=== PATIENT | female | born 1940 | race Caucasian/White ===

== ENCOUNTER → 2017-10-27 09:19 | Outpatient (CLI) | payer MEDICARE, BC, SELFPAY ==
[2017-10-27 12:05] LABS: International Normalized Ratio 2.2; Prothrombin Time (Protime)PT. 23.3 SECONDS (11.7-14.9)
== END ==
PROVIDERS: Family Provider Family Medicine; PCP Family Medicine; Visit Provider Internal Medicine Cardiovascular Disease
DX: I21.3 ST elevation (STEMI) myocardial infarction of unspecified site (principal); I48.1 Persistent atrial fibrillation
CPT/HCPCS: 36415; 85610

== ENCOUNTER → 2017-10-31 14:32 | Outpatient (CLI) | payer MEDICARE, BC, SELFPAY ==
[2017-10-28 14:37] VITALS: BP 119/76; BMI 28.1
--- NOTE | 2017-10-31 14:40 | RAD_ITS ---
STUDY: X-RAY BONE SURVEY COMPLETE REASON FOR EXAM: Female, 77 years old. Clonal gammopathy. TECHNIQUE: Single PA view of the chest. One view of the pelvis was obtained. 2 views of the cervical spine were obtained. 2 views of the thoracic spine were obtained. 2 views of the lumbar spine were obtained. AP views of the femur. AP views of the humerus and forearm AP and lateral views of the skull were obtained. COMPARISON: None. FINDINGS: CHEST: There is pleural thickening versus pleural effusion at the right lung base. There is atelectasis along the horizontal fissure. The heart is enlarged. There is a dual lead cardiac pacemaker as well as evidence of median sternotomy. Normal mediastinum and mariano. Normal visualized pulmonary arteries. There is atherosclerotic calcification of the aortic arch with tortuosity. Thoracic spine is obscured.. There is a remote fracture of the right humeral neck with nonunion and cephalad displacement of the humeral shaft. Post cystectomy clips are seen in the right upper quadrant. PELVIS: There is a non-specific bowel gas pattern. Normal visualized soft tissue structures. Normal bilateral iliac wings, sacroiliac joints and visualized sacrum. Normal visualized bilateral superior and inferior pubic rami. Normal pubic symphysis. Normal ischial tuberosities. Normal visualized right femoral head. Normal right acetabulum. There is mild articular joint space narrowing of the right hip. Normal visualized left femoral head. Normal left acetabulum. There is mild articular joint space narrowing of the left hip. CERVICAL SPINE: There are degenerative changes of the anterior atlantoaxial articulation. Normal odontoid process. Normal cervical lordosis. Normal vertebral bodies and endplates. Normal disc space heights. There is maintenance of normal alignment without evidence of vertebral fracture. The soft tissue structures are unremarkable. THORACIC SPINE: Normal kyphosis of the thoracic spine. There is no substantial scoliosis. Normal thoracic vertebrae and endplates. Normal disc space heights. No fracture or loss of vertebral height. The soft tissue structures are unremarkable. LUMBAR SPINE: There is straightening of the normal lumbar lordosis. There is no substantial scoliosis. There is a normal alignment of the vertebrae. There is generalized demineralization of the vertebral bodies. Normal disc space heights. There is no fracture or loss of vertebral axial height The soft tissue structures are unremarkable. RIGHT FEMUR: Normal visualized femur. Normal visualized soft tissue structure. Normal right tibia and fibula LEFT FEMUR: Normal visualized femur. Normal visualized soft tissue structure. Normal left tibia and fibula. RIGHT HUMERUS :Normal visualized humerus. There is no demonstrated fracture or osseous destructive process. Normal right forearm. There is no demonstrated soft tissue abnormality. LEFT HUMERUS:Normal visualized humerus. There is no demonstrated fracture or osseous destructive process. Normal left forearm. There is no demonstrated soft tissue abnormality. SKULL: There is no demonstrated soft tissue swelling. Normal osseous calvarium. Normal visualized facial bones. Normal visualized paranasal sinuses. RAD/Bone Survey Comp(Axial&Append) IMPRESSION: No evidence of lytic or blastic lesions. Electronically Signed: Phuc Kennedy DO at 18:52 EST Tel [phone], Service support ,
== END ==
PROVIDERS: Family Provider Family Medicine; PCP Family Medicine; Visit Provider Internal Medicine Hematology & Oncology
DX: D47.2 Monoclonal gammopathy (principal)
CPT/HCPCS: 77075

== ENCOUNTER → 2017-11-11 07:54 | Outpatient (CLI) | payer MEDICARE, BC, SELFPAY ==
[2017-11-11 11:55] LABS: International Normalized Ratio 2.5; Prothrombin Time (Protime)PT. 26.4 SECONDS (11.7-14.9)
== END ==
PROVIDERS: Family Provider Family Medicine; PCP Family Medicine; Visit Provider Internal Medicine Cardiovascular Disease
DX: I21.3 ST elevation (STEMI) myocardial infarction of unspecified site (principal); I48.1 Persistent atrial fibrillation
CPT/HCPCS: 36415; 85610

== ENCOUNTER → 2017-11-14 12:20 | Outpatient (CLI) | payer MEDICARE, BC, SELFPAY ==
[2017-11-14 16:10] LABS: BNP,B-Type NATRIURETIC PEPTIDE 776.2 pg/mL (0-100)
[2017-11-14 16:24] LABS: ALB/GLOB Ratio 1.2 RATIO (0.9-2.4); AST(SGOT) 14 U/L (15-37); Alanine Aminotransfer ALT/SGPT 12 U/L (13-56); Albumin, Serum 3.6 g/dL (3.2-5.0); Alkaline Phosphatase 115 U/L (45-117); Anion Gap 7 (5-15); BUN 24 mg/dL (7-18); BUN/Creat Ratio 17.6 RATIO (10-20); Calcium,Total 8.5 mg/dL (8.5-10.1); Chloride 107 mmol/L (98-107); Creatinine, Serum 1.36 mg/dL (0.55-1.02); EST Glomerular Filtration Rate 40 mL/min (>60); Est Glom Filt Rate - Afr Amer 49 mL/min (>60); Globulin 3.1 g/dL (2.2-4.2); Glucose 84 mg/dL (74-106); Potassium 3.9 mmol/L (3.5-5.1); Protein, Total 6.7 g/dL (6.4-8.2); Sodium Level 144 mmol/L (136-145); Thyroid Stim Hormone (TSH) 6.17 uIU/mL (0.358-3.74)
[2017-11-14 16:25] LABS: Absolute Lymphocyte Count 0.57 X10^3/ul (0.83-4.51); Absolute Neutrophil Count 2.5 X10^3/uL (2.0-7.7); Basophil# 0.03 X10^3/uL; Basophil% 0.8 % (0-1); Differential Indicated SCAN CRITERIA MET; Eosinophil# 0.14 X10^3/uL; Hematocrit 33.4 % (37-47); Hemoglobin 10.3 g/dl (12.0-15.0); Lymphocyte # 0.57 X10^3/ul (4.0); Lymphocyte % 16.1 % (19-41); Mean Corp Hgb Conc 30.8 g/gl (32-36); Mean Corpuscular Hgb 32.3 pg (27.0-32.0); Mean Corpuscular Volume 104.7 fL (81-99); Mean Platelet Vol. 10.6 fl (6.2-12.0); Monocyte% 8.5 % (0-10); Neutrophil # 2.49 X10^3/uL (2.7-7.7); Neutrophil % 70.3 % (47-70); POSITIVE COUNT NO; POSITIVE DIFFERENTIAL YES; POSITIVE MORPHOLOGY NO; Platelet Count 129 K/mm3 (150-450); RBC Distribution Width CV 14.1 % (11.6-14.6); RBC Distribution Width SD 54.3 fl (35.1-43.9); Red Blood Count 3.19 M/mm3 (4.2-5.4); White Blood Count 3.5 K/mm3 (4.4-11.0)
[2017-11-14 16:51] LABS: Anisocytosis 1+; Macrocytosis 1+; Platelet Estimate SLT DEC (ADEQ)
== END ==
PROVIDERS: Family Provider Family Medicine; PCP Family Medicine; Visit Provider Family Medicine
DX: N18.9 Chronic kidney disease, unspecified (principal); D64.9 Anemia, unspecified; I42.9 Cardiomyopathy, unspecified
CPT/HCPCS: 36415; 80053; 82306; 83880; 84443; 85025

== ENCOUNTER → 2017-11-25 09:07 | Outpatient (CLI) | payer MEDICARE, BC, SELFPAY ==
[2017-11-25 10:37] LABS: International Normalized Ratio 2.8; Prothrombin Time (Protime)PT. 29.4 SECONDS (11.7-14.9)
== END ==
PROVIDERS: Family Provider Family Medicine; PCP Family Medicine; Visit Provider Internal Medicine Cardiovascular Disease
DX: I48.1 Persistent atrial fibrillation (principal); I21.3 ST elevation (STEMI) myocardial infarction of unspecified site
CPT/HCPCS: 36415; 85610

== ENCOUNTER → 2017-12-16 09:29 | Outpatient (CLI) | payer MEDICARE, BC, SELFPAY ==
[2017-12-16 11:25] LABS: International Normalized Ratio 2.7; Prothrombin Time (Protime)PT. 28.6 SECONDS (11.7-14.9)
== END ==
PROVIDERS: Family Provider Family Medicine; PCP Family Medicine; Visit Provider Internal Medicine Cardiovascular Disease
DX: I21.3 ST elevation (STEMI) myocardial infarction of unspecified site (principal); I48.1 Persistent atrial fibrillation
CPT/HCPCS: 36415; 85610

== ENCOUNTER → 2017-12-30 10:11 | Outpatient (CLI) | payer MEDICARE, BC, SELFPAY ==
[2017-12-30 11:26] LABS: International Normalized Ratio 2.2; Prothrombin Time (Protime)PT. 24.4 SECONDS (11.7-14.9)
[2017-12-30 11:48] LABS: Anion Gap 8 (5-15); BUN 35 mg/dL (7-18); BUN/Creat Ratio 23.6 RATIO (10-20); Calcium,Total 8.2 mg/dL (8.5-10.1); Chloride 108 mmol/L (98-107); Creatinine, Serum 1.48 mg/dL (0.55-1.02); EST Glomerular Filtration Rate 36 mL/min (>60); Est Glom Filt Rate - Afr Amer 44 mL/min (>60); Glucose 87 mg/dL (74-106); Potassium 3.7 mmol/L (3.5-5.1); Sodium Level 145 mmol/L (136-145)
== END ==
PROVIDERS: Nurse Practitioner Family; Family Provider Family Medicine; PCP Family Medicine; Visit Provider Internal Medicine Cardiovascular Disease
DX: I21.3 ST elevation (STEMI) myocardial infarction of unspecified site (principal); I48.1 Persistent atrial fibrillation; I50.9 Heart failure, unspecified; Z79.01 Long term (current) use of anticoagulants; I48.0 Paroxysmal atrial fibrillation
CPT/HCPCS: 36415; 80048; 85610

== ENCOUNTER → 2018-01-22 08:46 | Outpatient (CLI) | payer MEDICARE, BC, SELFPAY ==
[2018-01-22 12:51] LABS: International Normalized Ratio 3.4; Prothrombin Time (Protime)PT. 34.5 SECONDS (11.7-14.9)
== END ==
PROVIDERS: Family Provider Family Medicine; PCP Family Medicine; Visit Provider Internal Medicine Cardiovascular Disease
DX: I48.1 Persistent atrial fibrillation (principal); I21.3 ST elevation (STEMI) myocardial infarction of unspecified site; Z79.01 Long term (current) use of anticoagulants
CPT/HCPCS: 36415; 85610

== ENCOUNTER 2018-01-25 20:49 | Inpatient (IN) | payer MEDICARE, BC, SELFPAY ==
[2018-01-25 20:51] VITALS: BP 109/71; PULSE 71; RESP 26; TEMP 36.9; O2SAT 99; BMI 27.4
--- NOTE | 2018-01-25 21:27 | EKG12_ITS ---
Test Reason : SOB Blood Pressure : / mmHG Vent. Rate : 141 BPM Atrial Rate : 038 BPM P-R Int : 000 ms QRS Dur : 090 ms QT Int : 086 ms P-R-T Axes : 000 -24 000 degrees QTc Int : 131 ms Electronic ventricular pacemaker Borderline ECG Confirmed by ESVIN PAUL, LEANDRO ([id number]), publications editor OG SANDRA ([id number]) on 01/28/2018 1:19:55 PM Referred By: DAISY Confirmed By:LEANDRO MCALLISTER MD
--- NOTE | 2018-01-25 21:27 | RAD_ITS ---
STUDY: X-RAY CHEST REASON FOR EXAM: Female, 77 years old. Increased shortness of breath TECHNIQUE: Single AP portable view of the chest. COMPARISON: 05/28/2017. FINDINGS: Left-sided pacemaker. The lungs are clear and expanded. There is no demonstrated pleural abnormality. There is moderate cardiac enlargement. Patient status post sternotomy. Normal mediastinum and mariano. Normal visualized pulmonary arteries. Normal visualized aortic arch and descending thoracic aorta. Normal visualized thoracic spine. Normal visualized ribs, clavicles, and shoulders. There is no demonstrated abnormality of the visualized soft tissue structures of the upper abdomen. RAD/Chest 1 View (Portable) IMPRESSION: No infiltrate. Stable cardiomegaly. Electronically Signed: Maurice Da Silva DO at 22:28 EDT , Service support ,
--- NOTE | 2018-01-25 21:28 | CT_ITS ---
CT Abdomen And Pelvis W/O Contrast INDICATION: SOB since this am, tender abd COMPARISON: None TECHNIQUE: Noncontrast axial CT examination of the abdomen and pelvis with coronal and sagittal reformatted images. FINDINGS: The heart size is markedly enlarged. A moderate-sized right-sided pleural effusion is present. The liver is normal in size. Liver contour is mildly nodular, cannot exclude cirrhosis. The gallbladder is surgically absent. The spleen is at the upper limits of normal for size. There is a questionable 3 cm hypodense lesion seen projecting at the level of the head of the pancreas, this is difficult to confirm due to the lack of oral and IV contrast. The body and tail of the pancreas appear atrophic. The kidneys demonstrate cortical renal thinning. No evidence of nephrolithiasis or hydronephrosis. The bowel loops are nondistended. The appendix is not well seen. There is no evidence of free air or free fluid. The osseous structures are osteopenic and demonstrate a superior endplate compression deformity of T11 and mild multilevel degenerative disc disease. CT/Abdomen/Pelvis without Cont IMPRESSION: Questionable approximately 3 cm hypodense lesion in the head of the pancreas, difficult to further evaluate without oral and IV contrast. Marked cardiomegaly and moderate right pleural effusion. Cirrhotic morphology of the liver. No evidence of significant splenomegaly or ascites. Cortical renal thinning. No evidence of bowel obstruction. at [id number] Reported and signed by: Shahana Maddox MD Electronically Signed: Shahana Maddox MD at 23:18 EDT Tel , Service support ,
[2018-01-25 21:42] VITALS: BP 124/64; PULSE 73; RESP 20; O2SAT 99
[2018-01-25 21:43] VITALS: O2SAT 98
--- NOTE | 2018-01-25 22:12 | ED.DCSUM_ITS ---
- ER Visit Summary Date of Service: 01/25/18 Chief Complaint: Shortness of breath History of Present Illness: The patient is a 77 F presenting with shortness of breath. She states this started today. She has shortness of breath worsened with exertion. She denies chest pain. She has had a dry cough. She denies fever. She has had diarrhea. She has history of CHF. She is on home O2 2 L. Her son states when he came home to check on her she was wearing the oxygen but was gasping for air. EMS was called. He is unsure of the oxygen tank was working at home. Physical Examination: Vitals are stable. Patient is afebrile. Alert no acute distress. 99% on 3 L HEENT exam is unremarkable. Neck is supple. Lungs are diminished bilaterally. Heart is regular rate and rhythm. Abdomen is soft mild diffuse tenderness with no rebound or guarding. Extremities are unremarkable. Skin is warm and dry. No focal neurologic deficit. Remainder of exam is unremarkable. Emergency Department Course and Treatment: EKG is paced unchanged from previous. Chest x-ray shows cardiomegaly, right pleural effusion. CBC shows a white count of 3.7, hemoglobin 9.7, platelets 117. INR is 2.1. Troponin is negative. Chemistries show sodium 147, BUN 25, creatinine 1.24. CT abdomen pelvis shows Questionable approximately 3 cm hypodense lesion in the head of the pancreas, difficult to further evaluate without oral and IV contrast. Marked cardiomegaly and moderate right pleural effusion. Cirrhotic morphology of the liver. No evidence of significant splenomegaly or ascites. Cortical renal thinning. No evidence of bowel obstruction. She is advised of these findings and will need follow-up for additional studies. Her son is unsure if her oxygen tank is working. She is improved on nasal cannula in the emergency department. Discussed with the hospitalist for observation. Disposition: Observation Impression: CHF exacerbation, right pleural effusion This note was generated with [employer] dictation software. It may contain incorrect words, spelling, and punctuation that were not noted in review of the chart prior to signing ED Disposition - Plan for ED Patient: Chief Complaint: Shortness of Breath Referrals: Landry Muse MD [Primary Care Provider] -
[2018-01-25 22:17] LABS: Absolute Lymphocyte Count 0.64 X10^3/ul (0.83-4.51); Absolute Neutrophil Count 2.4 X10^3/uL (2.0-7.7); Basophil# 0.01 X10^3/uL; Basophil% 0.3 % (0-1); Eosinophil# 0.31 X10^3/uL; Eosinophils% 8.5 % (0-5); Hematocrit 31.6 % (37-47); Hemoglobin 9.7 g/dl (12.0-15.0); Lymphocyte # 0.64 X10^3/ul (4.0); Lymphocyte % 17.5 % (19-41); Mean Corp Hgb Conc 30.7 g/gl (32-36); Mean Corpuscular Hgb 31.9 pg (27.0-32.0); Mean Corpuscular Volume 103.9 fL (81-99); Mean Platelet Vol. 9.9 fl (6.2-12.0); Monocyte# 0.34 X10^3/uL; Monocyte% 9.3 % (0-10); Neutrophil # 2.36 X10^3/uL (2.7-7.7); Neutrophil % 64.4 % (47-70); Platelet Count 117 K/mm3 (150-450); RBC Distribution Width CV 14.1 % (11.6-14.6); RBC Distribution Width SD 53.5 fl (35.1-43.9); Red Blood Count 3.04 M/mm3 (4.2-5.4); White Blood Count 3.7 K/mm3 (4.4-11.0)
[2018-01-25 22:21] LABS: International Normalized Ratio 2.1; POSITIVE COUNT NO; POSITIVE DIFFERENTIAL NO; POSITIVE MORPHOLOGY NO; Prothrombin Time (Protime)PT. 23.8 SECONDS (11.7-14.9)
[2018-01-25 22:27] LABS: Anion Gap 5 (5-15); BUN 25 mg/dL (7-18); BUN/Creat Ratio 20.2 RATIO (10-20); Calcium,Total 7.9 mg/dL (8.5-10.1); Chloride 112 mmol/L (98-107); Creatinine, Serum 1.24 mg/dL (0.55-1.02); EST Glomerular Filtration Rate 45 mL/min (>60); Est Glom Filt Rate - Afr Amer 54 mL/min (>60); Estimated Creatinine Clearance 33.33 ml/min; Glucose 93 mg/dL (74-106); Potassium 3.7 mmol/L (3.5-5.1); Sodium Level 147 mmol/L (136-145)
[2018-01-25 23:12] VITALS: BP 135/82; PULSE 70; RESP 21; O2SAT 97
[2018-01-25 23:40] VITALS: BP 135/82; PULSE 70; RESP 24; TEMP 36.9; O2SAT 97
[2018-01-26] VITALS (18 sets, daily range): BP systolic 102–132; BP diastolic 48–69; PULSE 65–78; RESP 14–20; TEMP 36.4–37.3; O2SAT 95–98; BMI 27.1
--- NOTE | 2018-01-26 00:05 | PCM.HP.STD ---
Problem List (1) Atrial flutter Status: Chronic (2) Dilated cardiomyopathy Status: Chronic (3) Paroxysmal atrial fibrillation Status: Chronic (4) Pancytopenia Status: Chronic (5) Biventricular congestive heart failure Status: Chronic (6) Cardiac pacemaker in situ Status: Chronic (7) CKD (chronic kidney disease), stage III Status: Chronic (8) Depression Status: Chronic (9) Esophageal reflux Status: Chronic (10) Chronic respiratory failure Status: Chronic (11) AICD (automatic cardioverter/defibrillator) present Status: Chronic Comment: ICD Implant January 2007, ICD Extraction/upgrade to a biventricular pacemaker 06/28; Pulse generator change & AV node ablation 09/23/12; Pacemaker generator change 05/22/17 (12) Hyperlipidemia Status: Chronic History of Present Illness Date of Admission: 01/26/18 Chief Complaint: Shortness of breath. The patient is a 77 year old F with multiple medical comorbidities as mentioned above presented to the emergency room because of shortness of breath. Her symptoms started few days ago with shortness of breath at rest, worse than usual and today, she was more short of breath and gasping for air at rest and her oxygen did not help. Shortness of breath aggravated by even minimal activity and did not relieved by rest, associated with dry cough and without other associated symptoms. She denied chest pain, palpitation, dizziness or lightheadedness. She denies fever or chills. Her son was at the bedside and he mentioned that his home oxygen does not work properly. She has history of combined systolic and diastolic CHF with ejection fraction of 20% status post ICD and she has been on Lasix. She saw Dr. Springer this past Friday for follow-up and she was doing okay. She has history of chronic respiratory failure secondary to CHF and she has been on oxygen at 2 L. She has history of paroxysmal atrial fibrillation and she has been on Coreg for rate control and on Coumadin for anticoagulation. She has history of stage III chronic kidney disease and likely has been stable and it is around 1.3-1.7 mg/dL. She has history of pancytopenia and she was evaluated by hematology and was diagnosed with monoclonal gammopathy of unknown significance. In the emergency department, she was dyspneic and tachypneic pulse ox was 99% on 3 L. After she was placed on oxygen in the ER, she felt significantly better but she remained on 3 L which is up from her baseline. Her routine blood work is remarkable for chronic pancytopenia, creatinine of 1.24 and BUN of 25. Troponin was negative. Chest x-ray revealed cardiomegaly, small right pleural effusion, minimal bilateral pulmonary vascular congestion. She is being admitted for acute on chronic combined diastolic and systolic CHF. Past Medical History Past Medical History (Chronic Problems): Chronic Problems (Last Updated 01/25/18 @ 23:43 by Martha Hernandez MD) Atrial flutter (Chronic) Dilated cardiomyopathy (Chronic) Nonrheumatic mitral valve regurgitation (Chronic) Paroxysmal atrial fibrillation (Chronic) MGUS (monoclonal gammopathy of unknown significance) (Chronic) Pancytopenia (Chronic) Biventricular congestive heart failure (Chronic) Cardiac pacemaker in situ (Chronic) CKD (chronic kidney disease), stage III (Chronic) Chronic systolic congestive heart failure (Chronic) CHF (congestive heart failure) (Chronic) Depression (Chronic) Esophageal reflux (Chronic) Heart valve replaced (Chronic) Mitral & Tricuspid valves replaced 05/19/09 @ [facility] HTN (hypertension) (Chronic) Primary cardiomyopathy (Chronic) 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) Chronic respiratory failure (Chronic) S/P mitral valve repair (Chronic) 05/19/09, Mitral valve repair with placement of #26 Fletcher-Madison annuloplasty ring, placement of Linn stitch & tricuspid valve repair with placement of #28 tricuspid annuloplasty ring @ [facility] S/P tricuspid valve repair (Chronic) 05/19/09 @ [facility] Status post ablation of atrial flutter (Chronic) Ventricular tachycardia (Chronic) AICD (automatic cardioverter/defibrillator) present (Chronic) ICD Implant January 2007, ICD Extraction/upgrade to a biventricular pacemaker 06/28; Pulse generator change & AV node ablation 09/23/12; Pacemaker generator change 05/22/17 Hyperlipidemia (Chronic) Pulmonary embolus (Chronic) Mural thrombus of cardiac apex (Chronic) Allergies levothyroxine sodium [From Synthroid] Allergy (Severe, Verified 01/23/18 14:09) Pt states it caused renal failure. thyroid, pork [From Stollings Thyroid] Allergy (Severe, Verified 01/23/18 14:09) Unknown Pt states it caused renal failure latex Allergy (Intermediate, Verified 01/23/18 14:09) Rash Home Medications: Ambulatory Orders Medication Instructions Recorded hydrALAZINE [Apresoline] 25 mg PO TID 06/29/14 Mirtazapine [Remeron] 45 mg PO QHS 10/03/15 Sertraline HCl [Zoloft] 100 mg PO QHS 10/03/15 Carvedilol [Coreg (Beta Ashwini)] 6.25 mg PO BID tab 01/14/16 Sertraline HCl [Zoloft] 50 mg PO 1200 05/28/17 Dicyclomine HCl [Bentyl] 10 mg PO DAILY 08/29/17 Melatonin/Pyridoxine HCl (B6) 10 mg PO DAILY 08/29/17 [Melatonin 10 mg Tablet] cyanocobalamin (vit B-12) 500 mcg 500 mcg PO BID tab 12/12/17 tablet lorazepam 0.5 mg tablet 0.5 mg PO BID 12/12/17 potassium chloride ER 10 mEq 10 meq PO DAILY cap 12/12/17 capsule,extended release furosemide 20 mg tablet 40 mg PO QDAY tab 01/23/18 isosorbide mononitrate ER 30 mg 15 mg PO QAM #15 tab 01/23/18 tablet,extended release 24 hr sacubitril 24 mg-valsartan 26 mg 1 tab PO BID #60 tab 01/23/18 tablet warfarin 2 mg tablet 2 mg PO .COMPLEX #90 tab 01/23/18 Surgical History: cholecystectomy, hysterectomy, pacemaker implantation, tonsillectomy, - - ICD placement. Psychiatric History: Anxiety Lives: With Family Smoking Status: Never smoker Alcohol: None Drugs: None - *Family History Maternal History Items: Heart Disease Paternal History Items: Heart Disease Review of Systems Constitutional: Denies: Anorexia, Chills, Fever, Weakness Eyes: Denies: Blurred vision, Conjunctivae Inflammation, Drainage, Redness HEENT: Denies: Difficulty Hearing, Ear Pain, Eye Pain, Nasal Congestion, Sore Throat Cardiovascular: Reports: Edema, Orthopnea, Paroxysmal Noc. Dyspnea. Denies: Chest Pain, Chest Pressure, Heaviness, Light Headedness, Syncope Respiratory: Reports: Cough, Shortness of breath at rest, Shortness of breath upon exertion. Denies: Sputum production, Wheezing Gastrointestinal: Denies: Abdominal Pain, Constipation, Diarrhea, Nausea, Vomiting Genitourinary: Denies: Dysuria, Frequency, Hematuria Musculoskeletal: Denies: Arm Pain, Back Pain, Foot Pain Skin: Denies: Dryness, Rash Neurological: Denies: Balance problems, Double vision, Change in Speech, Slurred speech, Confusion, Headaches, Incoordination, Numbness Psychiatric: Reports: Depression. Denies: Anxiety Endocrine: Denies: Change in Body Habitus, Polydipsia VTE Information - Inpt Only VTE Present on Admission: No VTE Mechan Device Prophylaxis: None VTE Pharm Prophylaxis ordered?: No - Physical Exam General: Alert, Oriented x3, Cooperative, - - Moderately short of breath. HEENT: Atraumatic, PERRLA, EOMI Oral: Moist Mucosa, No Gingival or Mucosal Lesions/ Ulcerations Neck: Supple, No JVD, Negative Carotid Bruits, Trachea Midline, Thyroid Normal Size and Texture Lungs: No wheeze, Diminished, Rales, Rhonchi, Short of Breath, - - Markedly decreased breath sounds on the right base, crackles, scattered rhonchi. Cardiovascular: Regular rate, Regular Rhythm, Normal S1, Normal S2, PMI Normal Abdomen: Bowel Sounds Present, Soft, Non Tender, Non-Distended, No Hepato-splenomegaly Extremities: No clubbing, No cyanosis, No edema Skin: No rashes, No breakdown Lymphatic: No Cervical, Supraclavicular, or Inguinal Adenopathy Neurological: Cranial nerves II-XII grossly intact, Motor Exam 5/5 strength throughout Psych/Mental Status: Normal Affect, Appropriate, Alert and oriented to time, place, person, mood and affect Vital Signs Temp Pulse Resp BP Pulse Ox 98.5 F 70 24 H 135/82 H 97 01/25/18 23:40 01/25/18 23:40 01/25/18 23:40 01/25/18 23:40 01/25/18 23:40 Oxygen Flow Rate (L/min) 2 Oxygen Delivery Method Nasal Cannula Weight: 160 lb Body Mass Index (BMI) 27.4 Laboratory Tests Past 24 Hrs 01/25/18 01/25/18 01/25/18 22:01 22:01 22:01 WBC 3.7 L RBC 3.04 L Hgb 9.7 L Hct 31.6 L MCV 103.9 H MCH 31.9 MCHC 30.7 L RDW 14.1 RDW Differential 53.5 H Plt Count 117 L MPV 9.9 Immature Gran % (Auto) 0.000 Neut % (Auto) 64.4 Lymph % (Auto) 17.5 L [place] % (Auto) 9.3 Eos % (Auto) 8.5 H Baso % (Auto) 0.3 Absolute Neuts (auto) 2.4 Absolute Lymphs (auto) 0.64 L Total Counted Not Reportable PT 23.8 H INR 2.1 Sodium 147 H Potassium 3.7 Chloride 112 H Carbon Dioxide 30.0 Anion Gap 5 BUN 25 H Creatinine 1.24 H Estim Creat Clear Calc 33.33 Est GFR (MDRD) Af Amer 54 L Est GFR (MDRD) Non-Af 45 L BUN/Creatinine Ratio 20.2 H Glucose 93 Calcium 7.9 L Troponin I < 0.02 Clinical Impression(s) from Imaging Studies Chest X-Ray 01/25/18 21:27 IMPRESSION: No infiltrate. Stable cardiomegaly. Electronically Signed: Maurice Da Silva DO at 22:28 EDT , Service support , Abdomen/Pelvis CT 01/25/18 21:28 IMPRESSION: Questionable approximately 3 cm hypodense lesion in the head of the pancreas, difficult to further evaluate without oral and IV contrast. Marked cardiomegaly and moderate right pleural effusion. Cirrhotic morphology of the liver. No evidence of significant splenomegaly or ascites. Cortical renal thinning. No evidence of bowel obstruction. at 2319 Reported and signed by: Shahana Maddox MD Electronically Signed: Shahana Maddox MD at 23:18 EDT Tel , Service support , Assessment/Plan This is a 77 years old female patient presented to the emergency room because of worsening shortness of breath and she has been having concerns about her home oxygen that is not properly working and she was found to have acute on chronic combined systolic and diastolic CHF and slightly worsening right side small pleural effusion. #1 probable acute on chronic combined systolic and diastolic CHF: Admit to PCU, cardiac catheterization technologist, serial cardiac enzymes, fluid restriction to less than 1500 cc daily, IV Lasix for diuresis, continue Coreg, hydralazine and isosorbide mononitrate, input output chart, oxygen by nasal cannula to keep O2 saturation more than 92%, PT OT evaluation and treatment. #2 right-sided small pleural effusion: Chest x-ray reviewed as well as previous chest x-rays. She does have chronic small right pleural effusion and she mentioned that she had thoracentesis in the past. Chest x-ray from today revealed very slightly larger right pleural effusion. This is likely transudative because of CHF. Plan for IV Lasix for diuresis. #3 paroxysmal atrial fibrillation: Status post pacemaker. Rate is controlled, continue Coreg for rate control and Coumadin for anticoagulation. INR is therapeutic. Patient used to be on amiodarone, not any longer. #4 biventricular congestive heart failure/cardiomyopathy: Status post ICD. She is no acute on chronic CHF as above. Plan as above. #5 stage III chronic kidney disease: Baseline creatinine has been around 1.3-1.7 mg/dL. Admission creatinine is 1.24, stable at baseline. Expect creatinine to go up with IV diuresis. #6 chronic respiratory failure: Secondary to CHF, patient has been on oxygen at 2 L. Son reported that her oxygen equipment is not working properly because she felt significantly better after she received oxygen in the emergency room. #7 hypertension: Blood pressure stable, continue Coreg, hydralazine and nitrates. #8 hyperlipidemia: She is not on statins. #9 DVT prophylaxis: On Coumadin, INR is therapeutic. Other chronic medical problems: #1 valvular heart disease, status post mitral valve repair and tricuspid valve repair. #2 depression. #3 GERD. #4 chronic pancytopenia/MGUS. This note was generated with [employer] dictation software. It may contain incorrect words, spelling, and punctuation that were not noted in checking the note before signing. Code Visit Inpatient E&M: 35491 Init Hosp L3
[2018-01-26 02:27] LABS: BNP,B-Type NATRIURETIC PEPTIDE 1252.2 pg/mL (0-100)
[2018-01-26 02:44] LABS: Magnesium 2.4 mg/dL (1.6-2.6)
[2018-01-26 06:03] LABS: Absolute Lymphocyte Count 0.67 X10^3/ul (0.83-4.51); Absolute Neutrophil Count 1.6 X10^3/uL (2.0-7.7); Basophil# 0.02 X10^3/uL; Basophil% 0.7 % (0-1); Eosinophil# 0.24 X10^3/uL; Eosinophils% 8.5 % (0-5); Hematocrit 29.7 % (37-47); Hemoglobin 9.2 g/dl (12.0-15.0); Lymphocyte # 0.67 X10^3/ul (4.0); Lymphocyte % 23.7 % (19-41); Mean Corpuscular Hgb 33.2 pg (27.0-32.0); Mean Corpuscular Volume 107.2 fL (81-99); Mean Platelet Vol. 9.7 fl (6.2-12.0); Monocyte# 0.29 X10^3/uL; Monocyte% 10.2 % (0-10); Neutrophil # 1.61 X10^3/uL (2.7-7.7); Neutrophil % 56.9 % (47-70); Platelet Count 100 K/mm3 (150-450); RBC Distribution Width CV 13.6 % (11.6-14.6); RBC Distribution Width SD 50.7 fl (35.1-43.9); Red Blood Count 2.77 M/mm3 (4.2-5.4); White Blood Count 2.8 K/mm3 (4.4-11.0)
[2018-01-26 06:05] LABS: Prothrombin Time (Protime)PT. 22.7 SECONDS (11.7-14.9)
[2018-01-26 06:11] LABS: POSITIVE COUNT NO; POSITIVE DIFFERENTIAL NO; POSITIVE MORPHOLOGY NO
[2018-01-26] MEDS: hydrALAZINE 25 MG Tablet PO ×3 (06:12→21:51)
[2018-01-26] MEDS: Dicyclomine 10 MG Capsule PO (06:13)
[2018-01-26 06:24] LABS: Anion Gap 5 (5-15); BUN 28 mg/dL (7-18); BUN/Creat Ratio 20.3 RATIO (10-20); Calcium,Total 8.5 mg/dL (8.5-10.1); Chloride 108 mmol/L (98-107); Creatinine, Serum 1.38 mg/dL (0.55-1.02); EST Glomerular Filtration Rate 39 mL/min (>60); Est Glom Filt Rate - Afr Amer 48 mL/min (>60); Estimated Creatinine Clearance 29.95 ml/min; Glucose 85 mg/dL (74-106); Sodium Level 145 mmol/L (136-145)
[2018-01-26] MEDS: Carvedilol 6.25 MG Tablet PO ×2 (08:53→21:52)
[2018-01-26] MEDS: Isosorbide Mononitrate 30 MG Tablet 15 MG PO (08:54)
[2018-01-26] MEDS: SACUBITRIL/VALSARTAN 24/26 MG TABLET 1 EACH PO ×2 (08:54→21:53)
[2018-01-26] MEDS: Furosemide 40 MG/4 ML Vial IV ×2 (08:54→17:03)
[2018-01-26] MEDS: 0.9% NaCl Peripheral Flush Adult/Peds IV ×2 (08:57→17:03)
[2018-01-26] MEDS: LORazepam 0.5 MG Tablet PO ×2 (08:57→21:57)
--- NOTE | 2018-01-26 08:59 | PCM.PN.HOSP ---
Subjective: Patient is a 77-year-old lady with history of systolic congestive heart failure with an EF of 20-25% started on Entresto 3 days prior to her admission. Presented with shortness of breath and assessment of congestive heart failure made admitted to a monitored bed for further management Objective: GENERAL: dyspneic at rest HEENT: Clear conjunctiva, NECK; supple, distended JVD. CHEST: Diminished to auscultation bilaterally, HEART: Regular S1 S2,systolic murmurs ABDOMEN: soft, non-tender, normoactive bowel sounds, RECTAL: deferred EXTREMITIES: No edema, no clubbing, no cyanosis. 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 SKIN: No lesions no erythema, Vitals/I&O's: Vital Signs Temp Pulse Resp BP Pulse Ox 98.0 F 73 14 115/52 L 98 01/26/18 08:50 01/26/18 08:50 01/26/18 08:50 01/26/18 08:50 01/26/18 08:50 Oxygen Flow Rate (L/min) 2 Oxygen Delivery Method Nasal Cannula Weight: 71.6 kg Body Mass Index (BMI) 27.1 Intake and Output for Last 24 Hours 01/24/18 01/25/18 01/26/18 23:59 23:59 23:59 Intake Total 75 / 75 Output Total 100 / 100 Balance -25 / -25 Laboratory Results 01/26/18 02:10: Troponin I < 0.02 01/26/18 02:10: Magnesium 2.4 01/26/18 05:35: WBC 2.8 L, RBC 2.77 L, Hgb 9.2 L, Hct 29.7 L, MCV 107.2 H, MCH 33.2 H, MCHC 31.0 L, RDW 13.6, RDW Differential 50.7 H, Plt Count 100 L, MPV 9.7, Immature Gran % (Auto) 0.000, Neut % (Auto) 56.9, Lymph % (Auto) 23.7, Placer % (Auto) 10.2 H, Eos % (Auto) 8.5 H, Baso % (Auto) 0.7, Absolute Neuts (auto) 1.6 L, Absolute Lymphs (auto) 0.67 L, Total Counted Not Reportable 01/26/18 05:35: PT 22.7 H, INR 2.0 01/26/18 05:35: Sodium 145, Potassium 4.0, Chloride 108 H, Carbon Dioxide 32.0, Anion Gap 5, BUN 28 H, Creatinine 1.38 H, Estim Creat Clear Calc 29.95, Est GFR (MDRD) Af Amer 48 L, Est GFR (MDRD) Non-Af 39 L, BUN/Creatinine Ratio 20.3 H, Glucose 85, Calcium 8.5, Troponin I < 0.02 Current Medications Albuterol Sulfate (Ventolin Aerosols) 2.5 mg INHALATION Q4H PRN PRN PRN Reason: Shortness of breath Carvedilol (Coreg) 6.25 mg PO BID [facility] Last Admin: 01/26/18 08:53 Dose: 6.25 mg Dicyclomine HCl (Bentyl) 10 mg PO DAILY@0700 [facility] Last Admin: 01/26/18 06:13 Dose: 10 mg Furosemide (Lasix) 40 mg IV BID@1000,1800 [facility] Last Admin: 01/26/18 08:54 Dose: 40 mg Hydralazine HCl (Apresoline) 25 mg PO TID [facility] Last Admin: 01/26/18 06:12 Dose: 25 mg Sodium Chloride () 250 mls @ 15 mls/hr IV .[id number] PRN PRN Reason: SALINE FLUSH Isosorbide Mononitrate (Imdur) 15 mg PO QAM [facility] Last Admin: 01/26/18 08:54 Dose: 15 mg Lorazepam (Ativan) 0.5 mg PO BID [facility] Last Admin: 01/26/18 08:57 Dose: 0.5 mg Magnesium Hydroxide (Milk Of Magnesia) 30 ml PO DAILY PRN PRN Reason: Constipation Melatonin (Melatonin) 10 mg PO DAILY@2200 [facility] Mirtazapine (Remeron) 45 mg PO QHS [facility] Nutritional Formula (Lactose Free) (Ensure Enlive) 120 ml PO TIDCM [facility] Last Admin: 01/26/18 08:53 Dose: Not Given Potassium Chloride (K-Dur) 10 meq PO DAILYCM [facility] Last Admin: 01/26/18 08:53 Dose: 10 meq Sertraline HCl (Zoloft) 50 mg PO 1200 [facility] Sertraline HCl (Zoloft) 100 mg PO QHS [facility] Sodium Chloride () 5 - 30 ml IV UD PRN PRN Reason: SALINE FLUSH Last Admin: 01/26/18 08:57 Dose: 10 ml Warfarin Sodium (Coumadin (Pbkc)) 2 mg PO SuFrSa@1700 [facility] PRN Reason: Protocol Warfarin Sodium (Coumadin (Pbkc)) 1 mg PO MoTuWeTh@1700 [facility] PRN Reason: Protocol Medical Necessity - Tobacco Use Smoking Status: Never smoker Tobacco Use: Non-smoker Assessment/Plan Patient is a 77-year-old lady with history of systolic congestive heart failure with an EF of 20-25% started on Entresto 3 days prior to her admission. Presented with shortness of breath and assessment of congestive heart failure made admitted to a monitored bed for further management 1. Acute on chronic heart failure with reduced ejection fraction.: Patient has been admitted to regular nursing floor placed on fluid restriction, strict input and output daily with an IV Lasix in addition to supplemental oxygen X 2. Right-sided pleural effusion attributed to patient congestive heart failure improved with diuresis 3. Chronic hypoxic respiratory failure secondary to patient CHF on baseline home O2 4. Valvular heart disease with previous history of mitral valve repair as well as tricuspid valve repair 5. Cardiomyopathy with an ejection fraction of 20-25% status post AICD placement 6. Conduction system disorder status post pacemaker placement 7. Paroxysmal A. fib rate controlled on Coreg; on systemic anticoagulation with Coumadin INR is therapeutic 8. Hypertension-blood pressure controlled, home medications continued with dose adjustment as needed 9. Depression per History 10. Chronic pancytopenia 11. MGUS 12. Dyslipidemia. History 13. DVT prophylaxis on Coumadin with therapeutic INR 14. Questionable approximately 3 cm hypodense lesion in the head of the pancreas, CT of the abdomen with oral and IV contrast ordered for subsequent evaluation Active Medications Albuterol Sulfate (Ventolin Aerosols) 2.5 mg INHALATION Q4H PRN PRN PRN Reason: Shortness of breath Carvedilol (Coreg) 6.25 mg PO BID [facility] Last Admin: 01/26/18 08:53 Dose: 6.25 mg Dicyclomine HCl (Bentyl) 10 mg PO DAILY@0700 [facility] Last Admin: 01/26/18 06:13 Dose: 10 mg Furosemide (Lasix) 40 mg IV BID@1000,1800 [facility] Last Admin: 01/26/18 08:54 Dose: 40 mg Hydralazine HCl (Apresoline) 25 mg PO TID [facility] Last Admin: 01/26/18 06:12 Dose: 25 mg Sodium Chloride () 250 mls @ 15 mls/hr IV .[id number] PRN PRN Reason: SALINE FLUSH Isosorbide Mononitrate (Imdur) 15 mg PO QAM [facility] Last Admin: 01/26/18 08:54 Dose: 15 mg Lorazepam (Ativan) 0.5 mg PO BID [facility] Last Admin: 01/26/18 08:57 Dose: 0.5 mg Magnesium Hydroxide (Milk Of Magnesia) 30 ml PO DAILY PRN PRN Reason: Constipation Melatonin (Melatonin) 10 mg PO DAILY@2200 [facility] Mirtazapine (Remeron) 45 mg PO QHS [facility] Nutritional Formula (Lactose Free) (Ensure Enlive) 120 ml PO TIDCM [facility] Last Admin: 01/26/18 08:53 Dose: Not Given Potassium Chloride (K-Dur) 10 meq PO DAILYCM [facility] Last Admin: 01/26/18 08:53 Dose: 10 meq Sertraline HCl (Zoloft) 50 mg PO 1200 [facility] Sertraline HCl (Zoloft) 100 mg PO QHS [facility] Sodium Chloride () 5 - 30 ml IV UD PRN PRN Reason: SALINE FLUSH Last Admin: 01/26/18 08:57 Dose: 10 ml Warfarin Sodium (Coumadin (Pbkc)) 2 mg PO SuFrSa@1700 [facility] PRN Reason: Protocol Warfarin Sodium (Coumadin (Pbkc)) 1 mg PO MoTuWeTh@1700 [facility] PRN Reason: Protocol Clinical Impression(s) from Imaging Studies Chest X-Ray 01/25/18 21:27 IMPRESSION: No infiltrate. Stable cardiomegaly. Electronically Signed: Maurice Da Silva DO at 22:28 EDT , Service support , Abdomen/Pelvis CT 01/25/18 21:28 IMPRESSION: Questionable approximately 3 cm hypodense lesion in the head of the pancreas, difficult to further evaluate without oral and IV contrast. Marked cardiomegaly and moderate right pleural effusion. Cirrhotic morphology of the liver. No evidence of significant splenomegaly or ascites. Cortical renal thinning. No evidence of bowel obstruction. at 2319 Reported and signed by: Shahana Maddox MD Electronically Signed: Shahana Maddox MD at 23:18 EDT Tel , Service support , Code Visit Inpatient E&M: 07691 Subs Hosp L3
--- NOTE | 2018-01-26 09:05 | PN_ITS ---
Subjective: Patient is a 77-year-old lady with history of systolic congestive heart failure with an EF of 20-25% started on Entresto 3 days prior to her admission. Presented with shortness of breath and assessment of congestive heart failure made admitted to a monitored bed for further management Objective: GENERAL: dyspneic at rest HEENT: Clear conjunctiva, NECK; supple, distended JVD. CHEST: Diminished to auscultation bilaterally, HEART: Regular S1 S2,systolic murmurs ABDOMEN: soft, non-tender, normoactive bowel sounds, RECTAL: deferred EXTREMITIES: No edema, no clubbing, no cyanosis. 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 SKIN: No lesions no erythema, Vitals/I&O's: Vital Signs Temp Pulse Resp BP Pulse Ox 98.0 F 73 14 115/52 L 98 01/26/18 08:50 01/26/18 08:50 01/26/18 08:50 01/26/18 08:50 01/26/18 08:50 Oxygen Flow Rate (L/min) 2 Oxygen Delivery Method Nasal Cannula Weight: 71.6 kg Body Mass Index (BMI) 27.1 Intake and Output for Last 24 Hours 01/24/18 01/25/18 01/26/18 23:59 23:59 23:59 Intake Total 75 / 75 Output Total 100 / 100 Balance -25 / -25 Laboratory Results 01/26/18 02:10: Troponin I < 0.02 01/26/18 02:10: Magnesium 2.4 01/26/18 05:35: WBC 2.8 L, RBC 2.77 L, Hgb 9.2 L, Hct 29.7 L, MCV 107.2 H, MCH 33.2 H, MCHC 31.0 L, RDW 13.6, RDW Differential 50.7 H, Plt Count 100 L, MPV 9.7 , Immature Gran % (Auto) 0.000, Neut % (Auto) 56.9, Lymph % (Auto) 23.7, Ector % (Auto) 10.2 H, Eos % (Auto) 8.5 H, Baso % (Auto) 0.7, Absolute Neuts (auto) 1.6 L, Absolute Lymphs (auto) 0.67 L, Total Counted Not Reportable 01/26/18 05:35: PT 22.7 H, INR 2.0 01/26/18 05:35: Sodium 145, Potassium 4.0, Chloride 108 H, Carbon Dioxide 32.0, Anion Gap 5, BUN 28 H, Creatinine 1.38 H, Estim Creat Clear Calc 29.95, Est GFR (MDRD) Af Amer 48 L, Est GFR (MDRD) Non-Af 39 L, BUN/Creatinine Ratio 20.3 H, Glucose 85, Calcium 8.5, Troponin I < 0.02 Current Medications Albuterol Sulfate (Ventolin Aerosols) 2.5 mg INHALATION Q4H PRN PRN PRN Reason: Shortness of breath Carvedilol (Coreg) 6.25 mg PO BID [facility] Last Admin: 01/26/18 08:53 Dose: 6.25 mg Dicyclomine HCl (Bentyl) 10 mg PO DAILY@0700 [facility] Last Admin: 01/26/18 06:13 Dose: 10 mg Furosemide (Lasix) 40 mg IV BID@1000,1800 [facility] Last Admin: 01/26/18 08:54 Dose: 40 mg Hydralazine HCl (Apresoline) 25 mg PO TID [facility] Last Admin: 01/26/18 06:12 Dose: 25 mg Sodium Chloride () 250 mls @ 15 mls/hr IV .[id number] PRN PRN Reason: SALINE FLUSH Isosorbide Mononitrate (Imdur) 15 mg PO QAM [facility] Last Admin: 01/26/18 08:54 Dose: 15 mg Lorazepam (Ativan) 0.5 mg PO BID [facility] Last Admin: 01/26/18 08:57 Dose: 0.5 mg Magnesium Hydroxide (Milk Of Magnesia) 30 ml PO DAILY PRN PRN Reason: Constipation Melatonin (Melatonin) 10 mg PO DAILY@2200 [facility] Mirtazapine (Remeron) 45 mg PO QHS [facility] Nutritional Formula (Lactose Free) (Ensure Enlive) 120 ml PO TIDCM [facility] Last Admin: 01/26/18 08:53 Dose: Not Given Potassium Chloride (K-Dur) 10 meq PO DAILYCM [facility] Last Admin: 01/26/18 08:53 Dose: 10 meq Sertraline HCl (Zoloft) 50 mg PO 1200 [facility] Sertraline HCl (Zoloft) 100 mg PO QHS [facility] Sodium Chloride () 5 - 30 ml IV UD PRN PRN Reason: SALINE FLUSH Last Admin: 01/26/18 08:57 Dose: 10 ml Warfarin Sodium (Coumadin (Pbkc)) 2 mg PO SuFrSa@1700 [facility] PRN Reason: Protocol Warfarin Sodium (Coumadin (Pbkc)) 1 mg PO MoTuWeTh@1700 [facility] PRN Reason: Protocol Medical Necessity - Tobacco Use Smoking Status: Never smoker Tobacco Use: Non-smoker Assessment/Plan Patient is a 77-year-old lady with history of systolic congestive heart failure with an EF of 20-25% started on Entresto 3 days prior to her admission. Presented with shortness of breath and assessment of congestive heart failure made admitted to a monitored bed for further management 1. Acute on chronic heart failure with reduced ejection fraction.: Patient has been admitted to regular nursing floor placed on fluid restriction, strict input and output daily with an IV Lasix in addition to supplemental oxygen X 2. Right-sided pleural effusion attributed to patient congestive heart failure improved with diuresis 3. Chronic hypoxic respiratory failure secondary to patient CHF on baseline home O2 4. Valvular heart disease with previous history of mitral valve repair as well as tricuspid valve repair 5. Cardiomyopathy with an ejection fraction of 20-25% status post AICD placement 6. Conduction system disorder status post pacemaker placement 7. Paroxysmal A. fib rate controlled on Coreg; on systemic anticoagulation with Coumadin INR is therapeutic 8. Hypertension-blood pressure controlled, home medications continued with dose adjustment as needed 9. Depression per History 10. Chronic pancytopenia 11. MGUS 12. Dyslipidemia. History 13. DVT prophylaxis on Coumadin with therapeutic INR 14. Questionable approximately 3 cm hypodense lesion in the head of the pancreas, CT of the abdomen with oral and IV contrast ordered for subsequent evaluation Active Medications Albuterol Sulfate (Ventolin Aerosols) 2.5 mg INHALATION Q4H PRN PRN PRN Reason: Shortness of breath Carvedilol (Coreg) 6.25 mg PO BID [facility] Last Admin: 01/26/18 08:53 Dose: 6.25 mg Dicyclomine HCl (Bentyl) 10 mg PO DAILY@0700 [facility] Last Admin: 01/26/18 06:13 Dose: 10 mg Furosemide (Lasix) 40 mg IV BID@1000,1800 [facility] Last Admin: 01/26/18 08:54 Dose: 40 mg Hydralazine HCl (Apresoline) 25 mg PO TID [facility] Last Admin: 01/26/18 06:12 Dose: 25 mg Sodium Chloride () 250 mls @ 15 mls/hr IV .[id number] PRN PRN Reason: SALINE FLUSH Isosorbide Mononitrate (Imdur) 15 mg PO QAM [facility] Last Admin: 01/26/18 08:54 Dose: 15 mg Lorazepam (Ativan) 0.5 mg PO BID [facility] Last Admin: 01/26/18 08:57 Dose: 0.5 mg Magnesium Hydroxide (Milk Of Magnesia) 30 ml PO DAILY PRN PRN Reason: Constipation Melatonin (Melatonin) 10 mg PO DAILY@2200 [facility] Mirtazapine (Remeron) 45 mg PO QHS [facility] Nutritional Formula (Lactose Free) (Ensure Enlive) 120 ml PO TIDCM [facility] Last Admin: 01/26/18 08:53 Dose: Not Given Potassium Chloride (K-Dur) 10 meq PO DAILYCM [facility] Last Admin: 01/26/18 08:53 Dose: 10 meq Sertraline HCl (Zoloft) 50 mg PO 1200 [facility] Sertraline HCl (Zoloft) 100 mg PO QHS [facility] Sodium Chloride () 5 - 30 ml IV UD PRN PRN Reason: SALINE FLUSH Last Admin: 01/26/18 08:57 Dose: 10 ml Warfarin Sodium (Coumadin (Pbkc)) 2 mg PO SuFrSa@1700 [facility] PRN Reason: Protocol Warfarin Sodium (Coumadin (Pbkc)) 1 mg PO MoTuWeTh@1700 [facility] PRN Reason: Protocol Clinical Impression(s) from Imaging Studies Chest X-Ray 01/25/18 21:27 IMPRESSION: No infiltrate. Stable cardiomegaly. Electronically Signed: Maurice Da Silva DO at 22:28 EDT , Service support , Abdomen/Pelvis CT 01/25/18 21:28 IMPRESSION: Questionable approximately 3 cm hypodense lesion in the head of the pancreas, difficult to further evaluate without oral and IV contrast. Marked cardiomegaly and moderate right pleural effusion. Cirrhotic morphology of the liver. No evidence of significant splenomegaly or ascites. Cortical renal thinning. No evidence of bowel obstruction. at 2319 Reported and signed by: Shahana Maddox MD Electronically Signed: Shahana Maddox MD at 23:18 EDT Tel , Service support , Code Visit Inpatient E&M: [id number] Subs Hosp L3
--- NOTE | 2018-01-26 09:13 | CT_ITS ---
STUDY: CT ABDOMEN AND PELVIS WITH CONTRAST REASON FOR EXAM: Female, 77 years old. Bloating. Pancreatic mass. RADIATION DOSAGE (If Supplied By Facility): CTDIvol = ( 20.07 ) mGy, DLP = ( 825.73 ) mGycm TECHNIQUE: Transaxial images were obtained from the dome of the diaphragm to the symphysis pubis without oral contrast. 100 ml of Isovue 300 contrast was administered. Sagittal and coronal images were reconstructed. Individualized dose optimization techniques were used for this CT. COMPARISON: CT abdomen pelvis without IV contrast January 25, 2018. FINDINGS: Stable small pleural effusion with subsegmental airspace disease of probable atelectasis in the inferior right base. Small inferomedial right lower lobe calcified granuloma also present. The heart is enlarged. Pacemaker/AICD leads again seen in the right heart and coronary sinus. Moderately well-defined 13.5 x 12 x 10.5 mm subcapsular low-density in the dome of the liver. (Series 2 image 7, series 601 image 44) is consistent with a cyst. Elongated left lobe of liver extends into the anterior left upper quadrant. The patent portal vein diameter is 15 mm. There are surgical clips in the gallbladder fossa consistent with a prior cholecystectomy. The common bile duct diameter reaches 11.5 mm. Normal spleen. There is diffuse atrophy of the pancreas. Ectasia of the pancreatic duct continues up to a 2.2 x 2.45 x 2.8 cm cystic lesion at the pancreatic head. Normal bilateral adrenal glands. There is stable mild to moderate cortical atrophy of the right kidney, consistent with chronic medical renal disease. There is stable mild to moderate cortical atrophy of the left kidney, consistent with chronic medical renal disease. 13 mm cortical cyst seen at the tip of the upper pole of the left kidney, while a second 12.5 mm cortical cyst is questioned at the lateral upper pole. 5.5 mm low-density at the posterolateral midpole also is likely a cortical cyst. No hydronephrosis. Normal visualized stomach. Normal small intestine. Normal colon. The appendix is visualized and appears normal. There are a few nonspecific lymph nodes in the central mesentery. There is diffuse atherosclerotic calcification of the thoracoabdominal aorta and proximal iliac arteries, without a demonstrated aneurysm. 50-69% diameter atherosclerotic stenosis suggested at the origin of the right renal artery. Normal inferior vena cava. There are a few nonspecific periaortic lymph nodes in the retroperitoneum. Normal urinary bladder. There are prostatic calcifications. Normal abdominal wall. There are stable multilevel degenerative changes of the visualized lumbar spine as well as degenerative changes of the bilateral sacroiliac joints. Stable grade 1 anterolisthesis of L5 on S1. Anterior wedging compression deformity of the T11 vertebra is unchanged. CT/Abdomen/Pelvis WITH Contrast IMPRESSION: 1. 2.8 cm cystic lesion at the head of the pancreas of indeterminate etiology. There is dilatation of the pancreatic duct up to the cystic structure, suggesting a degree of partial obstruction. Overall, there is pancreatic atrophy. 2. Small cyst in the dome of the liver. There are also cortical cysts of the left kidney. 3. Stable mild to moderate bilateral renal cortical atrophy. No hydronephrosis. 4. Atherosclerotic calcifications of the thoracoabdominal aorta and proximal iliac arteries. No demonstrated aneurysm. 50-69% diameter stenosis of the right renal artery is suggested. 5. The heart is enlarged, but unchanged. Leads of a pacemaker/AICD again noted. 6. Stable right pleural effusion with minor atelectasis in the inferior right lung base. 7. The bowel is unremarkable without signs of obstruction. The appendix is normal. 8. Stable degenerative changes of the spine and pelvis. Anterior wedging compression deformity of the T11 vertebra again noted. Electronically Signed: Serjio Condon MD at 12:05 EDT , Service support ,
[2018-01-26] MEDS: Sertraline 50 MG Tablet PO (11:17)
--- NOTE | 2018-01-26 11:39 | CASEMGMT ---
This RN CM to room to complete CM assessment and pt is heading to CT scan at this time. This RN CM will attempt again later. SStaten RN CM
--- NOTE | 2018-01-26 16:40 | CHAPLAIN ---
Type of Pastoral Visit _x__ Initial Visit ___ Follow-up Visit ___ On-call Visit ___ General Patient Visit ___ Spiritual Assessment ___ Family Conference ___ Bereavement ___ Rapid Response ___ Code Blue ___ Other (describe below) Pastoral Care Referral From _x__ Patient ___ Family ___ Nurse ___ Physician ___ Block Chopper Hand ___ Bb Shot Packer ___ Other (describe below) Sacrament/Intervention _x__ Active listening ___ Anointing ___ Jew ___ Bereavement ___ Communion _x__ Diandra exploration ___ _x__ Life review _x__ Prayer ___ Reconciliation ___ Sacrament of Sick _x__ Supportive presence ___ Wedding ___ Other (describe below) Pastoral Comments patient is anxiously awaiting results to tests that were done today; pt has a rosary that she is using for prayer support; pt received commun[facility] this [facility] from [facility]; pt says that her son moved in with her for support and added, I think he got more than he could imagine
[2018-01-26] MEDS: MELATONIN 10 MG TABLET PO (21:49)
[2018-01-26] MEDS: Sertraline 100 MG Tablet PO (21:52)
[2018-01-26] MEDS: Mirtazapine 15 MG Tablet 45 MG PO (21:53)
[2018-01-26] MEDS: Loperamide 2 MG Capsule PO (22:58)
[2018-01-27] VITALS (8 sets, daily range): BP systolic 98–108; BP diastolic 52–56; PULSE 69–71; RESP 16–18; TEMP 36.3–36.8; O2SAT 95–98
[2018-01-27] MEDS: Dicyclomine 10 MG Capsule PO (06:21)
[2018-01-27] MEDS: hydrALAZINE 25 MG Tablet PO (06:25)
--- NOTE | 2018-01-27 09:36 | PCM.DC.SUM ---
Discharge Date and Diagnosis Date of Admission: 01/26/18 Date of Discharge: 01/27/18 - Primary Discharge Diagnosis Acute on chronic systolic heart failure - Secondary Discharge Diagnosis Chronic Problems (Last Updated 01/25/18 @ 23:43 by Martha Hernandez MD) Atrial flutter (Chronic) Dilated cardiomyopathy (Chronic) Nonrheumatic mitral valve regurgitation (Chronic) Paroxysmal atrial fibrillation (Chronic) MGUS (monoclonal gammopathy of unknown significance) (Chronic) Pancytopenia (Chronic) Biventricular congestive heart failure (Chronic) Cardiac pacemaker in situ (Chronic) CKD (chronic kidney disease), stage III (Chronic) Chronic systolic congestive heart failure (Chronic) CHF (congestive heart failure) (Chronic) Depression (Chronic) Esophageal reflux (Chronic) Heart valve replaced (Chronic) Mitral & Tricuspid valves replaced 05/19/09 @ [facility] HTN (hypertension) (Chronic) Primary cardiomyopathy (Chronic) 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) Chronic respiratory failure (Chronic) S/P mitral valve repair (Chronic) 05/19/09, Mitral valve repair with placement of #26 Fletcher-Madison annuloplasty ring, placement of Linn stitch & tricuspid valve repair with placement of #28 tricuspid annuloplasty ring @ [facility] S/P tricuspid valve repair (Chronic) 05/19/09 @ [facility] Status post ablation of atrial flutter (Chronic) Ventricular tachycardia (Chronic) AICD (automatic cardioverter/defibrillator) present (Chronic) ICD Implant January 2007, ICD Extraction/upgrade to a biventricular pacemaker 06/28; Pulse generator change & AV node ablation 09/23/12; Pacemaker generator change 05/22/17 Hyperlipidemia (Chronic) Pulmonary embolus (Chronic) Mural thrombus of cardiac apex (Chronic) Hospital Course and Treatment Imaging Results: Clinical Impression(s) from Imaging Studies Chest X-Ray 01/25/18 21:27 IMPRESSION: No infiltrate. Stable cardiomegaly. Electronically Signed: Maurice Da Silva DO at 22:28 EDT , Service support , Abdomen/Pelvis CT 01/25/18 21:28 IMPRESSION: Questionable approximately 3 cm hypodense lesion in the head of the pancreas, difficult to further evaluate without oral and IV contrast. Marked cardiomegaly and moderate right pleural effusion. Cirrhotic morphology of the liver. No evidence of significant splenomegaly or ascites. Cortical renal thinning. No evidence of bowel obstruction. at 2319 Reported and signed by: Shahana Maddox MD Electronically Signed: Shahana Maddox MD at 23:18 EDT Tel , Service support , Abdomen/Pelvis CT 01/26/18 09:13 IMPRESSION: 1. 2.8 cm cystic lesion at the head of the pancreas of indeterminate etiology. There is dilatation of the pancreatic duct up to the cystic structure, suggesting a degree of partial obstruction. Overall, there is pancreatic atrophy. 2. Small cyst in the dome of the liver. There are also cortical cysts of the left kidney. 3. Stable mild to moderate bilateral renal cortical atrophy. No hydronephrosis. 4. Atherosclerotic calcifications of the thoracoabdominal aorta and proximal iliac arteries. No demonstrated aneurysm. 50-69% diameter stenosis of the right renal artery is suggested. 5. The heart is enlarged, but unchanged. Leads of a pacemaker/AICD again noted. 6. Stable right pleural effusion with minor atelectasis in the inferior right lung base. 7. The bowel is unremarkable without signs of obstruction. The appendix is normal. 8. Stable degenerative changes of the spine and pelvis. Anterior wedging compression deformity of the T11 vertebra again noted. Electronically Signed: Serjio Condon MD at 12:05 EDT , Service support , Operations: None Summary of Care Provided: Patient is a 77-year-old lady with history of systolic congestive heart failure with an EF of 20-25% started on Entresto 3 days prior to her admission. Presented with shortness of breath and assessment of congestive heart failure made admitted to a monitored bed for further management 1. Acute on chronic heart failure with reduced ejection fraction.: Patient has been admitted to a monitored nursing floor placed on fluid restriction, strict input and output daily with an IV Lasix in addition to supplemental oxygen . 2. Right-sided pleural effusion attributed to patient congestive heart failure improved with diuresis 3. Chronic hypoxic respiratory failure secondary to patient CHF on baseline home O2 4. Valvular heart disease with previous history of mitral valve repair as well as tricuspid valve repair 5. Cardiomyopathy with an ejection fraction of 20-25% status post AICD placement 6. Conduction system disorder status post pacemaker placement 7. Paroxysmal A. fib rate controlled on Coreg; on systemic anticoagulation with Coumadin INR is therapeutic 8. Hypertension-blood pressure controlled, home medications continued with dose adjustment as needed 9. Depression per History 10. Chronic pancytopenia 11. MGUS 12. Dyslipidemia. History 13. DVT prophylaxis on Coumadin with therapeutic INR 14. Questionable approximately 3 cm hypodense lesion in the head of the pancreas, CT of the abdomen with oral and IV contrast ordered for subsequent evaluation CT of the abdomen with contrast demonstrated a pancreatic cyst. Patient was informed of the results instructed to follow-up with PCP for repeat imaging in 3-6 months Discharge Diet: Low fat/ Low Cholesterol, 8 Cup Fluid Restriciton Discharge Activity: Return to Normal Activity Home Medications: Medications to take at Discharge hydrALAZINE [Apresoline] 25 mg PO TID 06/29/14 Mirtazapine [Remeron] 45 mg PO QHS 10/03/15 Sertraline HCl [Zoloft] 100 mg PO QHS 10/03/15 Carvedilol [Coreg (Beta Ashwini)] 6.25 mg PO BID tab 01/14/16 Sertraline HCl [Zoloft] 50 mg PO 1200 05/28/17 Dicyclomine HCl [Bentyl] 10 mg PO DAILY 08/29/17 Melatonin/Pyridoxine HCl (B6) [Melatonin 10 mg Tablet] 10 mg PO DAILY 08/29/17 cyanocobalamin (vit B-12) 500 mcg tablet 500 mcg PO BID tab 12/12/17 lorazepam 0.5 mg tablet 0.5 mg PO BID 12/12/17 potassium chloride ER 10 mEq capsule,extended release 10 meq PO DAILY cap 12/12/17 furosemide 20 mg tablet 40 mg PO QDAY tab 01/23/18 isosorbide mononitrate ER 30 mg tablet,extended release 24 hr 15 mg PO QAM #15 tab 01/23/18 sacubitril 24 mg-valsartan 26 mg tablet 1 tab PO BID #60 tab 01/23/18 warfarin 2 mg tablet 2 mg PO .COMPLEX #90 tab 01/23/18 Primary Care Physician: Landry Muse MD [Primary Care Provider] - Medical Necessity - Tobacco Use Smoking Status: Never smoker Tobacco Use: Non-smoker Meaningful Use Info Meaningful Use Diagnoses (Choose all that apply): CHF - CHF ROMARIO/ARB ordered at discharge?: Yes Documented LVEF (%): 20 Code Visit Inpatient E&M: 94611 Disch Hosp
--- NOTE | 2018-01-27 09:40 | DS.PCM_ITS ---
Discharge Date and Diagnosis Date of Admission: 01/26/18 Date of Discharge: 01/27/18 - Primary Discharge Diagnosis Acute on chronic systolic heart failure - Secondary Discharge Diagnosis Chronic Problems (Last Updated 01/25/18 @ 23:43 by Martha Hernandez MD) Atrial flutter (Chronic) Dilated cardiomyopathy (Chronic) Nonrheumatic mitral valve regurgitation (Chronic) Paroxysmal atrial fibrillation (Chronic) MGUS (monoclonal gammopathy of unknown significance) (Chronic) Pancytopenia (Chronic) Biventricular congestive heart failure (Chronic) Cardiac pacemaker in situ (Chronic) CKD (chronic kidney disease), stage III (Chronic) Chronic systolic congestive heart failure (Chronic) CHF (congestive heart failure) (Chronic) Depression (Chronic) Esophageal reflux (Chronic) Heart valve replaced (Chronic) Mitral & Tricuspid valves replaced 05/19/09 @ [facility] HTN (hypertension) (Chronic) Primary cardiomyopathy (Chronic) 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) Chronic respiratory failure (Chronic) S/P mitral valve repair (Chronic) 05/19/09, Mitral valve repair with placement of #26 Fletcher-Madison annuloplasty ring, placement of Linn stitch & tricuspid valve repair with placement of #28 tricuspid annuloplasty ring @ [facility] S/P tricuspid valve repair (Chronic) 05/19/09 @ [facility] Status post ablation of atrial flutter (Chronic) Ventricular tachycardia (Chronic) AICD (automatic cardioverter/defibrillator) present (Chronic) ICD Implant January 2007, ICD Extraction/upgrade to a biventricular pacemaker 06/28 ; Pulse generator change & AV node ablation 09/23/12; Pacemaker generator change Hyperlipidemia (Chronic) Pulmonary embolus (Chronic) Mural thrombus of cardiac apex (Chronic) Hospital Course and Treatment Imaging Results: Clinical Impression(s) from Imaging Studies Chest X-Ray 01/25/18 21:27 IMPRESSION: No infiltrate. Stable cardiomegaly. Electronically Signed: Maurice Da Silva DO at 22:28 EDT , Service support , Abdomen/Pelvis CT 01/25/18 21:28 IMPRESSION: Questionable approximately 3 cm hypodense lesion in the head of the pancreas, difficult to further evaluate without oral and IV contrast. Marked cardiomegaly and moderate right pleural effusion. Cirrhotic morphology of the liver. No evidence of significant splenomegaly or ascites. Cortical renal thinning. No evidence of bowel obstruction. at 2319 Reported and signed by: Shahana Maddox MD Electronically Signed: Shahana Maddox MD at 23:18 EDT Tel , Service support , Abdomen/Pelvis CT 01/26/18 09:13 IMPRESSION: 1. 2.8 cm cystic lesion at the head of the pancreas of indeterminate etiology. There is dilatation of the pancreatic duct up to the cystic structure, suggesting a degree of partial obstruction. Overall, there is pancreatic atrophy. 2. Small cyst in the dome of the liver. There are also cortical cysts of the left kidney. 3. Stable mild to moderate bilateral renal cortical atrophy. No hydronephrosis. 4. Atherosclerotic calcifications of the thoracoabdominal aorta and proximal iliac arteries. No demonstrated aneurysm. 50-69% diameter stenosis of the right renal artery is suggested. 5. The heart is enlarged, but unchanged. Leads of a pacemaker/AICD again noted. 6. Stable right pleural effusion with minor atelectasis in the inferior right lung base. 7. The bowel is unremarkable without signs of obstruction. The appendix is normal. 8. Stable degenerative changes of the spine and pelvis. Anterior wedging compression deformity of the T11 vertebra again noted. Electronically Signed: Serjio Condon MD at 12:05 EDT , Service support , Operations: None Summary of Care Provided: Patient is a 77-year-old lady with history of systolic congestive heart failure with an EF of 20-25% started on Entresto 3 days prior to her admission. Presented with shortness of breath and assessment of congestive heart failure made admitted to a monitored bed for further management 1. Acute on chronic heart failure with reduced ejection fraction.: Patient has been admitted to a monitored nursing floor placed on fluid restriction, strict input and output daily with an IV Lasix in addition to supplemental oxygen . 2. Right-sided pleural effusion attributed to patient congestive heart failure improved with diuresis 3. Chronic hypoxic respiratory failure secondary to patient CHF on baseline home O2 4. Valvular heart disease with previous history of mitral valve repair as well as tricuspid valve repair 5. Cardiomyopathy with an ejection fraction of 20-25% status post AICD placement 6. Conduction system disorder status post pacemaker placement 7. Paroxysmal A. fib rate controlled on Coreg; on systemic anticoagulation with Coumadin INR is therapeutic 8. Hypertension-blood pressure controlled, home medications continued with dose adjustment as needed 9. Depression per History 10. Chronic pancytopenia 11. MGUS 12. Dyslipidemia. History 13. DVT prophylaxis on Coumadin with therapeutic INR 14. Questionable approximately 3 cm hypodense lesion in the head of the pancreas, CT of the abdomen with oral and IV contrast ordered for subsequent evaluation CT of the abdomen with contrast demonstrated a pancreatic cyst. Patient was informed of the results instructed to follow-up with PCP for repeat imaging in 3-6 months Discharge Diet: Low fat/ Low Cholesterol, 8 Cup Fluid Restriciton Discharge Activity: Return to Normal Activity Home Medications: Medications to take at Discharge hydrALAZINE [Apresoline] 25 mg PO TID 06/29/14 Mirtazapine [Remeron] 45 mg PO QHS 10/03/15 Sertraline HCl [Zoloft] 100 mg PO QHS 10/03/15 Carvedilol [Coreg (Beta Ashwini)] 6.25 mg PO BID tab 01/14/16 Sertraline HCl [Zoloft] 50 mg PO 1200 05/28/17 Dicyclomine HCl [Bentyl] 10 mg PO DAILY 08/29/17 Melatonin/Pyridoxine HCl (B6) [Melatonin 10 mg Tablet] 10 mg PO DAILY 08/29/17 cyanocobalamin (vit B-12) 500 mcg tablet 500 mcg PO BID tab 12/12/17 lorazepam 0.5 mg tablet 0.5 mg PO BID 12/12/17 potassium chloride ER 10 mEq capsule,extended release 10 meq PO DAILY cap 12/12 furosemide 20 mg tablet 40 mg PO QDAY tab 01/23/18 isosorbide mononitrate ER 30 mg tablet,extended release 24 hr 15 mg PO QAM #15 tab 01/23/18 sacubitril 24 mg-valsartan 26 mg tablet 1 tab PO BID #60 tab 01/23/18 warfarin 2 mg tablet 2 mg PO .COMPLEX #90 tab 01/23/18 Primary Care Physician: Landry Muse MD [Primary Care Provider] - Medical Necessity - Tobacco Use Smoking Status: Never smoker Tobacco Use: Non-smoker Meaningful Use Info Meaningful Use Diagnoses (Choose all that apply): CHF - CHF ROMARIO/ARB ordered at discharge?: Yes Documented LVEF (%): 20 Code Visit Inpatient E&M: 00909 Disch Hosp
--- NOTE | 2018-01-27 09:48 | PCM.DC ---
You will use the following diet at home:: Cardiac, Fluid restricted (specify 2000 mls, 1500 mls) - 1999 Discharge Activity: Return to Normal Activity Allergies/Adverse Reactions: Allergies levothyroxine sodium [From Synthroid] Allergy (Severe, Verified 01/23/18 14:09) Pt states it caused renal failure. thyroid, pork [From [place] Thyroid] Allergy (Severe, Verified 01/23/18 14:09) Unknown Pt states it caused renal failure latex Allergy (Intermediate, Verified 01/23/18 14:09) Rash Medications to take at Discharge hydrALAZINE [Apresoline] 25 mg PO TID 06/29/14 Mirtazapine [Remeron] 45 mg PO QHS 10/03/15 Sertraline HCl [Zoloft] 100 mg PO QHS 10/03/15 Carvedilol [Coreg (Beta Ashwini)] 6.25 mg PO BID tab 01/14/16 Sertraline HCl [Zoloft] 50 mg PO 1200 05/28/17 Dicyclomine HCl [Bentyl] 10 mg PO DAILY 08/29/17 Melatonin/Pyridoxine HCl (B6) [Melatonin 10 mg Tablet] 10 mg PO DAILY 08/29/17 cyanocobalamin (vit B-12) 500 mcg tablet 500 mcg PO BID tab 12/12/17 lorazepam 0.5 mg tablet 0.5 mg PO BID 12/12/17 potassium chloride ER 10 mEq capsule,extended release 10 meq PO DAILY cap 12/12/17 furosemide 20 mg tablet 40 mg PO QDAY tab 01/23/18 isosorbide mononitrate ER 30 mg tablet,extended release 24 hr 15 mg PO QAM #15 tab 01/23/18 sacubitril 24 mg-valsartan 26 mg tablet 1 tab PO BID #60 tab 01/23/18 warfarin 2 mg tablet 2 mg PO .COMPLEX #90 tab 01/23/18 Primary Care Physician: Landry Muse MD [Primary Care Provider] - Please follow up with your Primary Care Physician in: in 1-2 weeks Please Follow Up With: Regla Figueroa PA When: in 1-2 weeks Proposed Discharge Date: 01/27/18
--- NOTE | 2018-01-27 10:10 | CASEMGMT ---
Face to Face with patient for initial transition planning/care coordination assessment. GILMAR SPENCER introduced self and role at [facility], pt voices understanding and consents to assessment at this time. Pt is sitting up in chair in no distress at this time. Pt is A/O x4 at this time and answers all questions appropriately at this time. Care providers, pharmacy, and demographics verified. See attached link. Pt voices no further concerns/needs at this time. Advised pt to ask for CM if any further questions/concerns/needs arise, voices understanding. PLAN: Home [place] GILMAR SPENCER
[2018-01-27] MEDS: LORazepam 0.5 MG Tablet PO (10:43)
[2018-01-27] MEDS: Isosorbide Mononitrate 30 MG Tablet 15 MG PO (10:43)
[2018-01-27] MEDS: SACUBITRIL/VALSARTAN 24/26 MG TABLET 1 EACH PO (10:43)
[2018-01-27] MEDS: Carvedilol 6.25 MG Tablet PO (10:43)
[2018-01-27] MEDS: Furosemide 40 MG/4 ML Vial IV (10:44)
[2018-01-27] MEDS: 0.9% NaCl Peripheral Flush Adult/Peds IV (10:49)
--- NOTE | 2018-01-27 12:15 | NURSING ---
Son at bedside. Discharge teaching completed. Discussed CHF Zone and when to call MD vs going to ED. Also discussed Coumadin dosage. Patient and son voice understanding of same. Denies questions when asked.
--- NOTE | 2018-01-30 16:00 | CASEMGMT ---
RN CM Discharge F/U phone call Attempted to reach pt x2 without success, phone issues. [facility] GILMAR CM
== END 2018-01-27 12:13 | disposition home or self-care (01) | DRG 291 ==
LOC: ED 01-26 00:09 → PCU 01-26 00:22
PROVIDERS: Admitting Provider Hospitalist; Emergency Provider Emergency Medicine; Family Provider Family Medicine; PCP Family Medicine; Visit Provider Internal Medicine
DX: I13.0 Hypertensive heart and chronic kidney disease with heart failure and stage 1 through stage 4 chronic kidney disease, or unspecified chronic kidney disease (principal); I50.43 Acute on chronic combined systolic (congestive) and diastolic (congestive) heart failure; D61.818 Other pancytopenia; J96.11 Chronic respiratory failure with hypoxia; I48.0 Paroxysmal atrial fibrillation; I42.9 Cardiomyopathy, unspecified; N18.3 Chronic kidney disease, stage 3 (moderate); E78.5 Hyperlipidemia, unspecified; D47.2 Monoclonal gammopathy; F32.9 Major depressive disorder, single episode, unspecified; I45.9 Conduction disorder, unspecified; K21.9 Gastro-esophageal reflux disease without esophagitis; Z95.810 Presence of automatic (implantable) cardiac defibrillator; Z99.81 Dependence on supplemental oxygen
CPT/HCPCS: 36415; 71045; 74176; 74177; 80048; 83735; 83880; 84484; 85025; 85610; 93005; 97162; 97165; 99284; A4216; J1940

== ENCOUNTER → 2018-02-06 09:44 | Outpatient (CLI) | payer MEDICARE, BC, SELFPAY ==
[2018-02-06 11:03] LABS: International Normalized Ratio 1.3; Prothrombin Time (Protime)PT. 16.3 SECONDS (11.7-14.9)
[2018-02-06 11:20] LABS: Anion Gap 4 (5-15); BUN 27 mg/dL (7-18); BUN/Creat Ratio 19.3 RATIO (10-20); Calcium,Total 8.7 mg/dL (8.5-10.1); Chloride 108 mmol/L (98-107); EST Glomerular Filtration Rate 39 mL/min (>60); Est Glom Filt Rate - Afr Amer 47 mL/min (>60); Glucose 88 mg/dL (74-106); Potassium 4.4 mmol/L (3.5-5.1); Sodium Level 143 mmol/L (136-145)
== END ==
PROVIDERS: Physician Assistant Medical; Family Provider Family Medicine; PCP Family Medicine; Visit Provider Internal Medicine Cardiovascular Disease
DX: I21.3 ST elevation (STEMI) myocardial infarction of unspecified site (principal); I48.1 Persistent atrial fibrillation; Z79.01 Long term (current) use of anticoagulants
CPT/HCPCS: 36415; 80048; 85610

== ENCOUNTER → 2018-02-10 09:14 | Outpatient (CLI) | payer MEDICARE, BC, SELFPAY ==
[2018-02-10 11:48] LABS: International Normalized Ratio 1.8; Prothrombin Time (Protime)PT. 21.3 SECONDS (11.7-14.9)
== END ==
PROVIDERS: Family Provider Family Medicine; PCP Family Medicine; Visit Provider Internal Medicine Cardiovascular Disease
DX: I21.3 ST elevation (STEMI) myocardial infarction of unspecified site (principal); I48.1 Persistent atrial fibrillation
CPT/HCPCS: 36415; 85610

== ENCOUNTER → 2018-02-17 10:12 | Outpatient (CLI) | payer MEDICARE, BC, SELFPAY ==
[2018-02-17 11:55] LABS: International Normalized Ratio 2.5; Prothrombin Time (Protime)PT. 26.7 SECONDS (11.7-14.9)
== END ==
PROVIDERS: Family Provider Family Medicine; PCP Family Medicine; Visit Provider Internal Medicine Cardiovascular Disease
DX: I48.1 Persistent atrial fibrillation (principal); I21.3 ST elevation (STEMI) myocardial infarction of unspecified site
CPT/HCPCS: 36415; 85610

== ENCOUNTER → 2018-03-03 10:17 | Outpatient (CLI) | payer MEDICARE, BC, SELFPAY ==
[2018-03-03 12:49] LABS: Anion Gap 6 (5-15); BUN 42 mg/dL (7-18); BUN/Creat Ratio 26.1 RATIO (10-20); Calcium,Total 8.7 mg/dL (8.5-10.1); Chloride 106 mmol/L (98-107); Creatinine, Serum 1.61 mg/dL (0.55-1.02); EST Glomerular Filtration Rate 33 mL/min (>60); Est Glom Filt Rate - Afr Amer 40 mL/min (>60); Glucose 86 mg/dL (74-106); International Normalized Ratio 3.1; Potassium 4.6 mmol/L (3.5-5.1); Prothrombin Time (Protime)PT. 32.1 SECONDS (11.7-14.9); Sodium Level 145 mmol/L (136-145)
== END ==
PROVIDERS: Physician Assistant Medical; Family Provider Family Medicine; PCP Family Medicine; Visit Provider Internal Medicine Cardiovascular Disease
DX: I48.1 Persistent atrial fibrillation (principal); I21.3 ST elevation (STEMI) myocardial infarction of unspecified site
CPT/HCPCS: 36415; 80048; 85610

== ENCOUNTER → 2018-03-17 09:43 | Outpatient (CLI) | payer MEDICARE, BC, SELFPAY ==
[2018-03-17 13:06] LABS: International Normalized Ratio 1.8; Prothrombin Time (Protime)PT. 21.1 SECONDS (11.7-14.9)
[2018-03-17 13:12] LABS: Absolute Lymphocyte Count 0.64 X10^3/ul (0.83-4.51); Absolute Neutrophil Count 1.5 X10^3/uL (2.0-7.7); Basophil# 0.02 X10^3/uL; Basophil% 0.8 % (0-1); Eosinophil# 0.22 X10^3/uL; Eosinophils% 8.4 % (0-5); Hematocrit 32.6 % (37-47); Hemoglobin 10.2 g/dl (12.0-15.0); Lymphocyte # 0.64 X10^3/ul (4.0); Lymphocyte % 24.4 % (19-41); Mean Corp Hgb Conc 31.3 g/gl (32-36); Mean Corpuscular Hgb 32.2 pg (27.0-32.0); Mean Corpuscular Volume 102.8 fL (81-99); Mean Platelet Vol. 10.2 fl (6.2-12.0); Monocyte% 7.6 % (0-10); Neutrophil # 1.54 X10^3/uL (2.7-7.7); Neutrophil % 58.8 % (47-70); Platelet Count 113 K/mm3 (150-450); RBC Distribution Width CV 13.9 % (11.6-14.6); RBC Distribution Width SD 52.6 fl (35.1-43.9); Red Blood Count 3.17 M/mm3 (4.2-5.4); White Blood Count 2.6 K/mm3 (4.4-11.0)
[2018-03-17 13:15] LABS: AST(SGOT) 17 U/L (15-37); Alanine Aminotransfer ALT/SGPT 13 U/L (13-56); Albumin, Serum 3.3 g/dL (3.2-5.0); Alkaline Phosphatase 120 U/L (45-117); Anion Gap 6 (5-15); BUN 41 mg/dL (7-18); BUN/Creat Ratio 25.2 RATIO (10-20); Calcium,Total 8.2 mg/dL (8.5-10.1); Chloride 106 mmol/L (98-107); Creatinine, Serum 1.63 mg/dL (0.55-1.02); EST Glomerular Filtration Rate 33 mL/min (>60); Est Glom Filt Rate - Afr Amer 39 mL/min (>60); Globulin 3.4 g/dL (2.2-4.2); Glucose 116 mg/dL (74-106); Potassium 3.7 mmol/L (3.5-5.1); Protein, Total 6.7 g/dL (6.4-8.2); Sodium Level 141 mmol/L (136-145); Thyroid Stim Hormone (TSH) 6.85 uIU/mL (0.358-3.74)
[2018-03-17 13:16] LABS: POSITIVE COUNT NO; POSITIVE DIFFERENTIAL NO; POSITIVE MORPHOLOGY NO
[2018-03-17 13:46] LABS: BNP,B-Type NATRIURETIC PEPTIDE 1048.7 pg/mL (0-100)
== END ==
PROVIDERS: Family Provider Family Medicine; PCP Family Medicine; Visit Provider Internal Medicine Cardiovascular Disease
DX: I21.3 ST elevation (STEMI) myocardial infarction of unspecified site (principal); I48.1 Persistent atrial fibrillation; Z79.01 Long term (current) use of anticoagulants
CPT/HCPCS: 36415; 80053; 83880; 84443; 85025; 85610

== ENCOUNTER → 2018-03-24 10:01 | Outpatient (CLI) | payer MEDICARE, BC, SELFPAY ==
[2018-03-24 11:35] LABS: International Normalized Ratio 1.9
== END ==
PROVIDERS: Family Provider Family Medicine; PCP Family Medicine; Visit Provider Internal Medicine Cardiovascular Disease
DX: I21.3 ST elevation (STEMI) myocardial infarction of unspecified site (principal); I48.1 Persistent atrial fibrillation
CPT/HCPCS: 36415; 85610

== ENCOUNTER → 2018-04-08 10:30 | Outpatient (CLI) | payer MEDICARE, BC, SELFPAY ==
[2018-04-08 12:28] LABS: Anion Gap 6 (5-15); BUN 45 mg/dL (7-18); BUN/Creat Ratio 26.2 RATIO (10-20); Calcium,Total 8.3 mg/dL (8.5-10.1); Chloride 109 mmol/L (98-107); Creatinine, Serum 1.72 mg/dL (0.55-1.02); EST Glomerular Filtration Rate 31 mL/min (>60); Est Glom Filt Rate - Afr Amer 37 mL/min (>60); Glucose 96 mg/dL (74-106); Potassium 4.6 mmol/L (3.5-5.1); Sodium Level 145 mmol/L (136-145)
[2018-04-08 12:52] LABS: Prothrombin Time (Protime)PT. 22.7 SECONDS (11.7-14.9)
== END ==
PROVIDERS: Physician Assistant Medical; Family Provider Family Medicine; PCP Family Medicine; Visit Provider Internal Medicine Cardiovascular Disease
DX: I21.3 ST elevation (STEMI) myocardial infarction of unspecified site (principal); I48.1 Persistent atrial fibrillation; I42.0 Dilated cardiomyopathy
CPT/HCPCS: 36415; 80048; 85610

== ENCOUNTER → 2018-04-27 10:22 | Outpatient (CLI) | payer MEDICARE, BC, SELFPAY ==
[2018-04-27 12:32] LABS: International Normalized Ratio 2.8; Prothrombin Time (Protime)PT. 29.6 SECONDS (11.7-14.9)
== END ==
PROVIDERS: Family Provider Family Medicine; PCP Family Medicine; Visit Provider Internal Medicine Cardiovascular Disease
DX: I21.3 ST elevation (STEMI) myocardial infarction of unspecified site (principal); I48.1 Persistent atrial fibrillation
CPT/HCPCS: 36415; 85610

== ENCOUNTER → 2018-05-19 09:49 | Outpatient (CLI) | payer MEDICARE, BC, SELFPAY ==
[2018-05-19 12:15] LABS: Absolute Lymphocyte Count 0.66 X10^3/ul (0.83-4.51); Absolute Neutrophil Count 1.3 X10^3/uL (2.0-7.7); Basophil# 0.01 X10^3/uL; Basophil% 0.4 % (0-1); Eosinophil# 0.26 X10^3/uL; Eosinophils% 10.5 % (0-5); Hematocrit 29.7 % (37-47); Hemoglobin 9.3 g/dl (12.0-15.0); Lymphocyte # 0.66 X10^3/ul (4.0); Lymphocyte % 26.7 % (19-41); Mean Corp Hgb Conc 31.3 g/gl (32-36); Mean Corpuscular Hgb 32.5 pg (27.0-32.0); Mean Corpuscular Volume 103.8 fL (81-99); Mean Platelet Vol. 10.1 fl (6.2-12.0); Monocyte# 0.22 X10^3/uL; Monocyte% 8.9 % (0-10); Neutrophil # 1.32 X10^3/uL (2.7-7.7); Neutrophil % 53.5 % (47-70); Platelet Count 123 K/mm3 (150-450); RBC Distribution Width CV 14.3 % (11.6-14.6); RBC Distribution Width SD 54.3 fl (35.1-43.9); Red Blood Count 2.86 M/mm3 (4.2-5.4); White Blood Count 2.5 K/mm3 (4.4-11.0)
[2018-05-19 12:16] LABS: POSITIVE COUNT NO; POSITIVE DIFFERENTIAL NO; POSITIVE MORPHOLOGY NO
[2018-05-19 12:41] LABS: International Normalized Ratio 1.6; Prothrombin Time (Protime)PT. 19.4 SECONDS (11.7-14.9)
[2018-05-19 12:50] LABS: ALB/GLOB Ratio 1.2 RATIO (0.9-2.4); AST(SGOT) 15 U/L (15-37); Alanine Aminotransfer ALT/SGPT 12 U/L (13-56); Albumin, Serum 3.6 g/dL (3.2-5.0); Alkaline Phosphatase 100 U/L (45-117); Anion Gap 8 (5-15); BUN 53 mg/dL (7-18); BUN/Creat Ratio 29.9 RATIO (10-20); Calcium,Total 8.3 mg/dL (8.5-10.1); Chloride 110 mmol/L (98-107); Creatinine, Serum 1.77 mg/dL (0.55-1.02); EST Glomerular Filtration Rate 30 mL/min (>60); Est Glom Filt Rate - Afr Amer 36 mL/min (>60); Glucose 87 mg/dL (74-106); Potassium 4.8 mmol/L (3.5-5.1); Protein, Total 6.6 g/dL (6.4-8.2); Sodium Level 142 mmol/L (136-145)
[2018-05-20 16:11] LABS: Albumin 3.5 g/dL (2.9-4.4); Alpha-1-Globulins 0.2 g/dL (0.0-0.4); Alpha-2-Globulins 0.5 g/dL (0.4-1.0); Immunoglobulin A 299 mg/dL (64-422); Immunoglobulin G 1037 mg/dL (700-1600); Immunoglobulin M 29 mg/dL (26-217); PROEL- TOTAL PROTEIN 6.1 g/dL (6.0-8.5)
== END ==
PROVIDERS: Internal Medicine Hematology & Oncology; Family Provider Family Medicine; PCP Family Medicine; Visit Provider Internal Medicine Cardiovascular Disease
DX: I48.1 Persistent atrial fibrillation (principal); I21.3 ST elevation (STEMI) myocardial infarction of unspecified site; Z79.01 Long term (current) use of anticoagulants
CPT/HCPCS: 36415; 80053; 82784; 84165; 85025; 85610; 86334

== ENCOUNTER → 2018-05-28 11:20 | Outpatient (CLI) | payer MEDICARE, BC, SELFPAY ==
[2018-05-28 12:16] LABS: Prothrombin Time Fingerstick 14.8 SEC (11.9-14.4)
[2018-05-28 12:51] LABS: International Normalized Ratio 1.3; Prothrombin Time (Protime)PT. 16.5 SECONDS (11.7-14.9)
== END ==
PROVIDERS: Family Provider Family Medicine; PCP Family Medicine; Visit Provider Internal Medicine Cardiovascular Disease
DX: I21.3 ST elevation (STEMI) myocardial infarction of unspecified site (principal); I48.1 Persistent atrial fibrillation
CPT/HCPCS: 36416; 85610

== ENCOUNTER → 2018-06-04 09:34 | Outpatient (CLI) | payer MEDICARE, BC, SELFPAY ==
[2018-06-05 07:42] LABS: Prothrombin Time Fingerstick 21.4 SEC (11.9-14.4)
== END ==
PROVIDERS: Family Provider Family Medicine; PCP Family Medicine; Visit Provider Internal Medicine Cardiovascular Disease
DX: I21.3 ST elevation (STEMI) myocardial infarction of unspecified site (principal); I48.1 Persistent atrial fibrillation
CPT/HCPCS: 36416; 85610

== ENCOUNTER → 2018-06-11 09:44 | Outpatient (CLI) | payer MEDICARE, BC, SELFPAY ==
[2018-06-11 15:36] LABS: Prothrombin Time Fingerstick 20.1 SEC (11.9-14.4)
== END ==
PROVIDERS: Family Provider Family Medicine; PCP Family Medicine; Visit Provider Internal Medicine Cardiovascular Disease
DX: I21.3 ST elevation (STEMI) myocardial infarction of unspecified site (principal); I48.1 Persistent atrial fibrillation
CPT/HCPCS: 36416; 85610

== ENCOUNTER → 2018-06-29 09:49 | Outpatient (CLI) | payer MEDICARE, BC, SELFPAY ==
[2018-06-29 11:00] LABS: Prothrombin Time Fingerstick 36.1 SEC (11.9-14.4)
== END ==
PROVIDERS: Family Provider Family Medicine; PCP Family Medicine; Visit Provider Internal Medicine Cardiovascular Disease
DX: I48.1 Persistent atrial fibrillation (principal); I21.3 ST elevation (STEMI) myocardial infarction of unspecified site
CPT/HCPCS: 36416; 85610

== ENCOUNTER → 2018-07-06 10:39 | Outpatient (CLI) | payer MEDICARE, BC, SELFPAY ==
[2018-07-06 11:51] LABS: Prothrombin Time Fingerstick 41.3 SEC (11.9-14.4)
[2018-07-06 12:18] LABS: Prothrombin Time (Protime)PT. 36.1 SECONDS (11.7-14.9)
[2018-07-06 12:22] LABS: International Normalized Ratio 3.6
== END ==
PROVIDERS: Family Provider Family Medicine; PCP Family Medicine; Visit Provider Internal Medicine Cardiovascular Disease
DX: I48.1 Persistent atrial fibrillation (principal)
CPT/HCPCS: 36416; 85610

== ENCOUNTER → 2018-07-15 10:11 | Outpatient (CLI) | payer MEDICARE, BC, SELFPAY ==
[2018-07-15 11:05] LABS: Prothrombin Time Fingerstick 64.8 SEC (11.9-14.4)
[2018-07-15 11:28] LABS: Prothrombin Time (Protime)PT. 48.4 SECONDS (11.7-14.9)
[2018-07-15 11:32] LABS: International Normalized Ratio 5.2
== END ==
PROVIDERS: Family Provider Family Medicine; PCP Family Medicine; Visit Provider Internal Medicine Cardiovascular Disease
DX: I21.3 ST elevation (STEMI) myocardial infarction of unspecified site (principal); I48.1 Persistent atrial fibrillation
CPT/HCPCS: 36416; 85610

== ENCOUNTER → 2018-07-20 10:11 | Outpatient (CLI) | payer MEDICARE, BC, SELFPAY ==
[2018-07-20 11:07] LABS: International Normalized Ratio 2.2; Prothrombin Time (Protime)PT. 24.7 SECONDS (11.7-14.9)
== END ==
PROVIDERS: Family Provider Family Medicine; PCP Family Medicine; Visit Provider Internal Medicine Cardiovascular Disease
DX: I21.3 ST elevation (STEMI) myocardial infarction of unspecified site (principal); I48.1 Persistent atrial fibrillation
CPT/HCPCS: 36415; 85610

== ENCOUNTER 2018-07-25 22:34 | Inpatient (IN) | payer MEDICARE, BC, SELFPAY ==
[2018-07-25 22:36] VITALS: BP 112/69; PULSE 57; PULSE 74; RESP 14; RESP 18; TEMP 36.4; O2SAT 100; O2SAT 99; BMI 28.3
--- NOTE | 2018-07-25 22:45 | RAD_ITS ---
STUDY: X-RAY CHEST REASON FOR EXAM: Female, 78 years old. Recent fall possibly secondary to syncope. TECHNIQUE: Single AP portable view of the chest. COMPARISON: January 25, 2018. FINDINGS: Patient has had a sternotomy. Cardiac monitoring leads are present. Patient has a left-sided intracardiac defibrillator and pacemaker. The lungs are hyperexpanded. There is right-sided subsegmental atelectasis and/or airspace disease. There is a small right-sided pleural effusion. There is moderate cardiac enlargement. Normal mediastinum and mariano. Normal visualized pulmonary arteries. There is atherosclerotic calcification of the aortic arch with tortuosity. There is demineralization of the osseous structures. There appears to be an ununited fracture of the proximal right humerus. This appearance is similar to the previous radiograph. There is no demonstrated abnormality of the visualized soft tissue structures of the upper abdomen. RAD/Chest 1 View (Portable) IMPRESSION: 1. Patchy right-sided airspace consolidation and/or atelectasis. 2. Cardiomegaly. Electronically Signed: Carmela Dillard MD at 23:40 EDT , Service support ,
--- NOTE | 2018-07-25 22:45 | CT_ITS ---
STUDY: CT BRAIN WITHOUT CONTRAST REASON FOR EXAM: Female, 78 years old. Right-sided head pain after fall. Patient takes Coumadin. History of uterine cancer. RADIATION DOSAGE (If Supplied By Facility): CTDIvol = ( 44.99 ) mGy, DLP = ( 829.85 ) mGycm TECHNIQUE: Transaxial CT imaging of the brain was performed without administration of intravenous contrast material. Individualized dose optimization techniques were used for this CT. COMPARISON: March 21, 2016. FINDINGS: Right parietal scalp swelling. Normal calvarium. Normal size ventricles and extra-axial spaces for the patient's age. Normal white matter tracts of the cerebral hemispheres. Normal basal ganglia and thalami. Normal brainstem. Normal cerebellum. There is no intracranial hemorrhage. There are no findings of an acute ischemic infarction. Normal visualized paranasal sinuses. CT/Brain/Head without Contrast IMPRESSION: Normal unenhanced CT scan of the brain for age. Right parietal scalp swelling. Electronically Signed: Mark Anthony Pizarro MD at 0:22 EDT , Service support ,
--- NOTE | 2018-07-25 22:46 | EKG12_ITS ---
Test Reason : SYNCOPE Blood Pressure : / mmHG Vent. Rate : 072 BPM Atrial Rate : 057 BPM P-R Int : 000 ms QRS Dur : 224 ms QT Int : 510 ms P-R-T Axes : 000 -48 -06 degrees QTc Int : 558 ms Ventricular-paced rhythm Abnormal ECG Confirmed by JUNG PAUL, BRIDGER ([id number]), online editor OG SANDRA ([id number] on 07/27/2018 3:42:19 PM Referred By: DR LOZOYA Confirmed By:BRIDGER FENG MD
--- NOTE | 2018-07-25 22:48 | ED.VISSUMM ---
- ER Visit Summary Date of Service: 07/25/18 Chief Complaint: Fall, syncope History of Present Illness: The patient is a 78 F who has history of chronic dysrhythmia status post pacemaker and defibrillator placement presents to the emergency department after syncopal event. The patient normally ambulates with a walker. She is on 3 L of home oxygen due to history of congestive heart failure. Tonight, she states she was in her normal state of health. She went to get out of her bed to use the restroom. She states she stood up and was ambulating with her walker and then collapsed in her bathroom. She struck her head. She did lose consciousness. She denies any chest pain. She has not had fever chills. She states otherwise, she is been in her normal state of health. She states she never passed out before. The last time her pacemaker was interrogated was in March of this year. Physical Examination: Vital signs reviewed General: Well-nourished, well-developed Head: Normocephalic, contusion over the right parietal area without step-off or deformity Eyes: Pupils equal and reactive, extraocular muscles intact Neck, supple, no lymphadenopathy Heart: Regular rate and rhythm Respiratory: No distress, crackles in the bases of both lungs Abdomen: Soft, nontender, nondistended, no peritoneal signs Back: Nontender Extremities: Nontender, no edema, no cords Skin: Normal color no rash Neuro: Alert and oriented, no focal or lateralizing deficits Test Results: [] Emergency Department Course and Treatment: The patient presents with dyspnea and a syncopal event. It happened after she started walking. On arrival, she does have some borderline blood pressure. She was given IV fluids. Orthostatics were obtained which were negative. Screening labs do show chronic pancytopenia. Her INR was mildly supratherapeutic at 1.7. Cardiac enzymes are normal. Her chest x-ray does show evidence of cardiomegaly and volume overload. I obtain a head CT given her fall and the fact she is on Coumadin. This shows no acute intracranial abnormality. On reevaluation, the patient is more comfortable, but given her significant cardiac history, syncopal episode, and evidence of decompensated congestive heart failure I do feel that she will need admission for cardiac monitoring and likely investigation of her pacemaker device. The patient was comfortable with this plan of care and will be admitted. Treatment Plan: [] Disposition: Admission Impression: 1. Syncope 2. Decompensated CHF This note was generated with Rollad dictation software. It may contain incorrect words, spelling, and punctuation that were not noted in review of the chart prior to signing ED Disposition - Plan for ED Patient: Chief Complaint: Fall Referrals: Landry Msue MD [Primary Care Provider] -
[2018-07-25 23:13] VITALS: BP 101/53; BP 108/62; BP 99/50; PULSE 60; PULSE 65; PULSE 70
[2018-07-25 23:41] LABS: Absolute Lymphocyte Count 0.51 X10^3/ul (0.83-4.51); Absolute Neutrophil Count 2.5 X10^3/uL (2.0-7.7); Basophil# 0.03 X10^3/uL; Basophil% 0.8 % (0-1); Eosinophil# 0.28 X10^3/uL; Eosinophils% 7.4 % (0-5); Hematocrit 26.8 % (37-47); Lymphocyte # 0.51 X10^3/ul (4.0); Lymphocyte % 13.6 % (19-41); Mean Corp Hgb Conc 29.9 g/gl (32-36); Mean Corpuscular Hgb 33.5 pg (27.0-32.0); Mean Corpuscular Volume 112.1 fL (81-99); Mean Platelet Vol. 9.8 fl (6.2-12.0); Monocyte# 0.42 X10^3/uL; Monocyte% 11.2 % (0-10); Neutrophil # 2.51 X10^3/uL (2.7-7.7); Neutrophil % 66.7 % (47-70); Platelet Count 134 K/mm3 (150-450); Red Blood Count 2.39 M/mm3 (4.2-5.4); White Blood Count 3.8 K/mm3 (4.4-11.0)
[2018-07-25 23:44] LABS: Differential Indicated SCAN CRITERIA MET; POSITIVE COUNT NO; POSITIVE DIFFERENTIAL YES; POSITIVE MORPHOLOGY NO
[2018-07-25 23:51] LABS: AST(SGOT) 10 U/L (15-37); Alanine Aminotransfer ALT/SGPT 9 U/L (13-56); Albumin, Serum 3.3 g/dL (3.2-5.0); Alkaline Phosphatase 99 U/L (45-117); Anion Gap 4 (5-15); BUN 41 mg/dL (7-18); BUN/Creat Ratio 21.7 RATIO (10-20); Calcium,Total 8.1 mg/dL (8.5-10.1); Chloride 112 mmol/L (98-107); Creatinine, Serum 1.89 mg/dL (0.55-1.02); EST Glomerular Filtration Rate 27 mL/min (>60); Est Glom Filt Rate - Afr Amer 33 mL/min (>60); Estimated Creatinine Clearance 21.53 ml/min; Globulin 3.2 g/dL (2.2-4.2); Glucose 135 mg/dL (74-106); Potassium 4.3 mmol/L (3.5-5.1); Protein, Total 6.5 g/dL (6.4-8.2); Sodium Level 143 mmol/L (136-145)
[2018-07-26] VITALS (21 sets, daily range): BP systolic 82–142; BP diastolic 42–80; PULSE 62–87; RESP 14–20; TEMP 36.4–37.1; O2SAT 97–100; BMI 28.3
[2018-07-26] LABS: International Normalized Ratio 1.7; Prothrombin Time (Protime)PT. 20.2 SECONDS (11.7-14.9)
[2018-07-26 01:07] LABS: Mucous, Urine 0 SEEN /hpf (<or=2+); Red Blood Cells-Urine 0 SEEN /hpf (0-5)
[2018-07-26 01:11] LABS: Color, Urine Yellow (Yellow); Glucose, Dipstick Normal (Normal); Ketone-Dipstick Negative (Negative); Leukocyte Esterase-Dipstick 500 /ul (Negative); Nitrite-Dipstick Positive (Negative); Occult Blood-Urine Negative /ul (Negative); Protein-Dipstick 30 mg/dl (Negative); Specific Gravity, Urine 1.015 (1.002-1.030); Urine Bilirubin Dipstick Negative (Negative); Urine Clarity Cloudy (Clear); Urine Urobilinogen Normal (Normal)
[2018-07-26 01:20] LABS: Bacteria 3+ /hpf (None Seen); Squamous Epithelial Cells - UA 5-10 SEEN /hpf (5-10); White Blood Cells 10-25 SEEN /hpf (0-5)
--- NOTE | 2018-07-26 01:30 | ECHOD_ITS ---
Reason For Study: Syncope Procedure This was a 2D Doppler, Color Flow transthoracic echocardiogram. The study was technically difficult. Exam performed portable in patient room. Left Ventricle Normal LV size. Left ventricular systolic function is normal. The estimated ejection fraction is 55 %. Transmitral diastolic flow velocities suggest mild (stage 1) diastolic dysfunction (reversed pattern). No regional wall motion abnormalities noted. Right Ventricle Moderately dilated right ventricle. ICD or pacer leads identified within the right ventricle. Normal systolic function. Atria The left atrium is severely enlarged. The right atrium is moderately enlarged. Mitral Valve An annuloplasty ring is noted in the mitral position. Status post mitral valve repair. Tricuspid Valve Mild to moderate (1-2+) tricuspid valve insufficiency. Pulmonary artery systolic pressure is 48 mmHg. An annuloplasty ring is noted in the tricuspid position. Aortic Valve Trisinus/trileaflet aortic valve. Trivial eccentric aortic valve insufficiency. Pulmonic Valve Normal pulmonic valve. Mild (1+) pulmonic valve insufficiency. Great Vessels Normal aortic root. The pulmonary artery is normal size. Normal inferior vena cava. Pericardium/Pleural No pericardial effusion. MMode/2D Measurements & Calculations LVIDd: 5.0 cm IVSd: 0.94 cm Ao root diam: 3.1 cm LVIDs: 3.3 cm LVPWd: 1.1 cm LA dimension: 5.6 cm RVDd: 5.3 cm FS: 34.2 % LAV(MOD-sp4): 146.5 ml LA A4 area: 35.2 cm2 RA A4 area: 30.6 cm2 Time Measurements MV dec time: 0.36 sec Doppler Measurements & Calculations MV E max fito: 128.1 cm/sec MV V2 max: 168.2 cm/sec Ao V2 max: 133.7 cm/sec MV A max fito: 45.8 cm/sec MV max P.3 mmHg Ao max P.2 mmHg MV E/A: 2.8 MV V2 mean: 105.7 cm/sec Ao V2 mean: 85.6 cm/sec MV mean P.1 mmHg Ao mean P.4 mmHg MV V2 VTI: 43.7 cm Ao V2 VTI: 26.2 cm LV V1 max: 127.8 cm/sec PA V2 max: 85.2 cm/sec TR max fito: 333.9 cm/sec LV V1 max P.5 mmHg TR max P.6 mmHg LV V1 mean P.7 mmHg LV V1 mean: 73.4 cm/sec LV V1 VTI: 23.2 cm Interpretation Summary Status post mitral valve repair. Normal LV size. Left ventricular systolic function is normal. The estimated ejection fraction is 55 %. Transmitral diastolic flow velocities suggest mild (stage 1) diastolic dysfunction (reversed pattern). The left atrium is severely enlarged. The right atrium is moderately enlarged. Mild to moderate (1-2+) tricuspid valve insufficiency. Ordering Physician: Richie Rice Referring Physician: Michael Muse Performed By: Dayday Dupont RCS
[2018-07-26] MEDS: Furosemide 40 MG/4 ML Vial IV ×3 (01:31→18:12)
[2018-07-26] MEDS: Ceftriaxone 1 GM/50 ML BAG IV ×2 (01:39→21:03)
[2018-07-26] MEDS: 0.9% NaCl Peripheral Flush Adult/Peds IV ×4 (01:40→18:12)
--- NOTE | 2018-07-26 07:41 | PCM.HP.STD ---
Problem List (1) Syncope and collapse Status: Acute History of Present Illness Date of Admission: 07/26/18 Chief Complaint: Syncope and fall. The patient is a 78 year old F with a significant history of chronic pancytopenia; monoclonal gammopathy nonischemic cardiomyopathy; chronic congestive heart failure [employer] class IV; open heart surgery reportedly with reconstruction of 4 valves; previous clot in his heart; A. fib status post AV node ablation with biventricular ICD placement and left atrial appendage ligation; PFO; hypertension; and hyperlipidemia [place]-term anticoagulation with Coumadin; who presented because of transient loss of consciousness leading to a fall. She presented to the emergency department on the same day of her symptoms and was admitted after midnight. Patient got up from a bed and was going to the bathroom when she passed out and fell. Her son heard the fall and came to cone picker patient. Patient hit her head and sustained an abrasion on the head. Patient denies any nausea, or palpitations before the fall. She did not bite her tongue. Also she denied any bowel or bladder incontinence. Patient reports urinary urgency At the emergency department patient was found to have abnormal urinalysis. Past Medical History Past Medical History (Chronic Problems): Chronic Problems (Last Updated 02/17/18 @ 09:08 by LOGAN Buitrago) Atrial flutter (Chronic) Dilated cardiomyopathy (Chronic) Nonrheumatic mitral valve regurgitation (Chronic) Paroxysmal atrial fibrillation (Chronic) MGUS (monoclonal gammopathy of unknown significance) (Chronic) Pancytopenia (Chronic) Biventricular congestive heart failure (Chronic) Cardiac pacemaker in situ (Chronic) ICD implant January 2007; ICD extraction/upgrade to a biventricular Pacemaker 06/28, #26 Fletcher-Madison annuloplasty ring; Pacemaker generator change 05/22/17; CKD (chronic kidney disease), stage III (Chronic) Chronic systolic congestive heart failure (Chronic) CHF (congestive heart failure) (Chronic) Depression (Chronic) Esophageal reflux (Chronic) Heart valve replaced (Chronic) Mitral & Tricuspid valves replaced 05/19/09 @ [facility] HTN (hypertension) (Chronic) Primary cardiomyopathy (Chronic) 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) Chronic respiratory failure (Chronic) S/P mitral valve repair (Chronic) 05/19/09, Mitral valve repair with placement of #26 Fletcher-Madison annuloplasty ring, placement of Linn stitch & tricuspid valve repair with placement of #28 tricuspid annuloplasty ring @ [facility] S/P tricuspid valve repair (Chronic) 05/19/09 @ [facility] Status post ablation of atrial flutter (Chronic) Ventricular tachycardia (Chronic) AICD (automatic cardioverter/defibrillator) present (Chronic) ICD Implant January 2007, ICD Extraction/upgrade to a biventricular pacemaker 06/28; Pulse generator change & AV node ablation 09/23/12; Pacemaker generator change 05/22/17 Hyperlipidemia (Chronic) Pulmonary embolus (Chronic) Mural thrombus of cardiac apex (Chronic) Medical History: Medical History (Last Reviewed 07/26/18 @ 08:34 by Richie Rice MD) Paroxysmal atrial fibrillation (Chronic) I48.0 MGUS (monoclonal gammopathy of unknown significance) (Chronic) D47.2 Pancytopenia (Chronic) D61.818 Biventricular congestive heart failure (Chronic) I50.9 Cardiac pacemaker in situ (Chronic) Z95.0 ICD implant January 2007; ICD extraction/upgrade to a biventricular Pacemaker 06/28, #26 Fletcher-Madison annuloplasty ring; Pacemaker generator change 05/22/17; CKD (chronic kidney disease), stage III (Chronic) Chronic systolic congestive heart failure (Chronic) I50.22 CHF (congestive heart failure) (Chronic) I50.9 HTN (hypertension) (Chronic) I10 Primary cardiomyopathy (Chronic) I42.8 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) N18.9, D63.1 Chronic respiratory failure (Chronic) J96.10 Ventricular tachycardia (Chronic) I47.2 Hyperlipidemia (Chronic) E78.5 Pulmonary embolus (Chronic) I26.99 Mural thrombus of cardiac apex (Chronic) [id number] Shortness of breath R06.02 History of cardioversion Z98.890 for atrial flutter 04/30, 08/30 Dizziness and giddiness R42 Fatigue R53.83 Syncope R55 history of temporary dialysis Allergies levothyroxine sodium [From Synthroid] Allergy (Severe, Verified 02/13/18 14:45) Pt states it caused renal failure. thyroid, pork [From [place] Thyroid] Allergy (Severe, Verified 02/13/18 14:45) Unknown Pt states it caused renal failure latex Allergy (Intermediate, Verified 02/13/18 14:45) Rash Home Medications: Ambulatory Orders Medication Instructions Recorded Mirtazapine [Remeron] 45 mg PO QHS 10/03/15 Sertraline HCl [Zoloft] 100 mg PO QHS 10/03/15 Dicyclomine HCl [Bentyl] 10 mg PO DINNER 08/29/17 Melatonin/Pyridoxine HCl (B6) 10 mg PO QHS 08/29/17 [Melatonin 10 mg Tablet] cyanocobalamin (vit B-12) 500 mcg 1,000 mcg PO DAILY tab 12/12/17 tablet lorazepam 0.5 mg tablet 0.5 mg PO BID 12/12/17 furosemide 20 mg tablet 40 mg PO QDAY tab 01/23/18 hydralazine 25 mg tablet 25 mg PO TID #270 tab 02/02/18 Carvedilol 6.25 mg PO BID 07/26/18 Cholecalciferol (Vitamin D3) 5,000 unit PO DAILY 07/26/18 [Vitamin D3] Lorazepam [Ativan] 1 mg PO QHS 07/26/18 Sacubitril/Valsartan 49-51 mg 1 each PO BID 07/26/18 [Entresto 49 mg-51 mg Tablet] Sertraline HCl [Zoloft] 50 mg PO 1500 07/26/18 Warfarin Sodium 2 mg PO MOTUWETHFR 07/26/18 Warfarin Sodium [Coumadin] 4 mg PO SUSA 07/26/18 isosorbide mononitrate 10 mg tablet 15 mg PO DAILY 07/26/18 Surgical History: Surgical History (Last Reviewed 07/26/18 @ 08:35 by Richie Rice MD) S/P mitral valve repair (Chronic) Z98.890 05/19/09, Mitral valve repair with placement of #26 Fletcher-Madison annuloplasty ring, placement of Linn stitch & tricuspid valve repair with placement of #28 tricuspid annuloplasty ring @ [facility] S/P tricuspid valve repair (Chronic) Z98.890 05/19/09 @ [facility] Status post ablation of atrial flutter (Chronic) Z98.890, Z86.79 AICD (automatic cardioverter/defibrillator) present (Chronic) Z95.810 ICD Implant January 2007, ICD Extraction/upgrade to a biventricular pacemaker 06/28; Pulse generator change & AV node ablation 09/23/12; Pacemaker generator change 05/22/17 H/O cardiac radiofrequency ablation Z98.890 04/2010 History of cardiac cath Z98.890 1996. (left) 02/2001. 06/2005. (right and left) 03/2009. Hx of cholecystectomy Z90.49 ligation of left atrial appendage Surgical History: cholecystectomy, hysterectomy, pacemaker implantation, tonsillectomy, - - ICD placement. Psychiatric History: Anxiety Smoking Status: Never smoker - *Family History Maternal Family History: Family History (Last Reviewed 07/26/18 @ 08:35 by Richie Rice MD) Father CAD (coronary artery disease) Myocardial infarction Mother CVA (cerebral vascular accident) CHF (congestive heart failure) Daughter Arthritis Atrial fibrillation Hyperlipidemia History Items: Heart Disease Paternal Family History: Family History (Last Reviewed 07/26/18 @ 08:35 by Richie Rice MD) Father CAD (coronary artery disease) Myocardial infarction Mother CVA (cerebral vascular accident) CHF (congestive heart failure) Daughter Arthritis Atrial fibrillation Hyperlipidemia History Items: Heart Disease Review of Systems Constitutional: Denies: Chills, Fever, Weight Change HEENT: Denies: Head Aches, Sinus Congestion, Sinus Drainage Cardiovascular: Reports: Orthopnea, Paroxysmal Noc. Dyspnea. Denies: Chest Pain, Palpitations Respiratory: Reports: Cough, Shortness of Breath. Denies: Sputum production Gastrointestinal: Denies: Abdominal Pain, Nausea, Vomiting Genitourinary: Reports: Urgency. Denies: Dysuria Musculoskeletal: Denies: Joint Pain, Joint Tenderness Skin: Denies: Rash, Wounds Neurological: Denies: Numbness, Tingling, Focal weakness Psychiatric: Denies: Anxiety, Depression, Homicidal Ideations, Suicidal Ideations Hematologic/ Lymphatic: Denies: Easy Bruising, Easy Bleeding VTE Information - Inpt Only VTE Present on Admission: No VTE Mechan Device Prophylaxis: None VTE Pharm Prophylaxis ordered?: Yes Reason prophylaxis not ordered:: Treatment Not Indicated Patient Problems: Active and Suspected Problems (Last Updated 02/17/18 @ 09:08 by LOGAN Buitrago) Syncope and collapse (Acute) - Physical Exam General: Alert, Oriented x3, Cooperative HEENT: Atraumatic, PERRLA, EOMI, Normocephalic Neck: Supple, No JVD, Negative Carotid Bruits Lungs: Wheezes - Right posterior lungs. Cardiovascular: Regular rate Abdomen: Bowel Sounds Present, Soft, Non Tender Extremities: No edema, Capillary Refill Less than 3 Seconds Skin: No rashes, No breakdown Musculoskeletal: No Tenderness to Palpation of Joints or Extremities Neurological: Cranial nerves II-XII grossly intact Psych/Mental Status: Normal Affect, Appropriate Vital Signs Temp Pulse Resp BP Pulse Ox 97.8 F 72 18 94/50 L 100 07/26/18 05:45 07/26/18 06:57 07/26/18 05:45 07/26/18 05:45 07/26/18 05:45 Oxygen Flow Rate (L/min) 3.5 Oxygen Delivery Method Nasal Cannula Weight: 74.3 kg Body Mass Index (BMI) 28.3 Orthostatic Vital Signs Start: 07/26/18 05:50 Freq: q24h Status: Active Protocol: Activity Type Activity Date Activity User E-Sign Co-Sign Detail Recorded Client Recorded Date Recorded By Document 07/26/18 05:45 AML [id number] 07/26/18 05:51 AML 07/26/18 05:45 Orthostatic Vitals Standing -Blood Pressure (90/60-120/80) 113/60 -Extremity Use Left Arm -Pulse Rate (60-100) 69 Sitting -Blood Pressure (90/60-120/80) 108/80 -Extremity Use Left Arm -Pulse Rate (60-100) 73 Lying -Blood Pressure (90/60-120/80) 94/50 L -Extremity Use Left Arm -Pulse Rate (60-100) 71 Intake and Output for Last 24 Hours 07/24/18 07/25/18 07/26/18 23:59 23:59 22:59 Intake Total 212 / 212 Output Total 400 / 400 Balance -188 / -188 Laboratory Tests Past 24 Hrs 07/25/18 07/25/18 07/25/18 23:20 23:20 23:20 WBC 3.8 L RBC 2.39 L Hgb 8.0 L Hct 26.8 L MCV 112.1 H MCH 33.5 H MCHC 29.9 L RDW 14.0 RDW Differential 55.0 H Plt Count 134 L MPV 9.8 Immature Gran % (Auto) 0.300 Neut % (Auto) 66.7 Lymph % (Auto) 13.6 L [place] % (Auto) 11.2 H Eos % (Auto) 7.4 H Baso % (Auto) 0.8 Absolute Neuts (auto) 2.5 Absolute Lymphs (auto) 0.51 L Total Counted Not Reportable PT 20.2 H INR 1.7 Sodium 143 Potassium 4.3 Chloride 112 H Carbon Dioxide 27.0 Anion Gap 4 L BUN 41 H Creatinine 1.89 H Estim Creat Clear Calc 21.53 Est GFR (MDRD) Af Amer 33 L Est GFR (MDRD) Non-Af 27 L BUN/Creatinine Ratio 21.7 H Glucose 135 H Calcium 8.1 L Total Bilirubin 0.40 AST 10 L ALT 9 L Alkaline Phosphatase 99 Troponin I < 0.015 B-Natriuretic Peptide Total Protein 6.5 Albumin 3.3 Globulin 3.2 Albumin/Globulin Ratio 1.0 Urine Color Urine Clarity Urine pH Ur Specific [place] Urine Protein Urine Glucose (UA) Urine Ketones Urine Occult Blood Urine Nitrite Urine Bilirubin Urine Urobilinogen Ur Leukocyte Esterase Urine RBC Urine WBC Ur Squamous Epith Cells Urine Bacteria Urine Mucus 07/25/18 07/26/18 07/26/18 23:20 00:55 07:18 WBC Pending RBC Pending Hgb Pending Hct Pending MCV Pending MCH Pending MCHC Pending RDW Pending RDW Differential Pending Plt Count Pending MPV Immature Gran % (Auto) Neut % (Auto) Pending Lymph % (Auto) [place] % (Auto) Eos % (Auto) Baso % (Auto) Absolute Neuts (auto) Pending Absolute Lymphs (auto) Total Counted Pending PT INR Sodium Potassium Chloride Carbon Dioxide Anion Gap BUN Creatinine Estim Creat Clear Calc Est GFR (MDRD) Af Amer Est GFR (MDRD) Non-Af BUN/Creatinine Ratio Glucose Calcium Total Bilirubin AST ALT Alkaline Phosphatase Troponin I B-Natriuretic Peptide 2470.4 H Total Protein Albumin Globulin Albumin/Globulin Ratio Urine Color Yellow Urine Clarity Cloudy Urine pH 6.0 Ur Specific [place] 1.015 Urine Protein 30 H Urine Glucose (UA) Normal Urine Ketones Negative Urine Occult Blood Negative Urine Nitrite Positive H Urine Bilirubin Negative Urine Urobilinogen Normal Ur Leukocyte Esterase 500 H Urine RBC 0 SEEN Urine WBC 10-25 SEEN Ur Squamous Epith Cells 5-10 SEEN Urine Bacteria 3+ Urine Mucus 0 SEEN 07/26/18 07:18 WBC RBC Hgb Hct MCV MCH MCHC RDW RDW Differential Plt Count MPV Immature Gran % (Auto) Neut % (Auto) Lymph % (Auto) [place] % (Auto) Eos % (Auto) Baso % (Auto) Absolute Neuts (auto) Absolute Lymphs (auto) Total Counted PT INR Sodium Pending Potassium Pending Chloride Pending Carbon Dioxide Pending Anion Gap Pending BUN Pending Creatinine Pending Estim Creat Clear Calc Est GFR (MDRD) Af Amer Pending Est GFR (MDRD) Non-Af Pending BUN/Creatinine Ratio Pending Glucose Pending Calcium Pending Total Bilirubin AST ALT Alkaline Phosphatase Troponin I B-Natriuretic Peptide Total Protein Albumin Globulin Albumin/Globulin Ratio Urine Color Urine Clarity Urine pH Ur Specific [place] Urine Protein Urine Glucose (UA) Urine Ketones Urine Occult Blood Urine Nitrite Urine Bilirubin Urine Urobilinogen Ur Leukocyte Esterase Urine RBC Urine WBC Ur Squamous Epith Cells Urine Bacteria Urine Mucus Assessment/Plan All Active Problems (Last Updated 02/17/18 @ 09:08 by LOGAN Buitrago) Syncope and collapse (Acute) Left atrial thrombus (Acute) The patient is a 78 year old F with a significant history of nonischemic cardiomyopathy; chronic congestive heart failure [employer] [employer] class IV with ejection fraction of about 20%; open heart surgery reportedly with reconstruction of 4 valves; previous clot in left ventricle; A. fib status post AV node ablation with biventricular ICD placement and left atrial appendage ligation; PFO; hypertension; and hyperlipidemia; long-term anticoagulation with Coumadin; who presented because of transient loss of consciousness with fall ;and also found to have symptomatic cystitis; and elevated BNP with radiographic evidence of likely acute exacerbation of underlying heart failure with reduced ejection fraction. Syncope Etiology is unclear at this time. Differential diagnosis includes dysrhythmia, exacerbation of heart failure, valvular disease or other. Will admit to PCU for telemetry monitoring. With a history of cardiomyopathy and valvular heart disease will check echocardiogram. Her last pacemaker interrogation was on 07/22/1018 of this year. Ordering physician was Dr. Springer. Orthostatic blood pressures ordered. Exacerbation of heart failure Review of old records showed echocardiogram on depicted a left ventricular ejection fraction of about 20%. Patient noted to have elevated BNP of 2470.4 on this admission Review of old records show that her BNP on 03/17/2018 was 1048.7. Independent review of chest x-ray showed increased cardiac silhouette with interstitial edema. Initially received 500 mL's bolus at emergency department and then was given Lasix 40 mg IV x1. At home patient takes Lasix 40 mg po daily. Lasix 40 mg IV twice daily ordered. Trend BMP Daily weights Strict intake and output. Cardiac diet. Continue Coreg, Entresto, Imdur and Apresoline. Cystitis Patient noted with abnormal urinalysis Urine cultures are pending Reports urinary urgency. Ceftriaxone started. Trend CBC Chronic A. fib Patient placed on monitor INR subtherapeutic at 1.7. Lovenox bridge on heparin bridge was not started due to worsening thrombocytopenia. She takes Coumadin 4 mg Friday and Saturdays; and on Friday to Fridays she takes 2 mg p.o. Coumadin 6 mg today. Trend INR daily and adjust Coumadin daily as necessary. History of left ventricular thrombus INR not therapeutic. Lovenox bridge on heparin bridge was not started due to worsening thrombocytopenia. Daily INR and titrate Coumadin as necessary. History of monoclonal gammopathy of unknown significance and pancytopenia. Patient noted to have decreased blood counts and all lines. Trend CBC. DVT prophylaxis Not indicated in the setting of Coumadin therapy and Lovenox. Code Visit OBSV E&M: 70172 Initial observation care L3
[2018-07-26 07:42] LABS: Absolute Lymphocyte Count 0.25 X10^3/ul (0.83-4.51); Basophil# 0.01 X10^3/uL; Basophil% 0.4 % (0-1); Eosinophil# 0.13 X10^3/uL; Hematocrit 25.2 % (37-47); Hemoglobin 7.5 g/dl (12.0-15.0); Lymphocyte # 0.25 X10^3/ul (4.0); Lymphocyte % 9.6 % (19-41); Mean Corp Hgb Conc 29.8 g/gl (32-36); Monocyte# 0.18 X10^3/uL; Monocyte% 6.9 % (0-10); Neutrophil # 2.04 X10^3/uL (2.7-7.7); Neutrophil % 78.1 % (47-70); Platelet Count 106 K/mm3 (150-450); Red Blood Count 2.27 M/mm3 (4.2-5.4); White Blood Count 2.6 K/mm3 (4.4-11.0)
[2018-07-26 07:47] LABS: Differential Indicated SCAN CRITERIA MET; POSITIVE COUNT NO; POSITIVE DIFFERENTIAL YES; POSITIVE MORPHOLOGY NO
[2018-07-26 07:49] LABS: Anion Gap 6 (5-15); BUN 42 mg/dL (7-18); BUN/Creat Ratio 23.9 RATIO (10-20); Calcium,Total 7.8 mg/dL (8.5-10.1); Chloride 115 mmol/L (98-107); Creatinine, Serum 1.76 mg/dL (0.55-1.02); EST Glomerular Filtration Rate 30 mL/min (>60); Est Glom Filt Rate - Afr Amer 36 mL/min (>60); Estimated Creatinine Clearance 23.12 ml/min; Glucose 93 mg/dL (74-106); Potassium 4.1 mmol/L (3.5-5.1); Sodium Level 144 mmol/L (136-145)
[2018-07-26 07:58] LABS: Hypochromasia 2+; Macrocytosis 2+; Ovalocyte 1+; Platelet Estimate SLT DEC (ADEQ)
[2018-07-26] MEDS: Carvedilol 6.25 MG Tablet PO ×2 (09:37→21:06)
[2018-07-26] MEDS: SACUBITRIL/VALSARTAN 49-51 MG TABLET 1 EACH PO ×2 (09:37→21:07)
[2018-07-26] MEDS: Isosorbide Mononitrate 30 MG Tablet 15 MG PO (09:37)
[2018-07-26] MEDS: Cyanocobalamin 500 MCG Tablet 1000 MCG PO (09:37)
--- NOTE | 2018-07-26 09:38 | PCM.PN.BLA ---
Progress Note This is a 78 years old female patient presented to the emergency room because of fall and syncope. She was found to have findings consistent with acute on chronic combined systolic and diastolic CHF and acute on chronic anemia. Patient seen and examined today. She stated that she is feeling a little bit better today. She denied any chest pain. She mentioned that her breathing is slightly worsened last night but has been okay today. She reported dry cough without sputum production. She admits that she was dizzy last night before she passed out. She lost her consciousness for about 2 minutes. No reported or witnessed seizure. She does have a history of chronic combined CHF status post ICD. She had a pacemaker for atrial fibrillation that was interrogated recently but I could not find the result report. On physical examination: Chest: Decreased breath sounds at the bases, more on the right base with faint crackles, no wheezes, no rhonchi. Heart: S1-S2 normal, no murmur. Abdomen: Soft, nontender. Extremities: Trace edema. Routine blood work remarkable for hemoglobin of 7.5 g/dL, WBC of 2.6, platelet count of [id number]. She is pancytopenic and this is chronic. Creatinine is 1.76 which is also chronic and stable. Troponin was negative. BNP was elevated. EKG revealed paced rhythm. Chest x-ray showed right pleural effusion, cardiomegaly and pulmonary vascular congestion more on the right base. Assessment and plan: #1 acute on chronic systolic and diastolic CHF: On IV Lasix, on Coreg, hydralazine, isosorbide mononitrate. 2D echocardiogram ordered. #2 syncope: Unclear etiology. EKG revealed paced rhythm. Pacemaker was interrogated recently, no report available. Plan for cardiology consult. #3 acute on chronic anemia: Patient denies any bleeding from body orifices. Hemoglobin 7.5 g/dL. Plan to transfuse 1 unit of packed RBCs, stool for occult blood. #4 pancytopenia: Again this is chronic. This note was generated with [employer] software. It may contain incorrect words, spelling, and punctuation that were not noted in checking the note before signing.
[2018-07-26] MEDS: LORazepam 0.5 MG Tablet PO ×2 (09:40→16:03)
[2018-07-26] MEDS: Sertraline 50 MG Tablet PO (15:57)
--- NOTE | 2018-07-26 17:05 | PCM.CONS.C ---
Reason for Consult Date of Consultation: 07/26/18 Reason for Consultation: Syncopal episode History of Present Illness: The patient is a 78 year old F who presents to the emergency room with a syncopal episode. She says that she had been in his stable state of health and then she is not quite sure what happened but she was getting up from the bed and the next thing they knew she had a syncopal episode. There was no prior chest pain or paroxysmal nocturnal dyspnea or pedal edema she does not think that her defibrillator fired. She has a history of nonischemic cardiomyopathy, chronic systolic congestive heart failure [place] Association class IV, valvular heart disease status post mitral valve repair with #26 [place] angioplasty ring and tricuspid valve repair with a #28 tricuspid ring, atrial fibrillation/flutter post AV node ablation with Bi-V ICD placement, left atrial appendage ligation, PFO, hypertension, hyperlipidemia, and previous syncope. At her appointment last month she was started on Entresto. Unfortunately right after her office visit she was admitted to [facility] for acute on chronic systolic congestive heart failure. She did start Entresto of following her hospital stay. She believes that she has been feeling better since starting the Entresto She feels that she has a little bit more energy and is not as fatigued. She does not have any chest discomfort. She has not had any issues with positional dizziness. She does not have any lower extremity edema. She does not have any palpitations that she is aware of. It does not appear that this episode was immediately after taking 1 of her Entresto pills. Past Medical History Allergies/Adverse Reactions: Allergies levothyroxine sodium [From Synthroid] Allergy (Severe, Verified 02/13/18 14:45) Pt states it caused renal failure. thyroid, pork [From [place] Thyroid] Allergy (Severe, Verified 02/13/18 14:45) Unknown Pt states it caused renal failure latex Allergy (Intermediate, Verified 02/13/18 14:45) Rash Home Medications: Ambulatory Orders Medication Instructions Recorded Mirtazapine [Remeron] 45 mg PO QHS 10/03/15 Sertraline HCl [Zoloft] 100 mg PO QHS 10/03/15 Dicyclomine HCl [Bentyl] 10 mg PO DINNER 08/29/17 Melatonin/Pyridoxine HCl (B6) 10 mg PO QHS 08/29/17 [Melatonin 10 mg Tablet] cyanocobalamin (vit B-12) 500 mcg 1,000 mcg PO DAILY tab 12/12/17 tablet lorazepam 0.5 mg tablet 0.5 mg PO BID 12/12/17 furosemide 20 mg tablet 40 mg PO QDAY tab 01/23/18 hydralazine 25 mg tablet 25 mg PO TID #270 tab 02/02/18 Carvedilol 6.25 mg PO BID 07/26/18 Cholecalciferol (Vitamin D3) 5,000 unit PO DAILY 07/26/18 [Vitamin D3] Lorazepam [Ativan] 1 mg PO QHS 07/26/18 Sacubitril/Valsartan 49-51 mg 1 each PO BID 07/26/18 [Entresto 49 mg-51 mg Tablet] Sertraline HCl [Zoloft] 50 mg PO 1500 07/26/18 Warfarin Sodium 2 mg PO MOTUWETHFR 07/26/18 Warfarin Sodium [Coumadin] 4 mg PO SUSA 07/26/18 isosorbide mononitrate 10 mg tablet 15 mg PO DAILY 07/26/18 Past Medical History (Chronic Problems): Chronic Problems (Last Reviewed 07/26/18 @ 08:34 by Richie Rice MD) Atrial flutter (Chronic) Dilated cardiomyopathy (Chronic) Nonrheumatic mitral valve regurgitation (Chronic) Paroxysmal atrial fibrillation (Chronic) MGUS (monoclonal gammopathy of unknown significance) (Chronic) Pancytopenia (Chronic) Biventricular congestive heart failure (Chronic) Cardiac pacemaker in situ (Chronic) ICD implant January 2007; ICD extraction/upgrade to a biventricular Pacemaker 06/28, #26 Fletcher-Madison annuloplasty ring; Pacemaker generator change 05/22/17; CKD (chronic kidney disease), stage III (Chronic) Chronic systolic congestive heart failure (Chronic) CHF (congestive heart failure) (Chronic) Depression (Chronic) Esophageal reflux (Chronic) Heart valve replaced (Chronic) Mitral & Tricuspid valves replaced 05/19/09 @ [facility] HTN (hypertension) (Chronic) Primary cardiomyopathy (Chronic) 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) Chronic respiratory failure (Chronic) S/P mitral valve repair (Chronic) 05/19/09, Mitral valve repair with placement of #26 Fletcher-Madison annuloplasty ring, placement of Linn stitch & tricuspid valve repair with placement of #28 tricuspid annuloplasty ring @ [facility] S/P tricuspid valve repair (Chronic) 05/19/09 @ [facility] Status post ablation of atrial flutter (Chronic) Ventricular tachycardia (Chronic) AICD (automatic cardioverter/defibrillator) present (Chronic) ICD Implant January 2007, ICD Extraction/upgrade to a biventricular pacemaker 06/28; Pulse generator change & AV node ablation 09/23/12; Pacemaker generator change 05/22/17 Hyperlipidemia (Chronic) Pulmonary embolus (Chronic) Mural thrombus of cardiac apex (Chronic) Surgical History: cholecystectomy, hysterectomy, pacemaker implantation, tonsillectomy, - - ICD placement. Psychiatric History: Anxiety - *Family History Maternal Family History: Family History (Last Reviewed 07/26/18 @ 08:35 by Richie Rice MD) Father CAD (coronary artery disease) Myocardial infarction Mother CVA (cerebral vascular accident) CHF (congestive heart failure) Daughter Arthritis Atrial fibrillation Hyperlipidemia History Items: Heart Disease Paternal Family History: Family History (Last Reviewed 07/26/18 @ 08:35 by Richie Rice MD) Father CAD (coronary artery disease) Myocardial infarction Mother CVA (cerebral vascular accident) CHF (congestive heart failure) Daughter Arthritis Atrial fibrillation Hyperlipidemia History Items: Heart Disease Smoking Status: Never smoker Alcohol: None Drugs: None Review of Systems - Review of Systems General: Reports: Fatigue, Malaise, Weakness. Denies: Fever, Night Sweats HEENT: Denies: Vision Change Cardiovascular: Reports: Near Syncope, Syncope. Denies: Chest Discomfort, Shortness of Breath, Orthopnea, PND, Peripheral Edema, Palpitations, Lightheadedness, Dizziness Respiratory: Denies: Cough, Sputum Production, Hemoptysis Gastrointestinal: Denies: Hematemesis, Hematochezia, Melena Genitourinary: Denies: Dysuria, Hematuria Muscoloskeletal: Denies: Myalgias Skin: Denies: Rash Neurological: Reports: Dizziness, Confusion Psychiatric: Denies: Anxiety Endocrine: Denies: Unexplained Weight Loss Hematologic/ Lymphatic: Reports: Anemia Subjectve: Elderly lady in no apparent distress lying in bed Objective: Vital Signs Temp Pulse Resp BP Pulse Ox 98.4 F 72 18 98/51 L 98 07/26/18 16:00 07/26/18 16:00 07/26/18 16:00 07/26/18 16:00 07/26/18 16:00 Oxygen Flow Rate (L/min) 2 Oxygen Delivery Method Nasal Cannula Weight: 163 lb 12.855 oz Body Mass Index (BMI) 28.3 Orthostatic Vital Signs Start: 07/26/18 05:50 Freq: q24h Status: Active Protocol: Activity Type Activity Date Activity User E-Sign Co-Sign Detail Recorded Client Recorded Date Recorded By Document 07/26/18 05:45 AML [id number] 07/26/18 05:51 AML 07/26/18 05:45 Orthostatic Vitals Standing -Blood Pressure (90/60-120/80) 113/60 -Extremity Use Left Arm -Pulse Rate (60-100) 69 Sitting -Blood Pressure (90/60-120/80) 108/80 -Extremity Use Left Arm -Pulse Rate (60-100) 73 Lying -Blood Pressure (90/60-120/80) 94/50 L -Extremity Use Left Arm -Pulse Rate (60-100) 71 Intake and Output for Last 24 Hours 07/24/18 07/25/18 07/26/18 23:59 23:59 22:59 Intake Total 742 / 742 Output Total 400 / 400 Balance 342 / 342 General: Awake, Alert, Oriented x 3, Ill Appearing HEENT: PERRL, EOMI, Sclera Non Icteric, Pallor Oral: Moist Mucosa Neck: Supple, Good ROM, No Lymph Node Enlargement Chest Wall: Midline Sternotomy Incision Lungs: Clear to auscultation Cardiovascular: Regular Rhythm, Normal S1, Normal S2, No Murmurs, No Rubs, No Gallops Vascular: No Carotid Bruits, Normal Femoral Pulses, Normal Radial Pulses, Normal Dorsalis Pedal Pulse, Normal Posterior Tibial Pulses Abdomen: Bowel Sounds Present, Soft, Non Tender, No HSM, No Organomegaly Extremities: No Cyanosis, No Clubbing, No edema Musculoskeletal: No Erythema Skin: No Rashes Lymphatic: No Lymph Node Enlargement Neurological: No Focal Motor or Sensory Deficit Psych/Mental Status: Appropriate 07/25/18 23:20: WBC 3.8 L, RBC 2.39 L, Hgb 8.0 L, Hct 26.8 L, MCV 112.1 H, MCH 33.5 H, MCHC 29.9 L, RDW 14.0, RDW Differential 55.0 H, Plt Count 134 L, MPV 9.8, Immature Gran % (Auto) 0.300, Neut % (Auto) 66.7, Lymph % (Auto) 13.6 L, [place] % (Auto) 11.2 H, Eos % (Auto) 7.4 H, Baso % (Auto) 0.8, Absolute Neuts (auto) 2.5, Total Counted Not Reportable 07/25/18 23:20: PT 20.2 H, INR 1.7 07/25/18 23:20: Sodium 143, Potassium 4.3, Chloride 112 H, Carbon Dioxide 27.0, Anion Gap 4 L, BUN 41 H, Creatinine 1.89 H, Est GFR (MDRD) Af Amer 33 L, Est GFR (MDRD) Non-Af 27 L, BUN/Creatinine Ratio 21.7 H, Glucose 135 H, Calcium 8.1 L, Total Bilirubin 0.40, Troponin I < 0.015 07/25/18 23:20: B-Natriuretic Peptide 2470.4 H 07/26/18 00:55: Urine Color Yellow, Urine Clarity Cloudy, Urine pH 6.0, Ur Specific [place] 1.015, Urine Protein 30 H, Urine Glucose (UA) Normal, Urine Ketones Negative, Urine Occult Blood Negative, Urine Nitrite Positive H, Urine Bilirubin Negative, Urine Urobilinogen Normal, Ur Leukocyte Esterase 500 H, Urine RBC 0 SEEN, Urine WBC 10-25 SEEN 07/26/18 07:18: WBC 2.6 L, RBC 2.27 L, Hgb 7.5 L, Hct 25.2 L, MCV 111.0 H, MCH 33.0 H, MCHC 29.8 L, RDW 14.0, RDW Differential 54.0 H, Plt Count 106 L, MPV 10.0, Immature Gran % (Auto) 0.000, Neut % (Auto) 78.1 H, Lymph % (Auto) 9.6 L, [place] % (Auto) 6.9, Eos % (Auto) 5.0, Baso % (Auto) 0.4, Absolute Neuts (auto) 2.0, Total Counted Not Reportable 07/26/18 07:18: Sodium 144, Potassium 4.1, Chloride 115 H, Carbon Dioxide 23.0, Anion Gap 6, BUN 42 H, Creatinine 1.76 H, Est GFR (MDRD) Af Amer 36 L, Est GFR (MDRD) Non-Af 30 L, BUN/Creatinine Ratio 23.9 H, Glucose 93, Calcium 7.8 L Rhythm: EKG: Ventricular paced rhythm Assessment/Plan 1. Syncope The etiology of the syncopal episode is not entirely clear it could be possibly secondary to hypotension with concomitant anemia. She has been transfused with 1 unit of packed red blood cells. I would recommend that her ICD be interrogated in the morning to make sure that there have been no discharges. Her medications would be adjusted as appropriate. 2. Congestive heart failure-chronic systolic She does have a history of chronic systolic heart failure and she will be continued on her current medication with her Entresto as well as her beta-annia. Her diuretics would also be continued. Would obtain a more recent echocardiogram to reassess her left ventricular function. 3. Status post ICD implantation He continues to follow-up in our office and we will evaluate her ICD to make sure that they have been no ICD discharges. 4. Dilated nonischemic cardiomyopathy She has a history of nonischemic cardiomyopathy and is on appropriate medications. This would be balanced together with her blood pressure to make sure that no significant hypotensive events are noted. I do not think that there is a role for both isosorbide hydralazine as well as Entresto. I will suggest discontinuing the earlier combination. This may also be contributing to some orthostatic changes. 5. Paroxysmal atrial fibrillation She does have evidence of paroxysmal atrial fibrillation. It appears that she is in A. fib at this particular time anticoagulated. Her INR however is subtherapeutic and will be adjusted as appropriate. With her current anemia we may hold off on anticoagulation. Rate limitation will be continue with the beta-annia. 6. Valvular heart disease He does have a history of mitral valve disease as well as tricuspid valve repair. Recommend repeating her echocardiogram to reassess the above if it has not been done within the last 6 months. 7. Anemia Appears to have evidence of blood loss anemia. Etiology of the above is likely multifactorial. Continue supportive management to maintain a decent hemoglobin. Thank you for allowing me to participate in the care of your patient. Please don't hesitate to call if any issues arise
--- NOTE | 2018-07-26 17:10 | CON.PCM_ITS ---
Reason for Consult Date of Consultation: 07/26/18 Reason for Consultation: Syncopal episode History of Present Illness: The patient is a 78 year old F who presents to the emergency room with a syncopal episode. She says that she had been in his stable state of health and then she is not quite sure what happened but she was getting up from the bed and the next thing they knew she had a syncopal episode. There was no prior chest pain or paroxysmal nocturnal dyspnea or pedal edema she does not think that her defibrillator fired. She has a history of nonischemic cardiomyopathy, chronic systolic congestive heart failure [place] Association class IV, valvular heart disease status post mitral valve repair with #26 [place] angioplasty ring and tricuspid valve repair with a #28 tricuspid ring, atrial fibrillation/flutter post AV node ablation with Bi-V ICD placement, left atrial appendage ligation, PFO, hypertension, hyperlipidemia, and previous syncope. At her appointment last month she was started on Entresto. Unfortunately right after her office visit she was admitted to [facility] for acute on chronic systolic congestive heart failure. She did start Entresto of following her hospital stay. She believes that she has been feeling better since starting the Entresto She feels that she has a little bit more energy and is not as fatigued. She does not have any chest discomfort. She has not had any issues with positional dizziness. She does not have any lower extremity edema. She does not have any palpitations that she is aware of. It does not appear that this episode was immediately after taking 1 of her Entresto pills. Past Medical History Allergies/Adverse Reactions: Allergies levothyroxine sodium [From Synthroid] Allergy (Severe, Verified 02/13/18 14:45) Pt states it caused renal failure. thyroid, pork [From [place] Thyroid] Allergy (Severe, Verified 02/13/18 14:45) Unknown Pt states it caused renal failure latex Allergy (Intermediate, Verified 02/13/18 14:45) Rash Home Medications: Ambulatory Orders Medication Instructions Recorded Mirtazapine [Remeron] 45 mg PO QHS 10/03/15 Sertraline HCl [Zoloft] 100 mg PO QHS 10/03/15 Dicyclomine HCl [Bentyl] 10 mg PO DINNER 08/29/17 Melatonin/Pyridoxine HCl (B6) 10 mg PO QHS 08/29/17 [Melatonin 10 mg Tablet] cyanocobalamin (vit B-12) 500 mcg 1,000 mcg PO DAILY tab 12/12/17 tablet lorazepam 0.5 mg tablet 0.5 mg PO BID 12/12/17 furosemide 20 mg tablet 40 mg PO QDAY tab 01/23/18 hydralazine 25 mg tablet 25 mg PO TID #270 tab 02/02/18 Carvedilol 6.25 mg PO BID 07/26/18 Cholecalciferol (Vitamin D3) 5,000 unit PO DAILY 07/26/18 [Vitamin D3] Lorazepam [Ativan] 1 mg PO QHS 07/26/18 Sacubitril/Valsartan 49-51 mg 1 each PO BID 07/26/18 [Entresto 49 mg-51 mg Tablet] Sertraline HCl [Zoloft] 50 mg PO 1500 07/26/18 Warfarin Sodium 2 mg PO MOTUWETHFR 07/26/18 Warfarin Sodium [Coumadin] 4 mg PO SUSA 07/26/18 isosorbide mononitrate 10 mg tablet 15 mg PO DAILY 07/26/18 Past Medical History (Chronic Problems): Chronic Problems (Last Reviewed 07/26/18 @ 08:34 by Richie Rice MD) Atrial flutter (Chronic) Dilated cardiomyopathy (Chronic) Nonrheumatic mitral valve regurgitation (Chronic) Paroxysmal atrial fibrillation (Chronic) MGUS (monoclonal gammopathy of unknown significance) (Chronic) Pancytopenia (Chronic) Biventricular congestive heart failure (Chronic) Cardiac pacemaker in situ (Chronic) ICD implant January 2007; ICD extraction/upgrade to a biventricular Pacemaker 06/28, #26 Fletcher-Madison annuloplasty ring; Pacemaker generator change 05/22/17; CKD (chronic kidney disease), stage III (Chronic) Chronic systolic congestive heart failure (Chronic) CHF (congestive heart failure) (Chronic) Depression (Chronic) Esophageal reflux (Chronic) Heart valve replaced (Chronic) Mitral & Tricuspid valves replaced 05/19/09 @ [facility] HTN (hypertension) (Chronic) Primary cardiomyopathy (Chronic) 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) Chronic respiratory failure (Chronic) S/P mitral valve repair (Chronic) 05/19/09, Mitral valve repair with placement of #26 Fletcher-Madison annulop lasty ring, placement of Linn stitch & tricuspid valve repair with placement of #28 tricuspid annuloplasty ring @ [facility] S/P tricuspid valve repair (Chronic) 05/19/09 @ [facility] Status post ablation of atrial flutter (Chronic) Ventricular tachycardia (Chronic) AICD (automatic cardioverter/defibrillator) present (Chronic) ICD Implant January 2007, ICD Extraction/upgrade to a biventricular pacemaker 06/28; Pulse generator change & AV node ablation 09/23/12; Pacemaker generator change 05/22/17 Hyperlipidemia (Chronic) Pulmonary embolus (Chronic) Mural thrombus of cardiac apex (Chronic) Surgical History: cholecystectomy, hysterectomy, pacemaker implantation, tonsillectomy, - - ICD placement. Psychiatric History: Anxiety - *Family History Maternal Family History: Family History (Last Reviewed 07/26/18 @ 08:35 by Richie Rice MD) Father CAD (coronary artery disease) Myocardial infarction Mother CVA (cerebral vascular accident) CHF (congestive heart failure) Daughter Arthritis Atrial fibrillation Hyperlipidemia History Items: Heart Disease Paternal Family History: Family History (Last Reviewed 07/26/18 @ 08:35 by Richie Rice MD) Father CAD (coronary artery disease) Myocardial infarction Mother CVA (cerebral vascular accident) CHF (congestive heart failure) Daughter Arthritis Atrial fibrillation Hyperlipidemia History Items: Heart Disease Smoking Status: Never smoker Alcohol: None Drugs: None Review of Systems - Review of Systems General: Reports: Fatigue, Malaise, Weakness. Denies: Fever, Night Sweats HEENT: Denies: Vision Change Cardiovascular: Reports: Near Syncope, Syncope. Denies: Chest Discomfort, Shortness of Breath, Orthopnea, PND, Peripheral Edema, Palpitations, Lightheadedness, Dizziness Respiratory: Denies: Cough, Sputum Production, Hemoptysis Gastrointestinal: Denies: Hematemesis, Hematochezia, Melena Genitourinary: Denies: Dysuria, Hematuria Muscoloskeletal: Denies: Myalgias Skin: Denies: Rash Neurological: Reports: Dizziness, Confusion Psychiatric: Denies: Anxiety Endocrine: Denies: Unexplained Weight Loss Hematologic/ Lymphatic: Reports: Anemia Subjectve: Elderly lady in no apparent distress lying in bed Objective: Vital Signs Temp Pulse Resp BP Pulse Ox 98.4 F 72 18 98/51 L 98 07/26/18 16:00 07/26/18 16:00 07/26/18 16:00 07/26/18 16:00 07/26/18 16:00 Oxygen Flow Rate (L/min) 2 Oxygen Delivery Method Nasal Cannula Weight: 163 lb 12.855 oz Body Mass Index (BMI) 28.3 Orthostatic Vital Signs Start: 07/26/18 05:50 Freq: q24h Status: Active Protocol: Activity Type Activity Date Activity User E-Sign Co-Sign Detail Recorded Client Recorded Date Recorded By Document 07/26/18 05:45 AML [id number] 07/26/18 05:51 AML 07/26/18 05:45 Orthostatic Vitals Standing -Blood Pressure (90/60-120/80) 113/60 -Extremity Use Left Arm -Pulse Rate (60-100) 69 Sitting -Blood Pressure (90/60-120/80) 108/80 -Extremity Use Left Arm -Pulse Rate (60-100) 73 Lying -Blood Pressure (90/60-120/80) 94/50 L -Extremity Use Left Arm -Pulse Rate (60-100) 71 Intake and Output for Last 24 Hours 07/24/18 07/25/18 07/26/18 23:59 23:59 22:59 Intake Total 742 / 742 Output Total 400 / 400 Balance 342 / 342 General: Awake, Alert, Oriented x 3, Ill Appearing HEENT: PERRL, EOMI, Sclera Non Icteric, Pallor Oral: Moist Mucosa Neck: Supple, Good ROM, No Lymph Node Enlargement Chest Wall: Midline Sternotomy Incision Lungs: Clear to auscultation Cardiovascular: Regular Rhythm, Normal S1, Normal S2, No Murmurs, No Rubs, No Gallops Vascular: No Carotid Bruits, Normal Femoral Pulses, Normal Radial Pulses, Normal Dorsalis Pedal Pulse, Normal Posterior Tibial Pulses Abdomen: Bowel Sounds Present, Soft, Non Tender, No HSM, No Organomegaly Extremities: No Cyanosis, No Clubbing, No edema Musculoskeletal: No Erythema Skin: No Rashes Lymphatic: No Lymph Node Enlargement Neurological: No Focal Motor or Sensory Deficit Psych/Mental Status: Appropriate 07/25/18 23:20: WBC 3.8 L, RBC 2.39 L, Hgb 8.0 L, Hct 26.8 L, MCV 112.1 H, MCH 33.5 H, MCHC 29.9 L, RDW 14.0, RDW Differential 55.0 H, Plt Count 134 L, MPV 9.8, Immature Gran % (Auto) 0.300, Neut % (Auto) 66.7, Lymph % (Auto) 13.6 L, [place] % (Auto) 11.2 H, Eos % (Auto) 7.4 H, Baso % (Auto) 0.8, Absolute Neuts (auto) 2.5, Total Counted Not Reportable 07/25/18 23:20: PT 20.2 H, INR 1.7 07/25/18 23:20: Sodium 143, Potassium 4.3, Chloride 112 H, Carbon Dioxide 27.0, Anion Gap 4 L, BUN 41 H, Creatinine 1.89 H, Est GFR (MDRD) Af Amer 33 L, Est GFR (MDRD) Non-Af 27 L, BUN/Creatinine Ratio 21.7 H, Glucose 135 H, Calcium 8.1 L, Total Bilirubin 0.40, Troponin I < 0.015 07/25/18 23:20: B-Natriuretic Peptide 2470.4 H 07/26/18 00:55: Urine Color Yellow, Urine Clarity Cloudy, Urine pH 6.0, Ur Specific [place] 1.015, Urine Protein 30 H, Urine Glucose (UA) Normal, Urine Ketones Negative, Urine Occult Blood Negative, Urine Nitrite Positive H, Urine Bilirubin Negative, Urine Urobilinogen Normal, Ur Leukocyte Esterase 500 H, Urine RBC 0 SEEN, Urine WBC 10-25 SEEN 07/26/18 07:18: WBC 2.6 L, RBC 2.27 L, Hgb 7.5 L, Hct 25.2 L, MCV 111.0 H, MCH 33.0 H, MCHC 29.8 L, RDW 14.0, RDW Differential 54.0 H, Plt Count 106 L, MPV 10.0, Immature Gran % (Auto) 0.000, Neut % (Auto) 78.1 H, Lymph % (Auto) 9.6 L, [place] % (Auto) 6.9, Eos % (Auto) 5.0, Baso % (Auto) 0.4, Absolute Neuts (auto) 2.0, Total Counted Not Reportable 07/26/18 07:18: Sodium 144, Potassium 4.1, Chloride 115 H, Carbon Dioxide 23.0, Anion Gap 6, BUN 42 H, Creatinine 1.76 H, Est GFR (MDRD) Af Amer 36 L, Est GFR (MDRD) Non-Af 30 L, BUN/Creatinine Ratio 23.9 H, Glucose 93, Calcium 7.8 L Rhythm: EKG: Ventricular paced rhythm Assessment/Plan 1. Syncope * The etiology of the syncopal episode is not entirely clear it could be possibly secondary to hypotension with concomitant anemia. She has been transfused with 1 unit of packed red blood cells. I would recommend that her ICD be interrogated in the morning to make sure that there have been no discharges. Her medications would be adjusted as appropriate. 2. Congestive heart failure-chronic systolic * She does have a history of chronic systolic heart failure and she will be continued on her current medication with her Entresto as well as her beta- annia. Her diuretics would also be continued. Would obtain a more recent echocardiogram to reassess her left ventricular function. * 3. Status post ICD implantation * He continues to follow-up in our office and we will evaluate her ICD to make sure that they have been no ICD discharges. * 4. Dilated nonischemic cardiomyopathy * She has a history of nonischemic cardiomyopathy and is on appropriate medications. This would be balanced together with her blood pressure to make sure that no significant hypotensive events are noted. * I do not think that there is a role for both isosorbide hydralazine as well as Entresto. I will suggest discontinuing the earlier combination. This may also be contributing to some orthostatic changes. 5. Paroxysmal atrial fibrillation * She does have evidence of paroxysmal atrial fibrillation. It appears that she is in A. fib at this particular time anticoagulated. Her INR however is [place] btherapeutic and will be adjusted as appropriate. With her current anemia we may hold off on anticoagulation. * Rate limitation will be continue with the beta-annia. * 6. Valvular heart disease * He does have a history of mitral valve disease as well as tricuspid valve repair. * Recommend repeating her echocardiogram to reassess the above if it has not been done within the last 6 months. * 7. Anemia * Appears to have evidence of blood loss anemia. * Etiology of the above is likely multifactorial. * Continue supportive management to maintain a decent hemoglobin. * * Thank you for allowing me to participate in the care of your patient. Please don't hesitate to call if any issues arise
[2018-07-26] MEDS: Dicyclomine 10 MG Capsule PO (18:12)
--- NOTE | 2018-07-26 18:18 | NURSING ---
1745- this RN assuming care at this time.
[2018-07-26] MEDS: Sertraline 100 MG Tablet PO (21:06)
[2018-07-26] MEDS: Mirtazapine 15 MG Tablet 45 MG PO (21:06)
[2018-07-26] MEDS: LORazepam 1 MG Tablet PO (21:07)
[2018-07-26] MEDS: MELATONIN 10 MG TABLET PO (22:26)
[2018-07-27] VITALS (16 sets, daily range): BP systolic 94–145; BP diastolic 41–112; PULSE 63–88; RESP 15–20; TEMP 36.4–36.7; O2SAT 95–100
[2018-07-27 05:48] LABS: Hematocrit 29.3 % (37-47); Mean Corp Hgb Conc 30.7 g/gl (32-36); Mean Corpuscular Hgb 33.2 pg (27.0-32.0); Mean Corpuscular Volume 108.1 fL (81-99); Mean Platelet Vol. 10.3 fl (6.2-12.0); Platelet Count 110 K/mm3 (150-450); RBC Distribution Width CV 15.4 % (11.6-14.6); RBC Distribution Width SD 59.6 fl (35.1-43.9); Red Blood Count 2.71 M/mm3 (4.2-5.4)
[2018-07-27 05:53] LABS: Scan Indicated on CBC? Y/N NO
[2018-07-27 06:15] LABS: Anion Gap 7 (5-15); BUN 41 mg/dL (7-18); BUN/Creat Ratio 23.6 RATIO (10-20); Calcium,Total 7.9 mg/dL (8.5-10.1); Chloride 112 mmol/L (98-107); Creatinine, Serum 1.74 mg/dL (0.55-1.02); EST Glomerular Filtration Rate 30 mL/min (>60); Est Glom Filt Rate - Afr Amer 37 mL/min (>60); Estimated Creatinine Clearance 23.38 ml/min; Glucose 93 mg/dL (74-106); Potassium 4.3 mmol/L (3.5-5.1); Sodium Level 144 mmol/L (136-145)
[2018-07-27 06:34] LABS: International Normalized Ratio 2.1; Prothrombin Time (Protime)PT. 23.7 SECONDS (11.7-14.9)
[2018-07-27] MEDS: LORazepam 0.5 MG Tablet PO ×2 (08:40→16:42)
[2018-07-27] MEDS: 0.9% NaCl Peripheral Flush Adult/Peds IV ×2 (08:41→16:42)
[2018-07-27] MEDS: Carvedilol 6.25 MG Tablet PO ×2 (08:41→22:05)
[2018-07-27] MEDS: SACUBITRIL/VALSARTAN 49-51 MG TABLET 1 EACH PO ×2 (08:41→22:05)
[2018-07-27] MEDS: Furosemide 40 MG/4 ML Vial IV ×2 (08:41→16:42)
[2018-07-27] MEDS: Cyanocobalamin 500 MCG Tablet 1000 MCG PO (08:41)
--- NOTE | 2018-07-27 11:11 | CASEMGMT ---
RN CM Assessment. Intro role of CM to patient. Pt presented to ER with transient LOC, fall. Hx of cardiomyopathy, valvular disease and pacemaker. PCP: Dr. Muse Pharmacy: [facility] Erica Prescription coverage: yes Living arrangements: one story home with ramp into garage. LNOK: Son- lives with patient Transportation: son drives pt. DME: Walker, Scooter, Cane and Oxygen through [facility]. Pt states she is switching to [facility] in [place]. Has concentrator, portable tanks. Home Health: pt has [facility] outreach for weekly INR checks. No home health nurses. DC PLAN: Home on discharge with family support.
[2018-07-27 12:07] LABS: Magnesium 2.3 mg/dL (1.6-2.6)
--- NOTE | 2018-07-27 16:03 | PN_ITS ---
Patient Problems: Active and Suspected Problems (Last Reviewed 07/26/18 @ 08:34 by Richie Rice MD) Syncope and collapse (Acute) Subjective: Patient is a 78-year-old lady with multiple comorbidities admitted with progressive generalized weakness fall and syncopal episode. An assessment of acute on chronic diastolic congestive heart failure made admitted to monitored bed for further management. Patient was also found to have pyuria urine cultures were obtained on admission Patient seen still complains of feeling weak did discuss with patient about possibility of being discharged to jail facility however she is not interested at this point. Cultures obtained on admission so far positive for gram-negative rods final identification and sensitivities pending Objective: GENERAL: cooperative frail looking HEENT: Atraumatic; moist oral mucosa EYES; Anicteric, Normal Conjunctiva NECK; supple, normal thyroid, RESPIRATORY: Diminished to auscultation bilaterally, CARDIOVASCULAR: Regular S1 S2, GI: soft, non-tender, normoactive bowel sounds, : No Renal angle tenderness; EXTREMITIES: edema, no clubbing, no cyanosis. MUSCULOSKELETAL: No Joint Tenderness; NEURO: Awake; no lateralizing signs. SKIN: No Rash PSYCH; Normal affect Vitals/I&O's: Vital Signs Temp Pulse Resp BP Pulse Ox 97.6 F L 67 20 H 145/112 H 100 07/27/18 13:00 07/27/18 13:00 07/27/18 13:00 07/27/18 13:00 07/27/18 13:00 Oxygen Flow Rate (L/min) 3 Oxygen Delivery Method Nasal Cannula Weight: 72.8 kg Body Mass Index (BMI) 28.3 Orthostatic Vital Signs Start: 07/26/18 05:50 Freq: q24h Status: Active Protocol: Activity Type Activity Date Activity User E-Sign Co-Sign Detail Recorded Client Recorded Date Recorded By Document 07/27/18 04:50 [facility] [id number] 07/27/18 04:56 LSS 07/27/18 04:50 Orthostatic Vitals Standing -Blood Pressure (90/60-120/80) 113/56 L -Extremity Use Left Arm -Pulse Rate (60-100) 72 Sitting -Blood Pressure (90/60-120/80) 117/53 L -Extremity Use Left Arm -Pulse Rate (60-100) 70 Lying -Blood Pressure (90/60-120/80) 111/56 L -Extremity Use Left Arm -Pulse Rate (60-100) 70 Intake and Output for Last 24 Hours 07/26/18 07/26/18 07/27/18 00:59 23:59 23:59 Intake Total 190 / 190 Output Total 200 / 200 Balance -10 / -10 Microbiology Past 72 Hours 07/26/18 00:55 Urine, Clean Catch Urine Culture - Preliminary GNR lactose teaching associate 07/26/18 18:55 Stool Stool Occult Blood (HADLEY) - Final Laboratory Results 07/26/18 10:00: Crossmatch See Detail 07/27/18 05:26: PT 23.7 H, INR 2.1 07/27/18 05:26: WBC 3.0 L, RBC 2.71 L, Hgb 9.0 L, Hct 29.3 L, MCV 108.1 H, MCH 33.2 H, MCHC 30.7 L, RDW 15.4 H, RDW Differential 59.6 H, Plt Count 110 L, MPV 10.3 07/27/18 05:26: Sodium 144, Potassium 4.3, Chloride 112 H, Carbon Dioxide 25.0, Anion Gap 7, BUN 41 H, Creatinine 1.74 H, Estim Creat Clear Calc 23.38, Est GFR (MDRD) Af Amer 37 L, Est GFR (MDRD) Non-Af 30 L, BUN/Creatinine Ratio 23.6 H, Glucose 93, Calcium 7.9 L 07/27/18 05:26: Magnesium 2.3 Current Medications Acetaminophen (Tylenol) 650 mg PO Q6H PRN PRN PRN Reason: Mild Pain (1-3)/Temp > 100.7 F Carvedilol (Coreg) 6.25 mg PO BID [facility] Last Admin: 07/27/18 08:41 Dose: 6.25 mg Cyanocobalamin (Vitamin B12) 1,000 mcg PO DAILY [facility] Last Admin: 07/27/18 08:41 Dose: 1,000 mcg Dicyclomine HCl (Bentyl) 10 mg PO DINNER [facility] Last Admin: 07/26/18 18:12 Dose: 10 mg Furosemide (Lasix) 40 mg IV BIDLX [facility] Last Admin: 07/27/18 08:41 Dose: 40 mg Ceftriaxone Sodium (Rocephin) 1 gm in 50 mls @ 100 mls/hr IV Q24@2200 [facility] Last Admin: 07/26/18 21:03 Dose: 100 mls/hr Lorazepam (Ativan) 0.5 mg PO BID@0800,1700 [facility] Last Admin: 07/27/18 08:40 Dose: 0.5 mg Lorazepam (Ativan) 1 mg PO QHS [facility] Last Admin: 07/26/18 21:07 Dose: 1 mg Magnesium Hydroxide (Milk Of Magnesia) 30 ml PO DAILY PRN PRN Reason: Constipation Melatonin (Melatonin) 10 mg PO QHS [facility] Last Admin: 07/26/18 22:26 Dose: 10 mg Mirtazapine (Remeron) 45 mg PO QHS [facility] Last Admin: 07/26/18 21:06 Dose: 45 mg Ondansetron HCl (Zofran) 4 mg IV Q8H PRN PRN PRN Reason: Nausea Sertraline HCl (Zoloft) 50 mg PO 1500 [facility] Last Admin: 07/26/18 15:57 Dose: 50 mg Sertraline HCl (Zoloft) 100 mg PO QHS [facility] Last Admin: 07/26/18 21:06 Dose: 100 mg Sodium Chloride () 5 - 30 ml IV UD PRN PRN Reason: SALINE FLUSH Last Admin: 07/27/18 08:41 Dose: 10 ml Medical Necessity - Tobacco Use Smoking Status: Never smoker Assessment/Plan All Active Problems (Last Reviewed 07/26/18 @ 08:34 by Richie Rice MD) Syncope and collapse (Acute) Left atrial thrombus (Acute) Patient is a 78-year-old lady with multiple comorbidities admitted with progressive generalized weakness fall and syncopal episode. An assessment of acute on chronic diastolic congestive heart failure made admitted to monitored bed for further management. Patient was also found to have pyuria urine cultures were obtained on admission 1. Syncopal episode felt to be related to patient's anemia hemoglobin did drop from 9-7.5 received 1 unit PRBC blood transfusion on 06/25/2018. Patient was seen by cardiology in consultation recommendation was made for patient's AICD to be interrogated 2. Acute on chronic systolic and diastolic congestive heart failure patient is on Lasix in addition to hydralazine and Imdur as well as Coreg 3. Anemia felt to be related to anemia of chronic disorder no evidence of acute bleeding found with patient deemed to be symptomatic patient was transfused 1 unit PRBC 4. Acute cystitis patient is on Rocephin final identification and sensitivities pending 5. History of dilated nonischemic cardiomyopathy patient has underlying AICD 6. Chronic pancytopenia 7. Monoclonal gammopathy 8. Dyslipidemia 9. Paroxysmal atrial fibrillation rate controlled also on systemic anticoagulation with Coumadin INR is therapeutic 10. Valvular heart disease with history of tricuspid valve repair as well as mitral valve disease 2D echo ordered for reassessment 11. DVT prophylaxis patient is on Coumadin with a therapeutic INR Code Visit Inpatient E&M: 23624 [facility] Hosp L3
[2018-07-27] MEDS: Sertraline 50 MG Tablet PO (16:42)
[2018-07-27] MEDS: Dicyclomine 10 MG Capsule PO (16:42)
--- NOTE | 2018-07-27 19:38 | PN.CARD_ITS ---
Subjectve: The patient denies ongoing chest discomfort or worsening shortness of breath/dyspnea at this time. She has had no ongoing lower extremity peripheral pitting edema. She states she is tired and fatigued. She knows she is getting closer to the. However, she states she wants to remain at home with her family and does not want to have to be placed in an extended care facility. Objective: Vital Signs Temp Pulse Resp BP Pulse Ox 98.0 F 72 20 H 113/54 L 99 07/27/18 16:40 07/27/18 16:40 07/27/18 16:40 07/27/18 16:40 07/27/18 16:40 Oxygen Flow Rate (L/min) 2 Oxygen Delivery Method Nasal Cannula Weight: 160 lb 7.944 oz Body Mass Index (BMI) 28.3 Orthostatic Vital Signs Start: 07/26/18 05:50 Freq: q24h Status: Active Protocol: Activity Type Activity Date Activity User E-Sign Co-Sign Detail Recorded Client Recorded Date Recorded By Document 07/27/18 04:50 [facility] [id number] 07/27/18 04:56 LSS 07/27/18 04:50 Orthostatic Vitals Standing -Blood Pressure (90/60-120/80 mm Hg) 113/56 L -Extremity Use Left Arm -Pulse Rate (60-100 beats/min) 72 Sitting -Blood Pressure (90/60-120/80 mm Hg) 117/53 L -Extremity Use Left Arm -Pulse Rate (60-100 beats/min) 70 Lying -Blood Pressure (90/60-120/80 mm Hg) 111/56 L -Extremity Use Left Arm -Pulse Rate (60-100 beats/min) 70 Intake and Output for Last 24 Hours 07/26/18 07/26/18 07/27/18 00:59 23:59 23:59 Intake Total 410 / 410 Output Total 200 / 200 Balance 210 / 210 General: Awake, Alert, Oriented x 3, Cooperative, No Acute Distress HEENT: Atraumatic, Normocephalic, PERRL, EOMI Oral: Moist Mucosa Neck: Supple, Good ROM, No JVD Lungs: Rales - Sky Bases - mild Cardiovascular: Regular Rhythm, Normal S1, Normal S2 Murmur Murmur: Grade 2/6, Mid Systolic, LLSB Abdomen: Bowel Sounds Present, Soft, Non Tender Extremities: No edema Psych/Mental Status: Appropriate 07/27/18 05:26: PT 23.7 H, INR 2.1 07/27/18 05:26: WBC 3.0 L, RBC 2.71 L, Hgb 9.0 L, Hct 29.3 L, MCV 108.1 H, MCH 33.2 H, MCHC 30.7 L, RDW 15.4 H, RDW Differential 59.6 H, Plt Count 110 L, MPV 10.3 07/27/18 05:26: Sodium 144, Potassium 4.3, Chloride 112 H, Carbon Dioxide 25.0, Anion Gap 7, BUN 41 H, Creatinine 1.74 H, Est GFR (MDRD) Af Amer 37 L, Est GFR (MDRD) Non-Af 30 L, BUN/Creatinine Ratio 23.6 H, Glucose 93, Calcium 7.9 L 07/27/18 05:26: Magnesium 2.3 ECHO: The echocardiographic report suggests the overall LV systolic function preserved at this time with an LVEF 55%, which, if accurate, would indicate an improvement compared to previous echocardiographic studies. The right ventricle appears to be dilated and on review of the echocardiographic images appears to be dysfunctional. Please see official report ICD evaluation: No ventricular dysrhythmias reported. Underlying atrial fibrillation reported. Medical Necessity - Tobacco Use Smoking Status: Never smoker Assessment/Plan 1. Syncope At the present time it does not appear the patient has a definitive cardiovascular etiology with respect to cardiac dysrhythmias, etc. leading to a syncopal event. This may be related to concerns of the patient some volume loss secondary to anemia and/or superimposed on infectious disease related issue all compromise in her hemodynamics leading to her syncopal event. From a cardiac standpoint it does not appear she requires additional cardiac diagnostic studies or therapeutic intervention at this time with respect to additional noninvasive or invasive studies revolving around concerns of syncope. She should continue further noncardiac evaluation with PRBC transfusion to increase her hemoglobin levels and treatment of any underlying infectious disease related issues. 2. Chronic systolic CHF The patient has a history of chronic systolic CHF. She has been treated medically as best as tolerated in the past. She does have a biventricular ICD in place. At the present time there is some concern based on her pulmonary status as well as her she has any element of volume overload. She is continuing diuretic therapy. Over time her diuretics will need to be returned to oral therapy. Also hopefully she can resume other agents that may have been beneficial to her underlying CHF such as her preload and afterload reducing agents. 2. Non-CAD related cardiomyopathy The patient has a non-CAD related cardiomyopathy. Again she has been treated medically. She is also undergone EP evaluation with AV node ablation and biventricular ICD therapy. Based upon her echocardiographic port her overall LV systolic function appears to have improved. Thus hopefully she can continue medical therapy with her preload and afterload reducing therapy as well as her biventricular ICD. However, there is concern of her right ventricle being dilated and appearing dysfunctional. This may lead to concerns as well. Again she would be treated medically as best as possible for this issue. 3. 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 She has been assessed by history, exam, and echocardiogram. Her echocardiographic findings are as noted reported. At the present time she does need to continue AHA antibiotic prophylaxis. She will continue medical therapy and support. 4. Atrial flutter status post AV node ablation The patient has a history of atrial flutter. She is undergone AV node ablation and thus is dependent upon her biventricular ICD. She is also been found to have evidence of underlying atrial fibrillation. She has been on medical management. She has been on anticoagulant therapy on and off in the past. There have been concerns in the past based upon falls, areas of ecchymoses, fractures, etc. Thus again it raises a concern as to whether or not she can safely remain on anticoagulant therapy. 5. Ventricular tachycardia The patient also has a history of underlying ventricular tachycardia. Upon her ICD interrogation there was no ventricular tachycardia/fibrillation noted. Ideally she would continue her medical therapy which has included her beta- annia therapy. Her ICD is functioning appropriately. 6. Biventricular ICD/MERCHANDISE DISPLAYER therapy She has been followed for this. It has been functioning appropriately. This may be part of the explanation as to why her overall LV systolic function appears to be improved. 7. Hyperlipidemia She should continue risk factor evaluation care as deemed appropriate. 8. Hypertension Her blood pressures have been intermittently low. Her medications have been decreased with respect to her preload and afterload reducing therapy. However as her clinical course stabilizes hopefully she can resume her medications with dosage adjustment as deemed appropriate to help optimize her cardiovascular care. 9. Infectious disease She is being treated for an underlying UTI. 10. Renal insufficiency She does have a history of chronic renal insufficiency. Again this has an impact on her medications, dosages, etc. Overall the patient states that she wants to be treated medically. She wants to return home. She has 1 son living with her and another one in the near future. However she acknowledges she would like to have additional home health care. Thus it would be reasonable to have social sciences instructor discuss the patient's home situation with her and her family as to what other services may be available to help her at home as she wants to avoid going to an extended care facility. This note was generated with [employer] dictation software. It may contain incorrect words, spelling, and punctuation that were not noted in checking the note before signing.
[2018-07-27] MEDS: Sertraline 100 MG Tablet PO (22:05)
[2018-07-27] MEDS: Mirtazapine 15 MG Tablet 45 MG PO (22:05)
[2018-07-27] MEDS: MELATONIN 10 MG TABLET PO (22:05)
[2018-07-27] MEDS: Ceftriaxone 1 GM/50 ML BAG IV (22:06)
[2018-07-27] MEDS: LORazepam 1 MG Tablet PO (22:06)
[2018-07-28] VITALS (8 sets, daily range): BP systolic 106–129; BP diastolic 45–77; PULSE 69–74; RESP 17–19; TEMP 36.6–37.1; O2SAT 94–98
[2018-07-28] MEDS: Furosemide 40 MG/4 ML Vial IV (10:06)
[2018-07-28] MEDS: Cyanocobalamin 500 MCG Tablet 1000 MCG PO (10:06)
[2018-07-28] MEDS: SACUBITRIL/VALSARTAN 49-51 MG TABLET 1 EACH PO (10:06)
[2018-07-28] MEDS: Carvedilol 6.25 MG Tablet PO (10:06)
[2018-07-28] MEDS: LORazepam 0.5 MG Tablet PO (10:06)
[2018-07-28] MEDS: 0.9% NaCl Peripheral Flush Adult/Peds IV (10:07)
--- NOTE | 2018-07-28 10:45 | DS.PCM_ITS ---
Discharge Date and Diagnosis - Problem List Patient Problems: Active and Suspected Problems (Last Reviewed 07/26/18 @ 08:34 by Richie Rice MD) Syncope and collapse (Acute) Date of Admission: 07/26/18 Date of Discharge: 07/28/18 - Primary Discharge Diagnosis Active and Suspected Problems (Last Reviewed 07/26/18 @ 08:34 by Richie Rice MD) Syncope and collapse (Acute) - Secondary Discharge Diagnosis Chronic Problems (Last Reviewed 07/26/18 @ 08:34 by Richie Rice MD) Atrial flutter (Chronic) Dilated cardiomyopathy (Chronic) Nonrheumatic mitral valve regurgitation (Chronic) Paroxysmal atrial fibrillation (Chronic) MGUS (monoclonal gammopathy of unknown significance) (Chronic) Pancytopenia (Chronic) Biventricular congestive heart failure (Chronic) Cardiac pacemaker in situ (Chronic) ICD implant January 2007; ICD extraction/upgrade to a biventricular Pacemaker 06/28, #26 Fletcher-Madison annuloplasty ring; Pacemaker generator change 05/22/17; CKD (chronic kidney disease), stage III (Chronic) Chronic systolic congestive heart failure (Chronic) CHF (congestive heart failure) (Chronic) Depression (Chronic) Esophageal reflux (Chronic) Heart valve replaced (Chronic) Mitral & Tricuspid valves replaced 05/19/09 @ [facility] HTN (hypertension) (Chronic) Primary cardiomyopathy (Chronic) 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) Chronic respiratory failure (Chronic) S/P mitral valve repair (Chronic) 05/19/09, Mitral valve repair with placement of #26 Fletcher-Madison annuloplasty ring, placement of Linn stitch & tricuspid valve repair with placement of #28 tricuspid annuloplasty ring @ [facility] S/P tricuspid valve repair (Chronic) 05/19/09 @ [facility] Status post ablation of atrial flutter (Chronic) Ventricular tachycardia (Chronic) AICD (automatic cardioverter/defibrillator) present (Chronic) ICD Implant January 2007, ICD Extraction/upgrade to a biventricular pacemaker 06/28; Pulse generator change & AV node ablation 09/23/12; Pacemaker generator change 05/22/17 Hyperlipidemia (Chronic) Pulmonary embolus (Chronic) Mural thrombus of cardiac apex (Chronic) Hospital Course and Treatment Operations: None Summary of Care Provided: Patient is a 78-year-old lady with multiple comorbidities admitted with progressive generalized weakness fall and syncopal episode. An assessment of acute on chronic diastolic congestive heart failure made admitted to monitored bed for further management. Patient was also found to have pyuria urine cultures were obtained on admission 1. Syncopal episode felt to be related to patient's anemia hemoglobin did drop from 9-7.5 received 1 unit PRBC blood transfusion on 06/25/2018. Patient was seen by cardiology in consultation recommendation was made for patient's AICD to be interrogated patient AICD was interrogated with no malfunction noticed 2. Acute on chronic systolic and diastolic congestive heart failure patient was treated with Lasix. Already on Coreg as well as Entresto. Hydralazine was discontinued in view of patient's syncopal episodes 3. Anemia felt to be related to anemia of chronic disorder no evidence of acute bleeding found with patient deemed to be symptomatic patient was transfused 1 unit PRBC 4. Acute cystitis with E coli patient treated with Rocephin discharged home on ciprofloxacin based on the sensitivities 5. History of dilated nonischemic cardiomyopathy patient has underlying AICD 6. Chronic pancytopenia 7. Monoclonal gammopathy 8. Dyslipidemia 9. Paroxysmal atrial fibrillation rate controlled also on systemic antic oagulation with Coumadin INR is therapeutic 10. Valvular heart disease with history of tricuspid valve repair as well as mitral valve disease 2D echo ordered for reassessment 11. DVT prophylaxis patient is on Coumadin with a therapeutic INR Patient Problems: Active and Suspected Problems (Last Reviewed 07/26/18 @ 08:34 by Richie Rice MD) Syncope and collapse (Acute) - Physical Exam General: Alert Lungs: Diminished Cardiovascular: Regular rate, Regular Rhythm Abdomen: Non-Distended Extremities: No clubbing, No cyanosis Vital Signs Temp Pulse Resp BP Pulse Ox 98.5 F 72 19 H 106/61 95 07/28/18 09:56 07/28/18 09:56 07/28/18 09:56 07/28/18 09:56 07/28/18 09:56 Oxygen Flow Rate (L/min) 3 Oxygen Delivery Method Nasal Cannula Weight: 73.5 kg Body Mass Index (BMI) 28.3 Orthostatic Vital Signs Start: 07/26/18 05:50 Freq: q24h Status: Active Protocol: Activity Type Activity Date Activity User E-Sign Co-Sign Detail Recorded Client Recorded Date Recorded By Document 07/28/18 05:00 [facility] [id number] 07/28/18 05:56 MLS 07/28/18 05:00 Orthostatic Vitals Standing -Blood Pressure (90/60-120/80) 129/53 H -Extremity Use Left Arm -Pulse Rate (60-100) 72 Sitting -Blood Pressure (90/60-120/80) 123/56 H -Extremity Use Left Arm -Pulse Rate (60-100) 74 Lying -Blood Pressure (90/60-120/80) 110/45 L -Extremity Use Left Arm -Pulse Rate (60-100) 69 Intake and Output for Last 24 Hours 07/26/18 07/27/18 07/28/18 23:59 23:59 23:59 Intake Total 410 / 410 317.2 / 317.2 Output Total 200 / 200 Balance 210 / 210 317.2 / 317.2 Microbiology Past 72 Hours 07/26/18 00:55 Urine Culture - Final Urine, Clean Catch Escherichia coli 07/26/18 18:55 Stool Occult Blood (HADLEY) - Final Stool Laboratory Tests Past 24 Hrs 07/27/18 05:26 Magnesium 2.3 Home Medications: Medications to take at Discharge Mirtazapine [Remeron] 45 mg PO QHS 10/03/15 Sertraline HCl [Zoloft] 100 mg PO QHS 10/03/15 Dicyclomine HCl [Bentyl] 10 mg PO DINNER 08/29/17 Melatonin/Pyridoxine HCl (B6) [Melatonin 10 mg Tablet] 10 mg PO QHS 08/29/17 cyanocobalamin (vit B-12) 500 mcg tablet 1,000 mcg PO DAILY tab 12/12/17 lorazepam 0.5 mg tablet 0.5 mg PO BID 12/12/17 furosemide 20 mg tablet 40 mg PO QDAY tab 01/23/18 Carvedilol 6.25 mg PO BID 07/26/18 Cholecalciferol (Vitamin D3) [Vitamin D3] 5,000 unit PO DAILY 07/26/18 Lorazepam [Ativan] 1 mg PO QHS 07/26/18 Sacubitril/Valsartan 49-51 mg [Entresto 49 mg-51 mg Tablet] 1 each PO BID 07/26/18 Sertraline HCl [Zoloft] 50 mg PO 1500 07/26/18 Warfarin Sodium 2 mg PO MOTUWETHFR 07/26/18 Warfarin Sodium [Coumadin] 4 mg PO SUSA 07/26/18 isosorbide mononitrate 10 mg tablet 15 mg PO DAILY 07/26/18 Ciprofloxacin [Cipro] 250 mg PO BID #6 tablet 07/28/18 Following Prescrptions Were Given to Patient: Ciprofloxacin [Cipro] 250 mg PO BID #6 tablet Primary Care Physician: Landry Muse MD [Primary Care Provider] - Medical Necessity - Tobacco Use Smoking Status: Never smoker Meaningful Use Info Meaningful Use Diagnoses (Choose all that apply): CHF - CHF ROMARIO/ARB ordered at discharge?: Yes Documented LVEF (%): 55 Code Visit Inpatient E&M: 99218 Disch Hosp
--- NOTE | 2018-07-28 13:39 | PCM.DC ---
- Discharge Diagnoses Current Active Problems: Current Active and Chronic Problems (Last Reviewed 07/26/18 @ 08:34 by Richie Rice MD) Syncope and collapse (Acute) You will use the following diet at home:: Cardiac Allergies/Adverse Reactions: Allergies levothyroxine sodium [From Synthroid] Allergy (Severe, Verified 02/13/18 14:45) Pt states it caused renal failure. thyroid, pork [From [place] Thyroid] Allergy (Severe, Verified 02/13/18 14:45) Unknown Pt states it caused renal failure latex Allergy (Intermediate, Verified 02/13/18 14:45) Rash Medications to take at Discharge Mirtazapine [Remeron] 45 mg PO QHS 10/03/15 Sertraline HCl [Zoloft] 100 mg PO QHS 10/03/15 Dicyclomine HCl [Bentyl] 10 mg PO DINNER 08/29/17 Melatonin/Pyridoxine HCl (B6) [Melatonin 10 mg Tablet] 10 mg PO QHS 08/29/17 cyanocobalamin (vit B-12) 500 mcg tablet 1,000 mcg PO DAILY tab 12/12/17 lorazepam 0.5 mg tablet 0.5 mg PO BID 12/12/17 furosemide 20 mg tablet 40 mg PO QDAY tab 01/23/18 Carvedilol 6.25 mg PO BID 07/26/18 Cholecalciferol (Vitamin D3) [Vitamin D3] 5,000 unit PO DAILY 07/26/18 Lorazepam [Ativan] 1 mg PO QHS 07/26/18 Sacubitril/Valsartan 49-51 mg [Entresto 49 mg-51 mg Tablet] 1 each PO BID 07/26/18 Sertraline HCl [Zoloft] 50 mg PO 1500 07/26/18 Warfarin Sodium 2 mg PO MOTUWETHFR 07/26/18 Warfarin Sodium [Coumadin] 4 mg PO SUSA 07/26/18 isosorbide mononitrate 10 mg tablet 15 mg PO DAILY 07/26/18 Ciprofloxacin [Cipro] 250 mg PO BID #6 tablet 07/28/18 The following prescriptions were given: Ciprofloxacin [Cipro] 250 mg PO BID #6 tablet Primary Care Physician: Landry uMse MD [Primary Care Provider] - Please follow up with your Primary Care Physician in: IN 1 WEEK Test Results: Test results from this visit will be discussed in further detail at your follow-up appointment, if applicable. Please Follow Up With: Carlos Springer MD When: IN 2-4 WEEKS Proposed Discharge Date: 07/28/18
--- NOTE | 2018-07-28 14:01 | DCINST_ITS ---
- Discharge Diagnoses Current Active Problems: Current Active and Chronic Problems (Last Reviewed 07/26/18 @ 08:34 by Richie Rice MD) Syncope and collapse (Acute) You will use the following diet at home:: Cardiac Allergies/Adverse Reactions: Allergies levothyroxine sodium [From Synthroid] Allergy (Severe, Verified 02/13/18 14:45) Pt states it caused renal failure. thyroid, pork [From [place] Thyroid] Allergy (Severe, Verified 02/13/18 14:45) Unknown Pt states it caused renal failure latex Allergy (Intermediate, Verified 02/13/18 14:45) Rash Medications to take at Discharge Mirtazapine [Remeron] 45 mg PO QHS 10/03/15 Sertraline HCl [Zoloft] 100 mg PO QHS 10/03/15 Dicyclomine HCl [Bentyl] 10 mg PO DINNER 08/29/17 Melatonin/Pyridoxine HCl (B6) [Melatonin 10 mg Tablet] 10 mg PO QHS 08/29/17 cyanocobalamin (vit B-12) 500 mcg tablet 1,000 mcg PO DAILY tab 12/12/17 lorazepam 0.5 mg tablet 0.5 mg PO BID 12/12/17 furosemide 20 mg tablet 40 mg PO QDAY tab 01/23/18 Carvedilol 6.25 mg PO BID 07/26/18 Cholecalciferol (Vitamin D3) [Vitamin D3] 5,000 unit PO DAILY 07/26/18 Lorazepam [Ativan] 1 mg PO QHS 07/26/18 Sacubitril/Valsartan 49-51 mg [Entresto 49 mg-51 mg Tablet] 1 each PO BID 07/26/18 Sertraline HCl [Zoloft] 50 mg PO 1500 07/26/18 Warfarin Sodium 2 mg PO [id number] 07/26/18 Warfarin Sodium [Coumadin] 4 mg PO SUSA 07/26/18 isosorbide mononitrate 10 mg tablet 15 mg PO DAILY 07/26/18 Ciprofloxacin [Cipro] 250 mg PO BID #6 tablet 07/28/18 The following prescriptions were given: Ciprofloxacin [Cipro] 250 mg PO BID #6 tablet Primary Care Physician: Landry Muse MD [Primary Care Provider] - Please follow up with your Primary Care Physician in: IN 1 WEEK Test Results: Test results from this visit will be discussed in further detail at your follow- up appointment, if applicable. Please Follow Up With: Carlos Springer MD When: IN 2-4 WEEKS Proposed Discharge Date: 07/28/18
--- NOTE | 2018-07-29 15:02 | CASEMGMT ---
[facility] DISCHARGE FOLLOW-UP PHONE CALL LACE: 11 STRATA: 3 Discharge Date: 07-28-18 Adm dx: Syncope Call placed to patient. No answer. Message left for her to return call to [employer] SCHAFER CM, if she has any questions or concerns about her discharge instructions or medications. Phone number provided. Robert GAVIRIA RN, CM
== END 2018-07-28 15:44 | disposition home or self-care (01) | DRG 808 ==
LOC: ED 07-26 00:37 → PCU 07-26 01:23
PROVIDERS: Admitting Provider Hospitalist; Emergency Provider Emergency Medicine; Family Provider Family Medicine; PCP Family Medicine; Visit Provider Internal Medicine
DX: D61.818 Other pancytopenia (principal); I50.43 Acute on chronic combined systolic (congestive) and diastolic (congestive) heart failure; N30.00 Acute cystitis without hematuria; I13.0 Hypertensive heart and chronic kidney disease with heart failure and stage 1 through stage 4 chronic kidney disease, or unspecified chronic kidney disease; I42.0 Dilated cardiomyopathy; J96.10 Chronic respiratory failure, unspecified whether with hypoxia or hypercapnia; Z95.810 Presence of automatic (implantable) cardiac defibrillator; Z99.81 Dependence on supplemental oxygen; Z79.01 Long term (current) use of anticoagulants; D47.2 Monoclonal gammopathy; E78.5 Hyperlipidemia, unspecified; I48.0 Paroxysmal atrial fibrillation; B96.20 Unspecified Escherichia coli [E. coli] as the cause of diseases classified elsewhere; R55 Syncope and collapse; N18.3 Chronic kidney disease, stage 3 (moderate); D63.8 Anemia in other chronic diseases classified elsewhere
CPT/HCPCS: 36415; 70450; 71045; 80048; 80053; 81001; 82274; 83735; 83880; 84484; 85025; 85027; 85610; 86850; 86900; 86920; 86922; 87077; 87086; 87088; 87186; 93005; 93306; 97162; 97166; 97530; 99285; J7030; J7040; P9016; A4216; J1940

== ENCOUNTER → 2018-08-06 10:25 | Outpatient (CLI) | payer MEDICARE, BC, SELFPAY ==
[2018-08-06 10:25] VITALS: BMI 28.1
== END ==
PROVIDERS: Family Provider Family Medicine; PCP Family Medicine; Visit Provider Internal Medicine Cardiovascular Disease
DX: I48.1 Persistent atrial fibrillation (principal); I21.3 ST elevation (STEMI) myocardial infarction of unspecified site
CPT/HCPCS: 36416; 85610

== ENCOUNTER → 2018-08-20 09:00 | Outpatient (CLI) | payer MEDICARE, BC, SELFPAY ==
[2018-08-07 13:45] VITALS: BMI 28.1
[2018-08-20 10:56] LABS: Absolute Lymphocyte Count 0.82 X10^3/ul (0.83-4.51); Absolute Neutrophil Count 2.1 X10^3/uL (2.0-7.7); Basophil# 0.02 X10^3/uL; Basophil% 0.6 % (0-1); Eosinophil# 0.19 X10^3/uL; Eosinophils% 5.7 % (0-5); Hematocrit 32.4 % (37-47); Hemoglobin 10.1 g/dl (12.0-15.0); Lymphocyte # 0.82 X10^3/ul (4.0); Lymphocyte % 24.6 % (19-41); Mean Corp Hgb Conc 31.2 g/gl (32-36); Mean Corpuscular Hgb 32.8 pg (27.0-32.0); Mean Corpuscular Volume 105.2 fL (81-99); Mean Platelet Vol. 10.6 fl (6.2-12.0); Monocyte# 0.22 X10^3/uL; Monocyte% 6.6 % (0-10); Neutrophil # 2.08 X10^3/uL (2.7-7.7); Neutrophil % 62.5 % (47-70); Platelet Count 135 K/mm3 (150-450); RBC Distribution Width CV 13.2 % (11.6-14.6); RBC Distribution Width SD 50.2 fl (35.1-43.9); Red Blood Count 3.08 M/mm3 (4.2-5.4); White Blood Count 3.3 K/mm3 (4.4-11.0)
[2018-08-20 10:57] LABS: POSITIVE COUNT NO; POSITIVE DIFFERENTIAL NO; POSITIVE MORPHOLOGY NO
[2018-08-20 11:07] LABS: Prothrombin Time (Protime)PT. 43.9 SECONDS (11.7-14.9)
[2018-08-20 11:08] LABS: International Normalized Ratio 4.6
--- OUTSIDE RECORDS SUMMARY | 2018-10-15 09:14 | XMS RPT_ITS ---
:1940 Author Organization OHIP Support Name Relationship Address Phone R Unavailable Unavailable Unavailable LADONNA GELLER Unavailable [address] + [place] [address] R Unavailable Unavailable Unavailable LADONNA GELLER Unavailable [address] + [place] [address] R Unavailable Unavailable Unavailable LADONNA GELLER Unavailable [address] + [place] [address] R Unavailable Unavailable Unavailable LADONNA GELLER Unavailable [address] + [place] [address] R Unavailable Unavailable Unavailable LADONNA GELLER Unavailable [address] + [place] [address] R Unavailable Unavailable Unavailable LADONNA GELLER Unavailable [address] + [place] [address] R Unavailable Unavailable Unavailable LADONNA GELLER Unavailable [address] + [place] [address] R Unavailable Unavailable Unavailable LADONNA GELLER Unavailable [address] + [place] [address] R Unavailable Unavailable Unavailable LADONNA GELLER Unavailable [address] + [place] [address] R Unavailable Unavailable Unavailable LADONNA GELLER Unavailable [address] + [place] [address] R Unavailable Unavailable Unavailable LADONNA GELLER Unavailable [address] + [place] [address] R Unavailable Unavailable Unavailable LADONNA GELLER Unavailable [address] + [place] [address] R Unavailable Unavailable Unavailable LADONNA GELLER Unavailable [address] + [place] [address] R Unavailable Unavailable Unavailable LADONNA GELLER Unavailable [address] + [place] [address] R Unavailable Unavailable Unavailable LADONNA GELLER Unavailable [address] + [place] [address] R Unavailable Unavailable Unavailable LADONNA GELLER Unavailable [address] + [place] [address] R Unavailable Unavailable Unavailable LADONNA GELLER Unavailable [address] + [place] [address] R Unavailable Unavailable Unavailable LADONNA GELLER Unavailable [address] + [place] [address] R Unavailable Unavailable Unavailable LADONNA GELLER Unavailable [address] + [place] [address] R Unavailable Unavailable Unavailable LADONNA GELLER Unavailable [address] + [place] [address] R Unavailable Unavailable Unavailable LADONNA GELLER Unavailable [address] + [place] [address] R Unavailable Unavailable Unavailable LADONNA GELLER Unavailable [address] + [place] [address] R Unavailable Unavailable Unavailable LADONNA GELLER Unavailable [address] + [place] [address] R Unavailable Unavailable Unavailable LADONNA GELLER Unavailable [address] + [place] [address] R Unavailable Unavailable Unavailable LADONNA GELLER Unavailable [address] + [place] [address] R Unavailable Unavailable Unavailable LADONNA GELLER Unavailable [address] + [place] [address] R Unavailable Unavailable Unavailable LADONNA GELLER Unavailable [address] + [place] [address] R Unavailable Unavailable Unavailable LADONNA GELLER Unavailable [address] + [place] [address] R Unavailable Unavailable Unavailable LADONNA GELLER Unavailable [address] + [place] [address] R Unavailable Unavailable Unavailable YIMI, LADONNA Unavailable [address] + [place] [address] R Unavailable Unavailable Unavailable YIMI, LADONNA Unavailable [address] + [place] [address] R Unavailable Unavailable Unavailable YIMI, LADONNA Unavailable [address] + [place] [address] R Unavailable Unavailable Unavailable YIMI, LADONNA Unavailable [address] + [place] [address] R Unavailable Unavailable Unavailable YIMI, LADONNA Unavailable [address] + [place] [address] R Unavailable Unavailable Unavailable YIMI, LADONNA Unavailable [address] + [place] [address] R Unavailable Unavailable Unavailable YIMI, LADONNA Unavailable [address] + [place] [address] R Unavailable Unavailable Unavailable YIMI, LADONNA Unavailable . + [place] [address] R Unavailable Unavailable Unavailable YIMI, LADONNA Unavailable . + [place] [address] R Unavailable Unavailable Unavailable YIMI, LADONNA Unavailable . + [place] [address] R Unavailable Unavailable Unavailable YIMI, LADONNA Unavailable . + [place] [address] R Unavailable Unavailable Unavailable YIMI, LADONNA Unavailable . + [place] [address] R Unavailable Unavailable Unavailable YIMI, LADONNA Unavailable NA + [place], [place] R Unavailable Unavailable Unavailable YIMI, LADONNA Unavailable . + [place] [address] R Unavailable Unavailable Unavailable YIMI, LADONNA Unavailable . + [place] [address] R Unavailable Unavailable Unavailable YIMI, LADONNA Unavailable Unavailable + R Unavailable Unavailable Unavailable YIMI, LADONNA Unavailable NA + [place], [place] R Unavailable Unavailable Unavailable YIMI, LADONNA Unavailable NA + [place], [place] R Unavailable Unavailable Unavailable YIMI, LADONNA Unavailable NA + [place], [place] R Unavailable Unavailable Unavailable YIMI LADONNA Unavailable NA + [place], [place] R Unavailable Unavailable Unavailable YIMISTACYEN Unavailable Unavailable + R Unavailable Unavailable Unavailable YIMI, LADONNA Unavailable NA + [place], [place] R Unavailable Unavailable Unavailable YIMI, LADONNA Unavailable NA + [place], [place] R Unavailable Unavailable Unavailable YIMI, LADONNA Unavailable NA + [place], [place] R Unavailable Unavailable Unavailable YIMI, LADONNA Unavailable NA + [place], [place] R Unavailable Unavailable Unavailable YIMI LADONNA Unavailable [address] + [place] [address] R Unavailable Unavailable Unavailable YIMISTACYEN Unavailable NA + [place], [place] Care Team Providers Name Role Phone Ciara Arambula Attending Unavailable [facility] Unavailable Ralf, Nifnaour Referring Unavailable Carlos Mcallister Attending Unavailable [facility] Unavailable My Damon Attending Unavailable [facility] Referring Unavailable Angelica Kim Attending Unavailable [facility] Referring Unavailable [facility] Unavailable Carlos Mcallister Attending Unavailable [facility] Care Unavailable Carlos Mcallister Attending Unavailable [facility] Referring Unavailable Carlos Mcallister Attending Unavailable [facility] Care Unavailable Ravikarus, Ciara Attending Unavailable Ravikarus, Ninfaour Referring Unavailable [facility] Unavailable Marvinus, Ninfaour Consulting Unavailable Ravikarus, Ciara Attending Unavailable Isckarus, Mansour Referring Unavailable [facility] Unavailable Isckarus, Ciara Attending Unavailable Isckarus, Mansour Referring Unavailable [facility] Unavailable Carlos Mcallister Attending Unavailable [facility] Unavailable [facility], Michael Attending Unavailable [facility] Unavailable Carlos Mcallister Attending Unavailable [facility] Unavailable My Damon Attending Unavailable [facility], [place] Referring Unavailable [facility] Unavailable Carlos Mcallister Attending [facility] Unavailable MoodCarlos montesinos Attending Unavailable [facility] Unavailable Angelica Kim Attending Unavailable [facility] Referring Unavailable Carly Phillip Attending Unavailable Carlos Mcallister Attending Unavailable [facility] Care Unavailable Devin Gamboa Attending Unavailable [facility], [place] Referring Unavailable [facility] Unavailable [facility] Unavailable Ashelfah, Ghasem Admitting Unavailable KittoeThang Attending Unavailable Ashelfah, Ghasem Admitting Unavailable Ashelfah, Ghasem Attending [facility]available [facility] Unavailable Ashelfah, Ghasem Consulting Unavailable Ashelfah, Ghasem Admitting Unavailable KitThang fernandez Attending Unavailable [facility] Unavailable Thang Ramirez Consulting Unavailable Carlos Mcallister Attending Unavailable [facility] Care Unavailable Carly Phillip Attending Unavailable Carlos Mcallister Attending Unavailable [facility] Unavailable Devin Gamboa Attending Unavailable [facility], [place] Referring Unavailable [facility] Care Unavailable Carlos Mcallister Attending Unavailable [facility] Unavailable MoodCarlos montesinos Attending Unavailable [facility] Care Unavailable SouthwickCarly Attending Unavailable Devin Gamboa Attending Unavailable [facility] Referring Unavailable Carlos Mcallister Attending Unavailable [facility] Unavailable Carlos Mcallister Attending Unavailable [facility] Unavailable MoodCarlos montesinos Attending Unavailable [facility] Unavailable Angelica Kim Attending Unavailable [facility], [place] Referring Unavailable [facility] Unavailable MoodCarlos montesinos Attending Unavailable [facility] Unavailable Carlos Mcallister Attending Unavailable [facility] Unavailable Carlos Mcallister Attending Unavailable [facility] Unavailable Carlos Mcallister Attending Unavailable [facility] Unavailable Carlos Mcallister Attending Unavailable [facility] Unavailable Carlos Mcallister Attending Unavailable [facility] Unavailable MoodCarlos montesinos Attending Unavailable [facility] Unavailable Moodispaw, Carlos Attending Unavailable [facility] Care Unavailable Moodispaw, Carlos Attending Unavailable [facility] Care Unavailable Angelica Kim Attending Unavailable [facility], [place] Referring Unavailable [facility] Unavailable Agyepong, Richie Admitting Unavailable Stephen, Otilio Consulting Unavailable Kittoe, Thang Attending Unavailable Agyepong, Richie Admitting Unavailable Agyepong, Richie Attending Unavailable [facility] Unavailable Ashelfah, Ghasem Consulting Unavailable Agyepong, Richie Admitting Unavailable Kittoe, Thang Attending Unavailable [facility] Unavailable Stephen, [place] Consulting Unavailable Kittoe, Thang Consulting Unavailable Agyepong, Richie Admitting Unavailable Moodispaw, Carlos Attending Unavailable [facility] Care Unavailable Stephen, Otilio Consulting Unavailable Kittoe, Thang Consulting Unavailable Agyepong, Richie Admitting Unavailable Kittoe, Thang Attending Unavailable [facility] Care Unavailable Stephen, [place] Consulting Unavailable Kittoe, Thang Consulting Unavailable Moodispaw, Carlos Attending Unavailable [facility] Unavailable My Damon Attending Unavailable Stephen, Otilio Attending Unavailable Agyepong, Richie Referring Unavailable Moodispaw, Carlos Attending Unavailable [facility] Unavailable Moodispaw, Carlos Attending Unavailable [facility] Unavailable PROBLEMS PROBLEMS DATE TYPE CONDITION / CODE ATTENDING STATUS SOURCE 08/27/2018 Unknown I48.0 - Paroxysmal MoodisCarlos scott Active [facility] atrial fibrillation Community / I48.0(ICD-10) Hospital Repository 08/27/2018 Unknown Z79.01 - salvage determiner Moodispabradley, Carlos Active [facility] (current) use of Community anticoagulants / Hospital Z79.01(ICD-10) Repository 08/27/2018 Unknown I48.92 - Unspecified Moodispabradley, Carlos Active [facility] atrial flutter / Community I48.92(ICD-10) Hospital Repository 08/07/2018 Unknown N18.9 - Chronic My Damon Gurjit Active [facility] kidney disease, Community unspecified / Hospital N18.9(ICD-10) Repository 08/07/2018 Unknown D63.1 - Anemia in My Damon Active [facility] chronic kidney Community disease / Hospital D63.1(ICD-10) Repository 08/06/2018 Unknown I21.3 - ST elevation Carlos Mcallister Active [facility] (STEMI) myocardial Community infarction of Hospital unspecified site / Repository I21.3(ICD-10) 08/06/2018 Unknown I48.1 - Persistent Carlos Mcallister Active [facility] atrial fibrillation Community / I48.1(ICD-10) Hospital Repository 08/11/2018 Unknown Z95.810 - Presence Stephen, Otilio Active [facility] of automatic Community (implantable) Hospital cardiac Repository defibrillator / Z95.810(ICD-10) 08/11/2018 Unknown I42.0 - Dilated Stephen, [place] Active [facility] cardiomyopathy / Community I42.0(ICD-10) Hospital Repository 08/11/2018 Unknown R55 - Syncope and Stephen, [place] Active [facility] collapse / Community R55(ICD-10) Hospital Repository 08/11/2018 Unknown I50.43 - Acute on Stephen, [place] Active [facility] chronic combined [facility] systolic Hospital (congestive) and Repository diastolic (congestive) heart failure / I50.43(ICD-10) 02/13/2018 Unknown I50.22 - Chronic Gamboa, Active [facility] systolic [facility] (congestive) heart Hospital failure / Repository I50.22(ICD-10) 11/21/2017 Unknown 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, Active [facility] gammopathy / [facility] D47.2(ICD-10) Hospital Repository 11/21/2017 Unknown Z01.818 - Encounter Isckarus, Active [facility] for other [facility] preprocedural Hospital examination / Repository Z01.818(ICD-10) 11/21/2017 Unknown D69.6 - Isckarus, Active [facility] Thrombocytopenia, [facility] unspecified / Hospital D69.6(ICD-10) Repository 11/21/2017 Unknown D61.818 - Other Isckarus, Active [facility] pancytopenia / [facility] D61.818(ICD-10) Hospital Repository 11/21/2017 Unknown D64.9 - Anemia, Isckarus, Active [facility] unspecified / [facility] D64.9(ICD-10) Hospital Repository 11/18/2017 Unknown I50.82 - Angelica Kim Active [facility] Biventricular heart Community failure / Hospital I50.82(ICD-10) Repository 11/18/2017 Unknown I47.2 - Ventricular Angelica Kim Active [facility] tachycardia / Community I47.2(ICD-10) Hospital Repository PROCEDURES PROCEDURES No Procedure Records FoundRESULTS RESULTS PROTIME W/INR Collected: 08/27/2018 Status: F Source: [place] 10:36 AM [facility] REPOSITORY TYPE CODE TESTS RESULT OUT OF REFERENCE UNITS RANGE LAB L9200.1001 11.9-14.4 SEC High PROTIME ISTAT 23.2 Result Comment: Reference Range 11.9 - 14.4 LAB L9200.2000 Normal INR ISTAT 2.00 Result Comment: Critical Value > 3.5 Performed By: #### L9200.0000 #### [facility] [place] [address] CBC W/DIFF, AUTOMATED Collected: 08/20/2018 Status: F Source: [place] 10:30 AM [facility] REPOSITORY TYPE CODE TESTS RESULT OUT OF RANGE REFERENCE UNITS LAB L100.1000 4.4-11.0 K/mm3 Low WBC 3.3 LAB L100.1200 4.2-5.4 M/mm3 Low RBC 3.08 LAB L100.1300 12.0-15.0 g/dl Low HGB 10.1 LAB L100.1400 37-47 % Low HCT 32.4 LAB L100.1500 81-99 fL High MCV 105.2 LAB L100.1600 27.0-32.0 pg High MCH 32.8 LAB L100.1700 32-36 g/gl Low MCHC 31.2 LAB L100.1810 11.6-14.6 % Normal RDW CV 13.2 LAB L100.1820 35.1-43.9 fl High RDW SD 50.2 LAB L100.1900 150-450 K/mm3 Low PLT 135 LAB L100.2000 6.2-12.0 fl Normal MPV 10.6 LAB L100.2100 47-70 % Normal NEUT% 62.5 LAB L100.2200 19-41 % Normal LY% 24.6 LAB L100.2300 0-10 % Normal MONO% 6.6 LAB L100.2400 0-5 % High EO% 5.7 LAB L100.2500 0-1 % Normal BASO% 0.6 LAB L100.2550 0.0-0.9 % Normal IM GRAN % 0.000 Result Comment: IG% - Immature Granulocytes (promyelocytes, myelocytes and metamyelocytes) > 1% indicates that a LEFT SHIFT is Present. LAB L100.2620 2.0-7.7 X10 3/uL Normal Absolute Neut 2.1 LAB L100.2720 0.83-4.51 X10 3/ul Low Absolute Lymph 0.82 Performed By: #### L100.0100 #### [facility] [address] [place], [address] PROTHROMBIN TIME W/INR Collected: 08/20/2018 Status: F Source: [place] 10:30 AM [facility] REPOSITORY Order Comment: Comments: STANDING ORDER/PATIENT IS HOME BOUND Comments: STANDING ORDER/PATIENT IS HOME BOUND TYPE CODE TESTS RESULT OUT OF REFERENCE UNITS RANGE LAB L300.4150 11.7-14.9 SECONDS High PROTIME 43.9 LAB L300.4200 High alert INR 4.6 Result Comment: CRITICAL VALUE VERIFIED. CALLED TO JOE AT [facility] 08/20/18 110[address]. RESULTS READ BACK BY SAME . Performed By: #### L300.3900 #### [facility] [address] [place], [address] CARDIOLOGY VISIT Observed: 08/07/2018 Status: F Source: [place] REPORT 4:16 PM [facility] REPOSITORY [facility] [address] [place] [address] OFFICE VISIT Date of Service: 08/07/18 MR#: [id number] Acct: [id number] Name: CAROLINE VALVERDE Rep #: [id number] : 1940 Provider: VAHID Damon Age/Sex: 78/F Location: [facility] Status: Signed HPI HPI Details: CAROLINE VALVERDE, is a 78 F who presents to the office today for a cardiovascular follow-up. 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 Patient was admitted to [facility] in July 2018 for syncopal episode. She underwent an echocardiogram that showed ejection fraction 55%. Her AICD was interrogated and appear to be functioning appropriately. She did not have any noted dysrhythmia. Her hydralazine was discontinued. It appears that her syncopal episode was related to urinary tract infection and anemia of chronic disease. She did require 1 unit of packed red blood cells. She also was discharged home. Pt denies chest, arm, jaw, or neck discomfort. His exercise tolerance is stable. Pt denies symptoms of palpitations, near syncopal or syncopal episodes. Pt denies edema or claudication issues. Pt. denies PND, blood in urine, myalgia, or unexplainable fatigue. She states palpitations occasionally. She notices SOB and fatigue with ambulation. She states lightheadedness and dizziness with position changes. She states sleeping with two pillows nightly. She states black sticky stool. She states her energy is improving. Intake Vital Signs08/07/18 Body Mass Index (BMI) 28.1 08/07/18 Height 5 ft 4 in 08/07/18 Weight: 155 lb 08/07/18 Body Mass Index (BMI) 26.6 Intake Visit Reasons: NOT FEELING WELL (HAS TO HAVE A FRIDAY) Accompanied by: Son Is patient in pain?: No Allergies levothyroxine sodium [From Synthroid] Allergy (Severe, Verified 08/07/18 13:40) Pt states it caused renal failure. thyroid, pork [From Perrin Thyroid] Allergy (Severe, Verified 08/07/18 13:40) Unknown latex Allergy (Intermediate, Verified 08/07/18 13:40) Rash Medications Mirtazapine [Remeron] 45 mg PO QHS 10/03/15 [History Confirmed 08/07/18] Sertraline HCl [Zoloft] 100 mg PO QHS 10/03/15 [History Confirmed 08/07/18] Dicyclomine HCl [Bentyl] 10 mg PO DINNER 08/29/17 [History Confirmed 08/07/18] Melatonin/Pyridoxine HCl (B6) [Melatonin 10 mg Tablet] 10 mg PO QHS 08/29/17 [History Confirmed 08/07/18] cyanocobalamin (vit B-12) 500 mcg tablet 1,000 mcg PO DAILY tab 12/12/17 [History Confirmed 08/07/18] lorazepam 0.5 mg tablet 0.5 mg PO BID 12/12/17 [History Confirmed 08/07/18] furosemide 20 mg tablet 40 mg PO QDAY tab 01/23/18 [History Confirmed 08/07/18] Carvedilol 6.25 mg PO BID 07/26/18 [History Confirmed 08/07/18] Cholecalciferol (Vitamin D3) [Vitamin D3] 5,000 unit PO DAILY 07/26/18 [History Confirmed 08/07/18] Lorazepam [Ativan] 1 mg PO QHS 07/26/18 [History Confirmed 08/07/18] Sacubitril/Valsartan 49-51 mg [Entresto 49 mg-51 mg Tablet] 1 ea PO BID 07/26/18 [History Confirmed 08/07/18] Sertraline HCl [Zoloft] 50 mg PO 1500 07/26/18 [History Confirmed 08/07/18] Warfarin Sodium 2 mg PO MOTUWETHFR 07/26/18 [History Confirmed 08/07/18] Warfarin Sodium [Coumadin] 4 mg PO SUSA 07/26/18 [History Confirmed 08/07/18] Ciprofloxacin [Cipro] 250 mg PO BID #6 tab 07/28/18 [Rx Confirmed 08/07/18] isosorbide mononitrate ER 30 mg tablet,extended release 24 hr 15 mg PO DAILY tab 08/07/18 [History Confirmed 08/07/18] PENDING SALE TO [facility] Medical History Paroxysmal atrial fibrillation (Chronic) MGUS (monoclonal gammopathy of unknown significance) (Chronic) Pancytopenia (Chronic) Biventricular congestive heart failure (Chronic) Cardiac pacemaker in situ (Chronic) CKD (chronic kidney disease), stage III (Chronic) Chronic systolic congestive heart failure (Chronic) CHF (congestive heart failure) (Chronic) HTN (hypertension) (Chronic) Primary cardiomyopathy (Chronic) 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) Chronic respiratory failure (Chronic) Ventricular tachycardia (Chronic) Hyperlipidemia (Chronic) Pulmonary embolus (Chronic) Mural thrombus of cardiac apex (Chronic) Shortness of breath (Acute) History of cardioversion (Suspected) Dizziness and giddiness (Resolved) Fatigue (Resolved) Syncope (Resolved) history of temporary dialysis (Resolved) Surgical History S/P mitral valve repair (Chronic) S/P tricuspid valve repair (Chronic) Status post ablation of atrial flutter (Chronic) AICD (automatic cardioverter/defibrillator) present (Chronic) H/O cardiac radiofrequency ablation (Resolved) History of cardiac cath (Resolved) Hx of cholecystectomy (Resolved) ligation of left atrial appendage (Resolved) Family History Father CAD (coronary artery disease) Myocardial infarction Mother CVA (cerebral vascular accident) CHF (congestive heart failure) Daughter Arthritis Atrial fibrillation Hyperlipidemia Social History Smoking Status: Never smoker alcohol intake: never substance use type: does not use diet: low salt caffeine: No what type of physical activity do you participate in: none seatbelt use: always do you feel safe at home: Yes ROS Const Const: Negative for weakness, body ache, fever(s), chills or fatigue ENT ENT: Positive for dizziness Cardio Chest Pain: No Palpitations: No Edema: None Muscle aches with walking: None Resp Respiratory: Positive for SOB orthopnea\SOB lying down and SOB with activity; negative for SOB at rest or paroxysmal nocturnal dyspnea GI GI: Positive for black,tarry stools; negative nausea, bright, red blood in stools or vomiting blood/hematemesis : Negative for hematuria or frequent nighttime urination/ nocturia Musc Musc: Negative for muscle aches/ myalgia Skin Skin: Negative non-healing lesions or rash Neuro Neuro: Positive for lightheadedness and dizziness; negative for near syncope, syncope, orthostatic symptoms or weakness Endo Endo: Negative for fatigue Allergy Allergy/Immunology: Negative for rash Cardiology Exam Const Appearance: cooperative, healthy appearing, comfortable and no acute distress Nutritional Appearance: average body habitus Orientation: alert, awake and oriented x3 pale Head Head: normal to inspection Ears: hearing grossly normal bilaterally Nose: external nose normal Face and Sinus: face symmetric Mouth: oral mucosae normal Neck Neck: no JVD and normal visual inspection Carotids: normal carotid upstroke Chest Chest inspection: normal inspection of the chest, normal respiratory effort, Pacemaker/ICD Yes left pectoral incision and symmetric chest movement Auscultation: Bilateral: Clear to Auscultation Cardio Rate: regular rate Rhythm: regular rhythm Heart sounds: S2 normal and murmur; negative rub or gallop Murmur: Grade 2/6 and LLSB GI GI: normal to inspection Neuro General: alert, awake, oriented x3 and CN's II-XI intact bilaterally Skin Skin: no rashes or lesions noted Extremities Pulses: Normal: Right Posterior Tibial Pulse, Left Posterior Tibial Pulse, Right Radial Pulse, Left Radial Pulse Lower Extremity Edema: None: Bilateral Psych Psychological: normal affect Supplemental Info Pacemaker check from September 2017 showed no VT/VF episodes and 1 AT/AF episode ongoing in her percent of total time. Presented rhythm was Bi-V paced at 73 ppm with underlying chronic atrial fibrillation. Battery longevity is approximately 6.1 years. Echocardiogram from July 2018 showed status post mitral valve repair, normal LV size, estimate ejection fraction 55%, stage I diastolic dysfunction, severely enlarged left atrium, moderately enlarged right atrium, and mild to moderate tricuspid valve insufficiency. Heart catheterization from March 2009 showed left main coronary artery as normal, LAD as normal, RCA as normal, LCx as a nondominant vessel and is normal. Assessment AND Plan 1. Chronic systolic congestive heart failure I50.22 Plan Her echocardiogram in July 2018 showed ejection fraction 55% in stage I diastolic dysfunction. Her ejection fraction is much improved since biventricular device and medication adjustment. At this time she will continue with current medications and we will continue to monitor. 2. Paroxysmal atrial fibrillation I48.0 Plan Her echocardiogram in July 2018 showed severely enlarged left atrium, moderate large right atrium, and ejection fraction 55%. Based on her ICD evaluation in July 2018 she is appears to be have underlying rhythm of chronic atrial fibrillation. At this time she will continue with current beta-annia and Coumadin therapy. We will continue to monitor. 3. Syncope and collapse R55 Plan She denies any recurrent syncopal episodes since discharge. Her hydralazine was discontinued during her hospitalization to help with this. Her blood pressure and heart rate is well-controlled today in office. We will continue to monitor. 4. Cardiac pacemaker in situ Z95.0 Plan This was interrogated during hospitalization. It did not reveal any VT/VF episodes and she continued to have underlying chronic atrial fibrillation. She will continue to follow-up with pacemaker clinic on a routine/scheduled basis. 5. HTN (hypertension) I10 Plan Patient's blood pressure is well-controlled today in the office. We will continue to monitor this. We will not make any medication regimen changes. Plan Detail Other Orders Orders: Other Medications New: Additional Comments Thank you for allowing us to participate in the patients plan of care, if you have any questions please do not hesitate to call. This note was generated using a voice recognition system and there may be incorrect words, spelling or punctuation that were not noted when reviewing the office note prior to saving. Coding Level of Care Code Off vis,est,level 3 Diagnoses Chronic systolic congestive heart failure I50.22 Paroxysmal atrial fibrillation I48.0 Syncope and collapse R55 Cardiac pacemaker in situ Z95.0 HTN (hypertension) I10 Hypertension type: essential hypertension Coding Level of Care Code Off vis,est,level 3 Diagnoses Chronic systolic congestive heart failure I50.22 Paroxysmal atrial fibrillation I48.0 Syncope and collapse R55 Cardiac pacemaker in situ Z95.0 HTN (hypertension) I10 Hypertension type: essential hypertension 08/07/18 1616 <Electronically signed by My XAVIER> Date My XAVIER Cosigner Signature: Date (if applicable) CC: PROTIME W/INR Collected: 08/06/2018 Status: F Source: [place] 10:59 AM [facility] REPOSITORY TYPE CODE TESTS RESULT OUT OF REFERENCE UNITS RANGE LAB L9200.1001 11.9-14.4 SEC High PROTIME ISTAT 18.0 Result Comment: Reference Range 11.9 - 14.4 LAB L9200.2000 Normal INR ISTAT 1.50 Result Comment: Critical Value > 3.5 Performed By: #### L9200.0000 #### [facility] Laboratory Point of Care [address] [place] [address] DISCHARGE INSTRUCTION Observed: 07/28/2018 Status: F Source: [place] 2:16 PM [facility] REPOSITORY [facility] Medical Records Department [address] [place] [address] Instructions for Home/Discharge Instructions 07/28/18 1339 MR#: [id number] Acct: [id number] Name: CAROLINE VALVERDE Rep #: [id number] : 1940 78 From: Thang Ramirez MD PCP: Michael Muse MD Status: ADM IN - Discharge Diagnoses Current Active Problems: Current Active and Chronic Problems (Last Reviewed 07/26/18 @ 08:34 by Richie Rice MD) Syncope and collapse (Acute) You will use the following diet at home:: Cardiac Allergies/Adverse Reactions: Allergies levothyroxine sodium [From Synthroid] Allergy (Severe, Verified 02/13/18 14:45) Pt states it caused renal failure. thyroid, pork [From Perrin Thyroid] Allergy (Severe, Verified 02/13/18 14:45) Unknown Pt states it caused renal failure latex Allergy (Intermediate, Verified 02/13/18 14:45) Rash Medications to take at Discharge Mirtazapine [Remeron] 45 mg PO QHS 10/03/15 Sertraline HCl [Zoloft] 100 mg PO QHS 10/03/15 Dicyclomine HCl [Bentyl] 10 mg PO DINNER 08/29/17 Melatonin/Pyridoxine HCl (B6) [Melatonin 10 mg Tablet] 10 mg PO QHS 08/29/17 cyanocobalamin (vit B-12) 500 mcg tablet 1,000 mcg PO DAILY tab 12/12/17 lorazepam 0.5 mg tablet 0.5 mg PO BID 12/12/17 furosemide 20 mg tablet 40 mg PO QDAY tab 01/23/18 Carvedilol 6.25 mg PO BID 07/26/18 Cholecalciferol (Vitamin D3) [Vitamin D3] 5,000 unit PO DAILY 07/26/18 Lorazepam [Ativan] 1 mg PO QHS 07/26/18 Sacubitril/Valsartan 49-51 mg [Entresto 49 mg-51 mg Tablet] 1 each PO BID 07/26/18 Sertraline HCl [Zoloft] 50 mg PO 1500 07/26/18 Warfarin Sodium 2 mg PO MOTUWETHFR 07/26/18 Warfarin Sodium [Coumadin] 4 mg PO SUSA 07/26/18 isosorbide mononitrate 10 mg tablet 15 mg PO DAILY 07/26/18 Ciprofloxacin [Cipro] 250 mg PO BID #6 tablet 07/28/18 The following prescriptions were given: Ciprofloxacin [Cipro] 250 mg PO BID #6 tablet Primary Care Physician: Landry Muse MD [Primary Care Provider] - Please follow up with your Primary Care Physician in: IN 1 WEEK Test Results: Test results from this visit will be discussed in further detail at your follow-up appointment, if applicable. Please Follow Up With: Carlos Mcallister MD When: IN 2-4 WEEKS Proposed Discharge Date: 07/28/18 07/28/18 1416 <Electronically signed by Thang Ramirez MD> Date Thang Ramirez MD CC: Michael Muse MD; Otilio Mitchell MD DISCHARGE SUMMARY Observed: 07/28/2018 Status: F Source: [place] 10:47 AM [facility] REPOSITORY [facility] Medical Records Department [address] [place] [address] Discharge Summary 07/28/18 1039 MR#: [id number] Acct: [id number] Name: CAROLINE VALVERDE Rep #: [id number] : 1940 78 From: Thang Ramirez MD PCP: Michael Muse MD Status: ADM IN Location: [place] [address] Discharge Date and Diagnosis - Problem List Patient Problems: Active and Suspected Problems (Last Reviewed 07/26/18 @ 08:34 by Richie Rice MD) Syncope and collapse (Acute) Date of Admission: 07/26/18 Date of Discharge: 07/28/18 - Primary Discharge Diagnosis Active and Suspected Problems (Last Reviewed 07/26/18 @ 08:34 by Richie Rice MD) Syncope and collapse (Acute) - Secondary Discharge Diagnosis Chronic Problems (Last Reviewed 07/26/18 @ 08:34 by Richie Rice MD) Atrial flutter (Chronic) Dilated cardiomyopathy (Chronic) Nonrheumatic mitral valve regurgitation (Chronic) Paroxysmal atrial fibrillation (Chronic) MGUS (monoclonal gammopathy of unknown significance) (Chronic) Pancytopenia (Chronic) Biventricular congestive heart failure (Chronic) Cardiac pacemaker in situ (Chronic) ICD implant January 2007; ICD extraction/upgrade to a biventricular Pacemaker 06/28, #26 Fletcher-Madison annuloplasty ring; Pacemaker generator change 05/22/17; CKD (chronic kidney disease), stage III (Chronic) Chronic systolic congestive heart failure (Chronic) CHF (congestive heart failure) (Chronic) Depression (Chronic) Esophageal reflux (Chronic) Heart valve replaced (Chronic) Mitral AND Tricuspid valves replaced 05/19/09 @ [facility] HTN (hypertension) (Chronic) Primary cardiomyopathy (Chronic) 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) Chronic respiratory failure (Chronic) S/P mitral valve repair (Chronic) 05/19/09, Mitral valve repair with placement of #26 Fletcher- Madison annuloplasty ring, placement of Linn stitch AND tricuspid valve repair with placement of #28 tricuspid annuloplasty ring @ [facility] S/P tricuspid valve repair (Chronic) 05/19/09 @ [facility] Status post ablation of atrial flutter (Chronic) Ventricular tachycardia (Chronic) AICD (automatic cardioverter/defibrillator) present (Chronic) ICD Implant January 2007, ICD Extraction/upgrade to a biventricular pacemaker 06/28; Pulse generator change AND AV node ablation 09/23/12; Pacemaker generator change 05/22/17 Hyperlipidemia (Chronic) Pulmonary embolus (Chronic) Mural thrombus of cardiac apex (Chronic) Hospital Course and Treatment Operations: None Summary of Care Provided: Patient is a 78-year-old lady with multiple comorbidities admitted with progressive generalized weakness fall and syncopal episode. An assessment of acute on chronic diastolic congestive heart failure made admitted to monitored bed for further management. Patient was also found to have pyuria urine cultures were obtained on admission 1. Syncopal episode felt to be related to patient's anemia hemoglobin did drop from 9-7.5 received 1 unit PRBC blood transfusion on 06/25/2018. Patient was seen by cardiology in consultation recommendation was made for patient's AICD to be interrogated patient AICD was interrogated with no malfunction noticed 2. Acute on chronic systolic and diastolic congestive heart failure patient was treated with Lasix. Already on Coreg as well as Entresto. Hydralazine was discontinued in view of patient's syncopal episodes 3. Anemia felt to be related to anemia of chronic disorder no evidence of acute bleeding found with patient deemed to be symptomatic patient was transfused 1 unit PRBC 4. Acute cystitis with E coli patient treated with Rocephin discharged home on ciprofloxacin based on the sensitivities 5. History of dilated nonischemic cardiomyopathy patient has underlying AICD 6. Chronic pancytopenia 7. Monoclonal gammopathy 8. Dyslipidemia 9. Paroxysmal atrial fibrillation rate controlled also on systemic anticoagulation with Coumadin INR is therapeutic 10. Valvular heart disease with history of tricuspid valve repair as well as mitral valve disease 2D echo ordered for reassessment 11. DVT prophylaxis patient is on Coumadin with a therapeutic INR Patient Problems: Active and Suspected Problems (Last Reviewed 07/26/18 @ 08:34 by Richie Rice MD) Syncope and collapse (Acute) - Physical Exam General: Alert Lungs: Diminished Cardiovascular: Regular rate, Regular Rhythm Abdomen: Non-Distended Extremities: No clubbing, No cyanosis Vital Signs Temp Pulse Resp BP Pulse Ox 98.5 F 72 19 H 106/61 95 07/28/18 09:56 07/28/18 09:56 07/28/18 09:56 07/28/18 09:56 07/28/18 09:56 Oxygen Flow Rate (L/min) 3 Oxygen Delivery Method Nasal Cannula Weight: 73.5 kg Body Mass Index (BMI) 28.3 Orthostatic Vital Signs Start: 07/26/18 05:50 Freq: q24h Status: Active Protocol: Activity Type Activity Date Activity User E-Sign Co-Sign Detail Recorded Client Recorded Date Recorded By Document 07/28/18 05:00 MLS [id number] 07/28/18 05:56 MLS Orthostatic Vitals Standing -Blood Pressure (90/60-120/80) 129/53 H -Extremity Use Left Arm -Pulse Rate (60-100) 72 Sitting -Blood Pressure (90/60-120/80) 123/56 H Intake and Output for Last 24 Hours Intake Total 410 / 410 317.2 / 317.2 Output Total 200 / 200 Balance 210 / 210 317.2 / 317.2 Microbiology Past 72 Hours 07/26/18 00:55 Urine Culture - Final Urine, Clean Catch Escherichia coli 07/26/18 18:55 Stool Occult Blood (HADLEY) - Final Stool Laboratory Tests Past 24 Hrs Magnesium 2.3 Home Medications: Medications to take at Discharge Mirtazapine [Remeron] 45 mg PO QHS 10/03/15 Sertraline HCl [Zoloft] 100 mg PO QHS 10/03/15 Dicyclomine HCl [Bentyl] 10 mg PO DINNER 08/29/17 Melatonin/Pyridoxine HCl (B6) [Melatonin 10 mg Tablet] 10 mg PO QHS 08/29/17 cyanocobalamin (vit B-12) 500 mcg tablet 1,000 mcg PO DAILY tab 12/12/17 lorazepam 0.5 mg tablet 0.5 mg PO BID 12/12/17 furosemide 20 mg tablet 40 mg PO QDAY tab 01/23/18 Carvedilol 6.25 mg PO BID 07/26/18 Cholecalciferol (Vitamin D3) [Vitamin D3] 5,000 unit PO DAILY 07/26/18 Lorazepam [Ativan] 1 mg PO QHS 07/26/18 Sacubitril/Valsartan 49-51 mg [Entresto 49 mg-51 mg Tablet] 1 each PO BID 07/26/18 Sertraline HCl [Zoloft] 50 mg PO 1500 07/26/18 Warfarin Sodium 2 mg PO MOTUWETHFR 07/26/18 Warfarin Sodium [Coumadin] 4 mg PO SUSA 07/26/18 isosorbide mononitrate 10 mg tablet 15 mg PO DAILY 07/26/18 Ciprofloxacin [Cipro] 250 mg PO BID #6 tablet 07/28/18 Following Prescrptions Were Given to Patient: Ciprofloxacin [Cipro] 250 mg PO BID #6 tablet Primary Care Physician: Landry Muse MD [Primary Care Provider] - Medical Necessity - Tobacco Use Smoking Status: Never smoker Meaningful Use Info Meaningful Use Diagnoses (Choose all that apply): CHF - CHF ROMARIO/ARB ordered at discharge?: Yes Documented LVEF (%): 55 Code Visit Inpatient E AND M: 29659 Disch Hosp 07/28/18 1047 <Electronically signed by Thang Ramirez MD> Date Thang Collier Signature (if applicable): Date CC: Michael Muse MD; Thang Ramirez MD Signed 12 LEAD ELECTROCARDIOGRAM Observed: 07/27/2018 Status: F Source: [place] 3:42 PM [facility] REPOSITORY [facility] Cardiovascular Services [address] [address] 12 Lead EKG 07/25/18 2303 MR#: [id number] Acct: [id number] Name: CAROLINE VALVERDE Rep #: [id number] : 1940 78 From: Otilio Mitchell MD Attending Dr: Thang Ramirez MD Status: ADM IN Ordering Dr: Rian Lozoya MD Date: 07/25/18 Location: [facility] Sex: F C Admitted: 07/26/18 Test Reason : SYNCOPE Blood Pressure : / mmHG Vent. Rate : 072 BPM Atrial Rate : 057 BPM P-R Int : 000 ms QRS Dur : 224 ms QT Int : 510 ms P-R-T Axes : 000 -48 -06 degrees QTc Int : 558 ms Ventricular-paced rhythm Abnormal ECG Confirmed by STEPHEN PAUL, OTILIO ([id number]), newspaper editor managing SHAHANA SANDRA ([id number]) on 07/27/2018 3:42:19 PM Referred By: DR LOZOYA Confirmed By:OTILIO MITCHELL MD 07/27/18 1542 Date Otilio Mitchell MD CC: Michael Muse MD; Thang Ramirez MD; Rian Lozoya MD Signed ECHOCARDIOGRAM COMPLETE Observed: 07/27/2018 Status: F Source: [place] 3:09 PM [facility] REPOSITORY [facility] Cardiovascular Services [address] [address] Echo Complete 07/27/18 1054 MR#: [id number] Acct: [id number] Name: CAROLINE VALVERDE Rep #: [id number] : 1940 78 From: Otilio Mitchell MD Attending Dr: Thang Ramirez MD Status: ADM IN Ordering Dr: Richie Rice MD Date: 07/26/18 Location: [facility] Sex: F C Admitted: 07/26/18 Reason For Study: Syncope Procedure This was a 2D Doppler, Color Flow transthoracic echocardiogram. The study was technically difficult. Exam performed portable in patient room. Left Ventricle Normal LV size. Left ventricular systolic function is normal. The estimated ejection fraction is 55 %. Transmitral diastolic flow velocities suggest mild (stage 1) diastolic dysfunction (reversed pattern). No regional wall motion abnormalities noted. Right Ventricle Moderately dilated right ventricle. ICD or pacer leads identified within the right ventricle. Normal systolic function. Atria The left atrium is severely enlarged. The right atrium is moderately enlarged. Mitral Valve An annuloplasty ring is noted in the mitral position. Status post mitral valve repair. Tricuspid Valve Mild to moderate (1-2+) tricuspid valve insufficiency. Pulmonary artery systolic pressure is 48 mmHg. An annuloplasty ring is noted in the tricuspid position. Aortic Valve Trisinus/trileaflet aortic valve. Trivial eccentric aortic valve insufficiency. Pulmonic Valve Normal pulmonic valve. Mild (1+) pulmonic valve insufficiency. Great Vessels Normal aortic root. The pulmonary artery is normal size. Normal inferior vena cava. Pericardium/Pleural No pericardial effusion. MMode/2D Measurements AND Calculations LVIDd: 5.0 cm IVSd: 0.94 cm Ao root diam: 3.1 cm LVIDs: 3.3 cm LVPWd: 1.1 cm LA dimension: 5.6 cm RVDd: 5.3 cm FS: 34.2 % LAV(MOD-sp4): 146.5 ml LA A4 area: 35.2 cm2 RA A4 area: 30.6 cm2 Time Measurements MV dec time: 0.36 sec Doppler Measurements AND Calculations MV E max fito: 128.1 cm/sec MV V2 max: 168.2 cm/sec Ao V2 max: 133.7 cm/sec MV A max fito: 45.8 cm/sec MV max P.3 mmHg Ao max P.2 mmHg MV E/A: 2.8 MV V2 mean: 105.7 cm/sec Ao V2 mean: 85.6 cm/sec MV mean P.1 mmHg Ao mean P.4 mmHg MV V2 VTI: 43.7 cm Ao V2 VTI: 26.2 cm LV V1 max: 127.8 cm/sec PA V2 max: 85.2 cm/sec TR max fito: 333.9 cm/sec LV V1 max P.5 mmHg TR max P.6 mmHg LV V1 mean P.7 mmHg LV V1 mean: 73.4 cm/sec LV V1 VTI: 23.2 cm Interpretation Summary Status post mitral valve repair. Normal LV size. Left ventricular systolic function is normal. The estimated ejection fraction is 55 %. Transmitral diastolic flow velocities suggest mild (stage 1) diastolic dysfunction (reversed pattern). The left atrium is severely enlarged. The right atrium is moderately enlarged. Mild to moderate (1-2+) tricuspid valve insufficiency. Ordering Physician: Richie Rice Referring Physician: Michael Muse Performed By: Brodwolf, Dayday, RCS 07/27/18 1509 Date Otilio Mitchell MD CC: Michael Muse MD; Thang Ramirez MD; Richie Rice MD Date Dictated: 07/27/18 1054 Date Transcribed: 07/27/18 1509 Second Chef: Signed CONSULTATION Observed: 07/27/2018 Status: F Source: [place] 7:17 AM [facility] REPOSITORY [facility] Medical Records Department [address] [place] [address] Consultation 07/26/18 1705 MR#: [id number] Acct: [id number] Name: CAROLINE VALVERDE Rep #: [id number] : 1940 78 From: Otilio Mitchell MD PCP: Michael Muse MD Status: ADM IN [id number] Reason for Consult Date of Consultation: 07/26/18 Reason for Consultation: Syncopal episode History of Present Illness: The patient is a 78 year old F who presents to the emergency room with a syncopal episode. She says that she had been in his stable state of health and then she is not quite sure what happened but she was getting up from the bed and the next thing they knew she had a syncopal episode. There was no prior chest pain or paroxysmal nocturnal dyspnea or pedal edema she does not think that her defibrillator fired. She has a history of nonischemic cardiomyopathy, chronic systolic congestive heart failure [place] Association class IV, valvular heart disease status post mitral valve repair with #26 Fletcher Madison angioplasty ring and tricuspid valve repair with a #28 tricuspid ring, atrial fibrillation/flutter post AV node ablation with Bi-V ICD placement, left atrial appendage ligation, PFO, hypertension, hyperlipidemia, and previous syncope. At her appointment last month she was started on Entresto. Unfortunately right after her office visit she was admitted to [facility] for acute on chronic systolic congestive heart failure. She did start Entresto of following her hospital stay. She believes that she has been feeling better since starting the Entresto She feels that she has a little bit more energy and is not as fatigued. She does not have any chest discomfort. She has not had any issues with positional dizziness. She does not have any lower extremity edema. She does not have any palpitations that she is aware of. It does not appear that this episode was immediately after taking 1 of her Entresto pills. Past Medical History Allergies/Adverse Reactions: Allergies levothyroxine sodium [From Synthroid] Allergy (Severe, Verified 02/13/18 14:45) Pt states it caused renal failure. thyroid, pork [From Perrin Thyroid] Allergy (Severe, Verified 02/13/18 14:45) Unknown Pt states it caused renal failure latex Allergy (Intermediate, Verified 02/13/18 14:45) Rash Home Medications: Ambulatory Orders Medication Instructions Recorded Mirtazapine [Remeron] 45 mg PO QHS 10/03/15 Sertraline HCl [Zoloft] 100 mg PO QHS 10/03/15 Dicyclomine HCl [Bentyl] 10 mg PO DINNER 08/29/17 Past Medical History (Chronic Problems): Chronic Problems (Last Reviewed 07/26/18 @ 08:34 by Richie Rice MD) Atrial flutter (Chronic) Dilated cardiomyopathy (Chronic) Nonrheumatic mitral valve regurgitation (Chronic) Paroxysmal atrial fibrillation (Chronic) MGUS (monoclonal gammopathy of unknown significance) (Chronic) Pancytopenia (Chronic) Biventricular congestive heart failure (Chronic) Cardiac pacemaker in situ (Chronic) ICD implant January 2007; ICD extraction/upgrade to a biventricular Pacemaker 06/28, #26 Fletcher-Madison annuloplasty ring; Pacemaker generator change 05/22/17; CKD (chronic kidney disease), stage III (Chronic) Chronic systolic congestive heart failure (Chronic) CHF (congestive heart failure) (Chronic) Depression (Chronic) Esophageal reflux (Chronic) Heart valve replaced (Chronic) Mitral AND Tricuspid valves replaced 05/19/09 @ [facility] HTN (hypertension) (Chronic) Primary cardiomyopathy (Chronic) 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) Chronic respiratory failure (Chronic) S/P mitral valve repair (Chronic) 05/19/09, Mitral valve repair with placement of #26 Fletcher- Madison annuloplasty ring, placement of Linn stitch AND tricuspid valve repair with placement of #28 tricuspid annuloplasty ring @ [facility] S/P tricuspid valve repair (Chronic) 05/19/09 @ [facility] Status post ablation of atrial flutter (Chronic) Ventricular tachycardia (Chronic) AICD (automatic cardioverter/defibrillator) present (Chronic) ICD Implant January 2007, ICD Extraction/upgrade to a biventricular pacemaker 06/28; Pulse generator change AND AV node ablation 09/23/12; Pacemaker generator change 05/22/17 Hyperlipidemia (Chronic) Pulmonary embolus (Chronic) Mural thrombus of cardiac apex (Chronic) Surgical History: cholecystectomy, hysterectomy, pacemaker implantation, tonsillectomy, - - ICD placement. Psychiatric History: Anxiety - *Family History Maternal Family History: Family History (Last Reviewed 07/26/18 @ 08:35 by Richie Rice MD) Father CAD (coronary artery disease) Myocardial infarction Mother CVA (cerebral vascular accident) CHF (congestive heart failure) Daughter Arthritis Atrial fibrillation Hyperlipidemia History Items: Heart Disease Paternal Family History: Family History (Last Reviewed 07/26/18 @ 08:35 by Richie Rice MD) Father CAD (coronary artery disease) Myocardial infarction Mother CVA (cerebral vascular accident) CHF (congestive heart failure) Daughter Arthritis Atrial fibrillation Hyperlipidemia History Items: Heart Disease Smoking Status: Never smoker Alcohol: None Drugs: None Review of Systems - Review of Systems General: Reports: Fatigue, Malaise, Weakness. Denies: Fever, Night Sweats HEENT: Denies: Vision Change Cardiovascular: Reports: Near Syncope, Syncope. Denies: Chest Discomfort, Shortness of Breath, Orthopnea, PND, Peripheral Edema, Palpitations, Lightheadedness, Dizziness Respiratory: Denies: Cough, Sputum Production, Hemoptysis Gastrointestinal: Denies: Hematemesis, Hematochezia, Melena Genitourinary: Denies: Dysuria, Hematuria Muscoloskeletal: Denies: Myalgias Skin: Denies: Rash Neurological: Reports: Dizziness, Confusion Psychiatric: Denies: Anxiety Endocrine: Denies: Unexplained Weight Loss Hematologic/ Lymphatic: Reports: Anemia Subjectve: Elderly lady in no apparent distress lying in bed Objective: Vital Signs Temp Pulse Resp BP Pulse Ox 98.4 F 72 18 98/51 L 98 07/26/18 16:00 07/26/18 16:00 07/26/18 16:00 07/26/18 16:00 07/26/18 16:00 Oxygen Flow Rate (L/min) 2 Oxygen Delivery Method Nasal Cannula Weight: 163 lb 12.855 oz Body Mass Index (BMI) 28.3 Orthostatic Vital Signs Start: 07/26/18 05:50 Freq: q24h Status: Active Protocol: Activity Type Activity Date Activity User E-Sign Co-Sign Detail Recorded Client Recorded Date Recorded By Document 07/26/18 05:45 AML [id number] 07/26/18 05:51 AML Orthostatic Vitals Standing -Blood Pressure (90/60-120/80) 113/60 -Extremity Use Left Arm -Pulse Rate (60-100) 69 Sitting Intake and Output for Last 24 Hours Intake Total 742 / 742 Output Total 400 / 400 Balance 342 / 342 General: Awake, Alert, Oriented x 3, Ill Appearing HEENT: PERRL, EOMI, Sclera Non Icteric, Pallor Oral: Moist Mucosa Neck: Supple, Good ROM, No Lymph Node Enlargement Chest Wall: Midline Sternotomy Incision Lungs: Clear to auscultation Cardiovascular: Regular Rhythm, Normal S1, Normal S2, No Murmurs, No Rubs, No Gallops Vascular: No Carotid Bruits, Normal Femoral Pulses, Normal Radial Pulses, Normal Dorsalis Pedal Pulse, Normal Posterior Tibial Pulses Abdomen: Bowel Sounds Present, Soft, Non Tender, No HSM, No Organomegaly Extremities: No Cyanosis, No Clubbing, No edema Musculoskeletal: No Erythema Skin: No Rashes Lymphatic: No Lymph Node Enlargement Neurological: No Focal Motor or Sensory Deficit Psych/Mental Status: Appropriate 07/25/18 23:20: WBC 3.8 L, RBC 2.39 L, Hgb 8.0 L, Hct 26.8 L, MCV 112.1 H, MCH 33.5 H, MCHC 29.9 L, RDW 14.0, RDW Differential 55.0 H, Plt Count 134 L, MPV 9.8, Immature Gran % (Auto) 0.300, Neut % (Auto) 66.7, Lymph % (Auto) 13.6 L, [place] % (Auto) 11.2 H, Eos % (Auto) 7.4 H, Baso % (Auto) 0.8, Absolute Neuts (auto) 2.5, Total Counted Not Reportable 07/25/18 23:20: PT 20.2 H, INR 1.7 07/25/18 23:20: Sodium 143, Potassium 4.3, Chloride 112 H, Carbon Dioxide 27.0, Anion Gap 4 L, BUN 41 H, Creatinine 1.89 H, Est GFR (MDRD) Af Amer 33 L, Est GFR (MDRD) Non-Af 27 L, BUN/Creatinine Ratio 21.7 H, Glucose 135 H, Calcium 8.1 L, Total Bilirubin 0.40, Troponin I < 0.015 07/25/18 23:20: B-Natriuretic Peptide 2470.4 H 07/26/18 00:55: Urine Color Yellow, Urine Clarity Cloudy, Urine pH 6.0, Ur Specific [place] 1.015, Urine Protein 30 H, Urine Glucose (UA) Normal, Urine Ketones Negative, Urine Occult Blood Negative, Urine Nitrite Positive H, Urine Bilirubin Negative, Urine Urobilinogen Normal, Ur Leukocyte Esterase 500 H, Urine RBC 0 SEEN, Urine WBC 10- 25 SEEN 07/26/18 07:18: WBC 2.6 L, RBC 2.27 L, Hgb 7.5 L, Hct 25.2 L, MCV 111.0 H, MCH 33.0 H, MCHC 29.8 L, RDW 14.0, RDW Differential 54.0 H, Plt Count 106 L, MPV 10.0, Immature Gran % (Auto) 0.000, Neut % (Auto) 78.1 H, Lymph % (Auto) 9.6 L, [place] % (Auto) 6.9, Eos % (Auto) 5.0, Baso % (Auto) 0.4, Absolute Neuts (auto) 2.0, Total Counted Not Reportable 07/26/18 07:18: Sodium 144, Potassium 4.1, Chloride 115 H, Carbon Dioxide 23.0, Anion Gap 6, BUN 42 H, Creatinine 1.76 H, Est GFR (MDRD) Af Amer 36 L, Est GFR (MDRD) Non-Af 30 L, BUN/Creatinine Ratio 23.9 H, Glucose 93, Calcium 7.8 L Rhythm: EKG: Ventricular paced rhythm Assessment/Plan 1. Syncope * The etiology of the syncopal episode is not entirely clear it could be possibly secondary to hypotension with concomitant anemia. She has been transfused with 1 unit of packed red blood cells. I would recommend that her ICD be interrogated in the morning to make sure that there have been no discharges. Her medications would be adjusted as appropriate. 2. Congestive heart failure-chronic systolic * She does have a history of chronic systolic heart failure and she will be continued on her current medication with her Entresto as well as her beta-annia. Her diuretics would also be continued. Would obtain a more recent echocardiogram to reassess her left ventricular function. * 3. Status post ICD implantation * He continues to follow-up in our office and we will evaluate her ICD to make sure that they have been no ICD discharges. * 4. Dilated nonischemic cardiomyopathy * She has a history of nonischemic cardiomyopathy and is on appropriate medications. This would be balanced together with her blood pressure to make sure that no significant hypotensive events are noted. * I do not think that there is a role for both isosorbide hydralazine as well as Entresto. I will suggest discontinuing the earlier combination. This may also be contributing to some orthostatic changes. 5. Paroxysmal atrial fibrillation * She does have evidence of paroxysmal atrial fibrillation. It appears that she is in A. fib at this particular time anticoagulated. Her INR however is subtherapeutic and will be adjusted as appropriate. With her current anemia we may hold off on anticoagulation. * Rate limitation will be continue with the beta-annia. * 6. Valvular heart disease * He does have a history of mitral valve disease as well as tricuspid valve repair. * Recommend repeating her echocardiogram to reassess the above if it has not been done within the last 6 months. * 7. Anemia * Appears to have evidence of blood loss anemia. * Etiology of the above is likely multifactorial. * Continue supportive management to maintain a decent hemoglobin. * * Thank you for allowing me to participate in the care of your patient. Please don't hesitate to call if any issues arise 07/27/18 0717 <Electronically signed by Otilio Mitchell MD> Date Otilio Mitchell MD Cosigner Signature (if applicable): Date CC: Michael Muse MD; Otilio Mitchell MD Signed CBC-COMPLETE BLOOD CNT Collected: 07/27/2018 Status: F Source: [place] NO DIFF 5:26 AM [facility] REPOSITORY TYPE CODE TESTS RESULT OUT OF RANGE REFERENCE UNITS LAB L100.1000 4.4-11.0 K/mm3 Low WBC 3.0 LAB L100.1200 4.2-5.4 M/mm3 Low RBC 2.71 LAB L100.1300 12.0-15.0 g/dl Low HGB 9.0 LAB L100.1400 37-47 % Low HCT 29.3 LAB L100.1500 81-99 fL High MCV 108.1 LAB L100.1600 27.0-32.0 pg High MCH 33.2 LAB L100.1700 32-36 g/gl Low MCHC 30.7 LAB L100.1810 11.6-14.6 % High RDW CV 15.4 LAB L100.1820 35.1-43.9 fl High RDW SD 59.6 LAB L100.1900 150-450 K/mm3 Low PLT 110 LAB L100.2000 6.2-12.0 fl Normal MPV 10.3 Performed By: #### L100.0500 #### [facility] [address] [place], [address] BASIC METABOLIC Collected: 07/27/2018 Status: F Source: [place] PROFILE (BMP) 5:26 AM [facility] REPOSITORY TYPE CODE TESTS RESULT OUT OF RANGE REFERENCE UNITS LAB L501.0100 74-106 mg/dL Normal GLU 93 Result Comment: Please note revised GLUCOSE reference range effective 2017. LAB L501.1000 7-18 mg/dL High BUN 41 LAB L501.1100 0.55-1.02 mg/dL High CREAT,SERUM 1.74 Result Comment: The validity of the calculated GFR AND GFRAA in patients over 70 years has not been determined. Clinical correlation is essential. LAB L501.1110 >60 mL/min Low EST GFR 30 Result Comment: Non- GFR Calc LAB L501.1115 >60 mL/min Low EST GFR - AA 37 Result Comment: GFR Calc LAB L501.1255 ml/min Normal Estimated CRCL 23.38 LAB L501.1300 10-20 RATIO High BUN/CRE 23.6 LAB L501.2200 8.5-10 mg/dL Low .1 CA 7.9 LAB L501.5300 136-14 mmol/L Normal 5 NA 144 LAB L501.5600 3.5-5. mmol/L Normal 1 K 4.3 LAB L501.5900 98-107 mmol/L High CL 112 LAB L501.6100 21.0-3 mmol/L Normal 2.0 CO2 25.0 LAB L501.6200 5-15 Normal GAP 7 Performed By: #### L500.2500 #### [facility] [address] [place], [address] PROTHROMBIN TIME W/INR Collected: 07/27/2018 Status: F Source: [place] 5:26 AM [facility] REPOSITORY TYPE CODE TESTS RESULT OUT OF RANGE REFERENCE UNITS LAB L300.4150 11.7-14.9 SECONDS High PROTIME 23.7 LAB L300.4200 Normal INR 2.1 Performed By: #### L300.3900 #### [facility] [place], [address] MAGNESIUM Collected: 07/27/2018 Status: F Source: [place] 5:26 AM [facility] REPOSITORY TYPE CODE TESTS RESULT OUT OF RANGE REFERENCE UNITS LAB L501.5200 1.6-2.6 mg/dL Normal MG 2.3 Performed By: #### L501.5200 #### [facility] [address] [place], [address] Observed: 07/26/2018 Status: F Source: [place] STOOL OCCULT BLOOD 6:55 PM [facility] IFOB REPOSITORY STOB iFOB Occult Blood Negative Performed By: #### M100.7900 #### [facility] [address] [place], [address] TYPE AND SCREEN Collected: 07/26/2018 Status: F Source: [place] 10:00 AM [facility] REPOSITORY Order Comment: CMV NEG? N Number of units to transfuse: 1 Is this product for anemia associated with hemoglobinopathy? N Is pt's Hgb is </= to 7.0 mg/dl or Hct </= 21%? N Is there an orthostatic change in BP (SBP drop > 10mmHg)? N Is this for PREOP anemia correction prior to anesthesia? N Reason for Ordering Blood: Chronic Is there symptomatic anemia? N Are the blood/blood products to be transfused? Y Is the patient having/had surgery? N Give When? When Ready Irradiated? N Leukodepleted? Y TYPE CODE TESTS RESULT OUT OF RANGE REFERENCE UNITS LAB B10.0800 O Normal BLOOD TYPE GEL POSITIVE LAB B100.4000 Normal Antibody NEGATIVE Screen Performed By: #### B101.7450 #### [facility] [address] [place], [address] Collected: 07/26/2018 Status: F Source: [place] 10:00 AM [facility] REPOSITORY TYPE CODE TESTS RESULT OUT OF REFERENCE UNITS RANGE LAB U100.0000 [id number] TRANSFUSED PRODUCT: T AND S with Crossmatch, Red Cells COUNT: 1 Performed By: #### U100.0000 #### Non-[facility] - refer to report for specific site HISTORY AND PHYSICAL Observed: 07/26/2018 Status: F Source: [place] EXAM 8:44 AM [facility] REPOSITORY [facility] Medical Records Department [address] [place] [address] History and Physical 07/26/18 0741 MR#: [id number] Acct: [id number] Name: CAROLINE VALVERDE Rep #: [id number] : 1940 78 From: Richie Rice MD PCP: Michael Muse MD Status: ADM KELSIE Y Location: [place] [address] Problem List (1) Syncope and collapse Status: Acute History of Present Illness Date of Admission: 07/26/18 Chief Complaint: Syncope and fall. The patient is a 78 year old F with a significant history of chronic pancytopenia; monoclonal gammopathy nonischemic cardiomyopathy; chronic congestive heart failure [place] [employer] class IV; open heart surgery reportedly with reconstruction of 4 valves; previous clot in his heart; A. fib status post AV node ablation with biventricular ICD placement and left atrial appendage ligation; PFO; hypertension; and hyperlipidemia [place]-term anticoagulation with Coumadin; who presented because of transient loss of consciousness leading to a fall. She presented to the emergency department on the same day of her symptoms and was admitted after midnight. Patient got up from a bed and was going to the bathroom when she passed out and fell. 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 Patient hit her head and sustained an abrasion on the head. Patient denies any nausea, or palpitations before the fall. She did not bite her tongue. Also she denied any bowel or bladder incontinence. Patient reports urinary urgency At the emergency department patient was found to have abnormal urinalysis. Past Medical History Past Medical History (Chronic Problems): Chronic Problems (Last Updated 02/17/18 @ 09:08 by LOGAN Buitrago) Atrial flutter (Chronic) Dilated cardiomyopathy (Chronic) Nonrheumatic mitral valve regurgitation (Chronic) Paroxysmal atrial fibrillation (Chronic) MGUS (monoclonal gammopathy of unknown significance) (Chronic) Pancytopenia (Chronic) Biventricular congestive heart failure (Chronic) Cardiac pacemaker in situ (Chronic) ICD implant January 2007; ICD extraction/upgrade to a biventricular Pacemaker 06/28, #26 Fletcher-[place] annuloplasty ring; Pacemaker generator change 05/22/17; CKD (chronic kidney disease), stage III (Chronic) Chronic systolic congestive heart failure (Chronic) CHF (congestive heart failure) (Chronic) Depression (Chronic) Esophageal reflux (Chronic) Heart valve replaced (Chronic) Mitral AND Tricuspid valves replaced 05/19/09 @ [facility] HTN (hypertension) (Chronic) Primary cardiomyopathy (Chronic) 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) Chronic respiratory failure (Chronic) S/P mitral valve repair (Chronic) 05/19/09, Mitral valve repair with placement of #26 Fletcher- [place] annuloplasty ring, placement of Linn stitch AND tricuspid valve repair with placement of #28 tricuspid annuloplasty ring @ [facility] S/P tricuspid valve repair (Chronic) 05/19/09 @ [facility] Status post ablation of atrial flutter (Chronic) Ventricular tachycardia (Chronic) AICD (automatic cardioverter/defibrillator) present (Chronic) ICD Implant January 2007, ICD Extraction/upgrade to a biventricular pacemaker 06/28; Pulse generator change AND AV node ablation 1/2/13; Pacemaker generator change 05/22/17 Hyperlipidemia (Chronic) Pulmonary embolus (Chronic) Mural thrombus of cardiac apex (Chronic) Medical History: Medical History (Last Reviewed 07/26/18 @ 08:34 by Richie Rice MD) Paroxysmal atrial fibrillation (Chronic) I48.0 MGUS (monoclonal gammopathy of unknown significance) (Chronic) D47.2 Pancytopenia (Chronic) D61.818 Biventricular congestive heart failure (Chronic) I50.9 Cardiac pacemaker in situ (Chronic) Z95.0 ICD implant January 2007; ICD extraction/upgrade to a biventricular Pacemaker 06/28, #26 Fletcher-[place] annuloplasty ring; Pacemaker generator change 05/22/17; CKD (chronic kidney disease), stage III (Chronic) Chronic systolic congestive heart failure (Chronic) I50.22 CHF (congestive heart failure) (Chronic) I50.9 HTN (hypertension) (Chronic) I10 Primary cardiomyopathy (Chronic) I42.8 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) N18.9, D63.1 Chronic respiratory failure (Chronic) J96.10 Ventricular tachycardia (Chronic) I47.2 Hyperlipidemia (Chronic) E78.5 Pulmonary embolus (Chronic) I26.99 Mural thrombus of cardiac apex (Chronic) [id number] Shortness of breath R06.02 History of cardioversion Z98.890 for atrial flutter 04/30, 08/30 Dizziness and giddiness R42 Fatigue R53.83 Syncope R55 history of temporary dialysis Allergies levothyroxine sodium [From Synthroid] Allergy (Severe, Verified 02/13/18 14:45) Pt states it caused renal failure. thyroid, pork [From Perrin Thyroid] Allergy (Severe, Verified 02/13/18 14:45) Unknown Pt states it caused renal failure latex Allergy (Intermediate, Verified 02/13/18 14:45) Rash Home Medications: Ambulatory Orders Medication Instructions Recorded Mirtazapine [Remeron] 45 mg PO QHS 10/03/15 Sertraline HCl [Zoloft] 100 mg PO QHS 10/03/15 Dicyclomine HCl [Bentyl] 10 mg PO DINNER 08/29/17 Surgical History: Surgical History (Last Reviewed 07/26/18 @ 08:35 by Richie Rice MD) S/P mitral valve repair (Chronic) Z98.890 05/19/09, Mitral valve repair with placement of #26 Fletcher- [place] annuloplasty ring, placement of Linn stitch AND tricuspid valve repair with placement of #28 tricuspid annuloplasty ring @ [facility] S/P tricuspid valve repair (Chronic) Z98.890 05/19/09 @ [facility] Status post ablation of atrial flutter (Chronic) Z98.890, Z86.79 AICD (automatic cardioverter/defibrillator) present (Chronic) Z95.810 ICD Implant January 2007, ICD Extraction/upgrade to a biventricular pacemaker 06/28; Pulse generator change AND AV node ablation 09/23/12; Pacemaker generator change 05/22/17 H/O cardiac radiofrequency ablation Z98.890 04/2010 History of cardiac cath Z98.890 1996. (left) 02/2001. 06/2005. (right and left) 03/2009. Hx of cholecystectomy Z90.49 ligation of left atrial appendage Surgical History: cholecystectomy, hysterectomy, pacemaker implantation, tonsillectomy, - - ICD placement. Psychiatric History: Anxiety Smoking Status: Never smoker - *Family History Maternal Family History: Family History (Last Reviewed 07/26/18 @ 08:35 by Richie Rice MD) Father CAD (coronary artery disease) Myocardial infarction Mother CVA (cerebral vascular accident) CHF (congestive heart failure) Daughter Arthritis Atrial fibrillation Hyperlipidemia History Items: Heart Disease Paternal Family History: Family History (Last Reviewed 07/26/18 @ 08:35 by Richie Rice MD) Father CAD (coronary artery disease) Myocardial infarction Mother CVA (cerebral vascular accident) CHF (congestive heart failure) Daughter Arthritis Atrial fibrillation Hyperlipidemia History Items: Heart Disease Review of Systems Constitutional: Denies: Chills, Fever, Weight Change HEENT: Denies: Head Aches, Sinus Congestion, Sinus Drainage Cardiovascular: Reports: Orthopnea, Paroxysmal Noc. Dyspnea. Denies: Chest Pain, Palpitations Respiratory: Reports: Cough, Shortness of Breath. Denies: Sputum production Gastrointestinal: Denies: Abdominal Pain, Nausea, Vomiting Genitourinary: Reports: Urgency. Denies: Dysuria Musculoskeletal: Denies: Joint Pain, Joint Tenderness Skin: Denies: Rash, Wounds Neurological: Denies: Numbness, Tingling, Focal weakness Psychiatric: Denies: Anxiety, Depression, Homicidal Ideations, Suicidal Ideations Hematologic/ Lymphatic: Denies: Easy Bruising, Easy Bleeding VTE Information - Inpt Only VTE Present on Admission: No VTE Mechan Device Prophylaxis: None VTE Pharm Prophylaxis ordered?: Yes Reason prophylaxis not ordered:: Treatment Not Indicated Patient Problems: Active and Suspected Problems (Last Updated 02/17/18 @ 09:08 by LOGAN Buitrago) Syncope and collapse (Acute) - Physical Exam General: Alert, Oriented x3, Cooperative HEENT: Atraumatic, PERRLA, EOMI, Normocephalic Neck: Supple, No JVD, Negative Carotid Bruits Lungs: Wheezes - Right posterior lungs. Cardiovascular: Regular rate Abdomen: Bowel Sounds Present, Soft, Non Tender Extremities: No edema, Capillary Refill Less than 3 Seconds Skin: No rashes, No breakdown Musculoskeletal: No Tenderness to Palpation of Joints or Extremities Neurological: Cranial nerves II-XII grossly intact Psych/Mental Status: Normal Affect, Appropriate Vital Signs Temp Pulse Resp BP Pulse Ox 97.8 F 72 18 94/50 L 100 07/26/18 05:45 07/26/18 06:57 07/26/18 05:45 07/26/18 05:45 07/26/18 05:45 Oxygen Flow Rate (L/min) 3.5 Oxygen Delivery Method Nasal Cannula Weight: 74.3 kg Body Mass Index (BMI) 28.3 Orthostatic Vital Signs Start: 07/26/18 05:50 Freq: q24h Status: Active Protocol: Activity Type Activity Date Activity User E-Sign Co-Sign Detail Recorded Client Recorded Date Recorded By Document 07/26/18 05:45 AML [id number] 07/26/18 05:51 AML Orthostatic Vitals Standing -Blood Pressure (90/60-120/80) 113/60 -Extremity Use Left Arm -Pulse Rate (60-100) 69 Sitting Intake and Output for Last 24 Hours Intake Total 212 / 212 Output Total 400 / 400 Balance -188 / -188 Laboratory Tests Past 24 Hrs WBC Pending RBC Pending Hgb Pending Hct Pending MCV Pending MCH Pending MCHC Pending RDW Pending WBC RBC Hgb Hct MCV MCH MCHC RDW RDW Differential Assessment/Plan All Active Problems (Last Updated 02/17/18 @ 09:08 by LOGAN Buitrago) Syncope and collapse (Acute) Left atrial thrombus (Acute) The patient is a 78 year old F with a significant history of nonischemic cardiomyopathy; chronic congestive heart failure [place] [employer] class IV with ejection fraction of about 20%; open heart surgery reportedly with reconstruction of 4 valves; previous clot in left ventricle; A. fib status post AV node ablation with biventricular ICD placement and left atrial appendage ligation; PFO; hypertension; and hyperlipidemia; long-term anticoagulation with Coumadin; who presented because of transient loss of consciousness with fall ;and also found to have symptomatic cystitis; and elevated BNP with radiographic evidence of likely acute exacerbation of underlying heart failure with reduced ejection fraction. Syncope Etiology is unclear at this time. Differential diagnosis includes dysrhythmia, exacerbation of heart failure, valvular disease or other. Will admit to PCU for telemetry monitoring. With a history of cardiomyopathy and valvular heart disease will check echocardiogram. Her last pacemaker interrogation was on 07/22/1018 of this year. Ordering physician was Dr. Mcallister. Orthostatic blood pressures ordered. Exacerbation of heart failure Review of old records showed echocardiogram on depicted a left ventricular ejection fraction of about 20%. Patient noted to have elevated BNP of 2470.4 on this admission Review of old records show that her BNP on 03/17/2018 was 1048.7. Independent review of chest x-ray showed increased cardiac silhouette with interstitial edema. Initially received 500 mL's bolus at emergency department and then was given Lasix 40 mg IV x1. At home patient takes Lasix 40 mg po daily. Lasix 40 mg IV twice daily ordered. Trend BMP Daily weights Strict intake and output. Cardiac diet. Continue Coreg, Entresto, Imdur and Apresoline. Cystitis Patient noted with abnormal urinalysis Urine cultures are pending Reports urinary urgency. Ceftriaxone started. Trend CBC Chronic A. fib Patient placed on monitor INR subtherapeutic at 1.7. Lovenox bridge on heparin bridge was not started due to worsening thrombocytopenia. She takes Coumadin 4 mg Friday and Saturdays; and on Friday to Fridays she takes 2 mg p.o. Coumadin 6 mg today. Trend INR daily and adjust Coumadin daily as necessary. History of left ventricular thrombus INR not therapeutic. Lovenox bridge on heparin bridge was not started due to worsening thrombocytopenia. Daily INR and titrate Coumadin as necessary. History of monoclonal gammopathy of unknown significance and pancytopenia. Patient noted to have decreased blood counts and all lines. Trend CBC. DVT prophylaxis Not indicated in the setting of Coumadin therapy and Lovenox. Code Visit OBSV E AND M: [id number] Initial observation care L3 07/26/18 0844 <Electronically signed by Richie Rice MD> Date Richie Rice MD Cosigner Signature: Date (if applicable) CC: Michael Muse MD; Richie Rice MD Signed CBC W/DIFF, AUTOMATED Collected: 07/26/2018 Status: F Source: [place] 7:18 AM [facility] REPOSITORY TYPE CODE TESTS RESULT OUT OF RANGE REFERENCE UNITS LAB L100.1000 4.4-11.0 K/mm3 Low WBC 2.6 LAB L100.1200 4.2-5.4 M/mm3 Low RBC 2.27 LAB L100.1300 12.0-15.0 g/dl Low HGB 7.5 LAB L100.1400 37-47 % Low HCT 25.2 LAB L100.1500 81-99 fL High MCV 111.0 LAB L100.1600 27.0-32.0 pg High MCH 33.0 LAB L100.1700 32-36 g/gl Low MCHC 29.8 LAB L100.1810 11.6-14.6 % Normal RDW CV 14.0 LAB L100.1820 35.1-43.9 fl High RDW SD 54.0 LAB L100.1900 150-450 K/mm3 Low PLT 106 LAB L100.2000 6.2-12.0 fl Normal MPV 10.0 LAB L100.2100 47-70 % High NEUT% 78.1 LAB L100.2200 19-41 % Low LY% 9.6 LAB L100.2300 0-10 % Normal MONO% 6.9 LAB L100.2400 0-5 % Normal EO% 5.0 LAB L100.2500 0-1 % Normal BASO% 0.4 LAB L100.2550 0.0-0.9 % Normal IM GRAN % 0.000 Result Comment: IG% - Immature Granulocytes (promyelocytes, myelocytes and metamyelocytes) > 1% indicates that a LEFT SHIFT is Present. LAB L100.2620 2.0-7.7 X10 3/uL Absolute Neut Normal 2.0 LAB L100.2720 0.83-4.51 X10 3/ul Low Absolute Lymph 0.25 LAB L100.5500 ADEQ PLT EST Normal SLT DEC LAB L100.7600 HYPOCHROMASIA Normal 2+ LAB L100.7800 MACROCYTE Normal 2+ LAB L100.8200 OVALOCYTE Normal 1+ Performed By: #### L100.0100 #### [facility] [address] [place], [address] BASIC METABOLIC Collected: 07/26/2018 Status: F Source: [place] PROFILE ([facility]) 7:18 AM [facility] REPOSITORY TYPE CODE TESTS RESULT OUT OF RANGE REFERENCE UNITS LAB L501.0100 74-106 mg/dL Normal GLU 93 Result Comment: Please note revised GLUCOSE reference range effective 2017. LAB L501.1000 7-18 mg/dL High BUN 42 LAB L501.1100 0.55-1.02 mg/dL High CREAT,SERUM 1.76 Result Comment: The validity of the calculated GFR AND GFRAA in patients over 70 years has not been determined. Clinical correlation is essential. LAB L501.1110 >60 mL/min Low EST GFR 30 Result Comment: Non- GFR Calc LAB L501.1115 >60 mL/min Low EST GFR - AA 36 Result Comment: GFR Calc LAB L501.1255 ml/min Normal Estimated CRCL 23.12 LAB L501.1300 10-20 RATIO High BUN/CRE 23.9 LAB L501.2200 8.5-10 mg/dL Low .1 CA 7.8 LAB L501.5300 136-14 mmol/L Normal 5 NA 144 LAB L501.5600 3.5-5. mmol/L Normal 1 K 4.1 LAB L501.5900 98-107 mmol/L High CL 115 LAB L501.6100 21.0-3 mmol/L Normal 2.0 CO2 23.0 LAB L501.6200 5-15 Normal GAP 6 Performed By: #### L500.2500 #### [facility] [address] [place], [address] EMERGENCY DEPARTMENT Observed: 07/26/2018 Status: F Source: [place] SUMMARY 1:45 AM [facility] REPOSITORY [facility] Medical Records Department [address] [place] [address] Emergency Department Summary 07/25/18 2248 MR#: [id number] Acct: [id number] Name: CAROLINE VALVERDE Rep #: [id number] : 1940 78 From: Rian Lozoya MD PCP: Michael Muse MD Status: ADM IN - ER Visit Summary Date of Service: 07/25/18 Chief Complaint: Fall, syncope History of Present Illness: The patient is a 78 F who has history of chronic dysrhythmia status post pacemaker and defibrillator placement presents to the emergency department after syncopal event. The patient normally ambulates with a walker. She is on 3 L of home oxygen due to history of congestive heart failure. Tonight, she states she was in her normal state of health. She went to get out of her bed to use the restroom. She states she stood up and was ambulating with her walker and then collapsed in her bathroom. She struck her head. She did lose consciousness. She denies any chest pain. She has not had fever chills. She states otherwise, she is been in her normal state of health. She states she never passed out before. The last time her pacemaker was interrogated was in March of this year. Physical Examination: Vital signs reviewed General: Well-nourished, well-developed Head: Normocephalic, contusion over the right parietal area without step-off or deformity Eyes: Pupils equal and reactive, extraocular muscles intact Neck, supple, no lymphadenopathy Heart: Regular rate and rhythm Respiratory: No distress, crackles in the bases of both lungs Abdomen: Soft, nontender, nondistended, no peritoneal signs Back: Nontender Extremities: Nontender, no edema, no cords Skin: Normal color no rash Neuro: Alert and oriented, no focal or lateralizing deficits Test Results: [] Emergency Department Course and Treatment: The patient presents with dyspnea and a syncopal event. It happened after she started walking. On arrival, she does have some borderline blood pressure. She was given IV fluids. Orthostatics were obtained which were negative. Screening labs do show chronic pancytopenia. Her INR was mildly supratherapeutic at 1.7. Cardiac enzymes are normal. Her chest x-ray does show evidence of cardiomegaly and volume overload. I obtain a head CT given her fall and the fact she is on Coumadin. This shows no acute intracranial abnormality. On reevaluation, the patient is more comfortable, but given her significant cardiac history, syncopal episode, and evidence of decompensated congestive heart failure I do feel that she will need admission for cardiac monitoring and likely investigation of her pacemaker device. The patient was comfortable with this plan of care and will be admitted. Treatment Plan: [] Disposition: Admission Impression: 1. Syncope 2. Decompensated CHF This note was generated with [employer] dictation software. It may contain incorrect words, spelling, and punctuation that were not noted in review of the chart prior to signing ED Disposition - Plan for ED Patient: Chief Complaint: Fall Referrals: Landry Muse MD [Primary Care Provider] - What to do if you have Problems For any increased pain, shortness of breath, bleeding, nausea or vomiting, chest pain, or any unexpected problems, contact your Primary Care Provider. Call [facility] ([phone]) or report to the closest Emergency Room. Call 911 if necessary. 07/26/18 0145 <Electronically signed by Rian Lozoya MD> Date Rian Lozoya MD Cosigner Signature (If Indicated): Date CC: Michael Muse MD URINALYSIS, COMPLETE Collected: 07/26/2018 Status: F Source: [place] 12:55 AM [facility] REPOSITORY Order Comment: Order Date: 07/25/18 Has pt arrived? Y How was Urine Obtained? CLEAN CATCH TYPE CODE TESTS RESULT OUT OF RANGE REFERENCE UNITS LAB L400.3000 Yellow COLOR Normal Yellow LAB L400.3050 Clear Normal CLARITY Cloudy LAB L400.3200 Normal mg/dl Normal GLUCOSE, UR Normal LAB L400.3300 Negative mg/dL Normal BILIRUBIN URINE Negative LAB L400.3400 Negative mg/dl Normal KETONE UR Negative LAB L400.3465 1.002-1.030 Normal SP.GR. DIPSTX 1.015 LAB L400.3550 5.0 - 8.0 pH UR Normal 6.0 LAB L400.3600 Negative mg/dl High PROT 30 DIPSTX LAB L400.3700 Normal mg/dl Normal UROBILI Normal LAB L400.3750 Negative High NITRITE UR Positive LAB L400.3780 Negative /ul Normal OCCULT BLOOD-UR Negative LAB L400.3800 Negative /ul High LEUK ESTERASE 500 LAB L400.4050 0-5 /hpf WBC Normal 10-25 SEEN LAB L400.4100 0-5 /hpf 0 Normal RBC-UA SEEN LAB L400.4150 5-10 /hpf SQUAM Normal EPI 5-10 SEEN LAB L400.4300 None Seen /hpf 3+ Normal BACTERIA LAB L400.4350 <or=2+ /hpf 0 Normal MUCUS, URINE SEEN Performed By: #### L400.0001 #### [facility] [address] [place], [address] Observed: 07/26/2018 Status: F Source: [place] CULTURE, URINE 12:55 AM [facility] REPOSITORY Order Date: 07/26/18 Comments: SPECIMEN IN LAB Urine Culture ORGANISM 1: Escherichia coli [place] Count >100,000 Escherichia coli: REACTION Amoxacillin/Clavulanic Acid $ <=2 S Ampicillin $ <=2 S Ampicillin/Sulbactam $ <=2 S Cefazolin $ <=4 S Cefepime $ <=1 S Ceftriaxone $ <=1 S Ciprofloxacin $ <=0.25 S ESBL - Ertapenim $$$ <=0.5 S Gentamicin $ <=1 S Imipenem *NF <=0.25 S Levofloxacin $ <=0.12 S Nitrofurantoin $ <=16 S Piperacillin/Tazobactam $$ <=4 S Tobramycin $ <=1 S Trimethoprim/Sulfametho $ <=20 S (NF) indicates non-formulary drug at [facility]. Approval by Infectious Disease Specialist required before non-formulary drugs may be ordered and/or dispensed. Performed By: #### M100.0650 #### [facility] [place], [address] CBC W/DIFF, AUTOMATED Collected: 07/25/2018 Status: F Source: [place] 11:20 PM [facility] REPOSITORY TYPE CODE TESTS RESULT OUT OF RANGE REFERENCE UNITS LAB L100.1000 4.4-11.0 K/mm3 Low WBC 3.8 LAB L100.1200 4.2-5.4 M/mm3 Low RBC 2.39 LAB L100.1300 12.0-15.0 g/dl Low HGB 8.0 LAB L100.1400 37-47 % Low HCT 26.8 LAB L100.1500 81-99 fL High MCV 112.1 LAB L100.1600 27.0-32.0 pg High MCH 33.5 LAB L100.1700 32-36 g/gl Low MCHC 29.9 LAB L100.1810 11.6-14.6 % Normal RDW CV 14.0 LAB L100.1820 35.1-43.9 fl High RDW SD 55.0 LAB L100.1900 150-450 K/mm3 Low PLT 134 LAB L100.2000 6.2-12.0 fl Normal MPV 9.8 LAB L100.2100 47-70 % Normal NEUT% 66.7 LAB L100.2200 19-41 % Low LY% 13.6 LAB L100.2300 0-10 % High MONO% 11.2 LAB L100.2400 0-5 % High EO% 7.4 LAB L100.2500 0-1 % Normal BASO% 0.8 LAB L100.2550 0.0-0.9 % Normal IM GRAN % 0.300 Result Comment: IG% - Immature Granulocytes (promyelocytes, myelocytes and metamyelocytes) > 1% indicates that a LEFT SHIFT is Present. LAB L100.2620 2.0-7.7 X10 3/uL Normal Absolute Neut 2.5 LAB L100.2720 0.83-4.51 X10 3/ul Low Absolute Lymph 0.51 Performed By: #### L100.0100 #### [facility] [address] [place], [place], [address] COMPREHENSIVE METABOLIC Collected: 07/25/2018 Status: F Source: [place] [facility] 11:20 PM [facility] REPOSITORY TYPE CODE TESTS RESULT OUT OF RANGE REFERENCE UNITS LAB L501.0100 74-106 mg/dL High GLU 135 Result Comment: Fasting Glucose result greater than or equal to 126 mg/dL suggests DIABETES MELLITUS per A.D.A. criteria. Please note revised GLUCOSE reference range effective 2017. LAB L501.1000 7-18 mg/dL High BUN 41 LAB L501.1100 0.55-1.02 mg/dL High CREAT,SERUM 1.89 Result Comment: The validity of the calculated GFR AND GFRAA in patients over 70 years has not been determined. Clinical correlation is essential. LAB L501.1110 >60 mL/min Low EST GFR 27 Result Comment: Non- GFR Calc LAB L501.1115 >60 mL/min Low EST GFR - AA 33 Result Comment: GFR Calc LAB L501.1255 ml/min Normal Estimated CRCL 21.53 LAB L501.1300 10-20 RATIO High BUN/CRE 21.7 LAB L501.1500 6.4-8. g/dL Normal 2 T PROT 6.5 LAB L501.1800 3.2-5. g/dL Normal 0 ALB 3.3 LAB L501.1950 2.2-4. g/dL Normal 2 GLOB 3.2 LAB L501.2000 0.9-2. RATIO Normal 4 A/G 1.0 LAB L501.2200 8.5-10 mg/dL Low .1 CA 8.1 LAB L501.4100 15-37 U/L Low AST 10 LAB L501.4305 45-117 U/L Normal ALK P 99 LAB L501.4405 13-56 U/L Low ALT 9 LAB L501.4600 0.20-1 mg/dL Normal .00 T BILI 0.40 LAB L501.5300 136-14 mmol/L Normal 5 NA 143 LAB L501.5600 3.5-5. mmol/L Normal 1 K 4.3 LAB L501.5900 98-107 mmol/L High CL 112 LAB L501.6100 21.0-3 mmol/L Normal 2.0 CO2 27.0 LAB L501.6200 5-15 Low GAP 4 Performed By: #### L500.4050, L501.4010 #### [facility] [address] [place], [address] TROPONIN-I Collected: 07/25/2018 Status: F Source: [place] 11:20 PM [facility] REPOSITORY TYPE CODE TESTS RESULT OUT OF RANGE REFERENCE UNITS LAB L501.4010 <0.045 ng/mL Normal < 0.015 TROPONIN-I Result Comment: TROPONIN-I EXPECTED VALUES <0.045 Negative 0.045 - 0.590 Consistent with Cardiac Damage > OR = 0.600 Critical Value Not every elevated troponin is indicative of VT. These values should be used with clinical judgement in examining the patient's clinical picture for diagnosis. To establish a diagnosis of VT versus myocardial injury, there must be a demonstrated rise and/or fall in the troponin values, in addition to ischemic symptoms, EKG changes, new regional wall motion abnormality, and/or angiographical evidence. PLEASE NOTE: REFERENCE RANGES EDITED 18 Performed By: #### L500.4050, L501.4010 #### [facility] [address] [place], [address] BNP,B-TYPE NATRIURETIC Collected: 07/25/2018 Status: F Source: [place] PEPTIDE 11:20 PM [facility] REPOSITORY TYPE CODE TESTS RESULT OUT OF RANGE REFERENCE UNITS LAB L503.6620 0-100 pg/mL High B-TYPE 2470.4 ADELAIDA PEP Performed By: #### L503.6620 #### [facility] [address] [place], [address] PROTHROMBIN TIME W/INR Collected: 07/25/2018 Status: F Source: [place] 11:20 PM [facility] REPOSITORY TYPE CODE TESTS RESULT OUT OF RANGE REFERENCE UNITS LAB L300.4150 11.7-14.9 SECONDS High PROTIME 20.2 LAB L300.4200 Normal INR 1.7 Performed By: #### L300.3900 #### [facility] [address] [place], [address] CHEST 1 VIEW Observed: 07/25/2018 Status: F Source: [place] (PORTABLE) 10:47 PM [facility] REPOSITORY [facility] Imaging Services [address] [place] [address] Chest 1 View (Portable) MR#: [id number] Acct: [id number] Name: CAROLINE VALVERDE Rep #: [id number] : 1940 F 78 From: Carmela Sandra MD PCP: Michael Muse MD Status: REG ER Study: Chest 1 View (Portable) Date of Exam: 07/25/18 Exam# [id number] Ordering Dr: Rian Lozoya MD STUDY: X-RAY CHEST REASON FOR EXAM: Female, 78 years old. Recent fall possibly secondary to syncope. TECHNIQUE: Single AP portable view of the chest. COMPARISON: January 25, 2018. FINDINGS: Patient has had a sternotomy. Cardiac monitoring leads are present. Patient has a left-sided intracardiac defibrillator and pacemaker. The lungs are hyperexpanded. There is right-sided subsegmental atelectasis and/or airspace disease. There is a small right-sided pleural effusion. There is moderate cardiac enlargement. Normal mediastinum and mariano. Normal visualized pulmonary arteries. There is atherosclerotic calcification of the aortic arch with tortuosity. There is demineralization of the osseous structures. There appears to be an ununited fracture of the proximal right humerus. This appearance is similar to the previous radiograph. There is no demonstrated abnormality of the visualized soft tissue structures of the upper abdomen. RAD/Chest 1 View (Portable) IMPRESSION: 1. Patchy right-sided airspace consolidation and/or atelectasis. 2. Cardiomegaly. Electronically Signed: Carmela Sandra MD at 23:40 EDT , Service support , CC: Michael Muse MD; Rian Lozoya MD Second Chef: Signed BRAIN/HEAD WITHOUT Observed: 07/25/2018 Status: F Source: [place] CONTRAST 10:47 PM [facility] REPOSITORY [facility] Imaging Services [address] [place] [address] Brain/Head without Contrast MR#: [id number] Acct: [id number] Name: CAROLINE VALVERDE Rep #: [id number] : 1940 F 78 From: Mark Anthony Pizarro PCP: Micheal Muse MD Status: REG ER Study: Brain/Head without Contrast Date of Exam: 07/25/18 Exam# [id number] Ordering Dr: Rian Lozoya MD STUDY: CT BRAIN WITHOUT CONTRAST REASON FOR EXAM: Female, 78 years old. Right-sided head pain after fall. Patient takes Coumadin. History of uterine cancer. RADIATION DOSAGE (If Supplied By Facility): CTDIvol = ( 44.99 ) mGy, DLP = ( 829.85 ) mGycm TECHNIQUE: Transaxial CT imaging of the brain was performed without administration of intravenous contrast material. Individualized dose optimization techniques were used for this CT. COMPARISON: March 21, 2016. FINDINGS: Right parietal scalp swelling. Normal calvarium. Normal size ventricles and extra-axial spaces for the patient's age. Normal white matter tracts of the cerebral hemispheres. Normal basal ganglia and thalami. Normal brainstem. Normal cerebellum. There is no intracranial hemorrhage. There are no findings of an acute ischemic infarction. Normal visualized paranasal sinuses. CT/Brain/Head without Contrast IMPRESSION: Normal unenhanced CT scan of the brain for age. Right parietal scalp swelling. Electronically Signed: Mark Anthony Pizarro MD at 0:22 EDT , Service support , CC: Michael Muse MD; Rian Lozoya MD Second Chef: Signed PACEMAKER CHECK Observed: 07/23/2018 Status: F Source: [place] 10:13 AM [facility] REPOSITORY [facility] [address] [place] [address] Pacemaker Check Date of Service: 07/22/181809 MR#: [id number] Acct: [id number] Name: CAROLINE VALVERDE Rep #: [id number] : 1940 From: Angelica Kim Age/Sex: 78/F Location: [facility] Status: Signed Billing Codes ICD Device Billing: ICD Dev Interrogate (Rmt) 07/22/181811 <Electronically signed by Angelica Kim > Date Angelica Kim 07/23/18 1013<Electronically signed by Carlos Mcallister MD> Cosigner Signature: Date (if applicable) Carlos Mcallister MD CC: PROTHROMBIN TIME W/INR Collected: 07/20/2018 Status: F Source: [place] 10:40 AM [facility] REPOSITORY TYPE CODE TESTS RESULT OUT OF RANGE REFERENCE UNITS LAB L300.4150 11.7-14.9 SECONDS High PROTIME 24.7 LAB L300.4200 Normal INR 2.2 Performed By: #### L300.3900 #### [facility] [address] [place], [address] PROTHROMBIN TIME W/INR Collected: 07/15/2018 Status: F Source: [place] 10:50 AM [facility] REPOSITORY Order Comment: Result obtained is for confirmation testing of Fingerstick PT/INR Specimen # [id number] . 07/15/18 1106 DMILLER2 THIS CONFIRMATION SPECIMEN RESULT IS FROM VENOUS BLOOD. TYPE CODE TESTS RESULT OUT OF REFERENCE UNITS RANGE LAB L300.4150 11.7-14.9 SECONDS High PROTIME 48.4 LAB L300.4200 High alert INR 5.2 Result Comment: CRITICAL VALUE VERIFIED. CALLED TO RITA AT [facility] 07/15/18 1132 Francisca Mayberry. RESULTS READ BACK BY SAME . Performed By: #### L300.3900 #### [facility] [address] [place], [address] PROTIME W/INR Collected: 07/15/2018 Status: F Source: [place] FINGERSTICK 10:36 AM [facility] REPOSITORY TYPE CODE TESTS RESULT OUT OF REFERENCE UNITS RANGE LAB L9200.1001 11.9-14.4 SEC High PROTIME ISTAT 64.8 Result Comment: Reference Range 11.9 - 14.4 LAB L9200.2000 High alert INR ISTAT 5.90 Result Comment: Critical Value > 3.5 Performed By: #### L9200.0000 #### [facility] Point of Care [address] [place], [place] [address] PROTHROMBIN TIME W/INR Collected: 07/06/2018 Status: F Source: [place] 11:45 AM [facility] REPOSITORY Order Comment: Result obtained is for confirmation testing of Fingerstick PT/INR Specimen # [id number] . 07/06/18 1153 RHICKS THIS CONFIRMATION SPECIMEN RESULT IS FROM VENOUS BLOOD. TYPE CODE TESTS RESULT OUT OF REFERENCE UNITS RANGE LAB L300.4150 11.7-14.9 SECONDS High PROTIME 36.1 LAB L300.4200 High alert INR 3.6 Result Comment: CRITICAL VALUE VERIFIED. CALLED TO NAVIN SCHAFER 07/06/18 1222 Steven Chavez. RESULTS READ BACK BY SAME. Performed By: #### L300.3900 #### [facility] [address] [place], [address] PROTIME W/INR Collected: 07/06/2018 Status: F Source: [place] FINGERSTICK 11:23 AM [facility] REPOSITORY TYPE CODE TESTS RESULT OUT OF REFERENCE UNITS RANGE LAB L9200.1001 11.9-14.4 SEC High PROTIME ISTAT 41.3 Result Comment: Reference Range 11.9 - 14.4 LAB L9200.2000 High alert INR ISTAT 3.70 Result Comment: Critical Value > 3.5 Performed By: #### L9200.0000 #### [facility] Point of Care [address] [place] [address] PROTIME W/INR Collected: 06/29/2018 Status: F Source: [place] FINGERSTICK 10:32 AM [facility] REPOSITORY TYPE CODE TESTS RESULT OUT OF REFERENCE UNITS RANGE LAB L9200.1001 11.9-14.4 SEC High PROTIME ISTAT 36.1 Result Comment: Reference Range 11.9 - 14.4 LAB L9200.2000 Normal INR ISTAT 3.20 Result Comment: Critical Value > 3.5 Performed By: #### L9200.0000 #### [facility] Point of Care [address] [place] [address] PROTIME W/INR Collected: 06/11/2018 Status: F Source: [place] FINGERSTICK 10:30 AM [facility] REPOSITORY TYPE CODE TESTS RESULT OUT OF REFERENCE UNITS RANGE LAB L9200.1001 11.9-14.4 SEC High PROTIME ISTAT 20.1 Result Comment: Reference Range 11.9 - 14.4 LAB L9200.2000 Normal INR ISTAT 1.70 Result Comment: Critical Value > 3.5 Performed By: #### L9200.0000 #### [facility] Point of Care [address] [place] [address] PROTIME W/INR Collected: 06/04/2018 Status: F Source: [place] FINGERSTICK 11:05 AM [facility] REPOSITORY TYPE CODE TESTS RESULT OUT OF REFERENCE UNITS RANGE LAB L9200.1001 11.9-14.4 SEC High PROTIME ISTAT 21.4 Result Comment: Reference Range 11.9 - 14.4 LAB L9200.2000 Normal INR ISTAT 1.80 Result Comment: Critical Value > 3.5 Performed By: #### L9200.0000 #### [facility] Point of Care [address] [place] [address] PROTHROMBIN TIME W/INR Collected: 05/28/2018 Status: F Source: [place] 11:55 AM [facility] REPOSITORY Order Comment: TO CONFIRM LOW FINGERSTICK PT/IRN RESULT. THIS IS FIRST TIME WE HAVE DONE FINGERSTICK ON THIS PATIENT AND RESULTS SEEM QUESTIONABLE TYPE CODE TESTS RESULT OUT OF RANGE REFERENCE UNITS LAB L300.4150 11.7-14.9 SECONDS High PROTIME 16.5 LAB L300.4200 Normal INR 1.3 Performed By: #### L300.3900 #### [facility] [address] [place] [place], [place], [address] PROTIME W/INR Collected: 05/28/2018 Status: F Source: [place] FINGERSTICK 11:46 AM [facility] REPOSITORY TYPE CODE TESTS RESULT OUT OF REFERENCE UNITS RANGE LAB L9200.1001 11.9-14.4 SEC High PROTIME ISTAT 14.8 Result Comment: Reference Range 11.9 - 14.4 LAB L9200.2000 Normal INR ISTAT 1.20 Result Comment: Critical Value > 3.5 Performed By: #### L9200.0000 #### [facility] Point of Care [address] [place], [place] [address] CBC W/DIFF, AUTOMATED Collected: 05/19/2018 Status: F Source: [place] 11:10 AM [facility] REPOSITORY Order Comment: Reason for Laboratory Test ROUTINE TYPE CODE TESTS RESULT OUT OF RANGE REFERENCE UNITS LAB L100.1000 4.4-11.0 K/mm3 Low WBC 2.5 LAB L100.1200 4.2-5.4 M/mm3 Low RBC 2.86 LAB L100.1300 12.0-15.0 g/dl Low HGB 9.3 LAB L100.1400 37-47 % Low HCT 29.7 LAB L100.1500 81-99 fL High MCV 103.8 LAB L100.1600 27.0-32.0 pg High MCH 32.5 LAB L100.1700 32-36 g/gl Low MCHC 31.3 LAB L100.1810 11.6-14.6 % Normal RDW CV 14.3 LAB L100.1820 35.1-43.9 fl High RDW SD 54.3 LAB L100.1900 150-450 K/mm3 Low PLT 123 LAB L100.2000 6.2-12.0 fl Normal MPV 10.1 LAB L100.2100 47-70 % Normal NEUT% 53.5 LAB L100.2200 19-41 % Normal LY% 26.7 LAB L100.2300 0-10 % Normal MONO% 8.9 LAB L100.2400 0-5 % High EO% 10.5 LAB L100.2500 0-1 % Normal BASO% 0.4 LAB L100.2550 0.0-0.9 % Normal IM GRAN % 0.000 Result Comment: IG% - Immature Granulocytes (promyelocytes, myelocytes and metamyelocytes) > 1% indicates that a LEFT SHIFT is Present. LAB L100.2620 2.0-7.7 X10 3/uL Low Absolute Neut 1.3 LAB L100.2720 0.83-4.51 X10 3/ul Low Absolute Lymph 0.66 Performed By: #### L100.0100, L500.4050 #### [facility] [address] [place], [address] COMPREHENSIVE METABOLIC Collected: 05/19/2018 Status: F Source: [facility] 11:10 AM [facility] REPOSITORY Order Comment: Reason for Laboratory Test ROUTINE TYPE CODE TESTS RESULT OUT OF RANGE REFERENCE UNITS LAB L501.0100 74-106 mg/dL Normal GLU 87 Result Comment: Please note revised GLUCOSE reference range effective 2017. LAB L501.1000 7-18 mg/dL High BUN 53 LAB L501.1100 0.55-1.02 mg/dL High CREAT,SERUM 1.77 Result Comment: The validity of the calculated GFR AND GFRAA in patients over 70 years has not been determined. Clinical correlation is essential. LAB L501.1110 >60 mL/min Low EST GFR 30 Result Comment: Non- GFR Calc LAB L501.1115 >60 mL/min Low EST GFR - AA 36 Result Comment: GFR Calc LAB L501.1300 10-20 RATIO High BUN/CRE 29.9 LAB L501.1500 6.4-8.2 g/dL T Normal PROT 6.6 LAB L501.1800 3.2-5.0 g/dL Normal ALB 3.6 LAB L501.1950 2.2-4.2 g/dL Normal GLOB 3.0 LAB L501.2000 0.9-2.4 RATIO Normal A/G 1.2 LAB L501.2200 8.5-10.1 mg/dL Low CA 8.3 LAB L501.4100 15-37 U/L Normal AST 15 LAB L501.4305 45-117 U/L Normal ALK P 100 LAB L501.4405 13-56 U/L Low ALT 12 LAB L501.4600 0.20-1.00 mg/dL T Normal BILI 0.50 LAB L501.5300 136-145 mmol/L NA Normal 142 LAB L501.5600 3.5-5.1 mmol/L K Normal 4.8 LAB L501.5900 98-107 mmol/L High CL 110 LAB L501.6100 21.0-32.0 mmol/L Normal CO2 24.0 LAB L501.6200 5-15 Normal GAP 8 Performed By: #### L100.0100, L500.4050 #### [facility] [address] [place], [address] PROTHROMBIN TIME W/INR Collected: 05/19/2018 Status: F Source: [place] 11:10 AM [facility] REPOSITORY TYPE CODE TESTS RESULT OUT OF RANGE REFERENCE UNITS LAB L300.4150 11.7-14.9 SECONDS High PROTIME 19.4 LAB L300.4200 Normal INR 1.6 Performed By: #### L300.3900 #### [facility] [address] [place], [address] VIANEY + PROTEIN ELECT, Collected: 05/19/2018 Status: F Source: [place] SERUM 11:10 AM [facility] REPOSITORY Order Comment: Reason for Laboratory Test ROUTINE Is Patient Fasting? N TYPE CODE TESTS RESULT OUT OF RANGE REFERENCE UNITS LAB L3100.3500 6.0-8.5 g/dL Normal PROTEIN,TOTAL 6.1 LAB L3200.5909 254-6204 mg/dL Normal IMMUNO G 1037 LAB L3200.1400 64-422 mg/dL Normal IMMUNO A 299 LAB L3200.1500 26-217 mg/dL Normal IMMUNOGL M 29 LAB L3200.1510 2.9-4.4 g/dL Normal ALBUMIN 3.5 LAB L3200.1520 0.0-0.4 g/dL Normal XZTCU-1-PCCX 0.2 LAB L3200.1530 0.4-1.0 g/dL Normal NGTDU-8-OXNY 0.5 LAB L3200.1540 0.7-1.3 g/dL Normal BETA GLOBULIN 0.8 LAB L3200.1550 0.4-1.8 g/dL Normal GAMMA GLOBULIN 1.0 LAB L3200.1560 Not Observed g/dL High M-SPIKE 0.3 LAB L3200.1570 2.2-3.9 g/dL Normal GLOBULIN, 2.6 TOTAL LAB L3200.1580 0.7-1.7 Normal A/G RATIO 1.4 LAB L3200.1590 . Normal VIANEY RESULT,S Comment Result Comment: Immunofixation shows IgG monoclonal protein with kappa light chain specificity. LAB L3200.1594 . Normal NOTE: Comment Result Comment: Protein electrophoresis scan will follow via computer, mail, or wood last maker delivery. Performed By: #### L3100.3425, L3100.3450 #### [facility] (refer to report for specific site) refer to report for address and phone number PROTEIN ELECTROPH, S Collected: 05/19/2018 Status: F Source: [place] 11:10 AM [facility] REPOSITORY Order Comment: Reason for Laboratory Test ROUTINE Is Patient Fasting? N TYPE CODE TESTS RESULT OUT OF RANGE REFERENCE UNITS LAB L3100.3600 . Test Normal ALBUMIN not performed Result Comment: Test not performed LAB L3100.3700 . Normal Test not ALPHA-1 GLOBUL performed Result Comment: Test not performed LAB L3100.3800 . Normal Test not ALPHA-2 GLOBUL performed Result Comment: Test not performed LAB L3100.3900 . Normal BETA Test not GLOBULIN performed Result Comment: Test not performed LAB L3100.4000 . Normal GAMMA Test not GLOBULIN performed Result Comment: Test not performed LAB L3100.4110 . M-SPIKE Test Normal not performed LAB L3100.4200 . GLOBULIN, TOTAL Test Normal not performed LAB L3100.4300 . A/G RATIO Test Normal not performed LAB L3100.4320 . INTERPRETATION Normal Comment Result Comment: Protein electrophoresis scan will follow via computer, mail, or wood last maker delivery. Performed at: [facility] [address] [id number] Professor Of Legal Studies: Fransisco Wade PhD, Phone: [phone] LAB L3302.1208 . Normal Test not NOTE: performed Performed By: #### L3100.3425, L3100.3450 #### [facility] (refer to report for specific site) refer to report for address and phone number PROTHROMBIN TIME W/INR Collected: 04/27/2018 Status: F Source: [place] 11:30 AM [facility] REPOSITORY TYPE CODE TESTS RESULT OUT OF RANGE REFERENCE UNITS LAB L300.4150 11.7-14.9 SECONDS High PROTIME 29.6 LAB L300.4200 Normal INR 2.8 Performed By: #### L300.3900 #### [facility] [address] [place], [address] PACEMAKER CHECK Observed: 04/22/2018 Status: F Source: ERICA 4:33 PM [facility] REPOSITORY [facility] [address] [place] [address] Pacemaker Check Date of Service: 04/10/181716 MR#: [id number] Acct: [id number] Name: CAROLINE VALVERDE Rep #: [id number] : 1940 From: Angelica Kim Age/Sex: 77/F Location: [facility] [place] Status: Signed Billing Codes ICD Device Billing: ICD Dev Interrogate (Rmt) 04/10/18 1719 <Electronically signed by Angelica Kim > Date Angelica Kim 04/22/18 1633<Electronically signed by Otilio Mitchell MD> Nando Signature: Date (if applicable) Otilio Mitchell MD CC: BASIC METABOLIC Collected: 04/08/2018 Status: F Source: [place] PROFILE (BMP) 10:50 AM [facility] REPOSITORY TYPE CODE TESTS RESULT OUT OF RANGE REFERENCE UNITS LAB L501.0100 74-106 mg/dL Normal GLU 96 Result Comment: Please note revised GLUCOSE reference range effective 2017. LAB L501.1000 7-18 mg/dL High BUN 45 LAB L501.1100 0.55-1.02 mg/dL High CREAT,SERUM 1.72 Result Comment: The validity of the calculated GFR AND GFRAA in patients over 70 years has not been determined. Clinical correlation is essential. LAB L501.1110 >60 mL/min Low EST GFR 31 Result Comment: Non- GFR Calc LAB L501.1115 >60 mL/min Low EST GFR - AA 37 Result Comment: GFR Calc LAB L501.1300 10-20 RATIO High BUN/CRE 26.2 LAB L501.2200 8.5-10.1 mg/dL Low CA 8.3 LAB L501.5300 136-145 mmol/L NA Normal 145 LAB L501.5600 3.5-5.1 mmol/L K Normal 4.6 LAB L501.5900 98-107 mmol/L High CL 109 LAB L501.6100 21.0-32.0 mmol/L Normal CO2 30.0 LAB L501.6200 5-15 Normal GAP 6 Performed By: #### L500.2500 #### [facility] [address], [place], [address] PROTHROMBIN TIME W/INR Collected: 04/08/2018 Status: F Source: [place] 10:50 AM [facility] REPOSITORY TYPE CODE TESTS RESULT OUT OF RANGE REFERENCE UNITS LAB L300.4150 11.7-14.9 SECONDS High PROTIME 22.7 LAB L300.4200 Normal INR 2.0 Performed By: #### L300.3900 #### [facility] [address] [place], [address] PROTHROMBIN TIME W/INR Collected: 03/24/2018 Status: F Source: [place] 10:30 AM [facility] REPOSITORY Order Comment: HOMEDRAW TYPE CODE TESTS RESULT OUT OF RANGE REFERENCE UNITS LAB L300.4150 11.7-14.9 SECONDS High PROTIME 22.0 LAB L300.4200 Normal INR 1.9 Performed By: #### L300.3900 #### [facility] [address] [place], [address] PROTHROMBIN TIME W/INR Collected: 03/17/2018 Status: F Source: [place] 11:00 AM [facility] REPOSITORY TYPE CODE TESTS RESULT OUT OF RANGE REFERENCE UNITS LAB L300.4150 11.7-14.9 SECONDS High PROTIME 21.1 LAB L300.4200 Normal INR 1.8 Performed By: #### L300.3900 #### [facility] [address] [place], [address] COMPREHENSIVE METABOLIC Collected: 03/17/2018 Status: F Source: [facility] 11:00 AM [facility] REPOSITORY Order Comment: NOT FASTING Order Date: 03/05/18 Order Info: [id number] - CMP Order Info: 3016-3 - TSH TYPE CODE TESTS RESULT OUT OF RANGE REFERENCE UNITS LAB L501.0100 74-106 mg/dL High GLU 116 Result Comment: Fasting Glucose result from 100 to 125 mg/dL suggests IMPAIRED HOMEOSTASIS per A.D.A. criteria. Please note revised GLUCOSE reference range effective 2017. LAB L501.1000 7-18 mg/dL High BUN 41 LAB L501.1100 0.55-1.02 mg/dL High CREAT,SERUM 1.63 Result Comment: The validity of the calculated GFR AND GFRAA in patients over 70 years has not been determined. Clinical correlation is essential. LAB L501.1110 >60 mL/min Low EST GFR 33 Result Comment: Non- GFR Calc LAB L501.1115 >60 mL/min Low EST GFR - AA 39 Result Comment: GFR Calc LAB L501.1300 10-20 RATIO High BUN/CRE 25.2 LAB L501.1500 6.4-8.2 g/dL T Normal PROT 6.7 LAB L501.1800 3.2-5.0 g/dL Normal ALB 3.3 LAB L501.1950 2.2-4.2 g/dL Normal GLOB 3.4 LAB L501.2000 0.9-2.4 RATIO Normal A/G 1.0 LAB L501.2200 8.5-10.1 mg/dL Low CA 8.2 LAB L501.4100 15-37 U/L Normal AST 17 LAB L501.4305 45-117 U/L High ALK P 120 LAB L501.4405 13-56 U/L Normal ALT 13 LAB L501.4600 0.20-1.00 mg/dL T Normal BILI 0.50 LAB L501.5300 136-145 mmol/L NA Normal 141 LAB L501.5600 3.5-5.1 mmol/L K Normal 3.7 LAB L501.5900 98-107 mmol/L CL Normal 106 LAB L501.6100 21.0-32.0 mmol/L Normal CO2 29.0 LAB L501.6200 5-15 Normal GAP 6 Performed By: #### L500.4050, L501.9520, L100.0100 #### [facility] [address] [place], [address] THYROID STIM HORMONE Collected: 03/17/2018 Status: F Source: [place] (TSH) 11:00 AM [facility] REPOSITORY Order Comment: NOT FASTING Order Date: 03/05/18 Order Info: [id number] - CMP Order Info: 3016-3 - TSH TYPE CODE TESTS RESULT OUT OF RANGE REFERENCE UNITS LAB L501.9520 0.358-3.74 uIU/mL High TSH 6.85 Performed By: #### L500.4050, L501.9520, L100.0100 #### [facility] [address] [place], [address] CBC W/DIFF, AUTOMATED Collected: 03/17/2018 Status: F Source: [place] 11:00 AM [facility] REPOSITORY Order Comment: Order Date: 03/05/18 Order Info: 0184-1 - CBCD TYPE CODE TESTS RESULT OUT OF RANGE REFERENCE UNITS LAB L100.1000 4.4-11.0 K/mm3 Low WBC 2.6 LAB L100.1200 4.2-5.4 M/mm3 Low RBC 3.17 LAB L100.1300 12.0-15.0 g/dl Low HGB 10.2 LAB L100.1400 37-47 % Low HCT 32.6 LAB L100.1500 81-99 fL High MCV 102.8 LAB L100.1600 27.0-32.0 pg High MCH 32.2 LAB L100.1700 32-36 g/gl Low MCHC 31.3 LAB L100.1810 11.6-14.6 % Normal RDW CV 13.9 LAB L100.1820 35.1-43.9 fl High RDW SD 52.6 LAB L100.1900 150-450 K/mm3 Low PLT 113 LAB L100.2000 6.2-12.0 fl Normal MPV 10.2 LAB L100.2100 47-70 % Normal NEUT% 58.8 LAB L100.2200 19-41 % Normal LY% 24.4 LAB L100.2300 0-10 % Normal MONO% 7.6 LAB L100.2400 0-5 % High EO% 8.4 LAB L100.2500 0-1 % Normal BASO% 0.8 LAB L100.2550 0.0-0.9 % Normal IM GRAN % 0.000 Result Comment: IG% - Immature Granulocytes (promyelocytes, myelocytes and metamyelocytes) > 1% indicates that a LEFT SHIFT is Present. LAB L100.2620 2.0-7.7 X10 3/uL Low Absolute Neut 1.5 LAB L100.2720 0.83-4.51 X10 3/ul Low Absolute Lymph 0.64 Performed By: #### L500.4050, L501.9520, L100.0100 #### [facility] [address], [place], [address] BNP,B-TYPE NATRIURETIC Collected: 03/17/2018 Status: F Source: [place] 11:00 AM [facility] REPOSITORY TYPE CODE TESTS RESULT OUT OF RANGE REFERENCE UNITS LAB L503.6620 0-100 pg/mL High B-TYPE 1048.7 ADELAIDA PEP Performed By: #### L503.6620 #### [facility] [address] [place], [address] BASIC METABOLIC Collected: 03/03/2018 Status: F Source: [place] PROFILE (BMP) 10:45 AM [facility] REPOSITORY TYPE CODE TESTS RESULT OUT OF RANGE REFERENCE UNITS LAB L501.0100 74-106 mg/dL Normal GLU 86 Result Comment: Please note revised GLUCOSE reference range effective 2017. LAB L501.1000 7-18 mg/dL High BUN 42 LAB L501.1100 0.55-1.02 mg/dL High CREAT,SERUM 1.61 Result Comment: The validity of the calculated GFR AND GFRAA in patients over 70 years has not been determined. Clinical correlation is essential. LAB L501.1110 >60 mL/min Low EST GFR 33 Result Comment: Non- GFR Calc LAB L501.1115 >60 mL/min Low EST GFR - AA 40 Result Comment: GFR Calc LAB L501.1300 10-20 RATIO High BUN/CRE 26.1 LAB L501.2200 8.5-10.1 mg/dL CA Normal 8.7 LAB L501.5300 136-145 mmol/L NA Normal 145 LAB L501.5600 3.5-5.1 mmol/L K Normal 4.6 LAB L501.5900 98-107 mmol/L CL Normal 106 LAB L501.6100 21.0-32.0 mmol/L High CO2 33.0 LAB L501.6200 5-15 Normal GAP 6 Performed By: #### L500.2500 #### [facility] [address] [place], [address] PROTHROMBIN TIME W/INR Collected: 03/03/2018 Status: F Source: [place] 10:45 AM [facility] REPOSITORY TYPE CODE TESTS RESULT OUT OF RANGE REFERENCE UNITS LAB L300.4150 11.7-14.9 SECONDS High PROTIME 32.1 LAB L300.4200 Normal INR 3.1 Performed By: #### L300.3900 #### [facility] [address] [place], [address] CARDIOLOGY VISIT Observed: 02/17/2018 Status: F Source: [place] REPORT 9:55 PM [facility] REPOSITORY [facility] [address] [place] [address] OFFICE VISIT Date of Service: 02/13/18 MR#: [id number] Acct: [id number] Name: CAROLINE VALVERDE Rep #: [id number] : 1940 Provider: Devin Gamboa Age/Sex: 77/F Location: [facility] [place] Status: Signed HPI HPI Details: CAROLINE VALVERDE, is a 77 F who presents to the office today for a cardiovascular follow-up. She has a history of nonischemic cardiomyopathy, chronic systolic congestive heart failure [place] Association class IV, valvular heart disease status post mitral valve repair with #26 [place] angioplasty ring and tricuspid valve repair with a #28 tricuspid ring, atrial fibrillation/flutter post AV node ablation with Bi-V ICD placement, left atrial appendage ligation, PFO, hypertension, hyperlipidemia, and syncope. At her appointment last month she was started on Entresto. Unfortunately right after her office visit she was admitted to [facility] for acute on chronic systolic congestive heart failure. She did start Entresto of following her hospital stay. She believes that she has been feeling better since starting the Entresto She feels that she has a little bit more energy and is not as fatigued. She does not have any chest discomfort. She has not had any issues with positional dizziness. She does not have any lower extremity edema. She does not have any palpitations that she is aware of. Intake Vital Signs02/13/18 Height 5 ft 4 in 02/13/18 Weight: 160 lb 02/13/18 Body Mass Index (BMI) 27.4 02/13/18 Blood Pressure 108/58 Intake Visit Reasons: DC PCU 5-8; also 1 M FU Party Plan Sales Agent Required: No Accompanied by: son Is patient in pain?: No Allergies levothyroxine sodium [From Synthroid] Allergy (Severe, Verified 02/13/18 14:45) Pt states it caused renal failure. thyroid, pork [From Perrin Thyroid] Allergy (Severe, Verified 02/13/18 14:45) Unknown latex Allergy (Intermediate, Verified 02/13/18 14:45) Rash Medications Mirtazapine [Remeron] 45 mg PO QHS 10/03/15 [History Confirmed 02/13/18] Sertraline HCl [Zoloft] 100 mg PO QHS 10/03/15 [History Confirmed 02/13/18] Carvedilol [Coreg (Beta Annia)] 6.25 mg PO BID tab 01/14/16 [Rx Confirmed 02/13/18] Dicyclomine HCl [Bentyl] 10 mg PO DAILY 12/08/17 [History Confirmed 02/13/18] Melatonin/Pyridoxine HCl (B6) [Melatonin 10 mg Tablet] 10 mg PO DAILY 08/29/17 [History Confirmed 01/26/18] cyanocobalamin (vit B-12) 500 mcg tablet 500 mcg PO BID tab 12/12/17 [History Confirmed 01/26/18] lorazepam 0.5 mg tablet 0.5 mg PO BID 12/12/17 [History Confirmed 02/13/18] furosemide 20 mg tablet 40 mg PO QDAY tab 01/23/18 [History Confirmed 02/13/18] isosorbide mononitrate ER 30 mg tablet,extended release 24 hr 15 mg PO QAM #15 tab 01/23/18 [Rx Confirmed 02/13/18] hydralazine 25 mg tablet 25 mg PO TID #270 tab 02/02/18 [Rx Confirmed 02/13/18] warfarin 2 mg tablet 2 mg PO .COMPLEX #90 tab 02/10/18 [Rx Confirmed 02/13/18] sacubitril 49 mg-valsartan 51 mg tablet 1 tab PO BID #60 tab 02/13/18 [Rx Confirmed 02/13/18] Ejection fraction %: 20 to 24 PFSH Medical History Paroxysmal atrial fibrillation (Chronic) MGUS (monoclonal gammopathy of unknown significance) (Chronic) Pancytopenia (Chronic) Biventricular congestive heart failure (Chronic) Cardiac pacemaker in situ (Chronic) CKD (chronic kidney disease), stage III (Chronic) Chronic systolic congestive heart failure (Chronic) CHF (congestive heart failure) (Chronic) HTN (hypertension) (Chronic) Primary cardiomyopathy (Chronic) 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) Chronic respiratory failure (Chronic) Ventricular tachycardia (Chronic) AICD (automatic cardioverter/defibrillator) present (Chronic) Hyperlipidemia (Chronic) Pulmonary embolus (Chronic) Mural thrombus of cardiac apex (Chronic) Shortness of breath (Acute) History of cardioversion (Suspected) Dizziness and giddiness (Resolved) Fatigue (Resolved) Syncope (Resolved) history of temporary dialysis (Resolved) Surgical History S/P mitral valve repair (Chronic) S/P tricuspid valve repair (Chronic) Status post ablation of atrial flutter (Chronic) H/O cardiac radiofrequency ablation (Resolved) History of cardiac cath (Resolved) Hx of cholecystectomy (Resolved) ligation of left atrial appendage (Resolved) Family History Father CAD (coronary artery disease) Myocardial infarction Mother CVA (cerebral vascular accident) CHF (congestive heart failure) Daughter Arthritis Atrial fibrillation Hyperlipidemia Social History Smoking Status: Never smoker alcohol intake: never substance use type: does not use diet: low salt caffeine: No what type of physical activity do you participate in: none seatbelt use: always do you feel safe at home: Yes ROS Const Const: Positive for weakness and fatigue; negative for fever(s) or headache(s) Eyes Eyes: Negative for blind spots, loss of peripheral vision or transient loss of vision ENT ENT: Negative for headache(s) Cardio Chest Pain: No Palpitations: No Edema: None Muscle aches with walking: None Resp Respiratory: Positive for SOB with activity; negative for SOB at rest, SOB orthopnea\SOB lying down or Cough GI GI: Negative nausea, vomiting, heartburn or vomiting blood/hematemesis : Negative for hematuria Musc Musc: Negative for muscle aches/ myalgia Neuro Neuro: Positive for weakness; negative for headache(s) Nico Hematologic/Lymphatic: Negative for easy bleeding Endo Endo: Positive for fatigue Cardiology Exam Const Appearance: cooperative, healthy appearing, comfortable and no acute distress Orientation: alert, awake and oriented x3 pale Head Head: normal to inspection Mouth: oral mucosae normal Neck Neck: no JVD and normal visual inspection Carotids: normal carotid upstroke Chest Chest inspection: normal inspection of the chest, normal respiratory effort and Pacemaker/ICD Yes left pectoral incision Auscultation: Bilateral: Diminished Lung Sounds Cardio Rate: regular rate Rhythm: regular rhythm Heart sounds: S2 normal and murmur; negative rub or gallop Murmur: Grade 2/6 and LLSB GI GI: normal to inspection Neuro General: alert, awake, oriented x3 and CN's II-XI intact bilaterally Skin Skin: no rashes or lesions noted Extremities Pulses: Normal: Right Posterior Tibial Pulse, Left Posterior Tibial Pulse, Right Radial Pulse, Left Radial Pulse Lower Extremity Edema: None: Bilateral Psych Psychological: normal affect Supplemental Info Pacemaker check from September 2017 showed no VT/VF episodes and 1 AT/AF episode ongoing in her percent of total time. Presented rhythm was Bi-V paced at 73 ppm with underlying chronic atrial fibrillation. Battery longevity is approximately 6.1 years. Echocardiogram from July 2016 showed an estimated ejection fraction of 20%, severely dilated right ventricle, severely segmental dysfunction of right ventricle, severely enlarged left atrium, severely enlarged right atrium, and angioplasty ring is noted in the mitral position, mild diffuse mitral thickening, mitral valve doming/ hockey sticking, mild to moderate mitral valve stenosis, mild to moderate eccentric mitral valve insufficiency, and angioplasty ring is noted in the tricuspid position, moderate transvalvular insufficiency of the tricuspid valve, mild focal aortic valve calcification, RVSP of 59 mmHg, and ICD or pacer leads identified in both right atrium and right ventricle. No thrombus was visualized in left atrium. Heart catheterization from March 2009 showed left main coronary artery as normal, LAD as normal, RCA as normal, LCx as a nondominant vessel and is normal. Assessment AND Plan 1. Chronic systolic congestive heart failure I50.22 Plan - LOGAN Buitrago stop K+ Orders Orders: 2. AICD (automatic cardioverter/defibrillator) present Z95.810 Plan - LOGAN Buitrago ICD is functioning appropriately. We will continue to monitor with routine scheduled ICD interrogations. Patient has not had any discharges from their device. 3. Dilated cardiomyopathy I42.0 Plan - LOGAN Buitrago Patient symptoms seems to have improved with starting Entresto. Will increase her dose of entrusted today. Will repeat a BMP next week. She will be allowed to stop her potassium today. Will continue to adjust medications accordingly. Patient has not yet started her isosorbide mononitrate. She was finishing up with her current prescription of isosorbide dinitrate. She will let us know if she has any issues with hypotension as she has had this in the past. Patient Instructions - LOGAN Buitrago Increase your entresto - you can take 2 pills in the morning and 2 pills in the evening, then you can project superintendent your next Rx- that will be the increased dose so you will only need to take one in the morning and one in evening. Stop your potassium Have your labs done in 2 weeks 4. Nonrheumatic mitral valve regurgitation I34.0 Plan - LOGAN Buitrago Recent echocardiogram has been reviewed. We will continue to monitor by history, exam and echocardiograms as deemed appropriate. She will continue with AHA antibiotic prophylaxis 5. Paroxysmal atrial fibrillation I48.0 Plan - LOGAN Buitrago Patient is in atrial fibrillation 100% of the time, she is anticoagulated with a therapeutic INR goal of 2-3. She does have issues with chronic anemia. Will need to continue to monitor her hemoglobin closely. Her rate has been adequately controlled. 6. S/P tricuspid valve repair Z98.890 05/19/09 @ [facility] Plan - LOGAN Buitrago Recent echocardiogram has been reviewed. We will continue to monitor by history, exam and echocardiograms as deemed appropriate. She will continue with AHA antibiotic guidelines. Plan Detail Other Medications New: Discontinued: sacubitril-valsartan 24-26 mg (Entresto) Discontinued Reason: Order Chan1 tab PO BID ged Follow Up 1 Month (MMM needs fridays) Coding Level of Care Code Off vis,est,level 4 Diagnoses Chronic systolic congestive heart failure I50.22 AICD (automatic cardioverter/defibrillator) present Z95.810 Dilated cardiomyopathy I42.0 Nonrheumatic mitral valve regurgitation I34.0 Paroxysmal atrial fibrillation I48.0 S/P tricuspid valve repair Z98.890 Coding Level of Care Code Off vis,est,level 4 Diagnoses Chronic systolic congestive heart failure I50.22 AICD (automatic cardioverter/defibrillator) present Z95.810 Dilated cardiomyopathy I42.0 Nonrheumatic mitral valve regurgitation I34.0 Paroxysmal atrial fibrillation I48.0 S/P tricuspid valve repair Z98.890 02/17/18 0916 <Electronically signed by Devin FORD> Date Devin FORD 02/17/18 9945<Electronically signed by Carlos Mcallister MD> Cosigner Signature: Date (if applicable) Carlos Mcallister MD CC: Michael Muse MD PROTHROMBIN TIME W/INR Collected: 02/17/2018 Status: F Source: [place] 10:50 AM [facility] REPOSITORY TYPE CODE TESTS RESULT OUT OF RANGE REFERENCE UNITS LAB L300.4150 11.7-14.9 SECONDS High PROTIME 26.7 LAB L300.4200 Normal INR 2.5 Performed By: #### L300.3900 #### [facility] [address] [place], [address] PROTHROMBIN TIME W/INR Collected: 02/10/2018 Status: F Source: [place] 10:30 AM [facility] REPOSITORY Order Comment: HOMEDRAW TYPE CODE TESTS RESULT OUT OF RANGE REFERENCE UNITS LAB L300.4150 11.7-14.9 SECONDS High PROTIME 21.3 LAB L300.4200 Normal INR 1.8 Performed By: #### L300.3900 #### [facility] [address] [place], [address] PROTHROMBIN TIME W/INR Collected: 02/06/2018 Status: F Source: [place] 10:20 AM [facility] REPOSITORY Order Comment: PT/INR TO DR. MCALLISTER BMP TO DEVIN GAMBOA TYPE CODE TESTS RESULT OUT OF RANGE REFERENCE UNITS LAB L300.4150 11.7-14.9 SECONDS High PROTIME 16.3 LAB L300.4200 Normal INR 1.3 Performed By: #### L300.3900 #### [facility] [address] [place], [place], [address] BASIC METABOLIC Collected: 02/06/2018 Status: F Source: [place] PROFILE (BMP) 10:20 AM [facility] REPOSITORY Order Comment: PT/INR TO DR. MCALLISTER BMP TO DEVIN GAMBOA TYPE CODE TESTS RESULT OUT OF RANGE REFERENCE UNITS LAB L501.0100 74-106 mg/dL Normal GLU 88 Result Comment: Please note revised GLUCOSE reference range effective 2017. LAB L501.1000 7-18 mg/dL High BUN 27 LAB L501.1100 0.55-1.02 mg/dL High CREAT,SERUM 1.40 Result Comment: The validity of the calculated GFR AND GFRAA in patients over 70 years has not been determined. Clinical correlation is essential. LAB L501.1110 >60 mL/min Low EST GFR 39 Result Comment: Non- GFR Calc LAB L501.1115 >60 mL/min Low EST GFR - AA 47 Result Comment: GFR Calc LAB L501.1300 10-20 RATIO Normal BUN/CRE 19.3 LAB L501.2200 8.5-10.1 mg/dL CA Normal 8.7 LAB L501.5300 136-145 mmol/L NA Normal 143 LAB L501.5600 3.5-5.1 mmol/L K Normal 4.4 LAB L501.5900 98-107 mmol/L High CL 108 LAB L501.6100 21.0-32.0 mmol/L Normal CO2 31.0 LAB L501.6200 5-15 Low GAP 4 Performed By: #### L500.2500 #### [facility] [address] [place], [address] CARDIOLOGY VISIT Observed: 02/06/2018 Status: F Source: [place] REPORT 7:59 AM [facility] REPOSITORY [facility] [address] [place], [place] [address] OFFICE VISIT Date of Service: 01/23/18 MR#: [id number] Acct: [id number] Name: CAROLINE VALVERDE Rep #: [id number] : 1940 Provider: Devin Gamboa Age/Sex: 77/F Location: [facility] [place] Status: Signed HPI HPI Details: CAROLINE VALVERDE, is a 77 F who presents to the office today for a cardiovascular follow-up. She has a history of nonischemic cardiomyopathy, chronic systolic congestive heart failure [place] Association class IV, valvular heart disease status post mitral valve repair with #26 Fletcher Madison angioplasty ring and tricuspid valve repair with a #28 tricuspid ring, atrial fibrillation/flutter post AV node ablation with Bi-V ICD placement, left atrial appendage ligation, PFO, hypertension, hyperlipidemia, and syncope. Patient does not feel that she is any better since her last time that she was seen in the office. She still feels short of breath and fatigue. She still complains of positional dizziness. She does not have any lower extremity edema. She does not have any chest pain or heaviness. She does not have any palpitations that she is aware of. Intake Vital Signs01/23/18 Height 5 ft 4 in 01/23/18 Weight: 160 lb 01/23/18 Body Mass Index (BMI) 27.4 01/23/18 Blood Pressure 102/62 Intake Visit Reasons: 6 wk FU Party Plan Sales Agent Required: No Accompanied by: son Is patient in pain?: No Allergies levothyroxine sodium [From Synthroid] Allergy (Severe, Verified 01/23/18 14:09) Pt states it caused renal failure. thyroid, pork [From Perrin Thyroid] Allergy (Severe, Verified 01/23/18 14:09) Unknown latex Allergy (Intermediate, Verified 01/23/18 14:09) Rash Medications Mirtazapine [Remeron] 45 mg PO QHS 10/03/15 [History Confirmed 01/26/18] Sertraline HCl [Zoloft] 100 mg PO QHS 10/03/15 [History Confirmed 01/26/18] Carvedilol [Coreg (Beta Annia)] 6.25 mg PO BID tab 01/14/16 [Rx Confirmed 01/26/18] Sertraline HCl [Zoloft] 50 mg PO 1200 05/28/17 [History Confirmed 01/26/18] Dicyclomine HCl [Bentyl] 10 mg PO DAILY 08/29/17 [History Confirmed 01/26/18] Melatonin/Pyridoxine HCl (B6) [Melatonin 10 mg Tablet] 10 mg PO DAILY 08/29/17 [History Confirmed 01/26/18] cyanocobalamin (vit B-12) 500 mcg tablet 500 mcg PO BID tab 12/12/17 [History Confirmed 01/26/18] lorazepam 0.5 mg tablet 0.5 mg PO BID 12/12/17 [History Confirmed 01/26/18] potassium chloride ER 10 mEq capsule,extended release 10 meq PO DAILY cap 12/12/17 [History Confirmed 01/26/18] furosemide 20 mg tablet 40 mg PO QDAY tab 01/23/18 [History Confirmed 01/26/18] isosorbide mononitrate ER 30 mg tablet,extended release 24 hr 15 mg PO QAM #15 tab 01/23/18 [Rx Confirmed 01/26/18] sacubitril 24 mg-valsartan 26 mg tablet 1 tab PO BID #60 tab 01/23/18 [Rx Confirmed 01/26/18] warfarin 2 mg tablet 2 mg PO .COMPLEX #90 tab 01/23/18 [Rx Confirmed 01/26/18] hydralazine 25 mg tablet 25 mg PO TID #270 tab 02/02/18 [Rx] Ejection fraction %: 20 to 24 PFSH Medical History Paroxysmal atrial fibrillation (Chronic) MGUS (monoclonal gammopathy of unknown significance) (Chronic) Pancytopenia (Chronic) Biventricular congestive heart failure (Chronic) Cardiac pacemaker in situ (Chronic) CKD (chronic kidney disease), stage III (Chronic) Chronic systolic congestive heart failure (Chronic) CHF (congestive heart failure) (Chronic) HTN (hypertension) (Chronic) Primary cardiomyopathy (Chronic) 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) Chronic respiratory failure (Chronic) Ventricular tachycardia (Chronic) AICD (automatic cardioverter/defibrillator) present (Chronic) Hyperlipidemia (Chronic) Pulmonary embolus (Chronic) Mural thrombus of cardiac apex (Chronic) Dizziness and giddiness (Acute) Fatigue (Acute) History of cardioversion (Acute) Pacemaker (Acute) Syncope (Acute) history of temporary dialysis (Acute) ligation of left atrial appendage (Acute) Surgical History S/P mitral valve repair (Chronic) S/P tricuspid valve repair (Chronic) Status post ablation of atrial flutter (Chronic) H/O cardiac radiofrequency ablation (Acute) H/O tricuspid valve repair (Acute) History of cardiac cath (Acute) Hx of cholecystectomy (Acute) Family History Father CAD (coronary artery disease) Myocardial infarction Mother CVA (cerebral vascular accident) CHF (congestive heart failure) Daughter Arthritis Atrial fibrillation Hyperlipidemia ROS Const Const: Positive for weakness and fatigue; negative for fever(s) or headache(s) Eyes Eyes: Negative for blind spots, loss of peripheral vision or transient loss of vision ENT ENT: Positive for dizziness; negative for headache(s), tinnitus or Nosebleed/epistaxis Cardio Chest Pain: No Palpitations: No Edema: None Muscle aches with walking: None Resp Respiratory: Positive for SOB with activity, SOB at rest and SOB orthopnea\SOB lying down; negative for Cough GI GI: Negative nausea, vomiting, heartburn or vomiting blood/hematemesis : Negative for hematuria Musc Musc: Negative for muscle aches/ myalgia Neuro Neuro: Positive for weakness and dizziness; negative for headache(s), near syncope, syncope, lightheadedness or orthostatic symptoms Nico Hematologic/Lymphatic: Negative for easy bleeding Endo Endo: Positive for fatigue Cardiology Exam Const Appearance: cooperative, healthy appearing, comfortable and no acute distress Orientation: alert, awake and oriented x3 pale Head Head: normal to inspection Mouth: oral mucosae normal Neck Neck: no JVD and normal visual inspection Carotids: normal carotid upstroke Chest Chest inspection: normal inspection of the chest and normal respiratory effort Auscultation: Bilateral: Clear to Auscultation Cardio Rate: regular rate Rhythm: regular rhythm Heart sounds: S2 normal and murmur; negative rub or gallop Murmur: Grade 2/6 and LLSB GI GI: normal to inspection Neuro General: alert, awake, oriented x3 and CN's II-XI intact bilaterally Skin Skin: no rashes or lesions noted Extremities Pulses: Normal: Right Posterior Tibial Pulse, Left Posterior Tibial Pulse, Right Radial Pulse, Left Radial Pulse Lower Extremity Edema: None: Bilateral Psych Psychological: normal affect Supplemental Info Pacemaker check from September 2017 showed no VT/VF episodes and 1 AT/AF episode ongoing in her percent of total time. Presented rhythm was Bi-V paced at 73 ppm with underlying chronic atrial fibrillation. Battery longevity is approximately 6.1 years. Echocardiogram from July 2016 showed an estimated ejection fraction of 20%, severely dilated right ventricle, severely segmental dysfunction of right ventricle, severely enlarged left atrium, severely enlarged right atrium, and angioplasty ring is noted in the mitral position, mild diffuse mitral thickening, mitral valve doming/ hockey sticking, mild to moderate mitral valve stenosis, mild to moderate eccentric mitral valve insufficiency, and angioplasty ring is noted in the tricuspid position, moderate transvalvular insufficiency of the tricuspid valve, mild focal aortic valve calcification, RVSP of 59 mmHg, and ICD or pacer leads identified in both right atrium and right ventricle. No thrombus was visualized in left atrium. Heart catheterization from March 2009 showed left main coronary artery as normal, LAD as normal, RCA as normal, LCx as a nondominant vessel and is normal. Assessment AND Plan 1. Dilated cardiomyopathy I42.0 Plan - LOGAN Buitrago Unfortunately patient did not improve with medication adjustments that were made at last office visit. With her congestive heart failure patient is a candidate for Entresto. Will have patient start out at low dose Entresto. Will need to monitor her BMP closely. Patient and son are concerned about the cost of isosorbide dinitrate, will try to switch this over to isosorbide mononitrate. Hopefully patient will be able to tolerate this as in the past she has had issues with hypotension. Patient Instructions - LOGAN Buitrago We will try Isosorbide mononitrate at 15 mg daily, hold the isosorbide dinitrate that you are taking. I will try you on Entresto. I need you to repeat your BMP in 2 weeks. [employer] for [employer] insurance Orders Orders: 2. Paroxysmal atrial fibrillation I48.0 Plan - LOGAN Buitrago Rate is adequately controlled. She will continue with Coumadin with a therapeutic INR goal of 2-3. Plan Detail Other Medications New: isosorbide mononitrate ER swallow whole with glass of water;15 mg (1/2 x 30 mg) PO QAM do not crush/chew /dissolve /cut/break Additional Comments - LOGAN Buitrago The above patient was discussed with Dr. Mcallister, he agrees with plan of care. Thank you for allowing us to participate in patient's plan of care, if you have any questions please do not hesitate to call. This note was generated using a voice recognition system and there may be incorrect words, spelling or punctuation errors that were not noted when reviewing the office note prior to saving. Follow Up 1 Month (PFM/MMM) Coding Level of Care Code Off vis,est,level 4 Diagnoses Dilated cardiomyopathy I42.0 Paroxysmal atrial fibrillation I48.0 Coding Level of Care Code Off vis,est,level 4 Diagnoses Dilated cardiomyopathy I42.0 Paroxysmal atrial fibrillation I48.0 02/05/18 1432 <Electronically signed by Devin FORD> Date Devin FORD 02/06/18 3328<Electronically signed by Carlos Mcallister MD> Cosigner Signature: Date (if applicable) Carlos Mcallister MD CC: Michael Muse MD 12 LEAD ELECTROCARDIOGRAM Observed: 01/28/2018 Status: F Source: [facility] 1:20 PM [facility] Cardiovascular Services [address] [place] [address] 12 Lead EKG 01/25/189 MR#: [id number] Acct: [id number] Name: CAROLINE VALVERDE Rep #: [id number] : 1940 77 From: Carlos Mcallister MD Attending Dr: Thang Ramirez MD Status: DIS IN Ordering Dr: Agata Morejon MD Date: 01/25/18 Location: [facility] Sex: F C Admitted: 01/25/18 Test Reason : SOB Blood Pressure : / mmHG Vent. Rate : 141 BPM Atrial Rate : 038 BPM P-R Int : 000 ms QRS Dur : 090 ms QT Int : 086 ms P-R-T Axes : 000 -24 000 degrees QTc Int : 131 ms Electronic ventricular pacemaker Borderline ECG Confirmed by ESVIN PAUL, CARLOS ([id number]), newspaper editor managing SHAHANA SANDRA ([id number]) on 01/28/2018 1:19:55 PM Referred By: DAISY Confirmed By:CARLOS MCALLISTER MD 01/28/18 1320 Date Carlos Mcallister MD CC: Agata Morejon MD; Michael Muse MD; Thang Ramirez MD Signed DISCHARGE INSTRUCTION Observed: 01/27/2018 Status: F Source: [facility]ICA 9:49 AM [facility] Medical Records Department [address] [place] [address] Instructions for Home/Discharge Instructions 01/27/18 0948 MR#: [id number] Acct: [id number] Name: CAROLINE VALVERDE Rep #: [id number] : 1940 77 From: Thang Ramirez MD PCP: Michael Muse MD Status: ADM IN You will use the following diet at home:: Cardiac, Fluid restricted (specify 2000 mls, 1500 mls) - 1999 Discharge Activity: Return to Normal Activity Allergies/Adverse Reactions: Allergies levothyroxine sodium [From Synthroid] Allergy (Severe, Verified 01/23/18 14:09) Pt states it caused renal failure. thyroid, pork [From Perrin Thyroid] Allergy (Severe, Verified 01/23/18 14:09) Unknown Pt states it caused renal failure latex Allergy (Intermediate, Verified 01/23/18 14:09) Rash Medications to take at Discharge hydrALAZINE [Apresoline] 25 mg PO TID 06/29/14 Mirtazapine [Remeron] 45 mg PO QHS 10/03/15 Sertraline HCl [Zoloft] 100 mg PO QHS 10/03/15 Carvedilol [Coreg (Beta Annia)] 6.25 mg PO BID tab 01/14/16 Sertraline HCl [Zoloft] 50 mg PO 1200 05/28/17 Dicyclomine HCl [Bentyl] 10 mg PO DAILY 08/29/17 Melatonin/Pyridoxine HCl (B6) [Melatonin 10 mg Tablet] 10 mg PO DAILY 08/29/17 cyanocobalamin (vit B-12) 500 mcg tablet 500 mcg PO BID tab 12/12/17 lorazepam 0.5 mg tablet 0.5 mg PO BID 12/12/17 potassium chloride ER 10 mEq capsule,extended release 10 meq PO DAILY cap 12/12/17 furosemide 20 mg tablet 40 mg PO QDAY tab 01/23/18 isosorbide mononitrate ER 30 mg tablet,extended release 24 hr 15 mg PO QAM #15 tab 01/23/18 sacubitril 24 mg-valsartan 26 mg tablet 1 tab PO BID #60 tab 01/23/18 warfarin 2 mg tablet 2 mg PO .COMPLEX #90 tab 01/23/18 Primary Care Physician: Landry Muse MD [Primary Care Provider] - Please follow up with your Primary Care Physician in: in 1- 2 weeks Please Follow Up With: Devin Gamboa PA When: in 1-2 weeks Proposed Discharge Date: 01/27/18 01/27/1849 <Electronically signed by Thang Ramirez MD> Date Thang Ramirez MD CC: Michael Muse MD DISCHARGE SUMMARY Observed: 01/27/2018 Status: F Source: [facility] 9:40 AM [facility] Medical Records Department [address] [place] [address] Discharge Summary 01/27/18 0936 MR#: [id number] Acct: [id number] Name: CAROLINE VALVERDE Rep #: [id number] : 1940 77 From: Thang Ramirez MD PCP: Michael Muse MD Status: ADM IN Y Location: [place] [address]-1 Discharge Date and Diagnosis Date of Admission: 01/26/18 Date of Discharge: 01/27/18 - Primary Discharge Diagnosis Acute on chronic systolic heart failure - Secondary Discharge Diagnosis Chronic Problems (Last Updated 01/25/18 @ 23:43 by Martha Hernandez MD) Atrial flutter (Chronic) Dilated cardiomyopathy (Chronic) Nonrheumatic mitral valve regurgitation (Chronic) Paroxysmal atrial fibrillation (Chronic) MGUS (monoclonal gammopathy of unknown significance) (Chronic) Pancytopenia (Chronic) Biventricular congestive heart failure (Chronic) Cardiac pacemaker in situ (Chronic) CKD (chronic kidney disease), stage III (Chronic) Chronic systolic congestive heart failure (Chronic) CHF (congestive heart failure) (Chronic) Depression (Chronic) Esophageal reflux (Chronic) Heart valve replaced (Chronic) Mitral AND Tricuspid valves replaced 05/19/09 @ [facility] HTN (hypertension) (Chronic) Primary cardiomyopathy (Chronic) 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) Chronic respiratory failure (Chronic) S/P mitral valve repair (Chronic) 05/19/09, Mitral valve repair with placement of #26 Fletcher- Madison annuloplasty ring, placement of Linn stitch AND tricuspid valve repair with placement of #28 tricuspid annuloplasty ring @ [facility] S/P tricuspid valve repair (Chronic) 05/19/09 @ [facility] Status post ablation of atrial flutter (Chronic) Ventricular tachycardia (Chronic) AICD (automatic cardioverter/defibrillator) present (Chronic) ICD Implant January 2007, ICD Extraction/upgrade to a biventricular pacemaker 06/28; Pulse generator change AND AV node ablation 09/23/12; Pacemaker generator change 05/22/17 Hyperlipidemia (Chronic) Pulmonary embolus (Chronic) Mural thrombus of cardiac apex (Chronic) Hospital Course and Treatment Imaging Results: Clinical Impression(s) from Imaging Studies Chest X-Ray 01/25/18 21:27 IMPRESSION: No infiltrate. Stable cardiomegaly. Electronically Signed: Maurice Da Silva DO at 22:28 EDT , Service support , Abdomen/Pelvis CT 01/25/18 21:28 IMPRESSION: Questionable approximately 3 cm hypodense lesion in the head of the pancreas, difficult to further evaluate without oral and IV contrast. Marked cardiomegaly and moderate right pleural effusion. Cirrhotic morphology of the liver. No evidence of significant splenomegaly or ascites. Cortical renal thinning. No evidence of bowel obstruction. at 2319 Reported and signed by: Shahana Maddox MD Electronically Signed: Shahana Maddox MD at 23:18 EDT Tel , Service support , Abdomen/Pelvis CT 01/26/18 09:13 IMPRESSION: 1. 2.8 cm cystic lesion at the head of the pancreas of indeterminate etiology. There is dilatation of the pancreatic duct up to the cystic structure, suggesting a degree of partial obstruction. Overall, there is pancreatic atrophy. 2. Small cyst in the dome of the liver. There are also cortical cysts of the left kidney. 3. Stable mild to moderate bilateral renal cortical atrophy. No hydronephrosis. 4. Atherosclerotic calcifications of the thoracoabdominal aorta and proximal iliac arteries. No demonstrated aneurysm. 50-69% diameter stenosis of the right renal artery is suggested. 5. The heart is enlarged, but unchanged. Leads of a pacemaker/AICD again noted. 6. Stable right pleural effusion with minor atelectasis in the inferior right lung base. 7. The bowel is unremarkable without signs of obstruction. The appendix is normal. 8. Stable degenerative changes of the spine and pelvis. Anterior wedging compression deformity of the T11 vertebra again noted. Electronically Signed: Serjio Condon MD at 12:05 EDT , Service support , Operations: None Summary of Care Provided: Patient is a 77-year-old lady with history of systolic congestive heart failure with an EF of 20-25% started on Entresto 3 days prior to her admission. Presented with shortness of breath and assessment of congestive heart failure made admitted to a monitored bed for further management 1. Acute on chronic heart failure with reduced ejection fraction.: Patient has been admitted to a monitored nursing floor placed on fluid restriction, strict input and output daily with an IV Lasix in addition to supplemental oxygen . 2. Right-sided pleural effusion attributed to patient congestive heart failure improved with diuresis 3. Chronic hypoxic respiratory failure secondary to patient CHF on baseline home O2 4. Valvular heart disease with previous history of mitral valve repair as well as tricuspid valve repair 5. Cardiomyopathy with an ejection fraction of 20-25% status post AICD placement 6. Conduction system disorder status post pacemaker placement 7. Paroxysmal A. fib rate controlled on Coreg; on systemic anticoagulation with Coumadin INR is therapeutic 8. Hypertension-blood pressure controlled, home medications continued with dose adjustment as needed 9. Depression per History 10. Chronic pancytopenia 11. MGUS 12. Dyslipidemia. History 13. DVT prophylaxis on Coumadin with therapeutic INR 14. Questionable approximately 3 cm hypodense lesion in the head of the pancreas, CT of the abdomen with oral and IV contrast ordered for subsequent evaluation CT of the abdomen with contrast demonstrated a pancreatic cyst. Patient was informed of the results instructed to follow-up with PCP for repeat imaging in 3-6 months Discharge Diet: Low fat/ Low Cholesterol, 8 Cup Fluid Restriciton Discharge Activity: Return to Normal Activity Home Medications: Medications to take at Discharge hydrALAZINE [Apresoline] 25 mg PO TID 06/29/14 Mirtazapine [Remeron] 45 mg PO QHS 10/03/15 Sertraline HCl [Zoloft] 100 mg PO QHS 01/12/16 Carvedilol [Coreg (Beta Annia)] 6.25 mg PO BID tab 01/14/16 Sertraline HCl [Zoloft] 50 mg PO 1200 05/28/17 Dicyclomine HCl [Bentyl] 10 mg PO DAILY 08/29/17 Melatonin/Pyridoxine HCl (B6) [Melatonin 10 mg Tablet] 10 mg PO DAILY 08/29/17 cyanocobalamin (vit B-12) 500 mcg tablet 500 mcg PO BID tab 12/12/17 lorazepam 0.5 mg tablet 0.5 mg PO BID 12/12/17 potassium chloride ER 10 mEq capsule,extended release 10 meq PO DAILY cap 12/12/17 furosemide 20 mg tablet 40 mg PO QDAY tab 01/23/18 isosorbide mononitrate ER 30 mg tablet,extended release 24 hr 15 mg PO QAM #15 tab 01/23/18 sacubitril 24 mg-valsartan 26 mg tablet 1 tab PO BID #60 tab 01/23/18 warfarin 2 mg tablet 2 mg PO .COMPLEX #90 tab 01/23/18 Primary Care Physician: Landry Muse MD [Primary Care Provider] - Medical Necessity - Tobacco Use Smoking Status: Never smoker Tobacco Use: Non-smoker Meaningful Use Info Meaningful Use Diagnoses (Choose all that apply): CHF - CHF ROMARIO/ARB ordered at discharge?: Yes Documented LVEF (%): 20 Code Visit Inpatient E AND M: 87171 Disch Hosp 01/27/18 0940 <Electronically signed by Thang Ramirez MD> Date Thang Ramirez MD Cosigner Signature (if applicable): Date CC: Michael Muse MD; Thang Ramirez MD Signed TROPONIN-I Collected: 01/26/2018 Status: F Source: [facility]ICA 11:50 AM [facility] Order Comment: 'TROP' Serial specimen #1, #2, #3, or #4: 4 TYPE CODE TESTS RESULT OUT OF RANGE REFERENCE UNITS LAB L501.4010 <0.06 ng/mL Normal < 0.02 TROPONIN-I Result Comment: TROPONIN-I EXPECTED VALUES <0.05 NEGATIVE 0.06 - 0.59 AT RISK OF VT > OR = 0.60 SUGGEST VT Performed By: #### L501.4010, L500.2500 #### [facility] [address] [place], [address] ABDOMEN/PELVIS WITH Observed: 01/26/2018 Status: F Source: [place] CONTRAST 9:14 AM [facility] Imaging Services [address] [place] [address] Abdomen/Pelvis WITH Contrast MR#: [id number] Acct: [id number] Name: CAROLINE VALVERDE Rep #: [id number] : 1940 F 77 From: Axel Condon MD PCP: Michael Muse MD Status: ADM IN Study: Abdomen/Pelvis WITH Contrast Date of Exam: 01/26/18 Exam# [id number] Ordering Dr: Thang Ramirez MD STUDY: CT ABDOMEN AND PELVIS WITH CONTRAST REASON FOR EXAM: Female, 77 years old. Bloating. Pancreatic mass. RADIATION DOSAGE (If Supplied By Facility): CTDIvol = ( 20.07 ) mGy, DLP = ( 825.73 ) mGycm TECHNIQUE: Transaxial images were obtained from the dome of the diaphragm to the symphysis pubis without oral contrast. 100 ml of Isovue 300 contrast was administered. Sagittal and coronal images were reconstructed. Individualized dose optimization techniques were used for this CT. COMPARISON: CT abdomen pelvis without IV contrast January 25, 2018. FINDINGS: Stable small pleural effusion with subsegmental airspace disease of probable atelectasis in the inferior right base. Small inferomedial right lower lobe calcified granuloma also present. The heart is enlarged. Pacemaker/AICD leads again seen in the right heart and coronary sinus. Moderately well-defined 13.5 x 12 x 10.5 mm subcapsular low- density in the dome of the liver. (Series 2 image 7, series 601 image 44) is consistent with a cyst. Elongated left lobe of liver extends into the anterior left upper quadrant. The patent portal vein diameter is 15 mm. There are surgical clips in the gallbladder fossa consistent with a prior cholecystectomy. The common bile duct diameter reaches 11.5 mm. Normal spleen. There is diffuse atrophy of the pancreas. Ectasia of the pancreatic duct continues up to a 2.2 x 2.45 x 2.8 cm cystic lesion at the pancreatic head. Normal bilateral adrenal glands. There is stable mild to moderate cortical atrophy of the right kidney, consistent with chronic medical renal disease. There is stable mild to moderate cortical atrophy of the left kidney, consistent with chronic medical renal disease. 13 mm cortical cyst seen at the tip of the upper pole of the left kidney, while a second 12.5 mm cortical cyst is questioned at the lateral upper pole. 5.5 mm low-density at the posterolateral midpole also is likely a cortical cyst. No hydronephrosis. Normal visualized stomach. Normal small intestine. Normal colon. The appendix is visualized and appears normal. There are a few nonspecific lymph nodes in the central mesentery. There is diffuse atherosclerotic calcification of the thoracoabdominal aorta and proximal iliac arteries, without a demonstrated aneurysm. 50-69% diameter atherosclerotic stenosis suggested at the origin of the right renal artery. Normal inferior vena cava. There are a few nonspecific periaortic lymph nodes in the retroperitoneum. Normal urinary bladder. There are prostatic calcifications. Normal abdominal wall. There are stable multilevel degenerative changes of the visualized lumbar spine as well as degenerative changes of the bilateral sacroiliac joints. Stable grade 1 anterolisthesis of L5 on S1. Anterior wedging compression deformity of the T11 vertebra is unchanged. CT/Abdomen/Pelvis WITH Contrast IMPRESSION: 1. 2.8 cm cystic lesion at the head of the pancreas of indeterminate etiology. There is dilatation of the pancreatic duct up to the cystic structure, suggesting a degree of partial obstruction. Overall, there is pancreatic atrophy. 2. Small cyst in the dome of the liver. There are also cortical cysts of the left kidney. 3. Stable mild to moderate bilateral renal cortical atrophy. No hydronephrosis. 4. Atherosclerotic calcifications of the thoracoabdominal aorta and proximal iliac arteries. No demonstrated aneurysm. 50-69% diameter stenosis of the right renal artery is suggested. 5. The heart is enlarged, but unchanged. Leads of a pacemaker/AICD again noted. 6. Stable right pleural effusion with minor atelectasis in the inferior right lung base. 7. The bowel is unremarkable without signs of obstruction. The appendix is normal. 8. Stable degenerative changes of the spine and pelvis. Anterior wedging compression deformity of the T11 vertebra again noted. Electronically Signed: Serjio Condon MD at 12:05 EDT , Service support , CC: Michael Muse MD; Thang Ramirez MD Second Chef: Signed BASIC METABOLIC Collected: 01/26/2018 Status: F Source: [place] PROFILE (BMP) 5:35 AM [facility] REPOSITORY Order Comment: 'TROP' Serial specimen #1, #2, #3, or #4: 3 TYPE CODE TESTS RESULT OUT OF RANGE REFERENCE UNITS LAB L501.0100 74-106 mg/dL Normal GLU 85 Result Comment: Please note revised GLUCOSE reference range effective 2017. LAB L501.1000 7-18 mg/dL High BUN 28 LAB L501.1100 0.55-1.02 mg/dL High CREAT,SERUM 1.38 Result Comment: The validity of the calculated GFR AND GFRAA in patients over 70 years has not been determined. Clinical correlation is essential. LAB L501.1110 >60 mL/min Low EST GFR 39 Result Comment: Non- GFR Calc LAB L501.1115 >60 mL/min Low EST GFR - AA 48 Result Comment: GFR Calc LAB L501.1255 ml/min Normal Estimated CRCL 29.95 LAB L501.1300 10-20 RATIO High BUN/CRE 20.3 LAB L501.2200 8.5-10 mg/dL Normal .1 CA 8.5 LAB L501.5300 136-14 mmol/L Normal 5 NA 145 LAB L501.5600 3.5-5. mmol/L Normal 1 K 4.0 LAB L501.5900 98-107 mmol/L High CL 108 LAB L501.6100 21.0-3 mmol/L Normal 2.0 CO2 32.0 LAB L501.6200 5-15 Normal GAP 5 Performed By: #### L501.4010, L500.2500 #### [facility] [address] [place], [place], [address] CBC W/DIFF, AUTOMATED Collected: 01/26/2018 Status: F Source: [place] 5:35 AM [facility] REPOSITORY TYPE CODE TESTS RESULT OUT OF RANGE REFERENCE UNITS LAB L100.1000 4.4-11.0 K/mm3 Low WBC 2.8 LAB L100.1200 4.2-5.4 M/mm3 Low RBC 2.77 LAB L100.1300 12.0-15.0 g/dl Low HGB 9.2 LAB L100.1400 37-47 % Low HCT 29.7 LAB L100.1500 81-99 fL High MCV 107.2 LAB L100.1600 27.0-32.0 pg High MCH 33.2 LAB L100.1700 32-36 g/gl Low MCHC 31.0 LAB L100.1810 11.6-14.6 % Normal RDW CV 13.6 LAB L100.1820 35.1-43.9 fl High RDW SD 50.7 LAB L100.1900 150-450 K/mm3 Low PLT 100 LAB L100.2000 6.2-12.0 fl Normal MPV 9.7 LAB L100.2100 47-70 % Normal NEUT% 56.9 LAB L100.2200 19-41 % Normal LY% 23.7 LAB L100.2300 0-10 % High MONO% 10.2 LAB L100.2400 0-5 % High EO% 8.5 LAB L100.2500 0-1 % Normal BASO% 0.7 LAB L100.2550 0.0-0.9 % Normal IM GRAN % 0.000 Result Comment: IG% - Immature Granulocytes (promyelocytes, myelocytes and metamyelocytes) > 1% indicates that a LEFT SHIFT is Present. LAB L100.2620 2.0-7.7 X10 3/uL Low Absolute Neut 1.6 LAB L100.2720 0.83-4.51 X10 3/ul Low Absolute Lymph 0.67 Performed By: #### L100.0100 #### [facility] [address] [place], [address] PROTHROMBIN TIME W/INR Collected: 01/26/2018 Status: F Source: [place] 5:35 AM [facility] REPOSITORY TYPE CODE TESTS RESULT OUT OF RANGE REFERENCE UNITS LAB L300.4150 11.7-14.9 SECONDS High PROTIME 22.7 LAB L300.4200 Normal INR 2.0 Performed By: #### L300.3900 #### [facility] [address] [place], [address] MAGNESIUM Collected: 01/26/2018 Status: F Source: [place] 2:10 AM [facility] REPOSITORY TYPE CODE TESTS RESULT OUT OF RANGE REFERENCE UNITS LAB L501.5200 1.6-2.6 mg/dL Normal MG 2.4 Performed By: #### L501.5200 #### [facility] [address], [address] HISTORY AND PHYSICAL Observed: 01/26/2018 Status: F Source: [place]ICA EXAM 1:24 AM [facility] REPOSITORY [facility] Medical Records Department [address] [place] [address] History and Physical 01/26/18 0005 MR#: [id number] Acct: [id number] Name: CAROLINE VALVERDE Rep #: [id number] : 1940 77 From: Martha Hernandez MD PCP: Michael Muse MD Status: ADM IN Location: [place] [address] Problem List (1) Atrial flutter Status: Chronic (2) Dilated cardiomyopathy Status: Chronic (3) Paroxysmal atrial fibrillation Status: Chronic (4) Pancytopenia Status: Chronic (5) Biventricular congestive heart failure Status: Chronic (6) Cardiac pacemaker in situ Status: Chronic (7) CKD (chronic kidney disease), stage III Status: Chronic (8) Depression Status: Chronic (9) Esophageal reflux Status: Chronic (10) Chronic respiratory failure Status: Chronic (11) AICD (automatic cardioverter/defibrillator) present Status: Chronic Comment: ICD Implant January 2007, ICD Extraction/upgrade to a biventricular pacemaker 06/28; Pulse generator change AND AV node ablation 09/23/12; Pacemaker generator change 05/22/17 (12) Hyperlipidemia Status: Chronic History of Present Illness Date of Admission: 01/26/18 Chief Complaint: Shortness of breath. The patient is a 77 year old F with multiple medical comorbidities as mentioned above presented to the emergency room because of shortness of breath. Her symptoms started few days ago with shortness of breath at rest, worse than usual and today, she was more short of breath and gasping for air at rest and her oxygen did not help. Shortness of breath aggravated by even minimal activity and did not relieved by rest, associated with dry cough and without other associated symptoms. She denied chest pain, palpitation, dizziness or lightheadedness. She denies fever or chills. Her son was at the bedside and he mentioned that his home oxygen does not work properly. She has history of combined systolic and diastolic CHF with ejection fraction of 20% status post ICD and she has been on Lasix. She saw Dr. Mcallister this past Friday for follow-up and she was doing okay. She has history of chronic respiratory failure secondary to CHF and she has been on oxygen at 2 L. She has history of paroxysmal atrial fibrillation and she has been on Coreg for rate control and on Coumadin for anticoagulation. She has history of stage III chronic kidney disease and likely has been stable and it is around 1.3-1.7 mg/dL. She has history of pancytopenia and she was evaluated by hematology and was diagnosed with monoclonal gammopathy of unknown significance. In the emergency department, she was dyspneic and tachypneic pulse ox was 99% on 3 L. After she was placed on oxygen in the ER, she felt significantly better but she remained on 3 L which is up from her baseline. Her routine blood work is remarkable for chronic pancytopenia, creatinine of 1.24 and BUN of 25. Troponin was negative. Chest x-ray revealed cardiomegaly, small right pleural effusion, minimal bilateral pulmonary vascular congestion. She is being admitted for acute on chronic combined diastolic and systolic CHF. Past Medical History Past Medical History (Chronic Problems): Chronic Problems (Last Updated 01/25/18 @ 23:43 by Martha Hernandez MD) Atrial flutter (Chronic) Dilated cardiomyopathy (Chronic) Nonrheumatic mitral valve regurgitation (Chronic) Paroxysmal atrial fibrillation (Chronic) MGUS (monoclonal gammopathy of unknown significance) (Chronic) Pancytopenia (Chronic) Biventricular congestive heart failure (Chronic) Cardiac pacemaker in situ (Chronic) CKD (chronic kidney disease), stage III (Chronic) Chronic systolic congestive heart failure (Chronic) CHF (congestive heart failure) (Chronic) Depression (Chronic) Esophageal reflux (Chronic) Heart valve replaced (Chronic) Mitral AND Tricuspid valves replaced 05/19/09 @ [facility] HTN (hypertension) (Chronic) Primary cardiomyopathy (Chronic) 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) Chronic respiratory failure (Chronic) S/P mitral valve repair (Chronic) 05/19/09, Mitral valve repair with placement of #26 Fletcher- [place] annuloplasty ring, placement of Linn stitch AND tricuspid valve repair with placement of #28 tricuspid annuloplasty ring @ [facility] S/P tricuspid valve repair (Chronic) 05/19/09 @ [facility] Status post ablation of atrial flutter (Chronic) Ventricular tachycardia (Chronic) AICD (automatic cardioverter/defibrillator) present (Chronic) ICD Implant January 2007, ICD Extraction/upgrade to a biventricular pacemaker 06/28; Pulse generator change AND AV node ablation 09/23/12; Pacemaker generator change 05/22/17 Hyperlipidemia (Chronic) Pulmonary embolus (Chronic) Mural thrombus of cardiac apex (Chronic) Allergies levothyroxine sodium [From Synthroid] Allergy (Severe, Verified 01/23/18 14:09) Pt states it caused renal failure. thyroid, pork [From Perrin Thyroid] Allergy (Severe, Verified 01/23/18 14:09) Unknown Pt states it caused renal failure latex Allergy (Intermediate, Verified 01/23/18 14:09) Rash Home Medications: Ambulatory Orders Medication Instructions Recorded hydrALAZINE [Apresoline] 25 mg PO TID 06/29/14 Mirtazapine [Remeron] 45 mg PO QHS 10/03/15 Surgical History: cholecystectomy, hysterectomy, pacemaker implantation, tonsillectomy, - - ICD placement. Psychiatric History: Anxiety Lives: With Family Smoking Status: Never smoker Alcohol: None Drugs: None - *Family History Maternal History Items: Heart Disease Paternal History Items: Heart Disease Review of Systems Constitutional: Denies: Anorexia, Chills, Fever, Weakness Eyes: Denies: Blurred vision, Conjunctivae Inflammation, Drainage, Redness HEENT: Denies: Difficulty Hearing, Ear Pain, Eye Pain, Nasal Congestion, Sore Throat Cardiovascular: Reports: Edema, Orthopnea, Paroxysmal Noc. Dyspnea. Denies: Chest Pain, Chest Pressure, Heaviness, Light Headedness, Syncope Respiratory: Reports: Cough, Shortness of breath at rest, Shortness of breath upon exertion. Denies: Sputum production, Wheezing Gastrointestinal: Denies: Abdominal Pain, Constipation, Diarrhea, Nausea, Vomiting Genitourinary: Denies: Dysuria, Frequency, Hematuria Musculoskeletal: Denies: Arm Pain, Back Pain, Foot Pain Skin: Denies: Dryness, Rash Neurological: Denies: Balance problems, Double vision, Change in Speech, Slurred speech, Confusion, Headaches, Incoordination, Numbness Psychiatric: Reports: Depression. Denies: Anxiety Endocrine: Denies: Change in Body Habitus, Polydipsia VTE Information - Inpt Only VTE Present on Admission: No VTE Mechan Device Prophylaxis: None VTE Pharm Prophylaxis ordered?: No - Physical Exam General: Alert, Oriented x3, Cooperative, - - Moderately short of breath. HEENT: Atraumatic, PERRLA, EOMI Oral: Moist Mucosa, No Gingival or Mucosal Lesions/ Ulcerations Neck: Supple, No JVD, Negative Carotid Bruits, Trachea Midline, Thyroid Normal Size and Texture Lungs: No wheeze, Diminished, Rales, Rhonchi, Short of Breath, - - Markedly decreased breath sounds on the right base, crackles, scattered rhonchi. Cardiovascular: Regular rate, Regular Rhythm, Normal S1, Normal S2, PMI Normal Abdomen: Bowel Sounds Present, Soft, Non Tender, Non-Distended, No Hepato-splenomegaly Extremities: No clubbing, No cyanosis, No edema Skin: No rashes, No breakdown Lymphatic: No Cervical, Supraclavicular, or Inguinal Adenopathy Neurological: Cranial nerves II-XII grossly intact, Motor Exam 5/5 strength throughout Psych/Mental Status: Normal Affect, Appropriate, Alert and oriented to time, place, person, mood and affect Vital Signs Temp Pulse Resp BP Pulse Ox 98.5 F 70 24 H 135/82 H 97 01/25/18 23:40 01/25/18 23:40 01/25/18 23:40 01/25/18 23:40 01/25/18 23:40 Oxygen Flow Rate (L/min) 2 Oxygen Delivery Method Nasal Cannula Weight: 160 lb Body Mass Index (BMI) 27.4 Laboratory Tests Past 24 Hrs Clinical Impression(s) from Imaging Studies Chest X-Ray 01/25/18 21:27 IMPRESSION: No infiltrate. Stable cardiomegaly. Electronically Signed: Maurice Da Silva DO at 22:28 EDT , Service support , Abdomen/Pelvis CT 01/25/18 21:28 IMPRESSION: Questionable approximately 3 cm hypodense lesion in the head of the pancreas, difficult to further evaluate without oral and IV contrast. Marked cardiomegaly and moderate right pleural effusion. Cirrhotic morphology of the liver. No evidence of significant splenomegaly or ascites. Cortical renal thinning. No evidence of bowel obstruction. at 2319 Reported and signed by: Shahana Maddox MD Electronically Signed: Shahana Maddox MD at 23:18 EDT Tel , Service support , Assessment/Plan This is a 77 years old female patient presented to the emergency room because of worsening shortness of breath and she has been having concerns about her home oxygen that is not properly working and she was found to have acute on chronic combined systolic and diastolic CHF and slightly worsening right side small pleural effusion. 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 #2 right-sided small pleural effusion: Chest x-ray reviewed as well as previous chest x-rays. She does have chronic small right pleural effusion and she mentioned that she had thoracentesis in the past. Chest x-ray from today revealed very slightly larger right pleural effusion. This is likely transudative because of CHF. Plan for IV Lasix for diuresis. #3 paroxysmal atrial fibrillation: Status post pacemaker. Rate is controlled, continue Coreg for rate control and Coumadin for anticoagulation. INR is therapeutic. Patient used to be on amiodarone, not any longer. #4 biventricular congestive heart failure/cardiomyopathy: Status post ICD. She is no acute on chronic CHF as above. Plan as above. #5 stage III chronic kidney disease: Baseline creatinine has been around 1.3-1.7 mg/dL. Admission creatinine is 1.24, stable at baseline. Expect creatinine to go up with IV diuresis. #6 chronic respiratory failure: Secondary to CHF, patient has been on oxygen at 2 L. Son reported that her oxygen equipment is not working properly because she felt significantly better after she received oxygen in the emergency room. #7 hypertension: Blood pressure stable, continue Coreg, hydralazine and nitrates. #8 hyperlipidemia: She is not on statins. #9 DVT prophylaxis: On Coumadin, INR is therapeutic. Other chronic medical problems: #1 valvular heart disease, status post mitral valve repair and tricuspid valve repair. #2 depression. #3 GERD. #4 chronic pancytopenia/MGUS. This note was generated with [employer] dictation software. It may contain incorrect words, spelling, and punctuation that were not noted in checking the note before signing. Code Visit Inpatient E AND M: 48044 Init Hosp L3 01/26/18 0124 <Electronically signed by Martha Hernandez MD> Date Martha Hernandez MD Cosigner Signature: Date (if applicable) CC: Michael Muse MD; Martha Hernandez Signed EMERGENCY DEPARTMENT Observed: 01/26/2018 Status: F Source: [place] SUMMARY 12:00 AM [facility] REPOSITORY [facility] Medical Records Department [address] [place] [address] Emergency Department Summary 01/25/18 2211 MR#: [id number] Acct: [id number] Name: CAROLINE VALVERDE Rep #: [id number] : 1940 77 From: Agata Morejon MD PCP: Michael Muse MD Status: REG ER - ER Visit Summary Date of Service: 01/25/18 Chief Complaint: Shortness of breath History of Present Illness: The patient is a 77 F presenting with shortness of breath. She states this started today. She has shortness of breath worsened with exertion. She denies chest pain. She has had a dry cough. She denies fever. She has had diarrhea. She has history of CHF. She is on home O2 2 L. Her son states when he came home to check on her she was wearing the oxygen but was gasping for air. EMS was called. He is unsure of the oxygen tank was working at home. Physical Examination: Vitals are stable. Patient is afebrile. Alert no acute distress. 99% on 3 L HEENT exam is unremarkable. Neck is supple. Lungs are diminished bilaterally. Heart is regular rate and rhythm. Abdomen is soft mild diffuse tenderness with no rebound or guarding. Extremities are unremarkable. Skin is warm and dry. No focal neurologic deficit. Remainder of exam is unremarkable. Emergency Department Course and Treatment: EKG is paced unchanged from previous. Chest x-ray shows cardiomegaly, right pleural effusion. CBC shows a white count of 3.7, hemoglobin 9.7, platelets 117. INR is 2.1. Troponin is negative. Chemistries show sodium 147, BUN 25, creatinine 1.24. CT abdomen pelvis shows Questionable approximately 3 cm hypodense lesion in the head of the pancreas, difficult to further evaluate without oral and IV contrast. Marked cardiomegaly and moderate right pleural effusion. Cirrhotic morphology of the liver. No evidence of significant splenomegaly or ascites. Cortical renal thinning. No evidence of bowel obstruction. She is advised of these findings and will need follow-up for additional studies. Her son is unsure if her oxygen tank is working. She is improved on nasal cannula in the emergency department. Discussed with the hospitalist for observation. Disposition: Observation Impression: CHF exacerbation, right pleural effusion This note was generated with [employer] software. It may contain incorrect words, spelling, and punctuation that were not noted in review of the chart prior to signing ED Disposition - Plan for ED Patient: Chief Complaint: Shortness of Breath Referrals: Landry Muse MD [Primary Care Provider] - What to do if you have Problems For any increased pain, shortness of breath, bleeding, nausea or vomiting, chest pain, or any unexpected problems, contact your Primary Care Provider. Call [facility] ([phone]) or report to the closest Emergency Room. Call 911 if necessary. 01/26/18 0000 <Electronically signed by Agata Morejon MD> Date Agata Morejon MD Cosigner Signature (If Indicated): Date CC: Michael Muse MD CBC W/DIFF, AUTOMATED Collected: 01/25/2018 Status: F Source: [place] 10:01 PM [facility] REPOSITORY TYPE CODE TESTS RESULT OUT OF RANGE REFERENCE UNITS LAB L100.1000 4.4-11.0 K/mm3 Low WBC 3.7 LAB L100.1200 4.2-5.4 M/mm3 Low RBC 3.04 LAB L100.1300 12.0-15.0 g/dl Low HGB 9.7 LAB L100.1400 37-47 % Low HCT 31.6 LAB L100.1500 81-99 fL High MCV 103.9 LAB L100.1600 27.0-32.0 pg Normal MCH 31.9 LAB L100.1700 32-36 g/gl Low MCHC 30.7 LAB L100.1810 11.6-14.6 % Normal RDW CV 14.1 LAB L100.1820 35.1-43.9 fl High RDW SD 53.5 LAB L100.1900 150-450 K/mm3 Low PLT 117 LAB L100.2000 6.2-12.0 fl Normal MPV 9.9 LAB L100.2100 47-70 % Normal NEUT% 64.4 LAB L100.2200 19-41 % Low LY% 17.5 LAB L100.2300 0-10 % Normal MONO% 9.3 LAB L100.2400 0-5 % High EO% 8.5 LAB L100.2500 0-1 % Normal BASO% 0.3 LAB L100.2550 0.0-0.9 % Normal IM GRAN % 0.000 Result Comment: IG% - Immature Granulocytes (promyelocytes, myelocytes and metamyelocytes) > 1% indicates that a LEFT SHIFT is Present. LAB L100.2620 2.0-7.7 X10 3/uL Normal Absolute Neut 2.4 LAB L100.2720 0.83-4.51 X10 3/ul Low Absolute Lymph 0.64 Performed By: #### L100.0100 #### [facility] [address] [place], [address] PROTHROMBIN TIME W/INR Collected: 01/25/2018 Status: F Source: [place] 10:01 PM [facility] REPOSITORY TYPE CODE TESTS RESULT OUT OF RANGE REFERENCE UNITS LAB L300.4150 11.7-14.9 SECONDS High PROTIME 23.8 LAB L300.4200 Normal INR 2.1 Performed By: #### L300.3900 #### [facility] [address] [place], [place], [address] BASIC METABOLIC Collected: 01/25/2018 Status: F Source: [place] PROFILE (BMP) 10:01 PM [facility] REPOSITORY Order Comment: 'TROP' Serial specimen #1, #2, #3, or #4: 1 TYPE CODE TESTS RESULT OUT OF RANGE REFERENCE UNITS LAB L501.0100 74-106 mg/dL Normal GLU 93 Result Comment: Please note revised GLUCOSE reference range effective 2017. LAB L501.1000 7-18 mg/dL High BUN 25 LAB L501.1100 0.55-1.02 mg/dL High CREAT,SERUM 1.24 Result Comment: The validity of the calculated GFR AND GFRAA in patients over 70 years has not been determined. Clinical correlation is essential. LAB L501.1110 >60 mL/min Low EST GFR 45 Result Comment: Non- GFR Calc LAB L501.1115 >60 mL/min Low EST GFR - AA 54 Result Comment: GFR Calc LAB L501.1255 ml/min Normal Estimated CRCL 33.33 LAB L501.1300 10-20 RATIO High BUN/CRE 20.2 LAB L501.2200 8.5-10 mg/dL Low .1 CA 7.9 LAB L501.5300 136-14 mmol/L High 5 NA 147 LAB L501.5600 3.5-5. mmol/L Normal 1 K 3.7 LAB L501.5900 98-107 mmol/L High CL 112 LAB L501.6100 21.0-3 mmol/L Normal 2.0 CO2 30.0 LAB L501.6200 5-15 Normal GAP 5 Performed By: #### L500.2500, L501.4010 #### [facility] [address] [place], [address] TROPONIN-I Collected: 01/25/2018 Status: F Source: [place] 10:01 PM [facility] REPOSITORY Order Comment: 'TROP' Serial specimen #1, #2, #3, or #4: 1 TYPE CODE TESTS RESULT OUT OF RANGE REFERENCE UNITS LAB L501.4010 <0.06 ng/mL Normal < 0.02 TROPONIN-I Result Comment: TROPONIN-I EXPECTED VALUES <0.05 NEGATIVE 0.06 - 0.59 AT RISK OF VT > OR = 0.60 SUGGEST VT Performed By: #### L500.2500, L501.4010 #### [facility] [address] [place], [address] BNP,B-TYPE NATRIURETIC Collected: 01/25/2018 Status: F Source: [place]PT[place] 10:01 PM [facility] REPOSITORY TYPE CODE TESTS RESULT OUT OF RANGE REFERENCE UNITS LAB L503.6620 0-100 pg/mL High B-TYPE 1252.2 ADELAIDA PEP Performed By: #### L503.6620 #### [facility] [address] [place], [address] CHEST 1 VIEW Observed: 01/25/2018 Status: F Source: [place] (PORTABLE) 9:28 PM [facility] REPOSITORY [facility] Imaging Services [address] [place] [id number] Chest 1 View (Portable) MR#: [id number] Acct: [id number] Name: CAROLINE VALVERDE Rep #: [id number] : 1940 F 77 From: Maurice Da Silva PCP: Michael Muse MD Status: REG ER Study: Chest 1 View (Portable) Date of Exam: 01/25/18 Exam# [id number] Ordering Dr: Agata Morejon MD STUDY: X-RAY CHEST REASON FOR EXAM: Female, 77 years old. Increased shortness of breath TECHNIQUE: Single AP portable view of the chest. COMPARISON: 05/28/2017. FINDINGS: Left-sided pacemaker. The lungs are clear and expanded. There is no demonstrated pleural abnormality. There is moderate cardiac enlargement. Patient status post sternotomy. Normal mediastinum and mariano. Normal visualized pulmonary arteries. Normal visualized aortic arch and descending thoracic aorta. Normal visualized thoracic spine. Normal visualized ribs, clavicles, and shoulders. There is no demonstrated abnormality of the visualized soft tissue structures of the upper abdomen. RAD/Chest 1 View (Portable) IMPRESSION: No infiltrate. Stable cardiomegaly. Electronically Signed: Maurice Da Silva DO at 22:28 EDT , Service support , CC: Agata Morejon MD; Michael Muse MD Second Chef: Signed ABDOMEN/PELVIS WITHOUT Observed: 01/25/2018 Status: F Source: [place]ICA CONT 9:28 PM [facility] REPOSITORY [facility] Imaging Services [address] [place] [address] Abdomen/Pelvis without Cont MR#: [id number] Acct: [id number] Name: CAROLINE VALVERDE Rep #: [id number] : 1940 F 77 From: Shahana Maddox MD PCP: Michael Muse MD Status: REG ER Study: Abdomen/Pelvis without Cont Date of Exam: 01/25/18 Exam# [id number] Ordering Dr: Agata Morejon MD CT Abdomen And Pelvis W/O Contrast INDICATION: SOB since this am, tender abd COMPARISON: None TECHNIQUE: Noncontrast axial CT examination of the abdomen and pelvis with coronal and sagittal reformatted images. FINDINGS: The heart size is markedly enlarged. A moderate-sized right- sided pleural effusion is present. The liver is normal in size. Liver contour is mildly nodular, cannot exclude cirrhosis. The gallbladder is surgically absent. The spleen is at the upper limits of normal for size. There is a questionable 3 cm hypodense lesion seen projecting at the level of the head of the pancreas, this is difficult to confirm due to the lack of oral and IV contrast. The body and tail of the pancreas appear atrophic. The kidneys demonstrate cortical renal thinning. No evidence of nephrolithiasis or hydronephrosis. The bowel loops are nondistended. The appendix is not well seen. There is no evidence of free air or free fluid. The osseous structures are osteopenic and demonstrate a superior endplate compression deformity of T11 and mild multilevel degenerative disc disease. CT/Abdomen/Pelvis without Cont IMPRESSION: Questionable approximately 3 cm hypodense lesion in the head of the pancreas, difficult to further evaluate without oral and IV contrast. Marked cardiomegaly and moderate right pleural effusion. Cirrhotic morphology of the liver. No evidence of significant splenomegaly or ascites. Cortical renal thinning. No evidence of bowel obstruction. at 2319 Reported and signed by: Shahana Maddox MD Electronically Signed: Shahana Maddox MD at 23:18 EDT Tel , Service support , CC: Agata Morejon MD; Michael Muse MD Second Chef: Signed PACEMAKER CHECK Observed: 01/22/2018 Status: F Source: [place] 4:41 PM [facility] REPOSITORY [facility] [address] [place] [address]. [address] [place] [address] Pacemaker Check Date of Service: 01/09/18 1541 MR#: [id number] Acct: [id number] Name: CAROLINE VALVERDE Rep #: [id number] : 1940 From: Angelica Kim Age/Sex: 77/F Location: [facility] [place] Status: Signed Comments Summary Comments: Remote Bi-VICD Evaluation: Remote interrogation shows no VT/VF episodes and ongoing AT/AF episode, 100% total time since last check 10/07/17. Presenting e-gram shows Bi-Vpaced @ 70 ppm with underlying atrial flutter. bi-Vpaced=95.9%. Battery longevity approx 5.5 yrs. Lead impedances, sensing and adaptive pace/sense thresholds remain stable. Normal remote Bi-VICD function. Next f/u appt scheduled for in 3 ms. Device Device Date Interviewed: 01/09/18 Follow-up Location: remote Interview Reason: scheduled follow up Wrecker Operator: [employer]tronic Name: Viva XT [employer] MANAGER-D Model: [id number] Serial #: [id number] Implant Date: 05/22/17 Year(s): 0 Implant Physician: Dr. Kwasi Fisher/[facility] Patient Characteristics Atrial Indication: Permanent atrial fibrillation Ventricular Indication: Nonsustained VT Patient Substrate: Nonischemic cardiomyopathy (Hypertrophic) Ejection fraction %: 20 to 24 (07/2016) By: Echo Underlying rhythm: Atrial fibrillation Pacemaker Dependent: Yes (no intrinsic R waves) Device Characteristics Device: Biventricular Type: Implantable defibrillator Remote Follow-Up: [facility] Leads Lead #1 Wrecker Operator Lead 1: Medtronic Model Lead 1: 5076 Serial# Lead 1: [id number] Date Implanted Lead 1: 07/16/07 Position Lead 1: RA Lead #2 Wrecker Operator Lead 2: Medtronic Model Lead 2: 6947 Serial# Lead 2: [id number] Date Implanted Lead 2: 07/16/07 Position Lead 2: RV Lead #3 Wrecker Operator Lead 3: Medtronic Model Lead 3: 4193 Serial# Lead 3: [id number] Date Implanted Lead 3: 07/16/07 Position Lead 3: LV Diagnostics Pacing % RA Pacin % RV Pacin.1 % LV Pacin.9 Mode Switching Total # Episodes: 1 % Mode switched: 100 Arrhythmias VF Episodes: 0 Fast VT Episodes: 0 Slow VT Episodes: 0 Non-Sust Episodes: 0 Measurements Battery Voltage (V): 2.99 Charge Time (Sec): 4.2 MIRIAM Voltage: 2.73 Predicted Remaining Longevity (months or years): 5.5 years RA Measurements Signal Amplitude (mV): 1.3 Impedance (Ohms): 323 RV Measurements Signal Amplitude (mV): 17.6 Impedance (Ohms): 342 Threshold Voltage: 1.0 @ PW(ms): 0.4 Shock Impedance (Ohms): 34 LV Measurements Impedance (Ohms): 342 Threshold Voltage: 1.87 @ PW(ms): 0.4 Tachy Settings VF Therapies VF Therapy Status On On On On On On Energy 20 35 35 35 35 35 Pathway ATP: During charging on FVT Therapies FVT Therapy Status Off Off Off Off Off Off VT Therapies VT Therapy Status On On On On On On Comments: Melvin Settings Melvin Settings Pacemaker Mode VVIR Lower Rate Limit (bpm) 70 Hysteresis Rate (bpm) Max Track Rate (bpm) Max Sensor Rate (bpm) 100 Max AV Delay (msec) Max PV Delay (msec) Max PVARP (msec) Output/Sensing V/PW (ms) 2.5/0.4 3.5/0.4 Sensitivity RA RV LV Comments: Billing Codes ICD Device Billing: ICD Dev Interrogate (Rmt) Assessment AND Plan Problems 1. Ventricular tachycardia I47.2 2. AICD (automatic cardioverter/defibrillator) present Z95.810 3. Chronic respiratory failure J96.10 01/22/18 1519 <Electronically signed by Angelica Kim > Date Angelica Kim 01/22/18 1641<Electronically signed by Carlos Mcallister MD> Cosign Signature: Date (if applicable) Carlos Mcallister MD CC: PROTHROMBIN TIME W/INR Collected: 01/22/2018 Status: F Source: [place] 10:30 AM [facility] REPOSITORY Order Comment: HOMEDRAW TYPE CODE TESTS RESULT OUT OF RANGE REFERENCE UNITS LAB L300.4150 11.7-14.9 SECONDS High PROTIME 34.5 LAB L300.4200 Normal INR 3.4 Performed By: #### L300.3900 #### [facility] [address] [place], [address] PROTHROMBIN TIME W/INR Collected: 12/30/2017 Status: F Source: [place] 10:45 AM [facility] REPOSITORY Order Comment: HOMEDRAW ORDERED PT, INTERNAL ORDER BY MY DAMON FOR [facility] TYPE CODE TESTS RESULT OUT OF RANGE REFERENCE UNITS LAB L300.4150 11.7-14.9 SECONDS High PROTIME 24.4 LAB L300.4200 Normal INR 2.2 Performed By: #### L300.3900, L500.2500 #### [facility] [address] [place], [place], [address] BASIC METABOLIC Collected: 12/30/2017 Status: F Source: [place] PROFILE (BMP) 10:45 AM [facility] REPOSITORY Order Comment: HOMEDRAW ORDERED PT, INTERNAL ORDER BY MY DAMON FOR BMP Comments: Lasix increased. Outreach to do same time as PT/IN Comments: Lasix increased. Outreach to do same time as PT/IN TYPE CODE TESTS RESULT OUT OF RANGE REFERENCE UNITS LAB L501.0100 74-106 mg/dL Normal GLU 87 Result Comment: Please note revised GLUCOSE reference range effective 2017. LAB L501.1000 7-18 mg/dL High BUN 35 LAB L501.1100 0.55-1.02 mg/dL High CREAT,SERUM 1.48 Result Comment: The validity of the calculated GFR AND GFRAA in patients over 70 years has not been determined. Clinical correlation is essential. LAB L501.1110 >60 mL/min Low EST GFR 36 Result Comment: Non- GFR Calc LAB L501.1115 >60 mL/min Low EST GFR - AA 44 Result Comment: GFR Calc LAB L501.1300 10-20 RATIO High BUN/CRE 23.6 LAB L501.2200 8.5-10.1 mg/dL Low CA 8.2 LAB L501.5300 136-145 mmol/L NA Normal 145 LAB L501.5600 3.5-5.1 mmol/L K Normal 3.7 LAB L501.5900 98-107 mmol/L High CL 108 LAB L501.6100 21.0-32.0 mmol/L Normal CO2 29.0 LAB L501.6200 5-15 Normal GAP 8 Performed By: #### L300.3900, L500.2500 #### [facility] [address] [place], [address] PROTHROMBIN TIME W/INR Collected: 12/16/2017 Status: F Source: [place] 10:40 AM [facility] REPOSITORY Order Comment: HOMEDRAW TYPE CODE TESTS RESULT OUT OF RANGE REFERENCE UNITS LAB L300.4150 11.7-14.9 SECONDS High PROTIME 28.6 LAB L300.4200 Normal INR 2.7 Performed By: #### L300.3900 #### [facility] [address] [place], [address] CARDIOLOGY VISIT Observed: 12/13/2017 Status: F Source: [place] REPORT 12:02 PM [facility] REPOSITORY [facility] [address] [place] [address] OFFICE VISIT Date of Service: 12/12/17 MR#: [id number] Acct: [id number] Name: CAROLINE VALVERDE Rep #: [id number] : 1940 Provider: VAHID Damon Age/Sex: 77/F Location: [facility] [place] Status: Signed HPI HPI Details: CAROLINE VALVERDE, is a 77 F who presents to the office today for a cardiovascular outpatient follow-up. She has a history of nonischemic cardiomyopathy, chronic systolic congestive heart failure [place] Association class IV, valvular heart disease status post mitral valve repair with #26 [place] angioplasty ring and tricuspid valve repair with a #28 tricuspid ring, atrial fibrillation/flutter post AV node ablation with Bi-V ICD placement, left atrial appendage ligation, PFO, hypertension, hyperlipidemia, and syncope. Pt. states SOB with exertion. She denies lower extremity edema. She state generalized weakness. She states she gets chest achiness with exertion along with her SOB. This is left sided and doesn't occur with every episode of exertion. She has increased her oxygen from 2 liters to 2.5 liters. Pt. denies arm, jaw, or neck discomfort. Her exercise tolerance is very minimal. Pt. denies symptoms of palpitations, lightheadedness, dizziness, near syncope, or syncopal episodes. Pt. denies edema or claudication issues. Pt. denies orthopnea, PND, fever, chills, blood in urine, or blood in stool. Intake Vital Signs12/12/17 Height 5 ft 4 in 12/12/17 Weight: 164 lb 12/12/17 Body Mass Index (BMI) 28.1 12/12/17 Blood Pressure 118/74 12/12/17 Blood Pressure Location Lt brachial Intake Visit Reasons: per MS, inc fatigue, sob Party Plan Sales Agent Required: No Accompanied by: Son Is patient in pain?: No Allergies levothyroxine sodium [From Synthroid] Allergy (Severe, Verified 12/12/17 15:33) Pt states it caused renal failure. thyroid, pork [From Perrin Thyroid] Allergy (Severe, Verified 12/12/17 15:33) Unknown latex Allergy (Intermediate, Verified 12/12/17 15:33) Rash Medications hydrALAZINE [Apresoline] 25 mg PO TID 06/29/14 [History Confirmed 12/12/17] Mirtazapine [Remeron] 45 mg PO QHS 10/03/15 [History Confirmed 12/12/17] Sertraline HCl [Zoloft] 100 mg PO QHS 10/03/15 [History Confirmed 12/12/17] Carvedilol [Coreg (Beta Annia)] 6.25 mg PO BID tab 01/14/16 [Rx Confirmed 12/12/17] Warfarin [Coumadin (PBKC)] 2 mg PO DAILY 05/21/17 [History Confirmed 12/12/17] Sertraline HCl [Zoloft] 50 mg PO 1200 05/28/17 [History Confirmed 12/12/17] Dicyclomine HCl [Bentyl] 10 mg PO DAILY 08/29/17 [History Confirmed 12/12/17] Melatonin/Pyridoxine HCl (B6) [Melatonin 10 mg Tablet] 10 mg PO DAILY 08/29/17 [History Confirmed 12/12/17] isosorbide dinitrate 10 mg tablet 5 mg PO TID #1 tab 10/24/17 [Rx Confirmed 12/12/17] cyanocobalamin (vit B-12) 500 mcg tablet 500 mcg PO BID tab 12/12/17 [History Confirmed 12/12/17] furosemide 20 mg tablet 40 mg PO QDAY tab 12/12/17 [History Confirmed 12/12/17] lorazepam 0.5 mg tablet 0.5 mg PO BID 12/12/17 [History Confirmed 12/12/17] potassium chloride ER 10 mEq capsule,extended release 10 meq PO DAILY cap 12/12/17 [History Confirmed 12/12/17] Ejection fraction %: 20 to 24 PFSH Medical History detention current use of anticoagulant (Chronic) Paroxysmal atrial fibrillation (Chronic) MGUS (monoclonal gammopathy of unknown significance) (Chronic) Pancytopenia (Chronic) Thrombocytopenia (Chronic) Leukopenia (Chronic) Anemia (Chronic) Biventricular congestive heart failure (Chronic) Cardiac pacemaker in situ (Chronic) CKD (chronic kidney disease), stage III (Chronic) Chronic systolic congestive heart failure (Chronic) CHF (congestive heart failure) (Chronic) HTN (hypertension) (Chronic) Primary cardiomyopathy (Chronic) 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) Chronic respiratory failure (Chronic) Ventricular tachycardia (Chronic) AICD (automatic cardioverter/defibrillator) present (Chronic) Chronic renal insufficiency (Chronic) Hyperlipidemia (Chronic) Shortness of breath (Acute) Pulmonary embolus (Chronic) Mural thrombus of cardiac apex (Chronic) History of cardioversion (Acute) Pacemaker (Acute) history of temporary dialysis (Acute) ligation of left atrial appendage (Acute) Surgical History S/P mitral valve repair (Chronic) S/P tricuspid valve repair (Chronic) Status post ablation of atrial flutter (Chronic) H/O cardiac radiofrequency ablation (Acute) H/O tricuspid valve repair (Acute) History of cardiac cath (Acute) Hx of cholecystectomy (Acute) Family History Father CAD (coronary artery disease) Myocardial infarction Mother CVA (cerebral vascular accident) CHF (congestive heart failure) Daughter Arthritis Atrial fibrillation Hyperlipidemia Social History Smoking Status: Never smoker alcohol intake: never substance use type: does not use diet: low salt caffeine: No what type of physical activity do you participate in: none seatbelt use: always do you feel safe at home: Yes ROS Const Const: Positive for fatigue and weakness; negative for body ache, fever(s) or chills ENT ENT: Negative for dizziness Cardio Chest Pain: Yes Palpitations: No Edema: None Muscle aches with walking: None Resp Respiratory: Positive for SOB with activity; negative for SOB at rest, SOB orthopnea\SOB lying down or paroxysmal nocturnal dyspnea GI GI: Negative nausea, black,tarry stools, bright, red blood in stools or vomiting blood/hematemesis : Negative for hematuria or frequent nighttime urination/ nocturia Musc Musc: Negative for muscle aches/ myalgia Neuro Neuro: Positive for weakness; negative for dizziness, lightheadedness, near syncope, syncope or orthostatic symptoms Endo Endo: Positive for fatigue Cardiology Exam Const Appearance: cooperative, healthy appearing, comfortable and no acute distress Orientation: alert, awake and oriented x3 Head Head: normal to inspection Mouth: oral mucosae normal Neck Neck: no JVD and normal visual inspection Carotids: normal carotid upstroke Chest Chest inspection: normal inspection of the chest and normal respiratory effort Auscultation: Bilateral: Clear to Auscultation Cardio Rate: regular rate Rhythm: regular rhythm Heart sounds: S2 normal and murmur; negative rub or gallop Murmur: Grade 2/6 and LLSB GI GI: normal to inspection Neuro General: alert, awake, oriented x3 and CN's II-XI intact bilaterally Skin Skin: no rashes or lesions noted Extremities Pulses: Normal: Right Posterior Tibial Pulse, Left Posterior Tibial Pulse, Right Radial Pulse, Left Radial Pulse Lower Extremity Edema: None: Bilateral Psych Psychological: normal affect Supplemental Info Pacemaker check from September 2017 showed no VT/VF episodes and 1 AT/AF episode ongoing in her percent of total time. Presented rhythm was Bi-V paced at 73 ppm with underlying chronic atrial fibrillation. Battery longevity is approximately 6.1 years. Echocardiogram from July 2016 showed an estimated ejection fraction of 20%, severely dilated right ventricle, severely segmental dysfunction of right ventricle, severely enlarged left atrium, severely enlarged right atrium, and angioplasty ring is noted in the mitral position, mild diffuse mitral thickening, mitral valve doming/ hockey sticking, mild to moderate mitral valve stenosis, mild to moderate eccentric mitral valve insufficiency, and angioplasty ring is noted in the tricuspid position, moderate transvalvular insufficiency of the tricuspid valve, mild focal aortic valve calcification, RVSP of 59 mmHg, and ICD or pacer leads identified in both right atrium and right ventricle. No thrombus was visualized in left atrium. Heart catheterization from March 2009 showed left main coronary artery as normal, LAD as normal, RCA as normal, LCx as a nondominant vessel and is normal. Assessment AND Plan 1. Dyspnea on exertion R06.09 DUC Ferrara Patient will increase her Lasix to 40 mg twice daily. She will do this for the next 3 days and call our office with an update. If her breathing does not improve with this adjustment we will obtain laboratory work and chest x-ray for further evaluation. 2. Paroxysmal atrial fibrillation I48.0 DUC Ferrara Patient appears to be in regular rhythm. Her heart rate is well controlled. She will continue with beta-annia and factor Coumadin therapy. 3. Acute on chronic systolic congestive heart failure I50.23 DUC Ferrara Patient's most recent echocardiogram from July 2016 showed an estimated ejection fraction of 20%, severely dilated right ventricle, severely segmental dysfunction of right ventricle, severely enlarged left atrium, severely enlarged and right atrium. Patient declined repeat echocardiogram to evaluate LV function. She wants to see if diuretic adjustment will help symptoms before proceeding with this. We will discuss this further after adjustment of diuretic. 4. S/P mitral valve repair Z98.890 DUC Ferrara Patient's echocardiogram from July 2016 showed stable angioplasty ring in mitral position, mild diffuse mitral valve thickening, mild mitral valve doming/hockey sticking, mild to moderate mitral valve stenosis, and mild to moderate mitral valve insufficiency. Patient declined repeat echocardiogram to evaluate valvular status. Again, this will be discussed after diuretic adjustment and if symptoms improve. 5. S/P tricuspid valve repair Z98.890 DUC Ferrara Patient's echocardiogram from July 2016 shows stable angioplasty ring noted in tricuspid position, moderate transvalvular insufficiency of the tricuspid valve, an RVSP of 59 mmHg. As noted above patient declined repeat echocardiogram. This will be discussed in the future. 6. Chest pain R07.89 DUC Ferrara Patient's heart catheterization from March 2009 showed normal coronary arteries. Patient does acknowledge chest pain on exertion with her shortness of breath. She declined stress test at this time. We will continue to monitor this. Hopefully as her breathing improves with diuretic adjustment her pain also subsides. 7. AICD (automatic cardioverter/defibrillator) present Z95.810 Plan - DUC Cherry Patient's most recent pacemaker check from September 2017 showed no VT/VF episodes and 1 AT/AF episode ongoing in her percent of total time. Presented rhythm was Bi-V paced at 73 ppm with underlying chronic atrial fibrillation. Battery longevity is approximately 6.1 years. Patient's pacemaker/ICD appears to be functioning appropriately. We will continue to monitor this with routine/scheduled follow-ups. 8. Anemia, unspecified type D64.9 Plan - DUC Cherry Her most recent hemoglobin from October 2017 was 10.3. She denies any iron transfusions or blood transfusions. Patient was asked to keep in touch with primary manager credit collections or primary care physician for this. Plan Detail Additional Comments - DUC Cherry Discussed the above patient with Dr. Mitchell in Dr. Mcallister's absence, he agrees with the plan of care. Thank you for allowing us to participate in the patients plan of care, if you have any questions please do not hesitate to call. This note was generated using a voice recognition system and there may be incorrect words, spelling or punctuation that were not noted when reviewing the office note prior to saving. Follow Up 11 Months (PFM) Coding Level of Care Code Off vis,est,level 4 Diagnoses Dyspnea on exertion R06.09 Paroxysmal atrial fibrillation I48.0 Acute on chronic systolic congestive heart failure I50.23 Heart failure type: systolic Heart failure chronicity: acute on chronic S/P mitral valve repair Z98.890 S/P tricuspid valve repair Z98.890 Chest pain R07.89 Chest pain type: other chest pain AICD (automatic cardioverter/defibrillator) present Z95.810 Anemia, unspecified type D64.9 Anemia type: unspecified type Coding Level of Care Code Off vis,est,level 4 Diagnoses Dyspnea on exertion R06.09 Paroxysmal atrial fibrillation I48.0 Acute on chronic systolic congestive heart failure I50.23 Heart failure type: systolic Heart failure chronicity: acute on chronic S/P mitral valve repair Z98.890 S/P tricuspid valve repair Z98.890 Chest pain R07.89 Chest pain type: other chest pain AICD (automatic cardioverter/defibrillator) present Z95.810 Anemia, unspecified type D64.9 Anemia type: unspecified type 12/12/17 1706 <Electronically signed by My NICOLASC> Date My Damon PUBLIC RELATIONS OFFICER-C 12/13/17 1202<Electronically signed by Otilio Mitchell MD> Cosigner Signature: Date (if applicable) Otilio Mitchell MD CC: Michael Muse MD PROTHROMBIN TIME W/INR Collected: 11/25/2017 Status: F Source: [place] 10:05 AM [facility] REPOSITORY TYPE CODE TESTS RESULT OUT OF RANGE REFERENCE UNITS LAB L300.4150 11.7-14.9 SECONDS High PROTIME 29.4 LAB L300.4200 Normal INR 2.8 Performed By: #### L300.3900 #### [facility] [address] [place], [address] BNP,B-TYPE NATRIURETIC Collected: 11/14/2017 Status: F Source: [place] PEPTIDE 12:22 PM [facility] REPOSITORY TYPE CODE TESTS RESULT OUT OF RANGE REFERENCE UNITS LAB L503.6620 0-100 pg/mL High B-TYPE 776.2 ADELAIDA PEP Performed By: #### L503.6620 #### [facility] [address] [place], [address] COMPREHENSIVE METABOLIC Collected: 11/14/2017 Status: F Source: [place] PROFIL 12:22 PM [facility] REPOSITORY Order Comment: Order Date: 11/14/17 Order Info: [id number] - CMP Order Info: 3016-3 - TSH TYPE CODE TESTS RESULT OUT OF RANGE REFERENCE UNITS LAB L501.0100 74-106 mg/dL Normal GLU 84 Result Comment: Please note revised GLUCOSE reference range effective 2017. LAB L501.1000 7-18 mg/dL High BUN 24 LAB L501.1100 0.55-1.02 mg/dL High CREAT,SERUM 1.36 Result Comment: The validity of the calculated GFR AND GFRAA in patients over 70 years has not been determined. Clinical correlation is essential. LAB L501.1110 >60 mL/min Low EST GFR 40 Result Comment: Non- GFR Calc LAB L501.1115 >60 mL/min Low EST GFR - AA 49 Result Comment: GFR Calc LAB L501.1300 10-20 RATIO Normal BUN/CRE 17.6 LAB L501.1500 6.4-8.2 g/dL T Normal PROT 6.7 LAB L501.1800 3.2-5.0 g/dL Normal ALB 3.6 LAB L501.1950 2.2-4.2 g/dL Normal GLOB 3.1 LAB L501.2000 0.9-2.4 RATIO Normal A/G 1.2 LAB L501.2200 8.5-10.1 mg/dL CA Normal 8.5 LAB L501.4100 15-37 U/L Low AST 14 LAB L501.4305 45-117 U/L Normal ALK P 115 LAB L501.4405 13-56 U/L Low ALT 12 Result Comment: Please note revised ALT reference range effective 2017. LAB L501.4600 0.20-1.00 mg/dL Normal T BILI 0.50 LAB L501.5300 136-145 mmol/L Normal NA 144 LAB L501.5600 3.5-5.1 mmol/L Normal K 3.9 LAB L501.5900 98-107 mmol/L Normal CL 107 LAB L501.6100 21.0-32.0 mmol/L Normal CO2 30.0 LAB L501.6200 5-15 Normal GAP 7 Performed By: #### L500.4050, L501.9520, L100.0100, L506.1000 #### [facility] [address] [place], [address] THYROID STIM HORMONE Collected: 11/14/2017 Status: F Source: ERICA (TSH) 12:22 PM [facility] REPOSITORY Order Comment: Order Date: 02/23/18 Order Info: [id number] - CMP Order Info: [id number] - TSH TYPE CODE TESTS RESULT OUT OF RANGE REFERENCE UNITS LAB L501.9520 0.358-3.74 uIU/mL High TSH 6.17 Performed By: #### L500.4050, L501.9520, L100.0100, L506.1000 #### [facility] Prabhjot Feng [place], [place], [id number] CBC W/DIFF, AUTOMATED Collected: 11/14/2017 Status: F Source: ERICA 12:22 PM [facility] REPOSITORY Order Comment: Order Date: 11/14/17 Order Info: [id number] - CBCD TYPE CODE TESTS RESULT OUT OF RANGE REFERENCE UNITS LAB L100.1000 4.4-11.0 K/mm3 Low WBC 3.5 LAB L100.1200 4.2-5.4 M/mm3 Low RBC 3.19 LAB L100.1300 12.0-15.0 g/dl Low HGB 10.3 LAB L100.1400 37-47 % Low HCT 33.4 LAB L100.1500 81-99 fL High MCV 104.7 LAB L100.1600 27.0-32.0 pg High MCH 32.3 LAB L100.1700 32-36 g/gl Low MCHC 30.8 LAB L100.1810 11.6-14.6 % Normal RDW CV 14.1 LAB L100.1820 35.1-43.9 fl High RDW SD 54.3 LAB L100.1900 150-450 K/mm3 Low PLT 129 LAB L100.2000 6.2-12.0 fl Normal MPV 10.6 LAB L100.2100 47-70 % High NEUT% 70.3 LAB L100.2200 19-41 % Low LY% 16.1 LAB L100.2300 0-10 % Normal MONO% 8.5 LAB L100.2400 0-5 % Normal EO% 4.0 LAB L100.2500 0-1 % Normal BASO% 0.8 LAB L100.2550 0.0-0.9 % Normal IM GRAN % 0.300 Result Comment: IG% - Immature Granulocytes (promyelocytes, myelocytes and metamyelocytes) > 1% indicates that a LEFT SHIFT is Present. LAB L100.2620 2.0-7.7 X10 3/uL Normal Absolute Neut 2.5 LAB L100.2720 0.83-4.51 X10 3/ul Low Absolute Lymph 0.57 LAB L100.5500 ADEQ PLT Normal EST SLT DEC LAB L100.7300 ANISO Normal 1+ LAB L100.7800 Normal MACROCYTE 1+ Performed By: #### L500.4050, L501.9520, L100.0100, L506.1000 #### [facility] Laboratory [address] [place], [address] VITAMIN D,25 HYDROXY Collected: 11/14/2017 Status: F Source: ERICA 12:22 PM [facility] REPOSITORY Order Comment: Order Date: 11/14/17 Order Info: 00309-0 - VITD25 TYPE CODE TESTS RESULT OUT OF REFERENCE UNITS RANGE LAB L506.1000 19.95-100.01 ng/mL Low Vitamin D 8.0 25-OH Result Comment: Vitamin D 25(OH) Status Range Deficiency <20 ng/mL (50nmol/L) Insuffciency 20 - 30 ng/mL (50 - 75 nmol/L) Sufficiency 30 - 100 ng/mL (75 - 250 nmol/L) Toxicity >100 ng/mL (>250 nmol/L) Performed By: #### L500.4050, L501.9520, L100.0100, L506.1000 #### [facility] Laboratory [address] [place], [address] PROTHROMBIN TIME W/INR Collected: 11/11/2017 Status: F Source: ERICA 10:50 AM [facility] REPOSITORY TYPE CODE TESTS RESULT OUT OF RANGE REFERENCE UNITS LAB L300.4150 11.7-14.9 SECONDS High PROTIME 26.4 LAB L300.4200 Normal INR 2.5 Performed By: #### L300.3900 #### [facility] Laboratory [address] [place], [address] BONE SURVEY COMP(AXIAL Observed: 10/31/2017 Status: F Source: ERICA AND APPEND) 2:34 PM [facility] REPOSITORY [facility] Imaging Services [address] [place] [address] Bone Survey Comp(Axial AND Append) MR#: [id number] Acct: [id number] Name: CAROLINE VALVERDE Rep #: [id number] : 1940 F 77 From: Phuc Kennedy DO PCP: Michael Muse MD Status: REG CLI Study: Bone Survey Comp(Axial AND Append) Date of Exam: 10/31/17 Exam# [id number] Ordering Dr: Ciara Arambula MD STUDY: X-RAY BONE SURVEY COMPLETE REASON FOR EXAM: Female, 77 years old. Clonal gammopathy. TECHNIQUE: Single PA view of the chest. One view of the pelvis was obtained. 2 views of the cervical spine were obtained. 2 views of the thoracic spine were obtained. 2 views of the lumbar spine were obtained. AP views of the femur. AP views of the humerus and forearm AP and lateral views of the skull were obtained. COMPARISON: None. FINDINGS: CHEST: There is pleural thickening versus pleural effusion at the right lung base. There is atelectasis along the horizontal fissure. The heart is enlarged. There is a dual lead cardiac pacemaker as well as evidence of median sternotomy. Normal mediastinum and mariano. Normal visualized pulmonary arteries. There is atherosclerotic calcification of the aortic arch with tortuosity. Thoracic spine is obscured.. There is a remote fracture of the right humeral neck with nonunion and cephalad displacement of the humeral shaft. Post cystectomy clips are seen in the right upper quadrant. PELVIS: There is a non-specific bowel gas pattern. Normal visualized soft tissue structures. Normal bilateral iliac wings, sacroiliac joints and visualized sacrum. Normal visualized bilateral superior and inferior pubic rami. Normal pubic symphysis. Normal ischial tuberosities. Normal visualized right femoral head. Normal right acetabulum. There is mild articular joint space narrowing of the right hip. Normal visualized left femoral head. Normal left acetabulum. There is mild articular joint space narrowing of the left hip. CERVICAL SPINE: There are degenerative changes of the anterior atlantoaxial articulation. Normal odontoid process. Normal cervical lordosis. Normal vertebral bodies and endplates. Normal disc space heights. There is maintenance of normal alignment without evidence of vertebral fracture. The soft tissue structures are unremarkable. THORACIC SPINE: Normal kyphosis of the thoracic spine. There is no substantial scoliosis. Normal thoracic vertebrae and endplates. Normal disc space heights. No fracture or loss of vertebral height. The soft tissue structures are unremarkable. LUMBAR SPINE: There is straightening of the normal lumbar lordosis. There is no substantial scoliosis. There is a normal alignment of the vertebrae. There is generalized demineralization of the vertebral bodies. Normal disc space heights. There is no fracture or loss of vertebral axial height The soft tissue structures are unremarkable. RIGHT FEMUR: Normal visualized femur. Normal visualized soft tissue structure. Normal right tibia and fibula LEFT FEMUR: Normal visualized femur. Normal visualized soft tissue structure. Normal left tibia and fibula. RIGHT HUMERUS :Normal visualized humerus. There is no demonstrated fracture or osseous destructive process. Normal right forearm. There is no demonstrated soft tissue abnormality. LEFT HUMERUS:Normal visualized humerus. There is no demonstrated fracture or osseous destructive process. Normal left forearm. There is no demonstrated soft tissue abnormality. SKULL: There is no demonstrated soft tissue swelling. Normal osseous calvarium. Normal visualized facial bones. Normal visualized paranasal sinuses. RAD/Bone Survey Comp(Axial AND Append) IMPRESSION: No evidence of lytic or blastic lesions. Electronically Signed: Phuc Kennedy DO at 18:52 EST Tel [phone], Service support , CC: Michael Muse MD; Ciara Arambula MD Second Chef: Signed PROTHROMBIN TIME W/INR Collected: 10/27/2017 Status: F Source: ERICA 11:25 AM [facility] REPOSITORY TYPE CODE TESTS RESULT OUT OF RANGE REFERENCE UNITS LAB L300.4150 11.7-14.9 SECONDS High PROTIME 23.3 LAB L300.4200 Normal INR 2.2 Performed By: #### L300.3900 #### [facility] [facility] Laboratory [place], [address] OFFICE VISIT REPORT Observed: 10/20/2017 Status: F Source: ERICA 8:16 AM [facility] REPOSITORY [facility] [place] [address] OFFICE VISIT Date of Service: 10/07/17 MR#: [id number] Acct: [id number] Patient: CAROLINE VALVERDE Rep #: [id number] : 1940 Provider: Angelica Kim Age/Sex: 77/F Location: [facility] Status: Signed Comments Summary Comments: Remote Bi-VICD Evaluation: Remote interrogation shows No VT/VF episodes and 1 AT/AF episode ongoing, 100% total time since 07/01/17. Presenting rhythm shows Bi-V paced @ 73 ppm with underlying chronic A-fib. Bi-Vpaced=96.4%. Battery longevity approx 6.1 yrs. Lead impedances, sensing and adaptive pace/sense thresholds remain stable. Normal remote Bi-VICD function. Pt notified remote transmission received and next f/u appt scheduled for in 3 mos. Device Device Date Interviewed: 10/07/17 Follow-up Location: remote Interview Reason: scheduled follow up Wrecker Operator: Medtronic Name: Viva XT [employer] CENTER MANAGER-D Model: [id number] Serial #: [id number] Implant Date: 05/22/17 Year(s): 0 Implant Physician: Dr. Kwasi Fisher/[facility] Patient Characteristics Atrial Indication: Permanent atrial fibrillation Ventricular Indication: Nonsustained VT Patient Substrate: Nonischemic cardiomyopathy (Hypertrophic) Ejection fraction %: 20 to 24 (07/2016) By: Echo Underlying rhythm: Atrial fibrillation Pacemaker Dependent: Yes (no intrinsic R waves) Device Characteristics Device: Biventricular Type: Implantable defibrillator Remote Follow-Up: [facility] Leads Lead #1 Wrecker Operator Lead 1: Medtronic Model Lead 1: 5076 Serial# Lead 1: [id number] Date Implanted Lead 1: 07/16/07 Position Lead 1: RA Lead #2 Wrecker Operator Lead 2: Medtronic Model Lead 2: 6947 Serial# Lead 2: [id number] Date Implanted Lead 2: 07/16/07 Position Lead 2: RV Lead #3 Wrecker Operator Lead 3: Medtronic Model Lead 3: 4193 Serial# Lead 3: [id number] Date Implanted Lead 3: 07/16/07 Position Lead 3: LV Diagnostics Pacing % RV Pacin.4 % LV Pacin.4 Arrhythmias VF Episodes: 0 Fast VT Episodes: 0 Slow VT Episodes: 0 Atrial Fib Episodes: 1 Non-Sust Episodes: 0 Measurements Battery Voltage (V): 3.01 Charge Time (Sec): 4.1 MIRIAM Voltage: 2.73 Predicted Remaining Longevity (months or years): 6.1 years RA Measurements Signal Amplitude (mV): 0.9 Impedance (Ohms): 323 RV Measurements Signal Amplitude (mV): 17.6 Impedance (Ohms): 380 Threshold Voltage: 1.0 @ PW(ms): 0.4 Shock Impedance (Ohms): 36 LV Measurements Impedance (Ohms): 380 Threshold Voltage: 1.75 @ PW(ms): 0.4 Tachy Settings VF Therapies VF Therapy Status On On On On On On Energy 20 35 35 35 35 35 Pathway ATP: During charging on FVT Therapies FVT Therapy Status Off Off Off Off Off Off VT Therapies VT Therapy Status On On On On On On Comments: Emlvin Settings Melvin Settings Pacemaker Mode VVIR Lower Rate Limit (bpm) 70 Hysteresis Rate (bpm) Max Track Rate (bpm) Max Sensor Rate (bpm) 100 Max AV Delay (msec) Max PV Delay (msec) Max PVARP (msec) Output/Sensing V/PW (ms) 2.5/0.4 3.25/0.4 Sensitivity RA RV LV Comments: Billing Codes ICD Device Billing: ICD Dev Interrogate (Rmt) Assessment AND Plan Problems 1. Biventricular congestive heart failure I50.82 2. Chronic systolic congestive heart failure I50.22 3. Ventricular tachycardia I47.2 4. AICD (automatic cardioverter/defibrillator) present Z95.810 5. Persistent atrial fibrillation I48.1 10/15/17 0726 <Electronically signed by Angelica Kim > Date Angelica Kim 10/20/17 0816<Electronically signed by Carlos Mcallister MD> Cosigner Signature: Date (if applicable) Carlos Mcallister MD CC: PROTHROMBIN TIME W/INR Collected: 10/09/2017 Status: F Source: ERICA 10:40 AM [facility] REPOSITORY Order Comment: HOMEDRAW TYPE CODE TESTS RESULT OUT OF RANGE REFERENCE UNITS LAB L300.4150 11.7-14.9 SECONDS High PROTIME 20.7 LAB L300.4200 Normal INR 1.9 Performed By: #### L300.3900 #### [facility] Laboratory [address] [place], [address] PROTHROMBIN TIME W/INR Collected: 09/25/2017 Status: F Source: ERICA 11:00 AM [facility] REPOSITORY Order Comment: HOMEDRAW TYPE CODE TESTS RESULT OUT OF RANGE REFERENCE UNITS LAB L300.4150 11.7-14.9 SECONDS High PROTIME 19.1 LAB L300.4200 Normal INR 1.7 Performed By: #### L300.3900 #### [facility] Laboratory [address] [place], [address] ALLERGIES ALLERGIES DATE TYPE / CODE NAME / CODE REACTION SEVERITY SOURCE 08/07/2018 Drug thyroid, Unknown [place] Allergy/416 pork/[id number](RXN Community 065844([facility]) [facility] ED CT) Repository 08/07/2018 Drug levothyroxine Pt states it SV [place] Allergy/416 sodium/Z029514753(R caused renal Community 816845([facility] XNORM) failure. [facility] ED CT) Repository 08/07/2018 Drug latex/[id number](RX Rash [place] Allergy/416 NORM) Community 749575([facility] ED CT) Repository ENCOUNTERS ENCOUNTERS ADMIT/DISCHARGE ACCOUNT ADMITTING ENCOUNTER LOCATION SOURCE NUMBER CLASS 08/27/2018 [id number] Ambulatory [place] 3 [facility] ing:LAB Repository 08/20/2018 [id number] Ambulatory [place] 4 [facility] ing:LAB Repository 08/07/2018/ [id number] Ambulatory BMSBuilding:B [place] 8 2 [facility] Repository 08/06/2018 [id number] Ambulatory [place] 6 [facility] ing:LAB Repository 07/26/2018/ [id number] Agyepong, Inpatient [place] 8 7 [place] [facility] ing:PCURoom: Repository [id number]: 1 07/26/2018 [id number] Agyepong, Ambulatory BMSBuilding:B [place] 5 [place] [facility] Repository 07/26/2018 [id number] Agyepong, Ambulatory BMSBuilding:B [place] 4 [place] [facility] Repository 07/26/2018 [id number] Agyepong, Ambulatory BMSBuilding:B [place] 0 [place] [facility] Repository 07/26/2018/ [id number] Ambulatory BMSBuilding:W [place] 8 7 [facility] Repository 07/26/2018 [id number] Agyepong, Ambulatory BMSBuilding:B [place] 1 [place] [facility] Repository 07/22/2018/ [id number] Ambulatory BMSBuilding:B [place] 8 9 [facility] Repository 07/20/2018 [id number] Ambulatory [place] 8 [facility] ing:LAB Repository 07/15/2018 [id number] Ambulatory [place] 3 [facility] ing:LAB Repository 07/06/2018 [id number] Ambulatory [place] 3 [facility] ing:LAB Repository 06/29/2018 [id number] Ambulatory [place] 5 [facility] ing:LAB Repository 06/19/2018 [id number] Ambulatory BMSBuilding:B [place] 3 [facility] Repository 06/11/2018 [id number] Ambulatory [place] 3 [facility] Repository 06/04/2018 [id number] Ambulatory [place] 0 [facility] ing:LAB Repository 05/28/2018 [id number] Ambulatory [place] 8 [facility] ing:LAB Repository 05/19/2018 [id number] Ambulatory [place] 7 [facility] ing:LAB Repository 04/27/2018 [id number] Ambulatory [place] 6 [facility] ing:LABSPEC Repository 04/10/2018/ [id number] Ambulatory BMSBuilding:B [place] 8 7 [facility] Repository 04/08/2018 [id number] Ambulatory [place] 3 [facility] ing:LAB Repository 03/24/2018 [id number] Ambulatory [place] 3 [facility] ing:LABSPEC Repository 03/17/2018 [id number] Ambulatory [place] 2 [facility] ing:LABSPEC Repository 03/13/2018 [id number] Ambulatory BMSBuilding:B [place] 7 [facility] Repository 03/06/2018 [id number] Ambulatory BMS [place] 9 [facility] Repository 03/03/2018 [id number] Ambulatory [place] 1 [facility] ing:LABSPEC Repository 02/17/2018 [id number] Ambulatory [place] 5 [facility] ing:LABSPEC Repository 02/13/2018/ [id number] Ambulatory BMSBuilding:B [place] 8 4 [facility] Repository 02/10/2018 [id number] Ambulatory [place] 9 [facility] ing:LABSPEC Repository 02/09/2018 [id number] Ambulatory BMS [place] 8 [facility] Repository 02/06/2018 [id number] Ambulatory [place] 2 [facility] ing:LAB Repository 01/25/2018/ [id number] Ashelf, Inpatient [place] 8 4 Ghasem Encounter [facility] ing:PCURoom: Repository [id number]: 1 01/25/2018 [id number] Ashelf, Ambulatory BMSBuilding:B [place] 0 Ghasem [facility] Repository 01/25/2018 [id number] [facility], Ambulatory BMSBuilding:B [place] 7 Ghasem [facility] Repository 01/23/2018/ [id number] Ambulatory BMSBuilding:B [place] 8 5 [facility] Repository 01/22/2018 [id number] Ambulatory [place] 8 [facility] ing:LABSPEC Repository 01/15/2018 [id number] Ambulatory BMS [place] 3 [facility] Repository 01/09/2018/ [id number] Ambulatory BMSBuilding:B [place] 8 2 [facility] Repository 12/30/2017 [id number] Ambulatory [place] 4 [facility] ing:LABSPEC Repository 12/29/2017 [id number] Ambulatory BMSBuilding:B [place] 0 [facility] Repository 12/16/2017 [id number] Ambulatory [place] 4 [facility] ing:LABSPEC Repository 12/12/2017/ [id number] Ambulatory BMSBuilding:B [place] 8 7 [facility] Repository 11/25/2017 [id number] Ambulatory [place] 8 [facility] ing:LAB Repository 11/14/2017 [id number] Ambulatory [place] 6 [facility] ing:MFPLAB Repository 11/11/2017 [id number] Ambulatory [place] 0 [facility] ing:LAB Repository 11/07/2017 [id number] Ambulatory [place] 6 [facility] ing:CT Repository 10/31/2017 [id number] Ambulatory [place] 3 [facility] ing:RAD Repository 10/28/2017 [id number] Ambulatory [place] 3 [facility] ing:OMD Repository 10/28/2017 [id number] Ambulatory BMSBuilding:B [place] 7 [facility] Repository 10/27/2017 [id number] Ambulatory [place] 2 [facility] ing:LAB Repository 10/09/2017 [id number] Ambulatory [place] 9 [facility] ing:[facility]SPEC Repository 10/07/2017/ [id number] Ambulatory BMSBuilding:B [place] 8 0 [facility] Repository 10/03/2017 [id number] Ambulatory BMSBuilding:B [place] 8 [facility] Hospital Repository 09/25/2017 [id number] Ambulatory [place] 8 [facility] ing:LABSPEC Repository PAYERS PAYERS ENCOUNTER GUARANTOR PAYER SUBSCRIBER SOURCE 08/27/2018 CAROLINE C Primary CAROLINE C [place] [id number] DEER Insurance:MEDICARE BUTCHERDOB: [facility], PART A [facility] [id number] [address]Mxq: Number: Repository [id number] (HP) Date:2018-08-27 08/27/2018 Secondary CAROLINE C [place] Insurance:ANTHEMPolic BUTCHERDOB: Community y Number: [id number] Hospital [id number] Repository Date:3376-30-66[address], [place] [address]YF: 08/27/2018 Tertiary NOT GIVENUNK [place] Insurance:SELF PAY [facility] Number: Effective Repository Date:2018-08-27 08/20/2018 CAROLINE C Primary CAROLINE C [place] [id number] DEER Insurance:MEDICARE BUTCHERDOB: [facility], PART A [facility] [id number] Mexico Rehabilitation Center [address]Ydb: Number: Repository [id number] () Date:2018-08-20 08/20/2018 Secondary CAROLINE C [place] Insurance:ANTHEMPolic BUTCHERDOB: Community y Number: [id number] Hospital [id number] Repository Date:2651-84-76[address], [place] [address]RG: 08/20/2018 Tertiary NOT GIVENUNK [place] Insurance:SELF PAY [facility] Number: Effective Repository Date:2018-08-20 08/07/2018 CAROLINE C Primary CAROLINE C [place] [id number] DEER Insurance:MEDICARE BUTCHERDOB: [facility], PART A [facility] [id number] [facility] Center [address]Bmn: Number: Repository [id number] () Date:2018-07-31 08/07/2018 Secondary CAROLINE C [place] Insurance:ANTHEMPolic BUTCHERDOB: Community y Number: [id number] Hospital [id number] Repository Date:6381-29-39[address], [place] [address]ND: 08/07/2018 Tertiary NOT GIVENUNK [place] Insurance:SELF PAY [facility] Number: Effective Repository Date:2018-08-07 08/06/2018 CAROLINE C Primary CAROLINE C [place] [id number] [place]ER Insurance:MEDICARE BUTCHERDOB: Community [employer] [place], [place] [facility] [id number] [place] [address]Lxj: Number: Repository [id number] (HP) Date:2018-08-06 08/06/2018 Secondary CAROLINE C [place] Insurance:ANTHEMPolic BUTCHERDOB: Community y Number: [id number] Hospital [id number] Repository Date:6911-70-31LV [address] [place] [address]SN: 08/06/2018 Tertiary NOT GIVENUNK [place] Insurance:SELF PAY [facility] Number: Effective Repository Date:2018-08-06 07/26/2018 CAROLINE C Primary CAROLINE C [place] [id number] [place] Insurance:MEDICARE [facility] [id number] Mexico Rehabilitation Center [address]Xno: Number: Repository [id number] (HP) Date:2018-07-25 07/26/2018 Secondary CAROLINE C [place] Insurance:ANTHEMPolic BUTCHERDOB: Community y Number: [id number] Hospital [id number] Repository Date:2655-53-09NU [address] [place] [address]TX: 07/26/2018 Tertiary NOT GIVENUNK [place] Insurance:SELF PAY [facility] Number: Effective Repository Date:2018-07-25 07/26/2018 CAROLINE C Primary CAROLINE C [place] [id number] [place]ER Insurance:MEDICARE BUTCHERDOB: Community [employer] [place], PART A [facility] [id number] Hospital [place] [address]Oda: Number: Repository [id number] (HP) Date:2018-07-25 07/26/2018 Secondary CAROLINE C [place] Insurance:ANTHEMPolic BUTCHERDOB: Community y Number: [id number] Hospital [id number] Repository Date:2002-01-43XK [address] [place] [address]GF: 07/26/2018 Tertiary NOT GIVENUNK [place] Insurance:SELF PAY [facility] Number: Effective Repository Date:2018-07-26 07/26/2018 CAROLINE C Primary CAROLINE C [place] [id number] DEER Insurance:MEDICARE BUTCHERDOB: Community [employer] [place], PART A [facility] [id number] Mexico Rehabilitation Center [address]Zru: Number: Repository [id number] () Date:2018-07-25 07/26/2018 Secondary CAROLINE C [place] Insurance:ANTHEMPolic BUTCHERDOB: Community y Number: [id number] Hospital [id number] Repository Date:0119-33-85[address], [place] [address]LY: 07/26/2018 Tertiary NOT GIVENUNK [place] Insurance:SELF PAY [facility] Number: Effective Repository Date:2018-07-26 07/26/2018 CAROLINE C Primary CAROLINE C [place] [id number] [place] Insurance:MEDICARE BUTCHERDOB: Community [employer] [place], PART A [facility] [id number] Mexico Rehabilitation Center [address]Gvx: Number: Repository [id number] () Date:2018-07-25 07/26/2018 Secondary CAROLINE C [place] Insurance:ANTHEMPolic BUTCHERDOB: Community y Number: [id number] Hospital [id number] Repository Date:5426-95-38JR [address] [place] [address]GA: 07/26/2018 Tertiary NOT GIVENUNK [place] Insurance:SELF PAY [facility] Number: Effective Repository Date:2018-07-26 07/26/2018 CAROLINE C Primary CAROLINE C [place] [id number] [place] Insurance:MEDICARE BUTCHERDOB: Community [employer] [place], PART A [facility] [id number] Mexico Rehabilitation Center [address]Xxu: Number: Repository [id number] (HP) Date:2018-07-25 07/26/2018 Secondary CAROLINE C [place] Insurance:ANTHEMPolic BUTCHERDOB: Community y Number: [id number] Hospital [id number] Repository Date:4841-87-98XF [address] [place] [address] [place] [address]NP: 07/26/2018 Tertiary NOT GIVENUNK [place] Insurance:SELF PAY [facility] Number: Effective Repository Date:2018-07-26 07/26/2018 CAROLINE C Primary CAROLINE C [place] [id number] [place] Insurance:MEDICARE BUTCHERDOB: [facility], PART A [facility] [id number] Mexico Rehabilitation Center [address]Fig: Number: Repository [id number] () Date:2018-07-25 07/26/2018 Secondary CAROLINE C [place] Insurance:ANTHEMPolic BUTCHERDOB: Community y Number: [id number] Hospital [id number] Repository Date:7830-60-41[address] [address]AA: 07/26/2018 Tertiary NOT GIVENUNK [place] Insurance:SELF PAY [facility] Number: Effective Repository Date:2018-07-26 07/22/2018 CAROLINE C Primary CAROLINE C [place] [id number] [place] Insurance:MEDICARE BUTCHERDOB: [facility], PART A [facility] [id number] Mexico Rehabilitation Center [address]Whq: Number: Repository [id number] () Date:2018-04-10 07/22/2018 Secondary CAROLINE C [place] Insurance:ANTHEMPolic BUTCHERDOB: Community y Number: [id number] Hospital [id number] Repository Date:3948-80-73DT [address], [place] [address]XR: 07/22/2018 Tertiary NOT GIVENUNK [place] Insurance:SELF PAY [facility] Number: Effective Repository Date:2018-07-22 07/20/2018 CAROLINE C Primary CAROLINE C [place] [id number] [place] Insurance:MEDICARE BUTCHERDOB: Community [facility]ERATED [place], PART A [facility] [id number] Mexico Rehabilitation Center [address]Dlq: Number: Repository [id number] (HP) Date:2018-07-20 07/20/2018 Secondary CAROLINE C Erica Insurance:ANTHEMPolic BUTCHERDOB: Community y Number: [id number] Regional Medical [id number] Repository Date:2577-85-00ZR [address] [place] [address] 94131LV: 07/20/2018 Tertiary NOT GIVENUNK Erica Insurance:SELF PAY [facility] Number: Effective Repository Date:2018-07-20 07/15/2018 CAROLINE C Primary CAROLINE C Erica [id number] DEER Insurance:MEDICARE BUTCHERDOB: Community [employer] [place], PART A [facility] [id number] Mexico Rehabilitation Center [address]1946Hwo: Number: Repository [id number] (HP) Date:2018-07-15 07/15/2018 Secondary CAROLINE C Erica Insurance:ANTHEMPolic BUTCHERDOB: Community y Number: [id number] Hospital [id number] Repository Date:4274-09-67SG [address] [place] [address] 96167PT: 07/15/2018 Tertiary NOT GIVENUNK Erica Insurance:SELF PAY [facility] Number: Effective Repository Date:2018-07-15 07/06/2018 CAROLINE C Primary CAROLINE C [place] [id number] DEER Insurance:MEDICARE BUTCHERDOB: Community [employer], PART A [facility] [id number] [place] [address]Piu: Number: Repository [id number] (HP) Date:2018-07-06 07/06/2018 Secondary CAROLINE C Bel[place] Insurance:ANTHEMPolic BUTCHERDOB: Community y Number: [id number] Hospital [id number] Repository Date:2879-39-98VI [address] [place] [address] 48376GE: 07/06/2018 Tertiary NOT GIVENUNK Erica Insurance:SELF PAY [facility] Number: Effective Repository Date:2018-07-06 06/29/2018 CAROLINE C Primary CAROLINE C Erica [id number] DEER Insurance:MEDICARE BUTCHERDOB: Community [facility] [id number] Mexico Rehabilitation Center [address]Nmr: Number: Repository [id number] () Date:2018-06-29 06/29/2018 Secondary CAROLINE C Erica Insurance:ANTHEMPolic BUTCHERDOB: Community y Number: [id number] Hospital [id number] Repository Date:9215-38-57EI [address]ZPMQFFS, [place] [address]MR: 06/29/2018 Tertiary NOT GIVENUNK [place] Insurance:SELF PAY [facility] Number: Effective Repository Date:2018-06-29 06/19/2018 CAROLINE C Primary CAROLINE C [place] [id number] DEER Insurance:MEDICARE BUTCHERDOB: Community [facility] [id number] Mexico Rehabilitation Center [address]Vll: Number: Repository [id number] () Date:2018-06-19 06/19/2018 Secondary CAROLINE C Erica Insurance:ANTHEMPolic BUTCHERDOB: Community y Number: [id number] Hospital [id number] Repository Date:0803-69-43BK [address]TMKXN [place] [address]JO: 06/19/2018 Tertiary NOT GIVENUNK [place] Insurance:SELF PAY [facility] Number: Effective Repository Date:2018-06-19 06/11/2018 CAROLINE C Primary CAROLINE C Erica [id number] DEER Insurance:MEDICARE BUTCHERDOB: Community [facility] [id number] Mexico Rehabilitation Center [address]855Ilb: Number: Repository [id number] () Date:2018-06-11 06/11/2018 Secondary CAROLINE C [place] Insurance:ANTHEMPolic BUTCHERDOB: Community y Number: [id number] Hospital [id number] Repository Date:4045-24-10UX [address] [place] [address] 38876XK: 06/11/2018 Tertiary NOT GIVENUNK [place] Insurance:SELF PAY [facility] Number: Effective Repository Date:2018-06-11 06/04/2018 CAROLINE C Primary CAROLINE C Erica [id number] DEER Insurance:MEDICARE BUTCHERDOB: [facility] [id number] Mexico Rehabilitation Center [address]Nra: Number: Repository [id number] () Date:2018-06-04 06/04/2018 Secondary CAROLINE C Erica Insurance:ANTHEMPolic BUTCHERDOB: Community y Number: [id number] Hospital [id number] Repository Date:3882-29-50VN [address]VCBGYI [place] [address]OW: 06/04/2018 Tertiary NOT GIVENUNK [place] Insurance:SELF PAY [facility] Number: Effective Repository Date:2018-06-04 05/28/2018 CAROLINE C Primary CAROLINE C [place] [id number] DEER Insurance:MEDICARE BUTCHERDOB: [facility] [id number] Mexico Rehabilitation Center [address]Oma: Number: Repository [id number] () Date:2018-05-28 05/28/2018 Secondary CAROLINE C [place] Insurance:ANTHEMPolic BUTCHERDOB: Community y Number: [id number] Hospital [id number] Repository Date:2926-27-10OH [address], [place] [address]EA: 05/28/2018 Tertiary NOT GIVENUNK [place] Insurance:SELF PAY [facility] Number: Effective Repository Date:2018-05-28 05/19/2018 CAROLINE C Primary CAROLINE C [place] [id number] DEER Insurance:MEDICARE BUTCHERDOB: Community [employer], PART A [facility] [id number] Hospital [place] [address]Xfb: Number: Repository [id number] (HP) Date:2018-05-19 05/19/2018 Secondary CAROLINE C Erica Insurance:ANTHEMPolic BUTCHERDOB: Community y Number: [id number] Hospital [id number] Repository Date:7683-12-03WO [address] [place] [address]TC: 05/19/2018 Tertiary NOT GIVENUNK [place] Insurance:SELF PAY [facility] Number: Effective Repository Date:2018-05-19 04/27/2018 CAROLINE C Primary CAROLINE C [place] [id number] DEER Insurance:MEDICARE BUTCHERDOB: Community [employer], PART A [facility] [id number] Mexico Rehabilitation Center [address]Kcd: Number: Repository [id number] () Date:2018-04-27 04/27/2018 Secondary CAROLINE C [place] Insurance:ANTHEMPolic BUTCHERDOB: Community y Number: [id number] Hospital [id number] Repository Date:5587-96-28OF [address]BIJWHNR, [place] [address]TX: 04/27/2018 Tertiary NOT GIVENUNK Erica Insurance:SELF PAY [facility] Number: Effective Repository Date:2018-04-27 04/10/2018 CAROLINE C Primary CAROLINE C Erica [id number] DEER Insurance:MEDICARE BUTCHERDOB: Community [employer], PART A [facility] [id number] [place] [address]Oto: Number: Repository [id number] (HP) Date:2018-01-09 04/10/2018 Secondary CAROLINE C [place]ami Insurance:ANTHEMPolic BUTCHERDOB: Community y Number: [id number] Hospital [id number] Repository Date:4185-07-80TK [address] [place] [address] 91651FC: 04/10/2018 Tertiary NOT GIVENUNK [place] Insurance:SELF PAY [facility] Number: Effective Repository Date:2018-04-10 04/08/2018 CAROLINE C Primary CAROLINE C Eirca [id number] DEER Insurance:MEDICARE BUTCHERDOB: Community [facility], PART A [facility] [id number] Mexico Rehabilitation Center [address]Wmz: Number: Repository [id number] () Date:2018-04-08 04/08/2018 Secondary CAROLINE C [place] Insurance:ANTHEMPolic BUTCHERDOB: Community y Number: [id number] Hospital [id number] Repository Date:9175-46-44IX [address] [place] [address] 42511MZ: 04/08/2018 Tertiary NOT GIVENUNK [place] Insurance:SELF PAY [facility] Number: Effective Repository Date:2018-04-08 03/24/2018 CAROLINE C Primary CAROLINE C Erica [id number] DEER Insurance:MEDICARE BUTCHERDOB: [facility], PART A [facility] [id number] Mexico Rehabilitation Center [address]Cby: Number: Repository [id number] () Date:2018-03-24 03/24/2018 Secondary CAROLINE C Erica Insurance:ANTHEMPolic BUTCHERDOB: Community y Number: [id number] Hospital [id number] Repository Date:7052-15-45XR [address] [place] [address] 80773EK: 03/24/2018 Tertiary NOT GIVENUNK [place] Insurance:SELF PAY [facility] Number: Effective Repository Date:2018-03-24 03/17/2018 CAROLINE C Primary CAROLINE C [place] [id number] DEER Insurance:MEDICARE BUTCHERDOB: Community [facility] [id number] Mexico Rehabilitation Center [address]Acj: Number: Repository [id number] () Date:2018-03-17 03/17/2018 Secondary CAROLINE C Erica Insurance:ANTHEMPolic BUTCHERDOB: Community y Number: [id number] Hospital [id number] Repository Date:9592-78-64XS [address] [place] [address] 41035QC: 03/17/2018 Tertiary NOT GIVENUNK [place] Insurance:SELF PAY [facility] Number: Effective Repository Date:2018-03-17 03/13/2018 CAROLINE C Primary CAROLINE C [place] [id number] DEER Insurance:MEDICARE BUTCHERDOB: [facility], PART A [facility] [id number] Mexico Rehabilitation Center [address]1451Iaz: Number: Repository [id number] () Date:2018-02-13 03/13/2018 Secondary CAROLINE C Erica Insurance:ANTHEMPolic BUTCHERDOB: Community y Number: [id number] Hospital [id number] Repository Date:7086-42-83AV [address] [place] [address] 38036EQ: 03/13/2018 Tertiary NOT GIVENUNK [place] Insurance:SELF PAY [facility] Number: Effective Repository Date:2018-02-13 03/06/2018 CAROLINE C Primary CAROLINE C [place] [id number] DEER Insurance:MEDICARE BUTCHERDOB: [facility], PART A [facility] [id number] Hospital [place] [address]Dfy: Number: Repository [id number] () Date:2018-03-06 03/06/2018 Secondary CAROLINE C Erica Insurance:ANTHEMPolic BUTCHERDOB: Community y Number: [id number] Hospital [id number] Repository Date:8749-19-05UI [address] [place] [address] [place] [address]DO: 03/06/2018 Tertiary NOT GIVENUNK Erica Insurance:SELF PAY [facility] Number: Effective Repository Date:2018-03-06 03/03/2018 CAROLINE C Primary CAROLINE C [place] [id number] DEER Insurance:MEDICARE BUTCHERDOB: Community [employer] [place], PART A [facility] [id number] Hospital [place] [address]Qcl: Number: Repository [id number] (HP) Date:2018-03-03 03/03/2018 Secondary CAROLINE C Erica Insurance:ANTHEMPolic BUTCHERDOB: Community y Number: [id number] Hospital [id number] Repository Date:9593-39-91PS [address] [address]VN: 03/03/2018 Tertiary NOT GIVENUNK Erica Insurance:SELF PAY [facility] Number: Effective Repository Date:2018-03-03 02/17/2018 CAROLINE C Primary CAROLINE C Erica [id number] DEER Insurance:MEDICARE BUTCHERDOB: Community [employer], PART A [facility] [id number] Mexico Rehabilitation Center [address]Nsn: Number: Repository [id number] () Date:2018-02-17 02/17/2018 Secondary CAROLINE C Erica Insurance:ANTHEMPolic BUTCHERDOB: Community y Number: [id number] Hospital [id number] Repository Date:3021-26-32UC [address] [place] [address] 00087VQ: 02/17/2018 Tertiary NOT GIVENUNK Erica Insurance:SELF PAY [facility] Number: Effective Repository Date:2018-02-17 02/13/2018 CAROLINE C Primary CAROLINE C [place] [id number] DEER Insurance:MEDICARE BUTCHERDOB: Community [employer], PART A [facility] [id number] Hospital [place] [address]Lxc: Number: Repository [id number] (HP) Date:2018-01-23 02/13/2018 Secondary CAROLINE C Erica Insurance:ANTHEMPolic BUTCHERDOB: Community y Number: [id number] Hospital [id number] Repository Date:6856-88-00NV [address] [place] [address] 34535OZ: 02/13/2018 Tertiary NOT GIVENUNK [place] Insurance:SELF PAY [facility] Number: Effective Repository Date:2018-01-27 02/10/2018 CAROLINE C Primary CAROLINE C [place] [id number] DEER Insurance:MEDICARE BUTCHERDOB: Community [facility], PART A [facility] [id number] Mexico Rehabilitation Center [address]Shg: Number: Repository [id number] () Date:2018-02-10 02/10/2018 Secondary CAROLINE C Erica Insurance:ANTHEMPolic BUTCHERDOB: Community y Number: [id number] Hospital [id number] Repository Date:9003-65-75UK [address] [place] [address] 74924KB: 02/10/2018 Tertiary NOT GIVENUNK [place] Insurance:SELF PAY [facility] Number: Effective Repository Date:2018-02-10 02/09/2018 CAROLINE C Primary CAROLINE C Erica [id number] DEER Insurance:MEDICARE BUTCHERDOB: [facility], PART A [facility] [id number] Mexico Rehabilitation Center [address]Sco: Number: Repository [id number] () Date:2018-02-09 02/09/2018 Secondary CAROLINE C [place] Insurance:ANTHEMPolic BUTCHERDOB: Community y Number: [id number] Hospital [id number] Repository Date:3879-38-51FD [address] [place] [address] 35335HK: 02/09/2018 Tertiary NOT GIVENUNK [place] Insurance:SELF PAY [facility] Number: Effective Repository Date:2018-02-09 02/06/2018 CAROLINE C Primary CAROLINE C [place] [id number] DEER Insurance:MEDICARE BUTCHERDOB: [facility], PART A [facility] [id number] Mexico Rehabilitation Center [address]Jme: Number: Repository [id number] () Date:2018-02-06 02/06/2018 Secondary CAROLINE C [place] Insurance:ANTHEMPolic BUTCHERDOB: Community y Number: [id number] Hospital [id number] Repository Date:8402-97-19JZ [address] [place] [address] 64122KE: 02/06/2018 Tertiary NOT GIVENUNK Erica Insurance:SELF PAY [facility] Number: Effective Repository Date:2018-02-06 01/25/2018 CAROLINE C Primary CAROLINE C Erica [id number] DEER Insurance:MEDICARE BUTCHERDOB: [facility], PART A [facility] [id number] Mexico Rehabilitation Center 81301Iqw: Number: Repository [id number] () Date:2018-01-25 01/25/2018 Secondary CAROLINE C Erica Insurance:ANTHEMPolic BUTCHERDOB: Community y Number: [id number] Hospital [id number] Repository Date:4530-97-77DR [address] [place] [address] 48530HG: 01/25/2018 Tertiary NOT GIVENUNK [place] Insurance:SELF PAY [facility] Number: Effective Repository Date:2018-01-25 01/25/2018 CAROLINE C Primary CAROLINE C [place] [id number] DEER Insurance:MEDICARE BUTCHERDOB: [facility], PART A [facility] [id number] Mexico Rehabilitation Center 37[address]Yrc: Number: Repository [id number] () Date:2018-01-25 01/25/2018 Secondary CAROLINE C Erica Insurance:ANTHEMPolic BUTCHERDOB: Community y Number: [id number] Hospital [id number] Repository Date:8261-84-30IN [address] [place] [address] 19989LO: 01/25/2018 Tertiary NOT GIVENUNK [place] Insurance:SELF PAY [facility] Number: Effective Repository Date:2018-01-25 01/25/2018 CAROLINE C Primary CAROLINE C Erica [id number] DEER Insurance:MEDICARE BUTCHERDOB: Community [facility], PART A [facility] [id number] Mexico Rehabilitation Center 615[address]Zrh: Number: Repository [id number] (HP) Date:2018-01-25 01/25/2018 Secondary CAROLINE C [place] Insurance:ANTHEMPolic BUTCHERDOB: Community y Number: [id number] Hospital [id number] Repository Date:0052-72-15GV [address] [place] [address] 52019MX: 01/25/2018 Tertiary NOT GIVENUNK Erica Insurance:SELF PAY [facility] Number: Effective Repository Date:2018-01-25 01/23/2018 CAROLINE C Primary CAROLINE C [place] [id number] DEER Insurance:MEDICARE BUTCHERDOB: Community [employer] [place] PART A [facility] [id number] Number: Repository [id number]: [phone] [id number] [phone] () Date:2017-10-25 01/23/2018 Secondary CAROLINE C [place] Insurance:ANTHEMPolic BUTCHERDOB: Community y Number: [id number] Hospital [id number] Repository Date:3642-06-23OX [address] [place] [address] 92850QE: 01/23/2018 Tertiary NOT GIVENUNK [place] Insurance:SELF PAY [facility] Number: Effective Repository Date:2017-12-12 01/22/2018 CAROLINE C Primary CAROLINE C [place] [id number] DEER Insurance:MEDICARE BUTCHERDOB: [facility], PART A [facility] [id number] Mexico Rehabilitation Center 11422Aqo: Number: Repository [id number] (HP) Date:2018-01-22 01/22/2018 Secondary CAROLINE C [place] Insurance:ANTHEMPolic BUTCHERDOB: Community y Number: [id number] Hospital [id number] Repository Date:2467-38-15NB [address] [place] [address] [id number]: 01/22/2018 Tertiary NOT GIVENUNK [place] Insurance:SELF PAY [facility] Number: Effective Repository Date:2018-01-22 01/15/2018 CAROLINE C Primary CAROLINE C [place] [id number] DEER Insurance:MEDICARE BUTCHERDOB: [facility], PART A [facility] [id number] Mexico Rehabilitation Center 24595Uxm: Number: Repository [id number] () Date:2018-01-15 01/15/2018 Secondary CAROLINE C Erica Insurance:ANTHEMPolic BUTCHERDOB: Community y Number: [id number] Hospital [id number] Repository Date:2606-71-49XJ [address] [place] [address] 81572AS: 01/15/2018 Tertiary NOT GIVENUNK Erica Insurance:SELF PAY [facility] Number: Effective Repository Date:2018-01-15 01/09/2018 CAROLINE C Primary CAROLINE C [place] [id number] DEER Insurance:MEDICARE BUTCHERDOB: [facility], PART A [facility] [id number] Mexico Rehabilitation Center 817[address]Cnb: Number: Repository [id number] () Date:2017-10-15 01/09/2018 Secondary CAROLINE C Erica Insurance:ANTHEMPolic BUTCHERDOB: Community y Number: [id number] Hospital [id number] Repository Date:6318-11-00SB [address] [place] [address] 58552QC: 01/09/2018 Tertiary NOT GIVENUNK [place] Insurance:SELF PAY [facility] Number: Effective Repository Date:2018-01-09 12/30/2017 CAROLINE C Primary CAROLINE C Erica [id number] DEER Insurance:MEDICARE BUTCHERDOB: [facility], PART A [facility] [id number] Mexico Rehabilitation Center 43056Izb: Number: Repository [id number] () Date:2017-12-30 12/30/2017 Secondary CAROLINE C [place] Insurance:ANTHEMPolic BUTCHERDOB: Community y Number: [id number] Regional Medical [id number] Repository Date:0120-19-98UE [address] [place] [address] 74441DR: 12/30/2017 Tertiary NOT GIVENUNK [place] Insurance:SELF PAY [facility] Number: Effective Repository Date:2017-12-30 12/29/2017 CAROLINE C Primary CAROLINE C [place] [id number] DEER Insurance:ANTHEMPolic BUTCHERDOB: [facility], y Number: [id number] Mexico Rehabilitation Center 63923Pkk: [id number] Repository Date:9905-45-69RF [address] ) [id number] [place] [address] 42539CG: 12/29/2017 Secondary CAROLINE C [place] Insurance:MEDICARE BUTCHERDOB: Community PART A [facility] [id number] Hospital Number: Repository [id number] Date:2017-09-05 12/29/2017 Tertiary NOT GIVENUNK Erica Insurance:SELF PAY [facility] Number: Effective Repository Date:2017-09-05 12/16/2017 CAROLINE C Primary CAROLINE C Erica [id number] DEER Insurance:MEDICARE BUTCHERDOB: [facility], PART A [facility] [id number] Mexico Rehabilitation Center 76979Gpi: Number: Repository [id number] () Date:2017-12-16 12/16/2017 Secondary CAROLINE C [place] Insurance:ANTHEMPolic BUTCHERDOB: Community y Number: [id number] Hospital [id number] Repository Date:2884-56-37WI [address] [place] [address] 18533LP: 12/16/2017 Tertiary NOT GIVENUNK [place] Insurance:SELF PAY [facility] Number: Effective Repository Date:2017-12-16 12/12/2017 CAROLINE C Primary CAROLINE C [place] [id number] DEER Insurance:MEDICARE BUTCHERDOB: Community [facility] [id number] Mexico Rehabilitation Center 69861Ivn: Number: Repository [id number] (HP) Date:2017-12-11 12/12/2017 Secondary CAROLINE C [place] Insurance:ANTHEMPolic BUTCHERDOB: Community y Number: [id number] Hospital [id number] Repository Date:5398-66-69UC [address] [place] [address] 90074WE: 12/12/2017 Tertiary NOT GIVENUNK Erica Insurance:SELF PAY [facility] Number: Effective Repository Date:2017-12-12 11/25/2017 CAROLINE C Primary CAROLINE C Erica [id number] DEER Insurance:MEDICARE BUTCHERDOB: [facility] [id number] Mexico Rehabilitation Center 14043Ofx: Number: Repository [id number] () Date:2017-11-25 11/25/2017 Secondary CAROLINE C Erica Insurance:ANTHEMPolic BUTCHERDOB: Community y Number: [id number] Hospital [id number] Repository Date:2410-01-10KE [address] [place] [address] 30181RX: 11/25/2017 Tertiary NOT GIVENUNK [place] Insurance:SELF PAY [facility] Number: Effective Repository Date:2017-11-25 11/14/2017 CAROLINE C Primary CAROLINE C [place] [id number] DEER Insurance:MEDICARE BUTCHERDOB: Community [facility] [place] [facility] [id number] Mexico Rehabilitation Center 17595Jov: Number: Repository [id number] (HP) Date:2017-11-14 11/14/2017 Secondary CAROLINE C Erica Insurance:ANTHEMPolic BUTCHERDOB: Community y Number: [id number] Regional Medical [id number] Repository Date:7540-98-29PL [address] [place] [address] 21463LT: 11/14/2017 Tertiary NOT GIVENUNK Erica Insurance:SELF PAY [facility] Number: Effective Repository Date:2017-11-14 11/11/2017 CAROLINE C Primary CAROLINE C [place] [id number] DEER Insurance:MEDICARE BUTCHERDOB: [facility] [id number] Mexico Rehabilitation Center 72423Sux: Number: Repository [id number] () Date:2017-11-11 11/11/2017 Secondary CAROLINE C [place] Insurance:ANTHEMPolic BUTCHERDOB: Community y Number: [id number] Hospital [id number] Repository Date:5171-48-83LS [id number] [place] [address] 90116NI: 11/11/2017 Tertiary NOT GIVENUNK [place] Insurance:SELF PAY [facility] Number: Effective Repository Date:2017-11-11 11/07/2017 CAROLINE C Primary CAROLINE C [place] [id number] DEER Insurance:MEDICARE BUTCHERDOB: [facility], PART A [facility] [id number] Mexico Rehabilitation Center 22482Lsh: Number: Repository [id number] () Date:2017-10-28 11/07/2017 Secondary CAROLINE C [place] Insurance:ANTHEMPolic BUTCHERDOB: Community y Number: [id number] Hospital [id number] Repository Date:4641-05-03ZN [address]PLERJM[address] [place] [address] 68585EA: 11/07/2017 Tertiary NOT GIVENUNK [place] Insurance:SELF PAY [facility] Number: Effective Repository Date:2017-10-28 10/31/2017 CAROLINE C Primary CAROLINE C Erica [id number] DEER Insurance:MEDICARE BUTCHERDOB: [facility], PART A [facility] [id number] Mexico Rehabilitation Center 21064Fsv: Number: Repository [id number] () Date:2017-10-28 10/31/2017 Secondary CAROLINE C [place] Insurance:ANTHEMPolic BUTCHERDOB: Community y Number: [id number] Hospital [id number] Repository Date:0500-34-31BN [address] [place] [address] 06570HN: 10/31/2017 Tertiary NOT GIVENUNK [place] Insurance:SELF PAY [facility] Number: Effective Repository Date:2017-10-28 10/28/2017 CAROLINE C Primary CAROLINE C Erica [id number] DEER Insurance:MEDICARE BUTCHERDOB: [facility], [facility] [id number] [address]Rle: Number: Repository [id number] () Date:1998-12-21 10/28/2017 Secondary CAROLINE C [place] Insurance:ANTHEMPolic BUTCHERDOB: Community y Number: [id number] [facility] [id number] Repository Date:1956-25-67[address], [place] [address]UQ: 10/28/2017 Tertiary NOT GIVENUNK [place] Insurance:SELF PAY [facility] Number: Effective Repository Date:2017-08-20 10/28/2017 CAROLINE C Primary CAROLINE C Erica [id number] DEER Insurance:MEDICARE BUTCHERDOB: [facility], PART A [facility] [id number] [facility] Rehabilitation Center [address]Gto: Number: Repository [id number] () Date:1998-12-21 10/28/2017 Secondary CAROLINE C Erica Insurance:ANTHEMPolic BUTCHERDOB: Community y Number: [id number] Hospital [id number] Repository Date:9298-05-33[address], [place] [address]WV: 10/28/2017 Tertiary NOT GIVENUNK [place] Insurance:SELF PAY [facility] Number: Effective Repository Date:2017-10-28 10/27/2017 CAROLINE C Primary CAROLINE C Erica [id number] DEER Insurance:MEDICARE BUTCHERDOB: [facility], PART A [facility] [id number] [facility] Center [address]Zfk: Number: Repository [id number] (HP) Date:2017-10-27 10/27/2017 Secondary CAROLINE C [place] Insurance:ANTHEMPolic BUTCHERDOB: Community y Number: [id number] Hospital [id number] Repository Date:0009-34-91[address], [place] [address]LE: 10/27/2017 Tertiary NOT GIVENUNK Erica Insurance:SELF PAY [facility] Number: Effective Repository Date:2017-10-27 10/09/2017 CAROLINE C Primary CAROLINE C [place] [id number] [place]ER Insurance:MEDICARE BUTCHERDOB: [facility], PART A [facility] [id number] [facility] Rehabilitation Center [address]Upf: Number: Repository [id number] (HP) Date:2017-10-09 10/09/2017 Secondary CAROLINE C [place] Insurance:ANTHEMPolic BUTCHERDOB: Community y Number: [id number] Hospital [id number] Repository Date:8626-65-82[address], [place] [address]PY: 10/09/2017 Tertiary NOT GIVENUNK Erica Insurance:SELF PAY [facility] Number: Effective Repository Date:2017-10-09 10/07/2017 CAROLINE C Primary CAROLINE C Erica [id number] [place] Insurance:MEDICARE BUTCHERDOB: [facility], PART A [facility] [id number] Mexico Rehabilitation Center [address]Dye: Number: Repository [id number] () Date:2017-08-28 10/07/2017 Secondary CAROLINE C Erica Insurance:ANTHEMPolic BUTCHERDOB: Community y Number: [id number] Hospital [id number] Repository Date:6411-51-57[address], [place] [address]YJ: 10/07/2017 Tertiary NOT GIVENUNK [place] Insurance:SELF PAY [facility] Number: Effective Repository Date:2017-08-28 10/03/2017 Caroline C Primary Caroline C Erica [id number] [place] Insurance:ANTHEMPolic ButcherDOB: Community [facility], y Number: [id number] Mexico Rehabilitation Center [address]Ebm: [id number] Repository Date:3066-33-95[address] ) [address] [address]LC: 10/03/2017 Secondary Caroline C Erica Insurance:MEDICARE ButcherDOB: Community PART A [facility] [id number] Hospital Number: Repository [id number] Date:2017-08-24 10/03/2017 Tertiary NOT GIVENUNK Erica Insurance:SELF PAY [facility] Number: Effective Repository Date:2017-08-24 09/25/2017 CAROLINE C Primary CAROLINE C [place] [id number] [place] Insurance:MEDICARE BUTCHERDOB: [facility], PART A [facility] [id number] Mexico Rehabilitation Center [address]Xti: Number: Repository [id number] () Date:2017-09-25 09/25/2017 Secondary CAROLINE C [place] Insurance:ANTHEMPolic BUTCHERDOB: Community y Number: [id number] Hospital [id number] Repository Date:2865-76-43[address], [place] [address]II: 09/25/2017 Tertiary NOT GIVENUNK [place] Insurance:SELF PAY [facility] Number: Effective Repository Date:2017-09-25
== END ==
PROVIDERS: Nurse Practitioner Family; Family Provider Family Medicine; PCP Family Medicine; Visit Provider Internal Medicine Cardiovascular Disease
DX: I48.92 Unspecified atrial flutter (principal); I48.0 Paroxysmal atrial fibrillation; D63.1 Anemia in chronic kidney disease; N18.9 Chronic kidney disease, unspecified; Z79.01 Long term (current) use of anticoagulants
CPT/HCPCS: 36415; 85025; 85610

== ENCOUNTER → 2018-08-27 09:18 | Outpatient (CLI) | payer MEDICARE, BC, SELFPAY ==
[2018-08-07 13:45] VITALS: BMI 28.1
[2018-08-27 10:55] LABS: Prothrombin Time Fingerstick 23.2 SEC (11.9-14.4)
== END ==
PROVIDERS: Family Provider Family Medicine; PCP Family Medicine; Visit Provider Internal Medicine Cardiovascular Disease
DX: I48.92 Unspecified atrial flutter (principal); I48.0 Paroxysmal atrial fibrillation; Z79.01 Long term (current) use of anticoagulants
CPT/HCPCS: 36416; 85610

== ENCOUNTER → 2018-09-18 10:05 | Outpatient (CLI) | payer MEDICARE, BC, SELFPAY ==
[2018-08-07 13:45] VITALS: BMI 28.1
[2018-09-18 11:16] LABS: Prothrombin Time Fingerstick 16.1 SEC (11.9-14.4)
== END ==
PROVIDERS: Family Provider Family Medicine; PCP Family Medicine; Visit Provider Internal Medicine Cardiovascular Disease
DX: I48.92 Unspecified atrial flutter (principal); I48.0 Paroxysmal atrial fibrillation; Z79.01 Long term (current) use of anticoagulants
CPT/HCPCS: 36416; 85610

== ENCOUNTER → 2018-09-28 10:02 | Outpatient (CLI) | payer MEDICARE, BC, SELFPAY ==
[2018-08-07 13:45] VITALS: BMI 28.1
[2018-09-28 11:11] LABS: Prothrombin Time Fingerstick 30.3 SEC (11.9-14.4)
== END ==
PROVIDERS: Family Provider Family Medicine; PCP Family Medicine; Visit Provider Internal Medicine Cardiovascular Disease
DX: I48.92 Unspecified atrial flutter (principal); I48.0 Paroxysmal atrial fibrillation; Z79.01 Long term (current) use of anticoagulants
CPT/HCPCS: 36416; 85610

== ENCOUNTER → 2018-10-05 09:08 | Outpatient (CLI) | payer MEDICARE, BC, SELFPAY ==
[2018-08-07 13:45] VITALS: BMI 28.1
[2018-10-05 11:18] LABS: Prothrombin Time Fingerstick 58.1 SEC (11.9-14.4)
[2018-10-05 11:38] LABS: Prothrombin Time (Protime)PT. 47.2 SECONDS (11.7-14.9)
== END ==
PROVIDERS: Family Provider Family Medicine; PCP Family Medicine; Visit Provider Internal Medicine Cardiovascular Disease
DX: I48.92 Unspecified atrial flutter (principal); I48.0 Paroxysmal atrial fibrillation; Z79.01 Long term (current) use of anticoagulants
CPT/HCPCS: 36416; 85610

== ENCOUNTER → 2018-10-07 10:31 | Outpatient (CLI) | payer MEDICARE, BC, SELFPAY ==
[2018-08-07 13:45] VITALS: BMI 28.1
[2018-10-07 11:35] LABS: Prothrombin Time (Protime)PT. 42.9 SECONDS (11.7-14.9)
[2018-10-07 11:37] LABS: International Normalized Ratio 4.5
--- OUTSIDE RECORDS SUMMARY | 2018-12-12 05:37 | XMS RPT_ITS ---
:1940 Author Organization OHIP Support Name Relationship Address Phone R Unavailable Unavailable Unavailable LADONNA GELLER Unavailable [address] + [place] [address] R Unavailable Unavailable Unavailable LADONNA GELLER Unavailable [address] + [place] [address] R Unavailable Unavailable Unavailable LADONNA GELLER Unavailable [address] + [place] [address] R Unavailable Unavailable Unavailable LADONNA GELLER Unavailable [address] + [place] [address] R Unavailable Unavailable Unavailable LAODNNA GELLER Unavailable [address] + [place] [address] R Unavailable Unavailable Unavailable LADONNA GELLER Unavailable [address] + [place] [address] R Unavailable Unavailable Unavailable LADONNA GELLER Unavailable [address] + [place] [address] R Unavailable Unavailable Unavailable LADONNA GELLER Unavailable [address] + [place] [address] R Unavailable Unavailable Unavailable LADONNA GELLER Unavailable [address] + [place] [address] R Unavailable Unavailable Unavailable LADONNA GELLER Unavailable [address] + [place] [address] R Unavailable Unavailable Unavailable LADONNA GELLER Unavailable [address] + [place] [address] R Unavailable Unavailable Unavailable LADONNA GELLER Unavailable [address] + [place] [address] R Unavailable Unavailable Unavailable LADONNA GELLER Unavailable [address] + [place] [address] R Unavailable Unavailable Unavailable LADONNA GELLER Unavailable [address] + [place] [address] R Unavailable Unavailable Unavailable LADONNA GELLER Unavailable [address] + [place] [address] R Unavailable Unavailable Unavailable LADONNA GELLER Unavailable [address] + [place] [address] R Unavailable Unavailable Unavailable LADONNA GELLER Unavailable [address] + [place] [address] R Unavailable Unavailable Unavailable LADONNA GELLER Unavailable [address] + [place] [address] R Unavailable Unavailable Unavailable LADONNA GELLER Unavailable [address] + [place] [address] R Unavailable Unavailable Unavailable LADONNA GELLER Unavailable [address] + [place] [address] R Unavailable Unavailable Unavailable LADONNA GELLER Unavailable [address] + [place] [address] R Unavailable Unavailable Unavailable LADONNA GELLER Unavailable [address] + [place] [address] R Unavailable Unavailable Unavailable LADONNA GELLER Unavailable [address] + [place] [address] R Unavailable Unavailable Unavailable LADONNA GELLER Unavailable [address] + [place] [address] R Unavailable Unavailable Unavailable LADONNA GELLER Unavailable [address] + [place] [address] R Unavailable Unavailable Unavailable LADONNA GELLER Unavailable [address] + [place] [address] R Unavailable Unavailable Unavailable LADONNA GELLER Unavailable [address] + [place] [address] R Unavailable Unavailable Unavailable LADONNA GELLER Unavailable [address] + [place] [address] R Unavailable Unavailable Unavailable LADONNA GELLER Unavailable [address] + [place] [address] R Unavailable Unavailable Unavailable LADONNA GELLER Unavailable [address] + [place] [address] R Unavailable Unavailable Unavailable LADONNA GELLER Unavailable [address] + [place] [address] R Unavailable Unavailable Unavailable LADONNA GELLER Unavailable [address] + [place] [address] R Unavailable Unavailable Unavailable LADONNA GELLER Unavailable [address] + [place] [address] R Unavailable Unavailable Unavailable LADONNA GELLER Unavailable [address] + [place] [address] R Unavailable Unavailable Unavailable LADONNA GELLER Unavailable [address] + [place] [address] R Unavailable Unavailable Unavailable LADONNA GELLER Unavailable [address] + [place] [address] R Unavailable Unavailable Unavailable LADONNA GELLER Unavailable [address] + [place] [address] R Unavailable Unavailable Unavailable LADONNA GELLER Unavailable [address] + [place] [address] R Unavailable Unavailable Unavailable LADONNA GELLER Unavailable [address] + [place] [address] R Unavailable Unavailable Unavailable LADONNA GELLER Unavailable [address] + [place] [address] R Unavailable Unavailable Unavailable LADONNA GELLER Unavailable [address] + [place] [address] R Unavailable Unavailable Unavailable LADONNA GELLER Unavailable [address] + [place] [address] R Unavailable Unavailable Unavailable LADONNA GELLER Unavailable [address] + [place] [address] R Unavailable Unavailable Unavailable LADONNA GELLER Unavailable . + [place] [address] R Unavailable Unavailable Unavailable LADONNA GELLER Unavailable . + [place] [address] R Unavailable Unavailable Unavailable LADONNA GELLER Unavailable . + [place] [address] R Unavailable Unavailable Unavailable YIMI LADONNA Unavailable . + [place] [address] R Unavailable Unavailable Unavailable YIMI LADONNA Unavailable . + [place] [address] R Unavailable Unavailable Unavailable YIMI LADONNA Unavailable NA + [place], [place] R Unavailable Unavailable Unavailable YIMI, LADONNA Unavailable . + [place] [address] R Unavailable Unavailable Unavailable YIMI LADONNA Unavailable . + [place] [address] R Unavailable Unavailable Unavailable YIMI LADONNA Unavailable Unavailable + R Unavailable Unavailable [...] LADONNA Unavailable NA + [place], [place] Care Team Providers Name Role Phone Carlos Mcallister Attending Unavailable [facility] Unavailable Carlos Mcallister Attending Unavailable [facility] Unavailable Carlos Mcallister Attending Unavailable [facility] Unavailable Carlos Mcallister Attending Unavailable [facility] Unavailable Carlos Mcallister Attending Unavailable [facility] Unavailable Carlos Mcallister Attending Unavailable [facility] Unavailable Ciara Arambula Attending Unavailable [facility] Care Unavailable Ciara Arambula Referring Unavailable Carlos Mcallister Attending [facility] Referring Unavailable Carlos Mcallister Attending Unavailable Ranney, Christopher Primary Care Unavailable Isckarus, Ciara Attending Unavailable Isckarus, Ninfaour Referring Unavailable [place], [place] [facility] Unavailable IsckarusCiara Consulting Unavailable Isckarus, Ciara Attending Unavailable Isckarus, Mansour Referring Unavailable [place], [place] [facility] Unavailable Isckarus, Ciara Attending Unavailable Isckarus, Mansour Referring Unavailable [place], [place] [facility] Unavailable MoodisCarlos scott Attending Unavailable [place], [place] [facility] Unavailable Moodispabradley, Carlos Attending Unavailable [place], [place] [facility] Unavailable [place], Christopher Attending Unavailable [place], [place] [facility] Unavailable MoodisCarlos scott Attending Unavailable [place], [place] [facility] Unavailable My Matthews Attending Unavailable [place] Referring Unavailable [place], [place] [facility] Unavailable MoodisCarlos scott Attending Unavailable [place], [place] [facility] Unavailable MoodisCarlos scott Attending Unavailable [facility] Unavailable Angelica Kim Attending Unavailable [place], [place] Referring Unavailable PhillipCarly johnson Attending Unavailable MoodCarlos montesinos Attending Unavailable [place], [facility] Unavailable Devin Gamboa Attending Unavailable [place], [facility] Referring Unavailable [facility] Unavailable [facility] Unavailable Ashelfah, Ghasem Admitting Unavailable Thang Ramirez Attending Unavailable [place], Ghasem Admitting Unavailable [place], Ghasem Attending Unavailable [place], [place] [facility] Unavailable [place]helfah, Ghasem Consulting Unavailable [place]helfah, Ghasem Admitting Unavailable Thang Ramirez Attending Unavailable [place], [place] [facility] Unavailable Thang Ramirez Consulting Unavailable MoodispaCarlos huerta Attending Unavailable [place], [place] [facility] Unavailable PhillipCarly johnson Attending Unavailable MoodisCarlos scott Attending Unavailable [place], [facility] Unavailable Devin Gamboa Attending Unavailable [place], [facility] Referring Unavailable [place], [place] [facility] Unavailable MoodCarlos montesinos Attending Unavailable [place], [place] [facility] Unavailable MoodCarlos montesinos Attending Unavailable [place], [place] [facility] Unavailable Carly Phillip Attending Unavailable Devin Gamboa Attending Unavailable [place], [facility] Referring Unavailable MoodisCarlos scott Attending Unavailable [facility] Unavailable [place], Carlos Attending Unavailable [facility] Care Unavailable [place], Carlos Attending Unavailable [facility] Care Unavailable [place] Kim Attending Unavailable [facility] Referring Unavailable [facility] Unavailable [place], Carlos Attending Unavailable [facility] Care Unavailable [place], Carlos Attending Unavailable [facility] Unavailable [place], Carlos Attending Unavailable [facility] Unavailable [place], Carlos Attending Unavailable [facility] Unavailable [facility] Attending Unavailable [facility] Unavailable [facility]ending Unavailable [place], Carlos Attending Unavailable [facility] Unavailable [place], Carlos Attending Unavailable [facility] Unavailable [facility] Carlos Attending Unavailable [facility] Unavailable [facility], Carlos Attending Unavailable [facility] Care Unavailable Angelica Kim Attending Unavailable [facility] Referring Unavailable [facility] Unavailable AgyepongRichie Admitting Unavailable Stephen, Otilio Consulting Unavailable KittoThang garcía Attending Unavailable AgyepongRichie Admitting Unavailable AgyepongRichie Attending Unavailable [facility] Unavailable DamienelfMartha brush Consulting Unavailable Agyepong, Richie Admitting Unavailable KittoThang garcía Attending Unavailable [facility] Unavailable Stephen, Otilio Consulting Unavailable KittoeThang Consulting Unavailable AgyepongRichie Admitting Unavailable [place], Carlos Attending Unavailable [facility] Unavailable Stephen, Otilio Consulting Unavailable KittoeThang Consulting Unavailable Agyepong, Richie Admitting Unavailable KittoThang garcía Attending Unavailable [facility] Care Unavailable Stephen, [place] Consulting Unavailable KittoeThang Consulting Unavailable [place], Carlos Attending Unavailable [facility] Care Unavailable My Matthews Attending Unavailable Otilio Mitchell Attending Unavailable AgRichie akbar Referring Unavailable [place], Carlos Attending Unavailable [facility] Care Unavailable [place], Carlos Attending Unavailable Michael Muse Primary [facility] Unavailable Angelica Kim Attending Unavailable Michael Muse Referring Unavailable Michael Muse Primary Care Unavailable PROBLEMS PROBLEMS DATE TYPE CONDITION / CODE ATTENDING STATUS SOURCE 10/15/2018 Unknown I48.92 - Unspecified Carlos Mcallister Active [facility] atrial flutter / Community I48.92(ICD-10) Hospital Repository 10/15/2018 Unknown I48.0 - Paroxysmal MoodisCarlos scott Active [place] atrial fibrillation Community / I48.0(ICD-10) Hospital Repository 10/15/2018 Unknown Z79.01 - USP MoodCarlos montesinos Active [facility] (current) use of Community anticoagulants / Hospital Z79.01(ICD-10) Repository 08/07/2018 Unknown N18.9 - Chronic My Matthews Active [place] kidney disease, [facility] unspecified / Hospital N18.9(ICD-10) Repository 08/07/2018 Unknown D63.1 - Anemia in My Matthews Active [facility] chronic kidney Community disease / Hospital D63.1(ICD-10) Repository 08/06/2018 Unknown I21.3 - ST elevation Carlos Mcallister Active [facility] (STEMI) myocardial Community infarction of Hospital unspecified site / Repository I21.3(ICD-10) 08/06/2018 Unknown I48.1 - Persistent MoodisCarlos scott Active [facility] atrial fibrillation Community / I48.1(ICD-10) Hospital Repository 08/11/2018 Unknown I42.0 - Dilated Stephen, Otilio Active [place] cardiomyopathy / Community I42.0(ICD-10) Hospital Repository 08/11/2018 Unknown R55 - Syncope and Stephen, [place] Active [facility] collapse / Community R55(ICD-10) Hospital Repository 08/11/2018 Unknown I50.43 - Acute on Stephen, [place] Active [facility] chronic combined Community systolic Hospital (congestive) and Repository diastolic (congestive) heart failure / I50.43(ICD-10) 08/11/2018 Unknown Z95.810 - Presence Stephen, Otilio Active [facility] of automatic Community (implantable) Hospital cardiac Repository defibrillator / Z95.810(ICD-10) 02/13/2018 Unknown I50.22 - Chronic Gamboa, Active [place] systolic Devin [facility] (congestive) heart Hospital failure / Repository I50.22(ICD-10) 11/21/2017 Unknown 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, 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 / [facility] D47.2(ICD-10) Hospital Repository 11/21/2017 Unknown Z01.818 - Encounter Isckarus, Active [place] for other [facility] preprocedural Hospital examination / Repository Z01.818(ICD-10) 11/21/2017 Unknown D69.6 - Isckarus, Active [place] Thrombocytopenia, [facility] unspecified / Hospital D69.6(ICD-10) Repository 11/21/2017 Unknown D61.818 - Other Isckarus, Active [facility] pancytopenia / [facility] D61.818(ICD-10) Hospital Repository 11/21/2017 Unknown D64.9 - Anemia, Isckarus, Active [facility] unspecified / [facility] D64.9(ICD-10) Hospital Repository 11/18/2017 Unknown I50.82 - Angelica Kim Active [facility] Biventricular heart Community failure / Hospital I50.82(ICD-10) Repository 11/18/2017 Unknown I47.2 - Ventricular JulioAngelica newell Active [place] tachycardia / Community I47.2(ICD-10) Hospital Repository PROCEDURES PROCEDURES No Procedure Records FoundRESULTS RESULTS PROTIME W/INR Collected: 10/15/2018 Status: F Source: [place] F[place]ER[place]ICK 10:29 AM [facility] [place] TYPE CODE TESTS RESULT OUT OF REFERENCE UNITS RANGE LAB L9200.1001 11.9-14.4 SEC High PROTIME ISTAT 23.7 Result Comment: Reference Range 11.9 - 14.4 LAB L9200.2000 Normal INR ISTAT 2.00 Result Comment: Critical Value > 3.5 Performed By: #### L9200.0000 #### [facility] Point of Care [address] [place], [place] [address] PROTHROMBIN TIME W/INR Collected: 10/12/2018 Status: F Source: [place] 10:45 AM [facility] [place] TYPE CODE TESTS RESULT OUT OF RANGE REFERENCE UNITS LAB L300.4150 11.7-14.9 SECONDS High PROTIME 33.2 LAB L300.4200 Normal INR 3.2 Performed By: #### L300.3900 #### [facility] [address] [place], [address] PROTHROMBIN TIME W/INR Collected: 10/09/2018 Status: F Source: [place] 12:00 PM [facility] [place] TYPE CODE TESTS RESULT OUT OF REFERENCE UNITS RANGE LAB L300.4150 11.7-14.9 SECONDS High PROTIME 46.0 LAB L300.4200 High alert INR 4.9 Result Comment: CRITICAL VALUE VERIFIED. CALLED TO ALIRIO AT 'S OFFICE. 10/09/18 1244 Steven Chavez. RESULTS READ BACK BY SAME. Performed By: #### L300.3900 #### [facility] [address] [place], [address] PROTHROMBIN TIME W/INR Collected: 10/07/2018 Status: F Source: [place] 11:00 AM [facility] [place] Order Comment: Comments: STANDING ORDER-HOMEBOUND Comments: STANDING ORDER-HOMEBOUND TYPE CODE TESTS RESULT OUT OF REFERENCE UNITS RANGE LAB L300.4150 11.7-14.9 SECONDS High PROTIME 42.9 LAB L300.4200 High alert INR 4.5 Result Comment: CRITICAL VALUE VERIFIED. CALLED TO RENETTA AT 'S OFFICE. 10/07/18 1137 Steven Chavez. RESULTS READ BACK BY SAME. Performed By: #### L300.3900 #### [facility] [address] [place], [address] PROTHROMBIN TIME W/INR Collected: 10/05/2018 Status: F Source: [place] 10:45 AM [facility] [place] Order Comment: Result obtained is for confirmation testing of Fingerstick PT/INR Specimen # [id number] . 10/05/18 1116 RHICKS THIS CONFIRMATION SPECIMEN RESULT IS FROM VENOUS BLOOD. TYPE CODE TESTS RESULT OUT OF REFERENCE UNITS RANGE LAB L300.4150 11.7-14.9 SECONDS High PROTIME 47.2 LAB L300.4200 High alert INR 5.0 Result Comment: CRITICAL VALUE VERIFIED. CALLED TO RITA QUINTERO 10/05/18 1140 Filipe Edwards. RESULTS READ BACK BY RITA . Performed By: #### L300.3900 #### [facility] [address] [place], [address] PROTIME W/INR Collected: 10/05/2018 Status: F Source: [place] FINGERSTICK 10:35 AM [facility] [place] Order Comment: This critical result is preliminary and not confirmed. Venous sample sent to main laboratory for confirmation. A call with confirmation result will follow. See specimen #: [id number] for confirmation result. SPOKE WITH MINI AT [facility] 10/05/18 1117 RHICKS. TYPE CODE TESTS RESULT OUT OF REFERENCE UNITS RANGE LAB L9200.1001 11.9-14.4 SEC High PROTIME ISTAT 58.1 Result Comment: Reference Range 11.9 - 14.4 LAB L9200.2000 High alert INR ISTAT 5.20 Result Comment: Critical Value > 3.5 Performed By: #### L9200.0000 #### [facility] Point of Care [address] [place] [address] PROTIME W/INR Collected: 09/28/2018 Status: F Source: [place] FINGERSTICK 10:46 AM [facility] [place] TYPE CODE TESTS RESULT OUT OF REFERENCE UNITS RANGE LAB L9200.1001 11.9-14.4 SEC High PROTIME ISTAT 30.3 Result Comment: Reference Range 11.9 - 14.4 LAB L9200.2000 Normal INR ISTAT 2.60 Result Comment: Critical Value > 3.5 Performed By: #### L9200.0000 #### [facility] Point of Care [address] [place] [address] PROTIME W/INR Collected: 09/18/2018 Status: F Source: [place]INGER[place]ICK 10:31 AM [facility] [place] TYPE CODE TESTS RESULT OUT OF REFERENCE UNITS RANGE LAB L9200.1001 11.9-14.4 SEC High PROTIME ISTAT 16.1 Result Comment: Reference Range 11.9 - 14.4 LAB L9200.2000 Normal INR ISTAT 1.40 Result Comment: Critical Value > 3.5 Performed By: #### L9200.0000 #### [facility] Point of Care [address] [place] [address] PROTIME W/INR Collected: 08/27/2018 Status: F Source: [place] FINGER[place] 10:36 AM [facility] [place] TYPE CODE TESTS RESULT OUT OF REFERENCE UNITS RANGE LAB L9200.1001 11.9-14.4 SEC High PROTIME ISTAT 23.2 Result Comment: Reference Range 11.9 - 14.4 LAB L9200.2000 Normal INR ISTAT 2.00 Result Comment: Critical Value > 3.5 Performed By: #### L9200.0000 #### [facility] Point of Care [address] [place] [address] CBC W/DIFF, AUTOMATED Collected: 08/20/2018 Status: F Source: [place] 10:30 AM [facility] [place] TYPE CODE TESTS RESULT OUT OF [...] Lymph 0.82 Performed By: #### L100.0100 #### [facility] [address] [place], [address] PROTHROMBIN TIME W/INR Collected: 08/20/2018 Status: F Source: [place] 10:30 AM [facility] [place] Order Comment: Comments: STANDING ORDER/PATIENT IS HOME BOUND Comments: STANDING ORDER/PATIENT IS HOME BOUND TYPE CODE TESTS RESULT OUT OF REFERENCE UNITS RANGE LAB L300.4150 11.7-14.9 SECONDS High PROTIME 43.9 LAB L300.4200 High alert INR 4.6 Result Comment: CRITICAL VALUE VERIFIED. CALLED TO JOE AT [facility] 08/20/18 1108 Francisca Mayberry. RESULTS READ BACK BY SAME . Performed By: #### L300.3900 #### [facility] [address] [place], [address] CARDIOLOGY VISIT Observed: 08/07/2018 Status: F Source: [place] REPORT 4:16 PM [facility] [place] [facility] [address] [place] [address] OFFICE VISIT Date of Service: 08/07/18 MR#: [id number] Acct: [id number] Name: CHRISTIANO VALVERDE Rep #: [id number] : 1940 Provider: VAHID Matthews Age/Sex: 78/F Location[place] [facility] Status: Signed HPI HPI Details: CHRISTIANO VALVERDE, is a 78 F who presents to the office today for a cardiovascular follow-up. 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 Patient was admitted to [facility] in July 2018 for syncopal episode. She [...] it caused renal failure. thyroid, pork [From [place] Thyroid] Allergy (Severe, Verified 08/07/18 13:40) Unknown [...] PO DAILY tab 08/07/18 [History Confirmed 08/07/18] [facility] Medical History Paroxysmal atrial fibrillation (Chronic) MGUS [...] Status: F Source: [place] FINGER[place] 10:59 AM [facility] [place] TYPE CODE TESTS RESULT OUT OF REFERENCE UNITS RANGE LAB L9200.1001 11.9-14.4 SEC High PROTIME ISTAT 18.0 Result Comment: Reference Range 11.9 - 14.4 LAB L9200.2000 Normal INR ISTAT 1.50 Result Comment: Critical Value > 3.5 Performed By: #### L9200.0000 #### [facility] Point of Care [address] [place] [address] DISCHARGE INSTRUCTION Observed: 07/28/2018 Status: F Source: [place] 2:16 PM [facility] [place] [facility] Medical Records Department [address] [place] [address] Instructions for Home/Discharge Instructions 07/28/18 1339 MR#: [id number] Acct: [id number] Name: CHRISTIANO VALVERDE Rep #: [id number] : 1940 78 From: Thang Ramirez MD [...] it caused renal failure. thyroid, pork [From [place] Thyroid] Allergy (Severe, Verified 02/13/18 14:45) Unknown [...] DISCHARGE SUMMARY Observed: 07/28/2018 Status: F Source: [place] 10:47 AM [facility] [place] [facility] Medical Records Department [address] [place] [address] Discharge Summary 07/28/18 1039 MR#: [id number] Acct: [id number] Name: CHRISTIANO VALVERDE Rep #: [id number] : 1940 78 From: Thang Ramirez MD PCP: Michael Muse MD Status: ADM IN Location: [place] [address] Discharge Date and Diagnosis - Problem List [...] (Last Reviewed 07/26/18 @ 08:34 by Richie Rcie MD) Syncope and collapse (Acute) - Physical [...] Date Recorded By Document 07/28/18 05:00 MLS [id number] 07/28/18 05:56 MLS Orthostatic Vitals Standing -Blood [...] 55 Code Visit Inpatient E AND M: [id number] Disch Hosp 07/28/18 1047 <Electronically signed by Thang Ramirez MD> Date Thang Ramirez MD Cosigner Signature (if applicable): Date CC: Michael Muse MD; Thang Ramirez MD Signed 12 LEAD ELECTROCARDIOGRAM Observed: 07/27/2018 Status: F Source: [place] 3:42 PM [facility] REPOSITORY [facility] Cardiovascular Services [address] [place] [address] 12 Lead EKG 07/25/18 2303 MR#: [id number] Acct: [id number] Name: CHRISTIANO VALVERDE Rep #: [id number] : 1940 78 From: Otilio Mitchell MD Attending Dr: Thang Ramirez MD Status: ADM IN Ordering Dr: Rian Lozoya MD Date: 07/25/18 Location: [facility] Sex: F C Admitted: 07/26/18 Test Reason : SYNCOPE Blood Pressure : / mmHG Vent. Rate : 072 BPM Atrial Rate : 057 BPM P-R Int : 000 ms QRS Dur : 224 ms QT Int : 510 ms P-R-T Axes : 000 -48 -06 degrees QTc Int : 558 ms Ventricular-paced rhythm Abnormal ECG Confirmed by OTILIO MITCHELL MD ([id number]), commercial production editor SHAHANA SANDRA ([id number]) on 07/27/2018 3:42:19 PM Referred By: DR LOZOYA Confirmed By:OTILIO MITCHELL MD 07/27/18 1542 Date Otilio Mitchell MD CC: Michael Muse MD; Thang Ramirez MD; Rian Lozoya MD Signed ECHOCARDIOGRAM COMPLETE Observed: 07/27/2018 Status: F Source: [place] 3:09 PM [facility] REPOSITORY [facility] Cardiovascular Services [address] [place] [address] Echo Complete 07/27/18 1054 MR#: [id number] Acct: [id number] Name: CHRISTIANO VALVERDE Rep #: [id number] : 1940 78 From: Otilio Mitchell MD Attending Dr: Thang Ramirez MD Status: ADM IN Ordering Dr: Richie Rice MD Date: 07/26/18 Location: [facility] Sex: F C Admitted: 07/26/18 Reason For [...] Rice Referring Physician: Michael Muse Performed By: Dayday Dupont RCS 07/27/18 1509 Date Otilio Mitchell MD CC: Michael Muse MD; Thang Ramirez MD; Richie Rice MD Date Dictated: 07/27/18 1054 Date Transcribed: 07/27/18 1509 Special Events Fundraiser: Signed CONSULTATION Observed: 07/27/2018 Status: F Source: [place] 7:17 AM [facility] [place] [facility] Medical Records Department [address] [place] [address] Consultation 07/26/18 1705 MR#: [id number] Acct: [id number] Name: CHRISTIANO VALVERDE Rep #: [id number] : 1940 78 From: Otilio Mitchell MD PCP: Michael Muse MD Status: ADM IN Y Location: [place] [address] Reason for Consult Date of Consultation: 07/26/18 [...] nonischemic cardiomyopathy, chronic systolic congestive heart failure Providence Association class IV, valvular heart disease status [...] her office visit she was admitted to [facility] for acute on chronic systolic congestive heart [...] it caused renal failure. thyroid, pork [From [place] Thyroid] Allergy (Severe, Verified 02/13/18 14:45) Unknown [...] Date Recorded By Document 07/26/18 05:45 AML [id number] 07/26/18 05:51 AML Orthostatic Vitals Standing -Blood [...] (Auto) 66.7, Lymph % (Auto) 13.6 L, [place] % (Auto) 11.2 H, Eos % (Auto) [...] Clarity Cloudy, Urine pH 6.0, Ur Specific [place] 1.015, Urine Protein 30 H, Urine Glucose [...] 78.1 H, Lymph % (Auto) 9.6 L, [place] % (Auto) 6.9, Eos % (Auto) 5.0, [...] F Source: [place] NO DIFF 5:26 AM [facility] [place] TYPE CODE TESTS RESULT OUT OF [...] MPV 10.3 Performed By: #### L100.0500 #### [facility] Laboratory [facility] [place], [address] BASIC METABOLIC Collected: 07/27/2018 Status: F Source: [place] PROFILE ([facility]) 5:26 AM [facility] [place] TYPE CODE TESTS RESULT OUT OF [...] GAP 7 Performed By: #### L500.2500 #### [facility] Laboratory [address] [place], [address] PROTHROMBIN TIME W/INR Collected: 07/27/2018 Status: F Source: [place] 5:26 AM [facility] [place] TYPE CODE TESTS RESULT OUT OF RANGE REFERENCE UNITS LAB L300.4150 11.7-14.9 SECONDS High PROTIME 23.7 LAB L300.4200 Normal INR 2.1 Performed By: #### L300.3900 #### [facility] [address] [place], [address] MAGNESIUM Collected: 07/27/2018 Status: F Source: [place] 5:26 AM [facility] [place] TYPE CODE TESTS RESULT OUT OF RANGE REFERENCE UNITS LAB L501.5200 1.6-2.6 mg/dL Normal MG 2.3 Performed By: #### L501.5200 #### [facility] [address] [place], [address] Observed: 07/26/2018 Status: F Source: [place] STOOL OCCULT BLOOD 6:55 PM [facility] [place] RE[facility]ITORY STOB iFOB Occult Blood Negative Performed By: #### M100.7900 #### [facility] [address] [place], [address] TYPE AND SCREEN Collected: 07/26/2018 Status: F Source: [place] 10:00 AM [facility] [place] Order Comment: CMV NEG? N Number [...] NEGATIVE Screen Performed By: #### B101.7450 #### [facility] [address] [facility] [place], [address] Collected: 07/26/2018 Status: F Source: [place] 10:00 AM [facility] [place] TYPE CODE TESTS RESULT OUT OF REFERENCE UNITS RANGE LAB U100.0000 [id number] TRANSFUSED PRODUCT: T AND S with Crossmatch, Red Cells COUNT: 1 Performed By: #### U100.0000 #### Non-[facility] Laboratory - refer to report for specific site HISTORY AND PHYSICAL Observed: 07/26/2018 Status: F Source: [place] EXAM 8:44 AM [facility] [place] [facility] Medical Records Department [address] [place] [address] History and Physical 07/26/18 0741 MR#: [id number] Acct: [id number] Name: CHRISTIANO VALVERDE Rep #: [id number] : 1940 78 From: Richie Rice MD PCP: Michael Muse MD Status: ADM KELSIE Y Location: [place] [address] Problem List (1) Syncope and collapse Status: Acute History of Present Illness Date of Admission: 07/26/18 Chief Complaint: Syncope and fall. The patient is a 78 year old F with a significant history of chronic pancytopenia; monoclonal gammopathy nonischemic cardiomyopathy; chronic congestive heart failure Providence heart association class IV; open heart surgery reportedly with reconstruction of 4 valves; previous clot in his heart; A. fib status post AV node ablation with biventricular ICD placement and left atrial appendage ligation; PFO; hypertension; and hyperlipidemia Canalou-term anticoagulation with Coumadin; who presented because of transient loss of consciousness leading to a fall. She presented to the emergency department on the same day of her symptoms and was admitted after midnight. Patient got up from a bed and was going to the bathroom when she passed out and fell. Her son heard the fall and came to picking tech patient. 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 thyroid, pork [From [place] Thyroid] Allergy (Severe, Verified 02/13/18 14:45) Unknown [...] placement of #28 tricuspid annuloplasty ring @ [facility] S/P tricuspid valve repair (Chronic) Z98.890 05/19/09 [...] Date Recorded By Document 07/26/18 05:45 AML [id number] 07/26/18 05:51 AML Orthostatic Vitals Standing -Blood [...] of nonischemic cardiomyopathy; chronic congestive heart failure Providence heart association class IV with ejection fraction [...] Lovenox. Code Visit OBSV E AND M: [id number] Initial observation care L3 07/26/18 0844 <Electronically signed by Richie Rice MD> Date Richie Rice MD Cosigner Signature: Date (if applicable) CC: Michael Muse MD; Richie Rice MD Signed CBC W/DIFF, AUTOMATED Collected: 07/26/2018 Status: F Source: [place] 7:18 AM [facility] [place] TYPE CODE TESTS RESULT OUT OF [...] Normal 1+ Performed By: #### L100.0100 #### [facility] [address] [facility] [place], [place], [address] BASIC METABOLIC Collected: 07/26/2018 Status: F Source: [place] PROFILE ([facility]) 7:18 AM [facility] [place] TYPE CODE TESTS RESULT OUT OF [...] GAP 6 Performed By: #### L500.2500 #### [facility] [address] [place], [address] EMERGENCY DEPARTMENT Observed: 07/26/2018 Status: F Source: [place] SUMMARY 1:45 AM [facility] [place] [facility] Medical Records Department [address] [place] [address] Emergency Department Summary 07/25/18 2248 MR#: [id number] Acct: [id number] Name: CHRISTIANO VALVERDE Rep #: [id number] : 1940 78 From: Rian Lozoya MD [...] Decompensated CHF This note was generated with [employer] dictation software. It may contain incorrect words, [...] your Primary Care Provider. Call [facility] ([phone]) or report to the closest Emergency Room. Call 911 if necessary. 07/26/18 0145 <Electronically signed by Rian Lozoya MD> Date Rian Lozoya MD Cosigner Signature (If Indicated): Date CC: Michael Muse MD URINALYSIS, COMPLETE Collected: 07/26/2018 Status: F Source: [place] 12:55 AM [facility] [place] Order Comment: Order Date: 07/25/18 Has [...] URINE SEEN Performed By: #### L400.0001 #### [facility] [address] [place], [address] Observed: 07/26/2018 Status: F Source: [place] CULTURE, URINE 12:55 AM [facility] [place] Order Date: 07/26/18 Comments: SPECIMEN IN LAB Urine Culture ORGANISM 1: Escherichia coli [place] Count >100,000 Escherichia coli: REACTION Amoxacillin/Clavulanic Acid [...] <=20 S (NF) indicates non-formulary drug at [facility]. Approval by Infectious Disease Specialist required before non-formulary drugs may be ordered and/or dispensed. Performed By: #### M100.0650 #### [facility] [address] [place], [address] CBC W/DIFF, AUTOMATED Collected: 07/25/2018 Status: F Source: [place] 11:20 PM [facility] [place] TYPE CODE TESTS RESULT OUT OF [...] Lymph 0.51 Performed By: #### L100.0100 #### [facility] [address] [place], [place], [address] COMPREHENSIVE METABOLIC Collected: 07/25/2018 Status: F Source: [place] 11:20 PM [facility] [place] TYPE CODE TESTS RESULT OUT OF [...] 4 Performed By: #### L500.4050, L501.4010 #### [facility] [address] [place], [address] TROPONIN-I Collected: 07/25/2018 Status: F Source: [place] 11:20 PM [facility] [place] TYPE CODE TESTS RESULT OUT OF RANGE REFERENCE UNITS LAB L501.4010 <0.045 ng/mL Normal < 0.015 TROPONIN-I Result Comment: TROPONIN-I EXPECTED VALUES <0.045 Negative 0.045 - 0.590 Consistent with Cardiac Damage > OR = 0.600 Critical Value Not every elevated troponin is indicative of CT. These values should be used with clinical judgement in examining the patient's clinical picture for diagnosis. To establish a diagnosis of CT versus myocardial injury, there must be a demonstrated rise and/or fall in the troponin values, in addition to ischemic symptoms, EKG changes, new regional wall motion abnormality, and/or angiographical evidence. PLEASE NOTE: REFERENCE RANGES EDITED 18 Performed By: #### L500.4050, L501.4010 #### [facility] [address] [place], [address] BNP,B-TYPE NATRIURETIC Collected: 07/25/2018 Status: F Source: [place] PEPTIDE 11:20 PM [facility] [place] [place] TYPE CODE TESTS RESULT OUT OF RANGE REFERENCE UNITS LAB L503.6620 0-100 pg/mL High B-TYPE 2470.4 ADELAIDA PEP Performed By: #### L503.6620 #### [facility] [address] [place], [address] PROTHROMBIN TIME W/INR Collected: 07/25/2018 Status: F Source: [place] 11:20 PM [facility] [place] [place] TYPE CODE TESTS RESULT OUT OF RANGE REFERENCE UNITS LAB L300.4150 11.7-14.9 SECONDS High PROTIME 20.2 LAB L300.4200 Normal INR 1.7 Performed By: #### L300.3900 #### [facility] [address] [place], [address] CHEST 1 VIEW Observed: 07/25/2018 Status: F Source: [place] (PORTABLE) 10:47 PM [facility] [place] Imaging Services [address] [place] [address] Chest 1 View (Portable) MR#: [id number] Acct: [id number] Name: CHRISTIANO VALVERDE Rep #: [id number] : 1940 F 78 From: Carmela Sandra MD PCP: Michael Muse MD Status: REG ER Study: Chest 1 View (Portable) Date of Exam: 07/25/18 Exam# [id number] Ordering Dr: Rian Lozoya MD STUDY: X-RAY [...] CC: Michael Muse MD; Rian Lozoya MD Special Events Fundraiser: Signed BRAIN/HEAD WITHOUT Observed: 07/25/2018 Status: F Source: [place] CONTRAST 10:47 PM [facility] Imaging Services [address] [place] [address] Brain/Head without Contrast MR#: [id number] Acct: [id number] Name: CHRISTIANO VALVERDE Rep #: [id number] : 1940 F 78 From: Mark Anthony Pizarro PCP: Michael Muse MD Status: REG ER Study: Brain/Head without Contrast Date of Exam: 07/25/18 Exam# [id number] Ordering Dr: Rian Lozoya MD STUDY: CT [...] CC: Michael Muse MD; Rian Lozoya MD Special Events Fundraiser: Signed PACEMAKER CHECK Observed: 07/23/2018 Status: F Source: [place] 10:13 AM [facility] [place] [address] [place] [address] Pacemaker Check Date of Service: 07/22/181809 MR#: [id number] Acct: [id number] Name: CHRISTIANO VALVERDE Rep #: [id number] : 1940 From: Angelica Kim Age/Sex: 78/F [place] [facility] Status: Signed Billing Codes ICD Device Billing: ICD Dev Interrogate (Rmt) 07/22/181811 <Electronically signed by Angelica Kim > Date Angelica Kim 07/23/18 1013<Electronically signed by Carlos Mcallister MD> Cosigner Signature: Date (if applicable) Carlos Mcallister MD CC: PROTHROMBIN TIME W/INR Collected: 07/20/2018 Status: F Source: [place] 10:40 AM [facility] [place] TYPE CODE TESTS RESULT OUT OF RANGE REFERENCE UNITS LAB L300.4150 11.7-14.9 SECONDS High PROTIME 24.7 LAB L300.4200 Normal INR 2.2 Performed By: #### L300.3900 #### [facility] [place], [address] PROTHROMBIN TIME W/INR Collected: 07/15/2018 Status: F Source: [place] 10:50 AM [facility] [place] [facility] Order Comment: Result obtained is for confirmation testing of Fingerstick PT/INR Specimen # [id number] . 07/15/18 1106 DMILLER2 THIS CONFIRMATION SPECIMEN RESULT IS FROM VENOUS BLOOD. TYPE CODE TESTS RESULT OUT OF REFERENCE UNITS RANGE LAB L300.4150 11.7-14.9 SECONDS High PROTIME 48.4 LAB L300.4200 High alert INR 5.2 Result Comment: CRITICAL VALUE VERIFIED. CALLED TO RITA AT [facility] 07/15/18 1132 Francisca Mayberry. RESULTS READ BACK BY SAME . Performed By: #### L300.3900 #### [facility] [place], [address] PROTIME W/INR Collected: 07/15/2018 Status: F Source: [place] FINGERSTICK 10:36 AM [facility] [place] TYPE CODE TESTS RESULT OUT OF REFERENCE UNITS RANGE LAB L9200.1001 11.9-14.4 SEC High PROTIME ISTAT 64.8 Result Comment: Reference Range 11.9 - 14.4 LAB L9200.2000 High alert INR ISTAT 5.90 Result Comment: Critical Value > 3.5 Performed By: #### L9200.0000 #### [facility] [address] [place] [address] PROTHROMBIN TIME W/INR Collected: 07/06/2018 Status: F Source: [place] 11:45 AM [facility] [place] Order Comment: Result obtained is for [...] BY SAME. Performed By: #### L300.3900 #### [facility] [place], [address] PROTIME W/INR Collected: 07/06/2018 Status: F Source: [place] FINGERSTICK 11:23 AM [facility] [place] TYPE CODE TESTS RESULT OUT OF REFERENCE UNITS RANGE LAB L9200.1001 11.9-14.4 SEC High PROTIME ISTAT 41.3 Result Comment: Reference Range 11.9 - 14.4 LAB L9200.2000 High alert INR ISTAT 3.70 Result Comment: Critical Value > 3.5 Performed By: #### L9200.0000 #### [facility] Point of Care [address] [place] [address] PROTIME W/INR Collected: 06/29/2018 Status: F Source: [place] FINGERSTICK 10:32 AM [facility] [place] TYPE CODE TESTS RESULT OUT OF REFERENCE UNITS RANGE LAB L9200.1001 11.9-14.4 SEC High PROTIME ISTAT 36.1 Result Comment: Reference Range 11.9 - 14.4 LAB L9200.2000 Normal INR ISTAT 3.20 Result Comment: Critical Value > 3.5 Performed By: #### L9200.0000 #### [facility] [address] [place] [address] PROTIME W/INR Collected: 06/11/2018 Status: F Source: [place] FINGERSTICK 10:30 AM [facility] [place] TYPE CODE TESTS RESULT OUT OF REFERENCE UNITS RANGE LAB L9200.1001 11.9-14.4 SEC High PROTIME ISTAT 20.1 Result Comment: Reference Range 11.9 - 14.4 LAB L9200.2000 Normal INR ISTAT 1.70 Result Comment: Critical Value > 3.5 Performed By: #### L9200.0000 #### [facility] [place] [place] [address] PROTIME W/INR Collected: 06/04/2018 Status: F Source: [place] FINGERSTICK 11:05 AM [facility] [place] TYPE CODE TESTS RESULT OUT OF REFERENCE UNITS RANGE LAB L9200.1001 11.9-14.4 SEC High PROTIME ISTAT 21.4 Result Comment: Reference Range 11.9 - 14.4 LAB L9200.2000 Normal INR ISTAT 1.80 Result Comment: Critical Value > 3.5 Performed By: #### L9200.0000 #### [facility] Point [address] [place], [place] [address] PROTHROMBIN TIME W/INR Collected: 05/28/2018 Status: F Source: [place] 11:55 AM [facility] [place] [facility] Order Comment: TO CONFIRM LOW FINGERSTICK PT/IRN RESULT. THIS IS FIRST TIME WE HAVE DONE FINGERSTICK ON THIS PATIENT AND RESULTS SEEM QUESTIONABLE TYPE CODE TESTS RESULT OUT OF RANGE REFERENCE UNITS LAB L300.4150 11.7-14.9 SECONDS High PROTIME 16.5 LAB L300.4200 Normal INR 1.3 Performed By: #### L300.3900 #### [facility] [address] [place], [address] PROTIME W/INR Collected: 05/28/2018 Status: F Source: [place] FINGERSTICK 11:46 AM [facility] [place] TYPE CODE TESTS RESULT OUT OF REFERENCE UNITS RANGE LAB L9200.1001 11.9-14.4 SEC High PROTIME ISTAT 14.8 Result Comment: Reference Range 11.9 - 14.4 LAB L9200.2000 Normal INR ISTAT 1.20 Result Comment: Critical Value > 3.5 Performed By: #### L9200.0000 #### [facility] Point of Care [address] [place] [address] CBC W/DIFF, AUTOMATED Collected: 05/19/2018 Status: F Source: [place] 11:10 AM [facility] [place] [facility] Order Comment: Reason for Laboratory Test [...] 0.66 Performed By: #### L100.0100, L500.4050 #### [facility] [address] [place], [address] COMPREHENSIVE METABOLIC Collected: 05/19/2018 Status: F Source: [facility] 11:10 AM [facility] [place] [facility] Order Comment: Reason for Laboratory Test [...] 8 Performed By: #### L100.0100, L500.4050 #### [facility] [address] [place], [address] PROTHROMBIN TIME W/INR Collected: 05/19/2018 Status: F Source: [place] 11:10 AM [facility] [place] [facility] TYPE CODE TESTS RESULT OUT OF RANGE REFERENCE UNITS LAB L300.4150 11.7-14.9 SECONDS High PROTIME 19.4 LAB L300.4200 Normal INR 1.6 Performed By: #### L300.3900 #### [facility] [address] [facility] [place], [address] VIANEY + PROTEIN ELECT, Collected: 05/19/2018 Status: F Source: [place] SERUM 11:10 AM [facility] [place] [facility] Order Comment: Reason for Laboratory Test ROUTINE Is Patient Fasting? N TYPE CODE TESTS RESULT OUT OF RANGE REFERENCE UNITS LAB L3100.3500 6.0-8.5 g/dL Normal PROTEIN,TOTAL 6.1 LAB L3200.8832 383-8429 mg/dL Normal IMMUNO G 1037 LAB L3200.1400 64-422 mg/dL Normal IMMUNO A 299 LAB L3200.1500 26-217 mg/dL Normal IMMUNOGL M 29 LAB L3200.1510 2.9-4.4 g/dL Normal ALBUMIN 3.5 LAB L3200.1520 0.0-0.4 g/dL Normal UGPEJ-2-WSMS 0.2 LAB L3200.1530 0.4-1.0 g/dL Normal JXJJM-4-ZSKQ 0.5 LAB L3200.1540 0.7-1.3 g/dL Normal BETA [...] scan will follow via computer, mail, or license issuer delivery. Performed By: #### L3100.3425, L3100.3450 #### [facility] (refer to report for specific site) refer to report for address and phone number PROTEIN ELECTROPH, S Collected: 05/19/2018 Status: F Source: [place] 11:10 AM [facility] [place] [facility] Order Comment: Reason for Laboratory Test [...] scan will follow via computer, mail, or license issuer delivery. Performed at: [facility] [address] [id number] Or Scrub Tech: Fransisco Wade PhD, Phone: [phone] LAB L3914.4277 . Normal Test not NOTE: performed Performed By: #### L3100.3425, L3100.3450 #### [facility] (refer to report for specific site) refer to report for address and phone number PROTHROMBIN TIME W/INR Collected: 04/27/2018 Status: F Source: [place] 11:30 AM [facility] [place] TYPE CODE TESTS RESULT OUT OF RANGE REFERENCE UNITS LAB L300.4150 11.7-14.9 SECONDS High PROTIME 29.6 LAB L300.4200 Normal INR 2.8 Performed By: #### L300.3900 #### [facility] [address] [place], [address] PACEMAKER CHECK Observed: 04/22/2018 Status: F Source: [place] 4:33 PM [facility] [place] [facility] [address] [place] [address] Pacemaker Check Date of Service: 04/10/181716 MR#: [id number] Acct: [id number] Name: CHRISTIANO VALVERDE Rep #: [id number] : 1940 From: Angelica Kim Age/Sex: 77/F [place] [facility] Status: Signed Billing Codes ICD Device Billing: ICD Dev Interrogate (Rmt) 04/10/18 171 <Electronically signed by Angelica Kim > Date Angelica Kim 04/22/18 1633<Electronically signed by Otilio Mitchell MD> Cosign Signature: Date (if applicable) Otilio Mitchell MD CC: BASIC METABOLIC Collected: 04/08/2018 Status: F Source: [place] PROFILE (BMP) 10:50 AM [facility] [place] [facility] TYPE CODE TESTS RESULT OUT OF [...] GAP 6 Performed By: #### L500.2500 #### [facility] [address] [facility] [place], [address] PROTHROMBIN TIME W/INR Collected: 04/08/2018 Status: F Source: [place] 10:50 AM [facility] [place] TYPE CODE TESTS RESULT OUT OF RANGE REFERENCE UNITS LAB L300.4150 11.7-14.9 SECONDS High PROTIME 22.7 LAB L300.4200 Normal INR 2.0 Performed By: #### L300.3900 #### [facility] [address] [facility] [place], [address] PROTHROMBIN TIME W/INR Collected: 03/24/2018 Status: F Source: [place] 10:30 AM [facility] [place] [facility] Order Comment: HOMEDRAW TYPE CODE TESTS RESULT OUT OF RANGE REFERENCE UNITS LAB L300.4150 11.7-14.9 SECONDS High PROTIME 22.0 LAB L300.4200 Normal INR 1.9 Performed By: #### L300.3900 #### [facility] [address] [place], [address] PROTHROMBIN TIME W/INR Collected: 03/17/2018 Status: F Source: [place] 11:00 AM [facility] [place] TYPE CODE TESTS RESULT OUT OF RANGE REFERENCE UNITS LAB L300.4150 11.7-14.9 SECONDS High PROTIME 21.1 LAB L300.4200 Normal INR 1.8 Performed By: #### L300.3900 #### Erica [facility] [place], [place] Laboratory [address] [place], [address] COMPREHENSIVE METABOLIC Collected: 03/17/2018 Status: F Source: [facility] 11:00 AM [facility] [place] [facility] Order Comment: NOT FASTING Order Date: [...] Performed By: #### L500.4050, L501.9520, L100.0100 #### [facility] [address] [facility] [place], [address] THYROID STIM HORMONE Collected: 03/17/2018 Status: F Source: [place] (TSH) 11:00 AM [facility] [place] [facility] Order Comment: NOT FASTING Order Date: 03/05/18 Order Info: 0786-1 - CMP Order Info: 3016-3 - TSH TYPE CODE TESTS RESULT OUT OF RANGE REFERENCE UNITS LAB L501.9520 0.358-3.74 uIU/mL High TSH 6.85 Performed By: #### L500.4050, L501.9520, L100.0100 #### [facility] [address] [facility] [place], [place], [address] CBC W/DIFF, AUTOMATED Collected: 03/17/2018 Status: F Source: [place]ICA 11:00 AM [facility] [place] [facility] Order Comment: Order Date: 03/05/18 Order [...] Performed By: #### L500.4050, L501.9520, L100.0100 #### [facility] [address] [facility]. [place], [place], [address] BNP,B-TYPE NATRIURETIC Collected: 03/17/2018 Status: F Source: [place]ICA PEPTIDE 11:00 AM [facility] [place] TYPE CODE TESTS RESULT OUT OF RANGE REFERENCE UNITS LAB L503.6620 0-100 pg/mL High B-TYPE 1048.7 ADELAIDA PEP Performed By: #### L503.6620 #### [facility] [address] [place], [address] BASIC METABOLIC Collected: 03/03/2018 Status: F Source: [place]ICA PROFILE (BMP) 10:45 AM [facility] [place] [facility] TYPE CODE TESTS RESULT OUT OF [...] GAP 6 Performed By: #### L500.2500 #### [facility] [address] [place], [address] PROTHROMBIN TIME W/INR Collected: 03/03/2018 Status: F Source: [place] 10:45 AM [facility] [place] TYPE CODE TESTS RESULT OUT OF RANGE REFERENCE UNITS LAB L300.4150 11.7-14.9 SECONDS High PROTIME 32.1 LAB L300.4200 Normal INR 3.1 Performed By: #### L300.3900 #### [facility] [address] [place], [address] CARDIOLOGY VISIT Observed: 02/17/2018 Status: F Source: [place] REPORT 9:55 PM [facility] [place] [facility] [facility] [address] [place] [address] OFFICE VISIT Date of Service: 02/13/18 MR#: [id number] Acct: [id number] Name: CHRISTIANO VALVERDE Rep #: [id number] : 1940 Provider: Devin Gamboa Age/Sex: 77/F Location[place] [facility] Status: Signed HPI HPI Details: CHRISTIANO VALVERDE, is a 77 F who presents to the office today for a cardiovascular follow-up. She has a history of nonischemic cardiomyopathy, chronic systolic congestive heart failure Providence Association class IV, valvular heart disease status [...] her office visit she was admitted to [facility] for acute on chronic systolic congestive heart [...] DC PCU 5-8; also 1 M FU Custom Bike Builder Required: No Accompanied by: son Is patient in pain?: No Allergies levothyroxine sodium [From Synthroid] Allergy (Severe, Verified 02/13/18 14:45) Pt states it caused renal failure. thyroid, pork [From [place] Thyroid] Allergy (Severe, Verified 02/13/18 14:45) Unknown latex Allergy (Intermediate, Verified 02/13/18 14:45) Rash Medications Mirtazapine [Remeron] 45 mg PO QHS 10/03/15 [History Confirmed 02/13/18] Sertraline HCl [Zoloft] 100 mg PO QHS 10/03/15 [History Confirmed 02/13/18] Carvedilol [Coreg (Beta Annia)] 6.25 mg PO BID tab 01/14/16 [Rx Confirmed 02/13/18] Dicyclomine HCl [Bentyl] 10 mg PO DAILY 08/29/17 [History Confirmed 02/13/18] Melatonin/Pyridoxine HCl (B6) [Melatonin [...] pills in the evening, then you can picking tech your next Rx- that will be the [...] antibiotic prophylaxis 5. Paroxysmal atrial fibrillation I48.0 Yoni - LOGAN Buitrago Patient is in atrial [...] PO BID ged Follow Up 1 Month ( needs fridays) Coding Level of Care Code [...] by Devin FORD> Date Devin FORD 02/17/18 2155<Electronically signed by Carlos Mcallister MD> Cosigner Signature: Date (if applicable) Carlos Mcallister MD CC: Michael Muse MD PROTHROMBIN TIME W/INR Collected: 02/17/2018 Status: F Source: [place] 10:50 AM [facility] [place] TYPE CODE TESTS RESULT OUT OF RANGE REFERENCE UNITS LAB L300.4150 11.7-14.9 SECONDS High PROTIME 26.7 LAB L300.4200 Normal INR 2.5 Performed By: #### L300.3900 #### [facility] [address] [place], [place], [address] PROTHROMBIN TIME W/INR Collected: 02/10/2018 Status: F Source: [place] 10:30 AM [facility] [place] [facility] Order Comment: HOMEDRAW TYPE CODE TESTS RESULT OUT OF RANGE REFERENCE UNITS LAB L300.4150 11.7-14.9 SECONDS High PROTIME 21.3 LAB L300.4200 Normal INR 1.8 Performed By: #### L300.3900 #### [facility] [address] [place], [address] PROTHROMBIN TIME W/INR Collected: 02/06/2018 Status: F Source: [place] 10:20 AM [facility] [place] [facility] Order Comment: PT/INR TO DR. MCALLISTER BMP TO DEVIN GAMBOA TYPE CODE TESTS RESULT OUT OF RANGE REFERENCE UNITS LAB L300.4150 11.7-14.9 SECONDS High PROTIME 16.3 LAB L300.4200 Normal INR 1.3 Performed By: #### L300.3900 #### [facility] [address] [place], [place], [address] BASIC METABOLIC Collected: 02/06/2018 Status: F Source: [place] PROFILE (BMP) 10:20 AM [facility] [place] [facility] Order Comment: PT/INR TO DR. MCALLISTER [...] GAP 4 Performed By: #### L500.2500 #### [facility] [address] [place], [address] CARDIOLOGY VISIT Observed: 02/06/2018 Status: F Source: [place] REPORT 7:59 AM [facility] [place] [facility] [address] [place] [address] OFFICE VISIT Date of Service: 01/23/18 MR#: [id number] Acct: [id number] Name: CHRISTIANO VALVERDE Rep #: [id number] : 1940 Provider: Devin Gamboa Age/Sex: 77/F Location: [facility] Status: Signed HPI HPI Details: CHRISTIANO VALVERDE, is a 77 F who presents to the office today for a cardiovascular follow-up. She has a history of nonischemic cardiomyopathy, chronic systolic congestive heart failure Providence Association class IV, valvular heart disease status [...] 102/62 Intake Visit Reasons: 6 wk FU Custom Bike Builder Required: No Accompanied by: son Is patient in pain?: No Allergies levothyroxine sodium [From Synthroid] Allergy (Severe, Verified 01/23/18 14:09) Pt states it caused renal failure. thyroid, pork [From [place] Thyroid] Allergy (Severe, Verified 01/23/18 14:09) Unknown [...] by Devin FORD> Date Devin FORD 02/06/18 5746<Electronically signed by Carlos Mcallister MD> Cosigner Signature: Date (if applicable) aCrlos Mcallister MD CC: Michael Muse MD 12 LEAD ELECTROCARDIOGRAM Observed: 01/28/2018 Status: F Source: [place]ICA 1:20 PM [facility] Cardiovascular Services [address] [place] [address] 12 Lead EKG 01/25/182138 MR#: [id number] Acct: [id number] Name: CHRISTIANO VALVERDE Rep #: [id number] : 1940 77 From: Carlos Mcallister MD Attending Dr: Thang Ramirez MD Status: DIS IN Ordering Dr: Agata Morejon MD Date: 01/25/18 Location: [facility] Sex: F C Admitted: 01/25/18 Test Reason : SOB Blood Pressure : / mmHG Vent. Rate : 141 BPM Atrial Rate : 038 BPM P-R Int : 000 ms QRS Dur : 090 ms QT Int : 086 ms P-R-T Axes : 000 -24 000 degrees QTc Int : 131 ms Electronic ventricular pacemaker Borderline ECG Confirmed by ESVIN PAUL, CARLOS ([id number]), commercial production editor SHAHANA SANDRA ([id number]) on 01/28/2018 1:19:55 PM Referred By: DASIY Confirmed By:CARLOS MCALLISTER MD 01/28/18 1320 Date Carlos Mcallister MD CC: Agata Morejon MD; Michael Muse MD; Thang Ramirez MD Signed DISCHARGE INSTRUCTION Observed: 01/27/2018 Status: F Source: [place]ICA 9:49 AM [facility] Medical Records Department [address] [place] [address] Instructions for Home/Discharge Instructions 01/27/1848 MR#: [id number] Acct: [id number] Name: CHRISTIANO VALVERDE Rep #: [id number] : 1940 77 From: Thang Ramirez MD PCP: Michael Muse MD Status: ADM IN You will use the following diet at home:: Cardiac, Fluid restricted (specify 2000 mls, 1500 mls) - 1999 Discharge Activity: Return to Normal Activity Allergies/Adverse Reactions: Allergies levothyroxine sodium [From Synthroid] Allergy (Severe, Verified 01/23/18 14:09) Pt states it caused renal failure. thyroid, pork [From [place] Thyroid] Allergy (Severe, Verified 01/23/18 14:09) Unknown [...] in 1-2 weeks Proposed Discharge Date: 01/27/18 01/27/18 0949 <Electronically signed by Thang Ramirez MD> Date Thang Ramirez MD CC: Michael Muse MD DISCHARGE SUMMARY Observed: 01/27/2018 Status: F Source: [place] 9:40 AM [facility] [place] [facility] Medical Records Department [address] [place] [address] Discharge Summary 01/27/18 0936 MR#: [id number] Acct: [id number] Name: CHRISTIANO VALVERDE Rep #: [id number] : 1940 77 From: Thang Ramirez MD PCP: Michael Muse MD Status: ADM IN Y Location: [place] [address]-1 Discharge Date and Diagnosis Date of Admission: [...] thinning. No evidence of bowel obstruction. at 8447 Reported and signed by: Shahana Maddox MD [...] 20 Code Visit Inpatient E AND M: 27039 Disch Hosp 01/27/18 0940 <Electronically signed by Thang Ramirez MD> Date Thang Ramirez MD Cosigner Signature (if applicable): Date CC: Michael Muse MD; Thang Ramirez MD Signed TROPONIN-I Collected: 01/26/2018 Status: F Source: [place] 11:50 AM [facility] [place] Order Comment: 'TROP' Serial specimen #1, #2, #3, or #4: 4 TYPE CODE TESTS RESULT OUT OF RANGE REFERENCE UNITS LAB L501.4010 <0.06 ng/mL Normal < 0.02 TROPONIN-I Result Comment: TROPONIN-I EXPECTED VALUES <0.05 NEGATIVE 0.06 - 0.[address] > OR = 0.[address] Performed By: #### L501.4010, L500.2500 #### [facility] [address] [place], [address] ABDOMEN/PELVIS WITH Observed: 01/26/2018 Status: F Source: ERICA CONTRAST 9:14 AM [facility] REPOSITORY [facility] Imaging Services [address] [place] [address] Abdomen/Pelvis WITH Contrast MR#: [id number] Acct: [id number] Name: CHRISTIANO VALVERDE Rep #: [id number] : 1940 F 77 From: Axel Condon MD PCP: Michael Muse MD Status: ADM IN Study: Abdomen/Pelvis WITH Contrast Date of Exam: 01/26/18 Exam# [id number] Ordering Dr: Thang Ramirez MD STUDY: CT [...] CC: Michael Muse MD; Thang Ramirez MD Special Events Fundraiser: Signed BASIC METABOLIC Collected: 01/26/2018 Status: F Source: [place] PROFILE (BMP) 5:35 AM [facility] [place] Order Comment: 'TROP' Serial specimen #1, [...] 5 Performed By: #### L501.4010, L500.2500 #### [facility] Laboratory [address] [place], [place], [address] CBC W/DIFF, AUTOMATED Collected: 01/26/2018 Status: F Source: [place] 5:35 AM [facility] [place] [facility] TYPE CODE TESTS RESULT OUT OF [...] Lymph 0.67 Performed By: #### L100.0100 #### [facility] [place], [address] PROTHROMBIN TIME W/INR Collected: 01/26/2018 Status: F Source: [place] 5:35 AM [facility] [place] [facility] TYPE CODE TESTS RESULT OUT OF RANGE REFERENCE UNITS LAB L300.4150 11.7-14.9 SECONDS High PROTIME 22.7 LAB L300.4200 Normal INR 2.0 Performed By: #### L300.3900 #### [facility] [address] [place], [address] MAGNESIUM Collected: 01/26/2018 Status: F Source: [place] 2:10 AM [facility] [place] TYPE CODE TESTS RESULT OUT OF RANGE REFERENCE UNITS LAB L501.5200 1.6-2.6 mg/dL Normal MG 2.4 Performed By: #### L501.5200 #### [facility] [address] [place], [address] HISTORY AND PHYSICAL Observed: 01/26/2018 Status: F Source: [place] EXAM 1:24 AM [facility] [place] [facility] Medical Records Department [address] [place] [address] History and Physical 01/26/18 0005 MR#: [id number] Acct: [id number] Name: CHRISTIANO VALVERDE Rep #: [id number] : 1940 77 From: Martha Hernandez MD PCP: Michael Muse MD Status: ADM IN Location: [place] [address] Problem List (1) Atrial flutter Status: Chronic [...] it caused renal failure. thyroid, pork [From [place] Thyroid] Allergy (Severe, Verified 01/23/18 14:09) Unknown [...] systolic and diastolic CHF: Admit to PCU, well driller, serial cardiac enzymes, fluid restriction to less [...] chronic pancytopenia/MGUS. This note was generated with Pathway Lending[employer] software. It may contain incorrect words, spelling, and punctuation that were not noted in checking the note before signing. Code Visit Inpatient E AND M: 50994 Init Hosp 01/26/18 0124 <Electronically signed by Martha Hernandez MD> Date Martha Hernandez MD Cosigner Signature: Date (if applicable) CC: Michael Muse MD; Martha Hernandez Signed EMERGENCY DEPARTMENT Observed: 01/26/2018 Status: F Source: [place] SUMMARY 12:00 AM [facility] [place] [facility] Medical Records Department [address] [place] [address] Emergency Department Summary 01/25/18 2211 MR#: [id number] Acct: [id number] Name: CHRISTIANO VALVERDE Rep #: [id number] : 1940 77 From: Agata Morejon MD [...] pleural effusion This note was generated with Tailored Fit dictation software. It may contain incorrect words, [...] your Primary Care Provider. Call [facility] ([phone]) or report to the closest Emergency Room. Call 911 if necessary. 01/26/18 0000 <Electronically signed by Agata Morejon MD> Date Agata Morejon MD Cosigner Signature (If Indicated): Date CC: Michael Muse MD CBC W/DIFF, AUTOMATED Collected: 01/25/2018 Status: F Source: [place] 10:01 PM [facility] [place] [facility] TYPE CODE TESTS RESULT OUT OF [...] Lymph 0.64 Performed By: #### L100.0100 #### [facility] [address] [facility] [place], [address] PROTHROMBIN TIME W/INR Collected: 01/25/2018 Status: F Source: [place] 10:01 PM [facility] [place] [facility] TYPE CODE TESTS RESULT OUT OF RANGE REFERENCE UNITS LAB L300.4150 11.7-14.9 SECONDS High PROTIME 23.8 LAB L300.4200 Normal INR 2.1 Performed By: #### L300.3900 #### [facility] [address] [facility] [place], [address] BASIC METABOLIC Collected: 01/25/2018 Status: F Source: [place] PROFILE (BMP) 10:01 PM [facility] [place] [facility] Order Comment: 'TROP' Serial specimen #1, [...] 5 Performed By: #### L500.2500, L501.4010 #### [facility] [address] [facility] [place], [address] TROPONIN-I Collected: 01/25/2018 Status: F Source: [place] 10:01 PM [facility] [place] [facility] Order Comment: 'TROP' Serial specimen #1, #2, #3, or #4: 1 TYPE CODE TESTS RESULT OUT OF RANGE REFERENCE UNITS LAB L501.4010 <0.06 ng/mL Normal < 0.02 TROPONIN-I Result Comment: TROPONIN-I EXPECTED VALUES <0.05 NEGATIVE 0.06 - 0.[address] > OR = 0.[address] Performed By: #### L500.2500, L501.4010 #### [facility] [address] [facility] [place], [address] BNP,B-TYPE NATRIURETIC Collected: 01/25/2018 Status: F Source: [place] PEPTIDE 10:01 PM [facility] [place] [facility] TYPE CODE TESTS RESULT OUT OF RANGE REFERENCE UNITS LAB L503.6620 0-100 pg/mL High B-TYPE 1252.2 ADELAIDA PEP Performed By: #### L503.6620 #### [facility] [address] [facility] [place], [address] CHEST 1 VIEW Observed: 01/25/2018 Status: F Source: [place]ICA (PORTABLE) 9:28 PM [facility] [place] [facility] Imaging Services [address] [place] [address] Chest 1 View (Portable) MR#: [id number] Acct: [id number] Name: CHRISTIANO VALVERDE Rep #: [id number] : 1940 F 77 From: Maurice Da Silva PCP: Michael Muse MD Status: REG ER Study: Chest 1 View (Portable) Date of Exam: 01/25/18 Exam# [id number] Ordering Dr: Agata Morejon MD STUDY: X-RAY [...] CC: Agata Morejon MD; Michael Muse MD Special Events Fundraiser: Signed ABDOMEN/PELVIS WITHOUT Observed: 01/25/2018 Status: F Source: [place] CONT 9:28 PM [facility] [place] [facility] Imaging Services [address] [place] [address] Abdomen/Pelvis without Cont MR#: [id number] Acct: [id number] Name: CHRISTIANO VALVERDE Rep #: [id number] : 1940 F 77 From: Shahana Maddox MD PCP: Michael Muse MD Status: REG ER Study: Abdomen/Pelvis without Cont Date of Exam: 01/25/18 Exam# [id number] Ordering Dr: Agata Morejon MD CT Abdomen [...] CC: Agata Morejon MD; Michael Muse MD Special Events Fundraiser: Signed PACEMAKER CHECK Observed: 01/22/2018 Status: F Source: [place] 4:41 PM [facility] [place] [facility] [address] [place] [address] Pacemaker Check Date of Service: 01/09/18 1541 MR#: [id number] Acct: [id number] Name: CHRISTIANO VALVERDE Rep #: [id number] : 1940 From: Angelica Kim Age/Sex: 77/F [place] [facility] Status: Signed Comments Summary Comments: Remote Bi-VICD [...] Location: remote Interview Reason: scheduled follow up Construction Skills Teacher: Medtronic Name: Viva XT VISION THERAPIST-D Model: LQCR4A3 Serial #: [id number] Implant Date: 05/22/17 Year(s): 0 Implant Physician: Dr. Kwasi Fisher/[facility] Patient Characteristics Atrial Indication: Permanent atrial fibrillation Ventricular Indication: Nonsustained VT Patient Substrate: Nonischemic cardiomyopathy (Hypertrophic) Ejection fraction %: 20 to 24 (07/2016) By: Echo Underlying rhythm: Atrial fibrillation Pacemaker Dependent: Yes (no intrinsic R waves) Device Characteristics Device: Biventricular Type: Implantable defibrillator Remote Follow-Up: [facility] Leads Lead #1 Construction Skills Teacher Lead 1: Medtronic Model Lead 1: 5076 Serial# Lead 1: [id number] Date Implanted Lead 1: 07/16/07 Position Lead 1: RA Lead #2 Construction Skills Teacher Lead 2: Medtronic Model Lead 2: 6947 Serial# Lead 2: [id number] Date Implanted Lead 2: 07/16/07 Position Lead 2: RV Lead #3 Construction Skills Teacher Lead 3: Medtronic Model Lead 3: 4193 Serial# Lead 3: [id number] Date Implanted Lead 3: 07/16/07 Position Lead [...] 01/22/18 1641<Electronically signed by Carlos Mcallister MD> Cosigner Signature: Date (if applicable) Carlos Mcallistre MD CC: PROTHROMBIN TIME W/INR Collected: 01/22/2018 Status: F Source: [place] 10:30 AM [facility] [place] [facility] Order Comment: HOMEDRAW TYPE CODE TESTS RESULT OUT OF RANGE REFERENCE UNITS LAB L300.4150 11.7-14.9 SECONDS High PROTIME 34.5 LAB L300.4200 Normal INR 3.4 Performed By: #### L300.3900 #### Erica [facility] [place] [place] Laboratory [address] [place], [address] PROTHROMBIN TIME W/INR Collected: 12/30/2017 Status: F Source: ERICA 10:45 AM [facility] [place] [facility] Order Comment: HOMEDRAW ORDERED PT, INTERNAL ORDER BY MY MATTHEWS FOR [facility] TYPE CODE TESTS RESULT OUT OF RANGE REFERENCE UNITS LAB L300.4150 11.7-14.9 SECONDS High PROTIME 24.4 LAB L300.4200 Normal INR 2.2 Performed By: #### L300.3900, L500.2500 #### [facility] Laboratory [address] [place], [place], [address] BASIC METABOLIC Collected: 12/30/2017 Status: F Source: [place] PROFILE (BMP) 10:45 AM [facility] [place] [facility] Order Comment: HOMEDRAW ORDERED PT, INTERNAL ORDER BY MY MATTHEWS FOR BMP Comments: Lasix increased. Outreach to [...] 8 Performed By: #### L300.3900, L500.2500 #### [facility] [address] [place], [address] PROTHROMBIN TIME W/INR Collected: 12/16/2017 Status: F Source: ERICA 10:40 AM [facility] [place] [facility] Order Comment: HOMEDRAW TYPE CODE TESTS RESULT OUT OF RANGE REFERENCE UNITS LAB L300.4150 11.7-14.9 SECONDS High PROTIME 28.6 LAB L300.4200 Normal INR 2.7 Performed By: #### L300.3900 #### [facility] [address] [place], [address] CARDIOLOGY VISIT Observed: 12/13/2017 Status: F Source: [place] REPORT 12:02 PM [facility] [place] [facility] [address] [place] [address] OFFICE VISIT Date of Service: 12/12/17 MR#: [id number] Acct: [id number] Name: CHRISTIANO VALVERDE Rep #: [id number] : 1940 Provider: VAHID Matthews Age/Sex: 77/F Location: [facility] Status: Signed HPI HPI Details: CHRISTIANO VALVERDE, is a 77 F who presents to the office today for a cardiovascular outpatient follow-up. She has a history of nonischemic cardiomyopathy, chronic systolic congestive heart failure Providence Association class IV, valvular heart disease status [...] Visit Reasons: per MS, inc fatigue, sob Custom Bike Builder Required: No Accompanied by: Son Is patient in pain?: No Allergies levothyroxine sodium [From Synthroid] Allergy (Severe, Verified 12/12/17 15:33) Pt states it caused renal failure. thyroid, pork [From [place] Thyroid] Allergy (Severe, Verified 12/12/17 15:33) Unknown [...] 12/12/17] Ejection fraction %: 20 to 24 [facility] Medical History USP current use of anticoagulant (Chronic) Paroxysmal atrial [...] subsides. 7. AICD (automatic cardioverter/defibrillator) present Z95.810 DUC Ferrara Patient's most recent pacemaker check from September [...] asked to keep in touch with primary college director or primary care physician for this. Plan [...] type D64.9 Anemia type: unspecified type 12/12/17 4346 <Electronically signed by My XAVIER> Date My Matthews POISON INFORMATION SPECIALIST-C 12/13/17 1202<Electronically signed by Otilio Mitchell MD> Cosigner Signature: Date (if applicable) Otilio Mitchell MD CC: Michael Muse MD PROTHROMBIN TIME W/INR Collected: 11/25/2017 Status: F Source: [place]ICA 10:05 AM [facility] [place] [facility] TYPE CODE TESTS RESULT OUT OF RANGE REFERENCE UNITS LAB L300.4150 11.7-14.9 SECONDS High PROTIME 29.4 LAB L300.4200 Normal INR 2.8 Performed By: #### L300.3900 #### [facility] [address] [place], [address] BNP,B-TYPE NATRIURETIC Collected: 11/14/2017 Status: F Source: ERICA PEPTIDE 12:22 PM [facility] [place] [facility] TYPE CODE TESTS RESULT OUT OF RANGE REFERENCE UNITS LAB L503.6620 0-100 pg/mL High B-TYPE 776.2 ADELAIDA PEP Performed By: #### L503.6620 #### [facility] [address] [place], [address] COMPREHENSIVE METABOLIC Collected: 11/14/2017 Status: F Source: ERICA PROFIL 12:22 PM [facility] [place] Order Comment: Order Date: 11/14/17 Order [...] By: #### L500.4050, L501.9520, L100.0100, L506.1000 #### [facility] [address] [place], [place], [address] THYROID STIM HORMONE Collected: 11/14/2017 Status: F Source: ERICA (TSH) 12:22 PM [facility] [place] Order Comment: Order Date: 11/14/17 Order Info: 0786-1 - CMP Order Info: 3016-3 - TSH TYPE CODE TESTS RESULT OUT OF RANGE REFERENCE UNITS LAB L501.9520 0.358-3.74 uIU/mL High TSH 6.17 Performed By: #### L500.4050, L501.9520, L100.0100, L506.1000 #### [facility] [place], [address] CBC W/DIFF, AUTOMATED Collected: 11/14/2017 Status: F Source: ERICA 12:22 PM [facility] [place] Order Comment: Order Date: 11/14/17 Order [...] By: #### L500.4050, L501.9520, L100.0100, L506.1000 #### [facility] [address] [place], [address] VITAMIN D,25 HYDROXY Collected: 11/14/2017 Status: F Source: ERICA 12:22 PM [facility] [place] Order Comment: Order Date: 11/14/17 Order Info: 00131-4 - VITD25 TYPE CODE TESTS RESULT OUT OF REFERENCE UNITS RANGE LAB L506.1000 19.95-100.01 ng/mL Low Vitamin D 8.0 25-OH Result Comment: Vitamin D 25(OH) Status Range Deficiency <20 ng/mL (50nmol/L) Insuffciency 20 - 30 ng/mL (50 - 75 nmol/L) Sufficiency 30 - 100 ng/mL (75 - 250 nmol/L) Toxicity >100 ng/mL (>250 nmol/L) Performed By: #### L500.4050, L501.9520, L100.0100, L506.1000 #### [facility] [address] [place], [address] PROTHROMBIN TIME W/INR Collected: 11/11/2017 Status: F Source: ERICA 10:50 AM [facility] [place] TYPE CODE TESTS RESULT OUT OF RANGE REFERENCE UNITS LAB L300.4150 11.7-14.9 SECONDS High PROTIME 26.4 LAB L300.4200 Normal INR 2.5 Performed By: #### L300.3900 #### [facility] [address] [place], [address] BONE SURVEY COMP(AXIAL Observed: 10/31/2017 Status: F Source: ERICA AND APPEND) 2:34 PM [facility] [place] [facility] Imaging Services [address] [place] [address] Bone Survey Comp(Axial AND Append) MR#: [id number] Acct: [id number] Name: CHRISTIANO VALVERDE Rep #: [id number] : 1940 F 77 From: Phuc Kennedy DO PCP: Michael Muse MD Status: REG CLI Study: Bone Survey Comp(Axial AND Append) Date of Exam: 10/31/17 Exam# [id number] Ordering Dr: Ciara Arambula MD STUDY: X-RAY [...] Phuc Kennedy DO at 18:52 EST Tel [phone], Service support , CC: Michael Muse MD; Ciara Arambula MD Special Events Fundraiser: Signed PROTHROMBIN TIME W/INR Collected: 10/27/2017 Status: F Source: ERICA 11:25 AM [facility] [place] [facility] TYPE CODE TESTS RESULT OUT OF RANGE REFERENCE UNITS LAB L300.4150 11.7-14.9 SECONDS High PROTIME 23.3 LAB L300.4200 Normal INR 2.2 Performed By: #### L300.3900 #### Erica [facility] [place] [facility] [address] [place], [address] OFFICE VISIT REPORT Observed: 10/20/2017 Status: F Source: ERICA 8:16 AM [facility] [place] [facility] [address] [place] [address] OFFICE VISIT Date of Service: 10/07/17 MR#: [id number] Acct: [id number] Patient: CHRISTIANO VALVERDE Rep #: [id number] : 1940 Provider: Angelica Kim Age/Sex: 77/F Location: BMS.WHG Status: Signed Comments Summary Comments: Remote Bi-VICD [...] Location: remote Interview Reason: scheduled follow up Construction Skills Teacher: [employer]tr[employer] Name: Viva XT VISION THERAPIST-D Model: [id number] Serial #: [id number] Implant Date: 05/22/17 Year(s): 0 Implant Physician: Dr. Kwasi Fisher/[facility] Patient Characteristics Atrial Indication: Permanent atrial fibrillation Ventricular Indication: Nonsustained VT Patient Substrate: Nonischemic cardiomyopathy (Hypertrophic) Ejection fraction %: 20 to 24 (07/2016) By: Echo Underlying rhythm: Atrial fibrillation Pacemaker Dependent: Yes (no intrinsic R waves) Device Characteristics Device: Biventricular Type: Implantable defibrillator Remote Follow-Up: [employer] Play Leads Lead #1 Construction Skills Teacher Lead 1: Medtronic Model Lead 1: 5076 Serial# Lead 1: [id number] Date Implanted Lead 1: 07/16/07 Position Lead 1: RA Lead #2 Construction Skills Teacher Lead 2: Medtronic Model Lead 2: 6947 Serial# Lead 2: [id number] Date Implanted Lead 2: 07/16/07 Position Lead 2: RV Lead #3 Construction Skills Teacher Lead 3: Medtronic Model Lead 3: 4193 Serial# Lead 3: [id number] Date Implanted Lead 3: 07/16/07 Position Lead [...] Date (if applicable) Carlos Mcallister MD CC: ALLERGIES ALLERGIES DATE TYPE / CODE NAME / CODE REACTION SEVERITY SOURCE 08/07/2018 Drug thyroid, Unknown [place] Allergy/416 pork/[id number](RXN Community 444015([facility] ED CT) Repository 08/07/2018 Drug levothyroxine Pt states it [place] Allergy/416 sodium/[id number](R caused renal Community 813535([facility] XNORM) failure. [facility] ED CT) Repository 08/07/2018 Drug latex/[id number](RX Rash [place] Allergy/416 NORM) Community 897708([facility] ED CT) Repository ENCOUNTERS ENCOUNTERS ADMIT/DISCHARGE ACCOUNT ADMITTING ENCOUNTER LOCATION SOURCE NUMBER CLASS 10/15/2018 [id number] Ambulatory [place] Eric[place] 1 [facility] ing:LAB Repository 10/12/2018 [id number] Ambulatory [place] 8 [facility] ing:LABSPEC Repository 10/09/2018 [id number] Ambulatory [place] 8 [facility] ing:LAB Repository 10/07/2018 [id number] Ambulatory Erica Erica 4 [facility] ing:LAB Repository 10/05/2018 [id number] Ambulatory [place] 9 [facility] ing:LAB Repository 09/28/2018 [id number] Ambulatory [place] 3 [facility] ing:LAB Repository 09/18/2018 [id number] Ambulatory Erica Erica 9 [facility] ing:LAB Repository 08/27/2018 [id number] Ambulatory Erica Erica 3 [facility] ing:LAB Repository 08/20/2018 [id number] Ambulatory [place] 4 [facility] ing:LAB Repository 08/07/2018/ [id number] Ambulatory BMSBuilding:B [place] 8 2 [facility] Repository 08/06/2018 [id number] Ambulatory [place] 6 [facility] ing:LAB Repository 07/26/2018/ [id number] Agyepong, Inpatient [place] 8 7 Richie Encounter [facility] ing:PCURoom: Repository [id number]: 1 07/26/2018 [id number] Agyepong, Ambulatory BMSBuilding:B [place] 5 [place].[facility] Repository 07/26/2018 [id number] Agyepong, Ambulatory BMSBuilding:B [place] 4 [place] MS.[facility] Repository 07/26/2018 [id number] Agyepong, Ambulatory BMSBuilding:B [place] 0 [place] [facility] Repository 07/26/2018/ [id number] Ambulatory BMSBuilding:W [place] 8 7 [facility] Repository 07/26/2018 [id number] Agyepong, Ambulatory BMSBuilding:B [place] 1 [place] [facility] Repository 07/22/2018/ [id number] Ambulatory BMSBuilding:B [place] 8 9 [facility] Repository 07/20/2018 [id number] [facility]ulatory [facility] Repository 07/15/2018 [id number] Ambulatory [place] 3 [facility] ing:LAB Repository 07/06/2018 [id number] Ambulatory [place] 3 [facility] ing:LAB Repository 06/29/2018 [id number] Ambulatory Erica Erica 5 [facility] ing:LAB Repository 06/19/2018 [id number] Ambulatory BMSBuilding:B [place] 3 [facility] Repository 06/11/2018 [id number] Ambulatory [place] 3 [facility] ing:LAB Repository 06/04/2018 [id number] Ambulatory [place] 0 [facility] ing[facility]LAB Repository 05/28/2018 [id number] Ambulatory [place] 8 [facility] ing:LAB Repository 05/19/2018 [id number] Ambulatory [place] 7 [facility] ing:LAB Repository 04/27/2018 [id number] Ambulatory [place] [facility] 6 [facility] ing:LABSPEC Repository 04/10/2018/ [id number] Ambulatory BMSBuilding:B [place] 8 7 [facility] Repository 04/08/2018 [id number] Ambulatory [place] 3 [facility] ing:LAB Repository 03/24/2018 [id number] Ambulatory [place] 3 [facility] ing:LABSPEC Repository 03/17/2018 [id number] Ambulatory [place] 2 [facility] ing:LABSPEC Repository 03/13/2018 [id number] Ambulatory BMSBuilding:B [place] 7 [facility] Repository 03/06/2018 [id number] Ambulatory BMS Eric[place] 9 [facility] Hospital Repository 03/03/2018 [id number] Ambulatory [place] 1 [facility] ing:LABSPEC Repository 02/17/2018 [id number] Ambulatory [place] 5 [facility] ing:LABSPEC Repository 02/13/2018/ [id number] Ambulatory BMSBuilding:B [place] 8 4 [facility] Repository 02/10/2018 [id number] Ambulatory [place] 9 [facility] ing:LABSPEC Repository 02/09/2018 [id number] Ambulatory BMS [place] 8 [facility] Repository 02/06/2018 [id number] Ambulatory Erica Erica 2 [facility] ing:LAB Repository 01/25/2018/ [id number] Ashelf, Inpatient [place] 8 4 Ghasem Encounter [facility] ing:PCURoom: Repository SQN651Rym: 1 01/25/2018 [id number] Ashelf, Ambulatory BMSBuilding:B [place] 0 [place] [facility] Repository 01/25/[id number] [facility], Ambulatory BMSBuilding:B [place] 7 [place] [facility] Repository 01/23/2018/ [id number] Ambulatory BMSBuilding:B [place] 8 5 [facility] Repository 01/22/2018 [id number] Ambulatory [place] 8 [facility] ing:LABSPEC Repository 01/15/2018 [id number] Ambulatory BMS Eric[place] 3 [facility] Repository 01/09/2018/ [id number] Ambulatory BMSBuilding:B [place] 8 2 [facility] Repository 12/30/2017 [id number] Ambulatory [place] 4 [facility] ing:LABSPEC Repository 12/29/2017 [id number] Ambulatory BMSBuilding:B [place] 0 [facility] Repository 12/16/2017 [id number] Ambulatory Erica Eric[place] 4 [facility] Hospital ing:LABSPEC Repository 12/12/2017/03/23 [id number] Ambulatory BMSBuilding:B [place] 8 7 [facility] Repository 11/25/2017 [id number] Ambulatory [place] 8 [facility] ing:LAB Repository 11/14/2017 [id number] Ambulatory [place] 6 [facility] ing:MFPLAB Repository 11/11/2017 [id number] Ambulatory [place] 0 [facility] ing:LAB Repository 11/07/2017 [id number] Ambulatory [place] 6 [facility] ing:CT Repository 10/31/2017 [id number] Ambulatory [place] 3 [facility] ing:RAD Repository 10/28/2017 [id number] Ambulatory [place] 3 [facility] ing:OMD Repository 10/28/2017 [id number] Ambulatory BMSBuilding:B [place] 7 [facility] Repository 10/27/2017 [id number] Ambulatory [place] 2 [facility] ing:LAB Repository 10/07/2017/ [id number] Ambulatory BMSBuilding:B [place] 8 0 [facility] Repository PAYERS PAYERS ENCOUNTER GUARANTOR PAYER SUBSCRIBER SOURCE 10/15/2018 CHRISTIANO C Primary CHRISTIANO C Eric[place] [id number] DEER Insurance:MEDICARE BUTCHERDOB: [facility], PART A BPolicy [id number] [address]Cti: Number: Repository [id number] () Date:2018-10-15 10/15/2018 Secondary CHRISTIANO C Eric[place] Insurance:ANTHEMPolic BUTCHERDOB: Community y Number: [id number] [facility] [id number] Repository Date:5233-57-37[address] [address]HT: 10/15/2018 Tertiary NOT GIVENUNK [place] Insurance:SELF PAY [facility] Number: Effective Repository Date:2018-10-15 10/12/2018 CHRISTIANO C Primary CHRISTIANO C [place] [id number] [place] Insurance:MEDICARE BUTCHERDOB: [facility], PART A [facility] [id number] Health Center [address]Tds: Number: Repository [id number] () Date:2018-10-12 10/12/2018 Secondary CHRISTIANO C Erica Insurance:ANTHEMPolic BUTCHERDOB: Community y Number: [id number] Hospital [id number] Repository Date:4603-22-65[address], [place] [address]EM: 10/12/2018 Tertiary NOT GIVENUNK [place] Insurance:SELF PAY [facility] Number: Effective Repository Date:2018-10-12 10/09/2018 CHRISTIANO C Primary CHRISTIANO C [place] [id number] [place] Insurance:MEDICARE BUTCHERDOB: [facility], PART A [facility] [id number] Health Center [address]Fgk: Number: Repository [id number] () Date:2018-10-09 10/09/2018 Secondary CHRISTIANO C [place] Insurance:ANTHEMPolic BUTCHERDOB: Community y Number: [id number] Hospital [id number] Repository Date:6165-70-69[address] [address]VG: 10/09/2018 Tertiary NOT GIVENUNK [place] Insurance:SELF PAY [facility] Number: Effective Repository Date:2018-10-09 10/07/2018 CHRISTIANO C Primary CHRISTIANO C [place] [id number] DEER Insurance:MEDICARE BUTCHERDOB: [facility], PART A [facility] [id number] Health Center [address]Gel: Number: Repository [id number] () Date:2018-10-07 10/07/2018 Secondary CHRISTIANO C [place] Insurance:ANTHEMPolic BUTCHERDOB: Community y Number: [id number] Hospital [id number] Repository Date:9887-34-02[address] [address]FO: 10/07/2018 Tertiary NOT GIVENUNK [place] Insurance:SELF PAY [facility] Number: Effective Repository Date:2018-10-07 10/05/2018 CHRISTIANO C Primary CHRISTIANO C [place] [id number] DEER Insurance:MEDICARE BUTCHERDOB: Community [facility] [id number] Health Center [address]Irx: Number: Repository [id number] (HP) Date:2018-10-05 10/05/2018 Secondary CHRISTIANO C [place] Insurance:ANTHEMPolic BUTCHERDOB: Community y Number: [id number] Hospital [id number] Repository Date:4988-84-99KM [address] [place] [address] [place] [address]VC: 10/05/2018 Tertiary NOT GIVENUNK [place] Insurance:SELF PAY [facility] Number: Effective Repository Date:2018-10-05 09/28/2018 CHRISTIANO C Primary CHRISTIANO C [place] [id number] DEER Insurance:MEDICARE BUTCHERDOB: Community [facility] A [facility] [id number] Health Center [address]Nwm: Number: Repository [id number] () Date:2018-09-28 09/28/2018 Secondary CHRISTIANO C [place] Insurance:ANTHEMPolic BUTCHERDOB: Community y Number: [id number] Hospital [id number] Repository Date:9433-46-61[address], [place] [address]ZJ: 09/28/2018 Tertiary NOT GIVENUNK Erica Insurance:SELF PAY [facility] Number: Effective Repository Date:2018-09-28 09/18/2018 CHRISTIANO C Primary CHRISTIANO C [place] [id number] [place] Insurance:MEDICARE BUTCHERDOB: Community [facility] [place] A [facility] [id number] Hospital [place] [address]Tiz: Number: Repository [id number] (HP) Date:2018-09-18 09/18/2018 Secondary CHRISTIANO C [place] Insurance:ANTHEMPolic BUTCHERDOB: Community y Number: [id number] Hospital [id number] Repository Date:2666-71-55QM [address]CS[address] [place] [address]FA: 09/18/2018 Tertiary NOT GIVENUNK [place] Insurance:SELF PAY [facility] Number: Effective Repository Date:2018-09-18 08/27/2018 CHRISTIANO C Primary CHRISTIANO C [place] [id number] [place] Insurance:MEDICARE BUTCHERDOB: Community [facility], PART A [facility] [id number] Health Center [address]Jjd: Number: Repository [id number] () Date:2018-08-27 08/27/2018 Secondary CHRISTIANO C [place] Insurance:ANTHEMPolic BUTCHERDOB: Community y Number: [id number] Hospital [id number] Repository Date:5602-97-12[address]TXCR[address] [place] [address]YO: 08/27/2018 Tertiary NOT GIVENUNK [place] Insurance:SELF PAY [facility] Number: Effective Repository Date:2018-08-27 08/20/2018 CHRISTIANO C Primary CHRISTIANO C [place] [id number] [place] Insurance:MEDICARE BUTCHERDOB: Community [facility], [facility] A [facility] [id number] Health Center [address]Vsr: Number: Repository [id number] () Date:2018-08-20 08/20/2018 Secondary CHRISTIANO C [place] Insurance:ANTHEMPolic BUTCHERDOB: Community y Number: [id number] Hospital [id number] Repository Date:1821-44-19[address], [place] [address]VX: 08/20/2018 Tertiary NOT GIVENUNK [place] Insurance:SELF PAY [facility] Number: Effective Repository Date:2018-08-20 08/07/2018 CHRISTIANO C Primary CHRISTIANO C [place] [id number] [place] Insurance:MEDICARE BUTCHERDOB: Community [facility] [id number] Health Center [address]Aee: Number: Repository [id number] (HP) Date:2018-07-31 08/07/2018 Secondary CHRISTIANO C [place] Insurance:ANTHEMPolic BUTCHERDOB: Community y Number: [id number] Hospital [id number] Repository Date:2583-85-72AK [address] [place] [address] [place] [address]DS: 08/07/2018 Tertiary NOT GIVENUNK [place] Insurance:SELF PAY [facility] Number: Effective Repository Date:2018-08-07 08/06/2018 CHRISTIANO C Primary CHRISTIANO C [place] [id number] [place] Insurance:MEDICARE BUTCHERDOB: [facility], PART A [facility] [id number] Health Center [address]Ntd: Number: Repository [id number] (HP) Date:2018-08-06 08/06/2018 Secondary CHRISTIANO C [place] Insurance:ANTHEMPolic BUTCHERDOB: Community y Number: [id number] Hospital [id number] Repository Date:6937-49-21ET [address] [place] [address] [place] [address]JQ: 08/06/2018 Tertiary NOT GIVENUNK [place] Insurance:SELF PAY [facility] Number: Effective Repository Date:2018-08-06 07/26/2018 CHRISTIANO C Primary CHRISTIANO C [place] [id number] [place] Insurance:MEDICARE BUTCHERDOB: [facility], PART A [facility] [id number] Hospital [place] [address]Bgp: Number: Repository [id number] (HP) Date:2018-07-25 07/26/2018 Secondary CHRISTIANO C [place] Insurance:ANTHEMPolic BUTCHERDOB: Community y Number: [id number] Hospital [id number] Repository Date:8608-42-48TV [address], [place] [address]OF: 07/26/2018 Tertiary NOT GIVENUNK [place] Insurance:SELF PAY [facility] Number: Effective Repository Date:2018-07-25 07/26/2018 CHRISTIANO C Primary CHRISTIANO C [place] [id number] [place] Insurance:MEDICARE BUTCHERDOB: Community [facility], [facility] A [facility] [id number] Health Center [address]Raj: Number: Repository [id number] (HP) Date:2018-07-25 07/26/2018 Secondary CHRISTIANO C [place] Insurance:ANTHEMPolic BUTCHERDOB: Community y Number: [id number] Hospital [id number] Repository Date:6393-37-42AD [address] [place] [address] [place] [address]UF: 07/26/2018 Tertiary NOT GIVENUNK Erica Insurance:SELF PAY [facility] Number: Effective Repository Date:2018-07-26 07/26/2018 CHRISTIANO C Primary CHRISTIANO C [place] [id number] [place] Insurance:MEDICARE BUTCHERDOB: Community [facility] [address], [facility] A [facility] [id number] Health Center [address]Qpb: Number: Repository [id number] (HP) Date:2018-07-25 07/26/2018 Secondary CHRISTIANO C [place] Insurance:ANTHEMPolic BUTCHERDOB: Community y Number: [id number] Hospital [id number] Repository Date:7921-14-31CQ [address] [place] [address]RY: 07/26/2018 Tertiary NOT GIVENUNK [place] Insurance:SELF PAY [facility] Number: Effective Repository Date:2018-07-26 07/26/2018 CHRISTIANO C Primary CHRISTIANO C [place] [id number] [place] Insurance:MEDICARE BUTCHERDOB: Community [facility] [address], [facility] A [facility] [id number] [facility] [place] [address]Pqo: Number: Repository [id number] (HP) Date:2018-07-25 07/26/2018 Secondary CHRISTIANO C [place] Insurance:ANTHEMPolic BUTCHERDOB: Community y Number: [id number] Hospital [id number] Repository Date:5990-23-98QX [address], [place] [address]VY: 07/26/2018 Tertiary NOT GIVENUNK [place] Insurance:SELF PAY [facility] Number: Effective Repository Date:2018-07-26 07/26/2018 CHRISTIANO C Primary CHRISTIANO C [place] [id number] [place] Insurance:MEDICARE BUTCHERDOB: Community [facility], PART A [facility] [id number] Health Center [address]Gyg: Number: Repository [id number] () Date:2018-07-25 07/26/2018 Secondary CHRISTIANO C [place] Insurance:ANTHEMPolic BUTCHERDOB: Community y Number: [id number] Hospital [id number] Repository Date:4527-38-82[address], [place] [address]OQ: 07/26/2018 Tertiary NOT GIVENUNK [place] Insurance:SELF PAY [facility] Number: Effective Repository Date:2018-07-26 07/26/2018 CHRISTIANO C Primary CHRISTIANO C [place] [id number] [place] Insurance:MEDICARE BUTCHERDOB: [facility], PART A [facility] [id number] Health Center [address]Jcp: Number: Repository [id number] () Date:2018-07-25 07/26/2018 Secondary CHRISTIANO C [place] Insurance:ANTHEMPolic BUTCHERDOB: Community y Number: [id number] Hospital [id number] Repository Date:9438-69-33TV [address]Y[place] [address]GQ: 07/26/2018 Tertiary NOT GIVENUNK [place] Insurance:SELF PAY [facility] Number: Effective Repository Date:2018-07-26 07/22/2018 CHRISTIANO C Primary CHRISTIANO C [place] [id number] [place] Insurance:MEDICARE BUTCHERDOB: [facility], PART A [facility] [id number] Health Center [address]Uga: Number: Repository [id number] () Date:2018-04-10 07/22/2018 Secondary CHRISTIANO C [place] Insurance:ANTHEMPolic BUTCHERDOB: Community y Number: [id number] Hospital [id number] Repository Date:9089-13-57WH [address] [place] [address]IS: 07/22/2018 Tertiary NOT GIVENUNK [place] Insurance:SELF PAY [facility] Number: Effective Repository Date:2018-07-22 07/20/2018 CHRISTIANO C Primary CHRISTIANO C [place] [id number] [place] Insurance:MEDICARE BUTCHERDOB: [facility], PART A [facility] [id number] Health Center [address]Wim: Number: Repository [id number] () Date:2018-07-20 07/20/2018 Secondary [place] Insurance:ANTHEMPolic BUTCHERDOB: Community y Number: [id number] [facility] [id number] Repository Date:2195-16-32SJ [address] [place] [address] [place] [address]QC: 07/20/2018 Tertiary NOT GIVENUNK [place] Insurance:SELF PAY [facility] Number: Effective Repository Date:2018-07-20 07/15/2018 CHRISTIANO C Primary CHRISTIANO C [place] [id number] [place] Insurance:MEDICARE BUTCHERDOB: [facility], PART A [facility] [id number] Health [facility] [address]Ytb: Number: Repository [id number] () Date:2018-07-15 07/15/2018 Secondary [place] Insurance:ANTHEMPolic BUTCHERDOB: Community y Number: [id number] Hospital [id number] Repository Date:7323-42-38RK [address], [place] [address]YE: 07/15/2018 Tertiary NOT GIVENUNK [place] Insurance:SELF PAY [facility] Number: Effective Repository Date:2018-07-15 07/06/2018 CHRISTIANO C Primary CHRISTIANO C [place] [id number] [place] Insurance:MEDICARE BUTCHERDOB: Community [facility], PART A [facility] [id number] [place] [address]Cbq: Number: Repository [id number] (HP) Date:2018-07-06 07/06/2018 Secondary [place] Insurance:ANTHEMPolic BUTCHERDOB: Community y Number: [id number] Hospital [id number] Repository Date:1404-75-21JB [address] [place] [address] 10386TL: 07/06/2018 Tertiary NOT GIVENUNK [place] Insurance:SELF PAY [facility] Number: Effective Repository Date:2018-07-06 06/29/2018 CHRISTIANO C Primary CHRISTIANO C [place] [id number] [place] Insurance:MEDICARE BUTCHERDOB: Community [facility], PART A [facility] [id number] Health Center [address]Cll: Number: Repository [id number] () Date:2018-06-29 06/29/2018 Secondary [place] Insurance:ANTHEMPolic BUTCHERDOB: Community y Number: [id number] Hospital [id number] Repository Date:8219-04-44WZ [address] [place] [address] 54010CL: 06/29/2018 Tertiary NOT GIV[place]UNK [place] Insurance:SELF PAY [facility] Number: Effective Repository Date:2018-06-29 06/19/2018 CHRISTIANO C Primary CHRISTIANO C [place] [id number] [place] Insurance:MEDICARE BUTCHERDOB: Community [facility], PART A [facility] [id number] [place] [address]Sod: Number: Repository [id number] (HP) Date:2018-06-19 06/19/2018 Secondary CHRISTIANO C [place] Insurance:ANTHEMPolic BUTCHERDOB: Community y Number: [id number] Hospital [id number] Repository Date:4800-74-80XA [address] [place] [address] 70343SV: 06/19/2018 Tertiary NOT G[place]K [place] Insurance:SELF PAY [facility] Number: Effective Repository Date:2018-06-19 06/11/2018 CHRISTIANO C Primary [place] [id number] [place] Insurance:MEDICARE BUTCHERDOB: Community [facility], PART A [facility] [id number] Health Center [address]Jpl: Number: Repository [id number] () Date:2018-06-11 06/11/2018 Secondary [place] Insurance:ANTHEMPolic BUTCHERDOB: Community y Number: [id number] Hospital [id number] Repository Date:1654-74-88OU [address] [place] [address] 98714DB: 06/11/2018 Tertiary NOT GIVENUNK [place] Insurance:SELF PAY [facility] Number: Effective Repository Date:2018-06-11 06/04/2018 CHRISTIANO C Primary CHRISTIANO C [place] [id number] [place] Insurance:MEDICARE [facility] [id number] Health Center [address]Svg: Number: Repository [id number] () Date:2018-06-04 06/04/2018 Secondary [place] Insurance:ANTHEMPolic BUTCHERDOB: Community y Number: [id number] Hospital [id number] Repository Date:1680-65-74HG [address] [place] [address] 73346HE: 06/04/2018 Tertiary NOT GIVENUNK [place] Insurance:SELF PAY [facility] Number: Effective Repository Date:2018-06-04 05/28/2018 CHRISTIANO C Primary CHRISTIANO C [place]a [id number] [place] Insurance:MEDICARE BUTCHERDOB: [facility] [id number] Health Center [address]Vlg: Number: Repository [id number] () Date:2018-05-28 05/28/2018 Secondary [place] Insurance:ANTHEMPolic BUTCHERDOB: Community y Number: [id number] Hospital [id number] Repository Date:1498-90-50WD [address] [place] [address] 77103YY: 05/28/2018 Tertiary NOT GIVENUNK [place] Insurance:SELF PAY [facility] Number: Effective Repository Date:2018-05-28 05/19/2018 CHRISTIANO C Primary [place] [id number] [place] Insurance:MEDICARE BUTCHERDOB: [facility], PART A [facility] [id number] Health Center [address]Ryv: Number: Repository [id number] () Date:2018-05-19 05/19/2018 Secondary [place] Insurance:ANTHEMPolic BUTCHERDOB: Community y Number: [id number] Hospital [id number] Repository Date:9394-62-15SR [address] [place] [address] 02687TS: 05/19/2018 Tertiary NOT [place]K [place] Insurance:SELF PAY [facility] Number: Effective Repository Date:2018-05-19 04/27/2018 CHRISTIANO C Primary [place] [id number] [place] Insurance:MEDICARE BUTCHERDOB: [facility], PART A [facility] [id number] [place] [address]Thg: Number: Repository [id number] () Date:2018-04-27 04/27/2018 Secondary CHRISTIANO C [place] Insurance:ANTHEMPolic BUTCHERDOB: Community y Number: [id number] Hospital [id number] Repository Date:3860-36-94YJ [address] [place] [address] 95908UK: 04/27/2018 Tertiary NOT GIVENUNK [place] Insurance:SELF PAY [facility] Number: Effective Repository Date:2018-04-27 04/10/2018 CHRISTIANO C Primary [place] [id number] [place] Insurance:MEDICARE BUTCHERDOB: Community [facility], PART A [facility] [id number] [place] [address]Uaf: Number: Repository [id number] (HP) Date:2018-01-09 04/10/2018 Secondary CHRISTIANO C [place] Insurance:ANTHEMPolic BUTCHERDOB: Community y Number: [id number] Hospital [id number] Repository Date:2626-94-18PG [address] [address]OX: 04/10/2018 Tertiary NOT GIVENUNK [place] Insurance:SELF PAY [facility] Number: Effective Repository Date:2018-04-10 04/08/2018 CHRISTIANO C Primary CHRISTIANO C [place] [id number] [place] Insurance:MEDICARE BUTCHERDOB: Community [facility], PART A [facility] [id number] Health Center [address]Ano: Number: Repository [id number] () Date:2018-04-08 04/08/2018 Secondary [place] Insurance:ANTHEMPolic BUTCHERDOB: Community y Number: [id number] Hospital [id number] Repository Date:8702-91-14QV [address] [place] [address] 17348IT: 04/08/2018 Tertiary NOT GIVENUNK [place] Insurance:SELF PAY [facility] Number: Effective Repository Date:2018-04-08 03/24/2018 CHRISTIANO C Primary CHRISTIANO C [place] [id number] [place] Insurance:MEDICARE BUTCHERDOB: Community [facility], PART A [facility] [id number] [place] [address]Run: Number: Repository [id number] (HP) Date:2018-03-24 03/24/2018 Secondary [place] Insurance:ANTHEMPolic BUTCHERDOB: Community y Number: [id number] Hospital [id number] Repository Date:4656-85-21AL [address] [place] [address] 02454OG: 03/24/2018 Tertiary NOT GIVENUNK [place] Insurance:SELF PAY [facility] Number: Effective Repository Date:2018-03-24 03/17/2018 CHRISTIANO C Primary [place] [id number] [place] Insurance:MEDICARE BUTCHERDOB: [facility] [id number] Health Center [address]Kks: Number: Repository [id number] () Date:2018-03-17 03/17/2018 Secondary [place]ST[place]O C [place] Insurance:ANTHEMPolic BUTCHERDOB: Community y Number: [id number] Hospital [id number] Repository Date:1851-77-46KN [address] [place] [address] 35954LC: 03/17/2018 Tertiary NOT GIVENUNK [place] Insurance:SELF PAY [facility] Number: Effective Repository Date:2018-03-17 03/13/2018 CHRISTIANO C Primary [place]RISTIANO C [place] [id number] [place] Insurance:MEDICARE [facility] [id number] Health Center [address]Thx: Number: Repository [id number] () Date:2018-02-13 03/13/2018 Secondary [place] Insurance:ANTHEMPolic BUTCHERDOB: Community y Number: [id number] Hospital [id number] Repository Date:7779-64-62OA [address]JBTNP, [place] [address]WK: 03/13/2018 Tertiary NOT G[place]K [place] Insurance:SELF PAY [facility] Number: Effective Repository Date:2018-02-13 03/06/2018 CHRISTIANO C Primary [place] [id number] [place] Insurance:MEDICARE BUTCHERDOB: [facility], PART A [facility] [id number] Health Center [address]Igl: Number: Repository [id number] () Date:2018-03-06 03/06/2018 Secondary [place] Insurance:ANTHEMPolic BUTCHERDOB: Community y Number: [id number] [facility] [id number] Repository Date:3449-04-17CA [address] [place] [address] 58156QC: 03/06/2018 Tertiary NOT GIVENUNK [place] Insurance:SELF PAY [facility] Number: Effective Repository Date:2018-03-06 03/03/2018 CHRISTIANO C Primary CHRIST[place]O C [place] [id number] [place] Insurance:MEDICARE BUTCHERDOB: [facility], PART A [facility] [id number] Health Center [address]Smx: Number: Repository [id number] () Date:2018-03-03 03/03/2018 Secondary [place] Insurance:ANTHEMPolic BUTCHERDOB: Community y Number: [id number] Repository Date:7156-27-08OP [address] [place] [address] 42827DF: 03/03/2018 Tertiary NOT [place] Insurance:SELF PAY [facility] Number: Effective Repository Date:2018-03-03 02/17/2018 CHRISTIANO C Primary CHRISTIANO C [place] [id number] [place] Insurance:MEDICARE BUTCHERDOB: [facility], PART A [facility] [id number] Health Center [address]Hkx: Number: Repository [id number] () Date:2018-02-17 02/17/2018 Secondary [place]ST[place] C [place] Insurance:ANTHEMPolic BUTCHERDOB: Community y Number: [id number] Hospital [id number] Repository Date:6932-77-27OF [address] [place] [address] 61318TC: 02/17/2018 Tertiary NOT GIVENUNK [place] Insurance:SELF PAY [facility] Number: Effective Repository Date:2018-02-17 02/13/2018 CHRISTIANO C Primary [place]RISTIANO C [place] [id number] [place] Insurance:MEDICARE BUTCHERDOB: [facility] [id number] Health Center [address]Xuw: Number: Repository [id number] (HP) Date:2018-01-23 02/13/2018 Secondary [place]RISTIANO C [place] Insurance:ANTHEMPolic BUTCHERDOB: Community y Number: [id number] Hospital [id number] Repository Date:1524-14-18KS [address] [place] [address] 38301GO: 02/13/2018 Tertiary NOT GIVENUNK [place] Insurance:SELF PAY [facility] Number: Effective Repository Date:2018-01-27 02/10/2018 CHRISTIANO C Primary [place]ST[place] C [place] [id number] [place] Insurance:MEDICARE BUTCHERDOB: [facility] [id number] Health Center [address]Ukt: Number: Repository [id number] (HP) Date:2018-02-10 02/10/2018 Secondary [place] C [place] Insurance:ANTHEMPolic BUTCHERDOB: Community y Number: [id number] Hospital [id number] Repository Date:0751-17-68NL [address] [place] [address] 935[address]YJ: 02/10/2018 Tertiary NOT GIVENUNK [place] Insurance:SELF PAY [facility] Number: Effective Repository Date:2018-02-10 02/09/2018 CHRISTIANO C Primary CHRISTIANO C [place] [id number] [place] Insurance:MEDICARE BUTCHERDOB: Community [facility], PART A [facility] [id number] Hospital [place] [address]Iko: Number: Repository [id number] (HP) Date:2018-02-09 02/09/2018 Secondary [place]RIST[place]O C [place] Insurance:ANTHEMPolic BUTCHERDOB: Community y Number: [id number] Hospital [id number] Repository Date:0081-27-63SH [address] [place] [address] 27272SU: 02/09/2018 Tertiary NOT GIVENUNK [place] Insurance:SELF PAY [facility] Number: Effective Repository Date:2018-02-09 02/06/2018 CHRISTIANO C Primary [place] [id number] [place] Insurance:MEDICARE BUTCHERDOB: [facility], PART A [facility] [id number] Health Center [address]Stj: Number: Repository [id number] () Date:2018-02-06 02/06/2018 Secondary [place] Insurance:ANTHEMPolic BUTCHERDOB: Community y Number: [id number] Hospital [id number] Repository Date:0020-32-24AD [address] [place] [address] 687[address]PX: 02/06/2018 Tertiary NOT GIVENUNK [place] Insurance:SELF PAY [facility] Number: Effective Repository Date:2018-02-06 01/25/2018 CHRISTIANO C Primary [place] [id number] [place] Insurance:MEDICARE BUTCHERDOB: [facility], PART A [facility] [id number] Health Center [address]Oad: Number: Repository [id number] () Date:2018-01-25 01/25/2018 Secondary [place] Insurance:ANTHEMPolic BUTCHERDOB: Community y Number: [id number] Hospital [id number] Repository Date:5808-84-94KU [address] [place] [address] 05834YP: 01/25/2018 Tertiary NOT G[place]K [place] Insurance:SELF PAY [facility] Number: Effective Repository Date:2018-01-25 01/25/2018 CHRISTIANO C Primary CHRISTIANO C [place] [id number] [place] Insurance:MEDICARE BUTCHERDOB: [facility], PART A [facility] [id number] Health Center [address]Jyn: Number: Repository [id number] () Date:2018-01-25 01/25/2018 Secondary [place] Insurance:ANTHEMPolic BUTCHERDOB: Community y Number: [id number] Repository Date:2882-15-77LI [address] [place] [address] 10050VV: 01/25/2018 Tertiary NOT GIVENUNK [place] Insurance:SELF PAY [facility] Number: Effective Repository Date:2018-01-25 01/25/2018 CHRISTIANO C Primary [place] [id number] [place] Insurance:MEDICARE BUTCHERDOB: [facility], PART A [facility] [id number] Health Center [address]Xhq: Number: Repository [id number] () Date:2018-01-25 01/25/2018 Secondary [place]RISTIANO C [place] Insurance:ANTHEMPolic BUTCHERDOB: Community y Number: [id number] Repository Date:7794-25-62HM [address]QTOYQA, [place] [address]XY: 01/25/2018 Tertiary NOT [place]K [place] Insurance:SELF PAY [facility] Number: Effective Repository Date:2018-01-25 01/23/2018 CHRISTIANO C Primary [place] [id number] [place] Insurance:MEDICARE [facility]ERD[facility] [id number] Number: Repository [address]Aqm: 330 [id number] [phone] () Date:2017-10-25 01/23/2018 Secondary [place] Insurance:ANTHEMPolic BUTCHERDOB: Community y Number: [id number] Hospital [id number] Repository Date:1181-17-80AZ [address] [place] [address] 54[address]YV: 01/23/2018 Tertiary NOT GIVENUNK [place] Insurance:SELF PAY [facility] Number: Effective Repository Date:2017-12-12 01/22/2018 CHRISTIANO C Primary CHRISTIANO C [place] [id number] [place] Insurance:MEDICARE BUTCHERDOB: [facility] [id number] Health Center [address]Ykp: Number: Repository [id number] (HP) Date:2018-01-22 01/22/2018 Secondary CHRISTIANO C [place] Insurance:ANTHEMPolic BUTCHERDOB: Community y Number: [id number] Hospital [id number] Repository Date:5656-24-22GV [address] [place] [address] 30231UG: 01/22/2018 Tertiary [place]K [place] Insurance:SELF PAY [facility] Number: Effective Repository Date:2018-01-22 01/15/2018 CHRISTIANO C Primary CHRISTIANO C [place] [id number] [place] Insurance:MEDICARE BUTCHERDOB: Community [email or web address], PART A [facility] [id number] Health Center [address]Elf: Number: Repository [id number] () Date:2018-01-15 01/15/2018 Secondary [place] Insurance:ANTHEMPolic BUTCHERDOB: Community y Number: [id number] Hospital [id number] Repository Date:4079-77-52LR [address] [place] [address] 03336DR: 01/15/2018 Tertiary NOT GIVENUNK [place] Insurance:SELF PAY [facility] Number: Effective Repository Date:2018-01-15 01/09/2018 CHRISTIANO C Primary [place]RISTIANO [place] [id number] [place] Insurance:MEDICARE BUTCHERDOB: Community [facility], PART A [facility] [id number] Health Center [address]Due: Number: Repository [id number] () Date:2017-10-15 01/09/2018 Secondary [place] Insurance:ANTHEMPolic BUTCHERDOB: Community y Number: [id number] Hospital [id number] Repository Date:4970-75-65OX [address], [place] [address]AR: 01/09/2018 Tertiary NOT G[place]K [place] Insurance:SELF PAY [facility] Number: Effective Repository Date:2018-01-09 12/30/2017 CHRISTIANO C Primary [place]ST[place]O [place] [id number] [place] Insurance:MEDICARE BUTCHERDOB: [facility], PART A [facility] [id number] Health Center [address]Dzb: Number: Repository [id number] () Date:2017-12-30 12/30/2017 Secondary [place]ST[place] Insurance:ANTHEMPolic BUTCHERDOB: Community y Number: [id number] Repository Date:0836-49-04QT [address]JQ[address] [place] [address]AW: 12/30/2017 Tertiary NOT GIVENUNK [place]a Insurance:SELF PAY [facility] Number: Effective Repository Date:2017-12-30 12/29/2017 CHRISTIANO C Primary [place]STIANO C [place] [id number] [place] Insurance:ANTHEMPolic BUTCHERDOB: [facility], y Number: [id number] Health Center [address]Aqj: [id number] Repository Date:2419-74-35WG [address]YM, [place] [address]PV: 12/29/2017 Secondary CHRISTIANO C Erica Insurance:MEDICARE BUTCHERDOB: Community PART A [facility] [id number] Hospital Number: Repository [id number] Date:2017-09-05 12/29/2017 Tertiary NOT GIVENUNK [place]a Insurance:SELF PAY [facility] Number: Effective Repository Date:2017-09-05 12/16/2017 CHRISTIANO C Primary [place]RISTIANO C [place] [id number] [place] Insurance:MEDICARE BUTCHERDOB: [facility], PART A [facility] [id number] Health Center [address]Etf: Number: Repository [id number] () Date:2017-12-16 12/16/2017 Secondary [place] Insurance:ANTHEMPolic BUTCHERDOB: Community y Number: [id number] Hospital [id number] Repository Date:5075-06-55ST [address] [place] [address] 37297BY: 12/16/2017 Tertiary NOT G[place]K [place] Insurance:SELF PAY [facility] Number: Effective Repository Date:2017-12-16 12/12/2017 CHRISTIANO C Primary [place]RISTIANO C [place] [id number] [place] Insurance:MEDICARE BUTCHERDOB: [facility], PART A [facility] [id number] Health Center [address]Lha: Number: Repository [id number] () Date:2017-12-11 12/12/2017 Secondary [place]ST[place]O C [place] Insurance:ANTHEMPolic BUTCHERDOB: Community y Number: [id number] Hospital [id number] Repository Date:1103-78-51[address]WPVT, [place] [address]DO: 12/12/2017 Tertiary NOT G[place]UNK [place] Insurance:SELF PAY [facility] Number: Effective Repository Date:2017-12-12 11/25/2017 CHRISTIANO C Primary CHRISTIANO C [place] [id number] [place] Insurance:MEDICARE BUTCHERDOB: [facility], PART A [facility] [id number] Health Center [address]Dpm: Number: Repository [id number] () Date:2017-11-25 11/25/2017 Secondary CHRISTIANO C [place] Insurance:ANTHEMPolic BUTCHERDOB: Community y Number: [id number] Hospital [id number] Repository Date:7198-92-62WF [address]WNEEF, [place] [address]MM: 11/25/2017 Tertiary NOT GIVENUNK [place] Insurance:SELF PAY [facility] Number: Effective Repository Date:2017-11-25 11/14/2017 CHRISTIANO C Primary [place]STIANO C [place] [id number] [place] Insurance:MEDICARE BUTCHERDOB: [facility], PART A [facility] [id number] Health Center [address]Ybh: Number: Repository [id number] (HP) Date:2017-11-14 11/14/2017 Secondary CHRISTIANO C Erica Insurance:ANTHEMPolic BUTCHERDOB: Community y Number: [id number] Hospital [id number] Repository Date:1501-73-35[address]JQRWZI, [place] [address]XT: 11/14/2017 Tertiary NOT [place]K [place] Insurance:SELF PAY [facility] Number: Effective Repository Date:2017-11-14 11/11/2017 CHRISTIANO C Primary CHRISTIANO C Erica [id number] [place] Insurance:MEDICARE BUTCHERDOB: [facility], PART A [facility] [id number] Health Center [address]Avw: Number: Repository [id number] (HP) Date:2017-11-11 11/11/2017 Secondary CHRISTIANO C Erica Insurance:ANTHEMPolic BUTCHERDOB: Community y Number: [id number] Hospital [id number] Repository Date:7200-19-89OQ [address]EBKCTC, [place] [address]EY: 11/11/2017 Tertiary NOT GIVENUNK Erica Insurance:SELF PAY [facility] Number: Effective Repository Date:2017-11-11 11/07/2017 CHRISTIANO C Primary CHRISTIANO C Erica [id number] [place] Insurance:MEDICARE [facility] [id number] Health Center [address]Gdu: Number: Repository [id number] (HP) Date:2017-10-28 11/07/2017 Secondary [place]ST[place] Insurance:ANTHEMPolic BUTCHERDOB: Community y Number: [id number] Hospital [id number] Repository Date:3454-22-03CK [address]NNJPCGV [place] [address]UI: 11/07/2017 Tertiary NOT GIVENUNK Erica Insurance:SELF PAY [facility] Number: Effective Repository Date:2017-10-28 10/31/2017 CHRISTIANO C Primary CHRISTIANO C Erica [id number] DEER Insurance:MEDICARE BUTCHERDOB: [facility], PART A [id number] [id number]: Number: Repository [id number] (HP) Date:2017-10-28 10/31/2017 Secondary CHRISTIANO C [place] Insurance:ANTHEMPolic BUTCHERDOB: Community y Number: [id number] [id number] Repository Date:7054-27-20SH [id number] [place] [id number]: 10/31/2017 Tertiary NOT GIVENUNK Erica Insurance:SELF PAY [facility] Number: Effective Repository Date:2017-10-28 10/28/2017 CHRISTIANO C Primary CHRISTIANO C [place] [id number] [place]ER Insurance:MEDICARE BUTCHERDOB: [facility], PART A [id number] [id number]: Number: Repository [id number] (HP) Date:1998-12-21 10/28/2017 Secondary CHRISTIANO C [place] Insurance:ANTHEMPolic BUTCHERDOB: Community y Number: [id number] [id number] Repository Date:[id number], [place] [address]CM: 10/28/2017 Tertiary NOT GIVENUNK Erica Insurance:SELF PAY [facility] Number: Effective Repository Date:2017-08-20 10/28/2017 CHRISTIANO C Primary CHRISTIANO C Erica [id number] [place] Insurance:MEDICARE BUTCHERDOB: [facility], PART A [facility] [id number] [address]Onw: Number: Repository [id number] (HP) Date:1998-12-21 10/28/2017 Secondary CHRISTIANO C [place] Insurance:ANTHEMPolic BUTCHERDOB: Community y Number: [id number] [facility] [id number] Repository Date:[id number] [address] [place] [address]OH: 10/28/2017 Tertiary NOT GIVENUNK Erica Insurance:SELF PAY [facility] Number: Effective Repository Date:2017-10-28 10/27/2017 CHRISTIANO C Primary CHRISTIANO C Erica [id number] [place] Insurance:MEDICARE BUTCHERDOB: [facility], PART A [facility] [id number] [address]Gfc: Number: Repository [id number] (HP) Date:2017-10-27 10/27/2017 Secondary CHRISTIANO C [place] Insurance:ANTHEMPolic BUTCHERDOB: Community y Number: [id number] [facility] [id number] Repository Date:2133-01-65[address], [place] [address]EX: 10/27/2017 Tertiary NOT GIVENUNK [place] Insurance:SELF PAY [facility] Number: Effective Repository Date:2017-10-27 10/07/2017 CHRISTIANO C Primary CHRISTIANO C Erica [id number] [place] Insurance:MEDICARE BUTCHERDOB: [facility], PART A [facility] [id number] [address]Ovm: Number: Repository [id number] (HP) Date:2017-08-28 10/07/2017 Secondary CHRISTIANO C [place] Insurance:ANTHEMPolic BUTCHERDOB: Community y Number: [id number] [facility] [id number] Repository Date:9922-19-92[address], [place] [address]SI: 10/07/2017 Tertiary NOT GIVENUNK [place] Insurance:SELF PAY [facility] Number: Effective Repository Date:2017-08-28
== END ==
PROVIDERS: Family Provider Family Medicine; PCP Family Medicine; Visit Provider Internal Medicine Cardiovascular Disease
DX: I48.92 Unspecified atrial flutter (principal); I48.0 Paroxysmal atrial fibrillation; Z79.01 Long term (current) use of anticoagulants
CPT/HCPCS: 36415; 85610

== ENCOUNTER → 2018-10-09 11:34 | Outpatient (CLI) | payer MEDICARE, BC, SELFPAY ==
[2018-08-07 13:45] VITALS: BMI 28.1
[2018-10-09 12:45] LABS: International Normalized Ratio 4.9
--- OUTSIDE RECORDS SUMMARY | 2018-12-13 23:34 | XMS RPT_ITS ---
:1940 Author Organization OHIP Support Name Relationship Address Phone R Unavailable Unavailable Unavailable LADONNA GELLER Unavailable [address] + [place] [address] R Unavailable Unavailable Unavailable LADONNA GELLER Unavailable [address] + [place] [address] R Unavailable Unavailable Unavailable LADONNA GELLER Unavailable [address] + [place] [address] R Unavailable Unavailable Unavailable LADONNA GELLER Unavailable [address] + [place] [address] R Unavailable Unavailable Unavailable LADONNA GELLER Unavailable [address] + [place] [address] R Unavailable Unavailable Unavailable LADONNA GELLER Unavailable [address] + [place] [address] R Unavailable Unavailable Unavailable LADONNA GELLER Unavailable [address] + [place] [address] R Unavailable Unavailable Unavailable LADONNA GELLER Unavailable [address] + [place] [address] R Unavailable Unavailable Unavailable LADONNA GELLER Unavailable [address] + [place] [address] R Unavailable Unavailable Unavailable LADONNA GELLER Unavailable [address] + [place] [address] R Unavailable Unavailable Unavailable LADONNA GELLER Unavailable [address] + [place] [address] R Unavailable Unavailable Unavailable LADONNA GELLER Unavailable [address] + [place] [address] R Unavailable Unavailable Unavailable LADONNA GELLER Unavailable [address] + [place] [address] R Unavailable Unavailable Unavailable LADONNA GELLER Unavailable [address] + [place] [address] R Unavailable Unavailable Unavailable LADONNA GELLER Unavailable [address] + [place] [address] R Unavailable Unavailable Unavailable LADONNA GELLER Unavailable [address] + [place] [address] R Unavailable Unavailable Unavailable LDAONNA GELLER Unavailable [address] + [place] [address] R Unavailable Unavailable Unavailable LADONNA GELLER Unavailable [address] + [place] [address] R Unavailable Unavailable Unavailable LADONNA GELLER Unavailable [address] + [place] [address] R Unavailable Unavailable Unavailable LADONNA GELLER Unavailable [address] + [place] [address] R Unavailable Unavailable Unavailable LADONNA GELLER Unavailable [address] + [place] [address] R Unavailable Unavailable Unavailable LADONNA GELLER Unavailable [address] + [place] [address] R Unavailable Unavailable Unavailable LADONNA GELLER Unavailable [address] + [place] [address] R Unavailable Unavailable Unavailable LADONNA GELLER Unavailable [address] + [place] [address] R Unavailable Unavailable Unavailable LADONNA GELLER Unavailable [address] + [place] [address] R Unavailable Unavailable Unavailable LADONNA GELLER Unavailable [address] + [place] [address] R Unavailable Unavailable Unavailable LADONNA GELLER Unavailable [address] + [place] [address] R Unavailable Unavailable Unavailable LADONNA GELLER Unavailable [address] + [place] [address] R Unavailable Unavailable Unavailable LADONNA GELLER Unavailable [address] + [place] [address] R Unavailable Unavailable Unavailable LADONNA GELLER Unavailable [address] + [place] [address] R Unavailable Unavailable Unavailable LADONNA GELLER Unavailable [address] + [place] [address] R Unavailable Unavailable Unavailable LADONNA GELLER Unavailable [address] + [place] [address] R Unavailable Unavailable Unavailable LADONNA GELLER Unavailable [address] + [place] [address] R Unavailable Unavailable Unavailable LADONNA GELLER Unavailable [address] + [place] [address] R Unavailable Unavailable Unavailable LADONNA GELLER Unavailable [address] + [place] [address] R Unavailable Unavailable Unavailable LADONNA GELLER Unavailable [address] + [place] [address] R Unavailable Unavailable Unavailable LADONNA GELLER Unavailable [address] + [place] [address] R Unavailable Unavailable Unavailable LADONNA GELLER Unavailable [address] + [place] [address] R Unavailable Unavailable Unavailable LADONNA GELLER Unavailable [address] + [place] [address] R Unavailable Unavailable Unavailable LADONNA GELLER Unavailable [address] + [place] [address] R Unavailable Unavailable Unavailable LADONNA GELLER Unavailable [address] + [place] [address] R Unavailable Unavailable Unavailable LADONNA GELLER Unavailable [address] + [place] [address] R Unavailable Unavailable Unavailable LADONNA GELLER Unavailable [address] + [place] [address] R Unavailable Unavailable Unavailable LADONNA GELLER Unavailable . + [place] [address] R Unavailable Unavailable Unavailable LADONNA GELLER Unavailable . + [place] [address] R Unavailable Unavailable Unavailable LADONNA GELLER Unavailable . + [place] [address] R Unavailable Unavailable Unavailable YIMI LADONNA Unavailable . + [place] [address] R Unavailable Unavailable Unavailable YIMI, LADONNA Unavailable . + [place] [address] R Unavailable Unavailable Unavailable YIMI, LADONNA Unavailable NA + [place], [place] R Unavailable Unavailable Unavailable YIMI, LADONNA Unavailable . + [place] [address] R Unavailable Unavailable Unavailable YIMI, LADONNA Unavailable . + [place] [address] R Unavailable Unavailable Unavailable YIMI, LADONNA Unavailable [...] Name Role Phone Carlos Mcallister Attending Unavailable [facility] Unavailable Carlos Mcallister Attending Unavailable [facility] Unavailable Carlos Mcallister Attending Unavailable [facility] Unavailable Carlos Mcallister Attending Unavailable [facility] Unavailable Carlos Mcallister Attending Unavailable [facility] Unavailable Carlos Mcallister Attending Unavailable [facility] Unavailable Carlos Mcallister Attending Unavailable [facility] Unavailable Carlos Mcallister Attending Unavailable [facility] Unavailable Carly Phillip Attending Unavailable Carlos Mcallister Attending Unavailable Ranney, Christopher Primary Care Unavailable MoodispaCarlos huerta Attending Unavailable [facility] Unavailable Carly Phillip Attending Unavailable Devin Gamboa Attending Unavailable [facility] Referring Unavailable MoodispaCarlos huerta Attending Unavailable [facility] Primary Care Unavailable Moodispabradley, Carlos Attending Unavailable [facility] Primary Care Unavailable Moodissonia, Carlos Attending Unavailable [facility] Primary Care Unavailable Moodissonia, Carlos Attending Unavailable [facility] Primary Care Unavailable Angelica Kim Attending Unavailable [facility] [place] Referring Unavailable Richie Rice Admitting Unavailable KitThang fernandez Attending Unavailable [facility] Primary Care Unavailable Otilio Mitchell Consulting Unavailable Thang Ramirez Consulting Unavailable MoodispaCarlos huerta Attending Unavailable [facility] Primary Care Unavailable Moodissonia, Carlos Attending Unavailable [facility] Primary Care Unavailable Moodyamel, Carlos Attending Unavailable [facility] Primary Care Unavailable Moodyamel, Carlos Attending Unavailable [facility] Primary Care Unavailable Carly Phillip Attending Unavailable Ashelfah, Ghasem Admitting Unavailable Thang Ramirez Attending Unavailable [facility] Unavailable Thang Ramirez Consulting Unavailable Ashelfah, Ghasem Admitting Unavailable Ashelfah, Ghasem Attending Unavailable [facility] Primary Care Unavailable Ashelfah, Ghasem Consulting Unavailable [facility] Primary Care Unavailable Damienelfgonsalo, Ghasem Admitting Unavailable Thang Ramirez Attending Unavailable Devin Gamboa Attending Unavailable [facility] Referring Unavailable [facility] Primary Care Unavailable MoodCarlos montesinos Attending Unavailable [facility] Primary Care Unavailable Angelica Kim Attending Unavailable [place] Referring Unavailable My Matthews Attending Unavailable [facility] [place] Referring Unavailable [facility] Primary Care Unavailable [facility], Michael Attending Unavailable [facility] Primary Care Unavailable [facility] Attending Unavailable [facility] Primary Care Unavailable Ciara Arambula Attending Unavailable IsckarusNinfaour Referring Unavailable [facility] Primary Care Unavailable IsckarusCiara Attending Unavailable Isckarus, Mansour Referring Unavailable [facility] Primary Care Unavailable IsckarusCiara Attending Unavailable Isckarus, Ciara Referring Unavailable [facility] Care Unavailable Ciara Arambula Consulting Unavailable MoodisCarlos scott Attending Unavailable [facility] Care Unavailable Moodispaw, Carlos Attending Unavailable [facility], [place] Referring Unavailable IsckarusCiara Attending Unavailable [facility] Care Unavailable Iscabbe, Ciara Referring Unavailable Moodispabradley, Carlos Attending Unavailable [facility] Care Unavailable Moodissonia, Carlos Attending Unavailable [facility] Care Unavailable Angelica Kim Attending Unavailable [facility], [place] Referring Unavailable [facility] Care Unavailable Moodissonia, Carlos Attending Unavailable [facility] Care Unavailable Moodissonia, Carlos Attending Unavailable [facility] Care Unavailable Otilio Mitchell Attending Unavailable AgyeponRichie marie Referring Unavailable My Matthews Attending Unavailable Moodispabradley, Carlos Attending Unavailable [facility] Care Unavailable Agyepong, Richie Admitting Unavailable Moodispabradley, Carlos Attending Unavailable [facility] Care Unavailable Stephen, Otilio Consulting Unavailable KittoeThang Consulting Unavailable Agyepong, Richie Admitting Unavailable KitThang fernandez Attending Unavailable [facility] Care Unavailable Stephen, Otilio Consulting Unavailable KitThang fernandez Consulting Unavailable Agyepong, Richie Admitting Unavailable Agyepong, Richie Attending Unavailable [facility] Care Unavailable Ashelfgonsalo Ghasem Consulting Unavailable [facility] Care Unavailable Agyepong, Richie Admitting Unavailable Stephen, Otilio Consulting Unavailable KitThang fernandez Attending Unavailable MoodispaCarlos huerta Attending Unavailable [facility] Care Unavailable Moodissonia, Carlos Attending Unavailable [facility] Care Unavailable MoodisCarlos scott Attending Unavailable [facility] Care Unavailable [facility] Attending Unavailable [place]iss[place], Carlos Attending Unavailable [facility] Care Unavailable Moodyamel, Carlos Attending Unavailable [facility] Care Unavailable Moodyamel, Carlos Attending Unavailable [facility] Care Unavailable Angelica Kim Attending Unavailable [facility] Referring Unavailable [facility] Care Unavailable Devin Gamboa Attending Unavailable Michael Muse Referring Unavailable Michael Muse Primary Care Unavailable PROBLEMS PROBLEMS DATE TYPE CONDITION / CODE ATTENDING STATUS SOURCE 10/15/2018 Unknown I48.92 - Unspecified Carlos Mcallister Active [place] atrial flutter / Community I48.92(ICD-10) Hospital Repository 10/15/2018 Unknown I48.0 - Paroxysmal MoodisCarlos scott Active [place] atrial fibrillation Community / I48.0(ICD-10) Hospital Repository 10/15/2018 Unknown Z79.01 - group home MoodisCarlos scott Active [place] (current) use of Community anticoagulants / Hospital Z79.01(ICD-10) Repository 08/07/2018 Unknown N18.9 - Chronic My Matthews Active [place] kidney disease, [facility] unspecified / Hospital N18.9(ICD-10) Repository 08/07/2018 Unknown D63.1 - Anemia in My Matthews Active [place] chronic kidney Community disease / Hospital D63.1(ICD-10) Repository 08/06/2018 Unknown I21.3 - ST elevation MoodisCarlos scott Active [place] (STEMI) myocardial Community infarction of Hospital unspecified site / Repository I21.3(ICD-10) 08/06/2018 Unknown I48.1 - Persistent MoodisCarlos scott Active [place] atrial fibrillation Community / I48.1(ICD-10) Hospital Repository 08/11/2018 Unknown I42.0 - Dilated Stephen, Otilio Active [place] cardiomyopathy / Community I42.0(ICD-10) Hospital Repository 08/11/2018 Unknown Z95.810 - Presence Stephen, Otilio Active [place] of automatic Community (implantable) Hospital cardiac Repository defibrillator / Z95.810(ICD-10) 08/11/2018 Unknown R55 - Syncope and Stephen, Otilio Active [place] collapse / Community R55(ICD-10) Hospital Repository 08/11/2018 Unknown I50.43 - Acute on Stephen, Wacissa Active [place] chronic combined [facility] systolic Hospital (congestive) and Repository diastolic (congestive) heart failure / I50.43(ICD-10) 02/13/2018 Unknown I50.22 - Chronic Gamboa, Active [place] systolic Devin Blanco [facility] (congestive) heart Hospital failure / Repository I50.22(ICD-10) 11/21/2017 Unknown 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, 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 / [facility] D47.2(ICD-10) Hospital Repository 11/21/2017 Unknown Z01.818 - Encounter Isckarus, Active [place] for other [facility] preprocedural Hospital examination / Repository Z01.818(ICD-10) 11/21/2017 Unknown D69.6 - Isckarus, Active [place] Thrombocytopenia, [facility] unspecified / Hospital D69.6(ICD-10) Repository 11/21/2017 Unknown D61.818 - Other Isckarus, Active [place] pancytopenia / [facility] D61.818(ICD-10) Hospital Repository 11/21/2017 Unknown D64.9 - Anemia, Isckarus, Active [place] unspecified / [facility] D64.9(ICD-10) Hospital Repository 11/18/2017 Unknown I50.82 - Angelica Kim Active [place] Biventricular heart Community failure / Hospital I50.82(ICD-10) Repository 11/18/2017 Unknown I47.2 - Ventricular JulioAngelica newell Active [place] tachycardia / Community I47.2(ICD-10) Hospital Repository PROCEDURES PROCEDURES No Procedure Records FoundRESULTS RESULTS PROTIME W/INR Collected: 10/15/2018 Status: F Source: [place] F[place]ER[place] 10:29 AM [facility] REPOSITORY TYPE CODE TESTS RESULT OUT OF REFERENCE UNITS RANGE LAB L9200.1001 11.9-14.4 SEC High PROTIME ISTAT 23.7 Result Comment: Reference Range 11.9 - 14.4 LAB L9200.2000 Normal INR ISTAT 2.00 Result Comment: Critical Value > 3.5 Performed By: #### L9200.0000 #### [facility] Laboratory Point of Care [address] [place], [place] [address] PROTHROMBIN TIME W/INR Collected: 10/12/2018 Status: F Source: [place] 10:45 AM [facility] REPOSITORY TYPE CODE TESTS RESULT OUT OF RANGE REFERENCE UNITS LAB L300.4150 11.7-14.9 SECONDS High PROTIME 33.2 LAB L300.4200 Normal INR 3.2 Performed By: #### L300.3900 #### [facility] Laboratory [address] [place], [address] PROTHROMBIN TIME W/INR Collected: 10/09/2018 Status: F Source: [place] 12:00 PM [facility] REPOSITORY TYPE CODE TESTS RESULT OUT OF REFERENCE UNITS RANGE LAB L300.4150 11.7-14.9 SECONDS High PROTIME 46.0 LAB L300.4200 High alert INR 4.9 Result Comment: CRITICAL VALUE VERIFIED. CALLED TO ALIRIO AT 'S OFFICE. 10/09/18 1244 Steevn Chavez. RESULTS READ BACK BY SAME. Performed By: #### L300.3900 #### [facility] Laboratory [address] [place], [address] PROTHROMBIN TIME W/INR Collected: 10/07/2018 Status: F Source: [place] 11:00 AM [facility] REPOSITORY Order Comment: Comments: STANDING ORDER-HOMEBOUND Comments: STANDING ORDER-HOMEBOUND TYPE CODE TESTS RESULT OUT OF REFERENCE UNITS RANGE LAB L300.4150 11.7-14.9 SECONDS High PROTIME 42.9 LAB L300.4200 High alert INR 4.5 Result Comment: CRITICAL VALUE VERIFIED. CALLED TO RENETTA AT 'S OFFICE. 10/07/18 1137 Steven Chavez. RESULTS READ BACK BY SAME. Performed By: #### L300.3900 #### [facility] Laboratory [address] [place], [address] PROTHROMBIN TIME W/INR Collected: 10/05/2018 Status: F Source: [place] 10:45 AM [facility] REPOSITORY Order Comment: Result obtained is for [...] RITA . Performed By: #### L300.3900 #### [facility] Laboratory [address] [place], [address] PROTIME W/INR Collected: 10/05/2018 Status: F Source: [place] FINGERSTICK 10:35 AM [facility] REPOSITORY Order Comment: This critical result is preliminary and not confirmed. Venous sample sent to main laboratory for confirmation. A call with confirmation result will follow. See specimen #: [id number] for confirmation result. SPOKE WITH MINI AT [facility] 10/05/18 1117 RHICKS. TYPE CODE TESTS RESULT OUT OF REFERENCE UNITS RANGE LAB L9200.1001 11.9-14.4 SEC High PROTIME ISTAT 58.1 Result Comment: Reference Range 11.9 - 14.4 LAB L9200.2000 High alert INR ISTAT 5.20 Result Comment: Critical Value > 3.5 Performed By: #### L9200.0000 #### [facility] Laboratory Point of Care [address] [place] [address] PROTIME W/INR Collected: 09/28/2018 Status: F Source: [place] FINGERSTICK 10:46 AM [facility] REPOSITORY TYPE CODE TESTS RESULT OUT OF REFERENCE UNITS RANGE LAB L9200.1001 11.9-14.4 SEC High PROTIME ISTAT 30.3 Result Comment: Reference Range 11.9 - 14.4 LAB L9200.2000 Normal INR ISTAT 2.60 Result Comment: Critical Value > 3.5 Performed By: #### L9200.0000 #### [facility] Laboratory Point of Care [address] [place] [address] PROTIME W/INR Collected: 09/18/2018 Status: F Source: [place] FINGER[place]ICK 10:31 AM [facility] REPOSITORY TYPE CODE TESTS RESULT OUT OF REFERENCE UNITS RANGE LAB L9200.1001 11.9-14.4 SEC High PROTIME ISTAT 16.1 Result Comment: Reference Range 11.9 - 14.4 LAB L9200.2000 Normal INR ISTAT 1.40 Result Comment: Critical Value > 3.5 Performed By: #### L9200.0000 #### [facility] Laboratory Point of Care [address] [place] [address] PROTIME W/INR Collected: 08/27/2018 Status: F Source: [place] FINGER[place] 10:36 AM [facility] REPOSITORY TYPE CODE TESTS RESULT OUT OF REFERENCE UNITS RANGE LAB L9200.1001 11.9-14.4 SEC High PROTIME ISTAT 23.2 Result Comment: Reference Range 11.9 - 14.4 LAB L9200.2000 Normal INR ISTAT 2.00 Result Comment: Critical Value > 3.5 Performed By: #### L9200.0000 #### [facility] Laboratory Point of Care [address] [place] [address] CBC W/DIFF, AUTOMATED Collected: 08/20/2018 Status: F Source: [place] 10:30 AM [facility] REPOSITORY TYPE CODE TESTS RESULT OUT OF [...] Lymph 0.82 Performed By: #### L100.0100 #### [facility] Laboratory [address] [place], [address] PROTHROMBIN TIME W/INR Collected: 08/20/2018 Status: F Source: [place] 10:30 AM [facility] REPOSITORY Order Comment: Comments: STANDING ORDER/PATIENT IS [...] SAME . Performed By: #### L300.3900 #### [facility] Laboratory [address] [place], [address] CARDIOLOGY VISIT Observed: 08/07/2018 Status: F Source: [place] REPORT 4:16 PM [facility] REPOSITORY [facility] [address] [place] [address] OFFICE VISIT Date of Service: 08/07/18 MR#: [id number] Acct: [id number] Name: CHRISTIANO VALVERDE Rep #: [id number] : 1940 Provider: VAHID Matthews Age/Sex: 78/F Location: [facility] Status: Signed HPI HPI Details: CHRISTIANO VALVERDE, is a 78 F who presents to the office today for a cardiovascular follow-up. 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 Patient was admitted to [facility] in July 2018 for syncopal episode. She [...] it caused renal failure. thyroid, pork [From [place] Thyroid] Allergy (Severe, Verified 08/07/18 13:40) Unknown [...] PO DAILY tab 08/07/18 [History Confirmed 08/07/18] [facility] Medical History Paroxysmal atrial fibrillation (Chronic) MGUS [...] Status: F Source: [place] FINGER[place] 10:59 AM [facility] REPOSITORY TYPE CODE TESTS RESULT OUT OF REFERENCE UNITS RANGE LAB L9200.1001 11.9-14.4 SEC High PROTIME ISTAT 18.0 Result Comment: Reference Range 11.9 - 14.4 LAB L9200.2000 Normal INR ISTAT 1.50 Result Comment: Critical Value > 3.5 Performed By: #### L9200.0000 #### [facility] Laboratory Point of Care [address] [place] [place] [address] DISCHARGE INSTRUCTION Observed: 07/28/2018 Status: F Source: [place] 2:16 PM [facility] REPOSITORY [facility] Medical Records Department [address] [place] [address] Instructions for Home/Discharge Instructions 07/28/18 1339 MR#: [id number] Acct: [id number] Name: CHRISTIANO VALVERDE Rep #: [id number] : 1940 78 From: Thang Ramirez MD [...] it caused renal failure. thyroid, pork [From [place] Thyroid] Allergy (Severe, Verified 02/13/18 14:45) Unknown [...] DISCHARGE SUMMARY Observed: 07/28/2018 Status: F Source: [place] 10:47 AM [facility] REPOSITORY [facility] Medical Records Department [address] [place] [address] Discharge Summary 07/28/18 1039 MR#: [id number] Acct: [id number] Name: CHRISTIANO VALVERDE Rep #: [id number] : 1940 78 From: Thang Ramirez MD PCP: Michael Muse MD Status: ADM IN Location: [place] [address] Discharge Date and Diagnosis - Problem List [...] Date Recorded By Document 07/28/18 05:00 MLS [id number] 07/28/18 05:56 MLS Orthostatic Vitals Standing -Blood [...] 55 Code Visit Inpatient E AND M: [id number] Disch Hosp 07/28/18 1047 <Electronically signed by Thang Ramirez MD> Date Thang Ramirez MD Cosigner Signature (if applicable): Date CC: Michael Muse MD; Thang Ramirez MD Signed 12 LEAD ELECTROCARDIOGRAM Observed: 07/27/2018 Status: F Source: [place] 3:42 PM [facility] HOSPITAL REPOSITORY [facility] Cardiovascular Services [address] [place] [address] 12 Lead EKG 07/25/18 2303 MR#: [id number] Acct: [id number] Name: CHRISTIANO VALVERDE Rep #: [id number] : 1940 78 From: Otilio Mitchell MD Attending Dr: Thang Ramirez MD Status: ADM IN Ordering Dr: Rian Lozoya MD Date: 07/25/18 Location: [facility] Sex: F C Admitted: 07/26/18 Test Reason : SYNCOPE Blood Pressure : / mmHG Vent. Rate : 072 BPM Atrial Rate : 057 BPM P-R Int : 000 ms QRS Dur : 224 ms QT Int : 510 ms P-R-T Axes : 000 -48 -06 degrees QTc Int : 558 ms Ventricular-paced rhythm Abnormal ECG Confirmed by OTILIO MITCHELL MD ([id number]), medical editor SHAHANA SANDRA ([id number]) on 07/27/2018 3:42:19 PM Referred By: DR LOZOYA Confirmed By:OTILIO MITCHELL MD 07/27/18 1542 Date Otilio Mitchell MD CC: Michael Muse MD; Thang Ramirez MD; Rian Lozoya MD Signed ECHOCARDIOGRAM COMPLETE Observed: 07/27/2018 Status: F Source: [place] 3:09 PM [facility] HOSPITAL REPOSITORY [facility] Cardiovascular Services [address] [place] [address] Echo Complete 07/27/18 1054 MR#: [id number] Acct: [id number] Name: CHRISTIANO VALVERDE Rep #: [id number] : 1940 78 From: Otilio Mitchell MD Attending Dr: Thang Ramirez MD Status: ADM IN Ordering Dr: Richie Rice MD Date: 07/26/18 Location: [facility] Sex: F C Admitted: 07/26/18 Reason [...] Dictated: 07/27/18 1054 Date Transcribed: 07/27/18 1509 Chemical Plant Manager: Signed CONSULTATION Observed: 07/27/2018 Status: F Source: [place] 7:17 AM [facility] REPOSITORY [facility] Medical Records Department [address] [place] [address] Consultation 07/26/18 1705 MR#: [id number] Acct: [id number] Name: CHRISTIANO VALVERDE Rep #: [id number] : 1940 78 From: Otilio Mitchell MD PCP: Michael Muse MD Status: ADM IN Y Location: [place] [address] Reason for Consult Date of Consultation: 07/26/18 [...] nonischemic cardiomyopathy, chronic systolic congestive heart failure [place] Association class IV, valvular heart disease status [...] her office visit she was admitted to [facility] for acute on chronic systolic congestive heart [...] it caused renal failure. thyroid, pork [From [place] Thyroid] Allergy (Severe, Verified 02/13/18 14:45) Unknown [...] History (Last Reviewed 07/26/18 @ 08:35 by Richei Rice MD) Father CAD (coronary artery disease) [...] Date Recorded By Document 07/26/18 05:45 AML [id number] 07/26/18 05:51 AML Orthostatic Vitals Standing -Blood [...] (Auto) 66.7, Lymph % (Auto) 13.6 L, [place] % (Auto) 11.2 H, Eos % (Auto) [...] Clarity Cloudy, Urine pH 6.0, Ur Specific [place] 1.015, Urine Protein 30 H, Urine Glucose [...] 78.1 H, Lymph % (Auto) 9.6 L, [place] % (Auto) 6.9, Eos % (Auto) 5.0, [...] F Source: [place] NO DIFF 5:26 AM [facility] REPOSITORY TYPE CODE TESTS RESULT OUT OF [...] MPV 10.3 Performed By: #### L100.0500 #### [facility] Laboratory [facility] [place], [address] BASIC METABOLIC Collected: 07/27/2018 Status: F Source: [place] PROFILE ([facility]) 5:26 AM [facility] REPOSITORY TYPE CODE TESTS RESULT OUT OF [...] GAP 7 Performed By: #### L500.2500 #### [facility] Laboratory [address] [place], [address] PROTHROMBIN TIME W/INR Collected: 07/27/2018 Status: F Source: [place] 5:26 AM [facility] REPOSITORY TYPE CODE TESTS RESULT OUT OF RANGE REFERENCE UNITS LAB L300.4150 11.7-14.9 SECONDS High PROTIME 23.7 LAB L300.4200 Normal INR 2.1 Performed By: #### L300.3900 #### [facility] Laboratory [address] [place], [address] MAGNESIUM Collected: 07/27/2018 Status: F Source: [place] 5:26 AM [facility] REPOSITORY TYPE CODE TESTS RESULT OUT OF RANGE REFERENCE UNITS LAB L501.5200 1.6-2.6 mg/dL Normal MG 2.3 Performed By: #### L501.5200 #### [facility] Laboratory [address] [place], [address] Observed: 07/26/2018 Status: F Source: [place] STOOL OCCULT BLOOD 6:55 PM [facility] IFOB REPOSITORY STOB iFOB Occult Blood Negative Performed By: #### M100.7900 #### [facility] Laboratory [address] [place], [address] TYPE AND SCREEN Collected: 07/26/2018 Status: F Source: [place] 10:00 AM [facility] REPOSITORY Order Comment: CMV NEG? N Number [...] NEGATIVE Screen Performed By: #### B101.7450 #### [facility] Laboratory [address] [place], [address] Collected: 07/26/2018 Status: F Source: [place] 10:00 AM [facility] REPOSITORY TYPE CODE TESTS RESULT OUT OF REFERENCE UNITS RANGE LAB U100.0000 [id number] TRANSFUSED PRODUCT: T AND S with Crossmatch, Red Cells COUNT: 1 Performed By: #### U100.0000 #### Non-[facility] Laboratory - refer to report for specific site HISTORY AND PHYSICAL Observed: 07/26/2018 Status: F Source: [place] EXAM 8:44 AM [facility] REPOSITORY [facility] Medical Records Department [address] [place] [address] History and Physical 07/26/18 0741 MR#: [id number] Acct: [id number] Name: CHRISTIANO VALVERDE Rep #: [id number] : 1940 78 From: Richie Rice MD PCP: Michael Muse MD Status: ADM KELSIE Y Location: [place] [address] Problem List (1) Syncope and collapse Status: Acute History of Present Illness Date of Admission: 07/26/18 Chief Complaint: Syncope and fall. The patient is a 78 year old F with a significant history of chronic pancytopenia; monoclonal gammopathy nonischemic cardiomyopathy; chronic congestive heart failure [place] heart association class IV; open heart surgery reportedly with reconstruction of 4 valves; previous clot in his heart; A. fib status post AV node ablation with biventricular ICD placement and left atrial appendage ligation; PFO; hypertension; and hyperlipidemia [place]-term anticoagulation with Coumadin; who presented because of transient loss of consciousness leading to a fall. She presented to the emergency department on the same day of her symptoms and was admitted after midnight. Patient got up from a bed and was going to the bathroom when she passed out and fell. Her son heard the fall and came to brain picker patient. 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 thyroid, pork [From [place] Thyroid] Allergy (Severe, Verified 02/13/18 14:45) Unknown [...] placement of #28 tricuspid annuloplasty ring @ [facility] S/P tricuspid valve repair (Chronic) Z98.890 [...] Date Recorded By Document 07/26/18 05:45 AML [id number] 07/26/18 05:51 AML Orthostatic Vitals Standing -Blood [...] of nonischemic cardiomyopathy; chronic congestive heart failure [place] heart association class IV with ejection fraction [...] Lovenox. Code Visit OBSV E AND M: [id number] Initial observation care L3 07/26/18 0844 <Electronically signed by Richie Rice MD> Date Richie Rice MD Cosigner Signature: Date (if applicable) CC: Michael Muse MD; Richie Rice MD Signed CBC W/DIFF, AUTOMATED Collected: 07/26/2018 Status: F Source: [place] 7:18 AM [facility] REPOSITORY TYPE CODE TESTS RESULT OUT OF [...] Normal 1+ Performed By: #### L100.0100 #### [facility] Laboratory [address] [place], [place], [address] BASIC METABOLIC Collected: 07/26/2018 Status: F Source: [place] PROFILE ([facility]) 7:18 AM [facility] REPOSITORY TYPE CODE TESTS RESULT OUT OF [...] GAP 6 Performed By: #### L500.2500 #### [facility] Laboratory [address] [place], [address] EMERGENCY DEPARTMENT Observed: 07/26/2018 Status: F Source: [place] SUMMARY 1:45 AM [facility] REPOSITORY [facility] Medical Records Department [address] [place] [address] Emergency Department Summary 07/25/18 2248 MR#: [id number] Acct: [id number] Name: CHRISTIANO VALVERDE Rep #: [id number] : 1940 78 From: Rian Lozoya MD [...] Decompensated CHF This note was generated with Nuroa dictation software. It may contain incorrect words, [...] your Primary Care Provider. Call [facility] ([phone]) or report to the closest Emergency Room. Call 911 if necessary. 07/26/18 0145 <Electronically signed by Rian Lozoya MD> Date Rian Lozoya MD Cosigner Signature (If Indicated): Date CC: Michael Muse MD URINALYSIS, COMPLETE Collected: 07/26/2018 Status: F Source: [place] 12:55 AM [facility] REPOSITORY Order Comment: Order Date: 07/25/18 Has [...] URINE SEEN Performed By: #### L400.0001 #### [facility] Laboratory [address] [place], [address] Observed: 07/26/2018 Status: F Source: [place] CULTURE, URINE 12:55 AM [facility] REPOSITORY Order Date: 07/26/18 Comments: SPECIMEN IN LAB Urine Culture ORGANISM 1: Escherichia coli [place] Count >100,000 Escherichia coli: REACTION Amoxacillin/Clavulanic Acid [...] <=20 S (NF) indicates non-formulary drug at [facility]. Approval by Infectious Disease Specialist required before non-formulary drugs may be ordered and/or dispensed. Performed By: #### M100.0650 #### [facility] Laboratory [address] [place], [address] CBC W/DIFF, AUTOMATED Collected: 07/25/2018 Status: F Source: [place] 11:20 PM [facility] REPOSITORY TYPE CODE TESTS RESULT OUT OF [...] Lymph 0.51 Performed By: #### L100.0100 #### [facility] Laboratory [address] [place], [place], [address] COMPREHENSIVE METABOLIC Collected: 07/25/2018 Status: F Source: [place] 11:20 PM [facility] REPOSITORY TYPE CODE TESTS RESULT OUT OF [...] 4 Performed By: #### L500.4050, L501.4010 #### [facility] Laboratory [address] [place], [address] TROPONIN-I Collected: 07/25/2018 Status: F Source: [place] 11:20 PM [facility] REPOSITORY TYPE CODE TESTS RESULT OUT OF RANGE REFERENCE UNITS LAB L501.4010 <0.045 ng/mL Normal < 0.015 TROPONIN-I Result Comment: TROPONIN-I EXPECTED VALUES <0.045 Negative 0.045 - 0.590 Consistent with Cardiac Damage > OR = 0.600 Critical Value Not every elevated troponin is indicative of AL. These values should be used with clinical judgement in examining the patient's clinical picture for diagnosis. To establish a diagnosis of AL versus myocardial injury, there must be a demonstrated rise and/or fall in the troponin values, in addition to ischemic symptoms, EKG changes, new regional wall motion abnormality, and/or angiographical evidence. PLEASE NOTE: REFERENCE RANGES EDITED 18 Performed By: #### L500.4050, L501.4010 #### [facility] Laboratory [address] [place], [address] BNP,B-TYPE NATRIURETIC Collected: 07/25/2018 Status: F Source: [place] PEPTIDE 11:20 PM [facility] REPOSITORY TYPE CODE TESTS RESULT OUT OF RANGE REFERENCE UNITS LAB L503.6620 0-100 pg/mL High B-TYPE 2470.4 ADELAIDA PEP Performed By: #### L503.6620 #### [facility] Laboratory [address] [place], [address] PROTHROMBIN TIME W/INR Collected: 07/25/2018 Status: F Source: [place] 11:20 PM [facility] REPOSITORY TYPE CODE TESTS RESULT OUT OF RANGE REFERENCE UNITS LAB L300.4150 11.7-14.9 SECONDS High PROTIME 20.2 LAB L300.4200 Normal INR 1.7 Performed By: #### L300.3900 #### [facility] Laboratory [address] [place], [address] CHEST 1 VIEW Observed: 07/25/2018 Status: F Source: [place] (PORTABLE) 10:47 PM [facility] REPOSITORY [facility] Imaging Services [address] [place] [address] Chest 1 View (Portable) MR#: [id number] Acct: [id number] Name: CHRISTIANO VALVERDE Rep #: [id number] : 1940 F 78 From: Carmela Sandra MD PCP: Michael Muse MD Status: REG ER Study: Chest 1 View (Portable) Date of Exam: 07/25/18 Exam# [id number] Ordering Dr: Rian Lozoya MD STUDY: X-RAY [...] CC: Michael Muse MD; Rian Lozoya MD Chemical Plant Manager: Signed BRAIN/HEAD WITHOUT Observed: 07/25/2018 Status: F Source: [place] CONTRAST 10:47 PM [facility] REPOSITORY [facility] Imaging Services [address] [place] [address] Brain/Head without Contrast MR#: [id number] Acct: [id number] Name: CHRISTIANO VALVERDE Rep #: [id number] : 1940 F 78 From: Mark Anthony Pizarro PCP: Michael Muse MD Status: REG ER Study: Brain/Head without Contrast Date of Exam: 07/25/18 Exam# [id number] Ordering Dr: Rian Lozoya MD STUDY: CT [...] CC: Michael Muse MD; Rian Lozoya MD Chemical Plant Manager: Signed PACEMAKER CHECK Observed: 07/23/2018 Status: F Source: [place] 10:13 AM [facility] REPOSITORY [facility] [address] [place] [address] Pacemaker Check Date of Service: 07/22/181809 MR#: [id number] Acct: [id number] Name: CHRISTIANO VALVERDE Rep #: [id number] : 1940 From: Angelica Kim Age/Sex: 78/F Location: [facility] Status: Signed Billing Codes ICD Device Billing: ICD Dev Interrogate (Rmt) 07/22/181811 <Electronically signed by Angelica Kim > Date Angelica Kim 07/23/18 1013<Electronically signed by Carlos Mcallister MD> Cosigner Signature: Date (if applicable) Carlos Mcallister MD CC: PROTHROMBIN TIME W/INR Collected: 07/20/2018 Status: F Source: [place] 10:40 AM [facility] REPOSITORY TYPE CODE TESTS RESULT OUT OF RANGE REFERENCE UNITS LAB L300.4150 11.7-14.9 SECONDS High PROTIME 24.7 LAB L300.4200 Normal INR 2.2 Performed By: #### L300.3900 #### [facility] Laboratory [facility] [facility] [place], [address] PROTHROMBIN TIME W/INR Collected: 07/15/2018 Status: F Source: [place] 10:50 AM [facility] REPOSITORY Order Comment: Result obtained is for [...] SAME . Performed By: #### L300.3900 #### [facility] Laboratory [place], [address] PROTIME W/INR Collected: 07/15/2018 Status: F Source: [place] FINGERSTICK 10:36 AM [facility] REPOSITORY TYPE CODE TESTS RESULT OUT OF REFERENCE UNITS RANGE LAB L9200.1001 11.9-14.4 SEC High PROTIME ISTAT 64.8 Result Comment: Reference Range 11.9 - 14.4 LAB L9200.2000 High alert INR ISTAT 5.90 Result Comment: Critical Value > 3.5 Performed By: #### L9200.0000 #### [facility] Laboratory [facility] [address] [place] [address] PROTHROMBIN TIME W/INR Collected: 07/06/2018 Status: F Source: [place] 11:45 AM [facility] REPOSITORY Order Comment: Result obtained is for [...] BY SAME. Performed By: #### L300.3900 #### [facility] Laboratory [place], [address] PROTIME W/INR Collected: 07/06/2018 Status: F Source: [place] FINGERSTICK 11:23 AM [facility] REPOSITORY TYPE CODE TESTS RESULT OUT OF REFERENCE UNITS RANGE LAB L9200.1001 11.9-14.4 SEC High PROTIME ISTAT 41.3 Result Comment: Reference Range 11.9 - 14.4 LAB L9200.2000 High alert INR ISTAT 3.70 Result Comment: Critical Value > 3.5 Performed By: #### L9200.0000 #### [facility] Laboratory Point of Care [address] [place] [address] PROTIME W/INR Collected: 06/29/2018 Status: F Source: [place] FINGER[place] 10:32 AM [facility] REPOSITORY TYPE CODE TESTS RESULT OUT OF REFERENCE UNITS RANGE LAB L9200.1001 11.9-14.4 SEC High PROTIME ISTAT 36.1 Result Comment: Reference Range 11.9 - 14.4 LAB L9200.2000 Normal INR ISTAT 3.20 Result Comment: Critical Value > 3.5 Performed By: #### L9200.0000 #### [facility] Laboratory [facility] [address] [place] [address] PROTIME W/INR Collected: 06/11/2018 Status: F Source: [place] 10:30 AM [facility] REPOSITORY TYPE CODE TESTS RESULT OUT OF REFERENCE UNITS RANGE LAB L9200.1001 11.9-14.4 SEC High PROTIME ISTAT 20.1 Result Comment: Reference Range 11.9 - 14.4 LAB L9200.2000 Normal INR ISTAT 1.70 Result Comment: Critical Value > 3.5 Performed By: #### L9200.0000 #### [facility] Laboratory [address] [place] [place] [address] PROTIME W/INR Collected: 06/04/2018 Status: F Source: [place] FINGER[place]ICK 11:05 AM [facility] REPOSITORY TYPE CODE TESTS RESULT OUT OF REFERENCE UNITS RANGE LAB L9200.1001 11.9-14.4 SEC High PROTIME ISTAT 21.4 Result Comment: Reference Range 11.9 - 14.4 LAB L9200.2000 Normal INR ISTAT 1.80 Result Comment: Critical Value > 3.5 Performed By: #### L9200.0000 #### [facility] Laboratory Point of [address] [place], [place] [address] PROTHROMBIN TIME W/INR Collected: 05/28/2018 Status: F Source: [place] 11:55 AM [facility] REPOSITORY Order Comment: TO CONFIRM LOW FINGERSTICK PT/IRN RESULT. THIS IS FIRST TIME WE HAVE DONE FINGERSTICK ON THIS PATIENT AND RESULTS SEEM QUESTIONABLE TYPE CODE TESTS RESULT OUT OF RANGE REFERENCE UNITS LAB L300.4150 11.7-14.9 SECONDS High PROTIME 16.5 LAB L300.4200 Normal INR 1.3 Performed By: #### L300.3900 #### [facility] Laboratory [address] [place], [address] PROTIME W/INR Collected: 05/28/2018 Status: F Source: [place] FINGERSTICK 11:46 AM [facility] REPOSITORY TYPE CODE TESTS RESULT OUT OF REFERENCE UNITS RANGE LAB L9200.1001 11.9-14.4 SEC High PROTIME ISTAT 14.8 Result Comment: Reference Range 11.9 - 14.4 LAB L9200.2000 Normal INR ISTAT 1.20 Result Comment: Critical Value > 3.5 Performed By: #### L9200.0000 #### [facility] Laboratory Point of Care [address] [place] [place] [address] CBC W/DIFF, AUTOMATED Collected: 05/19/2018 Status: F Source: [place] 11:10 AM [facility] REPOSITORY Order Comment: Reason for Laboratory Test [...] 0.66 Performed By: #### L100.0100, L500.4050 #### [facility] Laboratory [address] [place], [address] COMPREHENSIVE METABOLIC Collected: 05/19/2018 Status: F Source: [facility] 11:10 AM [facility] REPOSITORY Order Comment: Reason for Laboratory Test [...] 8 Performed By: #### L100.0100, L500.4050 #### [facility] Laboratory [address] [place], [address] PROTHROMBIN TIME W/INR Collected: 05/19/2018 Status: F Source: [place] 11:10 AM [facility] REPOSITORY TYPE CODE TESTS RESULT OUT OF RANGE REFERENCE UNITS LAB L300.4150 11.7-14.9 SECONDS High PROTIME 19.4 LAB L300.4200 Normal INR 1.6 Performed By: #### L300.3900 #### [facility] Laboratory [address] [facility] [place], [address] VIANEY + PROTEIN ELECT, Collected: 05/19/2018 Status: F Source: [place] SERUM 11:10 AM [facility] REPOSITORY Order Comment: Reason for Laboratory Test ROUTINE Is Patient Fasting? N TYPE CODE TESTS RESULT OUT OF RANGE REFERENCE UNITS LAB L3100.3500 6.0-8.5 g/dL Normal PROTEIN,TOTAL 6.1 LAB L3200.2838 156-4947 mg/dL Normal IMMUNO G 1037 LAB L3200.1400 64-422 mg/dL Normal IMMUNO A 299 LAB L3200.1500 26-217 mg/dL Normal IMMUNOGL M 29 LAB L3200.1510 2.9-4.4 g/dL Normal ALBUMIN 3.5 LAB L3200.1520 0.0-0.4 g/dL Normal OZNZR-1-NPYQ 0.2 LAB L3200.1530 0.4-1.0 g/dL Normal AIHSZ-7-BHCI 0.5 LAB L3200.1540 0.7-1.3 g/dL Normal BETA [...] scan will follow via computer, mail, or stainless steel finisher delivery. Performed By: #### L3100.3425, L3100.3450 #### [facility] (refer to report for specific site) refer to report for address and phone number PROTEIN ELECTROPH, S Collected: 05/19/2018 Status: F Source: [place] 11:10 AM [facility] REPOSITORY Order Comment: Reason for Laboratory Test [...] scan will follow via computer, mail, or stainless steel finisher delivery. Performed at: [facility] [employer] [id number] Cafeteria Manager: Fransisco Wade PhD, Phone: [phone] LAB L3937.6851 . Normal Test not NOTE: performed Performed By: #### L3100.3425, L3100.3450 #### [facility] (refer to report for specific site) refer to report for address and phone number PROTHROMBIN TIME W/INR Collected: 04/27/2018 Status: F Source: [place] 11:30 AM [facility] REPOSITORY TYPE CODE TESTS RESULT OUT OF RANGE REFERENCE UNITS LAB L300.4150 11.7-14.9 SECONDS High PROTIME 29.6 LAB L300.4200 Normal INR 2.8 Performed By: #### L300.3900 #### [facility] Laboratory [address] [place], [address] PACEMAKER CHECK Observed: 04/22/2018 Status: F Source: [place] 4:33 PM [facility] REPOSITORY [facility] [address] [place] [address] Pacemaker Check Date of Service: 04/10/181716 MR#: [id number] Acct: [id number] Name: CHRISTIANO VALVERDE Rep #: [id number] : 1940 From: Angelica Kim Age/Sex: 77/F Location: [facility] Status: Signed Billing Codes ICD Device Billing: ICD Dev Interrogate (Rmt) 04/10/18 171 <Electronically signed by Angelica Kim > Date Angelica Kim 04/22/18 1633<Electronically signed by Otilio Mitchlel MD> Cosign Signature: Date (if applicable) Otilio Mitchell MD CC: BASIC METABOLIC Collected: 04/08/2018 Status: F Source: [place] PROFILE (BMP) 10:50 AM [facility] REPOSITORY TYPE CODE TESTS RESULT OUT OF [...] GAP 6 Performed By: #### L500.2500 #### [facility] Laboratory [address] [facility] [place], [address] PROTHROMBIN TIME W/INR Collected: 04/08/2018 Status: F Source: [place] 10:50 AM [facility] REPOSITORY TYPE CODE TESTS RESULT OUT OF RANGE REFERENCE UNITS LAB L300.4150 11.7-14.9 SECONDS High PROTIME 22.7 LAB L300.4200 Normal INR 2.0 Performed By: #### L300.3900 #### [facility] Laboratory [address] [facility] [place], [address] PROTHROMBIN TIME W/INR Collected: 03/24/2018 Status: F Source: [place] 10:30 AM [facility] REPOSITORY Order Comment: HOMEDRAW TYPE CODE TESTS RESULT OUT OF RANGE REFERENCE UNITS LAB L300.4150 11.7-14.9 SECONDS High PROTIME 22.0 LAB L300.4200 Normal INR 1.9 Performed By: #### L300.3900 #### [facility] Laboratory [address] [place], [address] PROTHROMBIN TIME W/INR Collected: 03/17/2018 Status: F Source: [place] 11:00 AM [facility] REPOSITORY TYPE CODE TESTS RESULT OUT OF RANGE REFERENCE UNITS LAB L300.4150 11.7-14.9 SECONDS High PROTIME 21.1 LAB L300.4200 Normal INR 1.8 Performed By: #### L300.3900 #### Erica [facility] [address] [place], [address] COMPREHENSIVE METABOLIC Collected: 03/17/2018 Status: F Source: [place] [facility] 11:00 AM [facility] REPOSITORY Order Comment: NOT FASTING Order Date: [...] Performed By: #### L500.4050, L501.9520, L100.0100 #### [facility] Laboratory [address] [place], [address] THYROID STIM HORMONE Collected: 03/17/2018 Status: F Source: [place] (TSH) 11:00 AM [facility] REPOSITORY Order Comment: NOT FASTING Order Date: 03/05/18 Order Info: 0786-1 - CMP Order Info: 3016-3 - [place] TYPE CODE TESTS RESULT OUT OF RANGE REFERENCE UNITS LAB L501.9520 0.358-3.74 uIU/mL High TSH 6.85 Performed By: #### L500.4050, L501.9520, L100.0100 #### [facility] Laboratory [address] [place], [place], [address] CBC W/DIFF, AUTOMATED Collected: 03/17/2018 Status: F Source: [place] 11:00 AM [facility] REPOSITORY Order Comment: Order Date: 03/05/18 Order [...] Performed By: #### L500.4050, L501.9520, L100.0100 #### [facility] Laboratory [address] [place], [place], [address] BNP,B-TYPE NATRIURETIC Collected: 03/17/2018 Status: F Source: [place] PEPTIDE 11:00 AM [facility] REPOSITORY TYPE CODE TESTS RESULT OUT OF RANGE REFERENCE UNITS LAB L503.6620 0-100 pg/mL High B-TYPE 1048.7 ADELAIDA PEP Performed By: #### L503.6620 #### [facility] Laboratory [address] [place], [address] BASIC METABOLIC Collected: 03/03/2018 Status: F Source: [place] PROFILE (BMP) 10:45 AM [facility] REPOSITORY TYPE CODE TESTS RESULT OUT OF [...] GAP 6 Performed By: #### L500.2500 #### [facility] Laboratory [address] [place], [address] PROTHROMBIN TIME W/INR Collected: 03/03/2018 Status: F Source: [place] 10:45 AM [facility] REPOSITORY TYPE CODE TESTS RESULT OUT OF RANGE REFERENCE UNITS LAB L300.4150 11.7-14.9 SECONDS High PROTIME 32.1 LAB L300.4200 Normal INR 3.1 Performed By: #### L300.3900 #### [facility] Laboratory [address] [place], [address] CARDIOLOGY VISIT Observed: 02/17/2018 Status: F Source: [place] REPORT 9:55 PM [facility] REPOSITORY [facility] [address] [place] [address] OFFICE VISIT Date of Service: 02/13/18 MR#: [id number] Acct: [id number] Name: CHRISTIANO VALVERDE Rep #: [id number] : 1940 Provider: Devin Gamboa Age/Sex: 77/F Location: [facility] Status: Signed HPI HPI Details: CHRISTIANO VALVERDE, is a 77 F who presents to the office today for a cardiovascular follow-up. She has a history of nonischemic cardiomyopathy, chronic systolic congestive heart failure [place] Association class IV, valvular heart disease status [...] her office visit she was admitted to [facility] for acute on chronic systolic congestive heart [...] DC PCU 5-8; also 1 M FU Net Developer Consultant Required: No Accompanied by: son Is patient in pain?: No Allergies levothyroxine sodium [From Synthroid] Allergy (Severe, Verified 02/13/18 14:45) Pt states it caused renal failure. thyroid, pork [From [place] Thyroid] Allergy (Severe, Verified 02/13/18 14:45) Unknown [...] pills in the evening, then you can brain picker your next Rx- that will be the [...] 02/17/2018 Status: F Source: [place] 10:50 AM [facility] REPOSITORY TYPE CODE TESTS RESULT OUT OF RANGE REFERENCE UNITS LAB L300.4150 11.7-14.9 SECONDS High PROTIME 26.7 LAB L300.4200 Normal INR 2.5 Performed By: #### L300.3900 #### [facility] [address] [place], [place], [address] PROTHROMBIN TIME W/INR Collected: 02/10/2018 Status: F Source: [place] 10:30 AM [facility] REPOSITORY Order Comment: HOMEDRAW TYPE CODE TESTS RESULT OUT OF RANGE REFERENCE UNITS LAB L300.4150 11.7-14.9 SECONDS High PROTIME 21.3 LAB L300.4200 Normal INR 1.8 Performed By: #### L300.3900 #### [facility] Laboratory [address] [place], [address] PROTHROMBIN TIME W/INR Collected: 02/06/2018 Status: F Source: [place] 10:20 AM [facility] REPOSITORY Order Comment: PT/INR TO DR. MCALLISTER BMP TO DEVIN GAMBOA TYPE CODE TESTS RESULT OUT OF RANGE REFERENCE UNITS LAB L300.4150 11.7-14.9 SECONDS High PROTIME 16.3 LAB L300.4200 Normal INR 1.3 Performed By: #### L300.3900 #### [facility] [address] [place], [place], [address] BASIC METABOLIC Collected: 02/06/2018 Status: F Source: [place] PROFILE (BMP) 10:20 AM [facility] REPOSITORY Order Comment: PT/INR TO DR. MCALLISTER [...] GAP 4 Performed By: #### L500.2500 #### [facility] [address] [place], [address] CARDIOLOGY VISIT Observed: 02/06/2018 Status: F Source: [place] REPORT 7:59 AM [facility] REPOSITORY [facility] [address] [place] [address] OFFICE VISIT Date of Service: 01/23/18 MR#: [id number] Acct: [id number] Name: CHRISTIANO VALVERDE Rep #: [id number] : 1940 Provider: Devin Gamboa Age/Sex: 77/F [place] [facility] Status: Signed HPI HPI Details: CHRISTIANO VALVERDE, is a 77 F who presents to the office today for a cardiovascular follow-up. She has a history of nonischemic cardiomyopathy, chronic systolic congestive heart failure [place] Association class IV, valvular heart disease status [...] 102/62 Intake Visit Reasons: 6 wk FU Net Developer Consultant Required: No Accompanied by: son Is patient in pain?: No Allergies levothyroxine sodium [From Synthroid] Allergy (Severe, Verified 01/23/18 14:09) Pt states it caused renal failure. thyroid, pork [From [place] Thyroid] Allergy (Severe, Verified 01/23/18 14:09) Unknown [...] by Devin FORD> Date Devin FORD 02/06/18 1623<Electronically signed by Carlos Mcallister MD> Cosigner Signature: Date (if applicable) Carlos Mcallister MD CC: Michael Muse MD 12 LEAD ELECTROCARDIOGRAM Observed: 01/28/2018 Status: F Source: [place] 1:20 PM [facility] Cardiovascular Services [address] [place] [address] 12 Lead EKG 01/25/182138 MR#: [id number] Acct: [id number] Name: CHRISTIANO VALVERDE Rep #: [id number] : 1940 77 From: Carlos Mcallister MD Attending Dr: Thang Ramirez MD Status: DIS IN Ordering Dr: Agata Morejon MD Date: 01/25/18 Location: [facility] Sex: F C Admitted: 01/25/18 Test Reason : SOB Blood Pressure : / mmHG Vent. Rate : 141 BPM Atrial Rate : 038 BPM P-R Int : 000 ms QRS Dur : 090 ms QT Int : 086 ms P-R-T Axes : 000 -24 000 degrees QTc Int : 131 ms Electronic ventricular pacemaker Borderline ECG Confirmed by ESVIN PAUL, CARLOS ([id number]), medical editor SHAHANA SANDRA ([id number]) on 01/28/2018 1:19:55 PM Referred By: DAISY Confirmed By:CARLOS MCALLISTER MD 01/28/18 1320 Date Carlos Mcallister MD CC: Agata Morejon MD; Michael Muse MD; Thang Ramirez MD Signed DISCHARGE INSTRUCTION Observed: 01/27/2018 Status: F Source: [place] 9:49 AM [facility] Medical Records Department [address] [place] [address] Instructions for Home/Discharge Instructions 01/27/1848 MR#: [id number] Acct: [id number] Name: CHRISTIANO VALVERDE Rep #: [id number] : 1940 77 From: Thang Ramirez MD PCP: Michael Muse MD Status: ADM IN You will use the following diet at home:: Cardiac, Fluid restricted (specify 2000 mls, 1500 mls) - 1999 Discharge Activity: Return to Normal Activity Allergies/Adverse Reactions: Allergies levothyroxine sodium [From Synthroid] Allergy (Severe, Verified 01/23/18 14:09) Pt states it caused renal failure. thyroid, pork [From [place] Thyroid] Allergy (Severe, Verified 01/23/18 14:09) Unknown [...] 01/27/2018 Status: F Source: [place] 9:40 AM [facility] REPOSITORY [facility] Medical Records Department [address] [place] [address] Discharge Summary 01/27/18 0936 MR#: [id number] Acct: [id number] Name: CHRISTIANO VALVERDE Rep #: [id number] : 1940 77 From: Thang Ramirez MD PCP: Michael Muse MD Status: ADM IN Y Location: [place] [address]-1 Discharge Date and Diagnosis Date of Admission: [...] thinning. No evidence of bowel obstruction. at 2674 Reported and signed by: Shahana Maddox MD [...] 20 Code Visit Inpatient E AND M: 89630 Disch Hosp 01/27/18 0940 <Electronically signed by Thang Ramirez MD> Date Thang Ramirez MD Cosigner Signature (if applicable): Date CC: Michael Muse MD; Thang Ramirez MD Signed TROPONIN-I Collected: 01/26/2018 Status: F Source: [place] 11:50 AM [facility] REPOSITORY Order Comment: 'TROP' Serial specimen #1, #2, #3, or #4: 4 TYPE CODE TESTS RESULT OUT OF RANGE REFERENCE UNITS LAB L501.4010 <0.06 ng/mL Normal < 0.02 TROPONIN-I Result Comment: TROPONIN-I EXPECTED VALUES <0.05 NEGATIVE 0.06 - 0.59 AT RISK OF AL > OR = 0.60 SUGGEST AL Performed By: #### L501.4010, L500.2500 #### [facility] Laboratory [address] [place], [address] ABDOMEN/PELVIS WITH Observed: 01/26/2018 Status: F Source: [place] CONTRAST 9:14 AM [facility]OS[facility] REPOSITORY [facility] Imaging Services [address] [place] [address] Abdomen/Pelvis WITH Contrast MR#: [id number] Acct: [id number] Name: CHRISTIANO VALVERDE Rep #: [id number] : 1940 F 77 From: Axel Condon MD PCP: Michael Muse MD Status: ADM IN Study: Abdomen/Pelvis WITH Contrast Date of Exam: 01/26/18 Exam# [id number] Ordering Dr: Thang Ramirez MD STUDY: CT [...] CC: Michael Muse MD; Thang Ramirez MD Chemical Plant Manager: Signed BASIC METABOLIC Collected: 01/26/2018 Status: F Source: [place] PROFILE (BMP) 5:35 AM [facility] REPOSITORY Order Comment: 'TROP' Serial specimen #1, [...] 5 Performed By: #### L501.4010, L500.2500 #### [facility] Laboratory [address] [place], [place], [address] CBC W/DIFF, AUTOMATED Collected: 01/26/2018 Status: F Source: [place] 5:35 AM [facility] REPOSITORY TYPE CODE TESTS RESULT OUT OF [...] Lymph 0.67 Performed By: #### L100.0100 #### [facility] [place], [address] PROTHROMBIN TIME W/INR Collected: 01/26/2018 Status: F Source: [place] 5:35 AM [facility] REPOSITORY TYPE CODE TESTS RESULT OUT OF RANGE REFERENCE UNITS LAB L300.4150 11.7-14.9 SECONDS High PROTIME 22.7 LAB L300.4200 Normal INR 2.0 Performed By: #### L300.3900 #### [facility] Laboratory [address] [place], [address] MAGNESIUM Collected: 01/26/2018 Status: F Source: [place] 2:10 AM [facility] REPOSITORY TYPE CODE TESTS RESULT OUT OF RANGE REFERENCE UNITS LAB L501.5200 1.6-2.6 mg/dL Normal MG 2.4 Performed By: #### L501.5200 #### [facility] Laboratory [address] [place], [address] HISTORY AND PHYSICAL Observed: 01/26/2018 Status: F Source: [place] EXAM 1:24 AM [facility] REPOSITORY [facility] Medical Records Department [address] [place] [address] History and Physical 01/26/18 0005 MR#: [id number] Acct: [id number] Name: CHRISTIANO VALVERDE Rep #: [id number] : 1940 77 From: Martha Hernandez MD PCP: Michael Muse MD Status: ADM IN Location: [place] [address] Problem List (1) Atrial flutter Status: Chronic [...] it caused renal failure. thyroid, pork [From [place] Thyroid] Allergy (Severe, Verified 01/23/18 14:09) Unknown [...] systolic and diastolic CHF: Admit to PCU, satellite project site monitor, serial cardiac enzymes, fluid restriction to less [...] chronic pancytopenia/MGUS. This note was generated with [employer]is Systems[employer] software. It may contain incorrect words, spelling, and punctuation that were not noted in checking the note before signing. Code Visit Inpatient E AND M: 33130 Init Hosp 01/26/18 0124 <Electronically signed by Martha Hernandez MD> Date Martha Hernandez MD Cosigner Signature: Date (if applicable) CC: Michael Muse MD; Martha Hernandez Signed EMERGENCY DEPARTMENT Observed: 01/26/2018 Status: F Source: [place] SUMMARY 12:00 AM [facility] REPOSITORY [facility] Medical Records Department [address] [place] [address] Emergency Department Summary 01/25/18 2211 MR#: [id number] Acct: [id number] Name: CHRISTIANO VALVERDE Rep #: [id number] : 1940 77 From: Agata Morejon MD [...] pleural effusion This note was generated with Nuroa dictation software. It may contain incorrect words, [...] your Primary Care Provider. Call [facility] ([phone]) or report to the closest Emergency Room. Call 911 if necessary. 01/26/18 0000 <Electronically signed by Agata Morejon MD> Date Agata Morejon MD Cosigner Signature (If Indicated): Date CC: Michael Muse MD CBC W/DIFF, AUTOMATED Collected: 01/25/2018 Status: F Source: [place] 10:01 PM [facility] REPOSITORY TYPE CODE TESTS RESULT OUT OF [...] Lymph 0.64 Performed By: #### L100.0100 #### [facility] Laboratory [address] [place], [address] PROTHROMBIN TIME W/INR Collected: 01/25/2018 Status: F Source: [place] 10:01 PM [facility] REPOSITORY TYPE CODE TESTS RESULT OUT OF RANGE REFERENCE UNITS LAB L300.4150 11.7-14.9 SECONDS High PROTIME 23.8 LAB L300.4200 Normal INR 2.1 Performed By: #### L300.3900 #### [facility] Laboratory [address] [place], [address] BASIC METABOLIC Collected: 01/25/2018 Status: F Source: [place] PROFILE (BMP) 10:01 PM [facility] REPOSITORY Order Comment: 'TROP' Serial specimen #1, [...] 5 Performed By: #### L500.2500, L501.4010 #### [facility] Laboratory [address] [place], [address] TROPONIN-I Collected: 01/25/2018 Status: F Source: [place] 10:01 PM [facility] REPOSITORY Order Comment: 'TROP' Serial specimen #1, #2, #3, or #4: 1 TYPE CODE TESTS RESULT OUT OF RANGE REFERENCE UNITS LAB L501.4010 <0.06 ng/mL Normal < 0.02 TROPONIN-I Result Comment: TROPONIN-I EXPECTED VALUES <0.05 NEGATIVE 0.06 - 0.59 AT RISK OF AL > OR = 0.60 SUGGEST AL Performed By: #### L500.2500, L501.4010 #### [facility] Laboratory [address] [place], [address] BNP,B-TYPE NATRIURETIC Collected: 01/25/2018 Status: F Source: [place] PEPTIDE 10:01 PM [facility] REPOSITORY TYPE CODE TESTS RESULT OUT OF RANGE REFERENCE UNITS LAB L503.6620 0-100 pg/mL High B-TYPE 1252.2 ADELAIDA PEP Performed By: #### L503.6620 #### [facility] Laboratory [address] [place], [address] CHEST 1 VIEW Observed: 01/25/2018 Status: F Source: [place] (PORTABLE) 9:28 PM [facility] REPOSITORY [facility] Imaging Services [address] [place] [address] Chest 1 View (Portable) MR#: [id number] Acct: [id number] Name: CHRISTIANO VALVERDE Rep #: [id number] : 1940 F 77 From: Maurice Da Silva PCP: Michael Muse MD Status: REG ER Study: Chest 1 View (Portable) Date of Exam: 01/25/18 Exam# [id number] Ordering Dr: Agata Morejon MD STUDY: X-RAY [...] CC: Agata Morejon MD; Michael Muse MD Chemical Plant Manager: Signed ABDOMEN/PELVIS WITHOUT Observed: 01/25/2018 Status: F Source: [place] CONT 9:28 PM [facility] REPOSITORY [facility] Imaging Services [address] [place] [address] Abdomen/Pelvis without Cont MR#: [id number] Acct: [id number] Name: CHRISTIANO VALVERDE Rep #: [id number] : 1940 F 77 From: Shahana Maddox MD PCP: Michael Muse MD Status: REG ER Study: Abdomen/Pelvis without Cont Date of Exam: 01/25/18 Exam# [id number] Ordering Dr: Agata Morejon MD CT Abdomen [...] CC: Agata Morejon MD; Michael Muse MD Chemical Plant Manager: Signed PACEMAKER CHECK Observed: 01/22/2018 Status: F Source: [place] 4:41 PM [facility] REPOSITORY [facility] [address] [place] [address] Pacemaker Check Date of Service: 01/09/18 1541 MR#: [id number] Acct: [id number] Name: CHRISTIANO VALVERDE Rep #: [id number] : 1940 From: Angelica Kim Age/Sex: 77/F Location: [facility] Status: Signed Comments Summary Comments: Remote Bi-VICD [...] Location: remote Interview Reason: scheduled follow up Machine Pan Greaser: Medtronic Name: Viva XT IMMIGRATION CONSULTANT-D Model: [id number] Serial #: [id number] Implant Date: 05/22/17 Year(s): 0 Implant Physician: Dr. Kwasi Fisher/[facility] Patient Characteristics Atrial Indication: Permanent atrial fibrillation Ventricular Indication: Nonsustained VT Patient Substrate: Nonischemic cardiomyopathy (Hypertrophic) Ejection fraction %: 20 to 24 (07/2016) By: Echo Underlying rhythm: Atrial fibrillation Pacemaker Dependent: Yes (no intrinsic R waves) Device Characteristics Device: Biventricular Type: Implantable defibrillator Remote Follow-Up: [facility] Leads Lead #1 Machine Pan Greaser Lead 1: Medtronic Model Lead 1: 5076 Serial# Lead 1: [id number] Date Implanted Lead 1: 07/16/07 Position Lead 1: RA Lead #2 Machine Pan Greaser Lead 2: Medtronic Model Lead 2: 6947 Serial# Lead 2: [id number] Date Implanted Lead 2: 07/16/07 Position Lead 2: RV Lead #3 Machine Pan Greaser Lead 3: Medtronic Model Lead 3: 4193 Serial# Lead 3: [id number] Date Implanted Lead 3: 07/16/07 Position Lead [...] 01/22/2018 Status: F Source: [place] 10:30 AM [facility] REPOSITORY Order Comment: HOMEDRAW TYPE CODE TESTS RESULT OUT OF RANGE REFERENCE UNITS LAB L300.4150 11.7-14.9 SECONDS High PROTIME 34.5 LAB L300.4200 Normal INR 3.4 Performed By: #### L300.3900 #### [facility] Laboratory [address] [place], [address] PROTHROMBIN TIME W/INR Collected: 12/30/2017 Status: F Source: [place] 10:45 AM [facility] REPOSITORY Order Comment: HOMEDRAW ORDERED PT, INTERNAL ORDER BY MY MATTHEWS FOR [facility] TYPE CODE TESTS RESULT OUT OF RANGE REFERENCE UNITS LAB L300.4150 11.7-14.9 SECONDS High PROTIME 24.4 LAB L300.4200 Normal INR 2.2 Performed By: #### L300.3900, L500.2500 #### [facility] Laboratory [address] [place], [place], [address] BASIC METABOLIC Collected: 12/30/2017 Status: F Source: [place] PROFILE (BMP) 10:45 AM [facility] REPOSITORY Order Comment: HOMEDRAW ORDERED PT, INTERNAL [...] 8 Performed By: #### L300.3900, L500.2500 #### [facility] Laboratory [address] [place], [address] PROTHROMBIN TIME W/INR Collected: 12/16/2017 Status: F Source: [place] 10:40 AM [facility] REPOSITORY Order Comment: HOMEDRAW TYPE CODE TESTS RESULT OUT OF RANGE REFERENCE UNITS LAB L300.4150 11.7-14.9 SECONDS High PROTIME 28.6 LAB L300.4200 Normal INR 2.7 Performed By: #### L300.3900 #### [facility] Laboratory [address] [place], [address] CARDIOLOGY VISIT Observed: 12/13/2017 Status: F Source: [place] REPORT 12:02 PM [facility] REPOSITORY [facility] [address] [place] [address] OFFICE VISIT Date of Service: 12/12/17 MR#: [id number] Acct: [id number] Name: CHRISTIANO VALVERDE Rep #: [id number] : 1940 Provider: VAHID Matthews Age/Sex: 77/F [place] [facility] Status: Signed HPI HPI Details: CHRISTIANO VALVERDE, is a 77 F who presents to the office today for a cardiovascular outpatient follow-up. She has a history of nonischemic cardiomyopathy, chronic systolic congestive heart failure [place] Association class IV, valvular heart disease status [...] Visit Reasons: per MS, inc fatigue, sob Net Developer Consultant Required: No Accompanied by: Son Is patient in pain?: No Allergies levothyroxine sodium [From Synthroid] Allergy (Severe, Verified 12/12/17 15:33) Pt states it caused renal failure. thyroid, pork [From [place] Thyroid] Allergy (Severe, Verified 12/12/17 15:33) Unknown [...] 12/12/17] Ejection fraction %: 20 to 24 [facility] Medical History group home current use of anticoagulant (Chronic) Paroxysmal atrial [...] asked to keep in touch with primary slag dumper or primary care physician for this. Plan [...] type D64.9 Anemia type: unspecified type 12/12/17 4896 <Electronically signed by My XAVIER> Date My Matthews NEWS WIRE PHOTO OPERATOR-C 12/13/17 1202<Electronically signed by Otilio Mitchell MD> Cosigner Signature: Date (if applicable) Otilio Mitchell MD CC: Michael Muse MD PROTHROMBIN TIME W/INR Collected: 11/25/2017 Status: F Source: [place] 10:05 AM [facility] REPOSITORY TYPE CODE TESTS RESULT OUT OF RANGE REFERENCE UNITS LAB L300.4150 11.7-14.9 SECONDS High PROTIME 29.4 LAB L300.4200 Normal INR 2.8 Performed By: #### L300.3900 #### [facility] Laboratory [address] [place], [address] BNP,B-TYPE NATRIURETIC Collected: 11/14/2017 Status: F Source: [place] PEPTIDE 12:22 PM [facility] REPOSITORY TYPE CODE TESTS RESULT OUT OF RANGE REFERENCE UNITS LAB L503.6620 0-100 pg/mL High B-TYPE 776.2 ADELAIDA PEP Performed By: #### L503.6620 #### [facility] Laboratory [address] [place], [address] COMPREHENSIVE METABOLIC Collected: 11/14/2017 Status: F Source: [place] PROFIL 12:22 PM [facility] REPOSITORY Order Comment: Order Date: 11/14/17 Order [...] By: #### L500.4050, L501.9520, L100.0100, L506.1000 #### [facility] Laboratory [address] [place], [place], [address] THYROID STIM HORMONE Collected: 11/14/2017 Status: F Source: [place] (TSH) 12:22 PM [facility] REPOSITORY Order Comment: Order Date: 11/14/17 Order Info: 0786-1 - CMP Order Info: 3016-3 - TSH TYPE CODE TESTS RESULT OUT OF RANGE REFERENCE UNITS LAB L501.9520 0.358-3.74 uIU/mL High TSH 6.17 Performed By: #### L500.4050, L501.9520, L100.0100, L506.1000 #### [facility] Laboratory [place], [address] CBC W/DIFF, AUTOMATED Collected: 11/14/2017 Status: F Source: [place] 12:22 PM [facility] REPOSITORY Order Comment: Order Date: 11/14/17 Order [...] By: #### L500.4050, L501.9520, L100.0100, L506.1000 #### [facility] Laboratory [address] [place], [address] VITAMIN D,25 HYDROXY Collected: 11/14/2017 Status: F Source: ERICA 12:22 PM [facility] REPOSITORY Order Comment: Order Date: 11/14/17 Order Info: 74349-3 - VITD25 TYPE CODE TESTS RESULT OUT OF REFERENCE UNITS RANGE LAB L506.1000 19.95-100.01 ng/mL Low Vitamin D 8.0 25-OH Result Comment: Vitamin D 25(OH) Status Range Deficiency <20 ng/mL (50nmol/L) Insuffciency 20 - 30 ng/mL (50 - 75 nmol/L) Sufficiency 30 - 100 ng/mL (75 - 250 nmol/L) Toxicity >100 ng/mL (>250 nmol/L) Performed By: #### L500.4050, L501.9520, L100.0100, L506.1000 #### [facility] Laboratory [address] [place], [address] PROTHROMBIN TIME W/INR Collected: 11/11/2017 Status: F Source: ERICA 10:50 AM [facility] REPOSITORY TYPE CODE TESTS RESULT OUT OF RANGE REFERENCE UNITS LAB L300.4150 11.7-14.9 SECONDS High PROTIME 26.4 LAB L300.4200 Normal INR 2.5 Performed By: #### L300.3900 #### [facility] Laboratory [address] [place], [address] BONE SURVEY COMP(AXIAL Observed: 10/31/2017 Status: F Source: ERICA AND APPEND) 2:34 PM [facility] REPOSITORY [facility] Imaging Services [address] [place] [address] Bone Survey Comp(Axial AND Append) MR#: [id number] Acct: [id number] Name: CHRISTIANO VALVERDE Rep #: [id number] : 1940 F 77 From: Phuc Kennedy DO PCP: Michael Muse MD Status: REG CLI Study: Bone Survey Comp(Axial AND Append) Date of Exam: 10/31/17 Exam# [id number] Ordering Dr: Ciara Arambula MD STUDY: X-RAY [...] Phuc Kennedy DO at 18:52 EST Tel [phone], Service support , CC: Michael Muse MD; Ciara Arambula MD Chemical Plant Manager: Signed PROTHROMBIN TIME W/INR Collected: 10/27/2017 Status: F Source: ERICA 11:25 AM [facility] REPOSITORY TYPE CODE TESTS RESULT OUT OF RANGE REFERENCE UNITS LAB L300.4150 11.7-14.9 SECONDS High PROTIME 23.3 LAB L300.4200 Normal INR 2.2 Performed By: #### L300.3900 #### Eric[facility] Laboratory [address] [place], [address] OFFICE VISIT REPORT Observed: 10/20/2017 Status: F Source: ERICA 8:16 AM [facility] REPOSITORY [place] [address] [place] [address] OFFICE VISIT Date of Service: 10/07/17 MR#: [id number] Acct: [id number] Patient: CHRISTIANO VALVERDE Rep #: [id number] : 1940 Provider: Angelica Kim Age/Sex: 77/F [...] Location: remote Interview Reason: scheduled follow up Machine Pan Greaser: Medtronic Name: Viva XT IMMIGRATION CONSULTANT-D Model: [id number] Serial #: [id number] Implant Date: 05/22/17 Year(s): 0 Implant Physician: Dr. Kwasi Fisher/[facility] Patient Characteristics Atrial Indication: Permanent atrial fibrillation Ventricular Indication: Nonsustained VT Patient Substrate: Nonischemic cardiomyopathy (Hypertrophic) Ejection fraction %: 20 to 24 (07/2016) By: Echo Underlying rhythm: Atrial fibrillation Pacemaker Dependent: Yes (no intrinsic R waves) Device Characteristics Device: Biventricular Type: Implantable defibrillator Remote Follow-Up: CareBleacher Report Leads Lead #1 Machine Pan Greaser Lead 1: Medtronic Model Lead 1: 5076 Serial# Lead 1: [id number] Date Implanted Lead 1: 07/16/07 Position Lead 1: RA Lead #2 Machine Pan Greaser Lead 2: Medtronic Model Lead 2: 6947 Serial# Lead 2: [id number] Date Implanted Lead 2: 07/16/07 Position Lead 2: RV Lead #3 Machine Pan Greaser Lead 3: Medtronic Model Lead 3: 4193 Serial# Lead 3: [id number] Date Implanted Lead 3: 07/16/07 Position Lead [...] SEVERITY SOURCE 08/07/2018 Drug thyroid, Unknown [place] Allergy/416 pork/[id number](RXN Community 093209([facility] ED CT) Repository 08/07/2018 Drug levothyroxine Pt states it SV [place] Allergy/416 sodium/X042537053(R caused renal Community 373933([facility] XNORM) failure[facility]) Repository 08/07/2018 Drug latex/[id number](RX Rash [place] Allergy/416 NORM) Community 486929([facility] ED CT) Repository ENCOUNTERS ENCOUNTERS ADMIT/DISCHARGE ACCOUNT ADMITTING ENCOUNTER LOCATION SOURCE NUMBER CLASS 10/15/2018 [id number] Ambulatory Erica Erica 1 [facility] ing:LAB Repository 10/12/2018 [id number] Ambulatory [place] 8 [facility] ing:LABSPEC Repository 10/09/2018 [id number] Ambulatory Erica [place] 8 [facility] ing:LAB Repository 10/07/2018 [id number] Ambulatory Erica Erica 4 [facility] ing:LAB Repository 10/05/2018 [id number] Ambulatory Erica [place] 9 [facility] ing:LAB Repository 09/28/2018 [id number] Ambulatory [place] 3 [facility] ing:LAB Repository 09/18/2018 [id number] Ambulatory Erica Erica 9 [facility] ing:LAB Repository 08/27/2018 [id number] Ambulatory Erica Erica 3 [facility] ing:LAB Repository 08/20/2018 [id number] Ambulatory Erica [place] 4 [facility] ing:LAB Repository 08/07/2018/ [id number] Ambulatory BMSBuilding:B Erica 8 2 [facility] Repository 08/06/2018 [id number] Ambulatory [place] Erica 6 [facility] ing:LAB Repository 07/26/2018 [id number] [place], Ambulatory BMSBuilding:B Erica 0 [place] [facility] Repository 07/26/2018/ [id number] Ambulatory BMSBuilding:W [place] 8 7 [facility] Repository 07/26/2018 [id number] [place], Ambulatory BMSBuilding:B Eric[place] 4 [place] [facility] Repository 07/26/2018 [id number] [place], Ambulatory BMSBuilding:B [place] 5 [place] [facility] Repository 07/26/2018/11/06 [id number] [place], Inpatient [place] Erica 8 7 [place] Encounter [facility] ing:PCURoom: Repository [id number]: 1 07/26/2018 [id number] [place], Ambulatory BMSBuilding:B [place] 1 [place] [facility] Repository 07/22/2018/ [id number] Ambulatory BMSBuilding:B [place] 8 9 [facility] Repository 07/20/2018 [id number] Ambulatory Eric[place] 8 [facility] Hospital ing:LAB Repository 07/15/2018 [id number] Ambulatory Erica [place] 3 [facility] Hospital ing:LAB Repository 07/06/2018 [id number] Ambulatory [place] 3 [facility] Hospital ing:LAB Repository 06/29/2018 [id number] Ambulatory Erica Erica 5 [facility] Hospital ing:LAB Repository 06/19/2018 [id number] Ambulatory BMSBuilding:B [place] 3 [facility] Repository 06/11/2018 [id number] Ambulatory Eric[place] 3 [facility] Hospital ing:LAB Repository 06/04/2018 [id number] Ambulatory Erica [place] 0 [facility] Hospital ing:LAB Repository 05/28/2018 [id number] Ambulatory [place] Erica 8 [facility] Hospital ing:LAB Repository 05/19/2018 [id number] Ambulatory [place] 7 [facility] Hospital ing:LAB Repository 04/27/2018 [id number] Ambulatory Erica Erica 6 [facility] Hospital ing:LABSPEC Repository 04/10/2018/ [id number] Ambulatory BMSBuilding:B [place] 8 7 [facility] Repository 04/08/2018 [id number] Ambulatory [place] 3 [facility] Hospital ing:LAB Repository 03/24/2018 [id number] Ambulatory [place] 3 [facility] Hospital ing:LABSPEC Repository 03/17/2018 [id number] Ambulatory [place] 2 [facility] Hospital ing:LABSPEC Repository 03/13/2018 [id number] Ambulatory BMSBuilding:B [place] 7 [facility] Repository 03/06/2018 [id number] Ambulatory BMS Erica 9 [facility] Hospital Repository 03/03/2018 [id number] Ambulatory [place] Erica 1 [facility] Hospital ing:LABSPEC Repository 02/17/2018 [id number] Ambulatory [place] 5 [facility] ing:LABSPEC Repository 02/13/2018/ [id number] Ambulatory BMSBuilding:B [place] 8 4 [facility] Repository 02/10/2018 [id number] Ambulatory Eric[place] 9 [facility] ing:LABSPEC Repository 02/09/2018 [id number] Ambulatory BMS [place] 8 [facility] Hospital Repository 02/06/2018 [id number] Ambulatory Erica Erica 2 [facility] ing:LAB Repository 01/25/2018 [id number] [facility], Ambulatory BMSBuilding:B [place] 7 [place] [facility] Repository 01/25/2018 [id number] [facility], Ambulatory BMSBuilding:B [place] 0 [place] [facility] Repository 01/25/2018/ [id number] [facility], Inpatient Eric[place] 8 4 Ghas[place] Encounter [facility] ing:Annaom: Repository HJE462Upe: 1 01/23/2018/ [id number] Ambulatory BMSBuilding:B [place] 8 5 [facility] Repository 01/22/2018 [id number] Ambulatory Eric[place] 8 [facility] Hospital ing:LABSPEC Repository 01/15/2018 [id number] Ambulatory BMS Eric[place] 3 [facility] Hospital Repository 01/09/2018/ [id number] Ambulatory BMSBuilding:B [place] 8 2 [facility] Repository 12/30/2017 [id number] Ambulatory Eric[place] 4 [facility] Hospital ing:LABSPEC Repository 12/29/2017 [id number] Ambulatory BMSBuilding:B [place] 0 [facility] Repository 12/16/2017 [id number] Ambulatory Erica [place] 4 [facility] Hospital ing:LABSPEC Repository 12/12/2017/03/23 [id number] Ambulatory BMSBuilding:B [place] 8 7 [facility] Repository 11/25/2017 [id number] Ambulatory [place] Erica 8 [facility] ing:LAB Repository 11/14/2017 [id number] Ambulatory [place] 6 [facility] ing:MFPLAB Repository 11/11/2017 [id number] Ambulatory [place] Erica 0 [facility] ing:LAB Repository 11/07/2017 [id number] Ambulatory [place] 6 [facility] ing:CT Repository 10/31/2017 [id number] Ambulatory Eric[place] 3 [facility] ing:RAD Repository 10/28/2017 [id number] Ambulatory BMSBuilding:B [place] 7 [facility] Repository 10/28/2017 [id number] Ambulatory Eric[place] 3 [facility] ing:OMD Repository 10/27/2017 [id number] Ambulatory [place] 2 [facility] ing:LAB Repository 10/07/2017/ [id number] Ambulatory BMSBuilding:B [place] 8 0 [facility] Repository PAYERS PAYERS ENCOUNTER GUARANTOR PAYER SUBSCRIBER SOURCE 10/15/2018 CHRISTIANO C Primary CHRISTIANO C Eirca [id number] [place]ER Insurance:MEDICARE BUTCHERDOB: [facility], PART A BPolicy [id number] [place] [address]Gzz: Number: Repository [id number] () Date:2018-10-15 10/15/2018 Secondary CHRISTIANO C Erica Insurance:ANTHEMPolic BUTCHERDOB: Community y Number: [id number] Hospital [id number] Repository Date:3123-99-05[address] [address]: 10/15/2018 Tertiary NOT GIVENUNK [place] Insurance:SELF PAY [facility] Number: Effective Repository Date:2018-10-15 10/12/2018 CHRISTIANO C Primary CHRISTIANO C [place] [id number] DEER Insurance:MEDICARE BUTCHERDOB: [facility], PART A [facility] [id number] Hospital [facility] [place] [address]Iis: Number: Repository [id number] () Date:2018-10-12 10/12/2018 Secondary CHRISTIANO C Eric[place] Insurance:ANTHEMPolic BUTCHERDOB: Community y Number: [id number] Hospital [id number] Repository Date:0005-90-97[address], [place] [address]QU: 10/12/2018 Tertiary NOT GIVENUNK [place] Insurance:SELF PAY [facility] Number: Effective Repository Date:2018-10-12 10/09/2018 CHRISTIANO C Primary CHRISTIANO C [place] [id number] [place] Insurance:MEDICARE BUTCHERDOB: [facility], PART A [facility] [id number] Hospital of [facility] [place] [address]Vom: Number: Repository [id number] () Date:2018-10-09 10/09/2018 Secondary CHRISTIANO C [place] Insurance:ANTHEMPolic BUTCHERDOB: Community y Number: [id number] Hospital [id number] Repository Date:5609-83-64[address] [address]MB: 10/09/2018 Tertiary NOT GIVENUNK Eric[place] Insurance:SELF PAY [facility] Number: Effective Repository Date:2018-10-09 10/07/2018 CHRISTIANO C Primary CHRISTIANO C [place] [id number] DEER Insurance:MEDICARE BUTCHERDOB: [facility], PART A [facility] [id number] Hospital of [facility] [place] [address]Pjo: Number: Repository [id number] () Date:2018-10-07 10/07/2018 Secondary CHRISTIANO C [place] Insurance:ANTHEMPolic BUTCHERDOB: Community y Number: [id number] Hospital [id number] Repository Date:3757-12-91[address] [address]ES: 10/07/2018 Tertiary NOT GIVENUNK [place] Insurance:SELF PAY [facility] Number: Effective Repository Date:2018-10-07 10/05/2018 CHRISTIANO C Primary CHRISTIANO C [place] [id number] DEER Insurance:MEDICARE BUTCHERDOB: Community [facility], PART A [facility] [id number] Hospital of [place] [address]Xbc: Number: Repository [id number] (HP) Date:2018-10-05 10/05/2018 Secondary CHRISTIANO C [place] Insurance:ANTHEMPolic BUTCHERDOB: Community y Number: [id number] Hospital [id number] Repository Date:1087-74-10WC [address] [place] [address] [place] [address]DY: 10/05/2018 Tertiary NOT GIVENUNK [place] Insurance:SELF PAY [facility] Number: Effective Repository Date:2018-10-05 09/28/2018 CHRISTIANO C Primary CHRSITIANO C [place] [id number] DEER Insurance:MEDICARE BUTCHERDOB: Community [place], PART A [facility] [id number] Hospital of [facility] [place] [address]Jfi: Number: Repository [id number] () Date:2018-09-28 09/28/2018 Secondary CHRISTIANO C [place] Insurance:ANTHEMPolic BUTCHERDOB: Community y Number: [id number] Hospital [id number] Repository Date:7457-43-15[address], [place] [address]OB: 09/28/2018 Tertiary NOT GIVENUNK Erica Insurance:SELF PAY [facility] Number: Effective Repository Date:2018-09-28 09/18/2018 CHRISTIANO C Primary CHRISTIANO C Eric[place] [id number] [place] Insurance:MEDICARE BUTCHERDOB: Community [place] [facility], PART A [facility] [id number] Hospital [place] [address]Uqn: Number: Repository [id number] (HP) Date:2018-09-18 09/18/2018 Secondary CHRISTIANO C [place] Insurance:ANTHEMPolic BUTCHERDOB: Community y Number: [id number] Hospital [id number] Repository Date:5428-82-42RY [address] [place] [address]FH: 09/18/2018 Tertiary NOT GIVENUNK Erica Insurance:SELF PAY [facility] Number: Effective Repository Date:2018-09-18 08/27/2018 CHRISTIANO C Primary CHRISTIANO C Eric[place] [id number] [place] Insurance:MEDICARE BUTCHERDOB: Community [facility] [address], PART A [facility] [id number] Hospital of [facility] [place] [address]Fku: Number: Repository [id number] () Date:2018-08-27 08/27/2018 Secondary CHRISTIANO C [place] Insurance:ANTHEMPolic BUTCHERDOB: Community y Number: [id number] Hospital [id number] Repository Date:4295-59-73[address] [address]BG: 08/27/2018 Tertiary NOT GIVENUNK [place] Insurance:SELF PAY [facility] Number: Effective Repository Date:2018-08-27 08/20/2018 CHRISTIANO C Primary CHRISTIANO C [place] [id number] DEER Insurance:MEDICARE BUTCHERDOB: Community [place] [address], PART A [facility] [id number] Hospital of [facility] [place] [address]Khc: Number: Repository [id number] () Date:2018-08-20 08/20/2018 Secondary CHRISTIANO C Eric[place] Insurance:ANTHEMPolic BUTCHERDOB: Community y Number: [id number] Hospital [id number] Repository Date:5885-68-04JF [address], [place] [address]XP: 08/20/2018 Tertiary NOT GIVENUNK [place] Insurance:SELF PAY [facility] Number: Effective Repository Date:2018-08-20 08/07/2018 CHRISTIANO C Primary CHRISTIANO C [place] [id number] DEER Insurance:MEDICARE BUTCHERDOB: Community [place] [address], PART A [facility] [id number] Hospital of [facility] [place] [address]Mkk: Number: Repository [id number] (HP) Date:2018-07-31 08/07/2018 Secondary CHRISTIANO C [place] Insurance:ANTHEMPolic BUTCHERDOB: Community y Number: [id number] Hospital [id number] Repository Date:2902-56-06GS [address] [place] [address] [place] [address]SH: 08/07/2018 Tertiary NOT GIVENUNK Erica Insurance:SELF PAY [facility] Number: Effective Repository Date:2018-08-07 08/06/2018 CHRISTIANO C Primary CHRISTIANO C [place] [id number] DEER Insurance:MEDICARE BUTCHERDOB: [facility], PART A [facility] [id number] Hospital of [facility] [place] [address]Xlo: Number: Repository [id number] (HP) Date:2018-08-06 08/06/2018 Secondary CHRISTIANO C Eric[place] Insurance:ANTHEMPolic BUTCHERDOB: Community y Number: [id number] Hospital [id number] Repository Date:0937-33-02GL [address] [place] [address] [place] [address]ZG: 08/06/2018 Tertiary NOT GIVENUNK Erica Insurance:SELF PAY [facility] Number: Effective Repository Date:2018-08-06 07/26/2018 CHRISTIANO C Primary CHRISTIANO C Eric[place] [id number] [place] Insurance:MEDICARE BUTCHERDOB: [facility], PART A [facility] [id number] [place] [address]Cwm: Number: Repository [id number] (HP) Date:2018-07-25 07/26/2018 Secondary CHRISTIANO C [place] Insurance:ANTHEMPolic BUTCHERDOB: Community y Number: [id number] Hospital [id number] Repository Date:9289-72-69BR [address], [place] [address]BN: 07/26/2018 Tertiary NOT GIVENUNK Erica Insurance:SELF PAY [facility] Number: Effective Repository Date:2018-07-26 07/26/2018 CHRISTIANO C Primary CHRISTIANO C [place] [id number] DEER Insurance:MEDICARE BUTCHERDOB: Community [address] [address], PART A [facility] [id number] Hospital of [facility] [place] [address]Wuw: Number: Repository [id number] (HP) Date:2018-07-25 07/26/2018 Secondary CHRISTIANO C [place] Insurance:ANTHEMPolic BUTCHERDOB: Community y Number: [id number] Hospital [id number] Repository Date:4149-58-82JT [address] [place] [address]ZG: 07/26/2018 Tertiary NOT GIVENUNK Erica Insurance:SELF PAY [facility] Number: Effective Repository Date:2018-07-26 07/26/2018 CHRISTIANO C Primary CHRISTIANO C Eric[place] [id number] [place] Insurance:MEDICARE BUTCHERDOB: Community [place] [address], PART A [facility] [id number] Hospital of [facility] [place] [address]Ktt: Number: Repository [id number] (HP) Date:2018-07-25 07/26/2018 Secondary CHRISTIANO C [place] Insurance:ANTHEMPolic BUTCHERDOB: Community y Number: [id number] Hospital [id number] Repository Date:5620-52-48BJ [address] [place] [address]DG: 07/26/2018 Tertiary NOT GIVENUNK Eric[place] Insurance:SELF PAY [facility] Number: Effective Repository Date:2018-07-26 07/26/2018 CHRISTIANO C Primary CHRISTIANO C Eric[place] [id number] [place] Insurance:MEDICARE BUTCHERDOB: Community [place] [address], PART A [facility] [id number] [place] [address]Yjv: Number: Repository [id number] (HP) Date:2018-07-25 07/26/2018 Secondary CHRISTIANO C Eric[place] Insurance:ANTHEMPolic BUTCHERDOB: Community y Number: [id number] Hospital [id number] Repository Date:0708-10-67UD [address], [place] [address]MM: 07/26/2018 Tertiary NOT GIVENUNK Eric[place] Insurance:SELF PAY [facility] Number: Effective Repository Date:2018-07-26 07/26/2018 CHRISTIANO C Primary CHRISTIANO C [place] [id number] DEER Insurance:MEDICARE BUTCHERDOB: Community [facility], PART A [facility] [id number] Hospital of [place] [address]Bfn: Number: Repository [id number] () Date:2018-07-25 07/26/2018 Secondary CHRISTIANO C [place] Insurance:ANTHEMPolic BUTCHERDOB: Community y Number: [id number] Hospital [id number] Repository Date:0973-98-24KR [address], [place] [address]MD: 07/26/2018 Tertiary NOT GIVENUNK Eric[place] Insurance:SELF PAY [facility] Number: Effective Repository Date:2018-07-25 07/26/2018 CHRISTIANO C Primary CHRISTIANO C [place] [id number] [place] Insurance:MEDICARE BUTCHERDOB: [facility], PART A [facility] [id number] Hospital of [place] [address]Lqu: Number: Repository [id number] () Date:2018-07-25 07/26/2018 Secondary CHRISTIANO C Eric[place] Insurance:ANTHEMPolic BUTCHERDOB: Community y Number: [id number] Hospital [id number] Repository Date:7745-88-05SO [address] [address]PF: 07/26/2018 Tertiary NOT GIVENUNK Eric[place] Insurance:SELF PAY [facility] Number: Effective Repository Date:2018-07-26 07/22/2018 CHRISTIANO C Primary CHRISTIANO C [place] [id number] DEER Insurance:MEDICARE BUTCHERDOB: [facility], PART A [facility] [id number] Hospital of [place] [address]Xlf: Number: Repository [id number] () Date:2018-04-10 07/22/2018 Secondary CHRISTIANO C [place] Insurance:ANTHEMPolic BUTCHERDOB: Community y Number: [id number] Hospital [id number] Repository Date:6786-60-95UC [address] [place] [address]UJ: 07/22/2018 Tertiary NOT GIVENUNK Eric[place] Insurance:SELF PAY [facility] Number: Effective Repository Date:2018-07-22 07/20/2018 CHRISTIANO C Primary CHRISTIANO C [place] [id number] DEER Insurance:MEDICARE BUTCHERDOB: [facility], PART A [facility] [id number] Hospital of [facility] [place] [address]Eia: Number: Repository [id number] () Date:2018-07-20 07/20/2018 Secondary CHRISTIANO C [place] Insurance:ANTHEMPolic BUTCHERDOB: Community y Number: [id number] Hospital [id number] Repository Date:9875-66-95NF [address] [place] [address] [place] [address]UX: 07/20/2018 Tertiary NOT GIVENUNK [place] Insurance:SELF PAY [facility] Number: Effective Repository Date:2018-07-20 07/15/2018 CHRISTIANO C Primary CHRISTIANO C Erica [id number] [place] Insurance:MEDICARE BUTCHERDOB: [facility], PART A [facility] [id number] Hospital of [place] [address]Bnn: Number: Repository [id number] () Date:2018-07-15 07/15/2018 Secondary [place]ST[place]O C [place] [place] Insurance[place]ANTHEMPolic BUTCHERDOB: Community y Number: [id number] [facility] [id number] Repository Date:4331-78-74XG [address], [place] [address]ZJ: 07/15/2018 Tertiary NOT GIVENUNK Erica Insurance:SELF PAY [facility] Number: Effective Repository Date:2018-07-15 07/06/2018 CHRISTIANO C Primary CHRISTIANO C Erica [id number] [place] Insurance:MEDICARE BUTCHERDOB: Community [facility], PART A [facility] [id number] Hospital [place] [address]Ffo: Number: Repository [id number] (HP) Date:2018-07-06 07/06/2018 Secondary CHRISTIANO C [place] Insurance:ANTHEMPolic BUTCHERDOB: Community y Number: [id number] [facility] [id number] Repository Date:0862-81-13DD [address] [place] [address]FJ: 07/06/2018 Tertiary NOT GIVENUNK [place] Insurance:SELF PAY [facility] Number: Effective Repository Date:2018-07-06 06/29/2018 CHRISTIANO C Primary CHRISTIANO C Erica [id number] DE[place] Insurance:MEDICARE BUTCHERDOB: Community [facility], PART A [facility] [id number] Hospital of [facility] [place] [address]Eni: Number: Repository [id number] () Date:2018-06-29 06/29/2018 Secondary CHRISTIANO C [place] Insurance:ANTHEMPolic BUTCHERDOB: Community y Number: [id number] [facility] [id number] Repository Date:2366-68-09RU [address] [place] [address] 21735LD: 06/29/2018 Tertiary NOT GIVENUNK [place] Insurance:SELF PAY [facility] Number: Effective Repository Date:2018-06-29 06/19/2018 CHRISTIANO C Primary CHRISTIANO C Erica [id number] [place] Insurance:MEDICARE BUTCHERDOB: Community [facility], PART A [facility] [id number] [place] [address]Irs: Number: Repository [id number] (HP) Date:2018-06-19 06/19/2018 Secondary CHRISTIANO C Erica Insurance:ANTHEMPolic BUTCHERDOB: Community y Number: [id number] Hospital [id number] Repository Date:4939-57-91QH [address] [place] [address] 99179OG: 06/19/2018 Tertiary NOT GIVENUNK [place] Insurance:SELF PAY [facility] Number: Effective Repository Date:2018-06-19 06/11/2018 CHRISTIANO C Primary CHRISTIANO C [place] [id number] [place] Insurance:MEDICARE BUTCHERDOB: Community [facility], PART A [facility] [id number] Hospital of [facility] [place] [address]Six: Number: Repository [id number] () Date:2018-06-11 06/11/2018 Secondary CHRISTIANO C [place] Insurance:ANTHEMPolic BUTCHERDOB: Community y Number: [id number] Hospital [id number] Repository Date:9617-09-64PX [address] [place] [address] 16997XH: 06/11/2018 Tertiary NOT GIVENUNK Erica Insurance:SELF PAY [facility] Number: Effective Repository Date:2018-06-11 06/04/2018 CHRISTIANO C Primary CHRISTIANO C Erica [id number] [place] Insurance:MEDICARE [facility]CHERD[facility] [id number] Hospital of [facility] [place] [address]Ksm: Number: Repository [id number] () Date:2018-06-04 06/04/2018 Secondary CHRISTIANO C [place] Insurance:ANTHEMPolic BUTCHERDOB: Community y Number: [id number] [facility] [id number] Repository Date:5777-89-91YT [address] [place] [address] 08868WU: 06/04/2018 Tertiary NOT GIVENUNK [place] Insurance:SELF PAY [facility] Number: Effective Repository Date:2018-06-04 05/28/2018 CHRISTIANO C Primary CHRISTIANO C Erica [id number] [place] Insurance:MEDICARE BUTCHERDOB: Community [facility] PART A [facility] [id number] Hospital of [facility] [place] [address]Esz: Number: Repository [id number] () Date:2018-05-28 05/28/2018 Secondary CHRISTIANO C [place] Insurance:ANTHEMPolic BUTCHERDOB: Community y Number: [id number] Hospital [id number] Repository Date:7475-32-99IA [address] [place] [address] 20455HG: 05/28/2018 Tertiary NOT GIVENUNK Erica Insurance:SELF PAY [facility] Number: Effective Repository Date:2018-05-28 05/19/2018 CHRISTIANO C Primary CHRISTIANO C [place] [id number] [place] Insurance:MEDICARE BUTCHERDOB: [facility], PART A [facility] [id number] Hospital of [facility] [place] [address]Pzc: Number: Repository [id number] () Date:2018-05-19 05/19/2018 Secondary CHRISTIANO C [place] Insurance:ANTHEMPolic BUTCHERDOB: Community y Number: [id number] Hospital [id number] Repository Date:9612-10-48UH [address] [place] [address] 01011MO: 05/19/2018 Tertiary NOT GIVENUNK [place] Insurance:SELF PAY [facility] Number: Effective Repository Date:2018-05-19 04/27/2018 CHRISTIANO C Primary CHRISTIANO C [place] [id number] DE[place] Insurance:MEDICARE BUTCHERDOB: [facility], PART A [facility] [id number] Hospital [place] [address]Igl: Number: Repository [id number] () Date:2018-04-27 04/27/2018 Secondary CHRISTIANO C Erica Insurance:ANTHEMPolic BUTCHERDOB: Community y Number: [id number] Hospital [id number] Repository Date:4207-27-24SE [address] [place] [address] 69836DN: 04/27/2018 Tertiary NOT GIVENUNK [place]a Insurance:SELF PAY [facility] Number: Effective Repository Date:2018-04-27 04/10/2018 CHRISTIANO C Primary CHRISTIANO C [place] [id number] [place] Insurance:MEDICARE BUTCHERDOB: Community [facility], PART A [facility] [id number] [place] [address]Tyn: Number: Repository [id number] (HP) Date:2018-01-09 04/10/2018 Secondary CHRISTIANO C Erica Insurance:ANTHEMPolic BUTCHERDOB: Community y Number: [id number] Hospital [id number] Repository Date:2358-72-17EX [address] [address]QZ: 04/10/2018 Tertiary NOT GIVENUNK [place] Insurance:SELF PAY [facility] Number: Effective Repository Date:2018-04-10 04/08/2018 CHRISTIANO C Primary CHRISTIANO C Erica [id number] [place] Insurance:MEDICARE BUTCHERDOB: Community [facility], PART A [facility] [id number] Hospital of [facility] [place] [address]Ngn: Number: Repository [id number] () Date:2018-04-08 04/08/2018 Secondary CHRISTIANO C [place] Insurance:ANTHEMPolic BUTCHERDOB: Community y Number: [id number] Hospital [id number] Repository Date:7419-74-51NW [address] [place] [address] 49583TF: 04/08/2018 Tertiary NOT GIVENUNK [place] Insurance:SELF PAY [facility] Number: Effective Repository Date:2018-04-08 03/24/2018 CHRISTIANO C Primary CHRISTIANO C Erica [id number] [place] Insurance:MEDICARE BUTCHERDOB: Community [facility], PART A [facility] [id number] [place] [address]Qzy: Number: Repository [id number] (HP) Date:2018-03-24 03/24/2018 Secondary CHRISTIANO C [place] Insurance:ANTHEMPolic BUTCHERDOB: Community y Number: [id number] Hospital [id number] Repository Date:4992-36-69RO [address] [place] [address] 075[address]TJ: 03/24/2018 Tertiary NOT GIVENUNK [place]a Insurance:SELF PAY [facility] Number: Effective Repository Date:2018-03-24 03/17/2018 CHRISTIANO C Primary CHRISTIANO C [place] [id number] [place] Insurance:MEDICARE BUTCHERDOB: Community [facility], PART A [facility] [id number] Hospital of [facility] [place] 16[address]Uiq: Number: Repository [id number] () Date:2018-03-17 03/17/2018 Secondary CHRISTIANO C [place] Insurance:ANTHEMPolic BUTCHERDOB: Community y Number: [id number] Hospital [id number] Repository Date:6704-49-55AM [id number] [place] [address] 74164WS: 03/17/2018 Tertiary NOT GIVENUNK [place]a Insurance:SELF PAY [facility] Number: Effective Repository Date:2018-03-17 03/13/2018 CHRISTIANO C Primary CHRISTIANO C Erica [id number] [place] Insurance:MEDICARE [facility]CHERDOB[facility] [id number] Hospital of [facility] [place] [address]Xqk: Number: Repository [id number] () Date:2018-02-13 03/13/2018 Secondary CHRISTIANO C [place] Insurance:ANTHEMPolic BUTCHERDOB: Community y Number: [id number] Hospital [id number] Repository Date:2200-64-97FM [address], [place] [address]KX: 03/13/2018 Tertiary NOT GIVENUNK [place] Insurance:SELF PAY [facility] Number: Effective Repository Date:2018-02-13 03/06/2018 CHRISTIANO C Primary CHRISTIANO C [place] [id number] [place] Insurance:MEDICARE BUTCHERDOB: [facility], PART A [facility] [id number] Hospital of [facility] [place] [address]Unh: Number: Repository [id number] () Date:2018-03-06 03/06/2018 Secondary CHRISTIANO C [place] Insurance:ANTHEMPolic BUTCHERDOB: Community y Number: [id number] Hospital [id number] Repository Date:0465-17-39TL [address] [place] [address] 72086QG: 03/06/2018 Tertiary NOT GIVENUNK [place] Insurance:SELF PAY [facility] Number: Effective Repository Date:2018-03-06 03/03/2018 CHRISTIANO C Primary CHRISTIANO C Erica [id number] [place] Insurance:MEDICARE BUTCHERDOB: [facility], PART A [facility] [id number] Hospital of [facility] [place] [address]Wjp: Number: Repository [id number] () Date:2018-03-03 03/03/2018 Secondary CHRISTIANO C [place] Insurance:ANTHEMPolic BUTCHERDOB: Community y Number: [id number] [id number] Repository Date:1367-89-84WH [address] [place] [address] 56063TF: 03/03/2018 Tertiary NOT GIVENUNK [place] Insurance:SELF PAY [facility] Number: Effective Repository Date:2018-03-03 02/17/2018 CHRISTIANO C Primary CHRISTIANO C Erica [id number] [place] Insurance:MEDICARE BUTCHERDOB: [facility], PART A [facility] [id number] Hospital of [place] 529[address]Gji: Number: Repository [id number] () Date:2018-02-17 02/17/2018 Secondary CHRISTIANO C [place] Insurance:ANTHEMPolic BUTCHERDOB: Community y Number: [id number] Hospital [id number] Repository Date:8967-68-72PC [address] [place] [address] 70391KL: 02/17/2018 Tertiary NOT GIVENUNK Erica Insurance:SELF PAY [facility] Number: Effective Repository Date:2018-02-17 02/13/2018 CHRISTIANO C Primary CHRISTIANO C Erica [id number] [place] Insurance:MEDICARE BUTCHERDOB: [facility] [id number] Hospital of [place] [address]Mxc: Number: Repository [id number] (HP) Date:2018-01-23 02/13/2018 Secondary CHRISTIANO C Erica Insurance:ANTHEMPolic BUTCHERDOB: Community y Number: [id number] Hospital [id number] Repository Date:5830-38-07SS [address] [place] [address] 40162GJ: 02/13/2018 Tertiary NOT GIVENUNK [place] Insurance:SELF PAY [facility] Number: Effective Repository Date:2018-01-27 02/10/2018 CHRISTIANO C Primary CHRISTIANO C Erica [id number] [place] Insurance:MEDICARE BUTCHERDOB: Community [facility], PART A [facility] [id number] Hospital of [facility] [place] 11586Cge: Number: Repository [id number] (HP) Date:2018-02-10 02/10/2018 Secondary CHRISTIANO C [place] Insurance:ANTHEMPolic BUTCHERDOB: Community y Number: [id number] Hospital [id number] Repository Date:2650-21-65WO [address] [place] [address] 08504OI: 02/10/2018 Tertiary NOT GIVENUNK [place] Insurance:SELF PAY [facility] Number: Effective Repository Date:2018-02-10 02/09/2018 CHRISTIANO C Primary CHRISTIANO C Erica [id number] [place] Insurance:MEDICARE BUTCHERDOB: Community [facility], PART A [facility] [id number] [place] [address]Muw: Number: Repository [id number] (HP) Date:2018-02-09 02/09/2018 Secondary CHRISTIANO C [place] Insurance:ANTHEMPolic BUTCHERDOB: Community y Number: [id number] Hospital [id number] Repository Date:0138-50-81JD [address] [place] [address] 35552RI: 02/09/2018 Tertiary NOT GIVENUNK [place] Insurance:SELF PAY [facility] Number: Effective Repository Date:2018-02-09 02/06/2018 CHRISTIANO C Primary CHRISTIANO C [place] [id number] DEER Insurance:MEDICARE BUTCHERDOB: [facility], PART A [facility] [id number] Hospital of [place] [address]1624Qth: Number: Repository [id number] () Date:2018-02-06 02/06/2018 Secondary CHRISTIANO C [place] Insurance:ANTHEMPolic BUTCHERDOB: Community y Number: [id number] Hospital [id number] Repository Date:3884-55-28NT [address] [place] [address] 60417CA: 02/06/2018 Tertiary NOT GIVENUNK [place] Insurance:SELF PAY [facility] Number: Effective Repository Date:2018-02-06 01/25/2018 CHRISTIANO C Primary CHRISTIANO C [place] [id number] DEER Insurance:MEDICARE BUTCHERDOB: [facility], PART A [facility] [id number] Hospital of [facility] [place] 48[address]Jyr: Number: Repository [id number] () Date:2018-01-25 01/25/2018 Secondary CHRISTIANO C [place] Insurance:ANTHEMPolic BUTCHERDOB: Community y Number: [id number] Hospital [id number] Repository Date:4036-30-84EI [address] [place] [address] 20009QN: 01/25/2018 Tertiary NOT GIVENUNK [place] Insurance:SELF PAY [facility] Number: Effective Repository Date:2018-01-25 01/25/2018 CHRISTIANO C Primary CHRISTIANO C Erica [id number] [place] Insurance:MEDICARE BUTCHERDOB: [facility], PART A [facility] [id number] Hospital of [facility] [place] 805[address]Mjp: Number: Repository [id number] () Date:2018-01-25 01/25/2018 Secondary CHRISTIANO C [place] Insurance:ANTHEMPolic BUTCHERDOB: Community y Number: [id number] [id number] Repository Date:7521-97-77CZ [address] [place] [address] 78764ZH: 01/25/2018 Tertiary NOT GIVENUNK [place] Insurance:SELF PAY [facility] Number: Effective Repository Date:2018-01-25 01/25/2018 CHRISTIANO C Primary CHRISTIANO C [place] [id number] DEER Insurance:MEDICARE BUTCHERDOB: [facility], PART A [facility] [id number] Hospital of [facility] [place] 12868Xfe: Number: Repository [id number] () Date:2018-01-25 01/25/2018 Secondary CHRISTIANO C [place] Insurance:ANTHEMPolic BUTCHERDOB: Community y Number: [id number] [id number] Repository Date:5636-13-90UN [address], [place] [address]XZ: 01/25/2018 Tertiary NOT GIVENUNK [place] Insurance:SELF PAY [facility] Number: Effective Repository Date:2018-01-25 01/23/2018 CHRISTIANO C Primary CHRISTIANO C [place] [id number] [place] Insurance:MEDICARE [facility]CHERDOB[facility] [id number] Number: Repository [id number]: 330 [id number] [phone] () Date:2017-10-25 01/23/2018 Secondary CHRISTIANO C [place] Insurance:ANTHEMPolic BUTCHERDOB: Community y Number: [id number] Hospital [id number] Repository Date:6323-13-78OB [address] [place] [address] 21408AX: 01/23/2018 Tertiary NOT GIVENUNK [place]a Insurance:SELF PAY [facility] Number: Effective Repository Date:2017-12-12 01/22/2018 CHRISTIANO C Primary CHRISTIANO C Erica [id number] [place] Insurance:MEDICARE BUTCHERDOB: Community [facility] [id number] Hospital of [facility] [place] 67[address]Xbp: Number: Repository [id number] (HP) Date:2018-01-22 01/22/2018 Secondary CHRISTIANO C [place] Insurance:ANTHEMPolic BUTCHERDOB: Community y Number: [id number] Hospital [id number] Repository Date:6222-07-23KD [address] [place] [address] 82429CY: 01/22/2018 Tertiary NOT GIVENUNK [place] Insurance:SELF PAY [facility] Number: Effective Repository Date:2018-01-22 01/15/2018 CHRISTIANO C Primary CHRISTIANO C Erica [id number] [place] Insurance:MEDICARE BUTCHERDOB: Community [facility] A [facility] [id number] Hospital of [facility] [place] 40[address]Eqf: Number: Repository [id number] () Date:2018-01-15 01/15/2018 Secondary CHRISTIANO C [place] Insurance:ANTHEMPolic BUTCHERDOB: Community y Number: [id number] Hospital [id number] Repository Date:4569-48-86XQ [address] [place] [address] 48709PB: 01/15/2018 Tertiary NOT GIVENUNK [place] Insurance:SELF PAY [facility] Number: Effective Repository Date:2018-01-15 01/09/2018 CHRISTIANO C Primary CHRISTIANO C [place] [id number] DEER Insurance:MEDICARE BUTCHERDOB: Community [facility], PART A [facility] [id number] Hospital of [place] 40778Bnf: Number: Repository [id number] () Date:2017-10-15 01/09/2018 Secondary CHRISTIANO C [place] Insurance:ANTHEMPolic BUTCHERDOB: Community y Number: [id number] Hospital [id number] Repository Date:8214-57-63ZX [address]FFKK, [place] [address]CW: 01/09/2018 Tertiary NOT GIVENUNK [place] Insurance:SELF PAY [facility] Number: Effective Repository Date:2018-01-09 12/30/2017 CHRISTIANO C Primary CHRISTIANO C [place] [id number] DEER Insurance:MEDICARE BUTCHERDOB: [facility], PART A [facility] [id number] Hospital of [place] 514[address]Wew: Number: Repository [id number] () Date:2017-12-30 12/30/2017 Secondary CHRISTIANO C [place] Insurance:ANTHEMPolic BUTCHERDOB: Community y Number: [id number] [id number] Repository Date:2094-02-90XV [address] [place] [address]LA: 12/30/2017 Tertiary NOT GIVENUNK [place] Insurance:SELF PAY [facility] Number: Effective Repository Date:2017-12-30 12/29/2017 CHRISTIANO C Primary CHRISTIANO C [place] [id number] DEER Insurance:ANTHEMPolic BUTCHERDOB: [facility], y Number: [id number] Hospital of [facility] [place] 727[address]Yxg: [id number] Repository Date:3700-56-00SS [address]VHEXZGS, [place] [address]LC: 12/29/2017 Secondary CHRISTIANO C Erica Insurance:MEDICARE BUTCHERDOB: Community PART A [facility] [id number] Hospital Number: Repository [id number] Date:2017-09-05 12/29/2017 Tertiary NOT GIVENUNK [place] Insurance:SELF PAY [facility] Number: Effective Repository Date:2017-09-05 12/16/2017 CHRISTIANO C Primary CHRISTIANO C [place] [id number] DEER Insurance:MEDICARE BUTCHERDOB: [facility], PART A [facility] [id number] Hospital of [facility] [place] 50[address]Lua: Number: Repository [id number] () Date:2017-12-16 12/16/2017 Secondary CHRISTIANO C [place] Insurance:ANTHEMPolic BUTCHERDOB: Community y Number: [id number] Hospital [id number] Repository Date:7380-47-00YZ [address] [place] [address] 69112EN: 12/16/2017 Tertiary NOT GIVENUNK [place] Insurance:SELF PAY [facility] Number: Effective Repository Date:2017-12-16 12/12/2017 CHRISTIANO C Primary CHRISTIANO C [place] [id number] DEER Insurance:MEDICARE BUTCHERDOB: [facility], PART A [facility] [id number] Hospital of [facility] [place] [address]Nxa: Number: Repository [id number] () Date:2017-12-11 12/12/2017 Secondary CHRISTIANO C [place] Insurance:ANTHEMPolic BUTCHERDOB: Community y Number: [id number] Hospital [id number] Repository Date:8046-06-60KK [address], [place] [address]LU: 12/12/2017 Tertiary NOT GIVENUNK [place] Insurance:SELF PAY [facility] Number: Effective Repository Date:2017-12-12 11/25/2017 CHRISTIANO C Primary CHRISTIANO C [place] [id number] DEER Insurance:MEDICARE BUTCHERDOB: [facility], PART A [facility] [id number] Hospital of [facility] [place] 537[address]Tiq: Number: Repository [id number] () Date:2017-11-25 11/25/2017 Secondary CHRISTIANO C [place] Insurance:ANTHEMPolic BUTCHERDOB: Community y Number: [id number] Hospital [id number] Repository Date:5347-77-27OG [address]WJRTVMK, [place] [address]WX: 11/25/2017 Tertiary NOT GIVENUNK [place] Insurance:SELF PAY [facility] Number: Effective Repository Date:2017-11-25 11/14/2017 CHRISTIANO C Primary CHRISTIANO C [place] [id number] DEER Insurance:MEDICARE BUTCHERDOB: [facility], PART A [facility] [id number] Hospital of [place] 267[address]Gyy: Number: Repository [id number] (HP) Date:2017-11-14 11/14/2017 Secondary CHRISTIANO C Eric[place] Insurance:ANTHEMPolic BUTCHERDOB: Community y Number: [id number] [facility] [id number] Repository Date:2085-44-68LH [address]UVVXSV, [place] [address]YY: 11/14/2017 Tertiary NOT GIVENUNK [place] Insurance:SELF PAY [facility] Number: Effective Repository Date:2017-11-14 11/11/2017 CHRISTIANO C Primary CHRISTIANO C Erica [id number] [place] Insurance:MEDICARE BUTCHERDOB: [facility], PART A [facility] [id number] Hospital of [facility] [place] 6[address]Uhh: Number: Repository [id number] (HP) Date:2017-11-11 11/11/2017 Secondary CHRISTIANO C Erica Insurance:ANTHEMPolic BUTCHERDOB: Community y Number: [id number] Hospital [id number] Repository Date:0982-21-86ST [address]HRJCB, [place] [address]KL: 11/11/2017 Tertiary NOT GIVENUNK Eric[place] Insurance:SELF PAY [facility] Number: Effective Repository Date:2017-11-11 11/07/2017 CHRISTIANO C Primary CHRISTIANO C Erica [id number] [place] Insurance:MEDICARE [facility]CHERDOB[facility] [id number] Hospital of [facility] [place] [address]Dxi: Number: Repository [id number] (HP) Date:2017-10-28 11/07/2017 Secondary CHRISTIANO C [place] Insurance:ANTHEMPolic BUTCHERDOB: Community y Number: [id number] Hospital [id number] Repository Date:8305-62-63ZI [address]JXWOGDK [place] [address]UE: 11/07/2017 Tertiary NOT GIVENUNK [place] Insurance:SELF PAY [facility] Number: Effective Repository Date:2017-10-28 10/31/2017 CHRISTIANO C Primary CHRISTIANO C Erica [id number] DE[place] Insurance:MEDICARE BUTCHERDOB: [facility], PART A [facility] [id number] Hospital of [place] [address]Rsr: Number: Repository [id number] (HP) Date:2017-10-28 10/31/2017 Secondary CHRISTIANO C [place] Insurance:ANTHEMPolic BUTCHERDOB: Community y Number: [id number] Hospital [id number] Repository Date:8173-30-10NS [address]HRCH[address] [place] [address]CB: 10/31/2017 Tertiary NOT GIVENUNK Erica Insurance:SELF PAY [facility] Number: Effective Repository Date:2017-10-28 10/28/2017 CHRISTIANO C Primary CHRISTIANO C [place] [id number] DEER Insurance:MEDICARE BUTCHERDOB: [facility] A [id number] [id number]: Number: Repository [id number] (HP) Date:1998-12-21 10/28/2017 Secondary CHRISTIANO C [place] Insurance:ANTHEMPolic BUTCHERDOB: Community y Number: [id number] [id number] Repository Date:[id number], [place] [address]IL: 10/28/2017 Tertiary NOT GIVENUNK Erica Insurance:SELF PAY [facility] Number: Effective Repository Date:2017-10-28 10/28/2017 CHRISTIANO C Primary CHRISTIANO C Erica [id number] DEER Insurance:MEDICARE BUTCHERDOB: [facility] [id number] [place] [address]Asr: Number: Repository [id number] (HP) Date:1998-12-21 10/28/2017 Secondary CHRISTIANO C [place] Insurance:ANTHEMPolic BUTCHERDOB: Community y Number: [id number] [id number] Repository Date:[id number] [place] [address]: 10/28/2017 Tertiary NOT GIVENUNK Erica Insurance:SELF PAY [facility] Number: Effective Repository Date:2017-08-20 10/27/2017 CHRISTIANO C Primary CHRISTIANO C Erica [id number] [place] Insurance:MEDICARE BUTCHERDOB: [facility], [facility] [id number] [facility] [place] [address]Gir: Number: Repository [id number] (HP) Date:2017-10-27 10/27/2017 Secondary CHRISTIANO C [place] Insurance:ANTHEMPolic BUTCHERDOB: Community y Number: [id number] [id number] Repository Date:[id number], [place] [address]UR: 10/27/2017 Tertiary NOT GIVENUNK [place] Insurance:SELF PAY [facility] Number: Effective Repository Date:2017-10-27 10/07/2017 CHRISTIANO C Primary CHRISTIANO C Erica [id number] [place] Insurance:MEDICARE BUTCHERDOB: [facility] [id number] [place] [address]Jhr: Number: Repository [id number] () Date:2017-08-28 10/07/2017 Secondary CHRISTIANO C [place] Insurance:ANTHEMPolic BUTCHERDOB: Community y Number: [id number] [id number] Repository Date:[id number], [place] [address]WP: 10/07/2017 Tertiary NOT GIVENUNK [place] Insurance:SELF PAY [facility] Number: Effective Repository Date:2017-08-28
== END ==
PROVIDERS: Family Provider Family Medicine; PCP Family Medicine; Visit Provider Internal Medicine Cardiovascular Disease
DX: I48.92 Unspecified atrial flutter (principal); I48.0 Paroxysmal atrial fibrillation; Z79.01 Long term (current) use of anticoagulants
CPT/HCPCS: 36415; 85610

== ENCOUNTER → 2018-10-12 11:20 | Outpatient (CLI) | payer MEDICARE, BC, SELFPAY ==
[2018-08-07 13:45] VITALS: BMI 28.1
[2018-10-12 11:43] LABS: International Normalized Ratio 3.2; Prothrombin Time (Protime)PT. 33.2 SECONDS (11.7-14.9)
--- OUTSIDE RECORDS SUMMARY | 2018-12-14 22:31 | XMS RPT_ITS ---
:1940 Author Organization OHIP Support Name Relationship Address Phone R Unavailable Unavailable Unavailable LADONNA GELLER Unavailable [address] + [place] [address] R Unavailable Unavailable Unavailable LADONNA GELLER Unavailable [address] + [place] [address] R Unavailable Unavailable Unavailable LADONNA GELLER Unavailable [address] + [place] [address] R Unavailable Unavailable Unavailable LADONNA GELLER Unavailable [address] + [place] [address] R Unavailable Unavailable Unavailable LADONNA GELLER Unavailable [address] + [place] [address] R Unavailable Unavailable Unavailable LADONNA GELLER Unavailable [address] + [place] [address] R Unavailable Unavailable Unavailable LADONNA GELLER Unavailable [address] + [place] [address] R Unavailable Unavailable Unavailable LADONNA GELLER Unavailable [address] + [place] [address] R Unavailable Unavailable Unavailable LADONNA GELLER Unavailable [address] + [place] [address] R Unavailable Unavailable Unavailable LADONNA GELLER Unavailable [address] + [place] [address] R Unavailable Unavailable Unavailable LADONNA GELLER Unavailable [address] + [place] [address] R Unavailable Unavailable Unavailable LADONNA GELLER Unavailable [address] + [place] [address] R Unavailable Unavailable Unavailable LADONNA GELLER Unavailable [address] + [place] [address] R Unavailable Unavailable Unavailable LADONNA GELLER Unavailable [address] + [place] [address] R Unavailable Unavailable Unavailable LADONNA GELLER Unavailable [address] + [place] [address] R Unavailable Unavailable Unavailable LADONNA GELLER Unavailable [address] + [place] [address] R Unavailable Unavailable Unavailable LADONNA GELLER Unavailable [address] + [place] [address] R Unavailable Unavailable Unavailable LADONNA GELLER Unavailable [address] + [place] [address] R Unavailable Unavailable Unavailable LADONNA GELLER Unavailable [address] + [place] [address] R Unavailable Unavailable Unavailable LADONNA GELLER Unavailable [address] + [place] [address] R Unavailable Unavailable Unavailable LADONNA GELLER Unavailable [address] + [place] [address] R Unavailable Unavailable Unavailable LADONNA GELLER Unavailable [address] + [place] [address] R Unavailable Unavailable Unavailable LADONNA GELLER Unavailable [address] + [place] [address] R Unavailable Unavailable Unavailable LADONNA GELLER Unavailable [address] + [place] [address] R Unavailable Unavailable Unavailable LADONNA GELLER Unavailable [address] + [place] [address] R Unavailable Unavailable Unavailable LADONNA GELLER Unavailable [address] + [place] [address] R Unavailable Unavailable Unavailable LADONNA GELLER Unavailable [address] + [place] [address] R Unavailable Unavailable Unavailable LADONNA GELLER Unavailable [address] + [place] [address] R Unavailable Unavailable Unavailable LADONNA GELLER Unavailable [address] + [place] [address] R Unavailable Unavailable Unavailable LADONNA GELLER Unavailable [address] + [place] [address] R Unavailable Unavailable Unavailable LADONNA GELLER Unavailable [address] + [place] [address] R Unavailable Unavailable Unavailable LADONNA GELLER Unavailable [address] + [place] [address] R Unavailable Unavailable Unavailable LADONNA GELLER Unavailable [address] + [place] [address] R Unavailable Unavailable Unavailable LADONNA GELLER Unavailable [address] + [place] [address] R Unavailable Unavailable Unavailable LADONNA GELLER Unavailable [address] + [place] [address] R Unavailable Unavailable Unavailable LADONNA GELLER Unavailable [address] + [place] [address] R Unavailable Unavailable Unavailable LADONNA GELLER Unavailable [address] + [place] [address] R Unavailable Unavailable Unavailable LADONNA GELLER Unavailable [address] + [place] [address] R Unavailable Unavailable Unavailable LADONNA GELLER Unavailable [address] + [place] [address] R Unavailable Unavailable Unavailable LADONNA GELLER Unavailable [address] + [place] [address] R Unavailable Unavailable Unavailable LADONNA GELLER Unavailable [address] + [place] [address] R Unavailable Unavailable Unavailable LADONNA GELLER Unavailable [address] + [place] [address] R Unavailable Unavailable Unavailable LADONNA GELLER Unavailable [address] + [place] [address] R Unavailable Unavailable Unavailable LADONNA GELLER Unavailable . + [place] [address] R Unavailable Unavailable Unavailable LADONNA GELLER Unavailable . + [place] [address] R Unavailable Unavailable Unavailable LADONNA GELLER Unavailable . + [place] [address] R Unavailable Unavailable Unavailable YIMI LADONNA Unavailable . + [place] [address] R Unavailable Unavailable Unavailable YIMI LADONNA Unavailable . + [place] [address] R Unavailable Unavailable Unavailable YIMI LADONNA Unavailable NA + [place], [place] R Unavailable Unavailable Unavailable YIMI, LADONNA Unavailable . + [place] [address] R Unavailable Unavailable Unavailable YIMI LADONNA Unavailable . + [place] [address] R Unavailable Unavailable Unavailable YIMI LADONNA Unavailable [...] Name Role Phone Carlos Mcallister Attending Unavailable [facility] Care Unavailable Carlos Mcallister Attending Unavailable [facility] Care Unavailable Carlos Mcallister Attending Unavailable [facility] Unavailable Carlos Mcallister Attending Unavailable [facility] Care Unavailable Carlos Mcallister Attending Unavailable [facility] Care Unavailable Carlos Mcallister Attending Unavailable [facility] Care Unavailable Ciara Arambula Attending Unavailable [facility] Care Unavailable Ciara Arambula Referring Unavailable Carlos Mcallister Attending Unavailable [facility] Referring Unavailable Carlos Mcallister Attending Unavailable Ranney, Christopher Primary Care Unavailable Isckarus, Ciara Attending Unavailable Isckarus, Ninfaour Referring Unavailable Rancomstock, [place] Primary Care Unavailable IsckarusCiara Consulting Unavailable Isckarus, Ciara Attending Unavailable Isckarus, Mansour Referring Unavailable Rancomstock, [place] Primary [facility] Unavailable Isckarus, Ciara Attending Unavailable Isckarus, Mansour Referring Unavailable Rancomstock, [place] [facility] Unavailable MoodisCarlos scott Attending Unavailable Rancomstock, [place] [facility] Unavailable Moodispabradley, Carlos Attending Unavailable Rancomstock, [place] [facility] Unavailable Rancomstock, Christopher Attending Unavailable Rancomstock, [place] [facility] Unavailable MoodisCarlos scott Attending Unavailable [place], [place] [facility] Unavailable My Matthews Attending Unavailable [facility], [facility] [place] Referring Unavailable Rancomstock, [place] Primary [facility] Unavailable MoodisCarlos scott Attending Unavailable Rancomstock, [place] Primary [facility] Unavailable MoodisCarlos scott Attending Unavailable [facility], [place] [facility] Unavailable Angelica Kim Attending Unavailable Rancom[place], [place] Referring Unavailable PhillipCarly johnosn Attending Unavailable MoodCarlos montesinos Attending Unavailable [place], [place] [facility] Unavailable Devin Gamboa Attending Unavailable [place], [facility] [place] Referring Unavailable [facility], [place] [facility] Unavailable [facility], [place] [facility] Unavailable Ashelfah, Ghasem Admitting Unavailable Thang Ramirez Attending Unavailable Ashelfah, Ghasem Admitting Unavailable Ashelfah, Ghasem Attending Unavailable [place], [place] [facility] Unavailable Ashelfah, Ghasem Consulting Unavailable Ashelfah, Ghasem Admitting Unavailable Thang Ramirez Attending Unavailable [place], [place] [facility] Unavailable Thang Ramirez Consulting Unavailable MoodispaCarlos huerta Attending Unavailable [place], [place] [facility] Unavailable PhillipCarly johnson Attending Unavailable MoodisCarlos scott Attending Unavailable [place], [place] [facility] Unavailable Devin Gamboa Attending Unavailable [place], [facility] [place] Referring Unavailable Ran[place], [place] [facility] Unavailable MoodCarlos montesinos Attending Unavailable Ran[place], [place] [facility] Unavailable MoodCarlos montesinos Attending Unavailable [place], [place] [facility] Unavailable Carly Phillip Attending Unavailable Devin Gamboa Attending Unavailable Ran[place], [facility], [place] Referring Unavailable MoodisCarlos scott Attending Unavailable [facility] Unavailable Moodispaw, Carlos Attending Unavailable [facility] Care Unavailable Moodispaw, Carlos Attending Unavailable [facility] Care Unavailable Angelica Kim Attending Unavailable [facility] Referring Unavailable [facility] Care Unavailable Moodispaw, Carlos Attending Unavailable [facility] Care Unavailable Moodispaw, Carlos Attending Unavailable [facility] Care Unavailable Moodispaw, Carlos Attending Unavailable [facility] Care Unavailable Moodispaw, Carlos Attending Unavailable [facility] Care Unavailable [facility] Carlos Attending Unavailable [facility] Care Unavailable [facility] Attending Unavailable Moodispaw, Carlos Attending Unavailable [facility] Unavailable Moodispaw, Carlos Attending Unavailable [facility] Unavailable [facility], Carlos Attending Unavailable [facility] Care Unavailable [facility], Carlos Attending Unavailable [facility] Care Unavailable Angelica Kim Attending Unavailable [facility] Referring Unavailable [facility] Unavailable AgyepongRichie Admitting Unavailable Stephen, Otilio Consulting Unavailable KittoThang garcía Attending Unavailable AgyepongRichie Admitting Unavailable AgyepongRichie Attending Unavailable [facility] Unavailable DamienelfMartha brush Consulting Unavailable Agyepong, Richie Admitting Unavailable KittoThang garcía Attending Unavailable [facility] Unavailable Stephen, Otilio Consulting Unavailable KittoeThang Consulting Unavailable AgyepongRichie Admitting Unavailable Moodispaw, Carlos Attending Unavailable [facility] Unavailable Stephen, Otilio Consulting Unavailable KittoeThang Consulting Unavailable Agyepong, Richie Admitting Unavailable KittoThang garcía Attending Unavailable [facility] Care Unavailable Stephen, [place] Consulting Unavailable KittoeThang Consulting Unavailable Moodispaw, Carlos Attending Unavailable [facility] Care Unavailable My Matthews Attending Unavailable Otilio Mitchell Attending Unavailable AgRichie akbar Referring Unavailable Moodispaw, Carlos Attending Unavailable [facility] Care Unavailable Moodispaw, Carlos Attending Unavailable Michael Muse Primary Care Unavailable Angelica Kim Attending Unavailable Michael Muse Referring Unavailable Michael Muse Primary Care Unavailable PROBLEMS PROBLEMS DATE TYPE CONDITION / CODE ATTENDING STATUS SOURCE 10/15/2018 Unknown I48.92 - Unspecified Carlos Mcallister [facility] atrial flutter / Community I48.92(ICD-10) Hospital Repository 10/15/2018 Unknown I48.0 - Paroxysmal MoodisCarlos scott Active [place] atrial fibrillation Community / I48.0(ICD-10) Hospital Repository 10/15/2018 Unknown Z79.01 - snf MoodCarlos montesinos Active [facility] (current) use of Community anticoagulants / Hospital Z79.01(ICD-10) Repository 08/07/2018 Unknown N18.9 - Chronic My Matthews Active [place] kidney disease, [facility] unspecified / Hospital N18.9(ICD-10) Repository 08/07/2018 Unknown D63.1 - Anemia in My Matthews Active [facility] chronic kidney Community disease / Hospital D63.1(ICD-10) Repository 08/06/2018 Unknown I21.3 - ST elevation Carlos Mcallister Active [facility] (STEMI) myocardial Community infarction of Hospital unspecified site / Repository I21.3(ICD-10) 08/06/2018 Unknown I48.1 - Persistent MoodisCarlos scott Active [facility] atrial fibrillation Community / I48.1(ICD-10) Hospital Repository 08/11/2018 Unknown I42.0 - Dilated Stephen, Otilio Active [place] cardiomyopathy / Community I42.0(ICD-10) Hospital Repository 08/11/2018 Unknown R55 - Syncope and Stephen, [place] Active [facility] collapse / Community R55(ICD-10) Hospital Repository 08/11/2018 Unknown I50.43 - Acute on Stephen, [place] Active [facility] chronic combined Community systolic Hospital (congestive) and Repository diastolic (congestive) heart failure / I50.43(ICD-10) 08/11/2018 Unknown Z95.810 - Presence Stephen, Otilio Active [facility] of automatic Community (implantable) Hospital cardiac Repository defibrillator / Z95.810(ICD-10) 02/13/2018 Unknown I50.22 - Chronic Gamboa, Active [place] systolic Devin [facility] (congestive) heart Hospital failure / Repository I50.22(ICD-10) 11/21/2017 Unknown 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, 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 / [facility] D47.2(ICD-10) Hospital Repository 11/21/2017 Unknown Z01.818 - Encounter Isckarus, Active [place] for other [facility] preprocedural Hospital examination / Repository Z01.818(ICD-10) 11/21/2017 Unknown D69.6 - Isckarus, Active [place] Thrombocytopenia, [facility] unspecified / Hospital D69.6(ICD-10) Repository 11/21/2017 Unknown D61.818 - Other Isckarus, Active [facility] pancytopenia / [facility] D61.818(ICD-10) Hospital Repository 11/21/2017 Unknown D64.9 - Anemia, Isckarus, Active [facility] unspecified / [facility] D64.9(ICD-10) Hospital Repository 11/18/2017 Unknown I50.82 - [place] Kim Active [facility] Biventricular heart Community failure / Hospital I50.82(ICD-10) Repository 11/18/2017 Unknown I47.2 - Ventricular JulioAngelica newell Active [place] tachycardia / Community I47.2(ICD-10) Hospital Repository PROCEDURES PROCEDURES No Procedure Records FoundRESULTS RESULTS PROTIME W/INR Collected: 10/15/2018 Status: F Source: [place] F[place] 10:29 AM [facility] REPOSITORY TYPE CODE TESTS RESULT OUT OF REFERENCE UNITS RANGE LAB L9200.1001 11.9-14.4 SEC High PROTIME ISTAT 23.7 Result Comment: Reference Range 11.9 - 14.4 LAB L9200.2000 Normal INR ISTAT 2.00 Result Comment: Critical Value > 3.5 Performed By: #### L9200.0000 #### [facility] Laboratory Point of Care [address] [place], [place] [address] PROTHROMBIN TIME W/INR Collected: 10/12/2018 Status: F Source: [place] 10:45 AM [facility] REPOSITORY TYPE CODE TESTS RESULT OUT OF RANGE REFERENCE UNITS LAB L300.4150 11.7-14.9 SECONDS High PROTIME 33.2 LAB L300.4200 Normal INR 3.2 Performed By: #### L300.3900 #### [facility] Laboratory [address] [place], [address] PROTHROMBIN TIME W/INR Collected: 10/09/2018 Status: F Source: [place] 12:00 PM [facility] REPOSITORY TYPE CODE TESTS RESULT OUT OF REFERENCE UNITS RANGE LAB L300.4150 11.7-14.9 SECONDS High PROTIME 46.0 LAB L300.4200 High alert INR 4.9 Result Comment: CRITICAL VALUE VERIFIED. CALLED TO ALIRIO AT 'S OFFICE. 10/09/18 1244 Steven Chavez. RESULTS READ BACK BY SAME. Performed By: #### L300.3900 #### [facility] [address] [place], [address] PROTHROMBIN TIME W/INR Collected: 10/07/2018 Status: F Source: [place] 11:00 AM [facility] REPOSITORY Order Comment: Comments: STANDING ORDER-HOMEBOUND Comments: STANDING ORDER-HOMEBOUND TYPE CODE TESTS RESULT OUT OF REFERENCE UNITS RANGE LAB L300.4150 11.7-14.9 SECONDS High PROTIME 42.9 LAB L300.4200 High alert INR 4.5 Result Comment: CRITICAL VALUE VERIFIED. CALLED TO RENETTA AT 'S OFFICE. 10/07/18 1137 Steven Chavez. RESULTS READ BACK BY SAME. Performed By: #### L300.3900 #### [facility] [address] [place], [address] PROTHROMBIN TIME W/INR Collected: 10/05/2018 Status: F Source: [place] 10:45 AM [facility] REPOSITORY Order Comment: Result obtained is for [...] RITA . Performed By: #### L300.3900 #### [facility] [address] [place], [address] PROTIME W/INR Collected: 10/05/2018 Status: F Source: [place] 10:35 AM [facility] REPOSITORY Order Comment: This critical result is preliminary and not confirmed. Venous sample sent to main laboratory for confirmation. A call with confirmation result will follow. See specimen #: [id number] for confirmation result. SPOKE WITH MINI AT [facility] 10/05/18 1117 RHICKS. TYPE CODE TESTS RESULT OUT OF REFERENCE UNITS RANGE LAB L9200.1001 11.9-14.4 SEC High PROTIME ISTAT 58.1 Result Comment: Reference Range 11.9 - 14.4 LAB L9200.2000 High alert INR ISTAT 5.20 Result Comment: Critical Value > 3.5 Performed By: #### L9200.0000 #### [facility] Laboratory Point of Care [address] [place] [address] PROTIME W/INR Collected: 09/28/2018 Status: F Source: [place] FINGER[place]ICK 10:46 AM [facility] REPOSITORY TYPE CODE TESTS RESULT OUT OF REFERENCE UNITS RANGE LAB L9200.1001 11.9-14.4 SEC High PROTIME ISTAT 30.3 Result Comment: Reference Range 11.9 - 14.4 LAB L9200.2000 Normal INR ISTAT 2.60 Result Comment: Critical Value > 3.5 Performed By: #### L9200.0000 #### [facility] Laboratory Point of Care [address] [place] [address] PROTIME W/INR Collected: 09/18/2018 Status: F Source: [place] FINGER[place] 10:31 AM [facility] REPOSITORY TYPE CODE TESTS RESULT OUT OF REFERENCE UNITS RANGE LAB L9200.1001 11.9-14.4 SEC High PROTIME ISTAT 16.1 Result Comment: Reference Range 11.9 - 14.4 LAB L9200.2000 Normal INR ISTAT 1.40 Result Comment: Critical Value > 3.5 Performed By: #### L9200.0000 #### [facility] Laboratory Point of Care [address] [place] [address] PROTIME W/INR Collected: 08/27/2018 Status: F Source: [place] 10:36 AM [facility] REPOSITORY TYPE CODE TESTS RESULT OUT OF REFERENCE UNITS RANGE LAB L9200.1001 11.9-14.4 SEC High PROTIME ISTAT 23.2 Result Comment: Reference Range 11.9 - 14.4 LAB L9200.2000 Normal INR ISTAT 2.00 Result Comment: Critical Value > 3.5 Performed By: #### L9200.0000 #### [facility] Laboratory Point of Care [address] [place] [address] CBC W/DIFF, AUTOMATED Collected: 08/20/2018 Status: F Source: [place] 10:30 AM [facility] REPOSITORY TYPE CODE TESTS RESULT OUT OF [...] Performed By: #### L100.0100 #### [facility] [address] [place], [address] PROTHROMBIN TIME W/INR Collected: 08/20/2018 Status: F Source: [place] 10:30 AM [facility] REPOSITORY Order Comment: Comments: STANDING ORDER/PATIENT IS HOME BOUND Comments: STANDING ORDER/PATIENT IS HOME BOUND TYPE CODE TESTS RESULT OUT OF REFERENCE UNITS RANGE LAB L300.4150 11.7-14.9 SECONDS High PROTIME 43.9 LAB L300.4200 High alert INR 4.6 Result Comment: CRITICAL VALUE VERIFIED. CALLED TO JOE AT [facility] 08/20/18 1108 Francisca Mayberry. RESULTS READ BACK BY SAME . Performed By: #### L300.3900 #### [facility] [address] [place], [address] CARDIOLOGY VISIT Observed: 08/07/2018 Status: F Source: [place] REPORT 4:16 PM [facility] REPOSITORY [facility] [address] [place] [address] OFFICE VISIT Date of Service: 08/07/18 MR#: [id number] Acct: [id number] Name: CHRISTIANO VALVERDE Rep #: [id number] : 1940 Provider: VAHID Matthews Age/Sex: 78/F Location: [facility] Status: Signed HPI HPI Details: CHRISTIANO VALVERDE, is a 78 F who presents to the office today for a cardiovascular follow-up. 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 Patient was admitted to [facility] in July 2018 for syncopal [...] it caused renal failure. thyroid, pork [From [place] Thyroid] Allergy (Severe, Verified 08/07/18 13:40) Unknown [...] PO DAILY tab 08/07/18 [History Confirmed 08/07/18] [facility] Medical History Paroxysmal atrial fibrillation (Chronic) MGUS [...] F Source: [place] F[place] 10:59 AM [facility] REPOSITORY TYPE CODE TESTS RESULT OUT OF REFERENCE UNITS RANGE LAB L9200.1001 11.9-14.4 SEC High PROTIME ISTAT 18.0 Result Comment: Reference Range 11.9 - 14.4 LAB L9200.2000 Normal INR ISTAT 1.50 Result Comment: Critical Value > 3.5 Performed By: #### L9200.0000 #### [facility] Laboratory Point of Care [address] [place] [address] DISCHARGE INSTRUCTION Observed: 07/28/2018 Status: F Source: [place] 2:16 PM [facility] REPOSITORY [facility] Medical Records Department [address] [place] [address] Instructions for Home/Discharge Instructions 07/28/18 1339 MR#: [id number] Acct: [id number] Name: CHRISTIANO VALVERDE Rep #: [id number] : 1940 78 From: Thang Ramirez MD [...] it caused renal failure. thyroid, pork [From [place] Thyroid] Allergy (Severe, Verified 02/13/18 14:45) Unknown [...] DISCHARGE SUMMARY Observed: 07/28/2018 Status: F Source: [place] 10:47 AM [facility] REPOSITORY [facility] Medical Records Department [address] [place] [address] Discharge Summary 07/28/18 1039 MR#: [id number] Acct: [id number] Name: CHRISTIANO VALVERDE Rep #: [id number] : 1940 78 From: Thang Ramirez MD PCP: Michael Muse MD Status: ADM IN Location: [place] [address] Discharge Date and Diagnosis - Problem List [...] Date Recorded By Document 07/28/18 05:00 MLS [id number] 07/28/18 05:56 MLS Orthostatic Vitals Standing -Blood [...] 55 Code Visit Inpatient E AND M: 32259 Disch Hosp 07/28/18 1047 <Electronically signed by Thang Ramirez MD> Date Thang Ramirez MD Cosigner Signature (if applicable): Date CC: Michael Muse MD; Thang Ramirez MD Signed 12 LEAD ELECTROCARDIOGRAM Observed: 07/27/2018 Status: F Source: [place] 3:42 PM [facility] REPOSITORY [facility] Cardiovascular Services [address] [place] [address] 12 Lead EKG 07/25/18 2303 MR#: [id number] Acct: [id number] Name: CHRISTIANO VALVERDE Rep #: [id number] : 1940 78 From: Otilio Mitchell MD Attending Dr: Thang Ramirez MD Status: ADM IN Ordering Dr: Rian Lozoya MD Date: 07/25/18 Location: [facility] Sex: F C Admitted: 07/26/18 Test Reason : SYNCOPE Blood Pressure : / mmHG Vent. Rate : 072 BPM Atrial Rate : 057 BPM P-R Int : 000 ms QRS Dur : 224 ms QT Int : 510 ms P-R-T Axes : 000 -48 -06 degrees QTc Int : 558 ms Ventricular-paced rhythm Abnormal ECG Confirmed by OTILIO MITCHELL MD ([id number]), department editor SHAHANA SANDRA ([id number]) on 07/27/2018 3:42:19 PM Referred By: DR LOZOYA Confirmed By:OTILIO MITCHELL MD 07/27/18 1542 Date Otilio Mitchell MD CC: Michael Muse MD; Thang Ramirez MD; Rian Lozoya MD Signed ECHOCARDIOGRAM COMPLETE Observed: 07/27/2018 Status: F Source: [place] 3:09 PM [facility] HOSPITAL REPOSITORY [facility] Cardiovascular Services [address] [place] [address] Echo Complete 07/27/18 1054 MR#: [id number] Acct: [id number] Name: CHRISTIANO VALVERDE Rep #: [id number] : 1940 78 From: Otilio Mitchell MD Attending Dr: Thang Ramirez MD Status: ADM IN Ordering Dr: Richie Rice MD Date: 07/26/18 Location: [facility] Sex: F C Admitted: 07/26/18 Reason [...] Dictated: 07/27/18 1054 Date Transcribed: 07/27/18 1509 Tub Operator: Signed CONSULTATION Observed: 07/27/2018 Status: F Source: [place] 7:17 AM [facility] REPOSITORY [facility] Medical Records Department [address] [place] [address] Consultation 07/26/18 1705 MR#: [id number] Acct: [id number] Name: CHRISTIANO VALVERDE Rep #: [id number] : 1940 78 From: Otilio Mitchell MD PCP: Michael Muse MD Status: ADM IN Y Location: [place] [address] Reason for Consult Date of Consultation: 07/26/18 [...] nonischemic cardiomyopathy, chronic systolic congestive heart failure Carter Association class IV, valvular heart disease status [...] visit she was admitted to [facility] for acute on chronic systolic [...] it caused renal failure. thyroid, pork [From [place] Thyroid] Allergy (Severe, Verified 02/13/18 14:45) Unknown [...] Date Recorded By Document 07/26/18 05:45 AML [id number] 07/26/18 05:51 AML Orthostatic Vitals Standing -Blood [...] (Auto) 66.7, Lymph % (Auto) 13.6 L, Delta % (Auto) 11.2 H, Eos % (Auto) [...] Clarity Cloudy, Urine pH 6.0, Ur Specific Anderson 1.015, Urine Protein 30 H, Urine Glucose [...] 78.1 H, Lymph % (Auto) 9.6 L, Delta % (Auto) 6.9, Eos % (Auto) 5.0, [...] Source: [place] NO DIFF 5:26 AM [facility] REPOSITORY TYPE CODE TESTS RESULT OUT OF [...] Performed By: #### L100.0500 #### [facility] Laboratory [facility] [place], [address] BASIC METABOLIC Collected: 07/27/2018 Status: F Source: [place] PROFILE ([facility]) 5:26 AM [facility] REPOSITORY TYPE CODE TESTS RESULT OUT OF [...] Performed By: #### L500.2500 #### [facility] Laboratory [address] [place], [address] PROTHROMBIN TIME W/INR Collected: 07/27/2018 Status: F Source: [place] 5:26 AM [facility] REPOSITORY TYPE CODE TESTS RESULT OUT OF RANGE REFERENCE UNITS LAB L300.4150 11.7-14.9 SECONDS High PROTIME 23.7 LAB L300.4200 Normal INR 2.1 Performed By: #### L300.3900 #### [facility] Laboratory [address] [place], [address] MAGNESIUM Collected: 07/27/2018 Status: F Source: [place] 5:26 AM [facility] REPOSITORY TYPE CODE TESTS RESULT OUT OF RANGE REFERENCE UNITS LAB L501.5200 1.6-2.6 mg/dL Normal MG 2.3 Performed By: #### L501.5200 #### [facility] Laboratory [address] [place], [address] Observed: 07/26/2018 Status: F Source: [place] STOOL OCCULT BLOOD 6:55 PM [facility] IFOB REPOSITORY STOB iFOB Occult Blood Negative Performed By: #### M100.7900 #### [facility] Laboratory [address] [place], [address] TYPE AND SCREEN Collected: 07/26/2018 Status: F Source: [place] 10:00 AM [facility] REPOSITORY Order Comment: CMV NEG? N Number [...] Performed By: #### B101.7450 #### [facility] Laboratory [address] [place], [address] Collected: 07/26/2018 Status: F Source: [place] 10:00 AM [facility] REPOSITORY TYPE CODE TESTS RESULT OUT OF REFERENCE UNITS RANGE LAB U100.0000 [id number] TRANSFUSED PRODUCT: T AND S with Crossmatch, Red Cells COUNT: 1 Performed By: #### U100.0000 #### Non-[facility] Laboratory - refer to report for specific site HISTORY AND PHYSICAL Observed: 07/26/2018 Status: F Source: [place] EXAM 8:44 AM [facility] REPOSITORY [facility] Medical Records Department [address] [place] [address] History and Physical 07/26/18 0741 MR#: [id number] Acct: [id number] Name: CHRISTIANO VALVERDE Rep #: [id number] : 1940 78 From: Richie Rice MD PCP: Michael Muse MD Status: ADM KELSIE Y Location: [place] [address] Problem List (1) Syncope and collapse Status: Acute History of Present Illness Date of Admission: 07/26/18 Chief Complaint: Syncope and fall. The patient is a 78 year old F with a significant history of chronic pancytopenia; monoclonal gammopathy nonischemic cardiomyopathy; chronic congestive heart failure Carter heart association class IV; open heart surgery reportedly with reconstruction of 4 valves; previous clot in his heart; A. fib status post AV node ablation with biventricular ICD placement and left atrial appendage ligation; PFO; hypertension; and hyperlipidemia [place]-term anticoagulation with Coumadin; who presented because of transient loss of consciousness leading to a fall. She presented to the emergency department on the same day of her symptoms and was admitted after midnight. Patient got up from a bed and was going to the bathroom when she passed out and fell. Her son heard the fall and came to picket [employer] patient. 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 thyroid, pork [From [place] Thyroid] Allergy (Severe, Verified 02/13/18 14:45) Unknown [...] placement of #28 tricuspid annuloplasty ring @ [facility] tricuspid valve repair (Chronic) Z98.890 05/19/09 [...] Date Recorded By Document 07/26/18 05:45 AML [id number] 07/26/18 05:51 AML Orthostatic Vitals Standing -Blood [...] of nonischemic cardiomyopathy; chronic congestive heart failure Carter heart association class IV with ejection fraction [...] Lovenox. Code Visit OBSV E AND M: [id number] Initial observation care L3 07/26/18 0844 <Electronically signed by Richie Rice MD> Date Richie Rice MD Cosigner Signature: Date (if applicable) CC: Michael Muse MD; Richie Rice MD Signed CBC W/DIFF, AUTOMATED Collected: 07/26/2018 Status: F Source: [place] 7:18 AM [facility] REPOSITORY TYPE CODE TESTS RESULT OUT OF [...] Performed By: #### L100.0100 #### [facility] Laboratory [address] [facility] [place], [place], [address] BASIC METABOLIC Collected: 07/26/2018 Status: F Source: [place] PROFILE ([facility]) 7:18 AM [facility] REPOSITORY TYPE CODE TESTS RESULT OUT OF [...] Performed By: #### L500.2500 #### [facility] Laboratory [address] [place], [address] EMERGENCY DEPARTMENT Observed: 07/26/2018 Status: F Source: [place] SUMMARY 1:45 AM [facility] REPOSITORY [facility] Medical Records Department [address] [place] [address] Emergency Department Summary 07/25/18 2248 MR#: [id number] Acct: [id number] Name: CHRISTIANO VALVERDE Rep #: [id number] : 1940 78 From: Rian Lozoya MD [...] Decompensated CHF This note was generated with [employer]) dictation software. It may contain incorrect words, [...] your Primary Care Provider. Call [facility] ([phone]) or report to the closest Emergency Room. Call 911 if necessary. 07/26/18 0145 <Electronically signed by Rian Lozoya MD> Date Rian Lozoya MD Cosigner Signature (If Indicated): Date CC: Michael Muse MD URINALYSIS, COMPLETE Collected: 07/26/2018 Status: F Source: [place] 12:55 AM [facility] REPOSITORY Order Comment: Order Date: 07/25/18 Has [...] Performed By: #### L400.0001 #### [facility] Laboratory [address] [place], [address] Observed: 07/26/2018 Status: F Source: [place] CULTURE, URINE 12:55 AM [facility] REPOSITORY Order Date: 07/26/18 Comments: SPECIMEN IN LAB Urine Culture ORGANISM 1: Escherichia coli Manquin Count >100,000 Escherichia coli: REACTION Amoxacillin/Clavulanic Acid [...] (NF) indicates non-formulary drug at [facility]. Approval by Infectious Disease Specialist required before non-formulary drugs may be ordered and/or dispensed. Performed By: #### M100.0650 #### [facility] Laboratory [address] [place], [address] CBC W/DIFF, AUTOMATED Collected: 07/25/2018 Status: F Source: [place] 11:20 PM [facility] REPOSITORY TYPE CODE TESTS RESULT OUT OF [...] Performed By: #### L100.0100 #### [facility] Laboratory [address] [place], [place], [address] COMPREHENSIVE METABOLIC Collected: 07/25/2018 Status: F Source: [place] 11:20 PM [facility] REPOSITORY TYPE CODE TESTS RESULT OUT OF [...] By: #### L500.4050, L501.4010 #### [facility] Laboratory [address] [place], [address] TROPONIN-I Collected: 07/25/2018 Status: F Source: [place] 11:20 PM [facility] REPOSITORY TYPE CODE TESTS RESULT OUT OF RANGE REFERENCE UNITS LAB L501.4010 <0.045 ng/mL Normal < 0.015 TROPONIN-I Result Comment: TROPONIN-I EXPECTED VALUES <0.045 Negative 0.045 - 0.590 Consistent with Cardiac Damage > OR = 0.600 Critical Value Not every elevated troponin is indicative of VA. These values should be used with clinical judgement in examining the patient's clinical picture for diagnosis. To establish a diagnosis of VA versus myocardial injury, there must be a demonstrated rise and/or fall in the troponin values, in addition to ischemic symptoms, EKG changes, new regional wall motion abnormality, and/or angiographical evidence. PLEASE NOTE: REFERENCE RANGES EDITED 18 Performed By: #### L500.4050, L501.4010 #### [facility] Laboratory [address] [place], [address] BNP,B-TYPE NATRIURETIC Collected: 07/25/2018 Status: F Source: [place] PEPTIDE 11:20 PM [facility] REPOSITORY TYPE CODE TESTS RESULT OUT OF RANGE REFERENCE UNITS LAB L503.6620 0-100 pg/mL High B-TYPE 2470.4 ADELAIDA PEP Performed By: #### L503.6620 #### [facility] Laboratory [address] [place], [address] PROTHROMBIN TIME W/INR Collected: 07/25/2018 Status: F Source: [place] 11:20 PM [facility] REPOSITORY TYPE CODE TESTS RESULT OUT OF RANGE REFERENCE UNITS LAB L300.4150 11.7-14.9 SECONDS High PROTIME 20.2 LAB L300.4200 Normal INR 1.7 Performed By: #### L300.3900 #### [facility] Laboratory [address] [place], [address] CHEST 1 VIEW Observed: 07/25/2018 Status: F Source: [place] (PORTABLE) 10:47 PM [facility] REPOSITORY [facility] Imaging Services [address] [place] [address] Chest 1 View (Portable) MR#: [id number] Acct: [id number] Name: CHRISTIANO VALVERDE Rep #: [id number] : 1940 F 78 From: Carmela Sandra MD PCP: Michael Muse MD Status: REG ER Study: Chest 1 View (Portable) Date of Exam: 07/25/18 Exam# [id number] Ordering Dr: Rian Lozoya MD STUDY: X-RAY [...] CC: Michael Muse MD; Rian Lozoya MD Tub Operator: Signed BRAIN/HEAD WITHOUT Observed: 07/25/2018 Status: F Source: [place] CONTRAST 10:47 PM [facility] REPOSITORY [facility] Imaging Services [address] [place] [address] Brain/Head without Contrast MR#: [id number] Acct: [id number] Name: CHRISTIANO VALVERDE Rep #: [id number] : 1940 F 78 From: Mark Anthony Pizarro PCP: Michael Muse MD Status: REG ER Study: Brain/Head without Contrast Date of Exam: 07/25/18 Exam# [id number] Ordering Dr: Rian Lozoya MD STUDY: CT [...] CC: Michael Muse MD; Rian Lozoya MD Tub Operator: Signed PACEMAKER CHECK Observed: 07/23/2018 Status: F Source: [place] 10:13 AM [facility] REPOSITORY [facility] [address] [place] [address] Pacemaker Check Date of Service: 07/22/181809 MR#: [id number] Acct: [id number] Name: CHRISTIANO VALVERDE Rep #: [id number] : 1940 From: Angelica Kim Age/Sex: 78/F Location: [facility] Status: Signed Billing Codes ICD Device Billing: ICD Dev Interrogate (Rmt) 07/22/181811 <Electronically signed by Angelica Kim > Date Angelica Kim 07/23/18 1013<Electronically signed by Carlos Mcallister MD> Cosigner Signature: Date (if applicable) Carlos Mcallister MD CC: PROTHROMBIN TIME W/INR Collected: 07/20/2018 Status: F Source: [place] 10:40 AM [facility] REPOSITORY TYPE CODE TESTS RESULT OUT OF RANGE REFERENCE UNITS LAB L300.4150 11.7-14.9 SECONDS High PROTIME 24.7 LAB L300.4200 Normal INR 2.2 Performed By: #### L300.3900 #### [facility] Laboratory [facility] [place], [address] PROTHROMBIN TIME W/INR Collected: 07/15/2018 Status: F Source: [place] 10:50 AM [facility] REPOSITORY Order Comment: Result obtained is for confirmation testing of Fingerstick PT/INR Specimen # [id number] . 07/15/18 1106 DMILLER2 THIS CONFIRMATION SPECIMEN RESULT IS FROM VENOUS BLOOD. TYPE CODE TESTS RESULT OUT OF REFERENCE UNITS RANGE LAB L300.4150 11.7-14.9 SECONDS High PROTIME 48.4 LAB L300.4200 High alert INR 5.2 Result Comment: CRITICAL VALUE VERIFIED. CALLED TO RITA AT [facility] 07/15/18 1132 Francisca Mayberry. RESULTS READ BACK BY SAME . Performed By: #### L300.3900 #### [facility] Laboratory [place], [address] PROTIME W/INR Collected: 07/15/2018 Status: F Source: [place] FINGERSTICK 10:36 AM [facility] REPOSITORY TYPE CODE TESTS RESULT OUT OF REFERENCE UNITS RANGE LAB L9200.1001 11.9-14.4 SEC High PROTIME ISTAT 64.8 Result Comment: Reference Range 11.9 - 14.4 LAB L9200.2000 High alert INR ISTAT 5.90 Result Comment: Critical Value > 3.5 Performed By: #### L9200.0000 #### [facility] Laboratory [address] [facility] [address] [place] [address] PROTHROMBIN TIME W/INR Collected: 07/06/2018 Status: F Source: [place] 11:45 AM [facility] REPOSITORY Order Comment: Result obtained is for [...] Performed By: #### L300.3900 #### [facility] Laboratory [place], [address] PROTIME W/INR Collected: 07/06/2018 Status: F Source: [place] FINGERSTICK 11:23 AM [facility] REPOSITORY TYPE CODE TESTS RESULT OUT OF REFERENCE UNITS RANGE LAB L9200.1001 11.9-14.4 SEC High PROTIME ISTAT 41.3 Result Comment: Reference Range 11.9 - 14.4 LAB L9200.2000 High alert INR ISTAT 3.70 Result Comment: Critical Value > 3.5 Performed By: #### L9200.0000 #### [facility] Laboratory Point of Care [address] [place] [place] [address] PROTIME W/INR Collected: 06/29/2018 Status: F Source: [place]INGER[place] 10:32 AM [facility] REPOSITORY TYPE CODE TESTS RESULT OUT OF REFERENCE UNITS RANGE LAB L9200.1001 11.9-14.4 SEC High PROTIME ISTAT 36.1 Result Comment: Reference Range 11.9 - 14.4 LAB L9200.2000 Normal INR ISTAT 3.20 Result Comment: Critical Value > 3.5 Performed By: #### L9200.0000 #### [facility] Laboratory Point [facility] [address] [place] [address] PROTIME W/INR Collected: 06/11/2018 Status: F Source: [place]ING[place] 10:30 AM [facility] REPOSITORY TYPE CODE TESTS RESULT OUT OF REFERENCE UNITS RANGE LAB L9200.1001 11.9-14.4 SEC High PROTIME ISTAT 20.1 Result Comment: Reference Range 11.9 - 14.4 LAB L9200.2000 Normal INR ISTAT 1.70 Result Comment: Critical Value > 3.5 Performed By: #### L9200.0000 #### [facility] Laboratory [place] [place] [address] PROTIME W/INR Collected: 06/04/2018 Status: F Source: [place] FINGERSTICK 11:05 AM [facility] REPOSITORY TYPE CODE TESTS RESULT OUT OF REFERENCE UNITS RANGE LAB L9200.1001 11.9-14.4 SEC High PROTIME ISTAT 21.4 Result Comment: Reference Range 11.9 - 14.4 LAB L9200.2000 Normal INR ISTAT 1.80 Result Comment: Critical Value > 3.5 Performed By: #### L9200.0000 #### [facility] Laboratory Point of [address] [place], [place] [address] PROTHROMBIN TIME W/INR Collected: 05/28/2018 Status: F Source: [place] 11:55 AM [facility] REPOSITORY Order Comment: TO CONFIRM LOW FINGERSTICK PT/IRN RESULT. THIS IS FIRST TIME WE HAVE DONE FINGERSTICK ON THIS PATIENT AND RESULTS SEEM QUESTIONABLE TYPE CODE TESTS RESULT OUT OF RANGE REFERENCE UNITS LAB L300.4150 11.7-14.9 SECONDS High PROTIME 16.5 LAB L300.4200 Normal INR 1.3 Performed By: #### L300.3900 #### [facility] Laboratory [address] [place], [address] PROTIME W/INR Collected: 05/28/2018 Status: F Source: [place] FINGERSTICK 11:46 AM [facility] REPOSITORY TYPE CODE TESTS RESULT OUT OF REFERENCE UNITS RANGE LAB L9200.1001 11.9-14.4 SEC High PROTIME ISTAT 14.8 Result Comment: Reference Range 11.9 - 14.4 LAB L9200.2000 Normal INR ISTAT 1.20 Result Comment: Critical Value > 3.5 Performed By: #### L9200.0000 #### [facility] Laboratory Point of Care [address] [place] [address] CBC W/DIFF, AUTOMATED Collected: 05/19/2018 Status: F Source: [place] 11:10 AM [facility] REPOSITORY Order Comment: Reason for Laboratory Test [...] By: #### L100.0100, L500.4050 #### [facility] Laboratory [address] [place], [address] COMPREHENSIVE METABOLIC Collected: 05/19/2018 Status: F Source: [facility] 11:10 AM [facility] REPOSITORY Order Comment: Reason for Laboratory Test [...] By: #### L100.0100, L500.4050 #### [facility] Laboratory [address] [place], [address] PROTHROMBIN TIME W/INR Collected: 05/19/2018 Status: F Source: [place] 11:10 AM [facility] REPOSITORY TYPE CODE TESTS RESULT OUT OF RANGE REFERENCE UNITS LAB L300.4150 11.7-14.9 SECONDS High PROTIME 19.4 LAB L300.4200 Normal INR 1.6 Performed By: #### L300.3900 #### [facility] Laboratory [address] [place], [address] VIANEY + PROTEIN ELECT, Collected: 05/19/2018 Status: F Source: [place] SERUM 11:10 AM [facility] REPOSITORY Order Comment: Reason for Laboratory Test ROUTINE Is Patient Fasting? N TYPE CODE TESTS RESULT OUT OF RANGE REFERENCE UNITS LAB L3100.3500 6.0-8.5 g/dL Normal PROTEIN,TOTAL 6.1 LAB L3200.3807 813-7180 mg/dL Normal IMMUNO G 1037 LAB L3200.1400 64-422 mg/dL Normal IMMUNO A 299 LAB L3200.1500 26-217 mg/dL Normal IMMUNOGL M 29 LAB L3200.1510 2.9-4.4 g/dL Normal ALBUMIN 3.5 LAB L3200.1520 0.0-0.4 g/dL Normal ZIIQC-5-IGPK 0.2 LAB L3200.1530 0.4-1.0 g/dL Normal FJPDS-7-QHMX 0.5 LAB L3200.1540 0.7-1.3 g/dL Normal BETA [...] scan will follow via computer, mail, or high reach operator delivery. Performed By: #### L3100.3425, L3100.3450 #### [facility] (refer to report for specific site) refer to report for address and phone number PROTEIN ELECTROPH, S Collected: 05/19/2018 Status: F Source: [place] 11:10 AM [facility] REPOSITORY Order Comment: Reason for Laboratory Test [...] scan will follow via computer, mail, or high reach operator delivery. Performed at: [facility] [address] [id number] Treater Helper: Fransisco Wade PhD, Phone: [phone] LAB L3055.4128 . Normal Test not NOTE: performed Performed By: #### L3100.3425, L3100.3450 #### [facility] (refer to report for specific site) refer to report for address and phone number PROTHROMBIN TIME W/INR Collected: 04/27/2018 Status: F Source: [place] 11:30 AM [facility] REPOSITORY TYPE CODE TESTS RESULT OUT OF RANGE REFERENCE UNITS LAB L300.4150 11.7-14.9 SECONDS High PROTIME 29.6 LAB L300.4200 Normal INR 2.8 Performed By: #### L300.3900 #### [facility] Laboratory [address] [place], [address] PACEMAKER CHECK Observed: 04/22/2018 Status: F Source: [place] 4:33 PM [facility] REPOSITORY [facility] [address] [place] [address] Pacemaker Check Date of Service: 04/10/181716 MR#: [id number] Acct: [id number] Name: CHRISTIANO VALVERDE Rep #: [id number] : 1940 From: Angelica Kim Age/Sex: 77/F Location: [facility] Status: Signed Billing Codes ICD Device Billing: ICD Dev Interrogate (Rmt) 04/10/18 171 <Electronically signed by Angelica Kim > Date Angelica Kim 04/22/18 1633<Electronically signed by Otilio Mitchell MD> Cosign Signature: Date (if applicable) Otilio Mitchell MD CC: BASIC METABOLIC Collected: 04/08/2018 Status: F Source: [place] PROFILE (BMP) 10:50 AM [facility] REPOSITORY TYPE CODE TESTS RESULT OUT OF [...] Performed By: #### L500.2500 #### [facility] Laboratory [address] [place], [address] PROTHROMBIN TIME W/INR Collected: 04/08/2018 Status: F Source: [place] 10:50 AM [facility] REPOSITORY TYPE CODE TESTS RESULT OUT OF RANGE REFERENCE UNITS LAB L300.4150 11.7-14.9 SECONDS High PROTIME 22.7 LAB L300.4200 Normal INR 2.0 Performed By: #### L300.3900 #### [facility] Laboratory [address] [place], [address] PROTHROMBIN TIME W/INR Collected: 03/24/2018 Status: F Source: [place] 10:30 AM [facility] REPOSITORY Order Comment: HOMEDRAW TYPE CODE TESTS RESULT OUT OF RANGE REFERENCE UNITS LAB L300.4150 11.7-14.9 SECONDS High PROTIME 22.0 LAB L300.4200 Normal INR 1.9 Performed By: #### L300.3900 #### [facility] [address] [place], [address] PROTHROMBIN TIME W/INR Collected: 03/17/2018 Status: F Source: [place] 11:00 AM [facility] REPOSITORY TYPE CODE TESTS RESULT OUT OF RANGE REFERENCE UNITS LAB L300.4150 11.7-14.9 SECONDS High PROTIME 21.1 LAB L300.4200 Normal INR 1.8 Performed By: #### L300.3900 #### [facility] [address] [place], [address] COMPREHENSIVE METABOLIC Collected: 03/17/2018 Status: F Source: [place] [facility] 11:00 AM [facility] REPOSITORY Order Comment: NOT FASTING Order Date: [...] #### L500.4050, L501.9520, L100.0100 #### [facility] Laboratory [address] [place], [address] THYROID STIM HORMONE Collected: 03/17/2018 Status: F Source: [place] ([facility]SH) 11:00 AM [facility] REPOSITORY Order Comment: NOT FASTING Order Date: 03/05/18 Order Info: 0786-1 - CMP Order Info: 3016-3 - [facility] TYPE CODE TESTS RESULT OUT OF RANGE REFERENCE UNITS LAB L501.9520 0.358-3.74 uIU/mL High TSH 6.85 Performed By: #### L500.4050, L501.9520, L100.0100 #### [facility] [address] [facility] [place], [place], [address] CBC W/DIFF, AUTOMATED Collected: 03/17/2018 Status: F Source: [place] 11:00 AM [facility] REPOSITORY Order Comment: Order Date: 03/05/18 Order [...] #### L500.4050, L501.9520, L100.0100 #### [facility] Laboratory [address] [facility] [place], [place], [address] BNP,B-TYPE NATRIURETIC Collected: 03/17/2018 Status: F Source: [place] PEPTIDE 11:00 AM [facility] REPOSITORY TYPE CODE TESTS RESULT OUT OF RANGE REFERENCE UNITS LAB L503.6620 0-100 pg/mL High B-TYPE 1048.7 ADELAIDA PEP Performed By: #### L503.6620 #### [facility] Laboratory [address] [place], [address] BASIC METABOLIC Collected: 03/03/2018 Status: F Source: [place] PROFILE (BMP) 10:45 AM [facility] REPOSITORY TYPE CODE TESTS RESULT OUT OF [...] Performed By: #### L500.2500 #### [facility] Laboratory [address] [place], [address] PROTHROMBIN TIME W/INR Collected: 03/03/2018 Status: F Source: [place] 10:45 AM [facility] REPOSITORY TYPE CODE TESTS RESULT OUT OF RANGE REFERENCE UNITS LAB L300.4150 11.7-14.9 SECONDS High PROTIME 32.1 LAB L300.4200 Normal INR 3.1 Performed By: #### L300.3900 #### [facility] [address] [place], [address] CARDIOLOGY VISIT Observed: 02/17/2018 Status: F Source: [place] REPORT 9:55 PM [facility] REPOSITORY [facility] [address] [place] [address] OFFICE VISIT Date of Service: 02/13/18 MR#: [id number] Acct: [id number] Name: CHRISTIANO VALVERDE Rep #: [id number] : 1940 Provider: Devin Gamboa Age/Sex: 77/F Location: [facility] Status: Signed HPI HPI Details: CHRISTIANO VALVERDE, is a 77 F who presents to the office today for a cardiovascular follow-up. 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 thyroid, pork [From Kipling Thyroid] Allergy (Severe, Verified 02/13/18 14:45) Unknown [...] pills in the evening, then you can [employer] your next Rx- that will be the [...] Status: F Source: [place] 10:50 AM [facility] REPOSITORY TYPE CODE TESTS RESULT OUT OF RANGE REFERENCE UNITS LAB L300.4150 11.7-14.9 SECONDS High PROTIME 26.7 LAB L300.4200 Normal INR 2.5 Performed By: #### L300.3900 #### [facility] [address] [place], [place], [address] PROTHROMBIN TIME W/INR Collected: 02/10/2018 Status: F Source: [place] 10:30 AM [facility] REPOSITORY Order Comment: [place] TYPE CODE TESTS RESULT OUT OF RANGE REFERENCE UNITS LAB L300.4150 11.7-14.9 SECONDS High PROTIME 21.3 LAB L300.4200 Normal INR 1.8 Performed By: #### L300.3900 #### [facility] [address] [place], [address] PROTHROMBIN TIME W/INR Collected: 02/06/2018 Status: F Source: [place] 10:20 AM [facility] REPOSITORY Order Comment: PT/INR TO DR. MCALLISTER BMP TO DEVIN GAMBOA TYPE CODE TESTS RESULT OUT OF RANGE REFERENCE UNITS LAB L300.4150 11.7-14.9 SECONDS High PROTIME 16.3 LAB L300.4200 Normal INR 1.3 Performed By: #### L300.3900 #### [facility] [address] [place], [place], [address] BASIC METABOLIC Collected: 02/06/2018 Status: F Source: [place] PROFILE (BMP) 10:20 AM [facility] REPOSITORY Order Comment: PT/INR TO DR. MCALLISTER [...] Performed By: #### L500.2500 #### [facility] [address] [place], [address] CARDIOLOGY VISIT Observed: 02/06/2018 Status: F Source: [place] REPORT 7:59 AM [facility] REPOSITORY [facility] [address] [place] [address] OFFICE VISIT Date of Service: 01/23/18 MR#: [id number] Acct: [id number] Name: CHRISTIANO VALVERDE Rep #: [id number] : 1940 Provider: Devin Gamboa Age/Sex: 77/F Location: [facility] Status: Signed HPI HPI Details: CHRISTIANO VALVERDE, is a 77 F who presents to the office today for a cardiovascular follow-up. 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 thyroid, pork [From Kipling Thyroid] Allergy (Severe, Verified 01/23/18 14:09) Unknown [...] by Devin FORD> Date Devin FORD 02/06/18 1480<Electronically signed by Carlos Mcallister MD> Cosigner Signature: Date (if applicable) Carlos Mcallister MD CC: Michael Muse MD 12 LEAD ELECTROCARDIOGRAM Observed: 01/28/2018 Status: F Source: [place] 1:20 PM [facility] Cardiovascular Services [address] [place] [address] 12 Lead EKG 01/25/182138 MR#: [id number] Acct: [id number] Name: CHRISTIANO VALVERDE Rep #: [id number] : 1940 77 From: Carlos Mcallister MD Attending Dr: Thang Ramirez MD Status: DIS IN Ordering Dr: Agata Morejon MD Date: 01/25/18 Location: [facility] Sex: F C Admitted: 01/25/18 Test Reason : SOB Blood Pressure : / mmHG Vent. Rate : 141 BPM Atrial Rate : 038 BPM P-R Int : 000 ms QRS Dur : 090 ms QT Int : 086 ms P-R-T Axes : 000 -24 000 degrees QTc Int : 131 ms Electronic ventricular pacemaker Borderline ECG Confirmed by ESVIN PAUL, CARLOS ([id number]), department editor SHAHANA SANDRA ([id number]) on 01/28/2018 1:19:55 PM Referred By: DAISY Confirmed By:CARLOS MCALLISTER MD 01/28/18 1320 Date Carlos Mcallister MD CC: Agata Morejon MD; Michael Muse MD; Thang Ramirez MD Signed DISCHARGE INSTRUCTION Observed: 01/27/2018 Status: F Source: [place] 9:49 AM [facility] Medical Records Department [address] [place] [address] Instructions for Home/Discharge Instructions 01/27/1848 MR#: [id number] Acct: [id number] Name: CHRISTIANO VALVERDE Rep #: [id number] : 1940 77 From: Thang Ramirez MD PCP: Michael Muse MD Status: ADM IN You will use the following diet at home:: Cardiac, Fluid restricted (specify 2000 mls, 1500 mls) - 1999 Discharge Activity: Return to Normal Activity Allergies/Adverse Reactions: Allergies levothyroxine sodium [From Synthroid] Allergy (Severe, Verified 01/23/18 14:09) Pt states it caused renal failure. thyroid, pork [From Kipling Thyroid] Allergy (Severe, Verified 01/23/18 14:09) Unknown [...] Status: F Source: [place] 9:40 AM [facility] REPOSITORY [facility] Medical Records Department [address] [place] [address] Discharge Summary 01/27/18 0936 MR#: [id number] Acct: [id number] Name: CHRISTIANO VALVERDE Rep #: [id number] : 1940 77 From: Thang Ramirez MD PCP: Michael Muse MD Status: ADM IN Y Location: [place] [address]-1 Discharge Date and Diagnosis Date of Admission: [...] thinning. No evidence of bowel obstruction. at 1864 Reported and signed by: Shahana Maddox MD [...] 20 Code Visit Inpatient E AND M: 83816 Disch Hosp 01/27/18 0940 <Electronically signed by Thang Ramirez MD> Date Thang Ramirez MD Cosigner Signature (if applicable): Date CC: Michael Muse MD; Thang Ramirez MD Signed TROPONIN-I Collected: 01/26/2018 Status: F Source: [place] 11:50 AM [facility] REPOSITORY Order Comment: 'TROP' Serial specimen #1, #2, #3, or #4: 4 TYPE CODE TESTS RESULT OUT OF RANGE REFERENCE UNITS LAB L501.4010 <0.06 ng/mL Normal < 0.02 TROPONIN-I Result Comment: TROPONIN-I EXPECTED VALUES <0.05 NEGATIVE 0.06 - 0.59 AT RISK OF VA > OR = 0.60 SUGGEST VA Performed By: #### L501.4010, L500.2500 #### [facility] Laboratory [address] [place], [address] ABDOMEN/PELVIS WITH Observed: 01/26/2018 Status: F Source: [place] CONTRAST 9:14 AM [facility] REPOSITORY [facility] Imaging Services [address] [place] [address] Abdomen/Pelvis WITH Contrast MR#: [id number] Acct: [id number] Name: CHRISTIANO VALVERDE Rep #: [id number] : 1940 F 77 From: Axel Condon MD PCP: Michael Muse MD Status: ADM IN Study: Abdomen/Pelvis WITH Contrast Date of Exam: 01/26/18 Exam# [id number] Ordering Dr: Thang Ramirez MD STUDY: CT [...] CC: Michael Muse MD; Thang Ramirez MD Tub Operator: Signed BASIC METABOLIC Collected: 01/26/2018 Status: F Source: [place] PROFILE (BMP) 5:35 AM [facility] REPOSITORY Order Comment: 'TROP' Serial specimen #1, [...] By: #### L501.4010, L500.2500 #### [facility] Laboratory [address] [place], [place], [address] CBC W/DIFF, AUTOMATED Collected: 01/26/2018 Status: F Source: [place] 5:35 AM [facility] REPOSITORY TYPE CODE TESTS RESULT OUT OF [...] Performed By: #### L100.0100 #### [facility] [place], [address] PROTHROMBIN TIME W/INR Collected: 01/26/2018 Status: F Source: [place] 5:35 AM [facility] REPOSITORY TYPE CODE TESTS RESULT OUT OF RANGE REFERENCE UNITS LAB L300.4150 11.7-14.9 SECONDS High PROTIME 22.7 LAB L300.4200 Normal INR 2.0 Performed By: #### L300.3900 #### [facility] [address] [place], [address] MAGNESIUM Collected: 01/26/2018 Status: F Source: [place] 2:10 AM [facility] REPOSITORY TYPE CODE TESTS RESULT OUT OF RANGE REFERENCE UNITS LAB L501.5200 1.6-2.6 mg/dL Normal MG 2.4 Performed By: #### L501.5200 #### [facility] Laboratory [address] [place], [address] HISTORY AND PHYSICAL Observed: 01/26/2018 Status: F Source: [place] EXAM 1:24 AM [facility] REPOSITORY [facility] Medical Records Department [address] [place] [address] History and Physical 01/26/18 0005 MR#: [id number] Acct: [id number] Name: CHRISTIANO VALVERDE Rep #: [id number] : 1940 77 From: Martha Hernandez MD PCP: Michael Muse MD Status: ADM IN Location: [place] [address] Problem List (1) Atrial flutter Status: Chronic [...] it caused renal failure. thyroid, pork [From Kipling Thyroid] Allergy (Severe, Verified 01/23/18 14:09) Unknown [...] systolic and diastolic CHF: Admit to PCU, security monitor, serial cardiac enzymes, fluid restriction to [...] chronic pancytopenia/MGUS. This note was generated with Fitmooation software. It may contain incorrect words, spelling, and punctuation that were not noted in checking the note before signing. Code Visit Inpatient E AND M: 80958 Init Hosp 01/26/18 0124 <Electronically signed by Martha Hernandez MD> Date Martha Hernandez MD Cosigner Signature: Date (if applicable) CC: Michael Muse MD; Martha Hernandez Signed EMERGENCY DEPARTMENT Observed: 01/26/2018 Status: F Source: [place] SUMMARY 12:00 AM [facility] REPOSITORY [facility] Medical Records Department [address] [place] [address] Emergency Department Summary 01/25/18 2211 MR#: [id number] Acct: [id number] Name: CHRISTIANO VALVERDE Rep #: [id number] : 1940 77 From: Agata Morejon MD [...] pleural effusion This note was generated with Go[employer]i(Cabeo) dictation software. It may contain incorrect words, [...] your Primary Care Provider. Call [facility] ([phone]) or report to the closest Emergency Room. Call 911 if necessary. 01/26/18 0000 <Electronically signed by Agata Morejon MD> Date Agata Morejon MD Cosigner Signature (If Indicated): Date CC: Michael Muse MD CBC W/DIFF, AUTOMATED Collected: 01/25/2018 Status: F Source: [place] 10:01 PM [facility] REPOSITORY TYPE CODE TESTS RESULT OUT OF [...] Performed By: #### L100.0100 #### [facility] Laboratory [address] [place], [address] PROTHROMBIN TIME W/INR Collected: 01/25/2018 Status: F Source: [place] 10:01 PM [facility] REPOSITORY TYPE CODE TESTS RESULT OUT OF RANGE REFERENCE UNITS LAB L300.4150 11.7-14.9 SECONDS High PROTIME 23.8 LAB L300.4200 Normal INR 2.1 Performed By: #### L300.3900 #### [facility] Laboratory [address] [place], [address] BASIC METABOLIC Collected: 01/25/2018 Status: F Source: [place] PROFILE (BMP) 10:01 PM [facility] REPOSITORY Order Comment: 'TROP' Serial specimen #1, [...] By: #### L500.2500, L501.4010 #### [facility] Laboratory [address] [place], [address] TROPONIN-I Collected: 01/25/2018 Status: F Source: [place] 10:01 PM [facility] REPOSITORY Order Comment: 'TROP' Serial specimen #1, #2, #3, or #4: 1 TYPE CODE TESTS RESULT OUT OF RANGE REFERENCE UNITS LAB L501.4010 <0.06 ng/mL Normal < 0.02 TROPONIN-I Result Comment: TROPONIN-I EXPECTED VALUES <0.05 NEGATIVE 0.06 - 0.59 AT RISK OF VA > OR = 0.60 SUGGEST VA Performed By: #### L500.2500, L501.4010 #### [facility] Laboratory [address] [place], [address] BNP,B-TYPE NATRIURETIC Collected: 01/25/2018 Status: F Source: [place] PEPTIDE 10:01 PM [facility] REPOSITORY TYPE CODE TESTS RESULT OUT OF RANGE REFERENCE UNITS LAB L503.6620 0-100 pg/mL High B-TYPE 1252.2 ADELAIDA PEP Performed By: #### L503.6620 #### [facility] Laboratory [address] [place], [address] CHEST 1 VIEW Observed: 01/25/2018 Status: F Source: [place] (PORTABLE) 9:28 PM [facility] REPOSITORY [facility] Imaging Services [address] [place] [address] Chest 1 View (Portable) MR#: [id number] Acct: [id number] Name: CHRISTIANO VALVERDE Rep #: [id number] : 1940 F 77 From: Maurice Da Silva PCP: Michael Muse MD Status: REG ER Study: Chest 1 View (Portable) Date of Exam: 01/25/18 Exam# [id number] Ordering Dr: Agata Morejon MD STUDY: X-RAY [...] IMPRESSION: No infiltrate. Stable cardiomegaly. Electronically Signed: Mauirce Da Silva DO at 22:28 EDT , Service support , CC: Agata Morejon MD; Michael Muse MD Tub Operator: Signed ABDOMEN/PELVIS WITHOUT Observed: 01/25/2018 Status: F Source: [place] CONT 9:28 PM [facility] REPOSITORY [facility] Imaging Services [address] [place] [address] Abdomen/Pelvis without Cont MR#: [id number] Acct: [id number] Name: CHRISTIANO VALVERDE Rep #: [id number] : 1940 F 77 From: Shahana Maddox MD PCP: Michael Muse MD Status: REG ER Study: Abdomen/Pelvis without Cont Date of Exam: 01/25/18 Exam# [id number] Ordering Dr: Agata Morejon MD CT Abdomen [...] CC: Agata Morejon MD; Michael Muse MD Tub Operator: Signed PACEMAKER CHECK Observed: 01/22/2018 Status: F Source: [place] 4:41 PM [facility] REPOSITORY [facility] [address] [place] [address] Pacemaker Check Date of Service: 01/09/18 1541 MR#: [id number] Acct: [id number] Name: CHRISTIANO VALVERDE Rep #: [id number] : 1940 From: Angelica Kim Age/Sex: 77/F Location: [facility] Status: Signed Comments Summary Comments: Remote Bi-VICD [...] Location: remote Interview Reason: scheduled follow up Veterans Services Specialist: [employer] Name: Viva XT BODY SHOP FLOORPERSON-D Model: [id number] Serial #: [id number] Implant Date: 05/22/17 Year(s): 0 Implant Physician: Dr. Kwasi Fisher/[facility] Patient Characteristics Atrial Indication: Permanent atrial fibrillation Ventricular Indication: Nonsustained VT Patient Substrate: Nonischemic cardiomyopathy (Hypertrophic) Ejection fraction %: 20 to 24 (07/2016) By: Echo Underlying rhythm: Atrial fibrillation Pacemaker Dependent: Yes (no intrinsic R waves) Device Characteristics Device: Biventricular Type: Implantable defibrillator Remote Follow-Up: [employer] Leads Lead #1 Veterans Services Specialist Lead 1: Medtronic Model Lead 1: 5076 Serial# Lead 1: [id number] Date Implanted Lead 1: 07/16/07 Position Lead 1: RA Lead #2 Veterans Services Specialist Lead 2: Medtronic Model Lead 2: 6947 Serial# Lead 2: [id number] Date Implanted Lead 2: 07/16/07 Position Lead 2: RV Lead #3 Veterans Services Specialist Lead 3: Medtronic Model Lead 3: 4193 Serial# Lead 3: [id number] Date Implanted Lead 3: 07/16/07 Position Lead [...] failure J96.10 01/22/18 1519 <Electronically signed by Aneglica Kim > Date Angelica Kim 01/22/18 1641<Electronically signed by Carlos Mcallister MD> Cosigner Signature: Date (if applicable) Carlos Mcallister MD CC: PROTHROMBIN TIME W/INR Collected: 01/22/2018 Status: F Source: [place] 10:30 AM [facility] REPOSITORY Order Comment: [place] TYPE CODE TESTS RESULT OUT OF RANGE REFERENCE UNITS LAB L300.4150 11.7-14.9 SECONDS High PROTIME 34.5 LAB L300.4200 Normal INR 3.4 Performed By: #### L300.3900 #### [facility] [address] [place], [address] PROTHROMBIN TIME W/INR Collected: 12/30/2017 Status: F Source: [place] 10:45 AM [facility] REPOSITORY Order Comment: HOMEDRAW ORDERED PT, INTERNAL ORDER BY MY MATTHEWS FOR [facility] TYPE CODE TESTS RESULT OUT OF RANGE REFERENCE UNITS LAB L300.4150 11.7-14.9 SECONDS High PROTIME 24.4 LAB L300.4200 Normal INR 2.2 Performed By: #### L300.3900, L500.2500 #### [facility] Laboratory [address] [place], [place], [address] BASIC METABOLIC Collected: 12/30/2017 Status: F Source: [place] PROFILE (BMP) 10:45 AM [facility] REPOSITORY Order Comment: HOMEDRAW ORDERED PT, INTERNAL [...] By: #### L300.3900, L500.2500 #### [facility] Laboratory [address] [place], [address] PROTHROMBIN TIME W/INR Collected: 12/16/2017 Status: F Source: [place] 10:40 AM [facility] REPOSITORY Order Comment: [place] TYPE CODE TESTS RESULT OUT OF RANGE REFERENCE UNITS LAB L300.4150 11.7-14.9 SECONDS High PROTIME 28.6 LAB L300.4200 Normal INR 2.7 Performed By: #### L300.3900 #### [facility] Laboratory [address] [place], [address] CARDIOLOGY VISIT Observed: 12/13/2017 Status: F Source: [place] REPORT 12:02 PM [facility] REPOSITORY [facility] [address] [place] [address] OFFICE VISIT Date of Service: 12/12/17 MR#: [id number] Acct: [id number] Name: CHRISTIANO VALVERDE Rep #: [id number] : 1940 Provider: VAHID Matthews Age/Sex: 77/F Location: [facility] Status: Signed HPI HPI Details: CHRISTIANO VALVERDE, is a 77 F who presents to the office today for a cardiovascular outpatient follow-up. 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 thyroid, pork [From Kipling Thyroid] Allergy (Severe, Verified 12/12/17 15:33) Unknown [...] 12/12/17] Ejection fraction %: 20 to 24 [facility] Medical History snf current use of anticoagulant (Chronic) Paroxysmal atrial [...] asked to keep in touch with primary archivist political history or primary care physician for this. Plan [...] type D64.9 Anemia type: unspecified type 12/12/17 7926 <Electronically signed by My XAVIER> Date My Matthews DIRECTOR OF RELIGIOUS LIFE-C 12/13/17 1202<Electronically signed by Otilio Mitchell MD> Cosigner Signature: Date (if applicable) Otilio Mitchell MD CC: Michael Muse MD PROTHROMBIN TIME W/INR Collected: 11/25/2017 Status: F Source: [place] 10:05 AM [facility] REPOSITORY TYPE CODE TESTS RESULT OUT OF RANGE REFERENCE UNITS LAB L300.4150 11.7-14.9 SECONDS High PROTIME 29.4 LAB L300.4200 Normal INR 2.8 Performed By: #### L300.3900 #### [facility] Laboratory [address] [place], [address] BNP,B-TYPE NATRIURETIC Collected: 11/14/2017 Status: F Source: [place] PEPTIDE 12:22 PM [facility] REPOSITORY TYPE CODE TESTS RESULT OUT OF RANGE REFERENCE UNITS LAB L503.6620 0-100 pg/mL High B-TYPE 776.2 ADELAIDA PEP Performed By: #### L503.6620 #### [facility] Laboratory [address] [place], [address] COMPREHENSIVE METABOLIC Collected: 11/14/2017 Status: F Source: [place] PROFIL 12:22 PM [facility] REPOSITORY Order Comment: Order Date: 11/14/17 Order [...] L500.4050, L501.9520, L100.0100, L506.1000 #### [facility] Laboratory [address] [place], [place], [address] THYROID STIM HORMONE Collected: 11/14/2017 Status: F Source: ERICA (TSH) 12:22 PM [facility] REPOSITORY Order Comment: Order Date: 11/14/17 Order Info: 0786-1 - CMP Order Info: 3016-3 - TSH TYPE CODE TESTS RESULT OUT OF RANGE REFERENCE UNITS LAB L501.9520 0.358-3.74 uIU/mL High TSH 6.17 Performed By: #### L500.4050, L501.9520, L100.0100, L506.1000 #### [facility] [place] [place], [address] CBC W/DIFF, AUTOMATED Collected: 11/14/2017 Status: F Source: ERICA 12:22 PM [facility] REPOSITORY Order Comment: Order Date: 11/14/17 Order [...] L500.4050, L501.9520, L100.0100, L506.1000 #### [facility] Laboratory [address] [place], [address] VITAMIN D,25 HYDROXY Collected: 11/14/2017 Status: F Source: ERICA 12:22 PM [facility] REPOSITORY Order Comment: Order Date: 11/14/17 Order Info: 99472-7 - VITD25 TYPE CODE TESTS RESULT OUT [...] L500.4050, L501.9520, L100.0100, L506.1000 #### [facility] Laboratory [address] [place], [address] PROTHROMBIN TIME W/INR Collected: 11/11/2017 Status: F Source: ERICA 10:50 AM [facility] REPOSITORY TYPE CODE TESTS RESULT OUT OF RANGE REFERENCE UNITS LAB L300.4150 11.7-14.9 SECONDS High PROTIME 26.4 LAB L300.4200 Normal INR 2.5 Performed By: #### L300.3900 #### [facility] Laboratory [address] [place], [address] BONE SURVEY COMP(AXIAL Observed: 10/31/2017 Status: F Source: ERICA AND APPEND) 2:34 PM [facility] REPOSITORY [facility] Imaging Services [address] [place] [address] Bone Survey Comp(Axial AND Append) MR#: [id number] Acct: [id number] Name: CHRISTIANO VALVERDE Rep #: [id number] : 1940 F 77 From: Phuc Kennedy DO PCP: Michael Muse MD Status: REG CLI Study: Bone Survey Comp(Axial AND Append) Date of Exam: 10/31/17 Exam# [id number] Ordering Dr: Ciara Arambula MD STUDY: X-RAY [...] Phuc Kennedy DO at 18:52 EST Tel [phone], Service support , CC: Michael Muse MD; Ciara Arambula MD Tub Operator: Signed PROTHROMBIN TIME W/INR Collected: 10/27/2017 Status: F Source: ERICA 11:25 AM [facility] REPOSITORY TYPE CODE TESTS RESULT OUT OF RANGE REFERENCE UNITS LAB L300.4150 11.7-14.9 SECONDS High PROTIME 23.3 LAB L300.4200 Normal INR 2.2 Performed By: #### L300.3900 #### [facility] [address] [place], [address] OFFICE VISIT REPORT Observed: 10/20/2017 Status: F Source: ERICA 8:16 AM [facility] REPOSITORY [place] [address] [place] [address] OFFICE VISIT Date of Service: 10/07/17 MR#: [id number] Acct: [id number] Patient: CHRISTIANO VALVERDE Rep #: [id number] : 1940 Provider: Angelica Kim Age/Sex: 77/F [...] Location: remote Interview Reason: scheduled follow up Veterans Services Specialist: [employer] Name: Viva XT BODY SHOP FLOORPERSON-D Model: [id number] Serial #: [id number] Implant Date: 05/22/17 Year(s): 0 Implant Physician: Dr. Kwasi Fisher/[facility] Patient Characteristics Atrial Indication: Permanent atrial fibrillation Ventricular Indication: Nonsustained VT Patient Substrate: Nonischemic cardiomyopathy (Hypertrophic) Ejection fraction %: 20 to 24 (07/2016) By: Echo Underlying rhythm: Atrial fibrillation Pacemaker Dependent: Yes (no intrinsic R waves) Device Characteristics Device: Biventricular Type: Implantable defibrillator Remote Follow-Up: [employer] Lead #1 [facility] Specialist Lead 1: Medtronic Model Lead 1: 5076 Serial# Lead 1: [id number] Date Implanted Lead 1: 07/16/07 Position Lead 1: RA Lead #2 Veterans Services Specialist Lead 2: Medtronic Model Lead 2: 6947 Serial# Lead 2: [id number] Date Implanted Lead 2: 07/16/07 Position Lead 2: RV Lead #3 Veterans Services Specialist Lead 3: Medtronic Model Lead 3: 4193 Serial# Lead 3: [id number] Date Implanted Lead 3: 07/16/07 Position Lead [...] SEVERITY SOURCE 08/07/2018 Drug thyroid, Unknown SV [place] Allergy/416 pork/[id number](RXN Community 954260([facility] ED CT) Repository 08/07/2018 Drug levothyroxine Pt states it SV Erica Allergy/416 sodium/[id number](R caused renal Community 174868([facility] XNORM) failure. [facility] ED CT) Repository 08/07/2018 Drug latex/[id number](RX Rash [place] Allergy/416 NORM) Community 439545([facility] ED CT) Repository ENCOUNTERS ENCOUNTERS ADMIT/DISCHARGE ACCOUNT ADMITTING ENCOUNTER LOCATION SOURCE NUMBER CLASS 10/15/2018 [id number] Ambulatory Erica Erica 1 [facility] ing:LAB Repository 10/12/2018 [id number] Ambulatory Ewing Ewing 8 [facility] ing:LABSPEC Repository 10/09/2018 [id number] Ambulatory Erica Ewing 8 [facility] ing:LAB Repository 10/07/2018 [id number] Ambulatory Erica Erica 4 [facility] ing:LAB Repository 10/05/2018 [id number] Ambulatory Erica Ewing 9 [facility] ing:LAB Repository 09/28/2018 [id number] Ambulatory Ewing Ewing 3 [facility] ing:LAB Repository 09/18/2018 [id number] Ambulatory Erica Erica 9 [facility] ing:LAB Repository 08/27/2018 [id number] Ambulatory Erica Erica 3 [facility] ing:LAB Repository 08/20/2018 [id number] Ambulatory Erica Ewing 4 [facility] ing:LAB Repository 08/07/2018/ [id number] Ambulatory BMSBuilding:B Erica 8 2 [facility] Repository 08/06/2018 [id number] Ambulatory Ewing Erica 6 [facility] ing:LAB Repository 07/26/2018/ [id number] Agyepong, Inpatient Ewing Erica 8 7 Richie Encounter [facility] ing:PCURoom: Repository [id number]: 1 07/26/2018 [id number] Agyepong, Ambulatory BMSBuilding:B Erica 5 [place].[facility] Repository 07/26/2018 [id number] Agyepong, Ambulatory BMSBuilding:B Ewing 4 [place] MS.[facility] Repository 07/26/2018 [id number] Agyepong, Ambulatory BMSBuilding:B Erica 0 [place].[facility] Repository 07/26/2018/ [id number] Ambulatory BMSBuilding:W Ewing 8 7 [facility] Repository 07/26/2018 [id number] Agyepong, Ambulatory BMSBuilding:B Ewing 1 [place].[facility] Repository 07/22/2018/ [id number] Ambulatory BMSBuilding:B Ewing 8 9 [facility] Repository 07/20/2018 [id number] [facility] Repository 07/15/2018 [id number] Ambulatory Erica Ewing 3 [facility] ing:LAB Repository 07/06/2018 [id number] Ambulatory Ewing Ewing 3 [facility] ing:LAB Repository 06/29/2018 [id number] Ambulatory Erica Erica 5 [facility] ing:LAB Repository 06/19/2018 [id number] Ambulatory BMSBuilding:B Ewing 3 [facility] Repository 06/11/2018 [id number] Ambulatory Erica Ewing 3 [facility] ing:LAB Repository 06/04/2018 [id number] Ambulatory Erica [facility]wing 0 [facility] Repository 05/28/2018 [id number] Ambulatory Ewing Erica 8 [facility] ing:LAB Repository 05/19/2018 [id number] Ambulatory Ewing Ewing 7 [facility] ing:LAB Repository 04/27/2018 [id number] Ambulatory Erica Erica 6 [facility] ing:LABSPEC Repository 04/10/2018/ [id number] Ambulatory BMSBuilding:B Ewing 8 7 [facility] Repository 04/08/2018 [id number] Ambulatory Ewing Ewing 3 [facility] ing:LAB Repository 03/24/2018 [id number] Ambulatory Ewing Ewing 3 [facility] ing:LABSPEC Repository 03/17/2018 [id number] Ambulatory Ewing Ewing 2 [facility] ing:LABSPEC Repository 03/13/2018 [id number] Ambulatory BMSBuilding:B Erica 7 [facility] Repository 03/06/2018 [id number] Ambulatory BMS Erica 9 [facility] Repository 03/03/2018 [id number] Ambulatory Ewing Erica 1 [facility] ing:LABSPEC Repository 02/17/2018 [id number] Ambulatory Ewing Ewing 5 [facility] ing:LABSPEC Repository 02/13/2018/ [id number] Ambulatory BMSBuilding:B Ewing 8 4 [facility] Repository 02/10/2018 [id number] Ambulatory Erica Ewing 9 [facility] ing:LABSPEC Repository 02/09/2018 [id number] Ambulatory BMS Ewing 8 [facility] Repository 02/06/2018 [id number] Ambulatory Erica Erica 2 [facility] ing:LAB Repository 01/25/2018/ [id number] Ashelf, Inpatient Erica Ewing 8 4 Ghasem Encounter [facility] ing:PCURoom: Repository [id number]: 1 01/25/2018 [id number] Ashelf, Ambulatory BMSBuilding:B Ewing 0 Ghasem MS.[facility] Repository 01/25/2018 [id number] [facility], Ambulatory BMSBuilding:B Ewing 7 Ghasem MS.[facility] Repository 01/23/2018/ [id number] Ambulatory BMSBuilding:B Erica 8 5 [facility] Repository 01/22/2018 [id number] Ambulatory Erica Ewing 8 [facility] Hospital ing:LABSPEC Repository 01/15/2018 [id number] Ambulatory BMS Erica 3 [facility] Repository 01/09/2018/ [id number] Ambulatory BMSBuilding:B Erica 8 2 [facility] Repository 12/30/2017 [id number] Ambulatory Erica Ewing 4 [facility] ing:LABSPEC Repository 12/29/2017 [id number] Ambulatory BMSBuilding:B Erica 0 [facility] Repository 12/16/2017 [id number] Ambulatory Erica Erica 4 [facility] Hospital ing:LABSPEC Repository 12/12/2017/03/23 [id number] Ambulatory BMSBuilding:B Ewing 8 7 [facility] Repository 11/25/2017 [id number] Ambulatory Ewing Erica 8 [facility] ing:LAB Repository 11/14/2017 [id number] Ambulatory Ewing Ewing 6 [facility] ing:MFPLAB Repository 11/11/2017 [id number] Ambulatory Ewing Erica 0 [facility] ing:LAB Repository 11/07/2017 [id number] Ambulatory Ewing Ewing 6 [facility] ing:CT Repository 10/31/2017 [id number] Ambulatory Erica Ewing 3 [facility] ing:RAD Repository 10/28/2017 [id number] Ambulatory Ewing Ewing 3 [facility] ing:OMD Repository 10/28/2017 [id number] Ambulatory BMSBuilding:B Ewing 7 [place] Repository 10/27/2017 [id number] Ambulatory Ewing Ewing 2 [facility] ing:LAB Repository 10/07/2017/ [id number] Ambulatory BMSBuilding:B Erica 8 0 [facility] Repository PAYERS PAYERS ENCOUNTER GUARANTOR PAYER SUBSCRIBER SOURCE 10/15/2018 CHRISTIANO C Primary CHRISTIANO C Erica [id number] DEER Insurance:MEDICARE BUTCHERDOB: [facility], PART A BPolicy [id number] of [facility] Hospit[facility] [address]Tsv: Number: Repository [id number] () Date:2018-10-15 10/15/2018 Secondary CHRISTIANO C Erica Insurance:ANTHEMPolic BUTCHERDOB: Community y Number: [id number] Hospital [id number] Repository Date:3578-53-89[address] [address]TY: 10/15/2018 Tertiary NOT GIVENUNK Ewing Insurance:SELF PAY [facility] Number: Effective Repository Date:2018-10-15 10/12/2018 CHRISTIANO C Primary CHRISTIANO C Ewing [id number] DEER Insurance:MEDICARE BUTCHERDOB: [facility], PART A [facility] [id number] of New Mexico Hospitals [address]Oro: Number: Repository [id number] () Date:2018-10-12 10/12/2018 Secondary CHRISTIANO C Erica Insurance:ANTHEMPolic BUTCHERDOB: Community y Number: [id number] [id number] Repository Date:8240-35-88[address]XEHTQCB, [place] [address]PL: 10/12/2018 Tertiary NOT GIVENUNK Erica Insurance:SELF PAY [facility] Number: Effective Repository Date:2018-10-12 10/09/2018 CHRISTIANO C Primary CHRISTIANO C Erica [id number] DEER Insurance:MEDICARE BUTCHERDOB: [facility], PART A [facility] [id number] of New Mexico Hospitals [address]47[address]Qoz: Number: Repository [id number] () Date:2018-10-09 10/09/2018 Secondary CHRISTIANO C Ewing Insurance:ANTHEMPolic BUTCHERDOB: Community y Number: [id number] Hospital [id number] Repository Date:7192-89-81[address] [address]WI: 10/09/2018 Tertiary NOT GIVENUNK Erica Insurance:SELF PAY [facility] Number: Effective Repository Date:2018-10-09 10/07/2018 CHRISTIANO C Primary CHRISTIANO C Ewing [id number] DEER Insurance:MEDICARE BUTCHERDOB: [facility], PART A [facility] [id number] of New Mexico Hospitals 164[address]Tkk: Number: Repository [id number] () Date:2018-10-07 10/07/2018 Secondary CHRISTIANO C Erica Insurance:ANTHEMPolic BUTCHERDOB: Community y Number: [id number] Hospital [id number] Repository Date:2033-76-[address] [address]XA: 10/07/2018 Tertiary NOT GIVENUNK Erica Insurance:SELF PAY [facility] Number: Effective Repository Date:2018-10-07 10/05/2018 CHRISTIANO C Primary CHRISTIANO C Ewing [id number] DEER Insurance:MEDICARE BUTCHERDOB: Community [place] [facility], [place] A [facility] [id number] of New Mexico Hospitals [address]Sjg: Number: Repository [id number] (HP) Date:2018-10-05 10/05/2018 Secondary CHRISTIANO C Ewing Insurance:ANTHEMPolic BUTCHERDOB: Community y Number: [id number] Hospital [id number] Repository Date:0591-83-47PM [address] [place] [address] [place] [address]XY: 10/05/2018 Tertiary NOT GIVENUNK Ewing Insurance:SELF PAY [facility] Number: Effective Repository Date:2018-10-05 09/28/2018 CHRISTIANO C Primary CHRISTIANO C Ewing [id number] DEER Insurance:MEDICARE BUTCHERDOB: Community [place] [facility], PART A [facility] [id number] of New Mexico Hospitals [address]Tiv: Number: Repository [id number] () Date:2018-09-28 09/28/2018 Secondary CHRISTIANO C Ewing Insurance:ANTHEMPolic BUTCHERDOB: Community y Number: [id number] Hospital [id number] Repository Date:2556-55-57[address]VLWQOHG, [place] [address]ZR: 09/28/2018 Tertiary NOT GIVENUNK Erica Insurance:SELF PAY [facility] Number: Effective Repository Date:2018-09-28 09/18/2018 CHRISTIANO C Primary CHRISTIANO C Erica [id number] DEER Insurance:MEDICARE BUTCHERDOB: Community [place] [facility], PART A [facility] [id number] Hospital [place] [address]Tps: Number: Repository [id number] (HP) Date:2018-09-18 09/18/2018 Secondary CHRISTIANO C Ewing Insurance:ANTHEMPolic BUTCHERDOB: Community y Number: [id number] Hospital [id number] Repository Date:8909-11-75UO [address]CRAMV [place] [address]IY: 09/18/2018 Tertiary NOT GIVENUNK Erica Insurance:SELF PAY [facility]: Effective Repository Date:2018-09-18 08/27/2018 CHRISTIANO C Primary CHRISTIANO C Erica [id number] DEER Insurance:MEDICARE BUTCHERDOB: Community [place], PART A [facility] [id number] of New Mexico Hospitals [address]Ppm: Number: Repository [id number] () Date:2018-08-27 08/27/2018 Secondary CHRISTIANO C Ewing Insurance:ANTHEMPolic BUTCHERDOB: Community y Number: [id number] Hospital [id number] Repository Date:9005-13-60XA [address]GLNPT [place] [address]GL: 08/27/2018 Tertiary NOT GIVENUNK Ewing Insurance:SELF PAY [facility] Number: Effective Repository Date:2018-08-27 08/20/2018 CHRISTIANO C Primary CHRISTIANO C Ewing [id number] DEER Insurance:MEDICARE BUTCHERDOB: Community [place], PART A [facility] [id number] of New Mexico Hospitals [address]Nye: Number: Repository [id number] () Date:2018-08-20 08/20/2018 Secondary CHRISTIANO C Erica Insurance:ANTHEMPolic BUTCHERDOB: Community y Number: [id number] Hospital [id number] Repository Date:6239-51-40[address]CKQSZY, [place] [address]RP: 08/20/2018 Tertiary NOT GIVENUNK Ewing Insurance:SELF PAY [facility] Number: Effective Repository Date:2018-08-20 08/07/2018 CHRISTIANO C Primary CHRISTIANO C Ewing [id number] DEER Insurance:MEDICARE BUTCHERDOB: Community [place], PART A [facility] [id number] of New Mexico Hospitals [address]Txo: Number: Repository [id number] (HP) Date:2018-07-31 08/07/2018 Secondary CHRISTIANO C Ewing Insurance:ANTHEMPolic BUTCHERDOB: Community y Number: [id number] Hospital [id number] Repository Date:7105-43-92UX [address] [place] [address] [place] [address]VN: 08/07/2018 Tertiary NOT GIVENUNK Erica Insurance:SELF PAY [facility] Number: Effective Repository Date:2018-08-07 08/06/2018 CHRISTIANO C Primary CHRISTIANO C Ewing [id number] DEER Insurance:MEDICARE BUTCHERDOB: [facility], PART A [facility] [id number] of New Mexico Hospitals [address]Ilr: Number: Repository [id number] (HP) Date:2018-08-06 08/06/2018 Secondary CHRISTIANO C Erica Insurance:ANTHEMPolic BUTCHERDOB: Community y Number: [id number] Hospital [id number] Repository Date:0131-68-43HZ [address] [place] [address] [place] [address]YN: 08/06/2018 Tertiary NOT GIVENUNK Erica Insurance:SELF PAY [facility] Number: Effective Repository Date:2018-08-06 07/26/2018 CHRISTIANO C Primary CHRISTIANO C Erica [id number] DEER Insurance:MEDICARE BUTCHERDOB: [facility], PART A [facility] [id number] Hospital [place] [address]Zgn: Number: Repository [id number] (HP) Date:2018-07-25 07/26/2018 Secondary CHRISTIANO C Ewing Insurance:ANTHEMPolic BUTCHERDOB: Community y Number: [id number] Hospital [id number] Repository Date:3307-36-05QN [address]DTSHSFQ, [place] [address]TG: 07/26/2018 Tertiary NOT GIVENUNK Erica Insurance:SELF PAY [facility] Number: Effective Repository Date:2018-07-25 07/26/2018 CHRISTIANO C Primary CHRISTIANO C Ewing [id number] DEER Insurance:MEDICARE BUTCHERDOB: Community [place], PART A [facility] [id number] of New Mexico Hospitals [address]Shi: Number: Repository [id number] (HP) Date:2018-07-25 07/26/2018 Secondary CHRISTIANO C Ewing Insurance:ANTHEMPolic BUTCHERDOB: Community y Number: [id number] Hospital [id number] Repository Date:4400-74-13FA [address] [place] [address] [place] [address]TU: 07/26/2018 Tertiary NOT GIVENUNK Erica Insurance:SELF PAY [facility] Number: Effective Repository Date:2018-07-26 07/26/2018 CHRISTIANO C Primary CHRISTIANO C Erica [id number] DEER Insurance:MEDICARE BUTCHERDOB: Community [place], PART A [facility] [id number] of New Mexico Hospitals [address]Pfh: Number: Repository [id number] (HP) Date:2018-07-25 07/26/2018 Secondary CHRISTIANO C Ewing Insurance:ANTHEMPolic BUTCHERDOB: Community y Number: [id number] Hospital [id number] Repository Date:7699-57-93UD [address] [place] [address]JR: 07/26/2018 Tertiary NOT GIVENUNK Erica Insurance:SELF PAY [facility] Number: Effective Repository Date:2018-07-26 07/26/2018 CHRISTIANO C Primary CHRISTIANO C Erica [id number] DEER Insurance:MEDICARE BUTCHERDOB: Community [place], PART A [facility] [id number] [place] [address]Met: Number: Repository [id number] (HP) Date:2018-07-25 07/26/2018 Secondary CHRISTIANO C Erica Insurance:ANTHEMPolic BUTCHERDOB: Community y Number: [id number] Hospital [id number] Repository Date:7384-55-34JQ [address]DDIVJJY, [place] [address]CQ: 07/26/2018 Tertiary NOT GIVENUNK Erica Insurance:SELF PAY [facility] Number: Effective Repository Date:2018-07-26 07/26/2018 CHRSITIANO C Primary CHRISTIANO C Ewing [id number] DEER Insurance:MEDICARE BUTCHERDOB: Community [facility], PART A [facility] [id number] of New Mexico Hospitals [address]32[address]Egm: Number: Repository [id number] () Date:2018-07-25 07/26/2018 Secondary CHRISTIANO C Ewing Insurance:ANTHEMPolic BUTCHERDOB: Community y Number: [id number] Hospital [id number] Repository Date:0559-50-66[address]EUFXXZP, [place] [address]HK: 07/26/2018 Tertiary NOT GIVENUNK Erica Insurance:SELF PAY [facility] Number: Effective Repository Date:2018-07-26 07/26/2018 CHRISTIANO C Primary CHRISTIANO C Erica [id number] DEER Insurance:MEDICARE BUTCHERDOB: [facility], PART A [facility] [id number] of New Mexico Hospitals [address]Ine: Number: Repository [id number] () Date:2018-07-25 07/26/2018 Secondary CHRISTIANO C Erica Insurance:ANTHEMPolic BUTCHERDOB: Community y Number: [id number] Hospital [id number] Repository Date:7823-52-06JF [address]PHFMAR [place] [address]BL: 07/26/2018 Tertiary NOT GIVENUNK Erica Insurance:SELF PAY [facility] Number: Effective Repository Date:2018-07-26 07/22/2018 CHRISTIANO C Primary CHRISTIANO C Ewing [id number] DEER Insurance:MEDICARE BUTCHERDOB: [facility], PART A [facility] [id number] of New Mexico Hospitals [address]Oic: Number: Repository [id number] () Date:2018-04-10 07/22/2018 Secondary CHRISTIANO C Ewing Insurance:ANTHEMPolic BUTCHERDOB: Community y Number: [id number] Hospital [id number] Repository Date:5109-77-72ME [address] [place] [address]XV: 07/22/2018 Tertiary NOT GIVENUNK Erica Insurance:SELF PAY [facility] Number: Effective Repository Date:2018-07-22 07/20/2018 CHRISTIANO C Primary CHIRSTIANO C Ewing [id number] DEER Insurance:MEDICARE BUTCHERDOB: [facility], PART A [facility] [id number] of New Mexico Hospitals [address]Wmz: Number: Repository [id number] () Date:2018-07-20 07/20/2018 Secondary CHRISTIANO C Ewing Insurance:ANTHEMPolic BUTCHERDOB: Community y Number: [id number] Hospital [id number] Repository Date:7804-14-06BU [address] [place] [address] [place] [address]DS: 07/20/2018 Tertiary NOT GIVENUNK Ewing Insurance:SELF PAY [facility] Number: Effective Repository Date:2018-07-20 07/15/2018 CHRISTIANO C Primary CHRISTIANO C Erica [id number] DEER Insurance:MEDICARE BUTCHERDOB: [facility], PART A [facility] [id number] of New Mexico Hospitals [address]Rnl: Number: Repository [id number] () Date:2018-07-15 07/15/2018 Secondary CHRISTIANO C Ewing Insurance:ANTHEMPolic BUTCHERDOB: Community y Number: [id number] Hospital [id number] Repository Date:1771-84-88DG [address]VTFGZBD, [place] [address]NB: 07/15/2018 Tertiary NOT GIVENUNK Erica Insurance:SELF PAY [facility] Number: Effective Repository Date:2018-07-15 07/06/2018 CHRISTIANO C Primary CHRISTIANO C Erica [id number] DEER Insurance:MEDICARE BUTCHERDOB: Community [place], PART A [facility] [id number] Hospital [place] [address]Rny: Number: Repository [id number] (HP) Date:2018-07-06 07/06/2018 Secondary CHRISTIANO C Ewing Insurance:ANTHEMPolic BUTCHERDOB: Community y Number: [id number] Hospital [id number] Repository Date:3434-97-38IU [address] [place] [address]DU: 07/06/2018 Tertiary NOT GIVENUNK Ewing Insurance:SELF PAY [facility] Number: Effective Repository Date:2018-07-06 06/29/2018 CHRISTIANO C Primary CHRISTIANO C Erica [id number] DEER Insurance:MEDICARE BUTCHERDOB: Community [place], PART A [facility] [id number] of New Mexico Hospitals [address]Rxv: Number: Repository [id number] () Date:2018-06-29 06/29/2018 Secondary CHRISTIANO C Ewing Insurance:ANTHEMPolic BUTCHERDOB: Community y Number: [id number] Hospital [id number] Repository Date:8250-81-55NZ [address] [place] [address]NJ: 06/29/2018 Tertiary NOT GIVENUNK Ewing Insurance:SELF PAY [facility] Number: Effective Repository Date:2018-06-29 06/19/2018 CHRISTIANO C Primary CHRISTIANO C Erica [id number] DEER Insurance:MEDICARE BUTCHERDOB: Community [place], PART A [facility] [id number] Hospital [place] [address]Sje: Number: Repository [id number] (HP) Date:2018-06-19 06/19/2018 Secondary CHRISTIANO C Erica Insurance:ANTHEMPolic BUTCHERDOB: Community y Number: [id number] Hospital [id number] Repository Date:1160-82-03GK [address] [place] [address]TH: 06/19/2018 Tertiary NOT GIVENUNK Ewing Insurance:SELF PAY [facility] Number: Effective Repository Date:2018-06-19 06/11/2018 CHRISTIANO C Primary CHRISTIANO C Ewing [id number] DEER Insurance:MEDICARE BUTCHERDOB: Community [facility], PART A [facility] [id number] of New Mexico Hospitals [address]Kco: Number: Repository [id number] () Date:2018-06-11 06/11/2018 Secondary CHRISTIANO C Ewing Insurance:ANTHEMPolic BUTCHERDOB: Community y Number: [id number] Hospital [id number] Repository Date:8766-53-54GJ [address] [place] [address]RD: 06/11/2018 Tertiary NOT GIVENUNK Erica Insurance:SELF PAY [facility] Number: Effective Repository Date:2018-06-11 06/04/2018 CHRISTIANO C Primary CHRISTIANO C Erica [id number] DEER Insurance:MEDICARE [facility] [id number] of New Mexico Hospitals [address]Ufq: Number: Repository [id number] () Date:2018-06-04 06/04/2018 Secondary CHRISTIANO C Ewing Insurance:ANTHEMPolic BUTCHERDOB: Community y Number: [id number] Hospital [id number] Repository Date:8954-97-16XJ [address] [place] [address]FR: 06/04/2018 Tertiary NOT GIVENUNK Erica Insurance:SELF PAY [facility] Number: Effective Repository Date:2018-06-04 05/28/2018 CHRISTIANO C Primary CHRISTIANO C Erica [id number] DEER Insurance:MEDICARE BUTCHERDOB: [facility] [id number] of New Mexico Hospitals [address]1913Sqg: Number: Repository [id number] () Date:2018-05-28 05/28/2018 Secondary CHRISTIANO C Ewing Insurance:ANTHEMPolic BUTCHERDOB: Community y Number: [id number] [facility] [id number] Repository Date:2239-62-19VO [address] [place] [address] 74334DC: 05/28/2018 Tertiary NOT GIVENUNK Erica Insurance:SELF PAY [facility] Number: Effective Repository Date:2018-05-28 05/19/2018 CHRISTIANO C Primary CHRISTIANO C Ewing [id number] DEER Insurance:MEDICARE BUTCHERDOB: [facility], PART A [facility] [id number] [facility] [address]Lkf: Number: Repository [id number] () Date:2018-05-19 05/19/2018 Secondary CHRISTIANO C Ewing Insurance:ANTHEMPolic BUTCHERDOB: Community y Number: [id number] Hospital [id number] Repository Date:6970-08-91QB [address] [place] [address] 29670FD: 05/19/2018 Tertiary NOT GIVENUNK Ewing Insurance:SELF PAY [facility] Number: Effective Repository Date:2018-05-19 04/27/2018 CHRISTIANO C Primary CHRISTIANO C Ewing [id number] DEER Insurance:MEDICARE BUTCHERDOB: [facility], PART A [facility] [id number] [place] [address]Xlh: Number: Repository [id number] () Date:2018-04-27 04/27/2018 Secondary CHRISTIANO C Erica Insurance:ANTHEMPolic BUTCHERDOB: Community y Number: [id number] [facility] [id number] Repository Date:1963-19-42DC [address] [place] [address] 76224SA: 04/27/2018 Tertiary NOT GIVENUNK Erica Insurance:SELF PAY [facility] Number: Effective Repository Date:2018-04-27 04/10/2018 CHRISTIANO C Primary CHRISTIANO C Ewing [id number] DEER Insurance:MEDICARE BUTCHERDOB: Community [place] [facility], [place] [facility] [id number] [place] [address]Hbs: Number: Repository [id number] (HP) Date:2018-01-09 04/10/2018 Secondary CHRISTIANO C Erica Insurance:ANTHEMPolic BUTCHERDOB: Community y Number: [id number] Hospital [id number] Repository Date:9722-28-08KP [address] [address]88[address]TE: 04/10/2018 Tertiary NOT GIVENUNK Erica Insurance:SELF PAY [facility] Number: Effective Repository Date:2018-04-10 04/08/2018 CHRISTIANO C Primary CHRISTIANO C Erica [id number] [place] Insurance:MEDICARE BUTCHERDOB: Community [place] [facility], [place] A [facility] [id number] of New [facility] Hospitals [address]Vyb: Number: Repository [id number] () Date:2018-04-08 04/08/2018 Secondary CHRISTIANO C Ewing Insurance:ANTHEMPolic BUTCHERDOB: Community y Number: [id number] Hospital [id number] Repository Date:8820-42-51WU [address] [place] [address] 63132LT: 04/08/2018 Tertiary NOT GIVENUNK Erica Insurance:SELF PAY [facility] Number: Effective Repository Date:2018-04-08 03/24/2018 CHRISTIANO C Primary CHRISTIANO C Erica [id number] DE[place] Insurance:MEDICARE BUTCHERDOB: Community [place] [facility], PART A [facility] [id number] [place] [address]Lwu: Number: Repository [id number] (HP) Date:2018-03-24 03/24/2018 Secondary CHRISTIANO C Ewing Insurance:ANTHEMPolic BUTCHERDOB: Community y Number: [id number] Hospital [id number] Repository Date:7392-32-56XN [address] [place] [address] 74685YY: 03/24/2018 Tertiary NOT GIVENUNK Erica Insurance:SELF PAY [facility] Number: Effective Repository Date:2018-03-24 03/17/2018 CHRISTIANO C Primary CHRISTIANO C Ewing [id number] [place] Insurance:MEDICARE BUTCHERDOB: [facility] [id number] of New Mexico Hospitals 978[address]Azs: Number: Repository [id number] () Date:2018-03-17 03/17/2018 Secondary CHRISTIANO C Erica Insurance:ANTHEMPolic BUTCHERDOB: Community y Number: [id number] Hospital [id number] Repository Date:7216-26-18QQ [address] [place] [address] 040[address]LJ: 03/17/2018 Tertiary NOT GIVENUNK Erica Insurance:SELF PAY [facility] Number: Effective Repository Date:2018-03-17 03/13/2018 CHRISTIANO C Primary CHRISTIANO C Erica [id number] DEER Insurance:MEDICARE [facility] [id number] of New Mexico Hospitals [address]Vsi: Number: Repository [id number] () Date:2018-02-13 03/13/2018 Secondary CHRISTIANO C Ewing Insurance:ANTHEMPolic BUTCHERDOB: Community y Number: [id number] Hospital [id number] Repository Date:8764-82-64DY [address], [place] [address]BE: 03/13/2018 Tertiary NOT GIVENUNK Ewing Insurance:SELF PAY [facility] Number: Effective Repository Date:2018-02-13 03/06/2018 CHRISTIANO C Primary CHRISTIANO C Ewing [id number] DEER Insurance:MEDICARE BUTCHERDOB: [facility], PART A [facility] [id number] of New Mexico Hospitals [address]Jry: Number: Repository [id number] () Date:2018-03-06 03/06/2018 Secondary CHRISTIANO C Ewing Insurance:ANTHEMPolic BUTCHERDOB: Community y Number: [id number] Hospital [id number] Repository Date:5055-28-75AD [address] [place] [address] 33502IF: 03/06/2018 Tertiary NOT GIVENUNK Erica Insurance:SELF PAY [facility] Number: Effective Repository Date:2018-03-06 03/03/2018 CHRISTIANO C Primary CHRISTIANO C Erica [id number] [place] Insurance:MEDICARE BUTCHERDOB: [facility], PART A [facility] [id number] of New Mexico Hospitals [address]Dov: Number: Repository [id number] () Date:2018-03-03 03/03/2018 Secondary CHRISTIANO C Ewing Insurance:ANTHEMPolic BUTCHERDOB: Community y Number: [id number] Regional Medical [id number] Repository Date:7115-40-01FV [address] [place] [address] 54797UO: 03/03/2018 Tertiary NOT GIVENUNK Ewing Insurance:SELF PAY [facility] Number: Effective Repository Date:2018-03-03 02/17/2018 CHRISTIANO C Primary CHRISTIANO C Erica [id number] DE[place] Insurance:MEDICARE BUTCHERDOB: [facility], PART A [facility] [id number] of New Mexico Hospitals [address]Ari: Number: Repository [id number] () Date:2018-02-17 02/17/2018 Secondary CHRISTIANO C Erica Insurance:ANTHEMPolic BUTCHERDOB: Community y Number: [id number] Hospital [id number] Repository Date:2107-62-19ZC [address] [place] [address] 61278IL: 02/17/2018 Tertiary NOT GIVENUNK Erica Insurance:SELF PAY [facility] Number: Effective Repository Date:2018-02-17 02/13/2018 CHRISTIANO C Primary CHRISTIANO C Erica [id number] [place] Insurance:MEDICARE BUTCHERDOB: [facility] [id number] of New Mexico Hospitals [address]Cru: Number: Repository [id number] (HP) Date:2018-01-23 02/13/2018 Secondary CHRISTIANO C Erica Insurance:ANTHEMPolic BUTCHERDOB: Community y Number: [id number] Hospital [id number] Repository Date:0654-07-85ZL [address] [place] [address] 23186MH: 02/13/2018 Tertiary NOT GIVENUNK Erica Insurance:SELF PAY [facility] Number: Effective Repository Date:2018-01-27 02/10/2018 CHRISTIANO C Primary CHRISTIANO C Erica [id number] [place] Insurance:MEDICARE BUTCHERDOB: Community [facility] [id number] of New Mexico Hospitals 13092Jah: Number: Repository [id number] (HP) Date:2018-02-10 02/10/2018 Secondary CHRISTIANO C Erica Insurance:ANTHEMPolic BUTCHERDOB: Community y Number: [id number] Hospital [id number] Repository Date:9302-32-53XI [address] [place] [address] 82667GV: 02/10/2018 Tertiary NOT GIVENUNK Erica Insurance:SELF PAY [facility] Number: Effective Repository Date:2018-02-10 02/09/2018 CHRISTIANO C Primary CHRISTIANO C Erica [id number] [place] Insurance:MEDICARE BUTCHERDOB: Community [place] [facility], [place] [facility] [id number] [place] [address]Bts: Number: Repository [id number] (HP) Date:2018-02-09 02/09/2018 Secondary CHRISTIANO C Erica Insurance:ANTHEMPolic BUTCHERDOB: Community y Number: [id number] Hospital [id number] Repository Date:0850-71-25RG [address] [place] [address] 89642PS: 02/09/2018 Tertiary NOT GIVENUNK Erica Insurance:SELF PAY [facility] Number: Effective Repository Date:2018-02-09 02/06/2018 CHRISTIANO C Primary CHRISTIANO C Ewing [id number] DE[place] Insurance:MEDICARE BUTCHERDOB: [facility], PART A [facility] [id number] of New Mexico Hospitals [address]Lgn: Number: Repository [id number] () Date:2018-02-06 02/06/2018 Secondary CHRISTIANO C Ewing Insurance:ANTHEMPolic BUTCHERDOB: Community y Number: [id number] Hospital [id number] Repository Date:4847-56-25RB [address] [place] [address] 25777KZ: 02/06/2018 Tertiary NOT GIVENUNK Erica Insurance:SELF PAY [facility] Number: Effective Repository Date:2018-02-06 01/25/2018 CHRISTIANO C Primary CHRISTIANO C Ewing [id number] [place] Insurance:MEDICARE BUTCHERDOB: [facility], PART A [facility] [id number] of New Mexico Hospitals [address]Qau: Number: Repository [id number] () Date:2018-01-25 01/25/2018 Secondary CHRISTIANO C Ewing Insurance:ANTHEMPolic BUTCHERDOB: Community y Number: [id number] Hospital [id number] Repository Date:0840-84-11ES [address] [place] [address] 47769BG: 01/25/2018 Tertiary NOT GIVENUNK Ewing Insurance:SELF PAY [facility] Number: Effective Repository Date:2018-01-25 01/25/2018 CHRISTIANO C Primary CHRISTIANO C Erica [id number] DE[place] Insurance:MEDICARE BUTCHERDOB: [facility], PART A [facility] [id number] of New Mexico Hospitals 05068Wli: Number: Repository [id number] () Date:2018-01-25 01/25/2018 Secondary CHRISTIANO C Ewing Insurance:ANTHEMPolic BUTCHERDOB: Community y Number: [id number] Regional Medical [id number] Repository Date:7926-91-25DE [address] [place] [address] 05358YA: 01/25/2018 Tertiary NOT GIVENUNK Erica Insurance:SELF PAY [facility] Number: Effective Repository Date:2018-01-25 01/25/2018 CHRISTIANO C Primary CHRISTIANO C Ewing [id number] DE[place] Insurance:MEDICARE BUTCHERDOB: [facility], PART A [facility] [id number] of New Mexico Hospitals 34220Hoy: Number: Repository [id number] () Date:2018-01-25 01/25/2018 Secondary CHRISTIANO C Erica Insurance:ANTHEMPolic BUTCHERDOB: Community y Number: [id number] Regional Medical [id number] Repository Date:3362-55-68WE [address], [place] [address]GD: 01/25/2018 Tertiary NOT GIVENUNK Ewing Insurance:SELF PAY [facility] Number: Effective Repository Date:2018-01-25 01/23/2018 CHRISTIANO C Primary CHRISTIANO C Ewing [id number] DE[place] Insurance:MEDICARE [facility]CHERD[facility] [id number][place] Number: Repository [id number]: [phone] [id number] [phone] () Date:2017-10-25 01/23/2018 Secondary CHRISTIANO C Ewing Insurance:ANTHEMPolic BUTCHERDOB: Community y Number: [id number] Hospital [id number] Repository Date:0085-64-94RU [address] [place] [address] 37456OI: 01/23/2018 Tertiary NOT GIVENUNK Erica Insurance:SELF PAY [facility] Number: Effective Repository Date:2017-12-12 01/22/2018 CHRISTIANO C Primary CHRISTIANO C Erica [id number] DE[place] Insurance:MEDICARE BUTCHERDOB: [facility] [id number] of New Mexico Hospitals 14977Kuq: Number: Repository [id number] (HP) Date:2018-01-22 01/22/2018 Secondary CHRISTIANO C Erica Insurance:ANTHEMPolic BUTCHERDOB: Community y Number: [id number] Hospital [id number] Repository Date:7395-07-52HY [address] [place] [address] 63989WV: 01/22/2018 Tertiary NOT GIVENUNK Ewing Insurance:SELF PAY [facility] Number: Effective Repository Date:2018-01-22 01/15/2018 CHRISTIANO C Primary CHRISTIANO C Erica [id number] DE[place] Insurance:MEDICARE BUTCHERDOB: [facility] [id number] of New Mexico Hospitals 07157Qrj: Number: Repository [id number] () Date:2018-01-15 01/15/2018 Secondary CHRISTIANO C Ewing Insurance:ANTHEMPolic BUTCHERDOB: Community y Number: [id number] Hospital [id number] Repository Date:8773-69-71QI [address] [place] [address] 60934ET: 01/15/2018 Tertiary NOT GIVENUNK Erica Insurance:SELF PAY [facility] Number: Effective Repository Date:2018-01-15 01/09/2018 CHRISTIANO C Primary CHRISTIANO C Ewing [id number] DEER Insurance:MEDICARE BUTCHERDOB: Community [place] [facility], [place] A [facility] [id number] of New Mexico Hospitals 44622Ozd: Number: Repository [id number] () Date:2017-10-15 01/09/2018 Secondary CHRISTIANO C Ewing Insurance:ANTHEMPolic BUTCHERDOB: Community y Number: [id number] Hospital [id number] Repository Date:8997-21-77QP [address], [place] [address]IU: 01/09/2018 Tertiary NOT GIVENUNK Ewing Insurance:SELF PAY [facility] Number: Effective Repository Date:2018-01-09 12/30/2017 CHRISTIANO C Primary CHRISTIANO C Ewing [id number] [place] Insurance:MEDICARE BUTCHERDOB: [facility], PART A [facility] [id number] of New Mexico Hospitals 73672Gxf: Number: Repository [id number] () Date:2017-12-30 12/30/2017 Secondary CHRISTIANO C Ewing Insurance:ANTHEMPolic BUTCHERDOB: Community y Number: [id number] Regional Medical [id number] Repository Date:3970-52-25GC [address] [place] [address]RW: 12/30/2017 Tertiary NOT GIVENUNK Erica Insurance:SELF PAY [facility] Number: Effective Repository Date:2017-12-30 12/29/2017 CHRISTIANO C Primary CHRISTIANO C Ewing [id number] DE[place] Insurance:ANTHEMPolic BUTCHERDOB: [facility], y Number: [id number] of New Mexico Hospitals 42828Vqt: [id number] Repository Date:0791-10-68LE [address] () [address]TRTPHS, [place] [address]YU: 12/29/2017 Secondary CHRISTIANO C Erica Insurance:MEDICARE BUTCHERDOB: Community PART A [facility] [id number] Hospital Number: Repository [id number] Date:2017-09-05 12/29/2017 Tertiary NOT GIVENUNK Erica Insurance:SELF PAY [facility] Number: Effective Repository Date:2017-09-05 12/16/2017 CHRISTIANO C Primary CHRISTIANO C Ewing [id number] DEER Insurance:MEDICARE BUTCHERDOB: [facility], PART A [facility] [id number] of New Mexico Hospitals 52416Iyn: Number: Repository [id number] () Date:2017-12-16 12/16/2017 Secondary CHRISTIANO C Ewing Insurance:ANTHEMPolic BUTCHERDOB: Community y Number: [id number] Hospital [id number] Repository Date:2344-39-60WQ [address] [place] [address] 16959OF: 12/16/2017 Tertiary NOT GIVENUNK Ewing Insurance:SELF PAY [facility] Number: Effective Repository Date:2017-12-16 12/12/2017 CHRISTIANO C Primary CHRISTIANO C Ewing [id number] DE[place] Insurance:MEDICARE BUTCHERDOB: [facility], PART A [facility] [id number] of New Mexico Hospitals 25724Hrm: Number: Repository [id number] () Date:2017-12-11 12/12/2017 Secondary CHRISTIANO C Ewing Insurance:ANTHEMPolic BUTCHERDOB: Community y Number: [id number] Hospital [id number] Repository Date:7933-16-02NX [address], [place] [address]NB: 12/12/2017 Tertiary NOT GIVENUNK Ewing Insurance:SELF PAY [facility] Number: Effective Repository Date:2017-12-12 11/25/2017 CHRISTIANO C Primary CHRISTIANO C Ewing [id number] DEER Insurance:MEDICARE BUTCHERDOB: [facility], PART A [facility] [id number] of New Mexico Hospitals 57983Ldu: Number: Repository [id number] () Date:2017-11-25 11/25/2017 Secondary CHRISTIANO C Erica Insurance:ANTHEMPolic BUTCHERDOB: Community y Number: [id number] Hospital [id number] Repository Date:5516-00-01GG [address], [place] [address]ED: 11/25/2017 Tertiary NOT GIVENUNK Erica Insurance:SELF PAY [facility] Number: Effective Repository Date:2017-11-25 11/14/2017 CHRISTIANO C Primary CHRISTIANO C Ewing [id number] DEER Insurance:MEDICARE BUTCHERDOB: [facility], PART A [facility] [id number] of New Mexico Hospitals 00269Vqf: Number: Repository [id number] (HP) Date:2017-11-14 11/14/2017 Secondary CHRISTIANO C Erica Insurance:ANTHEMPolic BUTCHERDOB: Community y Number: [id number] Hospital [id number] Repository Date:9159-08-22XA [address]PB[address], [place] [address]OE: 11/14/2017 Tertiary NOT GIVENUNK Ewing Insurance:SELF PAY [facility] Number: Effective Repository Date:2017-11-14 11/11/2017 CHRISTIANO C Primary CHRISTIANO C Erica [id number] DEER Insurance:MEDICARE BUTCHERDOB: [facility], PART A [facility] [id number] of New Mexico Hospitals 20485Lwx: Number: Repository [id number] (HP) Date:2017-11-11 11/11/2017 Secondary CHRISTIANO C Erica Insurance:ANTHEMPolic BUTCHERDOB: Community y Number: [id number] Hospital [id number] Repository Date:9666-57-11NW [address]CHH, [place] [address]MW: 11/11/2017 Tertiary NOT GIVENUNK Erica Insurance:SELF PAY [facility] Number: Effective Repository Date:2017-11-11 11/07/2017 CHRISTIANO C Primary CHRISTIANO C Erica [id number] [place] Insurance:MEDICARE [facility]ERD[facility] [id number] of New Mexico Hospitals 67641Qxk: Number: Repository [id number] (HP) Date:2017-10-28 11/07/2017 Secondary CHRISTIANO C Ewing Insurance:ANTHEMPolic BUTCHERDOB: Community y Number: [id number] Hospital [id number] Repository Date:7776-11-30YV [address]WPKS[place] [address]TN: 11/07/2017 Tertiary NOT GIVENUNK Erica Insurance:SELF PAY [facility] Number: Effective Repository Date:2017-10-28 10/31/2017 CHRISTIANO C Primary CHRISTIANO C Erica [id number] DEER Insurance:MEDICARE BUTCHERDOB: [facility], PART A [facility] [id number] of New Mexico Hospitals 75257Owi: Number: Repository [id number] (HP) Date:2017-10-28 10/31/2017 Secondary CHRISTIANO C Ewing Insurance:ANTHEMPolic BUTCHERDOB: Community y Number: [id number] Hospital [id number] Repository Date:0723-52-37[address] [address]HY: 10/31/2017 Tertiary NOT GIVENUNK Erica Insurance:SELF PAY [facility] Number: Effective Repository Date:2017-10-28 10/28/2017 CHRISTIANO C Primary CHRISTIANO C Ewing [id number] DEER Insurance:MEDICARE BUTCHERDOB: [facility], PART A [facility] [id number] of New Mexico Hospitals 47045Scq: Number: Repository [id number] (HP) Date:1998-12-21 10/28/2017 Secondary CHRISTIANO C Ewing Insurance:ANTHEMPolic BUTCHERDOB: Community y Number: [id number] Hospital [id number] Repository Date:5372-44-86HL [address]UV, [place] [address]OE: 10/28/2017 Tertiary NOT GIVENUNK Erica Insurance:SELF PAY [facility] Number: Effective Repository Date:2017-08-20 10/28/2017 CHRISITANO C Primary CHRISTIANO C Erica [id number] [place] Insurance:MEDICARE BUTCHERDOB: [facility], PART A [facility] [id number] of New Mexico Hospitals 01768Uwb: Number: Repository [id number] (HP) Date:1998-12-21 10/28/2017 Secondary CHRISTIANO C Ewing Insurance:ANTHEMPolic BUTCHERDOB: Community y Number: [id number] Hospital [id number] Repository Date:9584-05-10FR [address] [place] [address] 32951UA: 10/28/2017 Tertiary NOT GIVENUNK Erica Insurance:SELF PAY [facility] Number: Effective Repository Date:2017-10-28 10/27/2017 CHRISTIANO C Primary CHRISTIANO C Erica [id number] DEER Insurance:MEDICARE BUTCHERDOB: [facility], PART A [facility] [id number] of New Mexico Hospitals 30500Hpj: Number: Repository [id number] (HP) Date:2017-10-27 10/27/2017 Secondary CHRISTIANO C Ewing Insurance:ANTHEMPolic BUTCHERDOB: Community y Number: [id number] Hospital [id number] Repository Date:4272-00-48SZ [address]MLCTWD, [place] [address]VC: 10/27/2017 Tertiary NOT GIVENUNK Ewing Insurance:SELF PAY [facility] Number: Effective Repository Date:2017-10-27 10/07/2017 CHRISTIANO C Primary CHRISTIANO C Erica [id number] DEER Insurance:MEDICARE BUTCHERDOB: [facility], PART A [facility] [id number] of New Mexico Hospitals 59649Sfk: Number: Repository [id number] (HP) Date:2017-08-28 10/07/2017 Secondary CHRISTIANO C Ewing Insurance:ANTHEMPolic BUTCHERDOB: Community y Number: [id number] Hospital [id number] Repository Date:3216-64-42RZ [address]AOBDZYM, [place] [address]NX: 10/07/2017 Tertiary NOT GIVENUNK Ewing Insurance:SELF PAY [facility] Number: Effective Repository Date:2017-08-28
== END ==
PROVIDERS: Family Provider Family Medicine; PCP Family Medicine; Visit Provider Internal Medicine Cardiovascular Disease
DX: I48.92 Unspecified atrial flutter (principal); I48.0 Paroxysmal atrial fibrillation; Z79.01 Long term (current) use of anticoagulants
CPT/HCPCS: 36415; 85610

== ENCOUNTER → 2018-10-15 09:31 | Outpatient (CLI) | payer MEDICARE, BC, SELFPAY ==
[2018-08-07 13:45] VITALS: BMI 28.1
[2018-10-15 10:51] LABS: Prothrombin Time Fingerstick 23.7 SEC (11.9-14.4)
== END ==
PROVIDERS: Family Provider Family Medicine; PCP Family Medicine; Visit Provider Internal Medicine Cardiovascular Disease
DX: I48.92 Unspecified atrial flutter (principal); I48.0 Paroxysmal atrial fibrillation; Z79.01 Long term (current) use of anticoagulants
CPT/HCPCS: 36416; 85610

== ENCOUNTER → 2018-10-22 08:52 | Outpatient (CLI) | payer MEDICARE, BC, SELFPAY ==
[2018-08-07 13:45] VITALS: BMI 28.1
[2018-10-22 12:26] LABS: International Normalized Ratio 1.3; Prothrombin Time (Protime)PT. 15.9 SECONDS (11.7-14.9)
== END ==
PROVIDERS: Family Provider Family Medicine; PCP Family Medicine; Visit Provider Internal Medicine Cardiovascular Disease
DX: I48.92 Unspecified atrial flutter (principal); I48.0 Paroxysmal atrial fibrillation; Z79.01 Long term (current) use of anticoagulants
CPT/HCPCS: 36415; 85610

== ENCOUNTER → 2018-11-02 12:21 | Outpatient (CLI) | payer MEDICARE, BC, SELFPAY ==
[2018-08-07 13:45] VITALS: BMI 28.1
[2018-11-02 13:07] LABS: Prothrombin Time Fingerstick 17.1 SEC (11.9-14.4)
== END ==
PROVIDERS: Family Provider Family Medicine; PCP Family Medicine; Visit Provider Internal Medicine Cardiovascular Disease
DX: I48.92 Unspecified atrial flutter (principal); I48.0 Paroxysmal atrial fibrillation; Z79.01 Long term (current) use of anticoagulants
CPT/HCPCS: 36416; 85610

== ENCOUNTER → 2018-11-10 08:31 | Outpatient (CLI) | payer MEDICARE, BC, SELFPAY ==
[2018-08-07 13:45] VITALS: BMI 28.1
[2018-11-10 12:21] LABS: Prothrombin Time Fingerstick 16.5 SEC (11.9-14.4)
== END ==
PROVIDERS: Family Provider Family Medicine; PCP Family Medicine; Visit Provider Internal Medicine Cardiovascular Disease
DX: I48.92 Unspecified atrial flutter (principal); I48.0 Paroxysmal atrial fibrillation; Z79.01 Long term (current) use of anticoagulants
CPT/HCPCS: 36416; 85610

== ENCOUNTER → 2018-11-17 10:16 | Outpatient (CLI) | payer MEDICARE, BC, SELFPAY ==
[2018-11-13 16:42] VITALS: BMI 28.1
[2018-11-17 11:30] LABS: International Normalized Ratio 1.7; Prothrombin Time (Protime)PT. 19.5 SECONDS (11.7-14.9)
[2018-11-17 11:50] LABS: ALB/GLOB Ratio 1.2 RATIO (0.9-2.4); AST(SGOT) 15 U/L (15-37); Alanine Aminotransfer ALT/SGPT 15 U/L (13-56); Albumin, Serum 3.6 g/dL (3.2-5.0); Alkaline Phosphatase 94 U/L (45-117); Anion Gap 12 (5-15); BUN 37 mg/dL (7-18); BUN/Creat Ratio 21.3 RATIO (10-20); Calcium,Total 8.7 mg/dL (8.5-10.1); Chloride 110 mmol/L (98-107); Cholesterol 153 mg/dL (200); Creatinine, Serum 1.74 mg/dL (0.55-1.02); EST Glomerular Filtration Rate 30 mL/min (>60); Est Glom Filt Rate - Afr Amer 36 mL/min (>60); Glucose 101 mg/dL (74-106); High Density Lipoprotein 61 mg/dL; Potassium 3.9 mmol/L (3.5-5.1); Protein, Total 6.6 g/dL (6.4-8.2); Sodium Level 145 mmol/L (136-145); Triglycerides 90 mg/dL; Very Low Density Lipoprotein 18 mg/dL (5-40)
[2018-11-17 11:53] LABS: Vitamin D,25 Hydroxy 28.8 ng/mL (29.95-100.01)
== END ==
PROVIDERS: Family Provider Family Medicine; PCP Family Medicine; Visit Provider Family Medicine
DX: E55.9 Vitamin D deficiency, unspecified (principal); I50.22 Chronic systolic (congestive) heart failure; I48.92 Unspecified atrial flutter; I48.0 Paroxysmal atrial fibrillation; Z79.01 Long term (current) use of anticoagulants
CPT/HCPCS: 36415; 80053; 80061; 82306; 83880; 85610

== ENCOUNTER → 2018-11-24 08:24 | Outpatient (CLI) | payer MEDICARE, BC, SELFPAY ==
[2018-11-13 16:42] VITALS: BMI 28.1
[2018-11-24 11:41] LABS: Prothrombin Time Fingerstick 17.3 SEC (11.9-14.4)
== END ==
PROVIDERS: Family Provider Family Medicine; PCP Family Medicine; Visit Provider Internal Medicine Cardiovascular Disease
DX: I48.0 Paroxysmal atrial fibrillation (principal); I48.92 Unspecified atrial flutter; Z79.01 Long term (current) use of anticoagulants
CPT/HCPCS: 36416; 85610

== ENCOUNTER → 2018-12-07 10:51 | Outpatient (CLI) | payer MEDICARE, BC, SELFPAY ==
[2018-11-13 16:42] VITALS: BMI 28.1
[2018-12-07 11:45] LABS: Prothrombin Time Fingerstick 25.8 SEC (11.9-14.4)
== END ==
PROVIDERS: Family Provider Family Medicine; PCP Family Medicine; Visit Provider Internal Medicine Cardiovascular Disease
DX: I48.92 Unspecified atrial flutter (principal); I48.0 Paroxysmal atrial fibrillation; Z79.01 Long term (current) use of anticoagulants
CPT/HCPCS: 36416; 85610

== ENCOUNTER → 2018-12-15 14:31 | Outpatient (CLI) | payer MEDICARE, BC, SELFPAY ==
[2018-11-13 16:42] VITALS: BMI 28.1
--- NOTE | 2018-12-15 14:35 | RAD_ITS ---
STUDY: X-RAY - RIGHT HUMERUS REASON FOR EXAM: Female, 78 years old. pt got right arm jammed between wheelchair and the wall, hx of right shoulder fx TECHNIQUE: 3 view(s) of the humerus. COMPARISON: January 10, 2016 FINDINGS: Once again note is made of old surgical neck fracture of the proximal humerus with displacement. The margins of the fracture are less sharp than that seen on the prior study. There is no evidence of osseous union and there may be pseudosubluxation at this level. On this exam I am suspicious of greater distraction at the old fracture site. Distally there appears an old supracondylar fracture. This appears unchanged. There is joint space loss of the elbow. RAD/Humerus min 2 Views IMPRESSION: Old fractures of the humerus including old surgical neck fracture and old supracondylar fracture. The proximal humeral neck fracture shows no evidence of osseous union and on this exam I question greater distraction, however pseudoarticulation may be present. Electronically Signed: Annalisa Martinez MD at 10:27 EDT , Service support ,
== END ==
PROVIDERS: Family Provider Family Medicine; PCP Family Medicine; Referring Provider Family Medicine; Visit Provider Family Medicine
DX: S40.029A Contusion of unspecified upper arm, initial encounter (principal)
CPT/HCPCS: 73060

== ENCOUNTER → 2018-12-30 10:22 | Outpatient (CLI) | payer MEDICARE, BC, SELFPAY ==
[2018-12-25 11:26] VITALS: BMI 26.1
[2018-12-30 11:06] LABS: Prothrombin Time Fingerstick 18.3 SEC (11.9-14.4)
== END ==
PROVIDERS: Family Provider Family Medicine; PCP Family Medicine; Visit Provider Internal Medicine Cardiovascular Disease
DX: I48.92 Unspecified atrial flutter (principal); I48.0 Paroxysmal atrial fibrillation; Z79.01 Long term (current) use of anticoagulants
CPT/HCPCS: 36416; 85610

== ENCOUNTER → 2019-01-18 12:29 | Outpatient (CLI) | payer MEDICARE, BC, SELFPAY ==
[2018-12-25 11:26] VITALS: BMI 26.1
[2019-01-20 07:01] LABS: Prothrombin Time Fingerstick 20.7 SEC (11.9-14.4)
== END ==
PROVIDERS: Family Provider Family Medicine; PCP Family Medicine; Visit Provider Internal Medicine Cardiovascular Disease
DX: I48.92 Unspecified atrial flutter (principal); I48.0 Paroxysmal atrial fibrillation; Z79.01 Long term (current) use of anticoagulants
CPT/HCPCS: 36416; 85610

== ENCOUNTER → 2019-02-04 09:51 | Outpatient (CLI) | payer MEDICARE, BC, SELFPAY ==
[2018-12-25 11:26] VITALS: BMI 26.1
[2019-02-04 11:15] LABS: Prothrombin Time Fingerstick 28.2 SEC (11.9-14.4)
== END ==
PROVIDERS: Family Provider Family Medicine; PCP Family Medicine; Visit Provider Internal Medicine Cardiovascular Disease
DX: I48.92 Unspecified atrial flutter (principal); I48.0 Paroxysmal atrial fibrillation; Z79.01 Long term (current) use of anticoagulants
CPT/HCPCS: 36416; 85610

== ENCOUNTER → 2019-03-05 08:55 | Outpatient (CLI) | payer MEDICARE, BC, SELFPAY ==
[2018-12-25 11:26] VITALS: BMI 26.1
[2019-03-05 12:31] LABS: Prothrombin Time Fingerstick 29.4 SEC (11.9-14.4)
[2019-03-23 07:00] LABS: Prothrombin Time Fingerstick 29.8 SEC (11.9-14.4)
== END ==
PROVIDERS: Family Provider Family Medicine; PCP Family Medicine; Visit Provider Internal Medicine Cardiovascular Disease
DX: I48.92 Unspecified atrial flutter (principal); I48.0 Paroxysmal atrial fibrillation; Z79.01 Long term (current) use of anticoagulants
CPT/HCPCS: 36416; 85610

== ENCOUNTER → 2019-03-22 11:04 | Outpatient (CLI) | payer MEDICARE, BC, SELFPAY ==
[2018-12-25 11:26] VITALS: BMI 26.1
== END ==
PROVIDERS: Family Provider Family Medicine; PCP Family Medicine; Visit Provider Internal Medicine Cardiovascular Disease
DX: I48.0 Paroxysmal atrial fibrillation (principal); I48.92 Unspecified atrial flutter; Z79.01 Long term (current) use of anticoagulants

== ENCOUNTER → 2019-04-09 16:34 | Outpatient (CLI) | payer MEDICARE, BC, SELFPAY ==
[2018-12-25 11:26] VITALS: BMI 26.1
--- NOTE | 2019-04-09 16:39 | RAD_ITS ---
HISTORY: fell 3 days ago hx of fx 4 years ago ADDITIONAL HISTORY: None provided. COMPARISON: 12/15/2018, 01/10/2016 TECHNIQUE: Right shoulder 2 views Number of images including paperwork: 2 FINDINGS: BONES: No acute fracture. Ununited right proximal humerus fracture appears grossly similar to most recent previous exam with probable pseudoarticulation here. JOINTS: No subluxation. SOFT TISSUES: No distinct foreign body. Right-sided pleuroparenchymal scarring appears similar. Cardiac device leads and cardiomegaly partially visualized. Sternal wires and valvular prosthesis. RAD/Shoulder min 2 Views IMPRESSION: No acute osseous abnormality. Chronic ununited right proximal humerus fracture. at 0047 Reported and signed by: Chani Huizar MD Electronically Signed: Chani Huizar MD at 0:47 EDT Tel , Service support ,
== END ==
PROVIDERS: Family Provider Family Medicine; PCP Family Medicine; Referring Provider Family Medicine; Visit Provider Family Medicine
DX: M21.922 Unspecified acquired deformity of left upper arm (principal)
CPT/HCPCS: 73030

== ENCOUNTER → 2019-04-21 09:59 | Outpatient (CLI) | payer MEDICARE, BC, SELFPAY ==
[2018-12-25 11:26] VITALS: BMI 26.1
[2019-04-21 13:27] LABS: Prothrombin Time (Protime)PT. 65.4 SECONDS (11.7-14.9)
[2019-04-21 13:44] LABS: International Normalized Ratio 7.5
== END ==
PROVIDERS: Family Provider Family Medicine; PCP Family Medicine; Visit Provider Internal Medicine Cardiovascular Disease
DX: I48.92 Unspecified atrial flutter (principal); I48.0 Paroxysmal atrial fibrillation; Z79.01 Long term (current) use of anticoagulants
CPT/HCPCS: 36415; 85610

== ENCOUNTER → 2019-04-23 05:12 | Outpatient (CLI) | payer MEDICARE, BC, SELFPAY ==
[2018-12-25 11:26] VITALS: BMI 26.1
[2019-04-23 12:40] LABS: Prothrombin Time (Protime)PT. 81.2 SECONDS (11.7-14.9)
[2019-04-23 12:49] LABS: International Normalized Ratio 9.9
== END ==
PROVIDERS: Family Provider Family Medicine; PCP Family Medicine; Visit Provider Internal Medicine Cardiovascular Disease
DX: I48.92 Unspecified atrial flutter (principal); I48.0 Paroxysmal atrial fibrillation; Z79.01 Long term (current) use of anticoagulants
CPT/HCPCS: 85610

== ENCOUNTER → 2019-04-26 09:37 | Outpatient (CLI) | payer MEDICARE, BC, SELFPAY ==
[2018-12-25 11:26] VITALS: BMI 26.1
[2019-04-26 11:41] LABS: Prothrombin Time Fingerstick 32.6 SEC (11.9-14.4)
== END ==
PROVIDERS: Family Provider Family Medicine; PCP Family Medicine; Visit Provider Internal Medicine Cardiovascular Disease
DX: I48.92 Unspecified atrial flutter (principal); I48.0 Paroxysmal atrial fibrillation; Z79.01 Long term (current) use of anticoagulants
CPT/HCPCS: 36416; 85610

== ENCOUNTER 2019-04-28 14:19 | Emergency (ER) | payer MEDICARE, BC, SELFPAY ==
[2018-12-25 11:26] VITALS: BMI 26.1
[2019-04-28] VITALS (10 sets, daily range): BP systolic 100–117; BP diastolic 48–82; PULSE 73–85; RESP 16–24; TEMP 36.6–37.6; O2SAT 97–100; BMI 23.3
--- NOTE | 2019-04-28 14:34 | CT_ITS ---
STUDY: CT BRAIN WITHOUT CONTRAST REASON FOR EXAM: Female, 78 years old. History of fall. RADIATION DOSAGE (If Supplied By Facility): CTDIvol = ( 44.99 ) mGy, DLP = ( 815.79 ) mGycm TECHNIQUE: Transaxial CT imaging of the brain was performed without administration of intravenous contrast material. Individualized dose optimization techniques were used for this CT. COMPARISON: Comparison is made with prior study dated July 25, 2018. FINDINGS: Normal soft tissue structures. Normal calvarium. There is mild cerebral atrophy with widening of the extra-axial spaces and ventricular dilatation. There are areas of decreased attenuation within the white matter tracts of the supratentorial brain, consistent with microvascular disease changes. 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 Normal brainstem. Normal cerebellum. There is no intracranial hemorrhage. There are no findings of an acute ischemic infarction. Atherosclerotic calcification of the vertebral arteries and cavernous portions of the internal carotid arteries bilaterally. Normal visualized paranasal sinuses. CT/Brain/Head without Contrast IMPRESSION: Chronic involutional changes of the brain. 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 This was not seen on prior study. Electronically Signed: Garth Anne, at 15:37 EDT , Service support ,
--- NOTE | 2019-04-28 14:34 | EKG12_ITS ---
Test Reason : DIZZINESS Blood Pressure : / mmHG Vent. Rate : 072 BPM Atrial Rate : 075 BPM P-R Int : 000 ms QRS Dur : 158 ms QT Int : 512 ms P-R-T Axes : 000 -58 011 degrees QTc Int : 560 ms Ventricular-paced rhythm with intrinsic complexes Abnormal ECG Confirmed by JAY MANN ([id number]), magazine editor ROWAN MCCONNELL ([id number]) on 05/03/2019 1:28:32 PM Referred By: [id number]
--- NOTE | 2019-04-28 14:35 | ED.DCSUM_ITS ---
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 They report being called to her house frequently for falls. Patient reportedly does live with her son, but he works out of town and works long shifts, not being home often. Patient states she was up walking to the bathroom. She members reaching for the doorway to help balance her and fell to the floor. She denies chest pain or palpitations. She did not pass out. She did strike the back of her head. She does not have vision changes, nausea, or vomiting. EMS helped her up but she felt dizzy when trying to go to the restroom so they brought her in for transport. EMS did raise concern about her living conditions and her being able to care for herself throughout the day when her son is not there. Apparently she does have home health that comes 2 days a week. Patient admits that she has not eaten as much as normal the last several days. Patient does admit to nursing staff that she is depressed and feels like a burden to her family. Past Medical History - Allergies and Home Meds Allergies/Adverse Reactions: Allergies levothyroxine sodium [From Synthroid] Allergy (Severe, Verified 04/28/19 15:51) Pt states it caused renal failure. thyroid, pork [From [place] Thyroid] Allergy (Severe, Verified 04/28/19 15:51) Unknown Pt states it caused renal failure latex Allergy (Intermediate, Verified 04/28/19 15:51) Rash Primary Care Physician: Landry Muse MD [Primary Care Provider] - Prior records reviewed: Yes Past Medical History: - - Reviewed Surgical History: cholecystectomy, hysterectomy, pacemaker implantation, tonsillectomy, - - ICD placement. Lives: With Family Smoking Status: Never smoker - Family History Maternal Family History: Family History (Last Reviewed 12/25/18 @ 11:33 by Regla Phillips) Father CAD (coronary artery disease) Myocardial infarction Mother CVA (cerebral vascular accident) CHF (congestive heart failure) Daughter Arthritis Atrial fibrillation Hyperlipidemia Family History: Reports: Heart Disease Paternal Family History: Family History (Last Reviewed 12/25/18 @ 11:33 by Regla Phillips) Father CAD (coronary artery disease) Myocardial infarction Mother CVA (cerebral vascular accident) CHF (congestive heart failure) Daughter Arthritis Atrial fibrillation Hyperlipidemia Family History: Reports: Heart Disease Review of Systems General: Denies: Chills, Fever Eyes: Denies: Visual changes - bilaterally ENT: Denies: Bilateral ear pain Cardiovascular: Denies: Chest pain, Palpitations Respiratory: Denies: Dyspnea, Cough Gastrointestinal: Denies: Abdominal pain, Nausea, Vomiting, Diarrhea Genitourinary: Denies: Dysuria Musculoskeletal: Denies: Neck pain, Back pain Skin: Denies: Abrasions, Wounds Neurological: Reports: Headache, Weakness - Mild generalized weakness Psych: Reports: Depression Hematologic: Reports: Easy bruising Allergy: Denies: Uticaria Physical Exam Vital Signs/Narrative: Vital Signs Temp Pulse Resp BP Pulse Ox 04/28/19 14:20 98.3 F 75 16 100/51 L 99 Inital Vital Signs reviewed: Yes General: Well nourished, Well developed Head: Normocephalic Eyes: Perrl, EOMI ENT: Moist mucous membranes Neck: - - No C-spine tenderness. Cardiovascular: Regular rate, Regular rhythm Respiratory: No distress, CTA bilaterally Abdomen: Soft, Nontender, Nondistended Extremities: Nontender, No edema Skin: Normal color Neurological: Alert, Oriented x3, - - No focal neurologic deficits Psychological: Depressed Diagnostic/Tx/Re-eval Impressions Brain CT 04/28/19 14:34 IMPRESSION: Chronic involutional changes of the brain. 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 This was not seen on prior study. Electronically Signed: Garth Anne, at 15:37 EDT , Service support , 04/28/19 14:34 Brain/Head without Contrast [CT] Stat 04/28/19 16:20 Stool Stool Occult Blood ([facility]LEY) - Final Laboratory Results 04/28/19 04/28/19 04/28/19 15:00 15:00 15:00 WBC 5.9 RBC 2.16 L Hgb 7.5 L Hct 23.4 L MCV 108.3 H MCH 34.7 H MCHC 32.1 RDW Std Deviation 55.9 H RDW Coeff of [place] 14.3 Plt Count 212 MPV 9.4 Immature Gran % (Auto) 0.700 Neut % (Auto) 80.2 H Lymph % (Auto) 7.7 L [place] % (Auto) 8.7 Eos % (Auto) 2.2 Baso % (Auto) 0.5 Absolute Neuts (auto) 4.7 Absolute Lymphs (auto) 0.45 L Nucleated RBC % 0 Differential Comment SCANNED PT Cancelled INR Cancelled Sodium 138 Potassium 3.5 Chloride 109 H Carbon Dioxide 23.0 Anion Gap 6 BUN 41 H Creatinine 1.85 H Estim Creat Clear Calc 21.99 Est GFR (MDRD) Af Amer 34 L Est GFR (MDRD) Non-Af 28 L BUN/Creatinine Ratio 22.2 H Glucose 118 H Calcium 8.2 L Urine Color Urine Clarity Urine pH Ur Specific [place] Urine Protein Urine Glucose (UA) Urine Ketones Urine Occult Blood Urine Nitrite Urine Bilirubin Urine Urobilinogen Ur Leukocyte Esterase Urine RBC Urine WBC Ur Squamous Epith Cells Urine Bacteria Urine Mucus 04/28/19 04/28/19 15:30 15:38 WBC RBC Hgb Hct MCV MCH MCHC RDW Std Deviation RDW Coeff of [place]ane Plt Count MPV Immature Gran % (Auto) Neut % (Auto) Lymph % (Auto) [place] % (Auto) Eos % (Auto) Baso % (Auto) Absolute Neuts (auto) Absolute Lymphs (auto) Nucleated RBC % Differential Comment PT 23.3 H INR 2.1 Sodium Potassium Chloride Carbon Dioxide Anion Gap BUN Creatinine Estim Creat Clear Calc Est GFR (MDRD) Af Amer Est GFR (MDRD) Non-Af BUN/Creatinine Ratio Glucose Calcium Urine Color Yellow Urine Clarity Sl. Cloudy Urine pH 6.0 Ur Specific [place] 1.010 Urine Protein 15 H Urine Glucose (UA) Normal Urine Ketones Negative Urine Occult Blood Negative Urine Nitrite Positive H Urine Bilirubin Negative Urine Urobilinogen Normal Ur Leukocyte Esterase 500 H Urine RBC 0 SEEN Urine WBC 10-25 SEEN Ur Squamous Epith Cells 0 SEEN Urine Bacteria RARE Urine Mucus 0 SEEN - EKG Initial EKG Interpretation: - - Paced at 72. EKG unchanged when compared to prior study of July 2018. - Medical Decision Making Patient was given IV fluids. Blood work is reviewed. She is acutely anemic at hemoglobin 7.5. She was admitted in July with similar presentation and received 1 unit of blood. Patient is adamantly refusing hospitalization at this time. We will transfuse her 1 unit of blood and plan to discharge her following this. Patient was also noted to have a UTI. She is given a dose of IV Rocephin and will be discharged with a prescription for Macrobid. She will also be given a prescription for iron supplements as son states that she has been out of these as well. ED Disposition - Plan for ED Patient: Disposition: Home or Assisted Living Diagnosis: Anemia, Cystitis Instructions: ANEMIA, Type Not Specified (Adult), Bladder Infection, Female (Adult) Prescriptions: Ferrous Sulfate [Iron] 325 mg PO DAILY #30 tablet Nitrofurantoin Macrocrystals [Macrobid] 100 mg PO Q12 #14 capsule Referrals: Landry Muse MD [Primary Care Provider] - 1 Week
[2019-04-28] MEDS: 0.9% Normal Saline 1,000 ML 150 ML IV (15:00)
[2019-04-28 15:21] LABS: Absolute Lymphocyte Count 0.45 X10^3/uL (0.83-4.51); Absolute Neutrophil Count 4.7 X10^3/uL (2.0-7.7); Basophil# 0.03 X10^3/uL; Basophil% 0.5 % (0-1); Eosinophil# 0.13 X10^3/uL; Eosinophils% 2.2 % (0-5); Hematocrit 23.4 % (37-47); Hemoglobin 7.5 g/dL (12.0-15.0); Lymphocyte # 0.45 X10^3/ul (4.0); Lymphocyte % 7.7 % (19-41); Mean Corp Hgb Conc 32.1 g/dL (32-36); Mean Corpuscular Hgb 34.7 pg (27.0-32.0); Mean Corpuscular Volume 108.3 fL (81-99); Mean Platelet Vol. 9.4 fl (6.2-12.0); Monocyte# 0.51 X10^3/uL; Monocyte% 8.7 % (0-10); NRBC Flagged by Analyzer 0 % (0-5); Neutrophil % 80.2 % (47-70); POSITIVE DIFFERENTIAL YES; Platelet Count 212 K/mm3 (150-450); RBC Distribution Width CV 14.3 % (11.6-14.6); RBC Distribution Width SD 55.9 fl (35.1-43.9); Red Blood Count 2.16 M/mm3 (4.2-5.4); White Blood Count 5.9 K/mm3 (4.4-11.0)
[2019-04-28 15:25] LABS: Differential Indicated SCAN CRITERIA MET
[2019-04-28 15:32] LABS: Anion Gap 6 (5-15); BUN 41 mg/dL (7-18); BUN/Creat Ratio 22.2 RATIO (10-20); Calcium,Total 8.2 mg/dL (8.5-10.1); Chloride 109 mmol/L (98-107); Creatinine, Serum 1.85 mg/dL (0.55-1.02); EST Glomerular Filtration Rate 28 mL/min (>60); Est Glom Filt Rate - Afr Amer 34 mL/min (>60); Estimated Creatinine Clearance 21.99 ml/min; Glucose 118 mg/dL (74-106); Potassium 3.5 mmol/L (3.5-5.1); Sodium Level 138 mmol/L (136-145)
[2019-04-28 15:42] LABS: Mucous, Urine 0 SEEN /hpf (<or=2+); Red Blood Cells-Urine 0 SEEN /hpf (0-5); Squamous Epithelial Cells - UA 0 SEEN /hpf (5-10)
--- NOTE | 2019-04-28 15:48 | CM.ED ---
Social Work Assessment Referral Date: 04/28/19 Informant: DR. VILLALOBOS Reason for Consult: D/C PLANNING Information obtained from: PATIENT Living Arrangements: PATIENT LIVES HOME WITH SON, LADONNA GELLER IN A 1 STORY HOME WITH RAMP. DME: POWER CHAIR, SHOWER CHAIR, O2, GRAB BARS Employment/Financial: RETIRED Supports: [facility], FAMILY Social/Family Stressors: PATIENT STATES HAS BEEN FEELING WEAKER. DISCUSSED CONVERSATION WITH EMS AND CONCERNS FOR PATIENT IN THE HOME SOON WORKS FROM NOON TO MIDNIGHT. PATIENT VERBALIZES UNDERSTANDING OF CONCERNS, BUT WISHES TO RETURN HOME BEFORE. PATIENT REFUSING RESIDENTIAL PLACEMENT. Mental Health History: PATIENT REPORTS HX OF DEPRESSION AND ANXIETY AND REPORTS IS TREATED WITH MEDICATION. Substance Abuse History: PATIENT DENIES ANY HX OF SUBSTANCE ABUSE. Interventions: SOCIAL SERVICE ASSESSMENT DISCUSSED SNF VS HOME HEALTH. PATIENT REFUSING RESIDENTIAL, BUT IN AGREEMENT TO ADDING THERAPY TO HOME HEALTH SERVICES. Assessment: CASE CONFERENCE WITH DR. VILLALOBOS, PATIENT'S NURSE, AND EMS. EMS REPORTS PATIENT WITH FREQUENT FALLS AND CALLS EMS FOR ASSISTANCE. EMS STATES HOUSE IS CLUTTERED AND SMELLS OF DOG URINE. PATIENT REQUIRING DAILY CARE AND SON WORKS FROM NOON TO MIDNIGHT. DISCUSSED THE ABOVE WITH PATIENT AND PATIENT REPORTS HAS ANOTHER SON WHO WOULD BE ABLE TO STAY WITH PATIENT IF NEEDED. SON, SAHRA ARRIVED TO ROOM AND CONFIRMED BROTHER WOULD BE ABLE TO ASSIST. DISCUSSED POSSIBLE RESIDENTIAL PLACEMENT FOR REHAB-PATIENT REFUSED. DR. VILLALOBOS STILL COMPLETING WORK UP. THIS WORKER TO CONTINUE TO FOLLOW. PLAN: TBD
[2019-04-28 15:52] LABS: Differential Comment SCANNED
[2019-04-28 15:59] LABS: International Normalized Ratio 2.1; Prothrombin Time (Protime)PT. 23.3 SECONDS (11.7-14.9)
[2019-04-28 16:20] LABS: Color, Urine Yellow (Yellow); Glucose, Dipstick Normal (Normal); Ketone-Dipstick Negative (Negative); Leukocyte Esterase-Dipstick 500 /ul (Negative); Nitrite-Dipstick Positive (Negative); Occult Blood-Urine Negative /ul (Negative); Protein-Dipstick 15 mg/dl (Negative); Urine Bilirubin Dipstick Negative (Negative); Urine Clarity Sl. Cloudy (Clear); Urine Urobilinogen Normal (Normal)
[2019-04-28 16:41] LABS: Bacteria RARE /hpf (None Seen); White Blood Cells 10-25 SEEN /hpf (0-5)
[2019-04-28] MEDS: Ceftriaxone 1 GM/50 ML BAG IV (17:23)
--- NOTE | 2019-04-28 17:45 | CM.ED ---
SOCIAL WORK MET WITH PATIENT AND SON IN ROOM TO DISCUSS D/C PLANNING. SON REPORTS PATIENT HAS [facility] FOR PT/INRS. PATIENT OPEN TO ADDING PHYSICAL THERAPY TO HOME HEALTH. SON STATES PATIENT HAD PHYSICAL THERAPY LAST YEAR AND IS IN AGREEMENT WITH RECOMMENDATION. UPDATED PHYSICIAN. THIS WORKER TO UPDATE HOME HEALTH. GRAHAM JORDAN, [place], SECRETARY.
--- NOTE | 2019-04-28 19:20 | CM.ED ---
SOCIAL WORK CALL TO [facility] COMMUNITY SERVICES MANAGER NURSE. UPDATED ON ORDER FOR PHYSICAL THERAPY. NURSE REPORTS HOME HEALTH WILL FOLLOW UP ON ORDER TOMORROW, 04/29/19. GRAHAM JORDAN MSW, RESEARCH QUALITY ASSURANCE SPECIALIST.
== END 2019-04-28 21:56 | disposition home or self-care (01) ==
PROVIDERS: Emergency Provider Emergency Medicine; Family Provider Family Medicine; PCP Family Medicine
DX: D64.9 Anemia, unspecified (principal); N30.90 Cystitis, unspecified without hematuria; Z90.49 Acquired absence of other specified parts of digestive tract; Z90.710 Acquired absence of both cervix and uterus; Z95.810 Presence of automatic (implantable) cardiac defibrillator; R42 Dizziness and giddiness; R53.1 Weakness; R23.3 Spontaneous ecchymoses
CPT/HCPCS: 36415; 36430; 70450; 80048; 81001; 82274; 85025; 85610; 86850; 86900; 86920; 86922; 87077; 87086; 87088; 87186; 93005; 96361; 96365; 99285; J7050; P9016; A4216

== ENCOUNTER → 2019-05-14 15:09 | Outpatient (CLI) | payer MEDICARE, BC, SELFPAY ==
[2019-04-28 14:20] VITALS: BMI 23.3
[2019-05-14 17:34] LABS: Absolute Lymphocyte Count 0.83 X10^3/uL (0.83-4.51); Absolute Neutrophil Count 6.7 X10^3/uL (2.0-7.7); Basophil# 0.05 X10^3/uL; Basophil% 0.6 % (0-1); Eosinophil# 0.12 X10^3/uL; Eosinophils% 1.4 % (0-5); Hematocrit 33.7 % (37-47); Hemoglobin 10.5 g/dL (12.0-15.0); Lymphocyte # 0.83 X10^3/ul (4.0); Lymphocyte % 9.8 % (19-41); Mean Corp Hgb Conc 31.2 g/dL (32-36); Mean Corpuscular Hgb 33.3 pg (27.0-32.0); Mean Platelet Vol. 9.9 fl (6.2-12.0); Monocyte# 0.72 X10^3/uL; Monocyte% 8.5 % (0-10); NRBC Flagged by Analyzer 0 % (0-5); Neutrophil # 6.73 X10^3/uL (2.7-7.7); Neutrophil % 79.2 % (47-70); Platelet Count 198 K/mm3 (150-450); RBC Distribution Width SD 63.6 fl (35.1-43.9); Red Blood Count 3.15 M/mm3 (4.2-5.4); White Blood Count 8.5 K/mm3 (4.4-11.0)
[2019-05-14 17:55] LABS: ALB/GLOB Ratio 0.8 RATIO (0.9-2.4); AST(SGOT) 14 U/L (15-37); Alanine Aminotransfer ALT/SGPT 14 U/L (13-56); Albumin, Serum 3.1 g/dL (3.2-5.0); Alkaline Phosphatase 103 U/L (45-117); Amylase 24 U/L (25-115); Anion Gap 10 (5-15); BUN 36 mg/dL (7-18); BUN/Creat Ratio 21.6 RATIO (10-20); Calcium,Total 8.7 mg/dL (8.5-10.1); Chloride 107 mmol/L (98-107); Creatinine, Serum 1.67 mg/dL (0.55-1.02); EST Glomerular Filtration Rate 32 mL/min (>60); Est Glom Filt Rate - Afr Amer 38 mL/min (>60); Globulin 3.9 g/dL (2.2-4.2); Glucose 126 mg/dL (74-106); Lipase 172 U/L (73-393); Potassium 3.6 mmol/L (3.5-5.1); Sodium Level 145 mmol/L (136-145); Thyroid Stim Hormone (TSH) 4.32 uIU/mL (0.358-3.74)
== END ==
PROVIDERS: Family Provider Family Medicine; PCP Family Medicine; Referring Provider Family Medicine; Visit Provider Family Medicine
DX: D64.9 Anemia, unspecified (principal); E03.9 Hypothyroidism, unspecified; R11.0 Nausea
CPT/HCPCS: 36415; 80053; 82150; 82248; 83690; 84443; 85025

== ENCOUNTER → 2019-07-09 16:33 | Outpatient (CLI) | payer MEDICARE, BC, SELFPAY ==
[2019-07-09 15:44] VITALS: BMI 23.0
[2019-07-09 17:06] LABS: Hematocrit 32.9 % (37-47); Hemoglobin 10.6 g/dL (12.0-15.0)
== END ==
PROVIDERS: Family Provider Family Medicine; PCP Family Medicine; Referring Provider Physician Assistant Medical; Visit Provider Physician Assistant Medical
DX: I50.22 Chronic systolic (congestive) heart failure (principal); D64.9 Anemia, unspecified
CPT/HCPCS: 36415; 85014; 85018

== ENCOUNTER 2019-10-22 13:14 | Inpatient (IN) | payer MEDICARE, BC, SELFPAY ==
[2019-10-08 16:20] VITALS: BMI 21.4
[2019-10-22] VITALS (11 sets, daily range): BP systolic 96–131; BP diastolic 30–79; PULSE 68–91; RESP 17–30; TEMP 36.4–37.1; O2SAT 95–100; BMI 22.6; BMI 22.1
--- NOTE | 2019-10-22 13:34 | EKG12_ITS ---
Test Reason : SOB Blood Pressure : / mmHG Vent. Rate : 096 BPM Atrial Rate : 096 BPM P-R Int : 000 ms QRS Dur : 166 ms QT Int : 452 ms P-R-T Axes : 000 188 008 degrees QTc Int : 571 ms Ventricular-paced rhythm with occasional atrial-paced complexes Abnormal ECG Confirmed by ESVIN PAUL, LEANDRO ([id number]), news copy editor MARILYN FITZPATRICK ([id number]) on 10/25/2019 3:29:44 PM Referred By: SARAN Confirmed By:LEANDRO MCALLISTER MD
--- NOTE | 2019-10-22 13:42 | ED.VIS.DYS ---
History of Present Illness Chief Complaint: Shortness of Breath Informant: EMS Onset: Days Timing: Continuous Quality: Dyspnea on exertion Narrative: Patient is a 79-year-old female with history of CHF on 2 L oxygen baseline, proximal atrial fibrillation, hypertension, hyperlipidemia, depression and V. tach?status post pacemaker/ICD placement presenting with worsening shortness of breath. Patient states she has had worsening shortness of breath for the last week. She states is been compliant with all of her medications. Her son has turned her up to 4 L of oxygen for the past 3 days. Today she was so symptomatic she could even walk to the bathroom which is why 911 was called. While patient was in route she did have an episode of chest pain. She states only lasted for a minute or 2 and then resolved. She currently denies any chest pain. She denies any swelling of her legs. She does have a chronic cough which is unchanged. Patient also reports diffuse myalgias but also states these are chronic and unchanged. No report of fever. No associated nausea, vomiting or abdominal discomfort. Normal bowel movements. Normal urination. Past Medical History - Allergies and Home Meds Allergies/Adverse Reactions: Allergies levothyroxine sodium [From Synthroid] Allergy (Severe, Verified 10/22/19 13:19) Pt states it caused renal failure. thyroid, pork [From [place] Thyroid] Allergy (Severe, Verified 10/22/19 15:13) Pt states it caused renal failure latex Allergy (Intermediate, Verified 10/22/19 13:19) Rash Past Medical History: - - CHF on 2 L oxygen baseline, proximal atrial fibrillation, hypertension, hyperlipidemia, depression and V. tach?status post pacemaker/ICD placement, Hx of right atrial clot, history of PE Surgical History: cholecystectomy, hysterectomy, pacemaker implantation, tonsillectomy, - - ICD placement. Smoking Status: Never smoker - Family History Maternal Family History: Family History (Last Reviewed 10/08/19 @ 16:46 by LOGAN Buitrago) Father CAD (coronary artery disease) Myocardial infarction Mother CVA (cerebral vascular accident) CHF (congestive heart failure) Daughter Arthritis Atrial fibrillation Hyperlipidemia Family History: Reports: Heart Disease Paternal Family History: Family History (Last Reviewed 10/08/19 @ 16:46 by LOGAN Buitrago) Father CAD (coronary artery disease) Myocardial infarction Mother CVA (cerebral vascular accident) CHF (congestive heart failure) Daughter Arthritis Atrial fibrillation Hyperlipidemia Family History: Reports: Heart Disease Review of Systems General: Reports: Malaise. Denies: Chills, Fever, Sweats Eyes: Denies: Visual changes - bilaterally, Diplopia ENT: Denies: Rhinorrhea, Sore throat Cardiovascular: Reports: Chest pain. Denies: Palpitations Respiratory: Reports: Dyspnea, Cough, Dyspnea on exertion Gastrointestinal: Denies: Abdominal pain, Nausea, Vomiting, Diarrhea, Melena, Hematochezia Genitourinary: Denies: Dysuria, Hematuria, Frequency Musculoskeletal: Denies: Back pain, Extremity Pain Skin: Denies: Rash, Wounds Neurological: Denies: Headache, Weakness, Numbness Physical Exam Vital Signs/Narrative: Vital Signs Temp Pulse Resp BP Pulse Ox 10/22/19 13:15 98.4 F 91 25 H 96/77 99 Inital Vital Signs reviewed: Yes General: Well nourished, Well developed, No Acute Distress Head: Normocephalic, Atraumatic Eyes: Perrl, EOMI ENT: Moist mucous membranes, No rhinorrhea. Negative for: Nasal congestion Neck: Supple, Nontender, - - JVD present Cardiovascular: Regular rate, Regular rhythm, No murmurs Respiratory: - - Bibasilar crackles present, tachypnea. Negative for: Wheezing Abdomen: Soft, Nontender, Nondistended, Normal bowel sounds Back: Nontender, Normal Inspection Extremities: Nontender, No edema. Negative for: Edema Skin: Normal color, No rash Neurological: Alert, Oriented x3, Cranial nerves II-XII grossly intact, Normal Strength, Normal Sensation Psychological: Normal affect, Normal Mood Diagnostic/Tx/Re-eval Chest X-Ray - ED: 2 View, Read by ED Physician, Read by Radiologist, Right Effusion, Left Effusion Clinical Impression(s) from Imaging Studies Chest X-Ray 10/22/19 14:00 IMPRESSION: CHF with pleural effusions more prominent on the right side with bibasilar atelectasis. Electronically Signed: Garth Anne, at 14:22 EST , Service support , Laboratory Data 10/22/19 10/22/19 10/22/19 13:45 13:45 13:45 WBC 8.0 RBC 2.69 L Hgb 9.1 L Hct 29.2 L MCV 108.6 H MCH 33.8 H MCHC 31.2 L RDW Std Deviation 53.5 H RDW Coeff of [place] 13.6 Plt Count 156 MPV 10.6 Immature Gran % (Auto) 0.400 Neut % (Auto) 74.1 H Lymph % (Auto) 11.3 L [place] % (Auto) 10.3 H Eos % (Auto) 3.4 Baso % (Auto) 0.5 Absolute Neuts (auto) 5.9 Absolute Lymphs (auto) 0.90 Nucleated RBC % 0 Sodium 141 Potassium 4.9 Chloride 102 Carbon Dioxide 35.0 H Anion Gap 4 L BUN 30 H Creatinine 1.60 H Estim Creat Clear Calc 25.02 Est GFR (MDRD) Af Amer 40 L Est GFR (MDRD) Non-Af 33 L BUN/Creatinine Ratio 18.8 Glucose 103 Calcium 9.1 Troponin I < 0.015 B-Natriuretic Peptide 2094.0 H - Rhythm Strip Rhythm Strip: paced Rate: 96 - EKG Initial EKG Interpretation: Paced, - - Ventricular paced rhythm at a rate of 96, Appropriate discordance present - Medical Decision Making Patient is evaluated for worsening shortness of breath and dyspnea on exertion. She appears tachypneic and has bibasilar crackles. Patient has been wearing 4 L inside of her 2 L of oxygen. Patient also has JVD on exam. Clinically she appears to be a CHF exacerbation. Patient's proBNP is elevated however it is chronically elevated. She does have some worsening pleural effusion on her chest x-ray. Troponin and other lab work is otherwise unremarkable.CBC is shows a normal white blood cell count. Her hemoglobin is low at 9.1 but this is at her baseline. Her platelets are normal at 156. Patient's creatinine is mildly elevated at 1.6 however again this is her baseline. Patient is given IV Lasix. She will be admitted for diuresing and further cardiac evaluation. Patient is agreeable this plan. She is stable for the general medical floor at time of disposition. ED Disposition - Plan for ED Patient: Disposition: Acute Care Hospital [facility] Diagnosis: Acute exacerbation of CHF (congestive heart failure), Dyspnea
[2019-10-22 13:56] LABS: Absolute Neutrophil Count 5.9 X10^3/uL (2.0-7.7); Basophil# 0.04 X10^3/uL; Basophil% 0.5 % (0-1); Eosinophil# 0.27 X10^3/uL; Eosinophils% 3.4 % (0-5); Hematocrit 29.2 % (37-47); Hemoglobin 9.1 g/dL (12.0-15.0); Lymphocyte % 11.3 % (19-41); Mean Corp Hgb Conc 31.2 g/dL (32-36); Mean Corpuscular Hgb 33.8 pg (27.0-32.0); Mean Corpuscular Volume 108.6 fL (81-99); Mean Platelet Vol. 10.6 fl (6.2-12.0); Monocyte# 0.82 X10^3/uL; Monocyte% 10.3 % (0-10); NRBC Flagged by Analyzer 0 % (0-5); Neutrophil % 74.1 % (47-70); Platelet Count 156 K/mm3 (150-450); RBC Distribution Width CV 13.6 % (11.6-14.6); RBC Distribution Width SD 53.5 fl (35.1-43.9); Red Blood Count 2.69 M/mm3 (4.2-5.4)
--- NOTE | 2019-10-22 14:00 | RAD_ITS ---
STUDY: X-RAY CHEST REASON FOR EXAM: Female, 79 years old. SOB AND WEAKNESS. NOT FEELING WELL FOR A COUPLE OF WEEKS NOW PER PATIENT. HX OF CHF TECHNIQUE: AP and lateral views of the chest. COMPARISON: Comparison is made with prior examination of July 25, 2013. FINDINGS: EKG electrodes are seen. There is evidence of vascular congestion and small bilateral pleural effusions slightly worse on the right side with bibasilar atelectasis more prominent on the right side. Sternal cerclage wires are present from a prior sternotomy. The patient has a prosthetic mitral valve. A left-sided dual-chamber pacemaker is seen. Moderate cardiomegaly. Normal mediastinum and mariano. Normal visualized pulmonary arteries. There is atherosclerotic tortuosity of the aortic arch and descending thoracic aorta. Normal visualized thoracic spine. Old fracture of the proximal right humerus. The patient is status post cholecystectomy. RAD/Chest PA and Lateral IMPRESSION: CHF with pleural effusions more prominent on the right side with bibasilar atelectasis. Electronically Signed: Garth Anne, at 14:22 EST , Service support ,
[2019-10-22 14:20] LABS: Anion Gap 4 (5-15); BUN 30 mg/dL (7-18); BUN/Creat Ratio 18.8 RATIO (10-20); Calcium,Total 9.1 mg/dL (8.5-10.1); Chloride 102 mmol/L (98-107); EST Glomerular Filtration Rate 33 mL/min (>60); Est Glom Filt Rate - Afr Amer 40 mL/min (>60); Estimated Creatinine Clearance 25.02 ml/min; Glucose 103 mg/dL (74-106); Potassium 4.9 mmol/L (3.5-5.1); Sodium Level 141 mmol/L (136-145)
--- NOTE | 2019-10-22 15:18 | NURSING ---
DR HERNANDEZ IN ROOM
[2019-10-22] MEDS: Furosemide 40 MG/4 ML Vial IV ×2 (15:39→21:29)
--- NOTE | 2019-10-22 15:53 | NURSING ---
PCU SEMENTI ACUTE SYSTOLIC CHF EXAC
--- NOTE | 2019-10-22 15:55 | PCM.HP.STD ---
Problem List (1) Acute exacerbation of CHF (congestive heart failure) Status: Chronic Qualifiers: Heart failure type: systolic Qualified Code(s): I50.23 - Acute on chronic systolic (congestive) heart failure (2) Biventricular automatic implantable cardioverter defibrillator in situ Status: Chronic (3) Frequent falls Status: Chronic (4) Pure hypercholesterolemia Status: Chronic (5) Essential hypertension Status: Chronic (6) Syncope and collapse Status: Inactive (7) Left atrial thrombus Status: Chronic (8) Atrial flutter Status: Chronic (9) Dilated cardiomyopathy Status: Chronic (10) Nonrheumatic mitral valve regurgitation Status: Chronic (11) Paroxysmal atrial fibrillation Status: Chronic (12) MGUS (monoclonal gammopathy of unknown significance) Status: Chronic (13) Pancytopenia Status: Chronic (14) Biventricular congestive heart failure Status: Chronic (15) CKD (chronic kidney disease), stage III Status: Chronic (16) Chronic systolic congestive heart failure Status: Chronic (17) Depression Status: Chronic (18) Esophageal reflux Status: Chronic (19) Heart valve replaced Status: Chronic Comment: Mitral & Tricuspid valves replaced 05/19/09 @ [facility] (20) Anemia in chronic kidney disease Status: Chronic (21) Chronic respiratory failure Status: Chronic (22) S/P mitral valve repair Status: Chronic Comment: 05/19/09, Mitral valve repair with placement of #26 Fletcher-Madison annuloplasty ring, placement of Linn stitch & tricuspid valve repair with placement of #28 tricuspid annuloplasty ring @ [facility] (23) S/P tricuspid valve repair Status: Chronic Comment: 05/19/09 @ [facility] (24) Status post ablation of atrial flutter Status: Chronic (25) Ventricular tachycardia Status: Chronic (26) Pulmonary embolus Status: Chronic Qualifiers: Chronicity: unspecified (27) 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 History of Present Illness Date of Admission: 10/22/19 Chief Complaint: Shortness of breath The patient is a 79 year old F with a past medical history of hypertension, hyperlipidemia, frequent falls, PAF, monoclonal gammopathy of unknown significance, pancytopenia, biventricular systolic congestive heart failure, chronic renal failure stage III, anemia of chronic disease, chronic hypoxic respiratory failure, ventricular tachycardia, mural thrombus of the cardiac apex, history of pulmonary embolism, cardiomyopathy, history of mitral valve repair, history of tricuspid valve repair, status post ablation for atrial flutter and ligation of the left atrial appendage who presented to the emergency department at [facility] on 10/22/2019 complaining of increasing shortness of breath. She denied chest pain. She has a dry cough. She denied peripheral edema. Vital signs at presentation to the emergency room were temp 98.4, pulse rate 91, blood pressure 96/77, respiratory rate 25 she was 99% saturated on a 4 L nasal cannula. CBC showed a white blood cell count of 8.0 with 74% neutrophils. Hemoglobin was 9.1 with macrocytic indices and the platelets were within normal limits. 9.1 is within her baseline. PT was mildly prolonged at 16.1. The serum bicarb was 35 and the BUN was 30 with a creatinine of 1.6 which is within her baseline. The BNP was 2094. TSH was 6.01 and troponin is less than 0.015?2. Chest x-ray reveals severe cardiomegaly with pleural effusions and increased pulmonary vascular congestion. She is being admitted to the hospital with a diagnosis of acute on chronic systolic congestive heart failure. The last echocardiogram was in 2018 and showed a 55% EF with severe left atrial enlargement and moderate right atrial enlargement. There was mild to moderate TR. There was evidence of stage I diastolic dysfunction. Past Medical History Past Medical History (Chronic Problems): Chronic Problems (Last Reviewed 10/08/19 @ 16:46 by LOGAN Buitrago) Acute exacerbation of CHF (congestive heart failure) (Chronic) Biventricular automatic implantable cardioverter defibrillator in situ (Chronic) Frequent falls (Chronic) Pure hypercholesterolemia (Chronic) Essential hypertension (Chronic) Left atrial thrombus (Chronic) Atrial flutter (Chronic) Dilated cardiomyopathy (Chronic) Nonrheumatic mitral valve regurgitation (Chronic) Paroxysmal atrial fibrillation (Chronic) MGUS (monoclonal gammopathy of unknown significance) (Chronic) Pancytopenia (Chronic) Biventricular congestive heart failure (Chronic) CKD (chronic kidney disease), stage III (Chronic) Chronic systolic congestive heart failure (Chronic) Depression (Chronic) Esophageal reflux (Chronic) Heart valve replaced (Chronic) Mitral & Tricuspid valves replaced 05/19/09 @ [facility] 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) Chronic respiratory failure (Chronic) S/P mitral valve repair (Chronic ~05/19/09) 05/19/09, Mitral valve repair with placement of #26 Fletcher-Madison annuloplasty ring, placement of Linn stitch & tricuspid valve repair with placement of #28 tricuspid annuloplasty ring @ [facility] S/P tricuspid valve repair (Chronic ~05/19/09) 05/19/09 @ [facility] Status post ablation of atrial flutter (Chronic) Ventricular tachycardia (Chronic) Pulmonary embolus (Chronic) Mural thrombus of cardiac apex (Chronic) Medical History: Medical History (Last Reviewed 10/22/19 @ 22:04 by Tenisha Salamanca DO) Frequent falls (Chronic) R29.6 Pure hypercholesterolemia (Chronic) E78.00 Essential hypertension (Chronic) I10 Paroxysmal atrial fibrillation (Chronic) I48.0 MGUS (monoclonal gammopathy of unknown significance) (Chronic) D47.2 Pancytopenia (Chronic) D61.818 Biventricular congestive heart failure (Chronic) I50.9 CKD (chronic kidney disease), stage III (Chronic) Chronic systolic congestive heart failure (Chronic) I50.22 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) N18.9, D63.1 Chronic respiratory failure (Chronic) J96.10 Ventricular tachycardia (Chronic) I47.2 Pulmonary embolus (Chronic) I26.99 Mural thrombus of cardiac apex (Chronic) [id number] Shortness of breath R06.02 History of cardioversion Z98.890 for atrial flutter 04/30, 12 Dizziness and giddiness R42 Fatigue R53.83 Syncope R55 history of temporary dialysis CHF (congestive heart failure) (Inactive) I50.9 HTN (hypertension) (Inactive) I10 Hyperlipidemia (Inactive) E78.5 Primary cardiomyopathy (Inactive) I42.8 Allergies levothyroxine sodium [From Synthroid] Allergy (Severe, Verified 10/22/19 13:19) Pt states it caused renal failure. thyroid, pork [From [place] Thyroid] Allergy (Severe, Verified 10/22/19 15:13) Pt states it caused renal failure latex Allergy (Intermediate, Verified 10/22/19 13:19) Rash Home Medications: Ambulatory Orders Medication Instructions Recorded Dicyclomine HCl [Bentyl] 10 mg PO DINNER 08/29/17 Lorazepam [Ativan] 1 mg PO QHS 07/26/18 cholecalciferol (vitamin D3) 50 2,000 unit PO DAILY 12/25/18 mcg (2,000 unit) capsule duloxetine 60 mg capsule,delayed 60 mg PO DAILY 12/25/18 release sertraline 100 mg tablet 150 mg PO QHS tab 12/25/18 furosemide 20 mg tablet 20 mg PO BID #180 tab 01/25/19 aspirin 81 mg tablet,delayed 81 mg PO DAILY 05/05/19 release carvedilol 6.25 mg tablet 6.25 mg PO BID #180 tab 06/21/19 Ferrous Sulfate [Iron] 325 mg PO DAILY 10/22/19 Isosorbide Mononitrate [Isosorbide 15 mg PO DAILY 10/22/19 Mononitrate ER] Lorazepam 0.5 mg PO DAILY@1200 10/22/19 Mirtazapine [Remeron] 45 mg PO QHS 10/22/19 Sacubitril/Valsartan 49-51 mg 1 ea PO BID 10/22/19 [Entresto 49 mg-51 mg Tablet] Vitamin B Complex [B Complex] 1 tab PO DAILY 10/22/19 Surgical History: Surgical History (Last Reviewed 10/22/19 @ 22:04 by Tenisha Salamanca DO) S/P mitral valve repair (Chronic) Onset Date: ~05/19/09 Z98.890 05/19/09, Mitral valve repair with placement of #26 Fletcher-Madison annuloplasty ring, placement of Linn stitch & tricuspid valve repair with placement of #28 tricuspid annuloplasty ring @ [facility] S/P tricuspid valve repair (Chronic) Onset Date: ~05/19/09 Z98.890 05/19/09 @ [facility] Status post ablation of atrial flutter (Chronic) Z98.890, Z86.79 H/O cardiac radiofrequency ablation Z98.890 04/2010 History of cardiac cath Z98.890 1996. (left) 02/2001. 06/2005. (right and left) 03/2009. Hx of cholecystectomy Z90.49 ligation of left atrial appendage Surgical History: cholecystectomy, hysterectomy, pacemaker implantation, tonsillectomy, - - ICD placement. 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 Lives: With Family Smoking Status: Never smoker Tobacco Use: Non-smoker Alcohol: None Drugs: None - *Family History Maternal Family History: Family History (Last Reviewed 10/22/19 @ 22:04 by Tenisha Salamanca DO) Father CAD (coronary artery disease) Myocardial infarction Mother CVA (cerebral vascular accident) CHF (congestive heart failure) Daughter Arthritis Atrial fibrillation Hyperlipidemia History Items: Heart Disease Paternal Family History: Family History (Last Reviewed 10/22/19 @ 22:04 by Tenisha Salamanca DO) Father CAD (coronary artery disease) Myocardial infarction Mother CVA (cerebral vascular accident) CHF (congestive heart failure) Daughter Arthritis Atrial fibrillation Hyperlipidemia History Items: Heart Disease Review of Systems Constitutional: Reports: Weakness. Denies: Chills, Fever, Weight Change HEENT: Denies: Head Aches, Sinus Congestion, Sinus Drainage, Sore Throat Cardiovascular: Reports: Orthopnea, Paroxysmal Noc. Dyspnea. Denies: Chest Pain, Edema, Light Headedness, Palpitations Respiratory: Reports: Cough, Shortness of Breath, Shortness of breath upon exertion. Denies: Shortness of breath at rest, Sputum production Gastrointestinal: Reports: Diarrhea - This is chronic. Denies: Abdominal Pain, Nausea, Vomiting Genitourinary: Denies: Dysuria Musculoskeletal: Denies: Joint Pain, Joint Tenderness Skin: Reports: Dryness. Denies: Jaundice, Rash, Wounds Neurological: Denies: Slurred speech, Confusion, Focal weakness, Numbness, Tingling, Seizures Psychiatric: Reports: Anxiety, Depression. Denies: Homicidal Ideations, Suicidal Ideations Hematologic/ Lymphatic: Reports: Hx of blood clot. Denies: Easy Bruising, Easy Bleeding VTE Information - Inpt Only VTE Present on Admission: No VTE Mechan Device Prophylaxis: None VTE Pharm Prophylaxis ordered?: Yes - Physical Exam Vitals/I&O's: Vital Signs Temp Pulse Resp BP Pulse Ox 98.4 F 70 30 H 119/55 L 98 10/22/19 13:15 10/22/19 15:00 10/22/19 15:00 10/22/19 15:00 10/22/19 15:00 Oxygen Flow Rate (L/min) 4 Oxygen Delivery Method Nasal Cannula Weight: 131 lb 13.383 oz Body Mass Index (BMI) 22.6 General: Alert, Oriented x3, Cooperative HEENT: Atraumatic, PERRLA, EOMI, Normocephalic Oral: Dry Mucosa Neck: Negative Carotid Bruits, No Nodes, No Nuchal Rigidity, Trachea Midline, JVD, Bilateral, - - Carotids have brisk upstroke and decent pulse volume Lungs: Rales - both bases Cardiovascular: Regular Rhythm - paced, Normal S1, Normal S2, Gallops, Murmur - systolic MM in the Left axillary listening post, No rub noted Abdomen: Bowel Sounds Present, Soft, Non Tender, Non-Distended, - - No guarding with palpation Extremities: No clubbing, No cyanosis, No edema, Peripheral Pulses Normal Skin: No rashes, No breakdown Musculoskeletal: Arthritic Changes Neurological: Cranial nerves II-XII grossly intact, Neuro grossly intact Psych/Mental Status: Normal Affect, Appropriate Microbiology Past 72 Hours 10/22/19 13:41 Mucosa - Nose Influenza Types A,B Direct FA (HADLEY) - Final Laboratory Results 10/22/19 13:45: WBC 8.0, RBC 2.69 L, Hgb 9.1 L, Hct 29.2 L, MCV 108.6 H, MCH 33.8 H, MCHC 31.2 L, RDW Std Deviation 53.5 H, RDW Coeff of [place] 13.6, Plt Count 156, MPV 10.6, Immature Gran % (Auto) 0.400, Neut % (Auto) 74.1 H, Lymph % (Auto) 11.3 L, [place] % (Auto) 10.3 H, Eos % (Auto) 3.4, Baso % (Auto) 0.5, Absolute Neuts (auto) 5.9, Absolute Lymphs (auto) 0.90, Nucleated RBC % 0 10/22/19 13:45: Sodium 141, Potassium 4.9, Chloride 102, Carbon Dioxide 35.0 H, Anion Gap 4 L, BUN 30 H, Creatinine 1.60 H, Estim Creat Clear Calc 25.02, Est GFR (MDRD) Af Amer 40 L, Est GFR (MDRD) Non-Af 33 L, BUN/Creatinine Ratio 18.8, Glucose 103, Calcium 9.1, Troponin I < 0.015 10/22/19 13:45: B-Natriuretic Peptide 2094.0 H Assessment/Plan Impressions 1. Acute on chronic systolic congestive heart failure 2. Metabolic alkalosis 3. Stage III chronic renal failure 4. Anemia of chronic renal failure 6. Paroxysmal atrial fibrillation 7. History of mitral valve repair 8. History of tricuspid valve repair 9. Monoclonal gammopathy of undetermined significance 10. Presence of an AICD 11. Essential hypertension 12. History of a left atrial thrombus and left ventricular mural thrombus 13. History of a dilated cardiomyopathy 14. Depression 15. Esophageal reflux 16. Chronic hypoxic respiratory failure 17. History of ventricular tachycardia 18. To pulmonary embolism Admit to a monitored bed on PCU Weigh at admission to the floor and then daily Acccurate I&O's Chest XRAY BNP Diurese with Lasix 40 mg IV every 8 hours ECHO to evaluate LV EF and wall motion Recheck lab in the AM Salt restriction Fluid restriction Dietary consult for education regarding low sodium diet Code Visit Inpatient E&M: 60891 Init Hosp L3
--- NOTE | 2019-10-22 16:52 | NURSING ---
MED SURG VINNY SEPTICEMIA, ARM ABSCESS
--- NOTE | 2019-10-22 17:37 | ECHOD_ITS ---
Reason For Study: CHF Procedure This was a 2D Doppler, Color Flow transthoracic echocardiogram. The study was technically difficult. Exam performed portable in patient room. Left Ventricle Normal LV size. Left ventricular systolic function is lower limits of normal. The estimated ejection fraction is 50 %. There is evidence of diastolic dysfunction. No regional wall motion abnormalities noted. Right Ventricle Moderately dilated right ventricle. ICD or pacer leads identified within the right ventricle. Mild to moderate global right ventricular systolic dysfunction. Atria The left atrium is severely enlarged. The right atrium is mildly enlarged. ICD or pacer leads identified within the right atrium. No doppler evidence for ASD. Mitral Valve Mild diffuse mitral valve thickening. Mitral valve doming/Hockey Sticking. An annuloplasty ring is noted in the mitral position. MIld (1+) transvalvular insufficiency of the mitral valve. Tricuspid Valve Right ventricular systolic pressure estimated to be 53 mmHg. An annuloplasty ring is noted in the tricuspid position. Moderate transvalvular insufficiency of the tricuspid valve. Aortic Valve Trisinus/trileaflet aortic valve. Moderate focal aortic valve calcification. Trivial aortic valve insufficiency. Pulmonic Valve The pulmonic valve is not well visualized. Trivial pulmonic valve insufficiency. Great Vessels Normal sized aortic root. Pericardium/Pleural No pericardial effusion. Echo lucency compatible with a pleural effusion. MMode/2D Measurements & Calculations LVIDd: 4.5 cm IVSd: 1.0 cm Ao root diam: 2.8 cm LVIDs: 3.4 cm LVPWd: 1.4 cm RVDd: 5.0 cm FS: 24.6 % LAV(MOD-bp): 138.7 ml LVAd ap4: 21.9 cm2 SV(MOD-sp4): 34.3 ml LAV(MOD-bp) Indexed: 84.9 ml/m2 EDV(MOD-sp4): 60.2 ml LAV(MOD-sp2): 161.9 ml EDV(sp4-el): 61.4 ml LAV(MOD-sp4): 116.8 ml LVAs ap4: 13.5 cm2 ESV(MOD-sp4): 25.9 ml ESV(sp4-el): 27.4 ml EF(MOD-sp4): 57.0 % EF(sp4-el): 55.3 % SV(sp4-el): 33.9 ml LA A4 area: 33.8 cm2 LA dimension(2D): 6.2 cm RA A4 area: 26.5 cm2 Doppler Measurements & Calculations MV E max dominik: 134.3 cm/sec Lat Peak E' Dominik: 3.5 cm/sec Med Peak E' Dominik: 2.9 cm/sec E/E' lat: 37.8 E/E' med: 46.2 MV V2 max: 153.0 cm/sec Ao V2 max: 126.2 cm/sec LV V1 max: 109.9 cm/sec MV max P.4 mmHg Ao max P.4 mmHg LV V1 max P.8 mmHg MV V2 mean: 96.1 cm/sec Ao V2 mean: 86.1 cm/sec MV mean P.1 mmHg Ao mean P.3 mmHg MV V2 VTI: 44.0 cm Ao V2 VTI: 23.3 cm PA V2 max: 107.1 cm/sec PI end-d dominik: 166.0 cm/sec TR max dominik: 306.6 cm/sec TR max P.6 mmHg Interpretation Summary The study was technically difficult. Left ventricular systolic function is lower limits of normal. The estimated ejection fraction is 50 %. Moderately dilated right ventricle. Mild to moderate global right ventricular systolic dysfunction. The left atrium is severely enlarged. The right atrium is mildly enlarged. An annuloplasty ring is noted in the mitral position. Mild diffuse mitral valve thickening. Mitral valve doming/Hockey Sticking MIld (1+) transvalvular insufficiency of the mitral valve. An annuloplasty ring is noted in the tricuspid position. Moderate transvalvular insufficiency of the tricuspid valve. Moderate focal aortic valve calcification. Trivial aortic valve insufficiency. Trivial pulmonic valve insufficiency. Echo lucency compatible with a pleural effusion. Right ventricular systolic pressure estimated to be 53 mmHg. There is evidence of diastolic dysfunction. Comment: 2D echocardiographic images demonstrate a right atrial echodensity appearing compatible with a right atrial thrombus. Ordering Physician: Tenisha Salamanca Referring Physician: Michael Muse Performed By: Aranza Damon, DORY, RVT
[2019-10-22 18:05] LABS: International Normalized Ratio 1.3; Prothrombin Time (Protime)PT. 16.1 SECONDS (11.7-14.9)
--- NOTE | 2019-10-22 18:12 | NURSING ---
Pt unable to stand for ortho's
[2019-10-22] MEDS: Dicyclomine 10 MG Capsule PO (18:16)
[2019-10-22 18:25] LABS: Magnesium 2.2 mg/dL (1.6-2.6); Thyroid Stim Hormone (TSH) 6.01 uIU/mL (0.358-3.74)
[2019-10-22] MEDS: SACUBITRIL/VALSARTAN 49-51 MG TABLET 1 EACH PO (21:29)
[2019-10-22] MEDS: Carvedilol 6.25 MG Tablet PO (21:29)
[2019-10-22] MEDS: Sertraline 100 MG Tablet 150 MG PO (21:29)
[2019-10-22] MEDS: 0.9% Saline Lock 10 ML Syringe IV (21:29)
[2019-10-22] MEDS: Mirtazapine 15 MG Tablet 45 MG PO (21:29)
[2019-10-22] MEDS: LORazepam 1 MG Tablet PO (21:41)
[2019-10-23] VITALS (8 sets, daily range): BP systolic 100–108; BP diastolic 36–55; PULSE 60–72; RESP 16–18; TEMP 36.6–36.9; O2SAT 95–99
[2019-10-23 03:37] LABS: Mucous, Urine 0 SEEN /hpf (<or=2+); Red Blood Cells-Urine 0 SEEN /hpf (0-5)
[2019-10-23 03:41] LABS: Color, Urine Yellow (Yellow); Glucose, Dipstick Normal (Normal); Ketone-Dipstick Negative (Negative); Leukocyte Esterase-Dipstick 500 /ul (Negative); Nitrite-Dipstick Negative (Negative); Occult Blood-Urine Negative /ul (Negative); Protein-Dipstick Negative (Negative); Urine Bilirubin Dipstick Negative (Negative); Urine Clarity Clear (Clear); Urine Urobilinogen Normal (Normal)
[2019-10-23 03:46] LABS: Squamous Epithelial Cells - UA 0-5 SEEN /hpf (5-10)
[2019-10-23 03:48] LABS: Hyaline Cast 0-5 SEEN /lpf (0-5)
[2019-10-23 03:49] LABS: Bacteria 3+ /hpf (None Seen); White Blood Cells 0-5 SEEN /hpf (0-5)
[2019-10-23 03:50] LABS: Transitional Epithelial - Ur 0-5 SEEN /hpf (0-5)
[2019-10-23] MEDS: 0.9% Saline Lock 10 ML Syringe IV ×2 (05:05→21:04)
[2019-10-23] MEDS: Furosemide 40 MG/4 ML Vial IV ×3 (05:05→21:03)
[2019-10-23 07:08] LABS: Hemoglobin 7.8 g/dL (12.0-15.0); Mean Corp Hgb Conc 31.2 g/dL (32-36); Mean Corpuscular Hgb 33.6 pg (27.0-32.0); Mean Corpuscular Volume 107.8 fL (81-99); Mean Platelet Vol. 10.4 fl (6.2-12.0); Platelet Count 101 K/mm3 (150-450); RBC Distribution Width CV 13.1 % (11.6-14.6); RBC Distribution Width SD 51.2 fl (35.1-43.9); Red Blood Count 2.32 M/mm3 (4.2-5.4); White Blood Count 4.4 K/mm3 (4.4-11.0)
[2019-10-23 07:19] LABS: ALB/GLOB Ratio 0.8 RATIO (0.9-2.4); AST(SGOT) 14 U/L (15-37); Alanine Aminotransfer ALT/SGPT 9 U/L (13-56); Albumin, Serum 2.5 g/dL (3.2-5.0); Alkaline Phosphatase 82 U/L (45-117); Anion Gap 4 (5-15); BUN 33 mg/dL (7-18); BUN/Creat Ratio 21.2 RATIO (10-20); Calcium,Total 8.7 mg/dL (8.5-10.1); Chloride 101 mmol/L (98-107); Cholesterol 133 mg/dL (200); Creatinine, Serum 1.56 mg/dL (0.55-1.02); EST Glomerular Filtration Rate 34 mL/min (>60); Est Glom Filt Rate - Afr Amer 41 mL/min (>60); Estimated Creatinine Clearance 25.66 ml/min; Globulin 3.2 g/dL (2.2-4.2); Glucose 77 mg/dL (74-106); High Density Lipoprotein 43 mg/dL; Magnesium 2.2 mg/dL (1.6-2.6); Phosphorus 3.4 mg/dL (2.5-4.9); Potassium 4.2 mmol/L (3.5-5.1); Protein, Total 5.7 g/dL (6.4-8.2); Sodium Level 142 mmol/L (136-145); Triglycerides 72 mg/dL; Very Low Density Lipoprotein 14 mg/dL (5-40)
[2019-10-23 09:29] LABS: Free T3 1.6 pg/mL (2.18-3.98); T4 Total, Thyroxin 4.7 ug/dL (4.8-13.9)
[2019-10-23] MEDS: Aspirin E.C. 81 MG Tablet PO (09:36)
[2019-10-23] MEDS: Vitamin B Comp W-C Capsule 1 CAP PO (09:36)
[2019-10-23] MEDS: Carvedilol 6.25 MG Tablet PO ×2 (09:37→21:03)
[2019-10-23] MEDS: Famotidine 20 MG Tablet PO (09:39)
[2019-10-23] MEDS: SACUBITRIL/VALSARTAN 49-51 MG TABLET 1 EACH PO ×2 (09:39→21:03)
[2019-10-23] MEDS: DULoxetine Hcl 60 MG Capsule PO (09:40)
[2019-10-23] MEDS: Isosorbide Mononitrate 30 MG Tablet 15 MG PO (09:41)
--- NOTE | 2019-10-23 12:51 | PCM.PROGNOTE ---
Subjective: Patient seen and examined. Reports improvement in breathing. On baseline home O2 requirements. - Physical Exam Vitals/I&O's: Vital Signs Temp Pulse Resp BP Pulse Ox 97.8 F 60 18 108/54 L 97 10/23/19 09:30 10/23/19 10:47 10/23/19 09:30 10/23/19 09:30 10/23/19 09:30 Oxygen Flow Rate (L/min) 3 Oxygen Delivery Method Nasal Cannula Weight: 124 lb 5.451 oz Body Mass Index (BMI) 22.1 Orthostatic Vital Signs Start: 10/22/19 18:06 Freq: q24h Status: Active Protocol: Activity Type Activity Date Activity User E-Sign Co-Sign Detail Recorded Client Recorded Date Recorded By Document 10/23/19 03:30 OLIVIER [id number] 10/23/19 03:37 OLIVIER 10/23/19 03:30 Orthostatic Vitals Sitting -Blood Pressure (90/60-120/80) 100/36 L -Extremity Use Left Arm -Pulse Rate (60-100) 69 Lying -Blood Pressure (90/60-120/80) 101/45 L -Extremity Use Left Arm -Pulse Rate (60-100) 67 Intake and Output for Last 24 Hours 10/21/19 10/22/19 10/23/19 23:59 23:59 23:59 Intake Total 180 / 180 240 / 240 Output Total 350 / 350 100 / 100 Balance -170 / -170 140 / 140 General: Alert, Oriented x3, Cooperative HEENT: Atraumatic, PERRLA, EOMI, Normocephalic Neck: Supple, No JVD, Negative Carotid Bruits Lungs: Clear to auscultation, Diminished Cardiovascular: Regular rate, Regular Rhythm, Normal S1, Normal S2, Murmur Abdomen: Bowel Sounds Present, Soft, Non Tender, Non-Distended Extremities: No clubbing, No cyanosis, No edema, Capillary Refill Less than 3 Seconds Skin: No rashes, No breakdown Musculoskeletal: No Tenderness to Palpation of Joints or Extremities Neurological: Cranial nerves II-XII grossly intact, Neuro grossly intact Psych/Mental Status: Normal Affect, Appropriate Microbiology Past 72 Hours 10/22/19 13:41 Mucosa - Nose Influenza Types A,B Direct FA (HADLEY) - Final Laboratory Results 10/22/19 13:45: WBC 8.0, RBC 2.69 L, Hgb 9.1 L, Hct 29.2 L, MCV 108.6 H, MCH 33.8 H, MCHC 31.2 L, RDW Std Deviation 53.5 H, RDW Coeff of [place] 13.6, Plt Count 156, MPV 10.6, Immature Gran % (Auto) 0.400, Neut % (Auto) 74.1 H, Lymph % (Auto) 11.3 L, [place] % (Auto) 10.3 H, Eos % (Auto) 3.4, Baso % (Auto) 0.5, Absolute Neuts (auto) 5.9, Absolute Lymphs (auto) 0.90, Nucleated RBC % 0 10/22/19 13:45: Sodium 141, Potassium 4.9, Chloride 102, Carbon Dioxide 35.0 H, Anion Gap 4 L, BUN 30 H, Creatinine 1.60 H, Estim Creat Clear Calc 25.02, Est GFR (MDRD) Af Amer 40 L, Est GFR (MDRD) Non-Af 33 L, BUN/Creatinine Ratio 18.8, Glucose 103, Calcium 9.1, Troponin I < 0.015 10/22/19 13:45: B-Natriuretic Peptide 2094.0 H 10/22/19 13:45: PT 16.1 H, INR 1.3 10/22/19 13:45: Magnesium 2.2, TSH 6.01 H 10/22/19 19:10: Troponin I < 0.015 10/22/19 21:37: Troponin I < 0.015 10/23/19 03:30: Urine Color Yellow, Urine Clarity Clear, Urine pH 6.0, Ur Specific [place] 1.010, Urine Protein Negative, Urine Glucose (UA) Normal, Urine Ketones Negative, Urine Occult Blood Negative, Urine Nitrite Negative, Urine Bilirubin Negative, Urine Urobilinogen Normal, Ur Leukocyte Esterase 500 H, Urine RBC 0 SEEN, Urine WBC 0-5 SEEN, Ur Squamous Epith Cells 0-5 SEEN, Ur Transition Epith Cell 0-5 SEEN, Urine Bacteria 3+, Hyaline Casts 0-5 SEEN, Urine Mucus 0 SEEN 10/23/19 06:28: WBC 4.4, RBC 2.32 L, Hgb 7.8 L, Hct 25.0 L, MCV 107.8 H, MCH 33.6 H, MCHC 31.2 L, RDW Std Deviation 51.2 H, RDW Coeff of [place] 13.1, Plt Count 101 L, MPV 10.4 10/23/19 06:28: Sodium 142, Potassium 4.2, Chloride 101, Carbon Dioxide 37.0 H, Anion Gap 4 L, BUN 33 H, Creatinine 1.56 H, Estim Creat Clear Calc 25.66, Est GFR (MDRD) Af Amer 41 L, Est GFR (MDRD) Non-Af 34 L, BUN/Creatinine Ratio 21.2 H, Glucose 77, Calcium 8.7, Phosphorus 3.4, Magnesium 2.2, Total Bilirubin 0.60, AST 14 L, ALT 9 L, Alkaline Phosphatase 82, Total Protein 5.7 L, Albumin 2.5 L, Globulin 3.2, Albumin/Globulin Ratio 0.8 L, Triglycerides 72, Cholesterol 133, LDL Cholesterol 76, VLDL Cholesterol 14, HDL Cholesterol 43 10/23/19 06:28: Thyroxine (T4) 4.7 L, Free T3 pg/dL 1.6 L Current Medications Acetaminophen (Tylenol) 650 mg PO Q6H PRN PRN PRN Reason: Pain Score 1-3/Temp > 100.7 F Al Hydroxide/Mg Hydroxide (Mylanta Ii) 30 ml PO Q6H PRN PRN PRN Reason: Gastric Burning Albuterol Sulfate (Ventolin Aerosols) 2.5 mg INHALATION Q2H PRN PRN PRN Reason: SOB/Wheezing Aspirin (Ecotrin) 81 mg PO DAILY@0800 [facility] Last Admin: 10/23/19 09:36 Dose: 81 mg Documented by: Carvedilol (Coreg) 6.25 mg PO BID [facility] Last Admin: 10/23/19 09:37 Dose: 6.25 mg Documented by: Cholecalciferol (Vitamin D) 2,000 unit PO DAILY [facility] Last Admin: 10/23/19 09:39 Dose: 2,000 unit Documented by: Dicyclomine HCl (Bentyl) 10 mg PO DINNER [facility] Last Admin: 10/22/19 18:16 Dose: 10 mg Documented by: Duloxetine HCl (Cymbalta) 60 mg PO DAILY [facility] Last Admin: 10/23/19 09:40 Dose: 60 mg Documented by: Famotidine (Pepcid) 20 mg PO DAILY [facility] Last Admin: 10/23/19 09:39 Dose: 20 mg Documented by: Ferrous Sulfate (Ferrous Sulfate) 325 mg PO DAILY@1200 [facility] Furosemide (Lasix) 40 mg IV Q8 [facility] Last Admin: 10/23/19 05:05 Dose: 40 mg Documented by: Guaifenesin (Robitussin) 20 ml PO Q4H PRN PRN PRN Reason: COUGH Isosorbide Mononitrate (Imdur) 15 mg PO DAILY [facility] Last Admin: 10/23/19 09:41 Dose: 15 mg Documented by: Lorazepam (Ativan) 1 mg PO QHS [facility] Last Admin: 10/22/19 21:41 Dose: 1 mg Documented by: Lorazepam (Ativan) 0.5 mg PO DAILY@1200 [facility] Mirtazapine (Remeron) 45 mg PO QHS [facility] Last Admin: 10/22/19 21:29 Dose: 45 mg Documented by: Morphine Sulfate () 1 mg IV Q3H PRN PRN PRN Reason: Pain Score 6-10/10 Multi-Ingredient Cream (Eucerin) 1 applic TOPICAL DAILY [facility]; Protocol Last Admin: 10/23/19 09:43 Dose: 1 applicatio Documented by: Multivitamins (Allbee W/C Caplet, Thera B Comp/C) 1 capsule PO DAILY [facility] Last Admin: 10/23/19 09:36 Dose: 1 capsule Documented by: Nitroglycerin (Nitrostat) 0.4 mg SUBLINGUAL Q5M PRN PRN Reason: CARDIAC/CHEST PAIN Prochlorperazine Edisylate (Compazine Iv) 5 mg IV Q4H PRN PRN PRN Reason: Breakthrough Nausea/Vomiting Sacubitril/Valsartan (Entresto 49 Mg-51 Mg Tablet) 1 each PO BID [facility] Last Admin: 10/23/19 09:39 Dose: 1 each Documented by: Senna/Docusate Sodium (Senokot-S, Rody-Colace) 2 tablet PO BID PRN PRN PRN Reason: Constipation Sertraline HCl (Zoloft) 150 mg PO QHS [facility] Last Admin: 10/22/19 21:29 Dose: 150 mg Documented by: Sodium Chloride () 10 - 40 ml IV UD PRN PRN Reason: SALINE FLUSH Last Admin: 10/23/19 05:05 Dose: 10 ml Documented by: Medical Necessity - Tobacco Use Smoking Status: Never smoker Tobacco Use: Non-smoker Assessment/Plan 1. Acute on chronic diastolic CHF with chronic hypoxic respiratory failure-BNP greater than 2000 on admission. Chest x-ray at admission consistent with CHF. Echocardiogram July 2018 demonstrated an EF of 55%. Patient has history of nonischemic cardiomyopathy with prior EF in 2016 20%. Troponin negative. Strict I&O. Daily weight. Continue IV Lasix with plans to transition to oral tomorrow. Repeat echo pending. 2. Chronic kidney disease stage III-stable, trend BMP. 3. Anemia of chronic disease-slightly below baseline, trend CBC. 4. Paroxysmal atrial fibrillation-continue carvedilol, aspirin. Not on anticoagulation. 5. Hypertension-stable, continue carvedilol, isosorbide, Entresto. 6. Status post AICD 7. Monoclonal gammopathy-unknown etiology. 8. 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 9. 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 Depression-continue sertraline regimen. 11. GERD-not on regimen. DVT prophylaxis-heparin subcu This patient was seen by DUC Montero under the supervision of Dr. Monroe.
[2019-10-23] MEDS: LORazepam 0.5 MG Tablet PO (12:56)
[2019-10-23] MEDS: Ferrous Sulfate 325 MG Tablet PO (12:56)
[2019-10-23] MEDS: Dicyclomine 10 MG Capsule PO (16:32)
[2019-10-23 16:41] LABS: International Normalized Ratio 1.4; Prothrombin Time (Protime)PT. 17.2 SECONDS (11.7-14.9)
[2019-10-23 16:42] LABS: Partial Thromboplast Time 39.1 Seconds (24.1-36.2)
--- NOTE | 2019-10-23 17:01 | PCM.CONS.C ---
Problem List (1) Acute exacerbation of CHF (congestive heart failure) Status: Chronic Qualifiers: Heart failure type: systolic Qualified Code(s): I50.23 - Acute on chronic systolic (congestive) heart failure (2) Dilated cardiomyopathy Status: Chronic (3) S/P mitral valve repair Status: Chronic Comment: 05/19/09, Mitral valve repair with placement of #26 Fletcher-Madison annuloplasty ring, placement of Linn stitch & tricuspid valve repair with placement of #28 tricuspid annuloplasty ring @ [facility] (4) S/P tricuspid valve repair Status: Chronic Comment: 05/19/09 @ [facility] (5) Status post ablation of atrial flutter Status: Chronic (6) Biventricular automatic implantable cardioverter defibrillator in situ Status: Chronic (7) Pure hypercholesterolemia Status: Chronic (8) Essential hypertension Status: Chronic (9) Pancytopenia Status: Chronic (10) Right atrial thrombus Status: Acute Reason for Consult Date of Consultation: 10/23/19 History of Present Illness: The patient is a 79 year old white female with a complex cardiovascular history which has included concerns of underlying CHF, non-CAD related cardiomyopathy, status post mitral valve repair, status post tricuspid valve repair, atrial dysrhythmia/flutter status post EPS/RFA, ICD-biventricular NECKTIE [employer] POCKETS [employer] PIECES, hyperlipidemia, history of hypertension, and previous history of intracardiac thrombus/left ventricular mural thrombus, who is now referred for evaluation of acute on chronic systolic mediated CHF and echocardiographic findings of a right atrial thrombus. The patient states that recently she has had progressive shortness of breath and dyspnea and has required higher levels of O2 therapy at home. Based upon her progressive shortness of breath and dyspnea and increased O2 levels she was brought by EMS to the hospital. She was thought to have acute on chronic systolic mediated CHF. She was placed in the hospital for further evaluation and care including IV diuresis. She states since initiation of IV diuresis she has felt better. During her hospitalization she has had negative troponin I levels. She does have a history of pancytopenia. She has been in an underlying electronic ventricular paced rhythm. Her chest x-ray suggested increased pulmonary vascularity and bilateral pleural effusions. A transthoracic echocardiogram was performed. The results are as noted below. Of note there was concern of a right atrial thrombus. The patient denied any symptoms of ongoing palpitations or rapid heart rates. There is been no near syncope or syncope. There is been no ICD discharge. She states with her shortness of breath and dyspnea she did have chest discomfort. She lives at home alone. Her son checks on her. She states she does not ambulate much. She goes between her bed, her power chair, and the bathroom. She does use a walker at times. She states she did accidentally fall out of her power chair when she was trying to reach to worm picker something. She summoned the EMS to help her back up into her chair. She states that resulted in bruising. She denies any obvious hemorrhagic issues. She has been pancytopenic and she has in the past required PRBC transfusions. [] Past Medical History Allergies/Adverse Reactions: Allergies levothyroxine sodium [From Synthroid] Allergy (Severe, Verified 10/22/19 13:19) Pt states it caused renal failure. latex Allergy (Intermediate, Verified 10/22/19 13:19) Rash thyroid, pork [From [place] Thyroid] Allergy (Unknown, Verified 10/23/19 15:57) Pt states it caused renal failure Home Medications: Ambulatory Orders Medication Instructions Recorded Dicyclomine HCl [Bentyl] 10 mg PO DINNER 08/29/17 Lorazepam [Ativan] 1 mg PO QHS 07/26/18 cholecalciferol (vitamin D3) 50 2,000 unit PO DAILY 12/25/18 mcg (2,000 unit) capsule duloxetine 60 mg capsule,delayed 60 mg PO DAILY 12/25/18 release sertraline 100 mg tablet 150 mg PO QHS tab 12/25/18 furosemide 20 mg tablet 20 mg PO BID #180 tab 01/25/19 aspirin 81 mg tablet,delayed 81 mg PO DAILY 05/05/19 release carvedilol 6.25 mg tablet 6.25 mg PO BID #180 tab 06/21/19 Ferrous Sulfate [Iron] 325 mg PO DAILY 10/22/19 Isosorbide Mononitrate [Isosorbide 15 mg PO DAILY 10/22/19 Mononitrate ER] Lorazepam 0.5 mg PO DAILY@1200 10/22/19 Mirtazapine [Remeron] 45 mg PO QHS 10/22/19 Sacubitril/Valsartan 49-51 mg 1 ea PO BID 10/22/19 [Entresto 49 mg-51 mg Tablet] Vitamin B Complex [B Complex] 1 tab PO DAILY 10/22/19 Past Medical History (Chronic Problems): Chronic Problems (Last Reviewed 10/22/19 @ 22:04 by Tenisha Salamanca DO) Acute exacerbation of CHF (congestive heart failure) (Chronic) Biventricular automatic implantable cardioverter defibrillator in situ (Chronic) Frequent falls (Chronic) Pure hypercholesterolemia (Chronic) Essential hypertension (Chronic) Left atrial thrombus (Chronic) Atrial flutter (Chronic) Dilated cardiomyopathy (Chronic) Nonrheumatic mitral valve regurgitation (Chronic) Paroxysmal atrial fibrillation (Chronic) MGUS (monoclonal gammopathy of unknown significance) (Chronic) Pancytopenia (Chronic) Biventricular congestive heart failure (Chronic) CKD (chronic kidney disease), stage III (Chronic) Chronic systolic congestive heart failure (Chronic) Depression (Chronic) Esophageal reflux (Chronic) Heart valve replaced (Chronic) Mitral & Tricuspid valves replaced 05/19/09 @ [facility] 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) Chronic respiratory failure (Chronic) S/P mitral valve repair (Chronic ~05/19/09) 05/19/09, Mitral valve repair with placement of #26 Fletcher-Madison annuloplasty ring, placement of Linn stitch & tricuspid valve repair with placement of #28 tricuspid annuloplasty ring @ [facility] S/P tricuspid valve repair (Chronic ~05/19/09) 05/19/09 @ [facility] Status post ablation of atrial flutter (Chronic) Ventricular tachycardia (Chronic) Pulmonary embolus (Chronic) Mural thrombus of cardiac apex (Chronic) Surgical History: cholecystectomy, hysterectomy, pacemaker implantation, tonsillectomy, - - ICD placement. Psychiatric History: Anxiety DISPOSITION CLERK History: No pertinent DISPOSITION CLERK history - *Family History Maternal Family History: Family History (Last Reviewed 10/22/19 @ 22:04 by Tenisha Salamanca DO) Father CAD (coronary artery disease) Myocardial infarction Mother CVA (cerebral vascular accident) CHF (congestive heart failure) Daughter Arthritis Atrial fibrillation Hyperlipidemia History Items: Heart Disease Paternal Family History: Family History (Last Reviewed 10/22/19 @ 22:04 by Tenisha Salamanca DO) Father CAD (coronary artery disease) Myocardial infarction Mother CVA (cerebral vascular accident) CHF (congestive heart failure) Daughter Arthritis Atrial fibrillation Hyperlipidemia History Items: Heart Disease Lives: With Family Smoking Status: Never smoker Tobacco Use: Non-smoker Alcohol: None Drugs: None Review of Systems - Review of Systems General: Reports: Weakness. Denies: Fever, Fatigue, Night Sweats Cardiovascular: Reports: Chest Discomfort, Shortness of Breath, Shortness of Breath at Rest, Shortness of Breath with Exertion, Orthopnea. Denies: PND, Peripheral Edema, Palpitations, Lightheadedness, Dizziness, Near Syncope, Syncope Respiratory: Reports: Shortness of Breath. Denies: Cough, Sputum Production, Hemoptysis Gastrointestinal: Denies: Hematemesis, Hematochezia, Melena Genitourinary: Denies: Dysuria, Hematuria Skin: Denies: Rash Subjectve: This is a frail 79-year-old white female who appears to be resting comfortably at the moment in no acute distress. Objective: Vital Signs Temp Pulse Resp BP Pulse Ox 98.1 F 72 16 102/55 L 97 10/23/19 15:30 10/23/19 15:43 10/23/19 15:30 10/23/19 15:30 10/23/19 15:30 Oxygen Flow Rate (L/min) 3 Oxygen Delivery Method Nasal Cannula Weight: 124 lb 5.451 oz Body Mass Index (BMI) 22.1 Orthostatic Vital Signs Start: 10/22/19 18:06 Freq: q24h Status: Active Protocol: Activity Type Activity Date Activity User E-Sign Co-Sign Detail Recorded Client Recorded Date Recorded By Document 10/23/19 03:30 [facility] [id number] 10/23/19 03:37 D[facility] 10/23/19 03:30 Orthostatic Vitals Sitting -Blood Pressure (90/60-120/80) 100/36 L -Extremity Use Left Arm -Pulse Rate (60-100) 69 Lying -Blood Pressure (90/60-120/80) 101/45 L -Extremity Use Left Arm -Pulse Rate (60-100) 67 Intake and Output for Last 24 Hours 10/21/19 10/22/19 10/23/19 23:59 23:59 23:59 Intake Total 180 / 180 240 / 240 Output Total 350 / 350 550 / 550 Balance -170 / -170 -310 / -310 General: Awake, Alert, Oriented x 3, Cooperative, No Acute Distress HEENT: Atraumatic, Normocephalic, PERRL, EOMI, Sclera Non Icteric Oral: Moist Mucosa Neck: Supple, Good ROM, No JVD Lungs: Diminished Sky Bases, Rales - Sky Bases Cardiovascular: Regular Rhythm, Normal S1, Normal S2 Murmur Murmur: Grade 2/6, Mid Systolic, LLSB, LVOT Abdomen: Bowel Sounds Present, Soft, Non Tender Extremities: No edema Psych/Mental Status: Appropriate 10/22/19 13:45: PT 16.1 H, INR 1.3 10/22/19 13:45: Magnesium 2.2 10/22/19 19:10: Troponin I < 0.015 10/22/19 21:37: Troponin I < 0.015 10/23/19 03:30: Urine Color Yellow, Urine Clarity Clear, Urine pH 6.0, Ur Specific [place] 1.010, Urine Protein Negative, Urine Glucose (UA) Normal, Urine Ketones Negative, Urine Occult Blood Negative, Urine Nitrite Negative, Urine Bilirubin Negative, Urine Urobilinogen Normal, Ur Leukocyte Esterase 500 H, Urine RBC 0 SEEN, Urine WBC 0-5 SEEN 10/23/19 06:28: WBC 4.4, RBC 2.32 L, Hgb 7.8 L, Hct 25.0 L, MCV 107.8 H, MCH 33.6 H, MCHC 31.2 L, Plt Count 101 L, MPV 10.4 10/23/19 06:28: Sodium 142, Potassium 4.2, Chloride 101, Carbon Dioxide 37.0 H, Anion Gap 4 L, BUN 33 H, Creatinine 1.56 H, Est GFR (MDRD) Af Amer 41 L, Est GFR (MDRD) Non-Af 34 L, BUN/Creatinine Ratio 21.2 H, Glucose 77, Calcium 8.7, Phosphorus 3.4, Magnesium 2.2, Total Bilirubin 0.60, Triglycerides 72, Cholesterol 133, LDL Cholesterol 76, VLDL Cholesterol 14, HDL Cholesterol 43 10/23/19 15:54: PT 17.2 H, INR 1.4, APTT 39.1 H Rhythm: EKG: ECHO: Interpretation Summary The study was technically difficult. Left ventricular systolic function is lower limits of normal. The estimated ejection fraction is 50 %. Moderately dilated right ventricle. Mild to moderate global right ventricular systolic dysfunction. The left atrium is severely enlarged. The right atrium is mildly enlarged. An annuloplasty ring is noted in the mitral position. Mild diffuse mitral valve thickening. Mitral valve doming/Hockey Sticking MIld (1+) transvalvular insufficiency of the mitral valve. An annuloplasty ring is noted in the tricuspid position. Moderate transvalvular insufficiency of the tricuspid valve. Moderate focal aortic valve calcification. Trivial aortic valve insufficiency. Trivial pulmonic valve insufficiency. Echo lucency compatible with a pleural effusion. Right ventricular systolic pressure estimated to be 53 mmHg. There is evidence of diastolic dysfunction. Comment: 2D echocardiographic images demonstrate a right atrial echodensity appearing compatible with a right atrial thrombus. Stress Test: 07-16-2007: [facility] : Pharmacologic stress nuclear imaging study: No evidence of stress-induced myocardial ischemia: Reported LVEF of 39% at rest Cardiac Cath: 06-02-2009: [facility]: Right heart catheterization: RA mean pressure 18 mmHg; RV pressure 35/17 mmHg; PA pressure 36/21 mmHg; PA mean pressure 26 mmHg; pulmonary capillary wedge pressure mean of 26 mmHg Cardiac catheter: 04-20-2009: [facility]: Left main-normal; LAD-normal; LCx-nondominant and normal; RCA-normal CT Surgery: 05-19-2009: [facility]: Mitral valve repair with a 26 mm Fletcher Madison annuloplasty ring; placement of an Linn stitch; tricuspid valve repair with a 28 mm tricuspid annuloplasty ring; ligation of the left atrial appendage ICD: Tronic Bi-V [employer]ECKTIE [employer]PERATOR POCK[employer] PIECES device CXR: Preliminary evaluation: Portable chest x-ray: Post open heart surgery changes; ICD present; increased pulmonary vascularity; bilateral pleural effusions; please see official report Assessment/Plan 1. Acute on chronic systolic mediated CHF At the present time she does appear to have evidence of acute on chronic systolic mediated CHF. She will continue to be monitored. She will continue medical therapy with her IV diuresis. Eventually her IV diuresis will need to be changed to oral diuretics to try and maintain her volume status. 2. Non-CAD related cardiomyopathy She does have a history of a non-CAD related cardiomyopathy. Her left ventricular systolic function has improved over time on medical therapy and with her biventricular ICD. However she does have right ventricular dilatation and dysfunction. At the moment she does need to continue combined medical therapy. 3. Status post mitral valve repair She has a history of mitral valve repair. She has been followed by history, exam, and echocardiogram. Her most recent echocardiogram performed earlier this day is as noted. 4. Status post tricuspid valve repair She has a history of tricuspid valve repair. Again she has been followed noninvasively. Her echocardiographic from earlier this day is as noted. 5. Atrial flutter status post EPS/RFA She has a history of underlying atrial dysrhythmia/flutter status post EPS/RFA. At the moment she continues with an underlying electronic ventricular paced rhythm. 6. Biventricular ICD/[employer] PIECES Her biventricular ICD has been interrogated in the past as an outpatient. It has been functioning appropriately. 7. Hyperlipidemia She should continue risk factor evaluation and care as deemed appropriate. 8. Hypertension Her blood pressure will be monitored. In the past she has gone from being hypertensive to having difficulty with hypotension. This is impacted her medications and the dose of her medications. 9. Pancytopenia She does have pancytopenia. She states she is being followed by her PCP with this. She is no longer being followed by hematology oncology. It may not be unreasonable, especially in light of her clinical course, her echocardiographic findings, and the need for a return to anticoagulant therapy, to consider once her volume status is stabilized PRBC transfusion to help improve her H&H and her oxygen carrying capacity, etc. 10. Right atrial thrombus She does have echocardiographic findings compatible with a right atrial thrombus. She will need to return to anticoagulant therapy. She has been placed on IV heparin and she will be eventually transitioned to oral warfarin. She will need to monitor herself carefully to avoid any falls, injuries, as well as to monitor for any other obvious spontaneous hemorrhagic events. Overall, she is a very frail and fragile lady. She has complex cardiovascular and medical conditions. She has been trying to live at home with assistance from her son. Her son is with her at this time and has stated that he has wanted to discuss with her PCP a palliative care consultation. Perhaps this can be performed while she is in the hospital. Comment: The patient's case was discussed and reviewed with the patient, her son, and previously with Dr. Monroe. This note was generated using a voice recognition system and there may be incorrect words, spelling or punctuation that were not noted when reviewing the office note prior to saving.
[2019-10-23] MEDS: Heparin Injection (Vial) 5,000 UNIT/ML VIAL 3500 UNIT IV (17:02)
[2019-10-23] MEDS: HEPARIN/D5w 25,000 UNITS 25,000 UNITS/250 ML IV.SOLN. 7 UNITS IV (17:03)
--- NOTE | 2019-10-23 17:50 | CM.UR ---
RN CM Assessment Introduced role of RN CM to patient. Patient is alert and able to participate in RN CM Assessment. Care providers, pharmacy, and demographics verified. No family at bedside. Presentation: Worsening sob Admit Dx: acute systolic heart failure Re-Admit: no Barriers/Issues: none PCP: janette Specialists: Racheal Preferred Pharmacy: [facility] Insurance: [facility]/anthem Rx Benefit: Yes LNOK: Son, Aaron Whiting LW/HPOA: None, declines at this time. Living Arrangements: Lives in 1 story home with son. has ramp to help her get in. ADL?s: Showers and dresses self. Son cooks and he will freeze stuff for her to reheat. He cleans and sets up her pills. States she still handles her own finances. Transportation: son DME: O2 @2 liters from [employer], power chair, wheelchair, walker, grab bars and shower chair. DME co: [employer] HHC: [facility] for PT after shoulder surgery. SNF: [facility] but she didn't like it. Goal: Home with son DC PLAN: Home with son. I recommended home care but she was hesitant. I asked her to think about it and if she is agreeable let her nurse know. I recommended home care for nurse to educate on heart failure and assess cardiopulmonary status. Patient does not weigh daily although she states she has had HF for years. Recommended PT as well for home. Sienna Jason RN, CCM.
[2019-10-23] MEDS: LORazepam 1 MG Tablet PO (21:02)
[2019-10-23] MEDS: Mirtazapine 15 MG Tablet 45 MG PO (21:03)
[2019-10-23] MEDS: Sertraline 100 MG Tablet 150 MG PO (21:04)
[2019-10-23] MEDS: Mag Hydrox/Al Hydrox/Simeth 30 ML UDC PO (21:54)
[2019-10-23 23:37] LABS: Partial Thromboplast Time 143.5 Seconds (24.1-36.2)
[2019-10-24] VITALS (10 sets, daily range): BP systolic 97–124; BP diastolic 51–63; PULSE 68–714; RESP 18–19; TEMP 36.7–37; O2SAT 96–100
[2019-10-24] MEDS: Acetaminophen 325 MG Tablet 650 MG PO (04:27)
[2019-10-24 05:15] LABS: Hematocrit 26.8 % (37-47); Hemoglobin 8.3 g/dL (12.0-15.0); Mean Corpuscular Hgb 33.1 pg (27.0-32.0); Mean Corpuscular Volume 106.8 fL (81-99); Mean Platelet Vol. 9.9 fl (6.2-12.0); Platelet Count 124 K/mm3 (150-450); RBC Distribution Width CV 12.8 % (11.6-14.6); RBC Distribution Width SD 50.3 fl (35.1-43.9); Red Blood Count 2.51 M/mm3 (4.2-5.4); White Blood Count 4.6 K/mm3 (4.4-11.0)
[2019-10-24 05:33] LABS: Anion Gap 5 (5-15); BUN 36 mg/dL (7-18); BUN/Creat Ratio 22.5 RATIO (10-20); Calcium,Total 8.4 mg/dL (8.5-10.1); Chloride 98 mmol/L (98-107); EST Glomerular Filtration Rate 33 mL/min (>60); Est Glom Filt Rate - Afr Amer 40 mL/min (>60); Estimated Creatinine Clearance 25.02 ml/min; Glucose 87 mg/dL (74-106); Potassium 3.9 mmol/L (3.5-5.1); Sodium Level 139 mmol/L (136-145)
[2019-10-24] MEDS: Furosemide 40 MG/4 ML Vial IV (05:47)
[2019-10-24 08:54] LABS: International Normalized Ratio 1.3; Prothrombin Time (Protime)PT. 16.1 SECONDS (11.7-14.9)
[2019-10-24] MEDS: SACUBITRIL/VALSARTAN 49-51 MG TABLET 1 EACH PO ×2 (09:27→21:08)
[2019-10-24] MEDS: Famotidine 20 MG Tablet PO (09:27)
[2019-10-24] MEDS: DULoxetine Hcl 60 MG Capsule PO (09:27)
[2019-10-24] MEDS: Vitamin B Comp W-C Capsule 1 CAP PO (09:27)
[2019-10-24] MEDS: Carvedilol 6.25 MG Tablet PO ×2 (09:28→21:09)
[2019-10-24] MEDS: Isosorbide Mononitrate 30 MG Tablet 15 MG PO (09:28)
[2019-10-24] MEDS: Aspirin E.C. 81 MG Tablet PO (09:28)
--- NOTE | 2019-10-24 09:51 | PN_ITS ---
Patient Problems: Active and Suspected Problems (Last Reviewed 10/22/19 @ 22:04 by Tenisha Salamanca DO) Right atrial thrombus (Acute) Subjective: Patient seen and examined. Reports improvement in breathing. Complains of dry nose with a mild nasal bleeding this morning which is since resolved. Denies other complaints. - Physical Exam Vitals/I&O's: Vital Signs Temp Pulse Resp BP Pulse Ox 98.1 F 69 18 100/57 L 96 10/24/19 04:00 10/24/19 04:00 10/24/19 04:00 10/24/19 04:00 10/24/19 07:33 Oxygen Flow Rate (L/min) 3 Oxygen Delivery Method Nasal Cannula Weight: 123 lb 14.397 oz Body Mass Index (BMI) 22.1 Orthostatic Vital Signs Start: 10/22/19 18:06 Freq: q24h Status: Active Protocol: Activity Type Activity Date Activity User E-Sign Co-Sign Detail Recorded Client Recorded Date Recorded By Document 10/24/19 04:00 [id number] 10/24/19 04:21 10/24/19 04:00 Orthostatic Vitals Standing -Blood Pressure (90/60-120/80) 124/57 H -Extremity Use Left Arm -Pulse Rate (60-100) 70 Sitting -Blood Pressure (90/60-120/80) 123/63 H -Extremity Use Left Arm -Pulse Rate (60-100) 70 Lying -Blood Pressure (90/60-120/80) 100/57 L -Extremity Use Left Arm -Pulse Rate (60-100) 69 Intake and Output for Last 24 Hours 10/22/19 10/23/19 10/24/19 23:59 23:59 23:59 Intake Total 180 / 180 646.2 / 846.2 338.07 / 338.07 Output Total 350 / 350 1000 / 1200 400 / 400 Balance -170 / -170 -353.8 / -353.8 -61.93 / -61.93 General: Alert, Oriented x3, Cooperative HEENT: Atraumatic, PERRLA, EOMI, Normocephalic Oral: Dry Mucosa Neck: Supple, No JVD, Negative Carotid Bruits Lungs: Clear to auscultation, Diminished Cardiovascular: Regular rate, Regular Rhythm, Normal S1, Normal S2, Murmur Abdomen: Bowel Sounds Present, Soft, Non Tender, Non-Distended Extremities: No clubbing, No cyanosis, No edema, Capillary Refill Less than 3 Seconds Skin: No rashes, No breakdown Musculoskeletal: No Tenderness to Palpation of Joints or Extremities Neurological: Cranial nerves II-XII grossly intact, Neuro grossly intact Psych/Mental Status: Normal Affect, Appropriate Microbiology Past 72 Hours 10/22/19 13:41 Mucosa - Nose Influenza Types A,B Direct FA (HADLEY) - Final Laboratory Results 10/23/19 15:54: PT 17.2 H, INR 1.4, APTT 39.1 H 10/23/19 23:08: APTT 143.5 H* 10/24/19 04:53: WBC 4.6, RBC 2.51 L, Hgb 8.3 L, Hct 26.8 L, MCV 106.8 H, MCH 33.1 H, MCHC 31.0 L, RDW Std Deviation 50.3 H, RDW Coeff of [place]ane 12.8, Plt Count 124 L, MPV 9.9 10/24/19 04:53: Sodium 139, Potassium 3.9, Chloride 98, Carbon Dioxide 36.0 H, Anion Gap 5, BUN 36 H, Creatinine 1.60 H, Estim Creat Clear Calc 25.02, Est GFR (MDRD) Af Amer 40 L, Est GFR (MDRD) Non-Af 33 L, BUN/Creatinine Ratio 22.5 H, Glucose 87, Calcium 8.4 L 10/24/19 04:53: APTT 71.0 H 10/24/19 04:53: PT 16.1 H, INR 1.3 Current Medications Acetaminophen (Tylenol) 650 mg PO Q6H PRN PRN PRN Reason: Pain Score 1-3/Temp > 100.7 F Last Admin: 10/24/19 04:27 Dose: 650 mg Documented by: Al Hydroxide/Mg Hydroxide (Mylanta Ii) 30 ml PO Q6H PRN PRN PRN Reason: Gastric Burning Last Admin: 10/23/19 21:54 Dose: 30 ml Documented by: Albuterol Sulfate (Ventolin Aerosols) 2.5 mg INHALATION Q2H PRN PRN PRN Reason: SOB/Wheezing Aspirin (Ecotrin) 81 mg PO DAILY@0800 DENY Last Admin: 10/24/19 09:28 Dose: 81 mg Documented by: Carvedilol (Coreg) 6.25 mg PO BID [facility] Last Admin: 10/24/19 09:28 Dose: 6.25 mg Documented by: Cholecalciferol (Vitamin D) 2,000 unit PO DAILY [facility] Last Admin: 10/24/19 09:27 Dose: 2,000 unit Documented by: Dicyclomine HCl (Bentyl) 10 mg PO DINNER [facility] Last Admin: 10/23/19 16:32 Dose: 10 mg Documented by: Duloxetine HCl (Cymbalta) 60 mg PO DAILY [facility] Last Admin: 10/24/19 09:27 Dose: 60 mg Documented by: Famotidine (Pepcid) 20 mg PO DAILY [facility] Last Admin: 10/24/19 09:27 Dose: 20 mg Documented by: Ferrous Sulfate (Ferrous Sulfate) 325 mg PO DAILY@1200 [facility] Last Admin: 10/23/19 12:56 Dose: 325 mg Documented by: Furosemide (Lasix) 20 mg PO BID@1000,1800 [facility] Guaifenesin (Robitussin) 20 ml PO Q4H PRN PRN PRN Reason: COUGH Heparin Sodium (Porcine) (Heparin Na) 0 unit IV UD PRN; Protocol Heparin Sodium/Dextrose () 25,000 units in 250 mls @ 7 mls/hr IV .[id number] [facility]; Protocol Last Titration: 10/24/19 05:40 Dose: 300 units/hr, 3 mls/hr Documented by: Isosorbide Mononitrate (Imdur) 15 mg PO DAILY [facility] Last Admin: 10/24/19 09:28 Dose: 15 mg Documented by: Levothyroxine Sodium (Synthroid) 25 mcg PO DAILY@0600 [facility] Last Admin: 10/24/19 05:48 Dose: Not Given Documented by: Lorazepam (Ativan) 1 mg PO QHS [facility] Last Admin: 10/23/19 21:02 Dose: 1 mg Documented by: Lorazepam (Ativan) 0.5 mg PO DAILY@1200 [facility] Last Admin: 10/23/19 12:56 Dose: 0.5 mg Documented by: Mirtazapine (Remeron) 45 mg PO QHS [facility] Last Admin: 10/23/19 21:03 Dose: 45 mg Documented by: Morphine Sulfate () 1 mg IV Q3H PRN PRN PRN Reason: Pain Score 6-10/10 Multi-Ingredient Cream (Eucerin) 1 applic TOPICAL DAILY [facility]; Protocol Last Admin: 10/23/19 09:43 Dose: 1 applicatio Documented by: Multivitamins (Allbee W/C Caplet, Thera B Comp/C) 1 capsule PO DAILY [facility] Last Admin: 10/24/19 09:27 Dose: 1 capsule Documented by: Nitroglycerin (Nitrostat) 0.4 mg SUBLINGUAL Q5M PRN PRN Reason: CARDIAC/CHEST PAIN Prochlorperazine Edisylate (Compazine Iv) 5 mg IV Q4H PRN PRN PRN Reason: Breakthrough Nausea/Vomiting Sacubitril/Valsartan (Entresto 49 Mg-51 Mg Tablet) 1 each PO BID [facility] Last Admin: 10/24/19 09:27 Dose: 1 each Documented by: Senna/Docusate Sodium (Senokot-S, Rody-Colace) 2 tablet PO BID PRN PRN PRN Reason: Constipation Sertraline HCl (Zoloft) 150 mg PO QHS [facility] Last Admin: 10/23/19 21:04 Dose: 150 mg Documented by: Sodium Chloride () 10 - 40 ml IV UD PRN PRN Reason: SALINE FLUSH Last Admin: 10/23/19 21:04 Dose: 10 ml Documented by: Sodium Chloride (Emery Nasal [place]) 2 spray NASAL TID PRN PRN PRN Reason: NASAL DRYNESS Medical Necessity - Tobacco Use Smoking Status: Never smoker Tobacco Use: Non-smoker Assessment/Plan All Active Problems (Last Reviewed 10/22/19 @ 22:04 by Tenisha Salamanca DO) Right atrial thrombus (Acute) 1. Acute on chronic diastolic CHF with chronic hypoxic respiratory failure-BNP greater than 2000 on admission. Chest x-ray at admission consistent with CHF. Echocardiogram July 2018 demonstrated an EF of 55%. Patient has history of nonischemic cardiomyopathy with prior EF in 2016 20%. Troponin negative. Strict I&O. Daily weight. Transition from IV Lasix to oral Lasix 20 mg twice daily. Repeat echocardiogram demonstrated an EF of 50%, right atrial thrombus. 2. Right atrial thrombus-cardiology consulted. Continue IV heparin drip. Initiated on Coumadin, trend INR. 3. Chronic kidney disease stage III-stable, trend BMP. 4. Anemia of chronic disease-slightly below baseline, trend CBC. 5. Paroxysmal atrial fibrillation-continue carvedilol, aspirin. Not on ant icoagulation. 6. Hypertension-stable, continue carvedilol, isosorbide, Entresto. 7. Status post AICD 8. Monoclonal gammopathy-unknown etiology. 9. 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 10. 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 11. Depression-continue sertraline regimen. 12. GERD-not on regimen. DVT prophylaxis-heparin gtt This patient was seen by DUC Montero under the supervision of Dr. Monroe.
--- NOTE | 2019-10-24 12:21 | PN.CARD_ITS ---
Subjectve: The patient is awake and alert. She states her breathing has improved overall. She has had no symptoms of acute chest discomfort. Objective: Vital Signs Temp Pulse Resp BP Pulse Ox 98.0 F 70 19 H 101/51 L 97 10/24/19 10:00 10/24/19 11:49 10/24/19 10:00 10/24/19 10:00 10/24/19 10:00 Oxygen Flow Rate (L/min) 3 Oxygen Delivery Method Nasal Cannula Weight: 123 lb 14.397 oz Body Mass Index (BMI) 22.1 Orthostatic Vital Signs Start: 10/22/19 18:06 Freq: q24h Status: Active Protocol: Activity Type Activity Date Activity User E-Sign Co-Sign Detail Recorded Client Recorded Date Recorded By Document 10/24/19 04:00 [id number] 10/24/19 04:21 CS 10/24/19 04:00 Orthostatic Vitals Standing -Blood Pressure (90/60-120/80 mm Hg) 124/57 H -Extremity Use Left Arm -Pulse Rate (60-100 beats/min) 70 Sitting -Blood Pressure (90/60-120/80 mm Hg) 123/63 H -Extremity Use Left Arm -Pulse Rate (60-100 beats/min) 70 Lying -Blood Pressure (90/60-120/80 mm Hg) 100/57 L -Extremity Use Left Arm -Pulse Rate (60-100 beats/min) 69 Intake and Output for Last 24 Hours 10/22/19 10/23/19 10/24/19 23:59 23:59 23:59 Intake Total 180 / 180 646.2 / 846.2 458.07 / 458.07 Output Total 350 / 350 1000 / 1200 600 / 600 Balance -170 / -170 -353.8 / -353.8 -141.93 / -141.93 General: Awake, Alert, Oriented x 3, Cooperative, - - Frail-appearing HEENT: Atraumatic, Normocephalic, PERRL, EOMI, Sclera Non Icteric Oral: Moist Mucosa Neck: Supple, Good ROM Lungs: Diminished [place] Cardiovascular: Regular Rhythm, Normal S1, Normal S2 Murmur Murmur: Grade 2/6, Mid Systolic, LLSB, LVOT Abdomen: Bowel Sounds Present, Soft, Non Tender Extremities: No edema Psych/Mental Status: Appropriate 10/23/19 15:54: PT 17.2 H, INR 1.4, APTT 39.1 H 10/23/19 23:08: APTT 143.5 H* 10/24/19 04:53: WBC 4.6, RBC 2.51 L, Hgb 8.3 L, Hct 26.8 L, MCV 106.8 H, MCH 33.1 H, MCHC 31.0 L, Plt Count 124 L, MPV 9.9 10/24/19 04:53: Sodium 139, Potassium 3.9, Chloride 98, Carbon Dioxide 36.0 H, Anion Gap 5, BUN 36 H, Creatinine 1.60 H, Est GFR (MDRD) Af Amer 40 L, Est GFR (MDRD) Non-Af 33 L, BUN/Creatinine Ratio 22.5 H, Glucose 87, Calcium 8.4 L 10/24/19 04:53: APTT 71.0 H 10/24/19 04:53: PT 16.1 H, INR 1.3 10/24/19 11:35: APTT 45.0 H Rhythm: Electronic ventricular paced rhythm Medical Necessity - Tobacco Use Smoking Status: Never smoker Tobacco Use: Non-smoker Assessment/Plan 1. Acute on chronic systolic mediated CHF At the present time she does appear to have evidence of acute on chronic systolic mediated CHF. She will continue to be monitored. She will continue medical therapy with transition of her IV diuresis to oral diuresis. 2. Non-CAD related cardiomyopathy She does have a history of a non-CAD related cardiomyopathy. Her left ventricular systolic function has improved over time on medical therapy and with her biventricular ICD. However she does have right ventricular dilatation and dysfunction. At the moment she does need to continue combined medical therapy. 3. Status post mitral valve repair She has a history of mitral valve repair. She has been followed by history, exam, and echocardiogram. Her most recent echocardiogram performed earlier this day is as noted. 4. Status post tricuspid valve repair She has a history of tricuspid valve repair. Again she has been followed noninvasively. Her echocardiographic from earlier this day is as noted. 5. Atrial flutter status post EPS/RFA She has a history of underlying atrial dysrhythmia/flutter status post EPS/RFA. At the moment she continues with an underlying electronic ventricular paced rhythm. 6. Biventricular ICD/[employer] Her biventricular ICD has been interrogated in the past as an outpatient. It has been functioning appropriately. 7. Hyperlipidemia She should continue risk factor evaluation and care as deemed appropriate. 8. Hypertension Her blood pressure will be monitored. In the past she has gone from being hypertensive to having difficulty with hypotension. This is impacted her medications and the dose of her medications. 9. Pancytopenia She does have pancytopenia. She states she is being followed by her PCP with this. She is no longer being followed by hematology oncology. It may not be unreasonable, especially in light of her clinical course, her echocardiographic findings, and the need for a return to anticoagulant therapy, to consider once her volume status is stabilized PRBC transfusion to help improve her H&H and her oxygen carrying capacity, etc. 10. Right atrial thrombus She does have echocardiographic findings compatible with a right atrial thrombus. She will need to return to anticoagulant therapy. She has been placed on IV heparin and she will be eventually transitioned to oral warfarin. She will need to monitor herself carefully to avoid any falls, injuries, as well as to monitor for any other obvious spontaneous hemorrhagic events. Comment: The patient's case was discussed and reviewed with the patient and Dr. Monroe. This note was generated using a voice recognition system and there may be incorrect words, spelling or punctuation that were not noted when reviewing the office note prior to saving.
[2019-10-24] MEDS: LORazepam 0.5 MG Tablet PO (13:08)
[2019-10-24] MEDS: Ferrous Sulfate 325 MG Tablet PO (13:08)
[2019-10-24] MEDS: Dicyclomine 10 MG Capsule PO (15:48)
[2019-10-24] MEDS: Furosemide 20 MG Tablet PO (18:39)
[2019-10-24 20:51] LABS: Partial Thromboplast Time 50.2 Seconds (24.1-36.2)
[2019-10-24] MEDS: LORazepam 1 MG Tablet PO (21:07)
[2019-10-24] MEDS: Sertraline 100 MG Tablet 150 MG PO (21:08)
[2019-10-24] MEDS: Mirtazapine 15 MG Tablet 45 MG PO (21:09)
[2019-10-25] VITALS (14 sets, daily range): BP systolic 96–117; BP diastolic 42–76; PULSE 67–91; RESP 16–18; TEMP 36.4–36.9; O2SAT 96–98
[2019-10-25 03:12] LABS: International Normalized Ratio 1.4; Prothrombin Time (Protime)PT. 17.1 SECONDS (11.7-14.9)
[2019-10-25 03:22] LABS: Partial Thromboplast Time 48.6 Seconds (24.1-36.2)
[2019-10-25 03:34] LABS: Anion Gap 5 (5-15); BUN 41 mg/dL (7-18); BUN/Creat Ratio 22.7 RATIO (10-20); Calcium,Total 8.6 mg/dL (8.5-10.1); Chloride 99 mmol/L (98-107); Creatinine, Serum 1.81 mg/dL (0.55-1.02); EST Glomerular Filtration Rate 29 mL/min (>60); Est Glom Filt Rate - Afr Amer 35 mL/min (>60); Estimated Creatinine Clearance 22.12 ml/min; Glucose 99 mg/dL (74-106); Potassium 3.9 mmol/L (3.5-5.1); Sodium Level 141 mmol/L (136-145)
[2019-10-25 05:14] LABS: Absolute Lymphocyte Count 0.79 X10^3/uL (0.83-4.51); Absolute Neutrophil Count 2.9 X10^3/uL (2.0-7.7); Basophil# 0.03 X10^3/uL; Basophil% 0.7 % (0-1); Eosinophils% 4.5 % (0-5); Hematocrit 25.9 % (37-47); Hemoglobin 8.2 g/dL (12.0-15.0); Lymphocyte # 0.79 X10^3/ul (4.0); Mean Corp Hgb Conc 31.7 g/dL (32-36); Mean Corpuscular Hgb 33.6 pg (27.0-32.0); Mean Corpuscular Volume 106.1 fL (81-99); Mean Platelet Vol. 10.2 fl (6.2-12.0); Monocyte# 0.45 X10^3/uL; Monocyte% 10.2 % (0-10); NRBC Flagged by Analyzer 0 % (0-5); Neutrophil # 2.91 X10^3/uL (2.7-7.7); Neutrophil % 66.1 % (47-70); Platelet Count 136 K/mm3 (150-450); RBC Distribution Width CV 13.2 % (11.6-14.6); RBC Distribution Width SD 51.3 fl (35.1-43.9); Red Blood Count 2.44 M/mm3 (4.2-5.4); White Blood Count 4.4 K/mm3 (4.4-11.0)
[2019-10-25] MEDS: Aspirin E.C. 81 MG Tablet PO (09:05)
[2019-10-25] MEDS: Vitamin B Comp W-C Capsule 1 CAP PO (09:05)
[2019-10-25] MEDS: Famotidine 20 MG Tablet PO (09:05)
[2019-10-25] MEDS: DULoxetine Hcl 60 MG Capsule PO (09:05)
[2019-10-25] MEDS: Ferrous Sulfate 325 MG Tablet PO (09:06)
[2019-10-25 10:05] LABS: Partial Thromboplast Time 100.1 Seconds (24.1-36.2)
[2019-10-25] MEDS: Carvedilol 6.25 MG Tablet PO ×2 (10:07→22:09)
[2019-10-25] MEDS: SACUBITRIL/VALSARTAN 49-51 MG TABLET 1 EACH PO ×2 (10:07→22:09)
[2019-10-25] MEDS: LORazepam 0.5 MG Tablet PO (12:16)
--- NOTE | 2019-10-25 12:40 | CASEMGMT ---
Per MYSQL DEVELOPER patient is interested in Palliative Care. SW spoke with patient and she confirmed she did want Palliative Care. SW asked her if she would like Palliative to call her son or call her to arrange appt. She would prefer they call her. JEFFREY called [facility] with the Palliative referral. JEFFREY spoke with Rafaela and let her know patient would prefer they call her to arrange appt and not her son. Information was faxed to Palliative Care. Radha ESCOBAR MSW
--- NOTE | 2019-10-25 12:47 | CHAPLAIN ---
Type of Pastoral Visit _x__ Initial Visit ___ Follow-up Visit ___ On-call Visit ___ General Patient Visit ___ Spiritual Assessment ___ Family Conference ___ Bereavement ___ Rapid Response ___ Code Blue ___ Other (describe below) Pastoral Care Referral From _x__ Patient ___ Family ___ Nurse ___ Physician ___ Health Program Manager ___ Business Support Liaison ___ Other (describe below) Sacrament/Intervention _x__ Active listening ___ Anointing ___ Buddhist ___ Bereavement ___ Communion _x__ Diandra exploration ___ ___ Life review _x__ Prayer ___ Reconciliation ___ Sacrament of Sick _x__ Supportive presence ___ Wedding ___ Other (describe below) Pastoral Comments this divider operator will contact [facility] pastoral associate at request of this patient; pt has spiritual needs that she recognizes per pt
--- NOTE | 2019-10-25 12:53 | PN_ITS ---
<Francisca Portillo - Last Filed: 10/25/19 13:11> Patient Problems: Active and Suspected Problems (Last Updated 10/25/19 @ 13:58 by Martha Hernandez MD) Right atrial thrombus (Acute) Subjective: Patient seen and examined. No acute events overnight. Denies current complaints. Breathing continues to be improved. - Physical Exam Vitals/I&O's: Vital Signs Temp Pulse Resp BP Pulse Ox 98.0 F 75 16 103/42 L 98 10/25/19 08:42 10/25/19 11:03 10/25/19 08:42 10/25/19 08:42 10/25/19 08:42 Oxygen Flow Rate (L/min) 2 Oxygen Delivery Method Nasal Cannula Weight: 122 lb 12.76 oz Body Mass Index (BMI) 22.1 Orthostatic Vital Signs Start: 10/22/19 18:06 Freq: q24h Status: Active Protocol: Activity Type Activity Date Activity User E-Sign Co-Sign Detail Recorded Client Recorded Date Recorded By Document 10/25/19 03:14 [id number] 10/25/19 03:14 CS 10/25/19 03:14 Orthostatic Vitals Standing -Blood Pressure (90/60-120/80) 115/56 L -Extremity Use Left Arm -Pulse Rate (60-100) 78 Sitting -Blood Pressure (90/60-120/80) 115/65 -Extremity Use Left Arm -Pulse Rate (60-100) 74 Lying -Blood Pressure (90/60-120/80) 112/76 -Extremity Use Left Arm -Pulse Rate (60-100) 72 Intake and Output for Last 24 Hours 10/23/19 10/24/19 10/25/19 23:59 23:59 23:59 Intake Total 646.2 / 846.2 1087.12 / 1087.12 598.58 / 598.58 Output Total 1000 / 1200 1000 / 1000 175 / 175 Balance -353.8 / -353.8 87.12 / 87.12 423.58 / 423.58 General: Alert, Oriented x3, Cooperative HEENT: Atraumatic, PERRLA, EOMI, Normocephalic Oral: Dry Mucosa Neck: Supple, No JVD, Negative Carotid Bruits Lungs: Clear to auscultation, Diminished Cardiovascular: Regular rate, Regular Rhythm, Normal S1, Normal S2, Murmur Abdomen: Bowel Sounds Present, Soft, Non Tender, Non-Distended Extremities: No clubbing, No cyanosis, No edema, Capillary Refill Less than 3 Seconds Skin: No rashes, No breakdown Musculoskeletal: No Tenderness to Palpation of Joints or Extremities, Cachexia, Muscle Wasting Neurological: Cranial nerves II-XII grossly intact, Neuro grossly intact Psych/Mental Status: Normal Affect, Appropriate Microbiology Past 72 Hours 10/22/19 13:41 Mucosa - Nose Influenza Types A,B Direct FA ([facility]) - Final Laboratory Results 10/24/19 20:22: APTT 50.2 H 10/25/19 02:53: WBC Cancelled, Corrected WBC Cancelled, RBC Cancelled, Hgb Cancelled, Hct Cancelled, MCV Cancelled, MCH Cancelled, MCHC Cancelled, RDW Std Deviation Cancelled, RDW Coeff of [place] Cancelled, Plt Count Cancelled, MPV Cancelled, Immature Gran % (Auto) Cancelled, Neut % (Auto) Cancelled, Lymph % (Auto) Cancelled, [place] % (Auto) Cancelled, Eos % (Auto) Cancelled, Baso % (Auto) Cancelled, Absolute Neuts (auto) Cancelled, Absolute Lymphs (auto) Cancelled, Total Counted Cancelled, Neutrophils % (Manual) Cancelled, Band Neutrophils % Cancelled, Lymphocytes % (Manual) Cancelled, Monocytes % (Manual) Cancelled, Eosinophils % (Manual) Cancelled, Basophils % (Manual) Cancelled, Metamyelocytes % Cancelled, Myelocytes % Cancelled, Promyelocytes % Cancelled, Blast Cells % Cancelled, Plasma Cell % (Manual) Cancelled, Other Cells % Cancelled, Nucleated RBC % Cancelled, Nucleated RBCs/100 WBC Cancelled, Differential Comment Cancelled, Diff Path Review Cancelled, Hypersegmented Neuts Cancelled, Atypical Lymphocytes Cancelled, Reactive Lymphocytes Cancelled, Smudge Cells Cancelled, Toxic Granulation Cancelled, Toxic Vacuolation Cancelled, Dohle Bodies Cancelled, Roly Rods Cancelled, Platelet Estimate Cancelled, Plt Morphology Comment Cancelled, RBC Morphology Cancelled, Polychromasia Cancelled, Hypochromasia Cancelled, Poikilocytosis Cancelled, Basophilic Stippling Cancelled, Anisocytosis Cancelled, Microcytosis Cancelled, Macrocytosis Cancelled, Spherocytes Cancelled, Sickle Cells Cancelled, Target Cells Cancelled, Tear Drop Cells Cancelled, Ovalocytes Cancelled, Stomatocytes Cancelled, [place] Bodies Cancelled, Anita Cells Cancelled, Bite Cells Cancelled, Crenated Cell Cancelled, Acanthocytes (Spur) Cancelled, Rouleaux Cancelled, Schistocytes Cancelled 10/25/19 02:53: PT 17.1 H, INR 1.4 10/25/19 02:53: Sodium 141, Potassium 3.9, Chloride 99, Carbon Dioxide 37.0 H, Anion Gap 5, BUN 41 H, Creatinine 1.81 H, Estim Creat Clear Calc 22.12, Est GFR (MDRD) Af Amer 35 L, Est GFR (MDRD) Non-Af 29 L, BUN/Creatinine Ratio 22.7 H, Glucose 99, Calcium 8.6 10/25/19 02:53: APTT 48.6 H 10/25/19 04:56: WBC 4.4, RBC 2.44 L, Hgb 8.2 L, Hct 25.9 L, MCV 106.1 H, MCH 33.6 H, MCHC 31.7 L, RDW Std Deviation 51.3 H, RDW Coeff of [place] 13.2, Plt Count 136 L, MPV 10.2, Immature Gran % (Auto) 0.500, Neut % (Auto) 66.1, Lymph % (Auto) 18.0 L, [place] % (Auto) 10.2 H, Eos % (Auto) 4.5, Baso % (Auto) 0.7, Absolute Neuts (auto) 2.9, Absolute Lymphs (auto) 0.79 L, Nucleated RBC % 0 10/25/19 09:35: APTT 100.1 H* Current Medications Acetaminophen (Tylenol) 650 mg PO Q6H PRN PRN PRN Reason: Pain Score 1-3/Temp > 100.7 F Last Admin: 10/24/19 04:27 Dose: 650 mg Documented by: Al Hydroxide/Mg Hydroxide (Mylanta Ii) 30 ml PO Q6H PRN PRN PRN Reason: Gastric Burning Last Admin: 10/23/19 21:54 Dose: 30 ml Documented by: Albuterol Sulfate (Ventolin Aerosols) 2.5 mg INHALATION Q2H PRN PRN PRN Reason: SOB/Wheezing Aspirin (Ecotrin) 81 mg PO DAILY@0800 [facility] Last Admin: 10/25/19 09:05 Dose: 81 mg Documented by: Carvedilol (Coreg) 6.25 mg PO BID [facility] Last Admin: 10/25/19 10:07 Dose: 6.25 mg Documented by: Cholecalciferol (Vitamin D) 2,000 unit PO DAILY [facility] Last Admin: 10/25/19 09:05 Dose: 2,000 unit Documented by: Dicyclomine HCl (Bentyl) 10 mg PO DINNER [facility] Last Admin: 10/24/19 15:48 Dose: 10 mg Documented by: Duloxetine HCl (Cymbalta) 60 mg PO DAILY [facility] Last Admin: 10/25/19 09:05 Dose: 60 mg Documented by: Famotidine (Pepcid) 20 mg PO DAILY [facility] Last Admin: 10/25/19 09:05 Dose: 20 mg Documented by: Ferrous Sulfate (Ferrous Sulfate) 325 mg PO DAILY@1200 [facility] Last Admin: 10/25/19 09:06 Dose: 325 mg Documented by: Furosemide (Lasix) 20 mg PO BID@1000,1800 [facility] Last Admin: 10/25/19 10:06 Dose: Not Given Documented by: Guaifenesin (Robitussin) 20 ml PO Q4H PRN PRN PRN Reason: COUGH Heparin Sodium (Porcine) (Heparin Na) 0 unit IV UD PRN; Protocol Heparin Sodium/Dextrose () 25,000 units in 250 mls @ 7 mls/hr IV .[id number] [facility]; Protocol Last Titration: 10/25/19 11:25 Dose: 400 units/hr, 4 mls/hr Documented by: Isosorbide Mononitrate (Imdur) 15 mg PO DAILY [facility] Last Admin: 10/25/19 10:06 Dose: Not Given Documented by: Levothyroxine Sodium (Synthroid) 25 mcg PO DAILY@0600 [facility] Last Admin: 10/25/19 06:11 Dose: Not Given Documented by: Lorazepam (Ativan) 1 mg PO QHS [facility] Last Admin: 10/24/19 21:07 Dose: 1 mg Documented by: Lorazepam (Ativan) 0.5 mg PO DAILY@1200 [facility] Last Admin: 10/25/19 12:16 Dose: 0.5 mg Documented by: Mirtazapine (Remeron) 45 mg PO QHS [facility] Last Admin: 10/24/19 21:09 Dose: 45 mg Documented by: Morphine Sulfate () 1 mg IV Q3H PRN PRN PRN Reason: Pain Score 6-10/10 Multi-Ingredient Cream (Eucerin) 1 applic TOPICAL DAILY [facility]; Protocol Last Admin: 10/25/19 09:06 Dose: 1 applicatio Documented by: Multivitamins (Allbee W/C Caplet, Thera B Comp/C) 1 capsule PO DAILY [facility] Last Admin: 10/25/19 09:05 Dose: 1 capsule Documented by: Nitroglycerin (Nitrostat) 0.4 mg SUBLINGUAL Q5M PRN PRN Reason: CARDIAC/CHEST PAIN Prochlorperazine Edisylate (Compazine Iv) 5 mg IV Q4H PRN PRN PRN Reason: Breakthrough Nausea/Vomiting Sacubitril/Valsartan (Entresto 49 Mg-51 Mg Tablet) 1 each PO BID [facility] Last Admin: 10/25/19 10:07 Dose: 1 each Documented by: Senna/Docusate Sodium (Senokot-S, Rody-Colace) 2 tablet PO BID PRN PRN PRN Reason: Constipation Sertraline HCl (Zoloft) 150 mg PO QHS [facility] Last Admin: 10/24/19 21:08 Dose: 150 mg Documented by: Sodium Chloride () 10 - 40 ml IV UD PRN PRN Reason: SALINE FLUSH Last Admin: 10/23/19 21:04 Dose: 10 ml Documented by: Sodium Chloride ([place] Nasal Pointblank) 2 spray NASAL TID PRN PRN PRN Reason: NASAL DRYNESS Warfarin Sodium (Coumadin (Pbkc)) 5 mg PO DAILY@1700 [facility] Medical Necessity - Tobacco Use Smoking Status: Never smoker Tobacco Use: Non-smoker Assessment/Plan All Active Problems (Last Updated 10/25/19 @ 13:58 by Martha Hernandez MD) Right atrial thrombus (Acute) 1. Acute on chronic diastolic CHF with chronic hypoxic respiratory failure-BNP greater than 2000 on admission. Chest x-ray at admission consistent with CHF. Echocardiogram July 2018 demonstrated an EF of 55%. Patient has history of nonischemic cardiomyopathy with prior EF in 2016 20%. Troponin negative. Strict I&O. Daily weight. Transition from IV Lasix to oral Lasix 20 mg twice daily. Repeat echocardiogram demonstrated an EF of 50%, right atrial thrombus. 2. Right atrial thrombus-cardiology consulted. Continue IV heparin drip. Initiated on Coumadin, trend INR. 3. Chronic kidney disease stage III-stable, trend BMP. 4. Anemia of chronic disease-slightly below baseline, trend CBC. 5. Paroxysmal atrial fibrillation-continue carvedilol, aspirin. Not on anticoagulation. 6. Hypertension-stable, continue carvedilol, isosorbide, Entresto. 7. Status post AICD 8. Monoclonal gammopathy-unknown etiology. 9. 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 10. 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 11. Depression-continue sertraline regimen. 12. GERD-not on regimen. DVT prophylaxis-heparin gtt Discharge planning: Pending therapeutic INR, further PT eval and palliative consult This patient was seen by DUC Montero under the supervision of Dr. Hernandez. <Martha Hernandez E - Last Filed: 10/25/19 14:03> - Physical Exam Vitals/I&O's: Vital Signs Temp Pulse Resp BP Pulse Ox 98.0 F 75 16 103/42 L 98 10/25/19 08:42 10/25/19 11:03 10/25/19 08:42 10/25/19 08:42 10/25/19 08:42 Oxygen Flow Rate (L/min) 2 Oxygen Delivery Method Nasal Cannula Weight: 122 lb 12.76 oz Body Mass Index (BMI) 22.1 Orthostatic Vital Signs Start: 10/22/19 18:06 Freq: q24h Status: Active Protocol: Activity Type Activity Date Activity User E-Sign Co-Sign Detail Recorded Client Recorded Date Recorded By Document 10/25/19 03:14 [id number] 10/25/19 03:14 10/25/19 03:14 Orthostatic Vitals Standing -Blood Pressure (90/60-120/80) 115/56 L -Extremity Use Left Arm -Pulse Rate (60-100) 78 Sitting -Blood Pressure (90/60-120/80) 115/65 -Extremity Use Left Arm -Pulse Rate (60-100) 74 Lying -Blood Pressure (90/60-120/80) 112/76 -Extremity Use Left Arm -Pulse Rate (60-100) 72 Intake and Output for Last 24 Hours 10/23/19 10/24/19 10/25/19 23:59 23:59 23:59 Intake Total 646.2 / 846.2 1087.12 / 1087.12 598.58 / 598.58 Output Total 1000 / 1200 1000 / 1000 175 / 175 Balance -353.8 / -353.8 87.12 / 87.12 423.58 / 423.58 Microbiology Past 72 Hours 10/22/19 13:41 Mucosa - Nose Influenza Types A,B Direct FA ([facility]) - Final Laboratory Results 10/24/19 20:22: APTT 50.2 H 10/25/19 02:53: WBC Cancelled, Corrected WBC Cancelled, RBC Cancelled, Hgb Cancelled, Hct Cancelled, MCV Cancelled, MCH Cancelled, MCHC Cancelled, RDW Std Deviation Cancelled, RDW Coeff of [place] Cancelled, Plt Count Cancelled, MPV Cancelled, Immature Gran % (Auto) Cancelled, Neut % (Auto) Cancelled, Lymph % (Auto) Cancelled, [place] % (Auto) Cancelled, Eos % (Auto) Cancelled, Baso % (Auto) Cancelled, Absolute Neuts (auto) Cancelled, Absolute Lymphs (auto) Cancelled, Total Counted Cancelled, Neutrophils % (Manual) Cancelled, Band Neutrophils % Cancelled, Lymphocytes % (Manual) Cancelled, Monocytes % (Manual) Cancelled, Eosinophils % (Manual) Cancelled, Basophils % (Manual) Cancelled, Metamyelocytes % Cancelled, Myelocytes % Cancelled, Promyelocytes % Cancelled, Blast Cells % Cancelled, Plasma Cell % (Manual) Cancelled, Other Cells % Cancelled, Nucleated RBC % Cancelled, Nucleated RBCs/100 WBC Cancelled, Differential Comment Cancelled, Diff Path Review Cancelled, Hypersegmented Neuts Cancelled, Atypical Lymphocytes Cancelled, Reactive Lymphocytes Cancelled, Smudge Cells Cancelled, Toxic Granulation Cancelled, Toxic Vacuolation Cancelled, Dohle Bodies Cancelled, Roly Rods Cancelled, Platelet Estimate Cancelled, Plt Morphology Comment Cancelled, RBC Morphology Cancelled, Polychromasia Cancelled, Hypochromasia Cancelled, Poikilocytosis Cancelled, Basophilic Stippling Cancelled, Anisocytosis Cancelled, Microcytosis Cancelled, Macrocytosis Cancelled, Spherocytes Cancelled, Sickle Cells Cancelled, Target Cells Cancelled, Tear Drop Cells Cancelled, Ovalocytes Cancelled, Stomatocytes Cancelled, [place]ole-[place] Bodies Cancelled, [place] Cells Cancelled, Bite Cells Cancelled, Crenated Cell Cancelled, Acanthocytes (Spur) Cancelled, Rouleaux Cancelled, Schistocytes Cancelled 10/25/19 02:53: PT 17.1 H, INR 1.4 10/25/19 02:53: Sodium 141, Potassium 3.9, Chloride 99, Carbon Dioxide 37.0 H, Anion Gap 5, BUN 41 H, Creatinine 1.81 H, Estim Creat Clear Calc 22.12, Est GFR (MDRD) Af Amer 35 L, Est GFR (MDRD) Non-Af 29 L, BUN/Creatinine Ratio 22.7 H, Glucose 99, Calcium 8.6 10/25/19 02:53: APTT 48.6 H 10/25/19 04:56: WBC 4.4, RBC 2.44 L, Hgb 8.2 L, Hct 25.9 L, MCV 106.1 H, MCH 33.6 H, MCHC 31.7 L, RDW Std Deviation 51.3 H, RDW Coeff of [place] 13.2, Plt Count 136 L, MPV 10.2, Immature Gran % (Auto) 0.500, Neut % (Auto) 66.1, Lymph % (Auto) 18.0 L, [place] % (Auto) 10.2 H, Eos % (Auto) 4.5, Baso % (Auto) 0.7, Absolute Neuts (auto) 2.9, Absolute Lymphs (auto) 0.79 L, Nucleated RBC % 0 10/25/19 09:35: APTT 100.1 H* Current Medications Acetaminophen (Tylenol) 650 mg PO Q6H PRN PRN PRN Reason: Pain Score 1-3/Temp > 100.7 F Last Admin: 10/24/19 04:27 Dose: 650 mg Documented by: Al Hydroxide/Mg Hydroxide (Mylanta Ii) 30 ml PO Q6H PRN PRN PRN Reason: Gastric Burning Last Admin: 10/23/19 21:54 Dose: 30 ml Documented by: Albuterol Sulfate (Ventolin Aerosols) 2.5 mg INHALATION Q2H PRN PRN PRN Reason: SOB/Wheezing Aspirin (Ecotrin) 81 mg PO DAILY@0800 [facility] Last Admin: 10/25/19 09:05 Dose: 81 mg Documented by: Carvedilol (Coreg) 6.25 mg PO BID [facility] Last Admin: 10/25/19 10:07 Dose: 6.25 mg Documented by: Cholecalciferol (Vitamin D) 2,000 unit PO DAILY [facility] Last Admin: 10/25/19 09:05 Dose: 2,000 unit Documented by: Dicyclomine HCl (Bentyl) 10 mg PO DINNER [facility] Last Admin: 10/24/19 15:48 Dose: 10 mg Documented by: Duloxetine HCl (Cymbalta) 60 mg PO DAILY [facility] Last Admin: 10/25/19 09:05 Dose: 60 mg Documented by: Famotidine (Pepcid) 20 mg PO DAILY [facility] Last Admin: 10/25/19 09:05 Dose: 20 mg Documented by: Ferrous Sulfate (Ferrous Sulfate) 325 mg PO DAILY@1200 [facility] Last Admin: 10/25/19 09:06 Dose: 325 mg Documented by: Furosemide (Lasix) 20 mg PO BID@1000,1800 [facility] Last Admin: 10/25/19 10:06 Dose: Not Given Documented by: Guaifenesin (Robitussin) 20 ml PO Q4H PRN PRN PRN Reason: COUGH Heparin Sodium (Porcine) (Heparin Na) 0 unit IV UD PRN; Protocol Heparin Sodium/Dextrose () 25,000 units in 250 mls @ 7 mls/hr IV .[id number] [facility]; Protocol Last Titration: 10/25/19 11:25 Dose: 400 units/hr, 4 mls/hr Documented by: Isosorbide Mononitrate (Imdur) 15 mg PO DAILY [facility] Last Admin: 10/25/19 10:06 Dose: Not Given Documented by: Levothyroxine Sodium (Synthroid) 25 mcg PO DAILY@0600 [facility] Last Admin: 10/25/19 06:11 Dose: Not Given Documented by: Lorazepam (Ativan) 1 mg PO QHS [facility] Last Admin: 10/24/19 21:07 Dose: 1 mg Documented by: Lorazepam (Ativan) 0.5 mg PO DAILY@1200 [facility] Last Admin: 10/25/19 12:16 Dose: 0.5 mg Documented by: Mirtazapine (Remeron) 45 mg PO QHS [facility] Last Admin: 10/24/19 21:09 Dose: 45 mg Documented by: Morphine Sulfate () 1 mg IV Q3H PRN PRN PRN Reason: Pain Score 6-10/10 Multi-Ingredient Cream (Eucerin) 1 applic TOPICAL DAILY [facility]; Protocol Last Admin: 10/25/19 09:06 Dose: 1 applicatio Documented by: Multivitamins ([place] W/C Caplet, Thera B Comp/C) 1 capsule PO DAILY [facility] Last Admin: 10/25/19 09:05 Dose: 1 capsule Documented by: Nitroglycerin (Nitrostat) 0.4 mg SUBLINGUAL Q5M PRN PRN Reason: CARDIAC/CHEST PAIN Prochlorperazine Edisylate (Compazine Iv) 5 mg IV Q4H PRN PRN PRN Reason: Breakthrough Nausea/Vomiting Sacubitril/Valsartan (Entresto 49 Mg-51 Mg Tablet) 1 each PO BID [facility] Last Admin: 10/25/19 10:07 Dose: 1 each Documented by: Senna/Docusate Sodium (Senokot-S, Rody-Colace) 2 tablet PO BID PRN PRN PRN Reason: Constipation Sertraline HCl (Zoloft) 150 mg PO QHS [facility] Last Admin: 10/24/19 21:08 Dose: 150 mg Documented by: Sodium Chloride () 10 - 40 ml IV UD PRN PRN Reason: SALINE FLUSH Last Admin: 10/23/19 21:04 Dose: 10 ml Documented by: Sodium Chloride ([place] Nasal Pointblank) 2 spray NASAL TID PRN PRN PRN Reason: NASAL DRYNESS Warfarin Sodium (Coumadin (Pbkc)) 7.5 mg PO DAILY@1700 [facility] Assessment/Plan Hospitalist note: I am seeing this patient in conjunction with Francisca Portillo. I independently seen and examined the patient. Progress note above, laboratory data and imaging studies reviewed and I concur with the above treatment plan. Today, patient denied any complaints. She denied chest pain or shortness of breath. Her vital signs are stable. - Physical Exam General: Alert, Oriented x3, Cooperative, No apparent distress. HEENT: Atraumatic, PERRLA, EOMI. Neck: Supple, No JVD, Negative Carotid Bruits, Trachea Midline, Thyroid Normal. Lungs: Diminished breath sounds bilateral, scattered rhonchi, No wheeze, No rales. Cardiovascular: Regular rate, Regular Rhythm, Normal S1, Normal S2, PMI Normal. Abdomen: Bowel Sounds Present, Soft, Non Tender, Non-Distended, No Hepato- splenomegaly. Extremities: No clubbing, No cyanosis, No edema Skin: No rashes, No breakdown Neurological: Cranial nerves are intact, neuro grossly intact Vital Signs are stable. Assessment and plan: #1 acute on chronic diastolic CHF: Transitioned to oral Lasix, on Coreg and nitrate. Her symptoms are improving. Her vital signs are stable, pulse ox is maintained on 2 L. 2D echocardiogram revealed ejection fraction 50%. Troponins are negative. Plan to continue same treatment. #2 acute right atrial thrombus: Remains on IV heparin drip, INR still subtherapeutic. Plan to continue heparin, Coumadin, repeat INR tomorrow morning. #3 other chronic medical problems: Stable, continue current medications as well. This note was generated with [employer] dictation software. It may contain incorrect words, spelling, and punctuation that were not noted in checking the note before signing. Code Visit Inpatient E&M: 77484 Subs Hosp L2
[2019-10-25 14:44] LABS: Partial Thromboplast Time 57.2 Seconds (24.1-36.2)
[2019-10-25] MEDS: Dicyclomine 10 MG Capsule PO (17:12)
--- NOTE | 2019-10-25 18:09 | PN.CARD_ITS ---
Subjectve: The patient is awake and alert. She states her breathing is better overall. She denies any ongoing chest discomfort. There is been no peripheral pitting edema. Objective: Vital Signs Temp Pulse Resp BP Pulse Ox 97.5 F L 70 18 100/68 98 10/25/19 17:10 10/25/19 17:10 10/25/19 17:10 10/25/19 17:10 10/25/19 17:10 Oxygen Flow Rate (L/min) 2 Oxygen Delivery Method Nasal Cannula Weight: 122 lb 12.76 oz Body Mass Index (BMI) 22.1 Orthostatic Vital Signs Start: 10/22/19 18:06 Freq: q24h Status: Active Protocol: Activity Type Activity Date Activity User E-Sign Co-Sign Detail Recorded Client Recorded Date Recorded By Document 10/25/19 03:14 GASTON [id number] 10/25/19 03:14 CS 10/25/19 03:14 Orthostatic Vitals Standing -Blood Pressure (90/60-120/80) 115/56 L -Extremity Use Left Arm -Pulse Rate (60-100) 78 Sitting -Blood Pressure (90/60-120/80) 115/65 -Extremity Use Left Arm -Pulse Rate (60-100) 74 Lying -Blood Pressure (90/60-120/80) 112/76 -Extremity Use Left Arm -Pulse Rate (60-100) 72 Intake and Output for Last 24 Hours 10/23/19 10/24/19 10/25/19 23:59 23:59 23:59 Intake Total 646.2 / 846.2 1087.12 / 1087.12 871.98 / 871.98 Output Total 1000 / 1200 1000 / 1000 175 / 175 Balance -353.8 / -353.8 87.12 / 87.12 696.98 / 696.98 General: Awake, Alert, Oriented x 3, Cooperative, - - Frail-appearing HEENT: Atraumatic, Normocephalic, PERRL, EOMI, Sclera Non Icteric Oral: Moist Mucosa Neck: Supple, Good ROM, No JVD Lungs: Diminished Sky Bases - Improved compared to previous evaluation Cardiovascular: Regular Rhythm, Normal S1, Normal S2 Murmur Murmur: Grade 2/6, Mid Systolic, LLSB, LVOT Abdomen: Bowel Sounds Present, Soft, Non Tender Extremities: No edema Psych/Mental Status: Appropriate 10/24/19 20:22: APTT 50.2 H 10/25/19 02:53: WBC Cancelled, Corrected WBC Cancelled, RBC Cancelled, Hgb Cancelled, Hct Cancelled, MCV Cancelled, MCH Cancelled, MCHC Cancelled, Plt Count Cancelled, MPV Cancelled, Immature Gran % (Auto) Cancelled, Neut % (Auto) Cancelled, Lymph % (Auto) Cancelled, [place] % (Auto) Cancelled, Eos % (Auto) Cancelled, Baso % (Auto) Cancelled, Absolute Neuts (auto) Cancelled, Total Counted Cancelled, Neutrophils % (Manual) Cancelled, Band Neutrophils % Cancelled, Lymphocytes % (Manual) Cancelled, Monocytes % (Manual) Cancelled, Eosinophils % (Manual) Cancelled, Basophils % (Manual) Cancelled, Metamyelocytes % Cancelled, Myelocytes % Cancelled, Promyelocytes % Cancelled, Blast Cells % Cancelled, Plasma Cell % (Manual) Cancelled, Other Cells % Cancelled, Nucleated RBC % Cancelled 10/25/19 02:53: PT 17.1 H, INR 1.4 10/25/19 02:53: Sodium 141, Potassium 3.9, Chloride 99, Carbon Dioxide 37.0 H, Anion Gap 5, BUN 41 H, Creatinine 1.81 H, Est GFR (MDRD) Af Amer 35 L, Est GFR (MDRD) Non-Af 29 L, BUN/Creatinine Ratio 22.7 H, Glucose 99, Calcium 8.6 10/25/19 02:53: APTT 48.6 H 10/25/19 04:56: WBC 4.4, RBC 2.44 L, Hgb 8.2 L, Hct 25.9 L, MCV 106.1 H, MCH 33.6 H, MCHC 31.7 L, Plt Count 136 L, MPV 10.2, Immature Gran % (Auto) 0.500, Neut % (Auto) 66.1, Lymph % (Auto) 18.0 L, [place] % (Auto) 10.2 H, Eos % (Auto) 4.5, Baso % (Auto) 0.7, Absolute Neuts (auto) 2.9, Nucleated RBC % 0 10/25/19 09:35: APTT 100.1 H* 10/25/19 14:25: APTT 57.2 H Rhythm: Electronic ventricular paced rhythm Medical Necessity - Tobacco Use Smoking Status: Never smoker Tobacco Use: Non-smoker Assessment/Plan 1. Acute on chronic systolic mediated CHF At the present time she does appear to have evidence of acute on chronic systolic mediated CHF. She will continue to be monitored. She will continue medical therapy with oral diuretics with adjustment of her doses as needed. 2. Non-CAD related cardiomyopathy She does have a history of a non-CAD related cardiomyopathy. Her left ventricular systolic function has improved over time on medical therapy and with her biventricular ICD. However she does have right ventricular dilatation and dysfunction. At the moment she does need to continue combined medical therapy. 3. Status post mitral valve repair She has a history of mitral valve repair. She has been followed by history, exam, and echocardiogram. Her most recent echocardiogram performed earlier this day is as noted. 4. Status post tricuspid valve repair She has a history of tricuspid valve repair. Again she has been followed noninvasively. Her echocardiographic from earlier this day is as noted. 5. Atrial flutter status post EPS/RFA She has a history of underlying atrial dysrhythmia/flutter status post EPS/RFA. At the moment she continues with an underlying electronic ventricular paced rhythm. 6. Biventricular ICD/[employer] Her biventricular ICD has been interrogated in the past as an outpatient. It has been functioning appropriately. 7. Hyperlipidemia She should continue risk factor evaluation and care as deemed appropriate. 8. Hypertension Her blood pressure will be monitored. In the past she has gone from being hypertensive to having difficulty with hypotension. This is impacted her medications and the dose of her medications. 9. Pancytopenia She does have pancytopenia. She states she is being followed by her PCP with this. She is no longer being followed by hematology oncology. It may not be unreasonable, especially in light of her clinical course, her echocardiographic findings, and the need for a return to anticoagulant therapy, to consider once her volume status is stabilized PRBC transfusion to help improve her H&H and her oxygen carrying capacity, etc. 10. Right atrial thrombus She does have echocardiographic findings compatible with a right atrial thrombus. She will need to return to anticoagulant therapy. She has been placed on IV heparin and she will be eventually transitioned to oral warfarin. She will need to monitor herself carefully to avoid any falls, injuries, as well as to monitor for any other obvious spontaneous hemorrhagic events. Comment: The patient's case was discussed and reviewed with the patient. This note was generated using a voice recognition system and there may be incorrect words, spelling or punctuation that were not noted when reviewing the office note prior to saving.
[2019-10-25 21:31] LABS: Partial Thromboplast Time 49.8 Seconds (24.1-36.2)
[2019-10-25] MEDS: HEPARIN/D5w 25,000 UNITS 25,000 UNITS/250 ML IV.SOLN. 5 UNITS IV (22:07)
[2019-10-25] MEDS: LORazepam 1 MG Tablet PO (22:08)
[2019-10-25] MEDS: Mirtazapine 15 MG Tablet 45 MG PO (22:09)
[2019-10-25] MEDS: Sertraline 100 MG Tablet 150 MG PO (22:10)
[2019-10-25] MEDS: Mag Hydrox/Al Hydrox/Simeth 30 ML UDC PO (23:05)
[2019-10-26] VITALS (14 sets, daily range): BP systolic 91–137; BP diastolic 48–70; PULSE 69–78; RESP 15–18; TEMP 36.4–36.9; O2SAT 95–100
[2019-10-26 03:43] LABS: Hematocrit 26.8 % (37-47); Hemoglobin 8.4 g/dL (12.0-15.0); Mean Corp Hgb Conc 31.3 g/dL (32-36); Mean Corpuscular Hgb 33.6 pg (27.0-32.0); Mean Corpuscular Volume 107.2 fL (81-99); Mean Platelet Vol. 10.1 fl (6.2-12.0); Platelet Count 143 K/mm3 (150-450); RBC Distribution Width SD 50.9 fl (35.1-43.9); White Blood Count 4.2 K/mm3 (4.4-11.0)
[2019-10-26 03:46] LABS: International Normalized Ratio 1.8; Prothrombin Time (Protime)PT. 20.8 SECONDS (11.7-14.9)
[2019-10-26 03:48] LABS: Partial Thromboplast Time 76.3 Seconds (24.1-36.2)
[2019-10-26 03:51] LABS: Anion Gap 3 (5-15); BUN 40 mg/dL (7-18); Calcium,Total 8.7 mg/dL (8.5-10.1); Chloride 101 mmol/L (98-107); Creatinine, Serum 1.74 mg/dL (0.55-1.02); EST Glomerular Filtration Rate 30 mL/min (>60); Est Glom Filt Rate - Afr Amer 36 mL/min (>60); Estimated Creatinine Clearance 23.01 ml/min; Glucose 94 mg/dL (74-106); Sodium Level 141 mmol/L (136-145)
[2019-10-26] MEDS: HEPARIN/D5w 25,000 UNITS 25,000 UNITS/250 ML IV.SOLN. 4 UNITS IV (03:54)
[2019-10-26] MEDS: Carvedilol 6.25 MG Tablet PO ×2 (09:13→21:33)
[2019-10-26] MEDS: SACUBITRIL/VALSARTAN 49-51 MG TABLET 1 EACH PO ×2 (09:13→21:33)
[2019-10-26] MEDS: Aspirin E.C. 81 MG Tablet PO (09:13)
[2019-10-26] MEDS: DULoxetine Hcl 60 MG Capsule PO (09:13)
[2019-10-26] MEDS: Vitamin B Comp W-C Capsule 1 CAP PO (09:13)
[2019-10-26] MEDS: Famotidine 20 MG Tablet PO (09:14)
[2019-10-26] MEDS: Ferrous Sulfate 325 MG Tablet PO (09:14)
--- NOTE | 2019-10-26 09:24 | PN.CARD_ITS ---
Subjectve: The patient is awake and alert. She denies any ongoing chest discomfort. She states her breathing is better overall. She has had no ongoing peripheral pitting edema. There has been no obvious hemorrhagic issues on her anticoagulant therapy. Objective: Vital Signs Temp Pulse Resp BP Pulse Ox 97.6 F L 73 16 97/52 L 96 10/26/19 09:01 10/26/19 09:01 10/26/19 09:01 10/26/19 09:01 10/26/19 09:01 Oxygen Flow Rate (L/min) 2 Oxygen Delivery Method Nasal Cannula Weight: 123 lb 7.342 oz Body Mass Index (BMI) 22.1 Orthostatic Vital Signs Start: 10/22/19 18:06 Freq: q24h Status: Active Protocol: Activity Type Activity Date Activity User E-Sign Co-Sign Detail Recorded Client Recorded Date Recorded By Document 10/26/19 04:00 CS [id number] 10/26/19 06:47 CS 10/26/19 04:00 Orthostatic Vitals Standing -Blood Pressure (90/60-120/80) 114/56 L -Extremity Use Left Arm -Pulse Rate (60-100) 75 Sitting -Blood Pressure (90/60-120/80) 132/70 H -Extremity Use Left Arm -Pulse Rate (60-100) 71 Lying -Blood Pressure (90/60-120/80) 91/49 L -Extremity Use Left Arm -Pulse Rate (60-100) 69 Intake and Output for Last 24 Hours 10/24/19 10/25/19 10/26/19 23:59 23:59 23:59 Intake Total 1087.12 / 1087.12 901.38 / 1021.38 228.92 / 228.92 Output Total 1000 / 1000 175 / 375 380 / 380 Balance 87.12 / 87.12 726.38 / 646.38 -151.08 / -151.08 General: Awake, Alert, Oriented x 3, Cooperative, No Acute Distress, - - Frai l/cachectic HEENT: Atraumatic, Normocephalic, PERRL, EOMI, Sclera Non Icteric Oral: Moist Mucosa Neck: Supple, Good ROM, No JVD Lungs: Diminished Sky Bases Cardiovascular: Regular Rhythm, Normal S1, Normal S2 Abdomen: Bowel Sounds Present, Soft, Non Tender Extremities: No edema Psych/Mental Status: Depressed 10/25/19 09:35: APTT 100.1 H* 10/25/19 14:25: APTT 57.2 H 10/25/19 21:05: APTT 49.8 H 10/26/19 03:22: WBC 4.2 L, RBC 2.50 L, Hgb 8.4 L, Hct 26.8 L, MCV 107.2 H, MCH 33.6 H, MCHC 31.3 L, Plt Count 143 L, MPV 10.1 10/26/19 03:22: Sodium 141, Potassium 4.0, Chloride 101, Carbon Dioxide 37.0 H, Anion Gap 3 L, BUN 40 H, Creatinine 1.74 H, Est GFR (MDRD) Af Amer 36 L, Est GFR (MDRD) Non-Af 30 L, BUN/Creatinine Ratio 23.0 H, Glucose 94, Calcium 8.7 10/26/19 03:22: PT 20.8 H, INR 1.8, APTT 76.3 H Rhythm: Ventricular paced rhythm Medical Necessity - Tobacco Use Smoking Status: Never smoker Tobacco Use: Non-smoker Assessment/Plan 1. Acute on chronic systolic mediated CHF At the present time she does appear to have evidence of acute on chronic systolic mediated CHF. She will continue to be monitored. She will continue medical therapy with oral diuretics with adjustment of her doses as needed. 2. Non-CAD related cardiomyopathy She does have a history of a non-CAD related cardiomyopathy. Her left ventricular systolic function has improved over time on medical therapy and with her biventricular ICD. However she does have right ventricular dilatation and dysfunction. At the moment she does need to continue combined medical therapy. 3. Status post mitral valve repair She has a history of mitral valve repair. She has been followed by history, exam, and echocardiogram. Her most recent echocardiogram performed earlier this day is as noted. 4. Status post tricuspid valve repair She has a history of tricuspid valve repair. Again she has been followed noninvasively. Her echocardiographic from earlier this day is as noted. 5. Atrial flutter status post EPS/RFA She has a history of underlying atrial dysrhythmia/flutter status post EPS/RFA. At the moment she continues with an underlying electronic ventricular paced rhythm. 6. Biventricular ICD/[employer] Her biventricular ICD has been interrogated in the past as an outpatient. It has been functioning appropriately. 7. Hyperlipidemia She should continue risk factor evaluation and care as deemed appropriate. 8. Hypertension Her blood pressure will be monitored. In the past she has gone from being hypertensive to having difficulty with hypotension. This is impacted her medications and the dose of her medications. 9. Pancytopenia She does have pancytopenia. She states she is being followed by her PCP with this. She is no longer being followed by hematology oncology. It may not be unreasonable, especially in light of her clinical course, her echocardiographic findings, and the need for a return to anticoagulant therapy, to consider once her volume status is stabilized PRBC transfusion to help improve her H&H and her oxygen carrying capacity, etc. 10. Right atrial thrombus She does have echocardiographic findings compatible with a right atrial thrombus. She will need to return to anticoagulant therapy. She has been placed on IV heparin. Her INR is 1.8. As her INR becomes therapeutic (ideally greater than 2.0), then she can be transitioned from IV heparin to her oral warfarin therapy. She will need to monitor herself carefully to avoid any falls, injuries, as well as to monitor for any other obvious spontaneous hemorrhagic events. Also, she states that she has a palliative care consult scheduled to occur this coming Friday at 1:30 PM at her home and barring unforeseen change. Comment: The patient's case was discussed and reviewed with the patient and the [facility] hospitalist. This note was generated using a voice recognition system and there may be incorrect words, spelling or punctuation that were not noted when reviewing the office note prior to saving.
[2019-10-26] MEDS: LORazepam 0.5 MG Tablet PO (11:28)
[2019-10-26 11:37] LABS: Partial Thromboplast Time 55.1 Seconds (24.1-36.2)
--- NOTE | 2019-10-26 13:03 | PN_ITS ---
<Francisca Portillo - Last Filed: 10/26/19 13:08> Patient Problems: Active and Suspected Problems (Last Updated 10/25/19 @ 13:58 by Martha Hernandez MD) Right atrial thrombus (Acute) Subjective: Patient seen and examined. Feels well this morning. States she is ready to go home. Denies current complaints. Awaiting INR to become therapeutic. - Physical Exam Vitals/I&O's: Vital Signs Temp Pulse Resp BP Pulse Ox 97.6 F L 78 16 97/52 L 96 10/26/19 09:01 10/26/19 11:07 10/26/19 09:01 10/26/19 09:01 10/26/19 09:01 Oxygen Flow Rate (L/min) 2 Oxygen Delivery Method Nasal Cannula Weight: 123 lb 7.342 oz Body Mass Index (BMI) 22.1 Orthostatic Vital Signs Start: 10/22/19 18:06 Freq: q24h Status: Active Protocol: Activity Type Activity Date Activity User E-Sign Co-Sign Detail Recorded Client Recorded Date Recorded By Document 10/26/19 04:00 [id number] 10/26/19 06:47 CS 10/26/19 04:00 Orthostatic Vitals Standing -Blood Pressure (90/60-120/80) 114/56 L -Extremity Use Left Arm -Pulse Rate (60-100) 75 Sitting -Blood Pressure (90/60-120/80) 132/70 H -Extremity Use Left Arm -Pulse Rate (60-100) 71 Lying -Blood Pressure (90/60-120/80) 91/49 L -Extremity Use Left Arm -Pulse Rate (60-100) 69 Intake and Output for Last 24 Hours 10/24/19 10/25/19 10/26/19 23:59 23:59 23:59 Intake Total 1087.12 / 1087.12 901.38 / 1021.38 739.85 / 739.85 Output Total 1000 / 1000 175 / 375 380 / 380 Balance 87.12 / 87.12 726.38 / 646.38 359.85 / 359.85 General: Alert, Oriented x3, Cooperative HEENT: Atraumatic, PERRLA, EOMI, Normocephalic Oral: Dry Mucosa Neck: Supple, No JVD, Negative Carotid Bruits Lungs: Clear to auscultation, Diminished Cardiovascular: Regular rate, Regular Rhythm, Normal S1, Normal S2, Murmur Abdomen: Bowel Sounds Present, Soft, Non Tender, Non-Distended Extremities: No clubbing, No cyanosis, No edema, Capillary Refill Less than 3 Seconds Skin: No rashes, No breakdown Musculoskeletal: No Tenderness to Palpation of Joints or Extremities Neurological: Cranial nerves II-XII grossly intact, Neuro grossly intact Psych/Mental Status: Normal Affect, Appropriate Laboratory Results 10/25/19 14:25: APTT 57.2 H 10/25/19 21:05: APTT 49.8 H 10/26/19 03:22: WBC 4.2 L, RBC 2.50 L, Hgb 8.4 L, Hct 26.8 L, MCV 107.2 H, MCH 33.6 H, MCHC 31.3 L, RDW Std Deviation 50.9 H, RDW Coeff of [place] 13.0, Plt Count 143 L, MPV 10.1 10/26/19 03:22: Sodium 141, Potassium 4.0, Chloride 101, Carbon Dioxide 37.0 H, Anion Gap 3 L, BUN 40 H, Creatinine 1.74 H, Estim Creat Clear Calc 23.01, Est GFR (MDRD) Af Amer 36 L, Est GFR (MDRD) Non-Af 30 L, BUN/Creatinine Ratio 23.0 H , Glucose 94, Calcium 8.7 10/26/19 03:22: PT 20.8 H, INR 1.8, APTT 76.3 H 10/26/19 10:14: APTT 55.1 H Current Medications Acetaminophen (Tylenol) 650 mg PO Q6H PRN PRN PRN Reason: Pain Score 1-3/Temp > 100.7 F Last Admin: 10/24/19 04:27 Dose: 650 mg Documented by: Al Hydroxide/Mg Hydroxide (Mylanta Ii) 30 ml PO Q6H PRN PRN PRN Reason: Gastric Burning Last Admin: 10/25/19 23:05 Dose: 30 ml Documented by: Albuterol Sulfate (Ventolin Aerosols) 2.5 mg INHALATION Q2H PRN PRN PRN Reason: SOB/Wheezing Aspirin (Ecotrin) 81 mg PO DAILY@0800 DENY Last Admin: 10/26/19 09:13 Dose: 81 mg Documented by: Carvedilol (Coreg) 6.25 mg PO BID [facility] Last Admin: 10/26/19 09:13 Dose: 6.25 mg Documented by: Cholecalciferol (Vitamin D) 2,000 unit PO DAILY [facility] Last Admin: 10/26/19 09:14 Dose: 2,000 unit Documented by: Dicyclomine HCl (Bentyl) 10 mg PO DINNER [facility] Last Admin: 10/25/19 17:12 Dose: 10 mg Documented by: Duloxetine HCl (Cymbalta) 60 mg PO DAILY [facility] Last Admin: 10/26/19 09:13 Dose: 60 mg Documented by: Famotidine (Pepcid) 20 mg PO DAILY [facility] Last Admin: 10/26/19 09:14 Dose: 20 mg Documented by: Ferrous Sulfate (Ferrous Sulfate) 325 mg PO DAILY@1200 [facility] Last Admin: 10/26/19 09:14 Dose: 325 mg Documented by: Furosemide (Lasix) 20 mg PO BID@1000,1800 [facility] Last Admin: 10/26/19 09:13 Dose: Not Given Documented by: Guaifenesin (Robitussin) 20 ml PO Q4H PRN PRN PRN Reason: COUGH Heparin Sodium (Porcine) (Heparin Na) 0 unit IV UD PRN; Protocol Heparin Sodium/Dextrose () 25,000 units in 250 mls @ 7 mls/hr IV .[id number] [facility]; Protocol Last Titration: 10/26/19 11:38 Dose: 400 units/hr, 4 mls/hr Documented by: Isosorbide Mononitrate (Imdur) 15 mg PO DAILY [facility] Last Admin: 10/26/19 09:13 Dose: Not Given Documented by: Levothyroxine Sodium (Synthroid) 25 mcg PO DAILY@0600 [facility] Last Admin: 10/26/19 05:04 Dose: Not Given Documented by: Lorazepam (Ativan) 1 mg PO QHS [facility] Last Admin: 10/25/19 22:08 Dose: 1 mg Documented by: Lorazepam (Ativan) 0.5 mg PO DAILY@1200 [facility] Last Admin: 10/26/19 11:28 Dose: 0.5 mg Documented by: Mirtazapine (Remeron) 45 mg PO QHS [facility] Last Admin: 10/25/19 22:09 Dose: 45 mg Documented by: Morphine Sulfate () 1 mg IV Q3H PRN PRN PRN Reason: Pain Score 6-10/10 Multi-Ingredient Cream (Eucerin) 1 applic TOPICAL DAILY [facility]; Protocol Last Admin: 10/26/19 09:12 Dose: 1 applicatio Documented by: Multivitamins (Allbee W/C Caplet, Thera B Comp/C) 1 capsule PO DAILY [facility] Last Admin: 10/26/19 09:13 Dose: 1 capsule Documented by: Nitroglycerin (Nitrostat) 0.4 mg SUBLINGUAL Q5M PRN PRN Reason: CARDIAC/CHEST PAIN Prochlorperazine Edisylate (Compazine Iv) 5 mg IV Q4H PRN PRN PRN Reason: Breakthrough Nausea/Vomiting Sacubitril/Valsartan (Entresto 49 Mg-51 Mg Tablet) 1 each PO BID [facility] Last Admin: 10/26/19 09:13 Dose: 1 each Documented by: Senna/Docusate Sodium (Senokot-S, Rody-Colace) 2 tablet PO BID PRN PRN PRN Reason: Constipation Sertraline HCl (Zoloft) 150 mg PO QHS [facility] Last Admin: 10/25/19 22:10 Dose: 150 mg Documented by: Sodium Chloride () 10 - 40 ml IV UD PRN PRN Reason: SALINE FLUSH Last Admin: 10/23/19 21:04 Dose: 10 ml Documented by: Sodium Chloride ([place] Nasal [place]) 2 spray NASAL TID PRN PRN PRN Reason: NASAL DRYNESS Warfarin Sodium (Coumadin (Pbkc)) 3 mg PO DAILY@1700 [facility] Medical Necessity - Tobacco Use Smoking Status: Never smoker Tobacco Use: Non-smoker Assessment/Plan All Active Problems (Last Updated 10/25/19 @ 13:58 by Martha Hernandez MD) Right atrial thrombus (Acute) 1. Acute on chronic diastolic CHF with chronic hypoxic respiratory failure-BNP greater than 2000 on admission. Chest x-ray at admission consistent with CHF. Echocardiogram July 2018 demonstrated an EF of 55%. Patient has history of nonischemic cardiomyopathy with prior EF in 2016 20%. Troponin negative. Strict I&O. Daily weight. Transition from IV Lasix to oral Lasix 20 mg twice daily. Repeat echocardiogram demonstrated an EF of 50%, right atrial thrombus. 2. Right atrial thrombus-cardiology consulted. Continue IV heparin drip. Initiated on Coumadin, trend INR. 3. Chronic kidney disease stage III-stable, trend BMP. 4. Anemia of chronic disease-slightly below baseline, trend CBC. 5. Paroxysmal atrial fibrillation-continue carvedilol, aspirin. Not on anticoagulation. 6. Hypertension-stable, continue carvedilol, isosorbide, Entresto. 7. Status post AICD 8. Monoclonal gammopathy-unknown etiology. 9. 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 10. 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 11. Depression-continue sertraline regimen. 12. GERD-not on regimen. DVT prophylaxis-heparin gtt Discharge planning: Pending therapeutic INR, outpatient palliative consult 10/29/19. This patient was seen by DUC Montero under the supervision of Dr. Hernandez. <Martha Hernandez E - Last Filed: 10/26/19 13:33> - Physical Exam Vitals/I&O's: Vital Signs Temp Pulse Resp BP Pulse Ox 97.6 F L 78 16 97/52 L 96 10/26/19 09:01 10/26/19 11:07 10/26/19 09:01 10/26/19 09:01 10/26/19 09:01 Oxygen Flow Rate (L/min) 2 Oxygen Delivery Method Nasal Cannula Weight: 123 lb 7.342 oz Body Mass Index (BMI) 22.1 Orthostatic Vital Signs Start: 10/22/19 18:06 Freq: q24h Status: Active Protocol: Activity Type Activity Date Activity User E-Sign Co-Sign Detail Recorded Client Recorded Date Recorded By Document 10/26/19 04:00 [id number] 10/26/19 06:47 10/26/19 04:00 Orthostatic Vitals Standing -Blood Pressure (90/60-120/80) 114/56 L -Extremity Use Left Arm -Pulse Rate (60-100) 75 Sitting -Blood Pressure (90/60-120/80) 132/70 H -Extremity Use Left Arm -Pulse Rate (60-100) 71 Lying -Blood Pressure (90/60-120/80) 91/49 L -Extremity Use Left Arm -Pulse Rate (60-100) 69 Intake and Output for Last 24 Hours 10/24/19 10/25/19 10/26/19 23:59 23:59 23:59 Intake Total 1087.12 / 1087.12 901.38 / 1021.38 739.85 / 739.85 Output Total 1000 / 1000 175 / 375 380 / 380 Balance 87.12 / 87.12 726.38 / 646.38 359.85 / 359.85 Laboratory Results 10/25/19 14:25: APTT 57.2 H 10/25/19 21:05: APTT 49.8 H 10/26/19 03:22: WBC 4.2 L, RBC 2.50 L, Hgb 8.4 L, Hct 26.8 L, MCV 107.2 H, MCH 33.6 H, MCHC 31.3 L, RDW Std Deviation 50.9 H, RDW Coeff of [place] 13.0, Plt Count 143 L, MPV 10.1 10/26/19 03:22: Sodium 141, Potassium 4.0, Chloride 101, Carbon Dioxide 37.0 H, Anion Gap 3 L, BUN 40 H, Creatinine 1.74 H, Estim Creat Clear Calc 23.01, Est GFR (MDRD) Af Amer 36 L, Est GFR (MDRD) Non-Af 30 L, BUN/Creatinine Ratio 23.0 H , Glucose 94, Calcium 8.7 10/26/19 03:22: PT 20.8 H, INR 1.8, APTT 76.3 H 10/26/19 10:14: APTT 55.1 H Current Medications Acetaminophen (Tylenol) 650 mg PO Q6H PRN PRN PRN Reason: Pain Score 1-3/Temp > 100.7 F Last Admin: 10/24/19 04:27 Dose: 650 mg Documented by: Al Hydroxide/Mg Hydroxide (Mylanta Ii) 30 ml PO Q6H PRN PRN PRN Reason: Gastric Burning Last Admin: 10/25/19 23:05 Dose: 30 ml Documented by: Albuterol Sulfate (Ventolin Aerosols) 2.5 mg INHALATION Q2H PRN PRN PRN Reason: SOB/Wheezing Aspirin (Ecotrin) 81 mg PO DAILY@0800 DENY Last Admin: 10/26/19 09:13 Dose: 81 mg Documented by: Carvedilol (Coreg) 6.25 mg PO BID [facility] Last Admin: 10/26/19 09:13 Dose: 6.25 mg Documented by: Cholecalciferol (Vitamin D) 2,000 unit PO DAILY [facility] Last Admin: 10/26/19 09:14 Dose: 2,000 unit Documented by: Dicyclomine HCl (Bentyl) 10 mg PO DINNER [facility] Last Admin: 10/25/19 17:12 Dose: 10 mg Documented by: Duloxetine HCl (Cymbalta) 60 mg PO DAILY [facility] Last Admin: 10/26/19 09:13 Dose: 60 mg Documented by: Famotidine (Pepcid) 20 mg PO DAILY [facility] Last Admin: 10/26/19 09:14 Dose: 20 mg Documented by: Ferrous Sulfate (Ferrous Sulfate) 325 mg PO DAILY@1200 [facility] Last Admin: 10/26/19 09:14 Dose: 325 mg Documented by: Furosemide (Lasix) 20 mg PO BID@1000,1800 [facility] Last Admin: 10/26/19 09:13 Dose: Not Given Documented by: Guaifenesin (Robitussin) 20 ml PO Q4H PRN PRN PRN Reason: COUGH Heparin Sodium (Porcine) (Heparin Na) 0 unit IV UD PRN; Protocol Heparin Sodium/Dextrose () 25,000 units in 250 mls @ 7 mls/hr IV .[id number] [facility]; Protocol Last Titration: 10/26/19 11:38 Dose: 400 units/hr, 4 mls/hr Documented by: Isosorbide Mononitrate (Imdur) 15 mg PO DAILY [facility] Last Admin: 10/26/19 09:13 Dose: Not Given Documented by: Levothyroxine Sodium (Synthroid) 25 mcg PO DAILY@0600 [facility] Last Admin: 10/26/19 05:04 Dose: Not Given Documented by: Lorazepam (Ativan) 1 mg PO QHS [facility] Last Admin: 10/25/19 22:08 Dose: 1 mg Documented by: Lorazepam (Ativan) 0.5 mg PO DAILY@1200 [facility] Last Admin: 10/26/19 11:28 Dose: 0.5 mg Documented by: Mirtazapine (Remeron) 45 mg PO QHS [facility] Last Admin: 10/25/19 22:09 Dose: 45 mg Documented by: Morphine Sulfate () 1 mg IV Q3H PRN PRN PRN Reason: Pain Score 6-10/10 Multi-Ingredient Cream (Eucerin) 1 applic TOPICAL DAILY [facility]; Protocol Last Admin: 10/26/19 09:12 Dose: 1 applicatio Documented by: Multivitamins (Allbee W/C Caplet, Thera B Comp/C) 1 capsule PO DAILY [facility] Last Admin: 10/26/19 09:13 Dose: 1 capsule Documented by: Nitroglycerin (Nitrostat) 0.4 mg SUBLINGUAL Q5M PRN PRN Reason: CARDIAC/CHEST PAIN Prochlorperazine Edisylate (Compazine Iv) 5 mg IV Q4H PRN PRN PRN Reason: Breakthrough Nausea/Vomiting Sacubitril/Valsartan (Entresto 49 Mg-51 Mg Tablet) 1 each PO BID [facility] Last Admin: 10/26/19 09:13 Dose: 1 each Documented by: Senna/Docusate Sodium (Senokot-S, Rody-Colace) 2 tablet PO BID PRN PRN PRN Reason: Constipation Sertraline HCl (Zoloft) 150 mg PO QHS [facility] Last Admin: 10/25/19 22:10 Dose: 150 mg Documented by: Sodium Chloride () 10 - 40 ml IV UD PRN PRN Reason: SALINE FLUSH Last Admin: 10/23/19 21:04 Dose: 10 ml Documented by: Sodium Chloride ([place] Nasal [place]) 2 spray NASAL TID PRN PRN PRN Reason: NASAL DRYNESS Warfarin Sodium (Coumadin (Pbkc)) 3 mg PO DAILY@1700 [facility] Assessment/Plan Hospitalist note: I am seeing this patient in conjunction with Francisca Portillo. I independently seen and examined the patient. Progress note above, laboratory data and imaging studies reviewed and I concur with the above treatment plan. Today, patient remained asymptomatic, no complaints. She denied chest pain or shortness of breath. Her vital signs are stable. - Physical Exam General: Alert, Oriented x3, Cooperative, No apparent distress. HEENT: Atraumatic, PERRLA, EOMI. Neck: Supple, No JVD, Negative Carotid Bruits, Trachea Midline, Thyroid Normal. Lungs: Diminished breath sounds bilateral, scattered rhonchi, No wheeze, No rales. Cardiovascular: Regular rate, Regular Rhythm, Normal S1, Normal S2, PMI Normal. Abdomen: Bowel Sounds Present, Soft, Non Tender, Non-Distended, No Hepato- splenomegaly. Extremities: No clubbing, No cyanosis, No edema Skin: No rashes, No breakdown Neurological: Cranial nerves are intact, neuro grossly intact Vital Signs are stable. Assessment and plan: #1 acute on chronic diastolic CHF: She is oral Lasix, on Coreg and nitrate. She is doing well. Her vital signs are stable, pulse ox is maintained on 2 L. 2D echocardiogram revealed ejection fraction 50%. Troponins are negative. Cardiology on the case, plan to continue same treatment, possible discharge home tomorrow. #2 acute right atrial thrombus: Remains on IV heparin drip, today's INR is 1.8, trending up. Plan to continue heparin, Coumadin, repeat INR tomorrow morning. #3 other chronic medical problems: Stable, continue current medications as well. This note was generated with ReviewPro dictation software. It may contain incorrect words, spelling, and punctuation that were not noted in checking the note before signing. Code Visit Inpatient E&M: 06520 Subs Hosp L2
[2019-10-26 14:41] LABS: Magnesium 2.7 mg/dL (1.6-2.6)
[2019-10-26] MEDS: Furosemide 20 MG Tablet PO (17:20)
[2019-10-26] MEDS: Dicyclomine 10 MG Capsule PO (17:20)
[2019-10-26 17:51] LABS: Partial Thromboplast Time 56.9 Seconds (24.1-36.2)
[2019-10-26] MEDS: Mirtazapine 15 MG Tablet 45 MG PO (21:33)
[2019-10-26] MEDS: Sertraline 100 MG Tablet 150 MG PO (21:33)
[2019-10-26] MEDS: Senna/Docusate Sodium 1 Tablet 2 TABLET PO (21:33)
[2019-10-26] MEDS: LORazepam 1 MG Tablet PO (21:33)
[2019-10-27] VITALS (8 sets, daily range): BP systolic 96–116; BP diastolic 41–58; PULSE 67–71; RESP 16–18; TEMP 36.3–36.8; O2SAT 97–100
[2019-10-27 06:23] LABS: Absolute Lymphocyte Count 0.91 X10^3/uL (0.83-4.51); Absolute Neutrophil Count 2.1 X10^3/uL (2.0-7.7); Basophil# 0.02 X10^3/uL; Basophil% 0.5 % (0-1); Eosinophil# 0.21 X10^3/uL; Eosinophils% 5.8 % (0-5); Hematocrit 26.5 % (37-47); Hemoglobin 8.2 g/dL (12.0-15.0); Lymphocyte # 0.91 X10^3/ul (4.0); Mean Corp Hgb Conc 30.9 g/dL (32-36); Mean Corpuscular Hgb 32.9 pg (27.0-32.0); Mean Corpuscular Volume 106.4 fL (81-99); Mean Platelet Vol. 10.2 fl (6.2-12.0); NRBC Flagged by Analyzer 0 % (0-5); Neutrophil # 2.09 X10^3/uL (2.7-7.7); Neutrophil % 57.4 % (47-70); Platelet Count 138 K/mm3 (150-450); RBC Distribution Width CV 13.3 % (11.6-14.6); RBC Distribution Width SD 51.6 fl (35.1-43.9); Red Blood Count 2.49 M/mm3 (4.2-5.4); White Blood Count 3.6 K/mm3 (4.4-11.0)
[2019-10-27 06:52] LABS: International Normalized Ratio 2.9; Partial Thromboplast Time 46.8 Seconds (24.1-36.2); Prothrombin Time (Protime)PT. 30.2 SECONDS (11.7-14.9)
[2019-10-27] MEDS: 0.9% Saline Lock 10 ML Syringe IV (08:13)
[2019-10-27] MEDS: Vitamin B Comp W-C Capsule 1 CAP PO (09:37)
[2019-10-27] MEDS: Famotidine 20 MG Tablet PO (09:38)
[2019-10-27] MEDS: Furosemide 20 MG Tablet PO (09:38)
[2019-10-27] MEDS: Carvedilol 6.25 MG Tablet PO (09:38)
[2019-10-27] MEDS: Isosorbide Mononitrate 30 MG Tablet 15 MG PO (09:38)
[2019-10-27] MEDS: DULoxetine Hcl 60 MG Capsule PO (09:38)
[2019-10-27] MEDS: SACUBITRIL/VALSARTAN 49-51 MG TABLET 1 EACH PO (09:39)
[2019-10-27] MEDS: Aspirin E.C. 81 MG Tablet PO (09:39)
--- NOTE | 2019-10-27 10:12 | CASEMGMT ---
This RN CM to room and pt is agreeable to [facility] at this time and states would like [facility] as she has had them in the past. Order placed for SN, PT/OT at this time and call to Regla at [facility] and she states that they can take pt at this time. Regla is aware that pt is being discharged today, voices understanding. SStnoah SCHAFER CM
--- NOTE | 2019-10-27 11:06 | PCM.DC ---
- Discharge Diagnoses Current Active Problems: Current Active and Chronic Problems (Last Updated 10/25/19 @ 13:58 by Martha Hernandez MD) Acute exacerbation of CHF (congestive heart failure) (Chronic) Right atrial thrombus (Acute) You will use the following diet at home:: No restrictions Discharge Activity: Return to Normal Activity Call your doctor if you observe: Shortness of breath, Dizziness, Fainting spells, Chest pain Additional Instructions: You will need repeat INR in 2 days which can be completed by home health and will need ordered by primary care provider. Allergies/Adverse Reactions: Allergies levothyroxine sodium [From Synthroid] Allergy (Severe, Verified 10/22/19 13:19) Pt states it caused renal failure. latex Allergy (Intermediate, Verified 10/22/19 13:19) Rash Medications to take at Discharge Dicyclomine HCl [Bentyl] 10 mg PO DINNER 08/29/17 Lorazepam [Ativan] 1 mg PO QHS 07/26/18 cholecalciferol (vitamin D3) 50 mcg (2,000 unit) capsule 2,000 unit PO DAILY 12/25/18 duloxetine 60 mg capsule,delayed release 60 mg PO DAILY 12/25/18 sertraline 100 mg tablet 150 mg PO QHS tab 12/25/18 furosemide 20 mg tablet 20 mg PO BID #180 tab 01/25/19 aspirin 81 mg tablet,delayed release 81 mg PO DAILY 05/05/19 carvedilol 6.25 mg tablet 6.25 mg PO BID #180 tab 06/21/19 Ferrous Sulfate [Iron] 325 mg PO DAILY 10/22/19 Isosorbide Mononitrate [Isosorbide Mononitrate ER] 15 mg PO DAILY 10/22/19 Lorazepam 0.5 mg PO DAILY@1200 10/22/19 Mirtazapine [Remeron] 45 mg PO QHS 10/22/19 Sacubitril/Valsartan 49-51 mg [Entresto 49 mg-51 mg Tablet] 1 ea PO BID 10/22/19 Vitamin B Complex [B Complex] 1 tab PO DAILY 10/22/19 Levothyroxine [Synthroid] 25 mcg PO DAILY@0600 #30 tab 10/27/19 Warfarin [Coumadin] 2 mg PO DAILY #30 tab 10/27/19 The following prescriptions were given: Warfarin [Coumadin] 2 mg PO DAILY #30 tab Transmission Status: Pending to [id number] Levothyroxine [Synthroid] 25 mcg PO DAILY@0600 #30 tab Transmission Status: Sent to [id number] Primary Care Physician: Landry Muse MD [Primary Care Provider] - Please follow up with your Primary Care Physician in: 1 Week Test Results: Test results from this visit will be discussed in further detail at your follow-up appointment, if applicable. Please Follow Up With: Carlos Springer MD When: 1 Week Please Follow Up With: Palliative When: Continue appointment as scheduled on 10/29/2019 Proposed Discharge Date: 10/27/19
--- NOTE | 2019-10-27 11:10 | CASEMGMT ---
As per CM assessment, pt does not have LW/POA and declined additional information at this time. FANI Nagel
--- NOTE | 2019-10-27 11:11 | DS.PCM_ITS ---
<Francisca Portillo - Last Filed: 10/27/19 11:18> Discharge Date and Diagnosis Date of Admission: 10/22/19 Date of Discharge: 10/27/19 - Primary Discharge Diagnosis Active and Suspected Problems (Last Updated 10/25/19 @ 13:58 by Martha Hernandez MD) 1. Acute on chronic diastolic CHF with chronic hypoxic respiratory failure 2. Right atrial thrombus 3. Chronic kidney disease stage III 4. Anemia of chronic disease 5. Paroxysmal atrial fibrillation 6. Hypertension 7. Status post AICD 8. Monoclonal gammopathy 9. Valvular heart disease with history of mitral valve repair and tricuspid valve repair 10. History of left atrial thrombus and left ventricular mural thrombus/history of PE 11. Depression 12. GERD - Secondary Discharge Diagnosis Chronic Problems (Last Updated 10/25/19 @ 13:58 by Martha Hernandez MD) Biventricular congestive heart failure (Chronic) Depression (Chronic) Esophageal reflux (Chronic) Heart valve replaced (Chronic) Mitral & Tricuspid valves replaced 05/19/09 @ [facility] Nonrheumatic mitral valve regurgitation (Chronic) Dilated cardiomyopathy (Chronic) Atrial flutter (Chronic) Left atrial thrombus (Chronic) Frequent falls (Chronic) Biventricular automatic implantable cardioverter defibrillator in situ (Chronic) Acute exacerbation of CHF (congestive heart failure) (Chronic) Pure hypercholesterolemia (Chronic) Essential hypertension (Chronic) Paroxysmal atrial fibrillation (Chronic) MGUS (monoclonal gammopathy of unknown significance) (Chronic) Pancytopenia (Chronic) CKD (chronic kidney disease), stage III (Chronic) Chronic systolic congestive heart failure (Chronic) 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) Chronic respiratory failure (Chronic) S/P mitral valve repair (Chronic ~05/19/09) 05/19/09, Mitral valve repair with placement of #26 Fletcher-Madison annulop lasty ring, placement of Linn stitch & tricuspid valve repair with placement of #28 tricuspid annuloplasty ring @ [facility] S/P tricuspid valve repair (Chronic ~05/19/09) 05/19/09 @ [facility] Status post ablation of atrial flutter (Chronic) Ventricular tachycardia (Chronic) Pulmonary embolus (Chronic) Mural thrombus of cardiac apex (Chronic) Hospital Course and Treatment Imaging Results: Diagnostic Data Chest X-Ray 10/22/19 14:00 IMPRESSION: CHF with pleural effusions more prominent on the right side with bibasilar atelectasis. Electronically Signed: Garth Anne, at 14:22 EST , Service support , Dr. Springer- Cardiology Operations: None Procedures: 2-D Echocardiogram Summary of Care Provided: The patient is a 79 year old F admitted 10/22/2019 due to shortness of breath. 1. Acute on chronic diastolic CHF with chronic hypoxic respiratory failure-BNP greater than 2000 on admission. Chest x-ray at admission consistent with CHF. Echocardiogram July 2018 demonstrated an EF of 55%. Patient has history of nonischemic cardiomyopathy with prior EF in 2016 20%. Troponin negative. Transitioned from IV Lasix to home oral Lasix 20 mg twice daily. Repeat echocardiogram demonstrated an EF of 50%, right atrial thrombus. Follow-up with cardiology, Dr. Springer in 1 week. 2. Right atrial thrombus-cardiology consulted. Patient on IV heparin drip during admission until INR therapeutic. INR 2.9 at discharge. Patient will hold Coumadin x1 day and then continue Coumadin 2 mg daily. Repeat INR in 2 days which will need to be ordered by primary care provider and can be completed by home health. 3. Chronic kidney disease stage III-stable. 4. Anemia of chronic disease-stable. 5. Paroxysmal atrial fibrillation-continue carvedilol, aspirin. Initiated on Coumadin secondary to #2. 6. Hypertension-stable, continue carvedilol, isosorbide, Entresto. 7. Status post AICD 8. Monoclonal gammopathy-unknown etiology. 9. 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 10. History of left atrial thrombus and left ventricular mural thrombus/history of PE 11. Depression-continue sertraline regimen. 12. GERD-not on regimen. General: Alert, Oriented x3, Cooperative HEENT: Atraumatic, PERRLA, EOMI, Normocephalic Oral: Dry Mucosa Neck: Supple, No JVD, Negative Carotid Bruits Lungs: Clear to auscultation, Diminished Cardiovascular: Regular rate, Regular Rhythm, Normal S1, Normal S2, Murmur Abdomen: Bowel Sounds Present, Soft, Non Tender, Non-Distended Extremities: No clubbing, No cyanosis, No edema, Capillary Refill Less than 3 Seconds Skin: No rashes, No breakdown Musculoskeletal: No Tenderness to Palpation of Joints or Extremities Neurological: Cranial nerves II-XII grossly intact, Neuro grossly intact Psych/Mental Status: Normal Affect, Appropriate Patient seen and examined prior to discharge. Physical assessment as noted above. Patient is stable for discharge with follow up recommendations as noted above. Patient has consult with palliative care on Friday which I feel is very appropriate for patient. She has a history of falls and is now on Coumadin for right atrial thrombus. Patient reports a recent steady decline in health and functional status. Agreeable to home health and palliative consult at discharge. This patient was seen by DUC Montero under the supervision of Dr. Hernandez. - Physical Exam Vitals/I&O's: Vital Signs Temp Pulse Resp BP Pulse Ox 97.4 F L 68 16 104/57 L 100 10/27/19 08:15 10/27/19 08:15 10/27/19 08:15 10/27/19 08:15 10/27/19 08:15 Oxygen Flow Rate (L/min) 2 Oxygen Delivery Method Nasal Cannula Weight: 120 lb 13.013 oz Body Mass Index (BMI) 22.1 Orthostatic Vital Signs Start: 10/22/19 18:06 Freq: q24h Status: Active Protocol: Activity Type Activity Date Activity User E-Sign Co-Sign Detail Recorded Client Recorded Date Recorded By Document 10/27/19 05:21 [facility]CG [id number] 10/27/19 05:36 [facility] 10/27/19 05:21 Orthostatic Vitals Standing -Blood Pressure (90/60-120/80) 116/54 L -Extremity Use Left Arm -Pulse Rate (60-100) 69 Sitting -Blood Pressure (90/60-120/80) 115/58 L -Extremity Use Left Arm -Pulse Rate (60-100) 67 Lying -Blood Pressure (90/60-120/80) 96/41 L -Extremity Use Left Arm -Pulse Rate (60-100) 69 Intake and Output for Last 24 Hours 10/25/19 10/26/19 10/27/19 23:59 23:59 23:59 Intake Total 901.38 / 1021.38 1399.45 / 1399.45 162.2 / 162.2 Output Total 175 / 375 630 / 630 200 / 200 Balance 726.38 / 646.38 769.45 / 769.45 -37.8 / -37.8 Laboratory Results 10/26/19 03:20: Magnesium 2.7 H 10/26/19 10:14: APTT 55.1 H 10/26/19 16:32: APTT 56.9 H 10/27/19 05:55: PT 30.2 H, INR 2.9, APTT 46.8 H 10/27/19 05:55: WBC 3.6 L, RBC 2.49 L, Hgb 8.2 L, Hct 26.5 L, MCV 106.4 H, MCH 32.9 H, MCHC 30.9 L, RDW Std Deviation 51.6 H, RDW Coeff of Duane 13.3, Plt Count 138 L, MPV 10.2, Immature Gran % (Auto) 0.300, Neut % (Auto) 57.4, Lymph % (Auto) 25.0, [place] % (Auto) 11.0 H, Eos % (Auto) 5.8 H, Baso % (Auto) 0.5, Absolute Neuts (auto) 2.1, Absolute Lymphs (auto) 0.91, Nucleated RBC % 0 Current Medications Acetaminophen (Tylenol) 650 mg PO Q6H PRN PRN PRN Reason: Pain Score 1-3/Temp > 100.7 F Last Admin: 10/24/19 04:27 Dose: 650 mg Documented by: Al Hydroxide/Mg Hydroxide (Mylanta Ii) 30 ml PO Q6H PRN PRN PRN Reason: Gastric Burning Last Admin: 10/25/19 23:05 Dose: 30 ml Documented by: Albuterol Sulfate (Ventolin Aerosols) 2.5 mg INHALATION Q2H PRN PRN PRN Reason: SOB/Wheezing Aspirin (Ecotrin) 81 mg PO DAILY@0800 [facility] Last Admin: 10/27/19 09:39 Dose: 81 mg Documented by: Carvedilol (Coreg) 6.25 mg PO BID [facility] Last Admin: 10/27/19 09:38 Dose: 6.25 mg Documented by: Cholecalciferol (Vitamin D) 2,000 unit PO DAILY [facility] Last Admin: 10/27/19 09:38 Dose: 2,000 unit Documented by: Dicyclomine HCl (Bentyl) 10 mg PO DINNER [facility] Last Admin: 10/26/19 17:20 Dose: 10 mg Documented by: Duloxetine HCl (Cymbalta) 60 mg PO DAILY [facility] Last Admin: 10/27/19 09:38 Dose: 60 mg Documented by: Famotidine (Pepcid) 20 mg PO DAILY [facility] Last Admin: 10/27/19 09:38 Dose: 20 mg Documented by: Ferrous Sulfate (Ferrous Sulfate) 325 mg PO DAILY@1200 [facility] Last Admin: 10/26/19 09:14 Dose: 325 mg Documented by: Furosemide (Lasix) 20 mg PO BID@1000,1800 [facility] Last Admin: 10/27/19 09:38 Dose: 20 mg Documented by: Guaifenesin (Robitussin) 20 ml PO Q4H PRN PRN PRN Reason: COUGH Isosorbide Mononitrate (Imdur) 15 mg PO DAILY [facility] Last Admin: 10/27/19 09:38 Dose: 15 mg Documented by: Levothyroxine Sodium (Synthroid) 25 mcg PO DAILY@0600 [facility] Last Admin: 10/27/19 05:22 Dose: Not Given Documented by: Lorazepam (Ativan) 1 mg PO QHS [facility] Last Admin: 10/26/19 21:33 Dose: 1 mg Documented by: Lorazepam (Ativan) 0.5 mg PO DAILY@1200 [facility] Last Admin: 10/26/19 11:28 Dose: 0.5 mg Documented by: Mirtazapine (Remeron) 45 mg PO QHS [facility] Last Admin: 10/26/19 21:33 Dose: 45 mg Documented by: Morphine Sulfate () 1 mg IV Q3H PRN PRN PRN Reason: Pain Score 6-10/10 Multi-Ingredient Cream (Eucerin) 1 applic TOPICAL DAILY [facility]; Protocol Last Admin: 10/27/19 09:40 Dose: 1 applicatio Documented by: Multivitamins (Allbee W/C Caplet, Thera B Comp/C) 1 capsule PO DAILY [facility] Last Admin: 10/27/19 09:37 Dose: 1 capsule Documented by: Nitroglycerin (Nitrostat) 0.4 mg SUBLINGUAL Q5M PRN PRN Reason: CARDIAC/CHEST PAIN Prochlorperazine Edisylate (Compazine Iv) 5 mg IV Q4H PRN PRN PRN Reason: Breakthrough Nausea/Vomiting Sacubitril/Valsartan (Entresto 49 Mg-51 Mg Tablet) 1 each PO BID [facility] Last Admin: 10/27/19 09:39 Dose: 1 each Documented by: Senna/Docusate Sodium (Senokot-S, Rody-Colace) 2 tablet PO BID PRN PRN PRN Reason: Constipation Last Admin: 10/26/19 21:33 Dose: 2 tablet Documented by: Sertraline HCl (Zoloft) 150 mg PO QHS [facility] Last Admin: 10/26/19 21:33 Dose: 150 mg Documented by: Sodium Chloride () 10 - 40 ml IV UD PRN PRN Reason: SALINE FLUSH Last Admin: 10/27/19 08:13 Dose: 10 ml Documented by: Sodium Chloride (Banner Nasal [place]) 2 spray NASAL TID PRN PRN PRN Reason: NASAL DRYNESS Warfarin Sodium (Coumadin (Pbkc)) 3 mg PO DAILY@1700 [facility] Last Admin: 10/26/19 17:19 Dose: 3 mg Documented by: Discharge Diet: No Restrictions Discharge Activity: Return to Normal Activity Call your doctor if you observe: Shortness of breath, Dizziness, Fainting spells, Chest pain Home Medications: Medications to take at Discharge Dicyclomine HCl [Bentyl] 10 mg PO DINNER 08/29/17 Lorazepam [Ativan] 1 mg PO QHS 07/26/18 cholecalciferol (vitamin D3) 50 mcg (2,000 unit) capsule 2,000 unit PO DAILY 12/25/18 duloxetine 60 mg capsule,delayed release 60 mg PO DAILY 12/25/18 sertraline 100 mg tablet 150 mg PO QHS tab 12/25/18 furosemide 20 mg tablet 20 mg PO BID #180 tab 01/25/19 aspirin 81 mg tablet,delayed release 81 mg PO DAILY 05/05/19 carvedilol 6.25 mg tablet 6.25 mg PO BID #180 tab 06/21/19 Ferrous Sulfate [Iron] 325 mg PO DAILY 10/22/19 Isosorbide Mononitrate [Isosorbide Mononitrate ER] 15 mg PO DAILY 10/22/19 Lorazepam 0.5 mg PO DAILY@1200 10/22/19 Mirtazapine [Remeron] 45 mg PO QHS 10/22/19 Sacubitril/Valsartan 49-51 mg [Entresto 49 mg-51 mg Tablet] 1 ea PO BID 10/22/19 Vitamin B Complex [B Complex] 1 tab PO DAILY 10/22/19 Levothyroxine [Synthroid] 25 mcg PO DAILY@0600 #30 tab 10/27/19 Warfarin [Coumadin] 2 mg PO DAILY #30 tab 10/27/19 Following Prescrptions Were Given to Patient: Warfarin [Coumadin] 2 mg PO DAILY #30 tab Transmission Status: Received by [facility]/pharmacy #[id number] Levothyroxine [Synthroid] 25 mcg PO DAILY@0600 #30 tab Transmission Status: Received by [facility]/pharmacy #[id number] Primary Care Physician: Landry Muse MD [Primary Care Provider] - Please follow up with your Primary Care Physician in: 1 Week Please Follow Up With: Carlos Springer MD When: 1 Week Please Follow Up With: Palliative When: Continue appointment as scheduled on 10/29/2019 Disposition: Home with Home Health Minutes spent on discharge:: 35 Patient Condition:: Stable Medical Necessity - Tobacco Use Smoking Status: Never smoker Tobacco Use: Non-smoker Meaningful Use Info Meaningful Use Diagnoses (Choose all that apply): CHF - CHF ROMARIO/ARB ordered at discharge?: Yes Documented LVEF (%): 50 <Martha Hernandez - Last Filed: 10/27/19 11:50> Discharge Date and Diagnosis - Secondary Discharge Diagnosis Chronic Problems (Last Updated 10/25/19 @ 13:58 by Martha Hernandez MD) Biventricular congestive heart failure (Chronic) Depression (Chronic) Esophageal reflux (Chronic) Heart valve replaced (Chronic) Mitral & Tricuspid valves replaced 05/19/09 @ [facility] Nonrheumatic mitral valve regurgitation (Chronic) Dilated cardiomyopathy (Chronic) Atrial flutter (Chronic) Left atrial thrombus (Chronic) Frequent falls (Chronic) Biventricular automatic implantable cardioverter defibrillator in situ (Chronic) Acute exacerbation of CHF (congestive heart failure) (Chronic) Pure hypercholesterolemia (Chronic) Essential hypertension (Chronic) Paroxysmal atrial fibrillation (Chronic) MGUS (monoclonal gammopathy of unknown significance) (Chronic) Pancytopenia (Chronic) CKD (chronic kidney disease), stage III (Chronic) Chronic systolic congestive heart failure (Chronic) 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) Chronic respiratory failure (Chronic) S/P mitral valve repair (Chronic ~05/19/09) 05/19/09, Mitral valve repair with placement of #26 Fletcher-Madison annuloplasty ring, placement of Linn stitch & tricuspid valve repair with placement of #28 tricuspid annuloplasty ring @ [facility] S/P tricuspid valve repair (Chronic ~05/19/09) 05/19/09 @ [facility] Status post ablation of atrial flutter (Chronic) Ventricular tachycardia (Chronic) Pulmonary embolus (Chronic) Mural thrombus of cardiac apex (Chronic) Hospital Course and Treatment Summary of Care Provided: Hospitalist note: Discharge summary above reviewed and I concur with above discharge treatment plan. Patient was admitted because of shortness of breath, found to have acute on chronic diastolic CHF. She was treated with IV Lasix for diuresis and maintained on Coreg and nitrates. She was not on ROMARIO inhibitor's because of chronic kidney disease. Echocardiogram done and revealed ejection fraction of 50%, and she was found to have right atrial thrombus. She was continued on IV Lasix for diuresis and treatment, she was transitioned to p.o. Lasix. She was started on IV heparin drip for anticoagulation as well as Coumadin. Her INR was monitored. Respiratory status stabilized, symptoms improved and she was able to come down to oxygen on 2 L which is her baseline at home. Her kidney function remained stable at her baseline in spite of IV Lasix for diuresis. Her INR went up and it was 2.9 upon discharge, therapeutic. Patient discharged home in a stable medical condition, discharged on Coumadin 3 mg p.o. daily, instructed to not take Coumadin tonight and start taking Coumadin tomorrow night, discharged on Lasix 20 mg p.o. twice daily, continued on her previous other home medications without any changes, discharged on oxygen at 2 L, plan to follow-up with cardiology in 1 week, recommended follow-up with PCP in 1 to 2 weeks. Patient will have an appointment with palliative care this coming Friday, October 29, 2019. - Physical Exam General: Alert, Oriented x3, Cooperative, No apparent distress. HEENT: Atraumatic, PERRLA, EOMI. Neck: Supple, No JVD, Negative Carotid Bruits, Trachea Midline, Thyroid Normal. Lungs: Diminished breath sounds bilateral, scattered rhonchi, No wheeze, No rales. Cardiovascular: Regular rate, Regular Rhythm, Normal S1, Normal S2, PMI Normal. Abdomen: Bowel Sounds Present, Soft, Non Tender, Non-Distended, No Hepato- splenomegaly. Extremities: No clubbing, No cyanosis, No edema Skin: No rashes, No breakdown Neurological: Cranial nerves are intact, neuro grossly intact Vital Signs are stable. This note was generated with [employer]aggable dictation software. It may contain incorrect words, spelling, and punctuation that were not noted in checking the note before signing. - Physical Exam Vitals/I&O's: Vital Signs Temp Pulse Resp BP Pulse Ox 97.4 F L 68 16 104/57 L 100 10/27/19 08:15 10/27/19 08:15 10/27/19 08:15 10/27/19 08:15 10/27/19 08:15 Oxygen Flow Rate (L/min) 2 Oxygen Delivery Method Nasal Cannula Weight: 120 lb 13.013 oz Body Mass Index (BMI) 22.1 Orthostatic Vital Signs Start: 10/22/19 18:06 Freq: q24h Status: Active Protocol: Activity Type Activity Date Activity User E-Sign Co-Sign Detail Recorded Client Recorded Date Recorded By Document 10/27/19 05:21 [facility] [id number] 10/27/19 05:36 [facility] 10/27/19 05:21 Orthostatic Vitals Standing -Blood Pressure (90/60-120/80) 116/54 L -Extremity Use Left Arm -Pulse Rate (60-100) 69 Sitting -Blood Pressure (90/60-120/80) 115/58 L -Extremity Use Left Arm -Pulse Rate (60-100) 67 Lying -Blood Pressure (90/60-120/80) 96/41 L -Extremity Use Left Arm -Pulse Rate (60-100) 69 Intake and Output for Last 24 Hours 10/25/19 10/26/19 10/27/19 23:59 23:59 23:59 Intake Total 901.38 / 1021.38 1399.45 / 1399.45 162.2 / 162.2 Output Total 175 / 375 630 / 630 200 / 200 Balance 726.38 / 646.38 769.45 / 769.45 -37.8 / -37.8 Laboratory Results 10/26/19 03:20: Magnesium 2.7 H 10/26/19 16:32: APTT 56.9 H 10/27/19 05:55: PT 30.2 H, INR 2.9, APTT 46.8 H 10/27/19 05:55: WBC 3.6 L, RBC 2.49 L, Hgb 8.2 L, Hct 26.5 L, MCV 106.4 H, MCH 32.9 H, MCHC 30.9 L, RDW Std Deviation 51.6 H, RDW Coeff of Duane 13.3, Plt Count 138 L, MPV 10.2, Immature Gran % (Auto) 0.300, Neut % (Auto) 57.4, Lymph % (Auto) 25.0, [place] % (Auto) 11.0 H, Eos % (Auto) 5.8 H, Baso % (Auto) 0.5, Absolute Neuts (auto) 2.1, Absolute Lymphs (auto) 0.91, Nucleated RBC % 0 Current Medications Acetaminophen (Tylenol) 650 mg PO Q6H PRN PRN PRN Reason: Pain Score 1-3/Temp > 100.7 F Last Admin: 10/24/19 04:27 Dose: 650 mg Documented by: Al Hydroxide/Mg Hydroxide (Mylanta Ii) 30 ml PO Q6H PRN PRN PRN Reason: Gastric Burning Last Admin: 10/25/19 23:05 Dose: 30 ml Documented by: Albuterol Sulfate (Ventolin Aerosols) 2.5 mg INHALATION Q2H PRN PRN PRN Reason: SOB/Wheezing Aspirin (Ecotrin) 81 mg PO DAILY@0800 [facility] Last Admin: 10/27/19 09:39 Dose: 81 mg Documented by: Carvedilol (Coreg) 6.25 mg PO BID [facility] Last Admin: 10/27/19 09:38 Dose: 6.25 mg Documented by: Cholecalciferol (Vitamin D) 2,000 unit PO DAILY [facility] Last Admin: 10/27/19 09:38 Dose: 2,000 unit Documented by: Dicyclomine HCl (Bentyl) 10 mg PO DINNER [facility] Last Admin: 10/26/19 17:20 Dose: 10 mg Documented by: Duloxetine HCl (Cymbalta) 60 mg PO DAILY [facility] Last Admin: 10/27/19 09:38 Dose: 60 mg Documented by: Famotidine (Pepcid) 20 mg PO DAILY [facility] Last Admin: 10/27/19 09:38 Dose: 20 mg Documented by: Ferrous Sulfate (Ferrous Sulfate) 325 mg PO DAILY@1200 [facility] Last Admin: 10/27/19 11:41 Dose: 325 mg Documented by: Furosemide (Lasix) 20 mg PO BID@1000,1800 [facility] Last Admin: 10/27/19 09:38 Dose: 20 mg Documented by: Guaifenesin (Robitussin) 20 ml PO Q4H PRN PRN PRN Reason: COUGH Isosorbide Mononitrate (Imdur) 15 mg PO DAILY [facility] Last Admin: 10/27/19 09:38 Dose: 15 mg Documented by: Levothyroxine Sodium (Synthroid) 25 mcg PO DAILY@0600 [facility] Last Admin: 10/27/19 05:22 Dose: Not Given Documented by: Lorazepam (Ativan) 1 mg PO QHS [facility] Last Admin: 10/26/19 21:33 Dose: 1 mg Documented by: Lorazepam (Ativan) 0.5 mg PO DAILY@1200 [facility] Last Admin: 10/27/19 11:41 Dose: 0.5 mg Documented by: Mirtazapine (Remeron) 45 mg PO QHS [facility] Last Admin: 10/26/19 21:33 Dose: 45 mg Documented by: Morphine Sulfate () 1 mg IV Q3H PRN PRN PRN Reason: Pain Score 6-10/10 Multi-Ingredient Cream (Eucerin) 1 applic TOPICAL DAILY [facility]; Protocol Last Admin: 10/27/19 09:40 Dose: 1 applicatio Documented by: Multivitamins (Allbee W/C Caplet, Thera B Comp/C) 1 capsule PO DAILY [facility] Last Admin: 10/27/19 09:37 Dose: 1 capsule Documented by: Nitroglycerin (Nitrostat) 0.4 mg SUBLINGUAL Q5M PRN PRN Reason: CARDIAC/CHEST PAIN Prochlorperazine Edisylate (Compazine Iv) 5 mg IV Q4H PRN PRN PRN Reason: Breakthrough Nausea/Vomiting Sacubitril/Valsartan (Entresto 49 Mg-51 Mg Tablet) 1 each PO BID [facility] Last Admin: 10/27/19 09:39 Dose: 1 each Documented by: Senna/Docusate Sodium (Senokot-S, Rody-Colace) 2 tablet PO BID PRN PRN PRN Reason: Constipation Last Admin: 10/26/19 21:33 Dose: 2 tablet Documented by: Sertraline HCl (Zoloft) 150 mg PO QHS [facility] Last Admin: 10/26/19 21:33 Dose: 150 mg Documented by: Sodium Chloride () 10 - 40 ml IV UD PRN PRN Reason: SALINE FLUSH Last Admin: 10/27/19 08:13 Dose: 10 ml Documented by: Sodium Chloride (Banner Nasal [place]) 2 spray NASAL TID PRN PRN PRN Reason: NASAL DRYNESS Warfarin Sodium (Coumadin (Pbkc)) 3 mg PO DAILY@1700 [facility] Last Admin: 10/26/19 17:19 Dose: 3 mg Documented by: Disposition: Home with Home Health Minutes spent on discharge:: 33 Patient Condition:: Stable Meaningful Use Info Meaningful Use Diagnoses (Choose all that apply): CHF - CHF ROMARIO/ARB ordered at discharge?: Yes Documented LVEF (%): 50 Code Visit Inpatient E&M: 42478 Disch Hosp
[2019-10-27] MEDS: Ferrous Sulfate 325 MG Tablet PO (11:41)
[2019-10-27] MEDS: LORazepam 0.5 MG Tablet PO (11:41)
--- NOTE | 2019-10-27 12:14 | PHA.DC.MC ---
Pharmacy Service has performed discharge medication reconciliation and counseling for this patient. 1. WARFARIN 2MG PO DAILY - ADJUSTMENTS TO BE MADE BY [facility] 2. LEVOTHYROXINE 25MCG PO DAILY@0600 The patient's discharge medication list was reviewed for discrepancies and discrepancies were resolved. PT TOLD THIS PHARMD SHE WILL NOT TAKE LEVOTHYROXINE. SHE REPORTS IT CAUSING RENAL FAILURE REQUIRING DIALYSIS YEARS AGO. THIS PHARMD NOTIFIED TEMIOTPE THAT PT HAS BEEN REFUSING LEVOTHYROXINE SINCE ADMISSION AND SHE IS HESITANT TO START AT DISCHARGE. TEMITOPE WOULD LIKE PT TO TRY AGAIN D/T TSH LEVEL. THIS PHARMD SPOKE WITH THE PATIENT AND TOLD HER TEMITOPE FEELS THE LEVOTHYROXINE WOULD BE BENEFICIAL SHE WOULD LIKE THE PT TO START LEVOTHYROXINE AT HOME. PT VERBALIZED UNDERSTAND AND SAID SHE WOULD SPEAK WITH DR LEWIS AT HER APPOINTMENT ON FRIDAY AND CONSIDER STARTING. Home Medications Dicyclomine HCl [Bentyl] 10 mg PO DINNER 08/29/17 Lorazepam [Ativan] 1 mg PO QHS 07/26/18 cholecalciferol (vitamin D3) 50 mcg (2,000 unit) capsule 2,000 unit PO DAILY 12/25/18 duloxetine 60 mg capsule,delayed release 60 mg PO DAILY 12/25/18 sertraline 100 mg tablet 150 mg PO QHS tab 12/25/18 furosemide 20 mg tablet 20 mg PO BID #180 tab 01/25/19 aspirin 81 mg tablet,delayed release 81 mg PO DAILY 05/05/19 carvedilol 6.25 mg tablet 6.25 mg PO BID #180 tab 06/21/19 Ferrous Sulfate [Iron] 325 mg PO DAILY 10/22/19 Isosorbide Mononitrate [Isosorbide Mononitrate ER] 15 mg PO DAILY 10/22/19 Lorazepam 0.5 mg PO DAILY@1200 10/22/19 Mirtazapine [Remeron] 45 mg PO QHS 10/22/19 Sacubitril/Valsartan 49-51 mg [Entresto 49 mg-51 mg Tablet] 1 ea PO BID 10/22/19 Vitamin B Complex [B Complex] 1 tab PO DAILY 10/22/19 Levothyroxine [Synthroid] 25 mcg PO DAILY@0600 #30 tab 10/27/19 Warfarin [Coumadin] 2 mg PO DAILY #30 tab 10/27/19 The patient was counseled on the following discharge medications and changes in medications for homegoing were reviewed. The Reason for Use, instructions for use, and potential side effects were reviewed for all new medications. The patient's questions regarding all of their medications were answered. The patient was able to verbally demonstrate an understanding of their discharge medications.
--- NOTE | 2019-10-27 14:45 | CASEMGMT ---
Per son, they have been trying to transfer home oxygen to [facility] but it has not been successful thus far and he states he has numerous empty tanks at home. Call to Shimon at [facility] and he states that they have tried to obtain transfer from [facility] but states that [facility] is stating that they do not have orders for pt. Call to [facility] and Cheikh states that they do have home oxygen order for pt for 2liters cont and 3liters with ambulation. She states they just need the transfer request faxed from [facility] to [phone] and they can get it all transferred. Call to Diandra at [facility] and she is updated on all at this time, voices understanding. Diandra states that the request noted for pt was for pap supplies and this RN CM notified her that pt does not have cpap/bipap at home. Diandra is updated, voices understanding. Diandra states she will fax transfer to above listed number at this time and get home oxygen transferred for pt. Diandra is aware that son states they have multiple empty portable tanks that need refilled, voices understanding. Pt's son updated on all at this time, voices understanding and voices no further questions/concerns/needs at this time. Son is also aware of [facility] and voices agreeance. This RN JOHANNA then received call from Regla at [facility] stating that Dr. Muse will not sign HHC orders at this time as pt has no-showed for last [address] Muse. Pt is scheduled for f/u on 11/04/[address] Muse states he will sign once he sees pt. Jadyn SCHAFER aware and she updated pt/family at this time. Pt/son encouraged to get in for sooner appt so that HHC can get started. Pt will also need repeat INR. Pt/son voice no further questions/concerns/needs at this time. Pop SCHAFER CM
--- NOTE | 2019-10-27 14:49 | NURSING ---
notified patient and son of home health changes. PCP will not sign for HH until seen in office d/t history of no show visits. pt to follow-up November 04. instructed son to call and see if earlier appt available. pt son/pt also made aware that would need to call Dr Muse's office prior to Friday for order for lap recheck. son verifies understanding. denies further questions.
--- NOTE | 2019-10-28 16:50 | CASEMGMT ---
GILMAR SPENCER Discharge Follow-up Phone Call: LOLI: Alvino Strata: 4 Call Date: 10/28/2019 Discharge Date: 10/27/2019 Time of Call: 1635 Duration: 7 minutes Admitting Diagnosis: A/C Diastolic CHF. Discharge follow-up call placed to pt. Pt states her breathing has improved from first presenting to the hospital but she states she still has trouble. Noted pt slightly short of breath with talking. Pt states she has been wearing her O2 at 3l/min and has been taking her medications as prescribed. Pt denies any questions about these or her discharge instructions. Pt is aware of palliative care visit planned for tomorrow. Pt states she does not know if her son was able to move up her appointment with Dr. Muse or not. Permission obtained to contact her son and confirmed his phone number. Attempted to contact pt's son to discuss the appointment with Dr. Muse but voicemail received. Message left to return this call if assistance needed. Pt states she does plan to go to the outpt lab at the [facility] to get her INR checked tomorrow. Pt states she does not weigh herself daily or regularly but knows that she is supposed to do so. Reinforced that this helps keep track of her fluid balance. Pt denied any other questions or concerns.
== END 2019-10-27 14:49 | disposition home health service (06) | DRG 291 ==
LOC: ED 14:48 → PCU 16:12
PROVIDERS: Family Medicine; Nurse Practitioner Family; Admitting Provider Internal Medicine; Emergency Provider Emergency Medicine; PCP Family Medicine; Visit Provider Hospitalist
DX: I13.0 Hypertensive heart and chronic kidney disease with heart failure and stage 1 through stage 4 chronic kidney disease, or unspecified chronic kidney disease (principal); I50.43 Acute on chronic combined systolic (congestive) and diastolic (congestive) heart failure; E87.3 Alkalosis; J96.11 Chronic respiratory failure with hypoxia; D61.818 Other pancytopenia; I48.92 Unspecified atrial flutter; D63.1 Anemia in chronic kidney disease; N18.3 Chronic kidney disease, stage 3 (moderate); I48.0 Paroxysmal atrial fibrillation; D47.2 Monoclonal gammopathy; F32.9 Major depressive disorder, single episode, unspecified; K21.9 Gastro-esophageal reflux disease without esophagitis; E78.5 Hyperlipidemia, unspecified; E03.9 Hypothyroidism, unspecified; I42.0 Dilated cardiomyopathy; I51.3 Intracardiac thrombosis, not elsewhere classified; Z95.810 Presence of automatic (implantable) cardiac defibrillator; R29.6 Repeated falls; E78.00 Pure hypercholesterolemia, unspecified; I34.0 Nonrheumatic mitral (valve) insufficiency; Z86.711 Personal history of pulmonary embolism; Z79.82 Long term (current) use of aspirin; Z79.899 Other long term (current) drug therapy; Z86.79 Personal history of other diseases of the circulatory system; Z90.49 Acquired absence of other specified parts of digestive tract; Z82.49 Family history of ischemic heart disease and other diseases of the circulatory system; Z82.3 Family history of stroke; Z66 Do not resuscitate; Z90.710 Acquired absence of both cervix and uterus; F41.9 Anxiety disorder, unspecified; D50.9 Iron deficiency anemia, unspecified
CPT/HCPCS: 36415; 71046; 80048; 80053; 80061; 81001; 83735; 83880; 84100; 84436; 84443; 84481; 84484; 85025; 85027; 85610; 85730; 87804; 93005; 93306; 97110; 97162; 97166; 99251; 99285; J7030; A4216; G0463; J1940